=== PATIENT | female | born 1935 | race Caucasian/White ===

== ENCOUNTER → 2017-09-06 11:28 | Outpatient (CLI) | payer MEDICARE, BC, SELFPAY ==
--- NOTE | 2017-09-06 11:33 | RAD_ITS ---
STUDY: X-RAY - SACRUM/COCCYX REASON FOR EXAM: Female, 82 years old. Back pain. TECHNIQUE: 4 view(s) of the sacrum and coccyx were obtained. COMPARISON: None. FINDINGS: There is generalized osteopenia. There is mild arthrosis of both sacroiliac joints. Extensive laminectomy and fusion changes are noted in the lower lumbar spine. There are phleboliths in the pelvis. RAD/Sacrum-Coccyx min 2 Views IMPRESSION: Osteopenia with postsurgical changes in the lower lumbar spine. Mild arthrosis of the sacroiliac joints. No acute abnormality. Electronically Signed: Leonardo Welsh MD at 17:22 EST , Service support ,
--- NOTE | 2017-09-06 11:33 | RAD_ITS ---
STUDY: X-RAY - THORACIC SPINE REASON FOR EXAM: Female, 82 years old. Chronic back pain. TECHNIQUE: 4 view(s) of the thoracic spine were obtained. COMPARISON: None. FINDINGS: Normal kyphosis of the thoracic spine. There is no substantial scoliosis. There is demineralization of the thoracic spine with endplate spondylosis. There is multilevel disc space narrowing of the thoracic spine. Atherosclerotic calcification of the aortic arch. RAD/Thoracic Spine 3 Views IMPRESSION: Multilevel disc space narrowing and spondylosis. Electronically Signed: Sandoval Arteaga MD at 15:55 EST Tel [phone], Service support ,
--- NOTE | 2017-09-06 11:33 | RAD_ITS ---
STUDY: X-RAY - LUMBAR SPINE REASON FOR EXAM: Female, 82 years old. Back pain. TECHNIQUE: 4 view(s) of the lumbar spine were obtained. COMPARISON: April 29, 2014 FINDINGS: There is generalized osteopenia. There are stable laminectomies with posterior fusion from L4 to S1. There is marked intervertebral disc space narrowing of the lower thoracic and upper lumbar vertebral bodies. There is a 11 mm of anterolisthesis of L5 on S1 unchanged. There is vascular calcification. There are clips in the right lower quadrant of the abdomen. There are coils projected over the sacrum. RAD/L/S Spine Min 4 Views IMPRESSION: Stable appearance of the lumbar spine with postfusion changes, lumbar spondylosis and grade 1 anterolisthesis of L5 on S1. No new or acute abnormality. Electronically Signed: Leonardo Welsh MD at 17:25 EST , Service support ,
== END ==
PROVIDERS: Family Provider Nurse Practitioner; PCP Nurse Practitioner; Visit Provider Anesthesiology
DX: M54.5 Low back pain (principal)
CPT/HCPCS: 72072; 72110; 72220

== ENCOUNTER → 2017-09-12 13:44 | Outpatient (CLI) | payer MEDICARE, BC, SELFPAY ==
--- NOTE | 2017-09-12 13:49 | RAD_ITS ---
STUDY: X-RAY - LEFT ELBOW REASON FOR EXAM: Female, 82 years old. Pain, fall TECHNIQUE: 3 view(s) of the elbow. COMPARISON: None. FINDINGS: Normal visualized humerus, radius and ulna. Normal radiocapitellar and ulnotrochlear articulations. The soft tissue structures are unremarkable. RAD/Elbow min 3 Views IMPRESSION: Normal x-ray examination of the elbow. Electronically Signed: Moncho Jimenez DO at 22:49 EST Tel [phone], Service support ,
== END ==
PROVIDERS: Family Provider Nurse Practitioner; PCP Nurse Practitioner; Visit Provider Nurse Practitioner
DX: M25.522 Pain in left elbow (principal)
CPT/HCPCS: 73080

== ENCOUNTER → 2017-09-20 14:13 | Outpatient (CLI) | payer MEDICARE, BC, SELFPAY ==
[2017-09-20 14:24] LABS: Absolute Lymphocyte Count 0.92 X10^3/ul (0.83-4.51); Absolute Neutrophil Count 5.6 X10^3/uL (2.0-7.7); Basophil# 0.04 X10^3/uL; Basophil% 0.5 % (0-1); Eosinophil# 0.16 X10^3/uL; Eosinophils% 2.1 % (0-5); Hematocrit 25.9 % (37-47); Hemoglobin 7.3 g/dl (12.0-15.0); Lymphocyte # 0.92 X10^3/ul (4.0); Lymphocyte % 12.2 % (19-41); Mean Corp Hgb Conc 28.2 g/gl (32-36); Mean Corpuscular Hgb 26.8 pg (27.0-32.0); Mean Corpuscular Volume 95.2 fL (81-99); Mean Platelet Vol. 9.3 fl (6.2-12.0); Monocyte# 0.84 X10^3/uL; Monocyte% 11.1 % (0-10); Neutrophil # 5.58 X10^3/uL (2.7-7.7); POSITIVE COUNT NO; POSITIVE DIFFERENTIAL NO; POSITIVE MORPHOLOGY NO; Platelet Count 369 K/mm3 (150-450); RBC Distribution Width CV 17.9 % (11.6-14.6); RBC Distribution Width SD 59.2 fl (35.1-43.9); Red Blood Count 2.72 M/mm3 (4.2-5.4); White Blood Count 7.6 K/mm3 (4.4-11.0)
== END ==
PROVIDERS: Family Provider Nurse Practitioner; PCP Nurse Practitioner; Visit Provider Nurse Practitioner
DX: D64.9 Anemia, unspecified (principal)
CPT/HCPCS: 85025

== ENCOUNTER 2017-09-20 15:52 | Emergency (ER) | payer MEDICARE, BC, SELFPAY ==
[2017-09-20 15:53] VITALS: BP 158/78; PULSE 94; RESP 18; TEMP 36.8; O2SAT 98; BMI 40.6
--- NOTE | 2017-09-20 16:24 | RAD_ITS ---
STUDY: X-RAY CHEST REASON FOR EXAM: Female, 82 years old. COMPLAINS OF N/V/D, ABD PAIN, EDEMA BILATERAL LEGS FOR PAST 2-3 WEEKS. FATIGUED, SOB TECHNIQUE: Single frontal view of the chest. COMPARISON: None. FINDINGS: Chronic appearing increased interstitial lung markings. There is a hiatal hernia. There is no demonstrated pleural abnormality. Enlarged heart size. Normal mediastinum and georgi. Normal visualized pulmonary arteries. There is atherosclerotic calcification of the aortic arch with tortuosity. There are diffuse degenerative changes of the visualized thoracic spine. There is degenerative osteoarthritis of the bilateral shoulders. There is no demonstrated abnormality of the visualized soft tissue structures of the upper abdomen. RAD/Chest 1 View (Portable) IMPRESSION: There are no acute findings. Large hiatal hernia. Cardiomegaly. Electronically Signed: Lyle Marks MD at 16:57 EST , Service support ,
--- NOTE | 2017-09-20 16:30 | ED.VISSUMM ---
- ER Visit Summary Date of Service: 09/20/17 Chief Complaint: Diarrhea History of Present Illness: The patient is a 82 F who sees Heidi Nelson. She reports that she has diarrhea that began 2-3 week ago. She is having this 2-3 times per day. She reports that she did not have any last evening and has not had any today. Ports there is 1-2 drops of bright red blood. However, the diarrhea itself is black. She is on iron, but reports that it is very foul-smelling. She complains of an aching diffuse abdominal pain that is 8 out of 10 at worst and 5 out of 10 currently. Is worsened by nothing and relieved by having a bowel movement. Patient reports she is short of breath with walking. She denies any chest pain. She has ankle and leg swelling over the same timeframe as the diarrhea that she has not had previously to this degree. She also complains of generalized weakness. Physical Examination: Vitals: Stable. Afebrile. General: Well-nourished and well-developed. Head: Normocephalic atraumatic. Neck: Supple, no lymphadenopathy. No JVD. Nontender. Cardiovascular: Regular rate and rhythm. No murmurs. Respiratory: No respiratory distress. Clear to auscultation bilaterally. Abdominal: Soft, mild diffuse sinus palpation that is worst in the epigastric region, nondistended, normal bowel sounds. No guarding, rebound, or peritoneal signs. Back: Nontender. Extremities: Nontender, no edema. Skin: Normal color, no rash. Neurologic: Alert and oriented ?3. Cranial nerves II through XII are intact. Normal strength and sensation. Psych: Normal affect. Test Results: CBC is remarkable for an H&H of 7.3 and 25.9, segmented neutrophils of 74, lymphocytes of 12, monocytes of 11. Her last hemoglobin was on June 162016 and at that time it was 13.1. Was 9.5-11.4 the remainder of 2017. Chem-7 is marked for chloride of 110, calcium 8.4, creatinine 1.25. LFTs marked for total protein is 6.2, albumin of 3.0, AST of 13. Lipase is normal. INR is 1.0. PTT is 25.0. Chest x-ray shows a large hiatal hernia. Emergency Department Course and Treatment: Patient had an IV placed. She was given a 500 cc bolus of normal saline. She was given Protonix IV. Orthostatic vital signs were negative. However, she was very short of breath with ambulating to the bathroom. Treatment Plan: Patient was discussed with Dr. Dumont who is reviewed her records. She states because of the hiatal hernia and the potential of bleeding from that that the patient needs to be transferred as this is out of her scope of practice. I discussed this with the patient and her family. They have opted to go to [facility]. She was discussed with Dr. Villa who is accepted her in transfer. Disposition: Transferred in stable condition. Impression: 1. Anemia, acute. 2. Diarrhea. 3. Hiatal hernia. This note was generated with [employer] dictation software. It may contain incorrect words, spelling, and punctuation that were not noted in review of the chart prior to signing ED Disposition - Plan for ED Patient: Chief Complaint: Nausea/Vomiting/Diarrhea Referrals: Heidi Mack [ALLIED HEALTH PROFESSIONAL] -
[2017-09-20 16:43] VITALS: BP 181/78; BP 188/87; BP 189/92; PULSE 100; PULSE 90; PULSE 94
[2017-09-20 17:07] LABS: AST(SGOT) 13 U/L (15-37); Alanine Aminotransfer ALT/SGPT 19 U/L (13-56); Alkaline Phosphatase 84 U/L (45-117); Anion Gap 11 (5-15); BUN 17 mg/dL (7-18); BUN/Creat Ratio 13.6 RATIO (10-20); Bilirubin, Direct 0.07 mg/dL (0.00-0.30); Calcium,Total 8.4 mg/dL (8.5-10.1); Chloride 110 mmol/L (98-107); Creatinine, Serum 1.25 mg/dL (0.55-1.02); EST Glomerular Filtration Rate 44 mL/min (>60); Est Glom Filt Rate - Afr Amer 53 mL/min (>60); Estimated Creatinine Clearance 49.15 ml/min; Globulin 3.2 g/dL (2.2-4.2); Glucose 100 mg/dL (74-106); Lipase 115 U/L (73-393); Protein, Total 6.2 g/dL (6.4-8.2); Sodium Level 144 mmol/L (136-145)
[2017-09-20 18:22] VITALS: PULSE 95; RESP 20; O2SAT 100
[2017-09-20 18:24] VITALS: BP 158/71; PULSE 98; RESP 20; O2SAT 100
--- NOTE | 2017-09-20 19:42 | ED.RN ---
CALLED [facility] TO SEE IF WE WERE STILL WAITING ON A BED FOR PATIENT. ROSETTA IN THE CALL CENTER STATED THAT WE HAD A BED, SHE GAVE IT TO ME AND THE NUMBER FOR NURSE TO NURSE.
[2017-09-20 20:24] VITALS: BP 139/72; PULSE 94; RESP 15; O2SAT 100
== END 2017-09-20 20:45 | disposition short-term general hospital (02) ==
PROVIDERS: Emergency Provider Emergency Medicine; Family Provider Internal Medicine; PCP Internal Medicine
DX: D64.9 Anemia, unspecified (principal); R19.7 Diarrhea, unspecified; K44.9 Diaphragmatic hernia without obstruction or gangrene; K92.1 Melena; R10.84 Generalized abdominal pain; I10 Essential (primary) hypertension; R06.02 Shortness of breath; M79.89 Other specified soft tissue disorders; R51 Headache; Z86.718 Personal history of other venous thrombosis and embolism; Z79.52 Long term (current) use of systemic steroids; Z79.899 Other long term (current) drug therapy
CPT/HCPCS: 71045; 80048; 80076; 83690; 85025; 85610; 85730; 86850; 86900; 96361; 96365; 96366; 99285; J7040; A4216; J3490

== ENCOUNTER 2017-10-05 13:00 | Outpatient (RCR) | payer MEDICARE, BC, SELFPAY ==
--- NOTE | 2017-09-11 08:16 | HP.PTEVAL ---
Patient's Visit Information LOLLY HUSAIN is a 82 year old F referred to Physical Therapy by MD SAMANTHA Aj with a diagnosis of Low back pain and leg pain. Date of Evaluation: 09/06/17 Physical Therapist: Fernie Coronado - Visit Plan Frequency: 2x /Week Duration: 4-6 Weeks Plan: Start with supine core strengthening, HS stretching, flexion based exercises (but small ROM). Use lossings traction with ice/heat to reduce symptoms. Progress to functional strengthening once symptoms have reduced. - Subjective Subjective: Pt. is here today for her initial evaluation with diagnosis of low back pain and leg pain. She reports having pain for many years with having 2 surgeries, pt. unsure of what lumbar surgeries that were performed. Pt. has had increased pain over the last 4 years. Increase pain: walking, bending, lifting. Decreases pain: pain meds (slightly), sitting, injections (slightly). Pt. has trialed ice and heat, minimal relief. Pt. reports pain radiating down BLE with walking, standing and prolonged sitting. Pt. reports having a constant 10/10 pain that elevates to 10/14 at times. She lives at home and increased assistance from daughter. Pt. denies N/T and no change in B/B. She did have PT in aquatic setting last year without positive changes. Pt. reports using FWW with all mobility, but does not leave the house unless to visit physician. Pt. uses temprapedic bed at home with ability to elevate her head. Pt. does get leg pain that extends to her feet at times, down posterior aspect of her legs. Pt. had recent injections with slight reduction in symptoms. She is hopeful to reduce symptoms in order to improve quality of life and increase overall mobility. - Pain Lumbar spine Pain Intensity (Out of 10): 10 Pain Intensity Range: 4, 10 Bilateral LEs Pain Intensity (Out of 10): 6 Pain Intensity Range: 3, 10 - Objective POSTURE: Pt. has overall generally flexed posture. Pt. stands with FWW without heavy use. Pt. has wide ETHEL with anteror tilted pelvis. She has rounded shoulders and FH. PALPATION: Pt. has increased pain with palpation throughout lumbar erector spinea, bilateral SI region, mild pain at bilateral piriformis and HS region. NEUROLOGICAL: Pt. has has normal sensation to light and sharp touch of bilateral LEs. Pt. has 2+ patellar and achilles DTR. Pt. has difficulty rising on heels and toes and requires BA to complete. Pt. does have increased postural sway with removal of BA. ROM: LUMBAR SPINE: flexion mod loss mild increase NW, ext max loss incease worse, SB mod loss bilat increase NW, rotation mod loss bilat increase NW. HIP- R- flexion 100deg increase NW, abd 45deg NE, ext 8deg increase NW, ER 48deg increase NW, IR 28deg increase NW. L hip- flexion 108deg increase NW, abd 43deg NE, ext 6deg increase NW, ER 49deg increase NW, IR 22deg increase NW. MMT: RLE- ankle- 5-/5 throughout; knee- 4/5 throughout; hip- flexion 4-/5, abd 4-/5, ext 4-/5. LLE- ankle 4+/5 throughout; knee- 5/5 throughout; hip- flexion 4-/5, abd 4-/5, ext 4-/5. Core strength- poor. GAIT: Pt. was able to ambulate with FWW 1x89ft. with increased posterior BLE pain, increased fatigue (pt. reports high levels of fatigue). Pt. has heavy use of AD, fwrd flexed posture (difficulty correcting with increased pain). Pt. has decreased step length bilaterally., minimal hip ext noted. - Special Tests L/S Slump test left side: Negative L/S Slump test right side: Negative L/S Left Straight Leg Raise: Negative L/S Right Straight Leg Raise: Negative Lumbar Standing: Flexion - Mechanical Response: No effect Lumbar Standing: Flexion - Symptoms During Testing: Increases Lumbar Standing: Flexion - Symptoms After Testing: No worse Lumbar Standing: Extension - Mechanical Response: No effect Lumbar Standing: Extension - Symptoms During Testing: Increases Lumbar Standing: Extension - Symptoms After Testing: Worse Lumbar Standing: Right Side Glides - Mechanical Response: No effect Lumbar Standing: Right Side [place] - Symptoms During Testing: Increases Lumbar Standing: Right Side [place] - Symptoms After Testing: No worse Lumbar Standing: Left Side [place] - Mechanical Response: No effect Lumbar Standing: Left Side [place] - Symptoms During Testing: Increases Lumbar Standing: Left Side [place] - Symptoms After Testing: No worse Lumbar Lying: Flexion - Mechanical Response: No effect Lumbar Lying: Flexion - Symptoms During Testing: Decreases Lumbar Lying: Flexion - Symptoms After Testing: No better Comments:: Pt. has postive cross legged testing - Goals Goal 1:: P. to be I with HEP. Goal Time Frame: 4-6 Weeks Goal 2:: Pt. to have increased BLE and core strength by 1/2 grade of all effected musculature reducing stress applied to lumbar spine with all functional mobility. Goal Time Frame: 4-6 Weeks Goal 3:: Pt. to have decreased pain while sitting to 3-4/10 allowing for increased quality of life. Goal Time Frame: 4-6 Weeks Goal 4:: Pt. to walk 200ft.+ with FWW GLENN with 3-4/10 pain allowing for increased ability to ambulate in community. Goal Time Frame: 4-6 Weeks Goal 5:: Pt. to sleep throughout the night with 2-4/10 pain allowing for increased quality of life. Goal Time Frame: 4-6 Weeks - Rehabilitation Potential Physical Therapy Diagnosis: Pt. has signs and symptoms with lumbar spine pathology most likely spinal stenosis with radiationg down BLEs. Pt. has significant weakness in BLEs and core strength. Pt. is also deconditioned with all fucntional mobility, walking upto 89ft. this date. Pt. appears to have a slight directional preference for flexion, but would ultimately have benefit from PT to increase overall mobility and increase BLE and core strength. Rehabilitation Potential: Fair - Anticipated Interventions Patient/Client Instruction: Educate patient on: Condition, Plan of Care, Risk Factors, Benefits of Fitness Program For the Purpose of:: To improve health and function, To foster healthy habits, To improve decision making, To facilitate caregiver knowledge, To improve self management, To prevent re-injury, To improve ability to perform tasks related to life management, To improve tolerance to ADL's Therapeutic Exercise to Include: Strength training, Power training, Postural training, Flexibilty training, Gait and locomotor training, Passive ROM, Active ROM, Dynamic Lumbar Stabilization, Vicky Exercises For the Purpose of:: To decrease pain, To increase ROM, To improve nutrient delivery to tissue, To increase oxygenation perfusion, To improve muscle performance and motor function, To improve ability to perform ADL's, To increase tolerance to activity/condition/position, To improve performance and independence with ADL's, To decrease level of supervision to perform tasks, To improve ability of physical actions for home/community/work/leisure, To improve gait and locomotor functions, To improve health of tissue IF ES: Yes Ultrasound (thermal/non thermal): Yes Pelvic traction supine: Yes For the Purpose of:: To decrease pain, To increase ROM, To improve nutrient delivery to tissue, To increase oxygenation perfusion, To improve muscle performance and motor function, To improve ability to perform ADL's Thank you for the opportunity to evaluate your patient. For Medicare and Medicare HMO plans, please review the plan of care and approve it. It will need to be FAXED BACK to us at [phone] for Medicare purposes. Please let me know if there are questions or concerns regarding this plan of care. Physician Signature: Date:
--- NOTE | 2018-03-07 18:49 | HP.PT.NRP ---
HP - Discharge Summary (1) - Patient Information LOLLY HUSAIN was seen in my office for initial evaluation on 09/06/17. The following Plan of Care was established for this patient: Initial Frequency: 2x /Week Initial Duration: 4-6 Weeks - Anticipated Interventions Patient/Client Instruction: Educate patient on: Condition, Plan of Care, Risk Factors, Benefits of Fitness Program For the Purpose of:: To improve health and function, To foster healthy habits, To improve decision making, To facilitate caregiver knowledge, To improve self management, To prevent re-injury, To improve ability to perform tasks related to life management, To improve tolerance to ADL's Therapeutic Exercise to Include: Strength training, Power training, Postural training, Flexibilty training, Gait and locomotor training, Passive ROM, Active ROM, Dynamic Lumbar Stabilization, Vicky Exercises For the Purpose of:: To decrease pain, To increase ROM, To improve nutrient delivery to tissue, To increase oxygenation perfusion, To improve muscle performance and motor function, To improve ability to perform ADL's, To increase tolerance to activity/condition/position, To improve performance and independence with ADL's, To decrease level of supervision to perform tasks, To improve ability of physical actions for home/community/work/leisure, To improve gait and locomotor functions, To improve health of tissue IF ES: Yes Ultrasound (thermal/non thermal): Yes Pelvic traction supine: Yes For the Purpose of:: To decrease pain, To increase ROM, To improve nutrient delivery to tissue, To increase oxygenation perfusion, To improve muscle performance and motor function, To improve ability to perform ADL's This patient was last seen in our office 10/05/17. Pertinent comments regarding their Physical therapy will appear below: Pt. was seen for her low back pain and leg pain. Pt. was treated with BLE/core stability exercises. Pt. cancelled the rest of her appointments as she felt that her symptosm were getting worse. Pt. has not been seen in 4 months and will be DC from PT at this point in time. At this point I will be discontinuing this patient from physical therapy. I would be happy to see this patient again in the future if found appropriate by the physician. Thank you! Fernie Coronado
== END 2017-10-05 19:00 | disposition home or self-care (01) ==
LOC: PT 13:00
PROVIDERS: Family Provider Nurse Practitioner; PCP Nurse Practitioner; Visit Provider Anesthesiology
DX: M54.9 Dorsalgia, unspecified (principal); M79.606 Pain in leg, unspecified; M54.5 Low back pain
CPT/HCPCS: 72072; 72110; 72220; 97012; 97035; 97110; 97162

== ENCOUNTER → 2017-10-24 15:13 | Outpatient (CLI) | payer MEDICARE, BC, SELFPAY ==
--- NOTE | 2017-10-24 15:18 | RAD_ITS ---
STUDY: X-RAY CHEST REASON FOR EXAM: Female, 82 years old. Cough and congestion TECHNIQUE: PA and lateral views of the chest. COMPARISON: 09/20/2017 FINDINGS: Large hiatal hernia with air-fluid level again noted. The lungs are clear and expanded. There is no demonstrated pleural abnormality. Normal size heart. Normal mediastinum and georgi. Normal visualized pulmonary arteries. Normal visualized aortic arch and descending thoracic aorta. Normal visualized thoracic spine. Normal visualized ribs, clavicles, and shoulders. There is no demonstrated abnormality of the visualized soft tissue structures of the upper abdomen. RAD/Chest PA and Lateral IMPRESSION: Clear lungs. Stable large hiatal hernia with air-fluid level Electronically Signed: Stef Mendez DO at 16:03 EDT Tel , Service support ,
== END ==
PROVIDERS: Family Provider Internal Medicine; PCP Internal Medicine; Visit Provider Internal Medicine
DX: R05 Cough (principal)
CPT/HCPCS: 71046

== ENCOUNTER → 2017-11-15 16:44 | Outpatient (CLI) | payer MEDICARE, BC, SELFPAY ==
[2017-11-15 17:52] LABS: Hemoglobin 8.8 g/dl (12.0-15.0); Mean Corp Hgb Conc 29.3 g/gl (32-36); Mean Corpuscular Hgb 23.9 pg (27.0-32.0); Mean Corpuscular Volume 81.5 fL (81-99); Mean Platelet Vol. 9.3 fl (6.2-12.0); Platelet Count 329 K/mm3 (150-450); RBC Distribution Width CV 19.8 % (11.6-14.6); RBC Distribution Width SD 56.1 fl (35.1-43.9); Red Blood Count 3.68 M/mm3 (4.2-5.4); White Blood Count 10.3 K/mm3 (4.4-11.0)
[2017-11-15 17:55] LABS: Scan Indicated on CBC? Y/N NO
[2017-11-15 18:34] LABS: Ferritin 15 ng/mL (8-252); Iron 20 ug/dL (50-170)
== END ==
PROVIDERS: Family Provider Internal Medicine; PCP Internal Medicine; Visit Provider Internal Medicine Gastroenterology
DX: D50.9 Iron deficiency anemia, unspecified (principal)
CPT/HCPCS: 36415; 82728; 83540; 85027

== ENCOUNTER → 2017-12-08 15:14 | Outpatient (CLI) | payer MEDICARE, BC, SELFPAY ==
[2017-12-08 16:23] LABS: ALB/GLOB Ratio 0.9 RATIO (0.9-2.4); AST(SGOT) 15 U/L (15-37); Alanine Aminotransfer ALT/SGPT 25 U/L (13-56); Albumin, Serum 2.9 g/dL (3.2-5.0); Alkaline Phosphatase 79 U/L (45-117); Anion Gap 6 (5-15); BUN 20 mg/dL (7-18); BUN/Creat Ratio 16.1 RATIO (10-20); Calcium,Total 8.9 mg/dL (8.5-10.1); Chloride 109 mmol/L (98-107); Creatinine, Serum 1.24 mg/dL (0.55-1.02); EST Glomerular Filtration Rate 44 mL/min (>60); Est Glom Filt Rate - Afr Amer 53 mL/min (>60); Ferritin 66 ng/mL (8-252); Globulin 3.3 g/dL (2.2-4.2); Glucose 86 mg/dL (74-106); Potassium 4.7 mmol/L (3.5-5.1); Protein, Total 6.2 g/dL (6.4-8.2); Sodium Level 141 mmol/L (136-145)
[2017-12-08 16:47] LABS: Absolute Lymphocyte Count 1.17 X10^3/ul (0.83-4.51); Absolute Neutrophil Count 4.5 X10^3/uL (2.0-7.7); Basophil# 0.07 X10^3/uL; Eosinophil# 0.46 X10^3/uL; Eosinophils% 6.4 % (0-5); Hemoglobin 8.7 g/dl (12.0-15.0); Lymphocyte # 1.17 X10^3/ul (4.0); Lymphocyte % 16.3 % (19-41); Mean Corpuscular Hgb 27.4 pg (27.0-32.0); Mean Corpuscular Volume 94.6 fL (81-99); Mean Platelet Vol. 9.2 fl (6.2-12.0); Monocyte# 0.93 X10^3/uL; Neutrophil # 4.46 X10^3/uL (2.7-7.7); Neutrophil % 62.3 % (47-70); Platelet Count 338 K/mm3 (150-450); Red Blood Count 3.17 M/mm3 (4.2-5.4); White Blood Count 7.2 K/mm3 (4.4-11.0)
[2017-12-08 16:51] LABS: Differential Indicated SCAN CRITERIA MET; POSITIVE COUNT NO; POSITIVE DIFFERENTIAL NO; POSITIVE MORPHOLOGY YES
[2017-12-08 18:03] LABS: Anisocytosis 4+; Differential Comment SCANNED; Macrocytosis 1+; Platelet Estimate ADEQUATE (ADEQ); Polychromasia 1+; Stomatocyte RARE; Tear Drop Cell RARE
== END ==
PROVIDERS: Family Provider Internal Medicine; PCP Internal Medicine; Visit Provider Internal Medicine Rheumatology
DX: M06.00 Rheumatoid arthritis without rheumatoid factor, unspecified site (principal); D64.9 Anemia, unspecified; G25.81 Restless legs syndrome; M79.7 Fibromyalgia; M15.9 Polyosteoarthritis, unspecified; K21.0 Gastro-esophageal reflux disease with esophagitis; F32.89 Other specified depressive episodes; E78.5 Hyperlipidemia, unspecified; M47.897 Other spondylosis, lumbosacral region; Z79.899 Other long term (current) drug therapy
CPT/HCPCS: 36415; 80053; 82728; 85025

== ENCOUNTER → 2018-01-24 15:41 | Outpatient (CLI) | payer MEDICARE, BC, SELFPAY ==
--- NOTE | 2018-01-24 15:44 | RAD_ITS ---
STUDY: X-RAY CHEST REASON FOR EXAM: Female, 82 years old. Dyspnea TECHNIQUE: PA and lateral views of the chest. COMPARISON: None. FINDINGS: Mild prominence of interstitial markings throughout both lungs, unchanged. No confluent airspace infiltrate. No pleural effusion or pneumothorax. Mild cardiomegaly. Moderate-sized hiatal hernia. Normal visualized pulmonary arteries. There is atherosclerotic calcification of the aortic arch. There are diffuse degenerative changes of the visualized thoracic spine. Normal visualized ribs, clavicles, and shoulders. There is no demonstrated abnormality of the visualized soft tissue structures of the upper abdomen. RAD/Chest PA and Lateral IMPRESSION: 1. Chronic interstitial change, potentially representing sequelae from chronic edema. 2. Mild cardiomegaly. 3. Moderate-sized hiatal hernia. Electronically Signed: Tod Henderson MD at 3:16 EDT Tel , Service support ,
== END ==
PROVIDERS: Family Provider Internal Medicine; PCP Internal Medicine; Visit Provider Internal Medicine
DX: R06.02 Shortness of breath (principal)
CPT/HCPCS: 71046

== ENCOUNTER → 2018-01-29 07:58 | Outpatient (CLI) | payer MEDICARE, BC, SELFPAY ==
[2018-01-29] VITALS (8 sets, daily range): BP systolic 134–186; BP diastolic 49–80; PULSE 82–94; RESP 16–18; TEMP 35.9–36.8; O2SAT 96–100; BMI 39.0
[2018-01-29] MEDS: Furosemide 20 MG/2 ML VIAL IV (11:56)
== END ==
PROVIDERS: Family Provider Internal Medicine; PCP Internal Medicine; Visit Provider Internal Medicine
DX: D64.9 Anemia, unspecified (principal)
CPT/HCPCS: 36415; 36430; 86850; 86900; 86920; 86922; J7040; P9016; A4216; J1940

== ENCOUNTER → 2018-01-30 14:37 | Outpatient (CLI) | payer MEDICARE, BC, SELFPAY ==
[2018-01-30 15:02] LABS: Hematocrit 34.1 % (37-47); Hemoglobin 10.5 g/dl (12.0-15.0)
== END ==
PROVIDERS: Family Provider Internal Medicine; PCP Internal Medicine; Visit Provider Internal Medicine
DX: D53.9 Nutritional anemia, unspecified (principal)
CPT/HCPCS: 36415; 85014; 85018

== ENCOUNTER → 2018-02-06 08:02 | Outpatient (CLI) | payer MEDICARE, BC, SELFPAY ==
--- NOTE | 2018-02-06 08:05 | CT_ITS ---
STUDY: CT CHEST WITHOUT CONTRAST REASON FOR EXAM: Female, 82 years old. ABNORMAL CXR RADIATION DOSAGE (If Supplied By Facility): CTDIvol = ( 24.18 ) mGy, DLP = ( 812.16 ) mGycm TECHNIQUE: Transaxial imaging was performed without the administration of intravenous contrast material. Individualized dose optimization techniques were used for this CT. COMPARISON: CR Chest Jan 24 2018 3:51pm and CT of 8.16.17 FINDINGS: There is no pneumothorax. There are interstitial fibrotic changes of the lungs. There are degenerative changes of the shoulders. There is no demonstrated pleural abnormality. There are calcifications of the coronary arteries. Normal mediastinum. Normal hilar regions. Normal pulmonary arteries. There is atherosclerotic calcification of the aortic arch with tortuosity and elongation of the aortic arch and descending thoracic aorta. There are multi-level degenerative changes of the thoracic spine. Large hiatal hernia. Gallbladder is not visualized. CT/Chest without Contrast IMPRESSION: There is mild peripheral pulmonary fibrosis. Electronically Signed: Lyle Marks MD at 19:02 EDT , Service support ,
== END ==
PROVIDERS: Family Provider Internal Medicine; PCP Internal Medicine; Visit Provider Internal Medicine
DX: R93.8 Abnormal findings on diagnostic imaging of other specified body structures (principal)
CPT/HCPCS: 71250

== ENCOUNTER 2018-03-09 13:08 | Day surgery (SDC) | payer MEDICARE, BC, SELFPAY ==
[2018-03-09 13:30] VITALS: BP 149/68; PULSE 77; RESP 16; TEMP 36.1; O2SAT 94; BMI 38.9
--- NOTE | 2018-03-09 14:00 | RAD_ITS ---
STUDY: X-RAY - LUMBAR SPINE REASON FOR EXAM: Female, 82 years old. Lumbar block L3-S1 TECHNIQUE: 2 view(s) of the lumbar spine were obtained. COMPARISON: None FINDINGS: Two intraoperative images of the lumbar spine were submitted. There are bilateral pedicle screws at L4, L5 and S1. There is evidence of prior laminectomies at these levels as well. There are posterior spinal markers noted from L3/L4 to the sacrum. RAD/Lumbar Spine 2 or 3 Views IMPRESSION: Posterior spinal markers visualized L3/L4 to the sacrum. Please refer to the intraoperative report for further discussion. Electronically Signed: Roxy Hannah MD at 16:01 EDT Tel , Service support ,
--- NOTE | 2018-03-09 14:24 | DCINST_ITS ---
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 Reason(s) for Visit for Discharge Instructions: Facet joints block You will use the following diet at home:: No restrictions Discharge Activity: Return to Normal Activity Return to work on:: 03/12/18 May shower in (days): 1 December resume sexual activity in: No Restrictions Weight Bearing Status: Weight bearing as tolerated Call your doctor if your incision/area has: Increased Pain/ Swelling Call your doctor if you observe: Uncontrolled pain Suture Line Care: Avoid Pulling/Pushing, Avoid Pinching/Bending Change Dressing in (Days):: 1 Remove Dressing in (days):: 1 Cleanse incision/area with: Soap & Water Allergies/Adverse Reactions: Allergies No Known Allergies Allergy (Verified 09/20/17 15:56) Medications to take at Discharge Butalb/Acetaminophen/Caffeine [Fioricet 50-300-40 mg Capsule] 1 each PO Q4H PRN PRN 02/16/14 Diphenoxylate HCl/Atropine [Lomotil 2.5-0.025 mg Tablet] 1 each PO TID PRN PRN 02/16/14 Duloxetine Hcl [Cymbalta] 60 mg PO BID 02/16/14 Esomeprazole Mag Trihydrate [Nexium] 40 mg PO DAILY 02/16/14 Zolpidem Tartrate [Ambien] 10 mg PO QHS PRN PRN 02/16/14 Atenolol [Tenormin (beta Kate)] 25 mg PO BID 06/09/15 Hydroxychloroquine [Plaquenil] 200 mg PO BIDCM 06/09/15 Ropinirole HCl [Requip] 0.5 mg PO QHS 06/09/15 Sumatriptan Succinate [Imitrex] 100 mg PO .X1 PRN MDD MIGRAINE 06/09/15 Gabapentin [Neurontin] 100 mg PO BID 09/20/16 Gabapentin [Neurontin] 300 mg PO QHS 09/20/16 Iron Carbonyl [Feosol] 65 mg PO BID 04/19/17 Lidocaine/Transparent Dressing [Lidocaine 4% Kit] 1 each TP BID PRN 04/19/17 Prednisone 10 mg PO PRN PRN 04/19/17 Multivitamins,Therapeutic [Multivitamin] 1 tablet PO DAILY 01/29/18 Hydrocodone/Acetaminophen [[place] 5-325 Tablet] 1 each PO BID PRN PRN 03/09/18 Primary Care Physician: Candice Amado DO [Primary Care Provider] - Test Results: Test results from this visit will be discussed in further detail at your follow- up appointment, if applicable. Please Follow Up With: Eris Jimenez MD
--- NOTE | 2018-03-09 14:24 | PCM.OPRPT ---
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 Patient placed in the prone position, pressure points were padded, patient was ready from the nursing and the anesthesia team. After identification of the side and the target area for the block under guided fluoroscopy, the entry site was marked with marking pen. I used Betadine for sterilization of the skin, sterile draping were applied. Using 25-gauge needle to infiltrate the skin with local anesthesia using preservative-free lidocaine 1 % injected 2.5 mL at each site of entry. Using oblique fluoroscopy, accessed the Left medial nerve branch supplying the Left lumbar facets L3-4, L4-5, L5-S1 using 22-gauge spinal needle. After confirmation of appropriate needle placement to the targeted area with AP and lateral fluoroscopy, injected 2.5 mL mixture of preservative-free Marcaine 0.25% and Kenalog [20] mg at each site. [place] was removed, pressure dressing were applied. Patient tolerated the procedure well and was taken to the recovery. Type of Anesthesia:: Local MAC, Local Estimated Blood Loss (mL): None
[2018-03-09] MEDS: Bupivacaine 0.25% 30 ML Vial (14:40)
[2018-03-09] MEDS: Triamcinolone Acetonide 40 MG/ML Vial (14:40)
[2018-03-09 14:52] VITALS: BP 149/68; BP 154/50; PULSE 78; RESP 16; TEMP 36.8; O2SAT 100
[2018-03-09 15:20] VITALS: BP 149/68
== END 2018-03-09 15:25 | disposition home or self-care (01) ==
LOC: SDC 13:08 → AC 13:09
PROVIDERS: Family Provider Internal Medicine; PCP Internal Medicine; Visit Provider Anesthesiology
PROC: 3E0T3BZ Introduction of Anesthetic Agent into Peripheral Nerves and Plexi, Percutaneous Approach (ICD-10-PCS; CPT 64493; principal; 2018-03-09 13:55)
DX: M47.816 Spondylosis without myelopathy or radiculopathy, lumbar region (principal); M47.27 Other spondylosis with radiculopathy, lumbosacral region; M96.1 Postlaminectomy syndrome, not elsewhere classified; M51.36 Other intervertebral disc degeneration, lumbar region; M46.46 Discitis, unspecified, lumbar region; M46.1 Sacroiliitis, not elsewhere classified; M48.062 Spinal stenosis, lumbar region with neurogenic claudication; F41.9 Anxiety disorder, unspecified; I10 Essential (primary) hypertension; G43.909 Migraine, unspecified, not intractable, without status migrainosus; E66.9 Obesity, unspecified; Z79.899 Other long term (current) drug therapy
CPT/HCPCS: 64493; 64494; 64495; 64483; 72100; J7120

== ENCOUNTER → 2018-03-12 13:31 | Outpatient (CLI) | payer MEDICARE, BC, SELFPAY ==
--- NOTE | 2018-03-12 13:33 | CT_ITS ---
STUDY: CTA CHEST REASON FOR EXAM: Female, 82 years old. Lung nodule RADIATION DOSAGE (If Supplied By Facility): CTDIvol = ( 15.06 ) mGy, DLP = ( 691.58 ) mGycm TECHNIQUE: The examination was performed with the intravenous administration of 100 ml of Isovue 370 contrast material. Post-processing of the angiographic images was performed, with multiplanar reformation and 3D reconstruction. Individualized dose optimization techniques were used for this CT. COMPARISON: March 22, 2017. FINDINGS: Normal enhancement of the main pulmonary artery and right and left pulmonary arteries. Normal enhancement of the bilateral peripheral pulmonary arteries. There is no demonstrated pulmonary embolism. There is atherosclerotic calcification of the aortic arch and descending thoracic aorta. There is no demonstrated aortic dissection. There are calcifications of the coronary arteries. There is a large hiatal hernia. Normal hilar regions. Normal visualized trachea and bronchi. Within the right middle lobe there is a stable 8.4 mm pulmonary nodule. There is grossly stable bibasilar atelectasis and/or scarring present. There is a stable 3.8 mm nodule at the left lower lobe visualized as well. Normal chest wall structures. There are degenerative changes of thoracic spine. Normal visualized upper abdomen. CT/CTA Chest W/WO Contrast IMPRESSION: Stable 8.4 mm right middle lobe nodule. Recommend follow-up in 12 months. Atherosclerosis. Hiatal hernia. Electronically Signed: Roxy Hannah MD at 21:28 EDT Tel , Service support ,
[2018-03-12 13:45] LABS: CREATININE FINGERSTICK 1.2 mg/dL (0.55-1.02)
== END ==
PROVIDERS: Family Provider Internal Medicine; PCP Internal Medicine; Visit Provider Internal Medicine
DX: R91.1 Solitary pulmonary nodule (principal)
CPT/HCPCS: 71275; Q9967

== ENCOUNTER 2018-03-15 14:00 | Outpatient (RCR) | payer MEDICARE, BC, SELFPAY ==
--- NOTE | 2018-03-12 11:51 | HP.PTEVAL ---
Patient's Visit Information LOLLY HUSAIN is a 82 year old F referred to Physical Therapy by Eris Jimenez MD with a diagnosis of Low back pain. Date of Evaluation: 02/26/18 Physical Therapist: Fernie Coronado - Visit Plan Frequency: 1x/Week Duration: 4-6 Weeks Plan: Start with mat neutral spine core strengthening, HS stretching. Progress gym BLE strengthening, progressing to independence. - Subjective Subjective: Pt. is here today for her initial evaluation with diagnosis of low back pain. This PT is familar with this patient. Pt. has had chronic low back pain for years. Pt. recently had injections into her back with reports of mild relief in symptoms. Pt. continues to reports 5-6/10 pain in low back that increases with walking, sitting for too long and lying down. Pt. reports nothing really alleviates her pain. Pt. uses rollator for mobility in home and community. She described fatigue as limiting factor with most mobility, but also low back and anterior leg pain. Pt. reports being sedentary for most time in home. Pt. is hopeful to get exercises for her legs and core stability in order to start gym exercises safety to reduce strain applied to lumbar spine. - Pain Lumbar spine Pain Intensity (Out of 10): 5 Pain Intensity Range: 2, 7 anterior BLEs Pain Intensity (Out of 10): 5 Pain Intensity Range: 2, 5, 8 - Objective POSTURE: PT. has flexed posture in sitting and standing. Rounded shoulders, FH posture. Anterior tilt of pelvis. PALPATION: Pt. has increased tenderness of bilateral erector spinea of lumbar spine, Pt. has no anterior thigh pain. NEUROLOGICAL: Pt. has normal sensation throughout bilaterl LEs. Pt. has 2+ patellar and achilles DTR bilaterally. Pt. is able to stand and raise on heels and toes with use of balance aide, no weakness noted. ROM: lumbar spine- flexion mod loss increase NW, ext max loss increase NW, SB R mod loss increase NW, SB L mod loss increase NW, rotaton mod loss bilat increase NW. Pt. has tight HS noted bilaterally, and tight hip flexors noted bilaterally. Pt. has normal hip ROM bilaterally. MMT: RLE- 4/5 throughout; except hip flexors 4-/5, abd hip abd 4-/5. LLE- 4/5 throughout; except hip flexors 4-/5, and hip abd 4-/5. Core strength- poor. GAIT: Pt. ambulates rollator for all ambulation. Pt. ambulated 258ft. with rollator with flexed posture. Pt. reports increased fatigue as limiting factor with gait. Pt. reports increased low back pain and leg pain as well. - Special Tests L/S Slump test left side: Negative L/S Slump test right side: Negative L/S Left Straight Leg Raise: Negative L/S Right Straight Leg Raise: Negative Lumbar Standing: Flexion - Mechanical Response: No effect Lumbar Standing: Flexion - Symptoms During Testing: Decreases Lumbar Standing: Flexion - Symptoms After Testing: No better Lumbar Standing: Extension - Mechanical Response: No effect Lumbar Standing: Extension - Symptoms During Testing: Increases Lumbar Standing: Extension - Symptoms After Testing: No worse Lumbar Standing: Right Side Glides - Mechanical Response: No effect Lumbar Standing: Right Side [place] - Symptoms During Testing: Increases Lumbar Standing: Right Side [place] - Symptoms After Testing: No worse Lumbar Standing: Left Side [place] - Mechanical Response: No effect Lumbar Standing: Left Side [place] - Symptoms During Testing: Increases Lumbar Standing: Left Side [place] - Symptoms After Testing: No worse Lumbar Lying: Flexion - Mechanical Response: No effect Lumbar Lying: Flexion - Symptoms During Testing: Increases Lumbar Lying: Flexion - Symptoms After Testing: No worse - Goals Goal 1:: Pt. to be I with HEP. Goal Time Frame: 4-6 Weeks Goal 2:: Pt. to have decreased low back pain to 3/10 pain with all functional mobility. Goal Time Frame: 4-6 Weeks Goal 3:: Pt. to ambulate 500+ feet with rollator [place] without LOB with 2-3/10 pain in lumbar spine/BLEs. Goal Time Frame: 4-6 Weeks Goal 4:: Pt. to have increased BLE strength by 1/2 grade of all effected musculature. Goal Time Frame: 4-6 Weeks Goal 5:: Pt. to be I with gym exercises of BLE and core strengthening. - Rehabilitation Potential Physical Therapy Diagnosis: Pt. has signs and symptoms consistent with low back pain, most likely stenotic changes. Pt. has overall decreased muscle strength, most notably in her legs and core. Pt. also has anterior tilted pelvis and generalized flexed posture. Pt. would benefit from PT to increase BLE/core strength. Plan is to show pt. neutral spine core strengthening, and progress gym exercises in order for patient to complete independently. Rehabilitation Potential: Fair - Anticipated Interventions Patient/Client Instruction: Educate patient on: Condition, Plan of Care, Risk Factors, Benefits of Fitness Program For the Purpose of:: To improve safety, To improve health and function, To foster healthy habits, To improve decision making, To facilitate caregiver knowledge, To improve self management, To prevent re-injury, To improve ability to perform tasks related to life management, To improve tolerance to ADL's Therapeutic Exercise to Include: Strength training, Power training, Endurance training, Body mechanics, Postural training, Flexibilty training, Passive ROM, Active ROM, Dynamic Lumbar Stabilization, Vicky Exercises For the Purpose of:: To decrease pain, To decrease swelling/inflammation, To increase ROM, To improve nutrient delivery to tissue, To increase oxygenation perfusion, To improve muscle performance and motor function, To improve health of tissue, To decrease soft tissue restriction, To increase flexibility/ROM, To improve endurance TENS: Yes IF ES: Yes For the Purpose of:: To decrease pain, To increase ROM Thank you for the opportunity to evaluate your patient. For Medicare and Medicare HMO plans, please review the plan of care and approve it. It will need to be FAXED BACK to us at [phone] for Medicare purposes. Please let me know if there are questions or concerns regarding this plan of care. Physician Signature: Date:
--- NOTE | 2018-05-17 11:47 | HP.PTDCNRP_ITS ---
HP - Discharge Summary (1) - Patient Information LOLLY HUSAIN was seen in my office for initial evaluation on 02/26/18. The following Plan of Care was established for this patient: Initial Frequency: 1x/Week Initial Duration: 4-6 Weeks - Anticipated Interventions Patient/Client Instruction: Educate patient on: Condition, Plan of Care, Risk Factors, Benefits of Fitness Program For the Purpose of:: To improve safety, To improve health and function, To foster healthy habits, To improve decision making, To facilitate caregiver knowledge, To improve self management, To prevent re-injury, To improve ability to perform tasks related to life management, To improve tolerance to ADL's Therapeutic Exercise to Include: Strength training, Power training, Endurance training, Body mechanics, Postural training, Flexibilty training, Passive ROM, Active ROM, Dynamic Lumbar Stabilization, Vicky Exercises For the Purpose of:: To decrease pain, To decrease swelling/inflammation, To increase ROM, To improve nutrient delivery to tissue, To increase oxygenation perfusion, To improve muscle performance and motor function, To improve health of tissue, To decrease soft tissue restriction, To increase flexibility/ROM, To improve endurance TENS: Yes IF ES: Yes For the Purpose of:: To decrease pain, To increase ROM This patient was last seen in our office 03/15/18. Pertinent comments regarding their Physical therapy will appear below: Pt. was seen for her lumbar spondylosis in PT. Pt. desired to complete gym exercises to supplement her home exercises. Pt. was seen for 3 visits, but did not attend her last visit. Pt. has not been seen in ~2 months and will be DC f rom PT at this point in time. At this point I will be discontinuing this patient from physical therapy. I would be happy to see this patient again in the future if found appropriate by the physician. Thank you! Fernie Coroando
== END 2018-03-15 19:00 | disposition home or self-care (01) ==
LOC: PT 14:00
PROVIDERS: Family Provider Internal Medicine; PCP Internal Medicine; Visit Provider Anesthesiology
DX: M47.816 Spondylosis without myelopathy or radiculopathy, lumbar region (principal)
CPT/HCPCS: 97110; 97162

== ENCOUNTER → 2018-05-22 13:53 | Outpatient (CLI) | payer MEDICARE, BC, SELFPAY | PROVIDERS: Family Provider Internal Medicine; PCP Internal Medicine; Referring Provider Internal Medicine; Visit Provider Internal Medicine | DX: D64.9 Anemia, unspecified (principal) ==

== ENCOUNTER → 2018-05-23 08:28 | Outpatient (CLI) | payer MEDICARE, BC, SELFPAY ==
[2018-05-23] VITALS (9 sets, daily range): BP systolic 121–166; BP diastolic 57–87; PULSE 83–96; RESP 15–18; TEMP 36.3–37.2; O2SAT 98–100; BMI 37.6
[2018-05-23] MEDS: Furosemide 20 MG/2 ML VIAL IV (12:02)
== END ==
PROVIDERS: Family Provider Internal Medicine; PCP Internal Medicine; Referring Provider Internal Medicine; Visit Provider Internal Medicine
DX: D64.9 Anemia, unspecified (principal)
CPT/HCPCS: 36415; 36430; 86850; 86900; 86920; 86922; J7040; P9016; A4216; J1940

== ENCOUNTER → 2018-06-12 12:38 | Outpatient (CLI) | payer MEDICARE, BC, SELFPAY ==
[2018-06-12 13:57] LABS: Absolute Lymphocyte Count 1.33 X10^3/ul (0.83-4.51); Absolute Neutrophil Count 5.8 X10^3/uL (2.0-7.7); Basophil# 0.04 X10^3/uL; Basophil% 0.5 % (0-1); Eosinophils% 2.4 % (0-5); Hematocrit 37.3 % (37-47); Hemoglobin 10.7 g/dl (12.0-15.0); Lymphocyte # 1.33 X10^3/ul (4.0); Lymphocyte % 16.1 % (19-41); Mean Corp Hgb Conc 28.7 g/gl (32-36); Mean Corpuscular Hgb 24.7 pg (27.0-32.0); Mean Corpuscular Volume 86.1 fL (81-99); Mean Platelet Vol. 9.3 fl (6.2-12.0); Monocyte# 0.85 X10^3/uL; Monocyte% 10.3 % (0-10); Neutrophil # 5.81 X10^3/uL (2.7-7.7); Neutrophil % 70.3 % (47-70); Platelet Count 279 K/mm3 (150-450); RBC Distribution Width CV 20.7 % (11.6-14.6); RBC Distribution Width SD 64.7 fl (35.1-43.9); Red Blood Count 4.33 M/mm3 (4.2-5.4); White Blood Count 8.3 K/mm3 (4.4-11.0)
[2018-06-12 13:59] LABS: Differential Indicated SCAN CRITERIA MET; POSITIVE COUNT NO; POSITIVE DIFFERENTIAL NO; POSITIVE MORPHOLOGY YES
[2018-06-12 14:09] LABS: ALB/GLOB Ratio 0.9 RATIO (0.9-2.4); AST(SGOT) 16 U/L (15-37); Alanine Aminotransfer ALT/SGPT 21 U/L (13-56); Albumin, Serum 3.2 g/dL (3.2-5.0); Alkaline Phosphatase 99 U/L (45-117); Anion Gap 9 (5-15); BUN 19 mg/dL (7-18); BUN/Creat Ratio 12.4 RATIO (10-20); Calcium,Total 9.4 mg/dL (8.5-10.1); Chloride 110 mmol/L (98-107); Creatinine, Serum 1.53 mg/dL (0.55-1.02); EST Glomerular Filtration Rate 35 mL/min (>60); Est Glom Filt Rate - Afr Amer 42 mL/min (>60); Globulin 3.5 g/dL (2.2-4.2); Glucose 95 mg/dL (74-106); Potassium 4.4 mmol/L (3.5-5.1); Protein, Total 6.7 g/dL (6.4-8.2); Sodium Level 144 mmol/L (136-145)
[2018-06-12 14:17] LABS: Anisocytosis 1+; Hypochromasia 1+
== END ==
PROVIDERS: Family Provider Internal Medicine; PCP Internal Medicine; Referring Provider Internal Medicine Rheumatology; Visit Provider Internal Medicine Rheumatology
DX: M06.00 Rheumatoid arthritis without rheumatoid factor, unspecified site (principal); M47.897 Other spondylosis, lumbosacral region; M79.7 Fibromyalgia; M15.9 Polyosteoarthritis, unspecified; E78.5 Hyperlipidemia, unspecified; G25.81 Restless legs syndrome; K21.0 Gastro-esophageal reflux disease with esophagitis; F32.89 Other specified depressive episodes; Z79.899 Other long term (current) drug therapy
CPT/HCPCS: 36415; 80053; 85025

== ENCOUNTER 2018-07-21 12:34 | Inpatient (IN) | payer MEDICARE, BC, SELFPAY ==
[2018-07-21] VITALS (8 sets, daily range): BP systolic 128–165; BP diastolic 68–115; PULSE 80–95; RESP 18–20; TEMP 36.7–37.3; O2SAT 92–100; BMI 37.6; BMI 39.6; BMI 39.7
--- NOTE | 2018-07-21 12:48 | EKG12_ITS ---
Test Reason : ABNORMAL LABS Blood Pressure : / mmHG Vent. Rate : 090 BPM Atrial Rate : 090 BPM P-R Int : 170 ms QRS Dur : 080 ms QT Int : 352 ms P-R-T Axes : 014 -32 021 degrees QTc Int : 430 ms Normal sinus rhythm Left axis deviation Inferior infarct , age undetermined Anterolateral infarct , age undetermined Abnormal ECG Confirmed by HONORIO MONTANEZ, RACHELE ([id number]), editor sound NASREEN BRODY ([id number]) on 07/25/2018 3:20:32 PM Referred By: Lawson Biggs Confirmed By:RACHELE OLMEDO MD
[2018-07-21 13:18] LABS: Absolute Lymphocyte Count 0.68 X10^3/ul (0.83-4.51); Absolute Neutrophil Count 4.1 X10^3/uL (2.0-7.7); Basophil# 0.06 X10^3/uL; Basophil% 1.1 % (0-1); Eosinophil# 0.18 X10^3/uL; Eosinophils% 3.2 % (0-5); Hemoglobin 7.5 g/dl (12.0-15.0); Lymphocyte # 0.68 X10^3/ul (4.0); Lymphocyte % 12.3 % (19-41); Mean Corp Hgb Conc 28.8 g/gl (32-36); Mean Corpuscular Hgb 24.8 pg (27.0-32.0); Mean Corpuscular Volume 86.1 fL (81-99); Mean Platelet Vol. 8.6 fl (6.2-12.0); Monocyte# 0.53 X10^3/uL; Monocyte% 9.5 % (0-10); Neutrophil # 4.08 X10^3/uL (2.7-7.7); Neutrophil % 73.5 % (47-70); POSITIVE COUNT NO; POSITIVE DIFFERENTIAL NO; POSITIVE MORPHOLOGY NO; Platelet Count 288 K/mm3 (150-450); RBC Distribution Width CV 18.6 % (11.6-14.6); RBC Distribution Width SD 56.7 fl (35.1-43.9); Red Blood Count 3.02 M/mm3 (4.2-5.4); White Blood Count 5.6 K/mm3 (4.4-11.0)
[2018-07-21] MEDS: 0.9% Normal Saline 1,000 ML 150 ML IV (13:23)
[2018-07-21 13:35] LABS: Anion Gap 7 (5-15); BUN 16 mg/dL (7-18); Calcium,Total 8.9 mg/dL (8.5-10.1); Chloride 111 mmol/L (98-107); Creatinine, Serum 1.46 mg/dL (0.55-1.02); EST Glomerular Filtration Rate 36 mL/min (>60); Est Glom Filt Rate - Afr Amer 44 mL/min (>60); Estimated Creatinine Clearance 38.29 ml/min; Glucose 105 mg/dL (74-106); Potassium 4.4 mmol/L (3.5-5.1); Sodium Level 144 mmol/L (136-145)
[2018-07-21 15:02] LABS: Bacteria 0 SEEN /hpf (None Seen); Mucous, Urine 0 SEEN /hpf (<or=2+); Red Blood Cells-Urine 0 SEEN /hpf (0-5)
[2018-07-21 15:04] LABS: Color, Urine Yellow (Yellow); Glucose, Dipstick Normal (Normal); Ketone-Dipstick Negative (Negative); Leukocyte Esterase-Dipstick 25 /ul (Negative); Nitrite-Dipstick Negative (Negative); Occult Blood-Urine Negative /ul (Negative); Protein-Dipstick Negative (Negative); Specific Gravity, Urine 1.015 (1.002-1.030); Urine Bilirubin Dipstick Negative (Negative); Urine Clarity Clear (Clear); Urine Urobilinogen Normal (Normal)
--- NOTE | 2018-07-21 15:09 | ED.VISSUMM ---
- ER Visit Summary Date of Service: 07/21/18 Chief Complaint: [Anemia] History of Present Illness: The patient is a 83 F [presents to the emergency department complaint of abnormal labs. Patient states she was seen by primary care physician yesterday for a sore throat and mild cough and she had some blood work done and she was called today and told to come to the emergency department because she was anemic. Patient states that she has been fatigued and generally feels weak. She feels short of breath with activity and exertion. She denies any chest pain. Patient does have a history of anemia in a couple months ago apparently she had to have 2 units of packed red blood cells. Patient states that she has had within the last year colonoscopy in endoscopy but she cannot remember who performed the studies. Patient does have a history of peptic ulcer disease and GERD.] Physical Examination: [HEENT-PERRLA, EOMI. Cranial nerves II through XII grossly intact. TMs clear. Mucous membranes moist. No adenopathy. Cardiovascular-regular rate and rhythm without murmur or ectopy Lungs-clear to auscultation, chest wall stable without crepitus or subcu emphysema Abdomen-normoactive bowel sounds, soft, nontender, no rebound or rigidity, no peritoneal signs. Rectal exam-brown stool that was Hemoccult negative. No masses palpated in the rectal vault. Extremities-intact ?4, normal range of motion, normal pulses, atraumatic] Test Results: [CBC with differential obtained showed a white count of 5.6, hemoglobin 7.5, hematocrit 26, platelet 288. Chemistries unremarkable. BUN was 16 and creatinine 1.46. Troponin is less than 0.015. 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 It may contain incorrect words, spelling, and punctuation that were not noted in review of the chart prior to signing ED Disposition - Plan for ED Patient: Chief Complaint: Abn Labs Referrals: Candice Amado DO [Primary Care Provider] -
--- NOTE | 2018-07-21 15:27 | NURSING ---
PCU GI BLEED MARY
--- NOTE | 2018-07-21 15:29 | PCM.HP.STD ---
<Yemi Silva - Last Filed: 07/21/18 15:29> Problem List (1) Anemia Status: Acute (2) Rheumatoid arthritis Status: Chronic (3) Migraine Status: Chronic (4) Asthma Status: Chronic (5) Hiatal hernia Status: Chronic (6) Spondylosis of lumbar region without myelopathy or radiculopathy Status: Chronic History of Present Illness Date of Admission: 07/21/18 Chief Complaint: weakness The patient is a 83 year old F with a pmhx of RA, iron deficiency anemia, hiatal hernia, chronic back pain, migraines, asthma, LE DVT previously on OAC, who presents to the ER after being sent by her PCP for anemia. She presented to her PCP with c/o cough. She has been severely weak and dyspneic with exertion. She also complains of BL LE swelling and pain. She was found to have hgb 7.5 and sent to the ER. She had mild RLQ abdominal pain 2 days ago. She had diarrhea earlier this week that were dark. She does take iron. She thinks she had a colonoscopy about a year ago but cannot remember who did it and cannot remember what she had. She has had an Upper endoscopy but cant remember when, but does know that this showed a hiatal hernia. She does not take NSAIDS. [] Past Medical History Past Medical History (Chronic Problems): Chronic Problems Rheumatoid arthritis (Chronic) Migraine (Chronic) Asthma (Chronic) Hiatal hernia (Chronic) Spondylosis of lumbar region without myelopathy or radiculopathy (Chronic) Allergies No Known Allergies Allergy (Verified 07/21/18 12:36) Home Medications: Ambulatory Orders Medication Instructions Recorded Butalb/Acetaminophen/Caffeine 1 each PO Q4H PRN PRN 02/16/14 [Fioricet 50-300-40 mg Capsule] Diphenoxylate HCl/Atropine 2.5 mg PO TID PRN PRN 02/16/14 [Lomotil 2.5-0.025 mg Tablet] Duloxetine Hcl [Cymbalta] 60 mg PO DAILY 02/16/14 Zolpidem Tartrate [Ambien] 10 mg PO QHS PRN PRN 02/16/14 Atenolol [Tenormin (beta Kate)] 25 mg PO BID 06/09/15 Hydroxychloroquine [Plaquenil] 200 mg PO DAILY 06/09/15 Ropinirole HCl [Requip] 0.5 mg PO QHS 06/09/15 Sumatriptan Succinate [Imitrex] 100 mg PO .X1 PRN MDD MIGRAINE 06/09/15 Gabapentin [Neurontin] 200 mg PO DAILY 09/20/16 Gabapentin [Neurontin] 300 mg PO QHS 09/20/16 Iron Carbonyl [Feosol] 65 mg PO BID 04/19/17 Lidocaine/Transparent Dressing 1 each TP BID PRN 04/19/17 [Lidocaine 4% Kit] Prednisone 10 mg PO PRN PRN 04/19/17 Multivitamins,Therapeutic 1 tablet PO DAILY 01/29/18 [Multivitamin] Hydrocodone/Acetaminophen [[place] 1 each PO BID PRN PRN 03/09/18 5-325 Tablet] Cholecalciferol (VIT D3) [Vitamin 1,000 unit PO DAILY 07/21/18 D] Folic Acid 0.4 mg PO DAILY@0800 07/21/18 Furosemide [Lasix] 20 mg PO DAILY PRN PRN 07/21/18 Pantoprazole Sodium [Protonix] 40 mg PO DAILY 07/21/18 buPROPion XL [Wellbutrin Xl] 150 mg PO DAILY 07/21/18 Surgical History: appendectomy, hysterectomy, tonsillectomy, - - back surgery, carpal tunnel tarsal tunnel Psychiatric History: No pertinent psych hx [employer]ANG[employer]AGES History: No pertinent [employer] history Lives: With Family Smoking Status: Never smoker Tobacco Use: Non-smoker Alcohol: None Drugs: None - *Family History Maternal History Items: Heart Disease Paternal History Items: No pertinent history Review of Systems Constitutional: Denies: Chills, Fever, Weight Change HEENT: Denies: Head Aches, Sinus Congestion, Sinus Drainage Cardiovascular: Denies: Chest Pain, Palpitations Respiratory: Denies: Cough, Shortness of breath at rest, Sputum production Gastrointestinal: Denies: Abdominal Pain, Nausea, Vomiting Genitourinary: Denies: Dysuria Musculoskeletal: Denies: Joint Pain, Joint Tenderness Skin: Denies: Rash, Wounds Neurological: Denies: Numbness, Tingling, Focal weakness Psychiatric: Denies: Anxiety, Depression, Homicidal Ideations, Suicidal Ideations Hematologic/ Lymphatic: Denies: Easy Bruising, Easy Bleeding VTE Information - Inpt Only VTE Present on Admission: No VTE Mechan Device Prophylaxis: SCD's, None VTE Pharm Prophylaxis ordered?: No Patient Problems: Active and Suspected Problems Anemia (Acute) - Physical Exam General: Alert, Oriented x3, Cooperative HEENT: Atraumatic, PERRLA, EOMI, Normocephalic Neck: Supple, No JVD, Negative Carotid Bruits Lungs: Clear to auscultation, Normal air movement Cardiovascular: Regular rate, No murmurs Abdomen: Bowel Sounds Present, Soft, Non Tender Extremities: Capillary Refill Less than 3 Seconds, Edema, - - + gualberto sign BL Skin: No rashes, No breakdown Musculoskeletal: No Tenderness to Palpation of Joints or Extremities Neurological: Cranial nerves II-XII grossly intact Psych/Mental Status: Normal Affect, Appropriate, Alert and oriented to time, place, person, mood and affect Vital Signs Temp Pulse Resp BP Pulse Ox 98.3 F 81 18 145/70 H 100 07/21/18 12:34 07/21/18 14:45 07/21/18 14:45 07/21/18 14:45 07/21/18 12:34 Oxygen Delivery Method Room Air Weight: 180 lb Body Mass Index (BMI) 37.6 Microbiology Past 72 Hours 07/21/18 14:30 Stool Occult Blood (WILLIE) - Final Stool Laboratory Tests Past 24 Hrs 07/21/18 07/21/18 07/21/18 13:05 13:05 13:05 WBC 5.6 RBC 3.02 L Hgb 7.5 L Hct 26.0 L MCV 86.1 MCH 24.8 L MCHC 28.8 L RDW 18.6 H RDW Differential 56.7 H Plt Count 288 MPV 8.6 Immature Gran % (Auto) 0.400 Neut % (Auto) 73.5 H Lymph % (Auto) 12.3 L [place] % (Auto) 9.5 Eos % (Auto) 3.2 Baso % (Auto) 1.1 H Absolute Neuts (auto) 4.1 Absolute Lymphs (auto) 0.68 L Total Counted Not Reportable Sodium 144 Potassium 4.4 Chloride 111 H Carbon Dioxide 26.0 Anion Gap 7 BUN 16 Creatinine 1.46 H Estim Creat Clear Calc 38.29 Est GFR (MDRD) Af Amer 44 L Est GFR (MDRD) Non-Af 36 L BUN/Creatinine Ratio 11.0 Glucose 105 Calcium 8.9 Troponin I < 0.015 Urine Color Urine Clarity Urine pH Ur Specific [place] Urine Protein Urine Glucose (UA) Urine Ketones Urine Occult Blood Urine Nitrite Urine Bilirubin Urine Urobilinogen Ur Leukocyte Esterase Urine RBC Urine WBC Ur Squamous Epith Cells Urine Bacteria Urine Mucus Blood Type A POSITIVE Antibody Screen NEGATIVE 07/21/18 14:50 WBC RBC Hgb Hct MCV MCH MCHC RDW RDW Differential Plt Count MPV Immature Gran % (Auto) Neut % (Auto) Lymph % (Auto) [place] % (Auto) Eos % (Auto) Baso % (Auto) Absolute Neuts (auto) Absolute Lymphs (auto) Total Counted Sodium Potassium Chloride Carbon Dioxide Anion Gap BUN Creatinine Estim Creat Clear Calc Est GFR (MDRD) Af Amer Est GFR (MDRD) Non-Af BUN/Creatinine Ratio Glucose Calcium Troponin I Urine Color Pending Urine Clarity Pending Urine pH Pending Ur Specific [place] Pending Urine Protein Pending Urine Glucose (UA) Pending Urine Ketones Pending Urine Occult Blood Pending Urine Nitrite Pending Urine Bilirubin Pending Urine Urobilinogen Pending Ur Leukocyte Esterase Pending Urine RBC Pending Urine WBC Pending Ur Squamous Epith Cells Pending Urine Bacteria Pending Urine Mucus Pending Blood Type Antibody Screen Assessment/Plan All Active Problems Anemia (Acute) 1. Acute anemia of unclear etiology, concern for GI bleed with black stools. Symptomatic with worsening weakness and SOB with exertion. However Hemoccult negative. Not on blood thinning agents. Not on NSAIDs. Consult to surgery. Trend H/H. Hx iron deficiency. Continue PO iron. Check iron panels. Hx RA as well. Start PPI PO BID. Trop neg. Pt does not remember when or who did last upper/lower scopes. Hx Hiatal hernia. 2. Hx DVT in LE - not on OAC. Worsening LE edema. Check LE Duplex. 3. Hx Hiatal hernia per last EGD, when is unclear. Takes nexium outpatient. 4. Hx migraines - prn fioricet, imitrex. currently no GRACIA. 5. Hx of RA - pt of Dr. Booker. Conitnue Plaquenil, prednisone. 6. Chronic back pain - continue home meds. 7. Possible underlying CKD, mildly elevated creatinine, will trend, possibly somewhat elevated with worsening anemia. DVT ppx: SCDs DC planning: PTOT, increasing weakness. This patient was seen by Yemi Silva PA-C under the supervision of Dr. Biggs <Julianne Jefferson - Last Filed: 07/22/18 08:09> History of Present Illness The patient is a 83 year old F [] Past Medical History Allergies No Known Allergies Allergy (Verified 07/21/18 12:36) - Physical Exam Vital Signs Temp Pulse Resp BP Pulse Ox 98.3 F 71 20 H 138/87 H 100 07/22/18 03:59 07/22/18 03:59 07/22/18 03:59 07/22/18 03:59 07/22/18 03:59 Oxygen Flow Rate (L/min) 2 Oxygen Delivery Method Nasal Cannula Weight: 89.1 kg Body Mass Index (BMI) 39.6 Intake and Output for Last 24 Hours 07/20/18 07/21/18 07/22/18 23:59 23:59 23:59 Intake Total 544 / 544 365 / 365 Output Total 300 / 300 550 / 550 Balance 244 / 244 -185 / -185 Microbiology Past 72 Hours 07/21/18 14:30 Stool Occult Blood (WILLIE) - Final Stool Laboratory Tests Past 24 Hrs 07/21/18 07/21/18 07/21/18 13:05 13:05 13:05 WBC 5.6 RBC 3.02 L Hgb 7.5 L Hct 26.0 L MCV 86.1 MCH 24.8 L MCHC 28.8 L RDW 18.6 H RDW Differential 56.7 H Plt Count 288 MPV 8.6 Immature Gran % (Auto) 0.400 Neut % (Auto) 73.5 H Lymph % (Auto) 12.3 L [place] % (Auto) 9.5 Eos % (Auto) 3.2 Baso % (Auto) 1.1 H Absolute Neuts (auto) 4.1 Absolute Lymphs (auto) 0.68 L Total Counted Not Reportable Sodium 144 Potassium 4.4 Chloride 111 H Carbon Dioxide 26.0 Anion Gap 7 BUN 16 Creatinine 1.46 H Estim Creat Clear Calc 38.29 Est GFR (MDRD) Af Amer 44 L Est GFR (MDRD) Non-Af 36 L BUN/Creatinine Ratio 11.0 Glucose 105 Calcium 8.9 Iron TIBC Iron Saturation Ferritin Troponin I < 0.015 Urine Color Urine Clarity Urine pH Ur Specific [place] Urine Protein Urine Glucose (UA) Urine Ketones Urine Occult Blood Urine Nitrite Urine Bilirubin Urine Urobilinogen Ur Leukocyte Esterase Urine RBC Urine WBC Ur Squamous Epith Cells Urine Bacteria Hyaline Casts Urine Mucus Blood Type A POSITIVE Antibody Screen NEGATIVE Crossmatch 07/21/18 07/21/18 07/21/18 13:05 13:05 14:50 WBC RBC Hgb Hct MCV MCH MCHC RDW RDW Differential Plt Count MPV Immature Gran % (Auto) Neut % (Auto) Lymph % (Auto) [place] % (Auto) Eos % (Auto) Baso % (Auto) Absolute Neuts (auto) Absolute Lymphs (auto) Total Counted Sodium Potassium Chloride Carbon Dioxide Anion Gap BUN Creatinine Estim Creat Clear Calc Est GFR (MDRD) Af Amer Est GFR (MDRD) Non-Af BUN/Creatinine Ratio Glucose Calcium Iron 16 L TIBC 411 Iron Saturation 3.9 L Ferritin 18 Troponin I Urine Color Yellow Urine Clarity Clear Urine pH 6.0 Ur Specific [place] 1.015 Urine Protein Negative Urine Glucose (UA) Normal Urine Ketones Negative Urine Occult Blood Negative Urine Nitrite Negative Urine Bilirubin Negative Urine Urobilinogen Normal Ur Leukocyte Esterase 25 H Urine RBC 0 SEEN Urine WBC 0-5 SEEN Ur Squamous Epith Cells 0-5 SEEN Urine Bacteria 0 SEEN Hyaline Casts 0-5 SEEN Urine Mucus 0 SEEN Blood Type Antibody Screen Crossmatch See Detail 07/21/18 07/22/18 07/22/18 21:15 05:05 05:05 WBC 5.0 RBC 3.44 L Hgb 6.8 L 8.6 L Hct 23.0 L 29.7 L MCV 86.3 MCH 25.0 L MCHC 29.0 L RDW 18.0 H RDW Differential 54.7 H Plt Count 290 MPV 8.9 Immature Gran % (Auto) 0.200 Neut % (Auto) 54.2 Lymph % (Auto) 21.0 [place] % (Auto) 17.8 H Eos % (Auto) 5.6 H Baso % (Auto) 1.2 H Absolute Neuts (auto) 2.7 Absolute Lymphs (auto) 1.05 Total Counted Not Reportable Sodium 145 Potassium 4.5 Chloride 113 H Carbon Dioxide 25.0 Anion Gap 7 BUN 14 Creatinine 1.40 H Estim Creat Clear Calc 43.58 Est GFR (MDRD) Af Amer 46 L Est GFR (MDRD) Non-Af 38 L BUN/Creatinine Ratio 10.0 Glucose 89 Calcium 8.4 L Iron TIBC Iron Saturation Ferritin Troponin I Urine Color Urine Clarity Urine pH Ur Specific [place] Urine Protein Urine Glucose (UA) Urine Ketones Urine Occult Blood Urine Nitrite Urine Bilirubin Urine Urobilinogen Ur Leukocyte Esterase Urine RBC Urine WBC Ur Squamous Epith Cells Urine Bacteria Hyaline Casts Urine Mucus Blood Type Antibody Screen Crossmatch Assessment/Plan This patient was seen in conjunction with ABBY Siddiqui. I have independently interviewed and examined the patient and reviewed pertinent historical, laboratory, and other data. Please refer to ABBY Siddiqui note for his patient's presentation, findings, and recommendations. I have reviewed and his note and concur with his documentation 83-year-old female with past medical history of iron deficiency anemia, history of DVT, hiatal hernia who is being admitted because of abnormal blood work. Patient had gone to the urgent care 2 days ago with complaints of fatigue, sore throat, shortness of breath. Blood work was taken and patient received a call on the day of admission to come to the emergency department because her hemoglobin was 7.5. Denied any hematochezia or melena or any bleeding from any orifices. She had a colonoscopy about a year ago in the [facility] and this was for iron deficiency anemia. There was no definite source of her bleeding. It was speculated to be related to her hiatal hernia. At the time of being seen, patient denied any complaints except for headache. Denied any dizziness or shortness of breath orthopnea or PND. Admitted to bilateral leg swelling. She has acute on chronic back pain for which she is on Hope at home. Physical Exam: Vitals show temperature of 98.3F, heart rate of 95, blood pressure 141/70, patient was positively orthostatic from lying to sitting. Gen: Morbidly obese, in mild discomfort, pale, not jaundiced CVS:HS I +II, regular, no murmurs RESP: Diminished at lung bases GI: Full, soft nontender, no ballotable organs EXT:bilateral leg edema, worse in the left leg Back: Tenderness over the thoracic and lumbar region. Labs Admitting white cell count was 5.6, hemoglobin 7.5, drop from 10.7 a month ago, platelet count was 288, sodium was 144, potassium 4.4, chloride 111, bicarbonate 26, BUN 16, creatinine 1.46. Patient's iron indices showed iron deficiency anemia Stool for FOBT negative ASSESSMENT: 1. Severe iron deficiency anemia, likely GI loss, general surgery consulted from the ED, Discussed with Dr. Cooper, start patient on clear liquid diet, trend H&H, obtain records from the [facility] Consider CT of the abdomen and pelvis to look for retroperitoneal bleed if patient continues to lose blood 2. History of hiatal hernia 3. Acute on chronic back pain, will continue on oxycodone and Tylenol as needed 4. History of DVT in the lower extremity, not on around 2 coagulants 5. Migraine headache 6. Rheumatoid arthritis on Plaquenil and prednisone 7. CKD stage III Plan: Admit to PCU, trend H&H, transfuse if increased less than 7, general surgery consulted, Obtain records from [facility]. Code Visit Inpatient E&M: 47091 Init Hosp L3
[2018-07-21 15:54] LABS: Squamous Epithelial Cells - UA 0-5 SEEN /hpf (5-10)
[2018-07-21 15:55] LABS: White Blood Cells 0-5 SEEN /hpf (0-5)
[2018-07-21 15:57] LABS: Hyaline Cast 0-5 SEEN /lpf (0-5)
[2018-07-21 17:42] LABS: Ferritin 18 ng/mL (8-252); Iron 16 ug/dL (50-170); Iron Binding Capacity,Total 411 ug/dL (250-450); PERCENT IRON SATURATION 3.9 % (15.0-55.0)
[2018-07-21] MEDS: Acetaminophen 325 MG Tablet 650 MG PO (18:11)
[2018-07-21] MEDS: 0.9% Normal Saline 1,000 ML 75 ML IV (18:11)
[2018-07-21] MEDS: 0.9% NaCl Peripheral Flush Adult/Peds IV (18:11)
[2018-07-21 21:29] LABS: Hemoglobin 6.8 g/dl (12.0-15.0)
[2018-07-21] MEDS: Pramipexole Di-HCl 0.25 MG Tablet PO (23:02)
[2018-07-21] MEDS: Atenolol 25 MG Tablet PO (23:03)
[2018-07-21] MEDS: Gabapentin 300 MG Capsule PO (23:03)
[2018-07-21] MEDS: oxyCODONE 5 MG Tablet PO (23:13)
[2018-07-22] VITALS (14 sets, daily range): BP systolic 111–157; BP diastolic 51–87; PULSE 68–81; RESP 16–20; TEMP 36.7–36.8; O2SAT 94–100
[2018-07-22] MEDS: Furosemide 20 MG/2 ML VIAL IV (04:18)
[2018-07-22 05:46] LABS: Absolute Lymphocyte Count 1.05 X10^3/ul (0.83-4.51); Absolute Neutrophil Count 2.7 X10^3/uL (2.0-7.7); Basophil# 0.06 X10^3/uL; Basophil% 1.2 % (0-1); Eosinophil# 0.28 X10^3/uL; Eosinophils% 5.6 % (0-5); Hematocrit 29.7 % (37-47); Hemoglobin 8.6 g/dl (12.0-15.0); Lymphocyte # 1.05 X10^3/ul (4.0); Mean Corpuscular Volume 86.3 fL (81-99); Mean Platelet Vol. 8.9 fl (6.2-12.0); Monocyte# 0.89 X10^3/uL; Monocyte% 17.8 % (0-10); Neutrophil # 2.72 X10^3/uL (2.7-7.7); Neutrophil % 54.2 % (47-70); Platelet Count 290 K/mm3 (150-450); RBC Distribution Width SD 54.7 fl (35.1-43.9); Red Blood Count 3.44 M/mm3 (4.2-5.4)
[2018-07-22 05:48] LABS: POSITIVE COUNT NO; POSITIVE DIFFERENTIAL NO; POSITIVE MORPHOLOGY NO
[2018-07-22 05:53] LABS: Anion Gap 7 (5-15); BUN 14 mg/dL (7-18); Calcium,Total 8.4 mg/dL (8.5-10.1); Chloride 113 mmol/L (98-107); EST Glomerular Filtration Rate 38 mL/min (>60); Est Glom Filt Rate - Afr Amer 46 mL/min (>60); Estimated Creatinine Clearance 43.58 ml/min; Glucose 89 mg/dL (74-106); Potassium 4.5 mmol/L (3.5-5.1); Sodium Level 145 mmol/L (136-145)
[2018-07-22] MEDS: Folic Acid 1 MG Tablet 0.5 MG PO (07:47)
[2018-07-22] MEDS: Acetaminophen 325 MG Tablet 650 MG PO (07:48)
[2018-07-22] MEDS: Multivitamins,Therapeutic Tablet 1 TABLET PO (09:55)
[2018-07-22] MEDS: Atenolol 25 MG Tablet PO (09:55)
[2018-07-22] MEDS: Gabapentin 100 MG Capsule 200 MG PO (09:55)
[2018-07-22] MEDS: buPROPion (XL) 150 MG TABLET.XL PO (09:55)
[2018-07-22] MEDS: Hydroxychloroquine 200 MG Tablet PO (09:55)
--- NOTE | 2018-07-22 10:03 | CON.PCM_ITS ---
Problem List (1) Anemia Status: Acute Qualifiers: Anemia type: iron deficiency Iron deficiency anemia type: chronic blood loss Qualified Code(s): D50.0 - Iron deficiency anemia secondary to blood loss (chronic) Reason for Consult Date of Consultation: 07/22/18 Reason for Consultation: Iron deficiency anemia History of Present Illness: The patient is a 83 year old F who was admitted to the hospital with shortness of breath and found to be anemic. The patient reports that she is not having any abdominal pain or nausea or vomiting. She is having dark stools but she says she is on an iron supplement. She had an FOBT which was negative. She does not have any gross blood in her stool. She believes she was scoped 1 year ago by the [facility] physicians and it was normal. Past Medical History Past Medical History (Chronic Problems): Chronic Problems Rheumatoid arthritis (Chronic) Migraine (Chronic) Asthma (Chronic) Hiatal hernia (Chronic) Spondylosis of lumbar region without myelopathy or radiculopathy (Chronic) Allergies No Known Allergies Allergy (Verified 07/21/18 12:36) Home Medications: Ambulatory Orders Medication Instructions Recorded Butalb/Acetaminophen/Caffeine 1 each PO Q4H PRN PRN 02/16/14 [Fioricet 50-300-40 mg Capsule] Diphenoxylate HCl/Atropine 2.5 mg PO TID PRN PRN 02/16/14 [Lomotil 2.5-0.025 mg Tablet] Duloxetine Hcl [Cymbalta] 60 mg PO DAILY 02/16/14 Zolpidem Tartrate [Ambien] 10 mg PO QHS PRN PRN 02/16/14 Atenolol [Tenormin (beta Kate)] 25 mg PO BID 06/09/15 Hydroxychloroquine [Plaquenil] 200 mg PO DAILY 06/09/15 Ropinirole HCl [Requip] 0.5 mg PO QHS 06/09/15 Sumatriptan Succinate [Imitrex] 100 mg PO .X1 PRN MDD MIGRAINE 06/09/15 Gabapentin [Neurontin] 200 mg PO DAILY 09/20/16 Gabapentin [Neurontin] 300 mg PO QHS 09/20/16 Iron Carbonyl [Feosol] 65 mg PO BID 04/19/17 Lidocaine/Transparent Dressing 1 each TP BID PRN 09/13/17 [Lidocaine 4% Kit] Prednisone 10 mg PO PRN PRN 04/19/17 Multivitamins,Therapeutic 1 tablet PO DAILY 01/29/18 [Multivitamin] Hydrocodone/Acetaminophen [[place] 1 each PO BID PRN PRN 03/09/18 5-325 Tablet] Cholecalciferol (VIT D3) [Vitamin 1,000 unit PO DAILY 07/21/18 D] Folic Acid 0.4 mg PO DAILY@0800 07/21/18 Furosemide [Lasix] 20 mg PO DAILY PRN PRN 07/21/18 Pantoprazole Sodium [Protonix] 40 mg PO DAILY 07/21/18 buPROPion XL [Wellbutrin Xl] 150 mg PO DAILY 07/21/18 Surgical History: appendectomy, hysterectomy, tonsillectomy, - - back surgery, carpal tunnel tarsal tunnel Psychiatric History: 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 Denies: Abdominal Pain, Nausea, Melena, Vomiting Genitourinary: Denies: Dysuria Musculoskeletal: Denies: Joint Tenderness Skin: Denies: Jaundice Hematologic/ Lymphatic: Reports: Anemia Patient Problems: Active and Suspected Problems Anemia (Acute) - Physical Exam General: Alert, Oriented x3, Cooperative, No apparent distress HEENT: Atraumatic Neck: No JVD Lungs: Normal air movement Cardiovascular: Regular rate, Regular Rhythm Abdomen: Soft, Non Tender, Non-Distended Extremities: No cyanosis Skin: No rashes Musculoskeletal: No Muscle Wasting Neurological: Cranial nerves II-XII grossly intact Psych/Mental Status: Normal Affect, Appropriate Vital Signs Temp Pulse Resp BP Pulse Ox 98.3 F 69 20 H 138/87 H 100 07/22/18 03:59 07/22/18 07:06 07/22/18 03:59 07/22/18 03:59 07/22/18 03:59 Oxygen Flow Rate (L/min) 2 Oxygen Delivery Method Nasal Cannula Weight: 196 lb 6.91 oz Body Mass Index (BMI) 39.6 Intake and Output for Last 24 Hours 07/20/18 07/21/18 07/22/18 23:59 23:59 23:59 Intake Total 544 / 544 365 / 365 Output Total 300 / 300 550 / 550 Balance 244 / 244 -185 / -185 Microbiology Past 72 Hours 07/21/18 14:30 Stool Occult Blood (WILLIE) - Final Stool Laboratory Tests Past 24 Hrs 07/21/18 07/21/18 07/21/18 13:05 13:05 13:05 WBC 5.6 RBC 3.02 L Hgb 7.5 L Hct 26.0 L MCV 86.1 MCH 24.8 L MCHC 28.8 L RDW 18.6 H RDW Differential 56.7 H Plt Count 288 MPV 8.6 Immature Gran % (Auto) 0.400 Neut % (Auto) 73.5 H Lymph % (Auto) 12.3 L [place] % (Auto) 9.5 Eos % (Auto) 3.2 Baso % (Auto) 1.1 H Absolute Neuts (auto) 4.1 Absolute Lymphs (auto) 0.68 L Total Counted Not Reportable Sodium 144 Potassium 4.4 Chloride 111 H Carbon Dioxide 26.0 Anion Gap 7 BUN 16 Creatinine 1.46 H Estim Creat Clear Calc 38.29 Est GFR (MDRD) Af Amer 44 L Est GFR (MDRD) Non-Af 36 L BUN/Creatinine Ratio 11.0 Glucose 105 Calcium 8.9 Iron TIBC Iron Saturation Ferritin Troponin I < 0.015 Urine Color Urine Clarity Urine pH Ur Specific [place] Urine Protein Urine Glucose (UA) Urine Ketones Urine Occult Blood Urine Nitrite Urine Bilirubin Urine Urobilinogen Ur Leukocyte Esterase Urine RBC Urine WBC Ur Squamous Epith Cells Urine Bacteria Hyaline Casts Urine Mucus Blood Type A POSITIVE Antibody Screen NEGATIVE Crossmatch 07/21/18 07/21/18 07/21/18 13:05 13:05 14:50 WBC RBC Hgb Hct MCV MCH MCHC RDW RDW Differential Plt Count MPV Immature Gran % (Auto) Neut % (Auto) Lymph % (Auto) [place] % (Auto) Eos % (Auto) Baso % (Auto) Absolute Neuts (auto) Absolute Lymphs (auto) Total Counted Sodium Potassium Chloride Carbon Dioxide Anion Gap BUN Creatinine Estim Creat Clear Calc Est GFR (MDRD) Af Amer Est GFR (MDRD) Non-Af BUN/Creatinine Ratio Glucose Calcium Iron 16 L TIBC 411 Iron Saturation 3.9 L Ferritin 18 Troponin I Urine Color Yellow Urine Clarity Clear Urine pH 6.0 Ur Specific [place] 1.015 Urine Protein Negative Urine Glucose (UA) Normal Urine Ketones Negative Urine Occult Blood Negative Urine Nitrite Negative Urine Bilirubin Negative Urine Urobilinogen Normal Ur Leukocyte Esterase 25 H Urine RBC 0 SEEN Urine WBC 0-5 SEEN Ur Squamous Epith Cells 0-5 SEEN Urine Bacteria 0 SEEN Hyaline Casts 0-5 SEEN Urine Mucus 0 SEEN Blood Type Antibody Screen Crossmatch See Detail 07/21/18 07/22/18 07/22/18 21:15 05:05 05:05 WBC 5.0 RBC 3.44 L Hgb 6.8 L 8.6 L Hct 23.0 L 29.7 L MCV 86.3 MCH 25.0 L MCHC 29.0 L RDW 18.0 H RDW Differential 54.7 H Plt Count 290 MPV 8.9 Immature Gran % (Auto) 0.200 Neut % (Auto) 54.2 Lymph % (Auto) 21.0 [place] % (Auto) 17.8 H Eos % (Auto) 5.6 H Baso % (Auto) 1.2 H Absolute Neuts (auto) 2.7 Absolute Lymphs (auto) 1.05 Total Counted Not Reportable Sodium 145 Potassium 4.5 Chloride 113 H Carbon Dioxide 25.0 Anion Gap 7 BUN 14 Creatinine 1.40 H Estim Creat Clear Calc 43.58 Est GFR (MDRD) Af Amer 46 L Est GFR (MDRD) Non-Af 38 L BUN/Creatinine Ratio 10.0 Glucose 89 Calcium 8.4 L Iron TIBC Iron Saturation Ferritin Troponin I Urine Color Urine Clarity Urine pH Ur Specific [place] Urine Protein Urine Glucose (UA) Urine Ketones Urine Occult Blood Urine Nitrite Urine Bilirubin Urine Urobilinogen Ur Leukocyte Esterase Urine RBC Urine WBC Ur Squamous Epith Cells Urine Bacteria Hyaline Casts Urine Mucus Blood Type Antibody Screen Crossmatch Assessment/Plan All Active Problems Anemia (Acute) 83-year-old female with anemia 1. The patient is having iron deficiency anemia but she is taking iron supplements which may be making her stools dark. She also is on chronic prednisone which may be causing gastritis. She has been started on a PPI in house and I would recommend continuing this on discharge. 2. The patient feels better after her transfusion. She is not having any active large amounts of blood loss. I will have my office call her this week a nd schedule her for an outpatient EGD and colonoscopy. The patient may start on a regular diet and be discharged when she is okay from a medical standpoint. Please continue PPI on discharge. Nnamdi Cooper MD Pager: [facility] [address] [place] [address], [address] [place] [address] Office:
[2018-07-22 11:17] LABS: International Normalized Ratio 1.1; Prothrombin Time (Protime)PT. 13.8 SECONDS (11.7-14.9)
[2018-07-22 13:43] LABS: Hematocrit 31.6 % (37-47); Hemoglobin 9.3 g/dl (12.0-15.0)
--- NOTE | 2018-07-22 14:10 | PCM.DC ---
- Discharge Diagnoses Current Active Problems: Current Active and Chronic Problems Anemia (Acute) Rheumatoid arthritis (Chronic) Migraine (Chronic) Asthma (Chronic) Hiatal hernia (Chronic) You will use the following diet at home:: Regular Your food should be the consistency of: Regular Discharge Activity: Return to Normal Activity Weight Bearing Status: Weight bearing as tolerated Call your doctor if you observe: Fever of 101 or Higher, Shortness of breath, Dizziness, Fainting spells, Chest pain, Increased palpitations (irregular heartbeat), Uncontrolled pain Additional Instructions: Please have a blood work done at your PCPs office in a week and require your PCP about referral to GI for possible capsule endoscopy. Allergies/Adverse Reactions: Allergies No Known Allergies Allergy (Verified 07/21/18 12:36) Medications to take at Discharge Butalb/Acetaminophen/Caffeine [Fioricet 50-300-40 mg Capsule] 1 each PO Q4H PRN PRN 02/16/14 Diphenoxylate HCl/Atropine [Lomotil 2.5-0.025 mg Tablet] 2.5 mg PO TID PRN PRN 02/16/14 Duloxetine Hcl [Cymbalta] 60 mg PO DAILY 02/16/14 Atenolol [Tenormin (beta tyler)] 25 mg PO BID 06/09/15 Hydroxychloroquine [Plaquenil] 200 mg PO DAILY 06/09/15 Ropinirole HCl [Requip] 0.5 mg PO QHS 06/09/15 Sumatriptan Succinate [Imitrex] 100 mg PO .X1 PRN MDD MIGRAINE 06/09/15 Gabapentin [Neurontin] 200 mg PO DAILY 09/20/16 Gabapentin [Neurontin] 300 mg PO QHS 09/20/16 Iron Carbonyl [Feosol] 65 mg PO BID 04/19/17 Lidocaine/Transparent Dressing [Lidocaine 4% Kit] 1 each TP BID PRN 04/19/17 Prednisone 10 mg PO PRN PRN 04/19/17 Multivitamins,Therapeutic [Multivitamin] 1 tablet PO DAILY 01/29/18 Hydrocodone/Acetaminophen [[place] 5-325 Tablet] 1 each PO BID PRN PRN 03/09/18 Cholecalciferol (VIT D3) [Vitamin D3] 1,000 unit PO DAILY 07/21/18 Folic Acid 0.4 mg PO DAILY@0800 07/21/18 Furosemide [Lasix] 20 mg PO DAILY PRN PRN 07/21/18 Pantoprazole Sodium [Protonix] 40 mg PO DAILY 07/21/18 buPROPion XL [Wellbutrin Xl] 150 mg PO DAILY 07/21/18 Primary Care Physician: Cnadice Amado DO [Primary Care Provider] - Please follow up with your Primary Care Physician in: 1 week. Test Results: Test results from this visit will be discussed in further detail at your follow-up appointment, if applicable.
--- NOTE | 2018-07-22 14:18 | DS.PCM_ITS ---
Discharge Date and Diagnosis - Problem List Patient Problems: Active and Suspected Problems Anemia (Acute) Date of Admission: 07/21/18 Date of Discharge: 07/22/18 - Primary Discharge Diagnosis Active and Suspected Problems Acute on chronic symptomatic iron deficiency anemia, upper EGD and colonoscopy were negative for active GI bleed. - Secondary Discharge Diagnosis Chronic Problems Rheumatoid arthritis (Chronic) Migraine (Chronic) Asthma (Chronic) Hiatal hernia (Chronic) Spondylosis of lumbar region without myelopathy or radiculopathy (Chronic) Hospital Course and Treatment Dr. Perez, general surgery. Operations: None Procedures: Blood transfusion Summary of Care Provided: Patient seen and examined on the day of discharge and appeared to be stable to be discharged home. She denied any more dizziness, shortness of breath or weakness. She felt better. She continued to deny any bleeding from body orifices, no hematemesis, hematochezia. Her stool was negative for occult blood. Her vital signs are stable. The patient is a 83 year old F admitted because of weakness, fatigue and exertional shortness of breath and she was found to have acute on chronic iron deficiency anemia., Denied epistaxis, hemoptysis, hematemesis, hematochezia, hematuria and reported dark stools but she has been on iron supplement. Her stool was negative for occult blood. Her hemoglobin was as low as 6.8 g/dL. She received 1 unit of packed RBCs and her hemoglobin went up to 9.3 g/dL upon discharge. Her platelet count was normal. Her pro time and INR was normal. Patient had extensive workup in the past with upper EGD and colonoscopy for anemia and that revealed no evidence of GI bleed. Most recent upper EGD and coloscopy was from September, and that was done at [facility]. Upper EGD at that time revealed erosive gastritis without evidence of active bleeding and gastric biopsy was negative for H. pylori. Colonoscopy revealed diverticulosis and colonic polyps that was removed and again without evidence of active bleeding. Apparently, patient was recommended to have capsule endoscopy by the GI doctor who performed the endoscopy on September,. After blood transfusion, patient symptoms of weakness and exertional shortness of breath improved. Her symptoms improved drastically and this was not expected. Her hemoglobin improved dramatically, went up from 6.8 g/dL to 9.3 g/dL with only 1 unit of packed RBCs transfusion. She remained stable without evidence of bleeding. Her vital signs remained stable. Repeat hemoglobin and hematocrit after blood transfusion today revealed hemoglobin of 9.3 g/dL. Patient discharged home in a stable medical condition, continued on PPI and iron supplement, recommended to follow-up with PCP in 1 week, have CBC done in a week to check her hemoglobin and hematocrit, I would recommend referring patient to GI for capsule endoscopy as outpatient. Dr. perez evaluated the patient this admission and recommended upper EGD and colonoscopy as outpatient. At this time, I am not sure if the repeat upper endoscopy and colonoscopy in the near future would be of any benefit to the patient as she had upper endoscopy and colonoscopy on September,. Patient Problems: Active and Suspected Problems Anemia (Acute) - Physical Exam General: Alert, Oriented x3, Cooperative, No apparent distress HEENT: Atraumatic, PERRLA, EOMI, Normocephalic Oral: Moist Mucosa, No Gingival or Mucosal Lesions/ Ulcerations Neck: Supple, No JVD, Negative Carotid Bruits, Trachea Midline, Thyroid Normal Size and Texture Lungs: Clear to auscultation, Normal air movement, No rhonchi, No wheeze, No rales Cardiovascular: Regular rate, Regular Rhythm, Normal S1, Normal S2, PMI Normal Abdomen: Bowel Sounds Present, Soft, Non Tender, Non-Distended, No Hepato-sp lenomegaly Extremities: No clubbing, No cyanosis, No edema Skin: No rashes, No breakdown Lymphatic: No Cervical, Supraclavicular, or Inguinal Adenopathy Neurological: Cranial nerves II-XII grossly intact, Neuro grossly intact Psych/Mental Status: Normal Affect, Appropriate Vital Signs Temp Pulse Resp BP Pulse Ox 98.3 F 71 18 152/77 H 97 07/22/18 09:55 07/22/18 11:05 07/22/18 09:55 07/22/18 09:55 07/22/18 12:13 Oxygen Flow Rate (L/min) 2 Oxygen Delivery Method Room Air Weight: 196 lb 6.91 oz Body Mass Index (BMI) 39.6 Intake and Output for Last 24 Hours 07/20/18 07/21/18 07/22/18 23:59 23:59 23:59 Intake Total 544 / 544 941 / 941 Output Total 300 / 300 550 / 550 Balance 244 / 244 391 / 391 Microbiology Past 72 Hours 07/21/18 14:30 Stool Occult Blood (WILLIE) - Final Stool Laboratory Tests Past 24 Hrs 07/21/18 07/21/18 07/21/18 13:05 13:05 14:50 WBC RBC Hgb Hct MCV MCH MCHC RDW RDW Differential Plt Count MPV Immature Gran % (Auto) Neut % (Auto) Lymph % (Auto) [place] % (Auto) Eos % (Auto) Baso % (Auto) Absolute Neuts (auto) Absolute Lymphs (auto) Total Counted PT INR Sodium Potassium Chloride Carbon Dioxide Anion Gap BUN Creatinine Estim Creat Clear Calc Est GFR (MDRD) Af Amer Est GFR (MDRD) Non-Af BUN/Creatinine Ratio Glucose Calcium Iron 16 L TIBC 411 Iron Saturation 3.9 L Ferritin 18 Urine Color Yellow Urine Clarity Clear Urine pH 6.0 Ur Specific [place] 1.015 Urine Protein Negative Urine Glucose (UA) Normal Urine Ketones Negative Urine Occult Blood Negative Urine Nitrite Negative Urine Bilirubin Negative Urine Urobilinogen Normal Ur Leukocyte Esterase 25 H Urine RBC 0 SEEN Urine WBC 0-5 SEEN Ur Squamous Epith Cells 0-5 SEEN Urine Bacteria 0 SEEN Hyaline Casts 0-5 SEEN Urine Mucus 0 SEEN Crossmatch See Detail 07/21/18 07/22/18 07/22/18 21:15 05:05 05:05 WBC 5.0 RBC 3.44 L Hgb 6.8 L 8.6 L Hct 23.0 L 29.7 L MCV 86.3 MCH 25.0 L MCHC 29.0 L RDW 18.0 H RDW Differential 54.7 H Plt Count 290 MPV 8.9 Immature Gran % (Auto) 0.200 Neut % (Auto) 54.2 Lymph % (Auto) 21.0 Reynolds % (Auto) 17.8 H Eos % (Auto) 5.6 H Baso % (Auto) 1.2 H Absolute Neuts (auto) 2.7 Absolute Lymphs (auto) 1.05 Total Counted Not Reportable PT INR Sodium 145 Potassium 4.5 Chloride 113 H Carbon Dioxide 25.0 Anion Gap 7 BUN 14 Creatinine 1.40 H Estim Creat Clear Calc 43.58 Est GFR (MDRD) Af Amer 46 L Est GFR (MDRD) Non-Af 38 L BUN/Creatinine Ratio 10.0 Glucose 89 Calcium 8.4 L Iron TIBC Iron Saturation Ferritin Urine Color Urine Clarity Urine pH Ur Specific [place] Urine Protein Urine Glucose (UA) Urine Ketones Urine Occult Blood Urine Nitrite Urine Bilirubin Urine Urobilinogen Ur Leukocyte Esterase Urine RBC Urine WBC Ur Squamous Epith Cells Urine Bacteria Hyaline Casts Urine Mucus Crossmatch 07/22/18 07/22/18 11:00 13:30 WBC RBC Hgb 9.3 L Hct 31.6 L MCV MCH MCHC RDW RDW Differential Plt Count MPV Immature Gran % (Auto) Neut % (Auto) Lymph % (Auto) [place] % (Auto) Eos % (Auto) Baso % (Auto) Absolute Neuts (auto) Absolute Lymphs (auto) Total Counted PT 13.8 INR 1.1 Sodium Potassium Chloride Carbon Dioxide Anion Gap BUN Creatinine Estim Creat Clear Calc Est GFR (MDRD) Af Amer Est GFR (MDRD) Non-Af BUN/Creatinine Ratio Glucose Calcium Iron TIBC Iron Saturation Ferritin Urine Color Urine Clarity Urine pH Ur Specific [place] Urine Protein Urine Glucose (UA) Urine Ketones Urine Occult Blood Urine Nitrite Urine Bilirubin Urine Urobilinogen Ur Leukocyte Esterase Urine RBC Urine WBC Ur Squamous Epith Cells Urine Bacteria Hyaline Casts Urine Mucus Crossmatch Discharge Activity: Return to Normal Activity Weight Bearing Status: Weight bearing as tolerated Call your doctor if you observe: Fever of 101 or Higher, Shortness of breath, Dizziness, Fainting spells, Chest pain, Increased palpitations (irregular heartbeat), Uncontrolled pain Home Medications: Medications to take at Discharge Butalb/Acetaminophen/Caffeine [Fioricet 50-300-40 mg Capsule] 1 each PO Q4H PRN PRN 02/16/14 Diphenoxylate HCl/Atropine [Lomotil 2.5-0.025 mg Tablet] 2.5 mg PO TID PRN PRN 02/16/14 Duloxetine Hcl [Cymbalta] 60 mg PO DAILY 02/16/14 Atenolol [Tenormin (beta tyler)] 25 mg PO BID 06/09/15 Hydroxychloroquine [Plaquenil] 200 mg PO DAILY 06/09/15 Ropinirole HCl [Requip] 0.5 mg PO QHS 06/09/15 Sumatriptan Succinate [Imitrex] 100 mg PO .X1 PRN MDD MIGRAINE 06/09/15 Gabapentin [Neurontin] 200 mg PO DAILY 09/20/16 Gabapentin [Neurontin] 300 mg PO QHS 09/20/16 Iron Carbonyl [Feosol] 65 mg PO BID 04/19/17 Lidocaine/Transparent Dressing [Lidocaine 4% Kit] 1 each TP BID PRN 04/19/17 Prednisone 10 mg PO PRN PRN 04/19/17 Multivitamins,Therapeutic [Multivitamin] 1 tablet PO DAILY 01/29/18 Hydrocodone/Acetaminophen [[place] 5-325 Tablet] 1 each PO BID PRN PRN 03/09/18 Cholecalciferol (VIT D3) [Vitamin D3] 1,000 unit PO DAILY 07/21/18 Folic Acid 0.4 mg PO DAILY@0800 07/21/18 Furosemide [Lasix] 20 mg PO DAILY PRN PRN 07/21/18 Pantoprazole Sodium [Protonix] 40 mg PO DAILY 07/21/18 buPROPion XL [Wellbutrin Xl] 150 mg PO DAILY 07/21/18 Primary Care Physician: Candice Amado DO [Primary Care Provider] - Please follow up with your Primary Care Physician in: 1 week. Disposition: Home Minutes spent on discharge:: 26 Patient Condition:: Stable Medical Necessity - Tobacco Use Smoking Status: Never smoker Tobacco Use: Non-smoker Meaningful Use Info Meaningful Use Diagnoses (Choose all that apply): None applicable Code Visit Inpatient E&M: 35708 Disch Hosp
--- NOTE | 2018-07-23 14:29 | CASEMGMT ---
RN CM Discharge Follow-up Phone Call: NATASHA: Henrry Strata: 3 Call Date: 07/23/18 Discharge Date: 07/22/18 Time of Call: [id number] Duration: 0 ? Admitting Diagnosis: Anemia This RN CM attempted to contact pt via phone regarding discharge follow-up. Voicemail received and message left requesting a return call if pt has any questions or concerns. Tyler Su RN
--- OUTSIDE RECORDS SUMMARY | 2018-10-24 11:25 | XMS RPT_ITS ---
:1935 Author Organization [place] Support Name Relationship Address Phone CANDI RODRIGUEZ [employer] [address] + [place] [address] R Unknown Unavailable Unavailable PETCANDI HARRIS [employer] [address] + [place] [address] R Unknown Unavailable Unavailable PETCANDI HARRIS [employer] [address] + [place] [address] R Unknown Unavailable Unavailable PETCANDI HARRIS [employer] [address] + [place] [address] R Unknown Unavailable Unavailable PETCANDI HARRIS [employer] [address] + [place] [address] R Unknown Unavailable Unavailable PETCANDI HARRIS [employer] [address] + [place] [address] R Unknown Unavailable Unavailable PETHELCANDI [employer]aughter [address] + [place] [address] R Unknown Unavailable Unavailable PETCANDI HARRIS [employer] [address] + [place] [address] R Unknown Unavailable Unavailable PETHELCANDI [employer]aughter [address] + [place] [address] R Unknown Unavailable Unavailable PETCANDI HARRIS [employer] [address] + [place] [address] R Unknown Unavailable Unavailable PETHELCANDI Natural[employer] [address] + [place] [address] R Unknown Unavailable Unavailable R Unknown Unavailable Unavailable PETHELCANDI [employer]aughter [address] + [place] [address] R Unknown Unavailable Unavailable PETHELCANDI [employer] [address] + [place] [address] R Unknown Unavailable Unavailable [address] + [place] [address] PETHEL, CANDI Natural[employer]aughter [address] + [place] [address] R Unknown Unavailable Unavailable [address] + [place] [address] PETHEL, CANDI Natural[employer] [address] + [place] [address] R Unknown Unavailable Unavailable [address] + [place] [address] [facility] CANDI Natural[employer]aughter [address] + [place] [address] R Unknown Unavailable Unavailable [address] + [place] [address] [facility], CANDI Natural[employer]aughter [address] + [place] [address] R Unknown Unavailable Unavailable [address] + [place] [address] [facility], CANDI Natural[employer]aughter [address] + [place] [address] R Unknown Unavailable Unavailable [address] + [place] [address] [facility], CANDI Natural[employer]aughter [address] + [place] [address] R Unknown Unavailable Unavailable [address] + [place] [address] [facility], CANDI Natural[employer]aughter [address] + [place] [address] R Unknown Unavailable Unavailable [address] + [place] [address] [facility], CANDI Natural[employer]aughter [address] + [place] [address] R Unknown Unavailable Unavailable [address] + [place] [address] [facility], CANDI Natural[employer]aughter [address] + [place] [address] R Unknown Unavailable Unavailable [address] + [place] [address] PETCANDI HARRIS [employer] [address] + [place] [address] R Unknown Unavailable Unavailable [address] + [place] [address] PETKIMBERLY, CANDI Natural[employer]aughter [address] + [place] [address] R Unknown Unavailable Unavailable [address] + [place] [address] PETKIMBERLY, CANDI Natural[employer]aughter [address] + [place] [address] R Unknown Unavailable Unavailable [address] + [place] [address] PETKIMBERLY, CANDI Natural[employer]aughter [address] + [place] [address] R Unknown Unavailable Unavailable [address] + [place] [address] PETANNMARIE HARRISA Natural[employer]aughter [address] + [place] [address] R Unknown Unavailable Unavailable Care Team Providers Name Role Phone Candice Amado Primary Care Unavailable Lawson Biggs Admitting Unavailable Lawson Biggs Referring Unavailable Nnamdi Cooper Unavailable Jose Mg Attending Unavailable Barbara, Sameh Attending Unavailable Barbara, Sameh Referring Unavailable Ciesa, Heidi Primary Care Unavailable Barbara, Same Attending Unavailable Barbara, Sameh Referring Unavailable Ciesa, Heidi Primary Care Unavailable Barbara, Same Attending Unavailable Barbara, Sameh Referring Unavailable Ciesa, Heidi Primary Care Unavailable Ciesa Heidi Attending Unavailable Ciesa, Heidi Referring Unavailable Ciesa, Heidi Primary Care Unavailable Ciesa Heidi Attending Unavailable Ciesa, Heidi Primary Care Unavailable Ciesa Heidi Attending Unavailable Ciesa, Heidi Referring Unavailable Ciesa, Heidi Primary Care Unavailable Arya Chambers Attending Unavailable Candice Amado Primary Care Unavailable Candice Amado Attending Unavailable Aneudy, Candice Primary Care Unavailable Shahid Gutiérrez Attending Unavailable Gutierrezbour, Shahid Referring Unavailable Aneudy, Candice Primary Care Unavailable Roxanna Booker Attending Unavailable Hugh Olivares Referring Unavailable Aneudy, Candice Primary Care Unavailable Kotsonis, Lawson F Admitting Unavailable Kotsonis, Lawson F Referring Unavailable Aneudy, Candice Primary Care Unavailable Nnamdi Cooper Consulting Unavailable Paintsil, [place] Attending Unavailable Ashelfah, Ghasem Consulting Unavailable Kotsonis, Lawson F Admitting Unavailable Nnamdi Cooper Attending Unavailable Kotsonis, Lawson F Referring Unavailable Aneudy, Candice Primary Care Unavailable Nnamdi Cooper Consulting Unavailable Ashelfah, Ghasem Consulting Unavailable Kotsonis, Lawson F Admitting Unavailable Ashelfah, Ghasem Attending Unavailable Kotsonis, Lawson F Referring Unavailable Aneudy, Candice Primary Care Unavailable Nnamdi Cooper Consulting Unavailable Ashelfah, Ghasem Consulting Unavailable Barbara, Sameh Attending Unavailable Barbara, Sameh Referring Unavailable Aneudy, Candice Primary Care Unavailable Aneudy, Candice Attending Unavailable Aneudy, Candice Referring Unavailable Aneudy, Candice Primary Care Unavailable Nurse, Surgery Attending Unavailable Aneudy, Candice Referring Unavailable Aneudy, Candice Attending Unavailable Aneudy, Candice Referring Unavailable Aneudy, Candice Primary Care Unavailable Aneudy, Candice Attending Unavailable Aneudy, Candice Referring Unavailable Aneudy, Candice Primary Care Unavailable Aneudy, Candice Attending Unavailable Aneudy, Candice Primary Care Unavailable Aneudy, Candice Attending Unavailable Aneudy, Candice Primary Care Unavailable Aneudy, Candice Referring Unavailable Barbara, Sameh Attending Unavailable Barbara, Sameh Referring Unavailable Aneudy, Candice Primary Care Unavailable Leigh Ann Early Consulting Unavailable Barbara, Sameh Attending Unavailable Barbara, Sameh Referring Unavailable Aneudy, Candice Primary Care Unavailable Aneudy, Candice Attending Unavailable Aneudy, Candice Referring Unavailable Aneudy, Candice Primary Care Unavailable Aneudy, Candice Attending Unavailable Aneudy, Candice Primary Care Unavailable Aneudy, Candice Referring Unavailable Aneudy, Candice Attending Unavailable Aneudy, Candice Referring Unavailable Aneudy, Candice Primary Care Unavailable Vellanki, Roxanna Attending Unavailable Vellannaomi, Roxanna Referring Unavailable Gayle Amadohleen Primary Care Unavailable Candice Amado DO Attending Unavailable Heidi Mack Referring Unavailable Aneudy BLACK, Candice Consulting Unavailable DAISY MARY Admitting Unavailable SETH LONG Consulting Unavailable YING BRODY Attending Unavailable UNKNOWN, PROVIDER Admitting Unavailable IMCA Primary Care Unavailable Buddy LONG Consulting Unavailable Buddy BRODY Attending Unavailable Purpose Purpose PROBLEMS PROBLEMS DATE TYPE CONDITION / CODE ATTENDING STATUS SOURCE 07/27/2018 Unknown M25.562 - Pain in [facility] Active [place] left knee / Community M25.562(ICD-10) Hospital Repository 07/27/2018 Unknown M25.551 - Pain in [facility] Active [place] right hip / Community M25.551(ICD-10) Hospital Repository 07/27/2018 Unknown M25.561 - Pain in [facility] Active [place] right knee / Community M25.561(ICD-10) Hospital Repository 06/12/2018 Unknown M06.00 - Rheumatoid V[place]ank[place], Active [place] arthritis without [facility] rheumatoid factor, Hospital unspecified site / Repository M06.00(ICD-10) 06/12/2018 Unknown Z79.899 - Other long Vellanki, Active [place] term (current) drug [facility] therapy / Hospital Z79.899(ICD-10) Repository 06/12/2018 Unknown M79.7 - Fibromyalgia Vellanki, Active [place] / M79.7(ICD-10) [facility] Hospital Repository 06/12/2018 Unknown M15.9 - [place]anki, Active [place] Polyosteoarthritis, [facility] unspecified / Hospital M15.9(ICD-10) Repository 06/12/2018 Unknown K21.0 - [place], Active [place] Gastro-esophageal [facility] reflux disease with Hospital esophagitis / Repository K21.0(ICD-10) 06/12/2018 Unknown F32.89 - Other [place], Active [place] specified depressive [facility] episodes / Hospital F32.89(ICD-10) Repository 06/12/2018 Unknown E78.5 - [place], Active [place] Hyperlipidemia, [facility] Community unspecified / Hospital E78.5(ICD-10) Repository 06/12/2018 Unknown M47.897 - Other Vellannaomi, Active [place] spondylosis, [facility] lumbosacral region / Hospital M47.897(ICD-10) Repository 05/17/2018 Unknown M47.816 - Spondylosis Eris Jimenez Active [place] without myelopathy or Community radiculopathy, lumbar Hospital region / Repository M47.816(ICD-10) 01/30/2018 Unknown D53.9 - Nutritional Aneudy, Active [place] anemia, unspecified / [facility] Community D53.9(ICD-10) Hospital Repository 03/08/2018 Unknown M54.9 - Dorsalgia, Eris Jimenez Active [place] unspecified / Community M54.9(ICD-10) Hospital Repository 09/19/2017 Unknown R91.1 - Solitary Heidi Mack Active [place] pulmonary nodule / Community R91.1(ICD-10) Hospital Repository 09/20/2017 Active Gastrointestinal YING BRODY Active [place] hemorrhage, [facility] Other unspecified / [place] K92.2(ICD-10) Repository 09/20/2017 Admitting Unknown / Buddy BRODY Active [facility] diagnosis UNK(Unknown) [facility] Repository 09/20/2017 Unknown D64.9 - Anemia, Heidi Mack Active [place] unspecified / Community D64.9(ICD-10) Hospital Repository 09/13/2017 Unknown M54.16 - Eris Jimenez Active [place] Radiculopathy, lumbar [facility] region / Hospital M54.16(ICD-10) Repository 09/13/2017 Unknown M54.5 - Low back pain Eris Jimenez Active [place] / M54.5(ICD-10) [facility] Hospital Repository 09/12/2017 Unknown M25.522 - Pain in Heidi Mack Active [place] left elbow / Community M25.522(ICD-10) Hospital Repository PROCEDURES PROCEDURES No Procedure Records FoundVITAL SIGNS VITAL SIGNS No Vital Signs Records FoundRESULTS RESULTS Observed: 08/06/2018 Status: F Source: [place] RSV AG (RAPID MUKUND) 3:35 PM [facility] REPOSITORY RSV Ag (MUKUND) Normal Reference Range = Negative RSV Ag NEGATIVE Performed By: #### M100.6601 #### [facility] [address] [place], [address] HIPS B/L MIN 2 Observed: 07/27/2018 Status: F Source: [place] VIEWS W/ PELVIS 4:39 PM [facility] REPOSITORY [facility] Imaging Services [address] [place] [address] Hips B/L min 2 views w/ Pelvis MR#: [id number] Acct: [id number] Name: JOLENE AKHTAR Rep #: [id number] : 1935 F 83 From: Vimal Wayne MD PCP: Candice Amado DO Status: REG CLI Study: Hips B/L min 2 views w/ Pelvis Date of Exam: 07/27/18 Exam# [id number] Ordering Dr: Eris Jimenez MD STUDY: X-RAY - PELVIS AND BILATERAL HIP REASON FOR EXAM: Female, 83 years old. Pain radiating down bilateral legs, worst in the knees.. History of lumbar surgery in 2010. TECHNIQUE: 5 views of the pelvis and hip. COMPARISON: X-ray pelvis 08/15/2013. FINDINGS: There is a non-specific bowel gas pattern. Normal visualized soft tissue structures. Normal bilateral iliac wings, sacroiliac joints and visualized sacrum. Normal bilateral superior and inferior pubic rami. Normal pubic symphysis. Normal bilateral ischial tuberosities. There are osteoarthritic changes of the right femoral head with marginal osteophyte formation. There is osteoarthritic spur formation of the acetabular rim. There is moderate articular joint space narrowing of the right hip. There are osteoarthritic changes of the left femoral head with marginal osteophyte formation. There is osteoarthritic spur formation of the acetabular rim. There is mild articular joint space narrowing of the left hip. There are postsurgical changes in the visualized lower lumbar spine. RAD/Hips B/L min 2 views w/ Pelvis IMPRESSION: Degenerative arthrosis of both hips, right greater than left. No demonstrated fracture, dislocation, or destructive osseous lesion. Electronically Signed: Vimal Wayne MD at 8:06 EST , Service support , CC: Candice Amado DO; Eris Jimenez M.D. Dental Treatment Coordinator: Signed KNEE 4 OR MORE Observed: 07/27/2018 Status: F Source: [place] VIEWS 4:39 PM [facility] REPOSITORY [facility] Imaging Services [address] [place] [address] Knee 4 or More Views MR#: [id number] Acct: [id number] Name: JOLENE AKHTAR Rep #: [id number] : 1935 F 83 From: Stef Mendez DO PCP: Candice Amado DO Status: REG CLI Study: Knee 4 or More Views Date of Exam: 07/27/18 Exam# [id number] Ordering Dr: Eris Jimenez MD STUDY: X-RAY - RIGHT KNEE REASON FOR EXAM: Female, 83 years old. Pain radiating into both legs TECHNIQUE: 4 view(s) of the knee. COMPARISON: None. FINDINGS: Normal visualized distal femur. Normal visualized proximal tibia and fibula. Normal proximal tibiofibular articulation. Normal medial femorotibial compartment. Normal lateral femorotibial compartment. There is mild degenerative arthrosis of the patellofemoral articulation. Lateral compartment chondrocalcinosis. No significant joint effusion The soft tissue structures are unremarkable. RAD/Knee 4 or More Views IMPRESSION: No acute findings. Remainder is above Electronically Signed: Stef Mendez DO at 12:09 EST Tel , Service support , CC: Candice Amado DO; Eris Jimenez M.D. Dental Treatment Coordinator: Signed KNEE 4 OR MORE Observed: 07/27/2018 Status: F Source: [place] VIEWS 4:39 PM [facility] Imaging Services [address] [place] [address] Knee 4 or More Views MR#: [id number] Acct: [id number] Name: JOLENE AKHTAR Rep #: [id number] : 1935 F 83 From: Stef Mendez DO PCP: Candice Amado DO Status: REG CLI Study: Knee 4 or More Views Date of Exam: 07/27/18 Exam# [id number] Ordering Dr: Eris Jimenez MD STUDY: X-RAY - LEFT KNEE REASON FOR EXAM: Female, 83 years old. Left knee pain TECHNIQUE: 4 view(s) of the knee. COMPARISON: None. FINDINGS: Normal visualized distal femur. Normal visualized proximal tibia and fibula. Normal proximal tibiofibular articulation. There is mild degenerative arthrosis of the medial femorotibial compartment. There is mild degenerative arthrosis of the lateral femorotibial compartment. There is mild degenerative arthrosis of the patellofemoral articulation. There is no demonstrated joint effusion. Lateral compartment chondrocalcinosis The soft tissue structures are unremarkable. RAD/Knee 4 or More Views IMPRESSION: Degenerative arthrosis. Electronically Signed: Stef Mendez DO at 12:09 EST Tel , Service support , CC: Candice Amado DO; Eris Jimenez M.D. Dental Treatment Coordinator: Signed 12 LEAD ELECTROCARDIOGRAM Observed: 07/25/2018 Status: F Source: [place] 3:20 PM [facility] REPOS[facility] Cardiovascular Services [address] [place] [address] 12 Lead EKG 07/21/18 1310 MR#: [id number] Acct: [id number] Name: JOLENE AKHTAR Rep #: [id number] : 1935 83 From: James Dinero MD Attending Dr: Jose Mg Status: DIS IN Ordering Dr: Veronica Maurer DO Date: 07/21/18 Location: [facility] Sex: F C Admitted: 07/21/18 Test Reason : ABNORMAL LABS Blood Pressure : / mmHG Vent. Rate : 090 BPM Atrial Rate : 090 BPM P-R Int : 170 ms QRS Dur : 080 ms QT Int : 352 ms P-R-T Axes : 014 -32 021 degrees QTc Int : 430 ms Normal sinus rhythm Left axis deviation Inferior infarct , age undetermined Anterolateral infarct , age undetermined Abnormal ECG Confirmed by HONORIO MONTANEZ, JAMES ([id number]), editor in chief NASREEN BRODY ([id number]) on 07/25/2018 3:20:32 PM Referred By: Lawson Biggs Confirmed By:JAMES DINERO MD 07/25/18 1520 Date James Dinero MD CC: Jose Mg; Candice Amado DO; Lawson Biggs MD; Veronica Maurer DO Signed DISCHARGE SUMMARY Observed: 07/22/2018 Status: F Source: [place] 2:21 PM [facility] REPOSITORY [facility] Medical Records Department [address] [place] [address] Discharge Summary 07/22/18 1411 MR#: [id number] Acct: [id number] Name: JOLENE AKHTAR Rep #: [id number] : 1935 83 From: Jose Mg MD PCP: Candice Amado DO Status: ADM IN Y Location: [place] [address] Discharge Date and Diagnosis - Problem List Patient Problems: Active and Suspected Problems Anemia (Acute) Date of Admission: 07/21/18 Date of Discharge: 07/22/18 - Primary Discharge Diagnosis Active and Suspected Problems Acute on chronic symptomatic iron deficiency anemia, upper EGD and colonoscopy were negative for active GI bleed. - Secondary Discharge Diagnosis Chronic Problems Rheumatoid arthritis (Chronic) Migraine (Chronic) Asthma (Chronic) Hiatal hernia (Chronic) Spondylosis of lumbar region without myelopathy or radiculopathy (Chronic) Hospital Course and Treatment Dr. Cooper, general surgery. Operations: None Procedures: Blood transfusion Summary of Care Provided: Patient seen and examined on the day of discharge and appeared to be stable to be discharged home. She denied any more dizziness, shortness of breath or weakness. She felt better. She continued to deny any bleeding from body orifices, no hematemesis, hematochezia. Her stool was negative for occult blood. Her vital signs are stable. The patient is a 83 year old F admitted because of weakness, fatigue and exertional shortness of breath and she was found to have acute on chronic iron deficiency anemia., Denied epistaxis, hemoptysis, hematemesis, hematochezia, hematuria and reported dark stools but she has been on iron supplement. Her stool was negative for occult blood. Her hemoglobin was as low as 6.8 g/dL. She received 1 unit of packed RBCs and her hemoglobin went up to 9.3 g/dL upon discharge. Her platelet count was normal. Her pro time and INR was normal. Patient had extensive workup in the past with upper EGD and colonoscopy for anemia and that revealed no evidence of GI bleed. Most recent upper EGD and coloscopy was from September, and that was done at [facility]. Upper EGD at that time revealed erosive gastritis without evidence of active bleeding and gastric biopsy was negative for H. pylori. Colonoscopy revealed diverticulosis and colonic polyps that was removed and again without evidence of active bleeding. Apparently, patient was recommended to have capsule endoscopy by the GI doctor who performed the endoscopy on September,. After blood transfusion, patient symptoms of weakness and exertional shortness of breath improved. Her symptoms improved drastically and this was not expected. Her hemoglobin improved dramatically, went up from 6.8 g/dL to 9.3 g/dL with only 1 unit of packed RBCs transfusion. She remained stable without evidence of bleeding. Her vital signs remained stable. Repeat hemoglobin and hematocrit after blood transfusion today revealed hemoglobin of 9.3 g/dL. Patient discharged home in a stable medical condition, continued on PPI and iron supplement, recommended to follow-up with PCP in 1 week, have CBC done in a week to check her hemoglobin and hematocrit, I would recommend referring patient to GI for capsule endoscopy as outpatient. Dr. cooper evaluated the patient this admission and recommended upper EGD and colonoscopy as outpatient. At this time, I am not sure if the repeat upper endoscopy and colonoscopy in the near future would be of any benefit to the patient as she had upper endoscopy and colonoscopy on September,. Patient Problems: Active and Suspected Problems Anemia (Acute) - Physical Exam General: Alert, Oriented x3, Cooperative, No apparent distress HEENT: Atraumatic, PERRLA, EOMI, Normocephalic Oral: Moist Mucosa, No Gingival or Mucosal Lesions/ Ulcerations Neck: Supple, No JVD, Negative Carotid Bruits, Trachea Midline, Thyroid Normal Size and Texture Lungs: Clear to auscultation, Normal air movement, No rhonchi, No wheeze, No rales Cardiovascular: Regular rate, Regular Rhythm, Normal S1, Normal S2, PMI Normal Abdomen: Bowel Sounds Present, Soft, Non Tender, Non-Distended, No Hepato-splenomegaly Extremities: No clubbing, No cyanosis, No edema Skin: No rashes, No breakdown Lymphatic: No Cervical, Supraclavicular, or Inguinal Adenopathy Neurological: Cranial nerves II-XII grossly intact, Neuro grossly intact Psych/Mental Status: Normal Affect, Appropriate Vital Signs Temp Pulse Resp BP Pulse Ox 98.3 F 71 18 152/77 H 97 07/22/18 09:55 07/22/18 11:05 07/22/18 09:55 07/22/18 09:55 07/22/18 12:13 Oxygen Flow Rate (L/min) 2 Oxygen Delivery Method Room Air Weight: 196 lb 6.91 oz Body Mass Index (BMI) 39.6 Intake and Output for Last 24 Hours Intake Total 544 / 544 941 / 941 Output Total 300 / 300 550 / 550 Balance 244 / 244 391 / 391 Microbiology Past 72 Hours 07/21/18 14:30 Stool Occult Blood (WILLIE) - Final Stool Laboratory Tests Past 24 Hrs WBC 5.0 Discharge Activity: Return to Normal Activity Weight Bearing Status: Weight bearing as tolerated Call your doctor if you observe: Fever of 101 or Higher, Shortness of breath, Dizziness, Fainting spells, Chest pain, Increased palpitations (irregular heartbeat), Uncontrolled pain Home Medications: Medications to take at Discharge Butalb/Acetaminophen/Caffeine [Fioricet 50-300-40 mg Capsule] 1 each PO Q4H PRN PRN 02/16/14 Diphenoxylate HCl/Atropine [Lomotil 2.5-0.025 mg Tablet] 2.5 mg PO TID PRN PRN 02/16/14 Duloxetine Hcl [Cymbalta] 60 mg PO DAILY 02/16/14 Atenolol [Tenormin (beta tyler)] 25 mg PO BID 06/09/15 Hydroxychloroquine [Plaquenil] 200 mg PO DAILY 06/09/15 Ropinirole HCl [Requip] 0.5 mg PO QHS 06/09/15 Sumatriptan Succinate [Imitrex] 100 mg PO .X1 PRN MDD MIGRAINE 06/09/15 Gabapentin [Neurontin] 200 mg PO DAILY 09/20/16 Gabapentin [Neurontin] 300 mg PO QHS 09/20/16 Iron Carbonyl [Feosol] 65 mg PO BID 04/19/17 Lidocaine/Transparent Dressing [Lidocaine 4% Kit] 1 each TP BID PRN 04/19/17 Prednisone 10 mg PO PRN PRN 04/19/17 Multivitamins,Therapeutic [Multivitamin] 1 tablet PO DAILY 01/29/18 Hydrocodone/Acetaminophen [[place] 5-325 Tablet] 1 each PO BID PRN PRN 03/09/18 Cholecalciferol (VIT D3) [Vitamin D3] 1,000 unit PO DAILY 07/21/18 Folic Acid 0.4 mg PO DAILY@0800 07/21/18 Furosemide [Lasix] 20 mg PO DAILY PRN PRN 07/21/18 Pantoprazole Sodium [Protonix] 40 mg PO DAILY 07/21/18 buPROPion XL [Wellbutrin Xl] 150 mg PO DAILY 07/21/18 Primary Care Physician: Candice Amado DO [Primary Care Provider] - Please follow up with your Primary Care Physician in: 1 week. Disposition: Home Minutes spent on discharge:: 26 Patient Condition:: Stable Medical Necessity - Tobacco Use Smoking Status: Never smoker Tobacco Use: Non-smoker Meaningful Use Info Meaningful Use Diagnoses (Choose all that apply): None applicable Code Visit Inpatient E AND M: 21828 Disch Hosp 07/22/18 1421 <Electronically signed by Jose Mg MD> Date Jose Mg MD Cosigner Signature (if applicable): Date CC: Nnamdi Cooper MD; Jose Mg; Candice Amado DO Signed DISCHARGE INSTRUCTION Observed: 07/22/2018 Status: F Source: [place] 2:11 PM [facility] REPOSITORY [facility] Medical Records Department [address] [place] [address] Instructions for Home/Discharge Instructions 07/22/18 1410 MR#: [id number] Acct: [id number] Name: JOLENE AKHTAR Rep #: [id number] : 1935 83 From: Jose Mg MD PCP: Candice Amado DO Status: ADM IN - Discharge Diagnoses Current Active Problems: Current Active and Chronic Problems Anemia (Acute) Rheumatoid arthritis (Chronic) Migraine (Chronic) Asthma (Chronic) Hiatal hernia (Chronic) You will use the following diet at home:: Regular Your food should be the consistency of: Regular Discharge Activity: Return to Normal Activity Weight Bearing Status: Weight bearing as tolerated Call your doctor if you observe: Fever of 101 or Higher, Shortness of breath, Dizziness, Fainting spells, Chest pain, Increased palpitations (irregular heartbeat), Uncontrolled pain Additional Instructions: Please have a blood work done at your PCPs office in a week and require your PCP about referral to GI for possible capsule endoscopy. Allergies/Adverse Reactions: Allergies No Known Allergies Allergy (Verified 07/21/18 12:36) Medications to take at Discharge Butalb/Acetaminophen/Caffeine [Fioricet 50-300-40 mg Capsule] 1 each PO Q4H PRN PRN 02/16/14 Diphenoxylate HCl/Atropine [Lomotil 2.5-0.025 mg Tablet] 2.5 mg PO TID PRN PRN 02/16/14 Duloxetine Hcl [Cymbalta] 60 mg PO DAILY 02/16/14 Atenolol [Tenormin (beta tyler)] 25 mg PO BID 06/09/15 Hydroxychloroquine [Plaquenil] 200 mg PO DAILY 06/09/15 Ropinirole HCl [Requip] 0.5 mg PO QHS 06/09/15 Sumatriptan Succinate [Imitrex] 100 mg PO .X1 PRN MDD MIGRAINE 06/09/15 Gabapentin [Neurontin] 200 mg PO DAILY 09/20/16 Gabapentin [Neurontin] 300 mg PO QHS 09/20/16 Iron Carbonyl [Feosol] 65 mg PO BID 04/19/17 Lidocaine/Transparent Dressing [Lidocaine 4% Kit] 1 each TP BID PRN 04/19/17 Prednisone 10 mg PO PRN PRN 04/19/17 Multivitamins,Therapeutic [Multivitamin] 1 tablet PO DAILY 01/29/18 Hydrocodone/Acetaminophen [[place] 5-325 Tablet] 1 each PO BID PRN PRN 03/09/18 Cholecalciferol (VIT D3) [Vitamin D3] 1,000 unit PO DAILY 07/21/18 Folic Acid 0.4 mg PO DAILY@0800 07/21/18 Furosemide [Lasix] 20 mg PO DAILY PRN PRN 07/21/18 Pantoprazole Sodium [Protonix] 40 mg PO DAILY 07/21/18 buPROPion XL [Wellbutrin Xl] 150 mg PO DAILY 07/21/18 Primary Care Physician: Candice Amado DO [Primary Care Provider] - Please follow up with your Primary Care Physician in: 1 week. Test Results: Test results from this visit will be discussed in further detail at your follow-up appointment, if applicable. 07/22/18 1411 <Electronically signed by Jose Mg MD> Date Jose Mg MD CC: Nnamdi Cooper MD; Candice Amado DO HH, HEMOGLOBIN AND Collected: 07/22/2018 Status: F Source: JOAN HEMATOCRIT 1:30 PM [facility] REPOSITORY TYPE CODE TESTS RESULT OUT OF RANGE REFERENCE UNITS LAB L100.1300 12.0-15.0 g/dl Low HGB 9.3 LAB L100.1400 37-47 % Low HCT 31.6 Performed By: #### L100.0600 #### [facility] [address] [facility] [place], [address] PROTHROMBIN TIME W/INR Collected: 07/22/2018 Status: F Source: JOAN 11:00 AM [facility] REPOSITORY Order Comment: Comments: from blood in lab. TYPE CODE TESTS RESULT OUT OF RANGE REFERENCE UNITS LAB L300.4150 11.7-14.9 SECONDS Normal PROTIME 13.8 LAB L300.4200 Normal INR 1.1 Performed By: #### L300.3900 #### [facility] [address] [facility] [place], [address] CONSULTATION Observed: 07/22/2018 Status: F Source: JOAN 10:06 AM [facility] REPOSITORY [facility] Medical Records Department [address] [place] [address] Consultation 07/22/18 1001 MR#: [id number] Acct: [id number] Name: JOLENE AKHTAR Rep #: [id number] : 1935 83 From: Nnamdi Cooper MD PCP: Candice Amado DO Status: ADM IN Location: [place] [address] Problem List (1) Anemia Status: Acute Qualifiers: Anemia type: iron deficiency Iron deficiency anemia type: chronic blood loss Qualified Code(s): D50.0 - Iron deficiency anemia secondary to blood loss (chronic) Reason for Consult Date of Consultation: 07/22/18 Reason for Consultation: Iron deficiency anemia History of Present Illness: The patient is a 83 year old F who was admitted to the hospital with shortness of breath and found to be anemic. The patient reports that she is not having any abdominal pain or nausea or vomiting. She is having dark stools but she says she is on an iron supplement. She had an FOBT which was negative. She does not have any gross blood in her stool. She believes she was scoped 1 year ago by the [facility] physicians and it was normal. Past Medical History Past Medical History (Chronic Problems): Chronic Problems Rheumatoid arthritis (Chronic) Migraine (Chronic) Asthma (Chronic) Hiatal hernia (Chronic) Spondylosis of lumbar region without myelopathy or radiculopathy (Chronic) Allergies No Known Allergies Allergy (Verified 07/21/18 12:36) Home Medications: Ambulatory Orders Medication Instructions Recorded Butalb/Acetaminophen/Caffeine 1 each PO Q4H PRN PRN 02/16/14 Surgical History: appendectomy, hysterectomy, tonsillectomy, - - back surgery, carpal tunnel tarsal tunnel Psychiatric History: No pertinent psych hx THERAPEUTIC RADIOLOGIST History: No pertinent THERAPEUTIC RADIOLOGIST history Lives: With Family Smoking Status: Never smoker Tobacco Use: Non-smoker Alcohol: None Drugs: None - *Family History Maternal History Items: Heart Disease Paternal History Items: No pertinent history Review of Systems Constitutional: Denies: Anorexia, Chills, Fever HEENT: Denies: Difficulty Swallowing Cardiovascular: Denies: Chest Pain Respiratory: Reports: Shortness of Breath Gastrointestinal: Reports: Diarrhea. Denies: Abdominal Pain, Nausea, Melena, Vomiting Genitourinary: Denies: Dysuria Musculoskeletal: Denies: Joint Tenderness Skin: Denies: Jaundice Hematologic/ Lymphatic: Reports: Anemia Patient Problems: Active and Suspected Problems Anemia (Acute) - Physical Exam General: Alert, Oriented x3, Cooperative, No apparent distress HEENT: Atraumatic Neck: No JVD Lungs: Normal air movement Cardiovascular: Regular rate, Regular Rhythm Abdomen: Soft, Non Tender, Non-Distended Extremities: No cyanosis Skin: No rashes Musculoskeletal: No Muscle Wasting Neurological: Cranial nerves II-XII grossly intact Psych/Mental Status: Normal Affect, Appropriate Vital Signs Temp Pulse Resp BP Pulse Ox 98.3 F 69 20 H 138/87 H 100 07/22/18 03:59 07/22/18 07:06 07/22/18 03:59 07/22/18 03:59 07/22/18 03:59 Oxygen Flow Rate (L/min) 2 Oxygen Delivery Method Nasal Cannula Weight: 196 lb 6.91 oz Body Mass Index (BMI) 39.6 Intake and Output for Last 24 Hours Intake Total 544 / 544 365 / 365 Output Total 300 / 300 550 / 550 Balance 244 / 244 -185 / -185 Microbiology Past 72 Hours 07/21/18 14:30 Stool Occult Blood (WILLIE) - Final Stool Laboratory Tests Past 24 Hrs WBC 5.6 RBC 3.02 L Hgb 7.5 L Hct 26.0 L WBC WBC 5.0 RBC 3.44 L Hgb 6.8 L 8.6 L Assessment/Plan All Active Problems Anemia (Acute) 83-year-old female with anemia 1. The patient is having iron deficiency anemia but she is taking iron supplements which may be making her stools dark. She also is on chronic prednisone which may be causing gastritis. She has been started on a PPI in house and I would recommend continuing this on discharge. 2. The patient feels better after her transfusion. She is not having any active large amounts of blood loss. I will have my office call her this week and schedule her for an outpatient EGD and colonoscopy. The patient may start on a regular diet and be discharged when she is okay from a medical standpoint. Please continue PPI on discharge. Nnamdi Cooper MD Pager: [facility] [address] [place] [address] [address] [place] [address] Office: 07/22/18 1006 <Electronically signed by Nnamdi Cooper MD> Date Nnamdi Cooper MD Cosigner Signature (if applicable): Date CC: Nnamdi Cooper MD; Candice Amado DO; Lawson Biggs MD Signed HISTORY AND PHYSICAL Observed: 07/22/2018 Status: F Source: ARMUCHEE EXAM 8:10 AM [facility] REPOSITORY [facility] Medical Records Department [address] [place] [id number] History and Physical 07/21/18 1529 MR#: [id number] Acct: [id number] Name: JOLENE AKHTAR Rep #: [id number] : 1935 83 From: Yemi MORA PCP: Candice Amado DO Status: ADM IN Y Location: [facility] [id number] <Yemi Silva - Last Filed: 07/21/18 15:29> Problem List (1) Anemia Status: Acute (2) Rheumatoid arthritis Status: Chronic (3) Migraine Status: Chronic (4) Asthma Status: Chronic (5) Hiatal hernia Status: Chronic (6) Spondylosis of lumbar region without myelopathy or radiculopathy Status: Chronic History of Present Illness Date of Admission: 07/21/18 Chief Complaint: weakness The patient is a 83 year old F with a pmhx of RA, iron deficiency anemia, hiatal hernia, chronic back pain, migraines, asthma, LE DVT previously on OAC, who presents to the ER after being sent by her PCP for anemia. She presented to her PCP with c/o cough. She has been severely weak and dyspneic with exertion. She also complains of BL LE swelling and pain. She was found to have hgb 7.5 and sent to the ER. She had mild RLQ abdominal pain 2 days ago. She had diarrhea earlier this week that were dark. She does take iron. She thinks she had a colonoscopy about a year ago but cannot remember who did it and cannot remember what she had. She has had an Upper endoscopy but cant remember when, but does know that this showed a hiatal hernia. She does not take NSAIDS. [] Past Medical History Past Medical History (Chronic Problems): Chronic Problems Rheumatoid arthritis (Chronic) Migraine (Chronic) Asthma (Chronic) Hiatal hernia (Chronic) Spondylosis of lumbar region without myelopathy or radiculopathy (Chronic) Allergies No Known Allergies Allergy (Verified 07/21/18 12:36) Home Medications: Ambulatory Orders Medication Instructions Recorded Butalb/Acetaminophen/Caffeine 1 each PO Q4H PRN PRN 02/16/14 Surgical History: appendectomy, hysterectomy, tonsillectomy, - - back surgery, carpal tunnel tarsal tunnel Psychiatric History: No pertinent psych hx THERAPEUTIC RADIOLOGIST History: No pertinent THERAPEUTIC RADIOLOGIST history Lives: With Family Smoking Status: Never smoker Tobacco Use: Non-smoker Alcohol: None Drugs: None - *Family History Maternal History Items: Heart Disease Paternal History Items: No pertinent history Review of Systems Constitutional: Denies: Chills, Fever, Weight Change HEENT: Denies: Head Aches, Sinus Congestion, Sinus Drainage Cardiovascular: Denies: Chest Pain, Palpitations Respiratory: Denies: Cough, Shortness of breath at rest, Sputum production Gastrointestinal: Denies: Abdominal Pain, Nausea, Vomiting Genitourinary: Denies: Dysuria Musculoskeletal: Denies: Joint Pain, Joint Tenderness Skin: Denies: Rash, Wounds Neurological: Denies: Numbness, Tingling, Focal weakness Psychiatric: Denies: Anxiety, Depression, Homicidal Ideations, Suicidal Ideations Hematologic/ Lymphatic: Denies: Easy Bruising, Easy Bleeding VTE Information - Inpt Only VTE Present on Admission: No VTE Mechan Device Prophylaxis: SCD's, None VTE Pharm Prophylaxis ordered?: No Patient Problems: Active and Suspected Problems Anemia (Acute) - Physical Exam General: Alert, Oriented x3, Cooperative HEENT: Atraumatic, PERRLA, EOMI, Normocephalic Neck: Supple, No JVD, Negative Carotid Bruits Lungs: Clear to auscultation, Normal air movement Cardiovascular: Regular rate, No murmurs Abdomen: Bowel Sounds Present, Soft, Non Tender Extremities: Capillary Refill Less than 3 Seconds, Edema, - - + gualberto sign BL Skin: No rashes, No breakdown Musculoskeletal: No Tenderness to Palpation of Joints or Extremities Neurological: Cranial nerves II-XII grossly intact Psych/Mental Status: Normal Affect, Appropriate, Alert and oriented to time, place, person, mood and affect Vital Signs Temp Pulse Resp BP Pulse Ox 98.3 F 81 18 145/70 H 100 07/21/18 12:34 07/21/18 14:45 07/21/18 14:45 07/21/18 14:45 07/21/18 12:34 Oxygen Delivery Method Room Air Weight: 180 lb Body Mass Index (BMI) 37.6 Microbiology Past 72 Hours 07/21/18 14:30 Stool Occult Blood (WILLIE) - Final Stool Laboratory Tests Past 24 Hrs Assessment/Plan All Active Problems Anemia (Acute) 1. Acute anemia of unclear etiology, concern for GI bleed with black stools. Symptomatic with worsening weakness and SOB with exertion. However Hemoccult negative. Not on blood thinning agents. Not on NSAIDs. Consult to surgery. Trend H/H. Hx iron deficiency. Continue PO iron. Check iron panels. Hx RA as well. Start PPI PO BID. Trop neg. Pt does not remember when or who did last upper/lower scopes. Hx Hiatal hernia. 2. Hx DVT in LE - not on OAC. Worsening LE edema. Check LE Duplex. 3. Hx Hiatal hernia per last EGD, when is unclear. Takes nexium outpatient. 4. Hx migraines - prn fioricet, imitrex. currently no GRACIA. 5. Hx of RA - pt of Dr. Booker. Conitnue Plaquenil, prednisone. 6. Chronic back pain - continue home meds. 7. Possible underlying CKD, mildly elevated creatinine, will trend, possibly somewhat elevated with worsening anemia. DVT ppx: SCDs DC planning: PTOT, increasing weakness. This patient was seen by Yemi Silva PA-C under the supervision of Dr. Biggs <Julianne Jefferson - Last Filed: 07/22/18 08:09> History of Present Illness The patient is a 83 year old F [] Past Medical History Allergies No Known Allergies Allergy (Verified 07/21/18 12:36) - Physical Exam Vital Signs Temp Pulse Resp BP Pulse Ox 98.3 F 71 20 H 138/87 H 100 07/22/18 03:59 07/22/18 03:59 07/22/18 03:59 07/22/18 03:59 07/22/18 03:59 Oxygen Flow Rate (L/min) 2 Oxygen Delivery Method Nasal Cannula Weight: 89.1 kg Body Mass Index (BMI) 39.6 Intake and Output for Last 24 Hours Intake Total 544 / 544 365 / 365 Output Total 300 / 300 550 / 550 Balance 244 / 244 -185 / -185 Microbiology Past 72 Hours 07/21/18 14:30 Stool Occult Blood (WILLIE) - Final Stool Laboratory Tests Past 24 Hrs WBC 5.6 RBC 3.02 L Hgb 7.5 L Hct 26.0 L WBC WBC 5.0 RBC 3.44 L Hgb 6.8 L 8.6 L Assessment/Plan This patient was seen in conjunction with ABBY Siddiqui. I have independently interviewed and examined the patient and reviewed pertinent historical, laboratory, and other data. Please refer to ABBY Siddiqui note for his patient's presentation, findings, and recommendations. I have reviewed and his note and concur with his documentation 83-year-old female with past medical history of iron deficiency anemia, history of DVT, hiatal hernia who is being admitted because of abnormal blood work. Patient had gone to the urgent care 2 days ago with complaints of fatigue, sore throat, shortness of breath. Blood work was taken and patient received a call on the day of admission to come to the emergency department because her hemoglobin was 7.5. Denied any hematochezia or melena or any bleeding from any orifices. She had a colonoscopy about a year ago in the [facility] and this was for iron deficiency anemia. There was no definite source of her bleeding. It was speculated to be related to her hiatal hernia. At the time of being seen, patient denied any complaints except for headache. Denied any dizziness or shortness of breath orthopnea or PND. Admitted to bilateral leg swelling. She has acute on chronic back pain for which she is on [place] at home. Physical Exam: Vitals show temperature of 98.3F, heart rate of 95, blood pressure 141/70, patient was positively orthostatic from lying to sitting. Gen: Morbidly obese, in mild discomfort, pale, not jaundiced CVS:HS I +II, regular, no murmurs RESP: Diminished at lung bases GI: Full, soft nontender, no ballotable organs EXT:bilateral leg edema, worse in the left leg Back: Tenderness over the thoracic and lumbar region. Labs Admitting white cell count was 5.6, hemoglobin 7.5, drop from 10.7 a month ago, platelet count was 288, sodium was 144, potassium 4.4, chloride 111, bicarbonate 26, BUN 16, creatinine 1.46. Patient's iron indices showed iron deficiency anemia Stool for FOBT negative ASSESSMENT: 1. Severe iron deficiency anemia, likely GI loss, general surgery consulted from the ED, Discussed with Dr. Cooper, start patient on clear liquid diet, trend H AND H, obtain records from the [facility] Consider CT of the abdomen and pelvis to look for retroperitoneal bleed if patient continues to lose blood 2. History of hiatal hernia 3. Acute on chronic back pain, will continue on oxycodone and Tylenol as needed 4. History of DVT in the lower extremity, not on around 2 coagulants 5. Migraine headache 6. Rheumatoid arthritis on Plaquenil and prednisone 7. CKD stage III Plan: Admit to PCU, trend H AND H, transfuse if increased less than 7, general surgery consulted, Obtain records from [facility]. Code Visit Inpatient E AND M: [id number] Init Hosp L3 07/21/18 1550 <Electronically signed by Yemi MORA> Date Yemi MORA 07/22/18 0810<Electronically signed by Julianne Jefferson MD> Cosigner Signature: Date (if applicable) Julianne Jefferson MD CC: ABBY Silva; Julianne Jefferson MD; Candice Amado DO Signed CBC W/DIFF, AUTOMATED Collected: 07/22/2018 Status: F Source: JOAN 5:05 [facility] REPOSITORY TYPE CODE TESTS RESULT OUT OF RANGE REFERENCE UNITS LAB L100.1000 4.4-11.0 K/mm3 Normal WBC 5.0 LAB L100.1200 4.2-5.4 M/mm3 Low RBC 3.44 LAB L100.1300 12.0-15.0 g/dl Low HGB 8.6 LAB L100.1400 37-47 % Low HCT 29.7 LAB L100.1500 81-99 fL Normal MCV 86.3 LAB L100.1600 27.0-32.0 pg Low MCH 25.0 LAB L100.1700 32-36 g/gl Low MCHC 29.0 LAB L100.1810 11.6-14.6 % High RDW CV 18.0 LAB L100.1820 35.1-43.9 fl High RDW SD 54.7 LAB L100.1900 150-450 K/mm3 Normal PLT 290 LAB L100.2000 6.2-12.0 fl Normal MPV 8.9 LAB L100.2100 47-70 % Normal NEUT% 54.2 LAB L100.2200 19-41 % Normal LY% 21.0 LAB L100.2300 0-10 % High MONO% 17.8 LAB L100.2400 0-5 % High EO% 5.6 LAB L100.2500 0-1 % High BASO% 1.2 LAB L100.2550 0.0-0.9 % Normal IM GRAN % 0.200 Result Comment: IG% - Immature Granulocytes (promyelocytes, myelocytes and metamyelocytes) > 1% indicates that a LEFT SHIFT is Present. LAB L100.2620 2.0-7.7 X10 3/uL Normal Absolute Neut 2.7 LAB L100.2720 0.83-4.51 X10 3/ul Normal Absolute Lymph 1.05 Performed By: #### L100.0100 #### [facility] [address] [place], [address] BASIC METABOLIC Collected: 07/22/2018 Status: F Source: ARMUCHEE PROFILE (BMP) 5:05 AM [facility] REPOSITORY TYPE CODE TESTS RESULT OUT OF RANGE REFERENCE UNITS LAB L501.0100 74-106 mg/dL Normal GLU 89 Result Comment: Please note revised GLUCOSE reference range effective 2017. LAB L501.1000 7-18 mg/dL Normal BUN 14 LAB L501.1100 0.55-1.02 mg/dL High CREAT,SERUM 1.40 Result Comment: The validity of the calculated GFR AND GFRAA in patients over 70 years has not been determined. Clinical correlation is essential. LAB L501.1110 >60 mL/min Low EST GFR 38 Result Comment: Non- GFR Calc LAB L501.1115 >60 mL/min Low EST GFR - AA 46 Result Comment: GFR Calc LAB L501.1255 ml/min Normal Estimated CRCL 43.58 LAB L501.1300 10-20 RATIO Normal BUN/CRE 10.0 LAB L501.2200 8.5-10 mg/dL Low .1 CA 8.4 LAB L501.5300 136-14 mmol/L Normal 5 NA 145 LAB L501.5600 3.5-5. mmol/L Normal 1 K 4.5 LAB L501.5900 98-107 mmol/L High CL 113 LAB L501.6100 21.0-3 mmol/L Normal 2.0 CO2 25.0 LAB L501.6200 5-15 Normal GAP 7 Performed By: #### L500.2500 #### [facility] [address] [facility] [place], [address] HH, HEMOGLOBIN AND Collected: 07/21/2018 Status: F Source: JOAN HEMATOCRIT 9:15 PM [facility] REPOSITORY TYPE CODE TESTS RESULT OUT OF RANGE REFERENCE UNITS LAB L100.1300 12.0-15.0 g/dl Low HGB 6.8 LAB L100.1400 37-47 % Low HCT 23.0 Performed By: #### L100.0600 #### [facility] [address] [facility] [place], [address] EMERGENCY DEPARTMENT Observed: 07/21/2018 Status: F Source: JOAN SUMMARY 3:12 PM [facility] REPOSITORY [facility] Medical Records Department [address] [place] [address] Emergency Department Summary 07/21/18 1509 MR#: [id number] Acct: [id number] Name: JOLENE AKHTAR Rep #: [id number] : 1935 83 From: Veronica Maurer DO PCP: Candice Amado DO Status: REG ER - ER Visit Summary Date of Service: 07/21/18 Chief Complaint: [Anemia] History of Present Illness: The patient is a 83 F [presents to the emergency department complaint of abnormal labs. Patient states she was seen by primary care physician yesterday for a sore throat and mild cough and she had some blood work done and she was called today and told to come to the emergency department because she was anemic. Patient states that she has been fatigued and generally feels weak. She feels short of breath with activity and exertion. She denies any chest pain. Patient does have a history of anemia in a couple months ago apparently she had to have 2 units of packed red blood cells. Patient states that she has had within the last year colonoscopy in endoscopy but she cannot remember who performed the studies. Patient does have a history of peptic ulcer disease and GERD.] Physical Examination: [HEENT-PERRLA, EOMI. Cranial nerves II through XII grossly intact. TMs clear. Mucous membranes moist. No adenopathy. Cardiovascular-regular rate and rhythm without murmur or ectopy Lungs-clear to auscultation, chest wall stable without crepitus or subcu emphysema Abdomen-normoactive bowel sounds, soft, nontender, no rebound or rigidity, no peritoneal signs. Rectal exam-brown stool that was Hemoccult negative. No masses palpated in the rectal vault. Extremities-intact 4, normal range of motion, normal pulses, atraumatic] Test Results: [CBC with differential obtained showed a white count of 5.6, hemoglobin 7.5, hematocrit 26, platelet 288. Chemistries unremarkable. BUN was 16 and creatinine 1.46. Troponin is less than 0.015. 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 It may contain incorrect words, spelling, and punctuation that were not noted in review of the chart prior to signing ED Disposition - Plan for ED Patient: Chief Complaint: Abn Labs Referrals: Candice Amado DO [Primary Care Provider] - What to do if you have Problems For any increased pain, shortness of breath, bleeding, nausea or vomiting, chest pain, or any unexpected problems, contact your Primary Care Provider. Call [facility] ([phone]) or report to the closest Emergency Room. Call 911 if necessary. 07/21/18 1512 <Electronically signed by Veronica Maurer DO> Date Veronica Maurer DO Cosigner Signature (If Indicated): Date CC: Cadnice Amado DO URINALYSIS, COMPLETE Collected: 07/21/2018 Status: F Source: JOAN 2:50 PM [facility] REPOSITORY Order Comment: Has pt arrived? Y How was Urine Obtained? CLEAN CATCH TYPE CODE TESTS RESULT OUT OF RANGE REFERENCE UNITS LAB L400.3000 Yellow COLOR Normal Yellow LAB L400.3050 Clear Normal CLARITY Clear LAB L400.3200 Normal mg/dl Normal GLUCOSE, UR Normal LAB L400.3300 Negative mg/dL Normal BILIRUBIN URINE Negative LAB L400.3400 Negative mg/dl Normal KETONE UR Negative LAB L400.3465 1.002-1.030 Normal SP.GR. DIPSTX 1.015 LAB L400.3550 5.0 - 8.0 pH UR Normal 6.0 LAB L400.3600 Negative mg/dl PROT Normal DIPSTX Negative LAB L400.3700 Normal mg/dl Normal UROBILI Normal LAB L400.3750 Negative Normal NITRITE UR Negative LAB L400.3780 Negative /ul Normal OCCULT BLOOD-UR Negative LAB L400.3800 Negative /ul High LEUK 25 ESTERASE LAB L400.4050 0-5 /hpf WBC Normal 0-5 SEEN LAB L400.4100 0-5 /hpf 0 Normal RBC-UA SEEN LAB L400.4150 5-10 /hpf SQUAM Normal EPI 0-5 SEEN LAB L400.4300 None Seen /hpf 0 Normal BACTERIA SEEN LAB L400.4350 <or=2+ /hpf 0 Normal MUCUS, URINE SEEN LAB L400.4400 0-5 /lpf Normal HYALINE CAST 0-5 SEEN Performed By: #### L400.0001 #### [facility] [address] [facility] [place], [place], [address] Observed: 07/21/2018 Status: F Source: ARMUCHEE STOOL OCCULT BLOOD 2:30 PM [facility] IFOB REPOSITORY Has pt arrived? Y STOB iFOB Occult Blood Negative Performed By: #### M100.7900 #### [facility] [address] [facility]. [place], [place], [address] CBC W/DIFF, AUTOMATED Collected: 07/21/2018 Status: F Source: [place] 1:05 PM [facility] REPOSITORY TYPE CODE TESTS RESULT OUT OF RANGE REFERENCE UNITS LAB L100.1000 4.4-11.0 K/mm3 Normal WBC 5.6 LAB L100.1200 4.2-5.4 M/mm3 Low RBC 3.02 LAB L100.1300 12.0-15.0 g/dl Low HGB 7.5 LAB L100.1400 37-47 % Low HCT 26.0 LAB L100.1500 81-99 fL Normal MCV 86.1 LAB L100.1600 27.0-32.0 pg Low MCH 24.8 LAB L100.1700 32-36 g/gl Low MCHC 28.8 LAB L100.1810 11.6-14.6 % High RDW CV 18.6 LAB L100.1820 35.1-43.9 fl High RDW SD 56.7 LAB L100.1900 150-450 K/mm3 Normal PLT 288 LAB L100.2000 6.2-12.0 fl Normal MPV 8.6 LAB L100.2100 47-70 % High NEUT% 73.5 LAB L100.2200 19-41 % Low LY% 12.3 LAB L100.2300 0-10 % Normal MONO% 9.5 LAB L100.2400 0-5 % Normal EO% 3.2 LAB L100.2500 0-1 % High BASO% 1.1 LAB L100.2550 0.0-0.9 % Normal IM GRAN % 0.400 Result Comment: IG% - Immature Granulocytes (promyelocytes, myelocytes and metamyelocytes) > 1% indicates that a LEFT SHIFT is Present. LAB L100.2620 2.0-7.7 X10 3/uL Normal Absolute Neut 4.1 LAB L100.2720 0.83-4.51 X10 3/ul Low Absolute Lymph 0.68 Performed By: #### L100.0100 #### [facility] [address] [place] [address]. [place], [place], [address] BASIC METABOLIC Collected: 07/21/2018 Status: F Source: [place] PROFILE (BMP) 1:05 PM [facility] REPOSITORY TYPE CODE TESTS RESULT OUT OF RANGE REFERENCE UNITS LAB L501.0100 74-106 mg/dL Normal GLU 105 Result Comment: Fasting Glucose result from 100 to 125 mg/dL suggests IMPAIRED HOMEOSTASIS per A.D.A. criteria. Please note revised GLUCOSE reference range effective 2017. LAB L501.1000 7-18 mg/dL Normal BUN 16 LAB L501.1100 0.55-1.02 mg/dL High CREAT,SERUM 1.46 Result Comment: The validity of the calculated GFR AND GFRAA in patients over 70 years has not been determined. Clinical correlation is essential. LAB L501.1110 >60 mL/min Low EST GFR 36 Result Comment: Non- GFR Calc LAB L501.1115 >60 mL/min Low EST GFR - AA 44 Result Comment: GFR Calc LAB L501.1255 ml/min Normal Estimated CRCL 38.29 LAB L501.1300 10-20 RATIO Normal BUN/CRE 11.0 LAB L501.2200 8.5-10 mg/dL Normal .1 CA 8.9 LAB L501.5300 136-14 mmol/L Normal 5 NA 144 LAB L501.5600 3.5-5. mmol/L Normal 1 K 4.4 LAB L501.5900 98-107 mmol/L High CL 111 LAB L501.6100 21.0-3 mmol/L Normal 2.0 CO2 26.0 LAB L501.6200 5-15 Normal GAP 7 Performed By: #### L500.2500, L501.4010 #### [facility] [address] [facility]. [place], [place], [address] TROPONIN-I Collected: 07/21/2018 Status: F Source: [place] 1:05 PM [facility] REPOSITORY TYPE CODE TESTS RESULT OUT OF RANGE REFERENCE UNITS LAB L501.4010 <0.045 ng/mL Normal < 0.015 TROPONIN-I Result Comment: TROPONIN-I EXPECTED VALUES <0.045 Negative 0.045 - 0.590 Consistent with Cardiac Damage > OR = 0.600 Critical Value Not every elevated troponin is indicative of ID. These values should be used with clinical judgement in examining the patient's clinical picture for diagnosis. To establish a diagnosis of ID versus myocardial injury, there must be a demonstrated rise and/or fall in the troponin values, in addition to ischemic symptoms, EKG changes, new regional wall motion abnormality, and/or angiographical evidence. PLEASE NOTE: REFERENCE RANGES EDITED 17 Performed By: #### L500.2500, L501.4010 #### [facility] [address] [place], [place], [address] TYPE AND SCREEN Collected: 07/21/2018 Status: F Source: [place] 1:05 PM [facility] REPOSITORY Order Comment: Reason for Type AND Screen/Red Cells: ANEMIA TYPE CODE TESTS RESULT OUT OF RANGE REFERENCE UNITS LAB B10.0800 A Normal BLOOD TYPE GEL POSITIVE LAB B100.4000 Normal Antibody NEGATIVE Screen Performed By: #### B101.7450 #### [facility] [address] [facility] [place], [address] IRON+IRON BINDING Collected: 07/21/2018 Status: F Source: [facility] 1:05 PM [facility] REPOSITORY TYPE CODE TESTS RESULT OUT OF RANGE REFERENCE UNITS LAB L503.6075 250-450 ug/dL TIBC Normal 411 LAB L503.6150 50-170 ug/dL Low IRON 16 LAB L503.6250 15.0-55.0 % Low IRON SATURATION 3.9 Performed By: #### L503.6030, L503.6550 #### [facility] [facility] [place], [address] FERRITIN Collected: 07/21/2018 Status: F Source: [place] 1:05 PM [facility] REPOSITORY TYPE CODE TESTS RESULT OUT OF RANGE REFERENCE UNITS LAB L503.6550 8-252 ng/mL Normal FERRITIN 18 Performed By: #### L503.6030, L503.6550 #### [facility] [place], [address] RC Collected: 07/21/2018 Status: F Source: [place] 1:05 PM [facility] REPOSITORY TYPE CODE TESTS RESULT OUT OF REFERENCE UNITS RANGE LAB U100.0000 [id number] TRANSFUSED PRODUCT: T AND S with Crossmatch, Red Cells COUNT: 1 Performed By: #### U100.0000 #### [facility] - refer to report for specific site CBC W/DIFF, AUTOMATED Collected: 06/12/2018 Status: F Source: [place] 12:41 PM [facility] REPOSITORY TYPE CODE TESTS RESULT OUT OF RANGE REFERENCE UNITS LAB L100.1000 4.4-11.0 K/mm3 Normal WBC 8.3 LAB L100.1200 4.2-5.4 M/mm3 Normal RBC 4.33 LAB L100.1300 12.0-15.0 g/dl Low HGB 10.7 LAB L100.1400 37-47 % Normal HCT 37.3 LAB L100.1500 81-99 fL Normal MCV 86.1 LAB L100.1600 27.0-32.0 pg Low MCH 24.7 LAB L100.1700 32-36 g/gl Low MCHC 28.7 LAB L100.1810 11.6-14.6 % High RDW CV 20.7 LAB L100.1820 35.1-43.9 fl High RDW SD 64.7 LAB L100.1900 150-450 K/mm3 Normal PLT 279 LAB L100.2000 6.2-12.0 fl Normal MPV 9.3 LAB L100.2100 47-70 % High NEUT% 70.3 LAB L100.2200 19-41 % Low LY% 16.1 LAB L100.2300 0-10 % High MONO% 10.3 LAB L100.2400 0-5 % Normal EO% 2.4 LAB L100.2500 0-1 % Normal BASO% 0.5 LAB L100.2550 0.0-0.9 % Normal IM GRAN % 0.400 Result Comment: IG% - Immature Granulocytes (promyelocytes, myelocytes and metamyelocytes) > 1% indicates that a LEFT SHIFT is Present. LAB L100.2620 2.0-7.7 X10 3/uL Absolute Neut Normal 5.8 LAB L100.2720 0.83-4.51 X10 3/ul Absolute Lymph Normal 1.33 LAB L100.7300 ANISO Normal 1+ LAB L100.7600 HYPOCHROMASIA Normal 1+ Performed By: #### L100.0100 #### [facility] [place], [address] COMPREHENSIVE METABOLIC Collected: 06/12/2018 Status: F Source: [facility] 12:41 PM [facility] REPOSITORY TYPE CODE TESTS RESULT OUT OF RANGE REFERENCE UNITS LAB L501.0100 74-106 mg/dL Normal GLU 95 Result Comment: Please note revised GLUCOSE reference range effective 2017. LAB L501.1000 7-18 mg/dL High BUN 19 LAB L501.1100 0.55-1.02 mg/dL High CREAT,SERUM 1.53 Result Comment: The validity of the calculated GFR AND GFRAA in patients over 70 years has not been determined. Clinical correlation is essential. LAB L501.1110 >60 mL/min Low EST GFR 35 Result Comment: Non- GFR Calc LAB L501.1115 >60 mL/min Low EST GFR - AA 42 Result Comment: GFR Calc LAB L501.1300 10-20 RATIO Normal BUN/CRE 12.4 LAB L501.1500 6.4-8.2 g/dL T Normal PROT 6.7 LAB L501.1800 3.2-5.0 g/dL Normal ALB 3.2 LAB L501.1950 2.2-4.2 g/dL Normal GLOB 3.5 LAB L501.2000 0.9-2.4 RATIO Normal A/G 0.9 LAB L501.2200 8.5-10.1 mg/dL CA Normal 9.4 LAB L501.4100 15-37 U/L Normal AST 16 LAB L501.4305 45-117 U/L Normal ALK P 99 LAB L501.4405 13-56 U/L Normal ALT 21 LAB L501.4600 0.20-1.00 mg/dL T Normal BILI 0.40 LAB L501.5300 136-145 mmol/L NA Normal 144 LAB L501.5600 3.5-5.1 mmol/L K Normal 4.4 LAB L501.5900 98-107 mmol/L High CL 110 LAB L501.6100 21.0-32.0 mmol/L Normal CO2 25.0 LAB L501.6200 5-15 Normal GAP 9 Performed By: #### L500.4050 #### [facility] [address] [facility]. [place], [place], [id number] TYPE AND SCREEN Collected: 05/22/2018 Status: F Source: [place] 2:53 PM [facility] REPOSITORY Order Comment: CMV NEG?* N Give When? Type AND Hold Irradiated? N Leukodepleted? Y Reason for Type AND Screen/Red Cells: ANEMIA TYPE CODE TESTS RESULT OUT OF RANGE REFERENCE UNITS LAB B10.0800 A Normal BLOOD TYPE GEL POSITIVE LAB B100.4000 Normal Antibody NEGATIVE Screen Performed By: #### B101.7450 #### [facility] [address] [facility]. [place], [place], [address] RC Collected: 05/22/2018 Status: F Source: JOAN 2:53 PM [facility] REPOSITORY TYPE CODE TESTS RESULT OUT OF REFERENCE UNITS RANGE LAB U100.0000 [id number] TRANSFUSED PRODUCT: T AND S with Crossmatch, Red Cells COUNT: 2 Performed By: #### U100.0000 #### [facility] - refer to report for specific site CREATININE FINGERSTICK Collected: 03/12/2018 Status: F Source: JO[place] 1:40 PM [facility] REPOSITORY TYPE CODE TESTS RESULT OUT OF REFERENCE UNITS RANGE LAB L9100.0210 0.55-1.02 mg/dL High CREATININE WB 1.2 Performed By: #### L9100.0200 #### [facility] Point of Care [address] [facility] [place] [address] CTA CHEST W/WO Observed: 03/12/2018 Status: F Source: [place] CONTRAST 1:33 PM [facility] REPOSITORY [facility] Imaging Services [address] [facility] [place] [address] CTA Chest W/WO Contrast MR#: [id number] Acct: [id number] Name: JOLENE AKHTAR Rep #: [id number] : 1935 F 82 From: Roxy Hannah MD PCP: Candice Amado DO Status: REG CLI Study: CTA Chest W/WO Contrast Date of Exam: 03/12/18 Exam# [id number] Ordering Dr: Candice Amado DO STUDY: CTA CHEST REASON FOR EXAM: Female, 82 years old. Lung nodule RADIATION DOSAGE (If Supplied By Facility): CTDIvol = ( 15.06 ) mGy, DLP = ( 691.58 ) mGycm TECHNIQUE: The examination was performed with the intravenous administration of 100 ml of Isovue 370 contrast material. Post-processing of the angiographic images was performed, with multiplanar reformation and 3D reconstruction. Individualized dose optimization techniques were used for this CT. COMPARISON: March 22, 2017. FINDINGS: Normal enhancement of the main pulmonary artery and right and left pulmonary arteries. Normal enhancement of the bilateral peripheral pulmonary arteries. There is no demonstrated pulmonary embolism. There is atherosclerotic calcification of the aortic arch and descending thoracic aorta. There is no demonstrated aortic dissection. There are calcifications of the coronary arteries. There is a large hiatal hernia. Normal hilar regions. Normal visualized trachea and bronchi. Within the right middle lobe there is a stable 8.4 mm pulmonary nodule. There is grossly stable bibasilar atelectasis and/or scarring present. There is a stable 3.8 mm nodule at the left lower lobe visualized as well. Normal chest wall structures. There are degenerative changes of thoracic spine. Normal visualized upper abdomen. CT/CTA Chest W/WO Contrast IMPRESSION: Stable 8.4 mm right middle lobe nodule. Recommend follow- up in 12 months. Atherosclerosis. Hiatal hernia. Electronically Signed: Roxy Hannah MD at 21:28 EDT Tel , Service support , CC: Candice Amado DO Dental Treatment Coordinator: Signed INITAL EVALUATION (1) Observed: 03/12/2018 Status: F Source: [place] - 11:52 AM [facility] REPOSITORY [facility] [address] [place] [address]. [address] [place], [place] [address] Fax REHABIL[facility]ATION SERVICES INITIAL EVALUATION MR#: [id number] Acct: [id number] Name: JOLENE AKHTAR Rep #: [id number] : 1935 82 From: Fernie Coronado DPT Referring Dr.: Eris Jimenez M.D. Status: REG RCR Insurance: MEDICARE PART A B ANTH Patient's Visit Information JOLENE AKHTAR is a 82 year old F referred to Physical Therapy by Eris Jimenez MD with a diagnosis of Low back pain. Date of Evaluation: 02/26/18 Physical Therapist: Fernie Coronado - Visit Plan Frequency: 1x/Week Duration: 4-6 Weeks Plan: Start with mat neutral spine core strengthening, HS stretching. Progress gym BLE strengthening, progressing to independence. - Subjective Subjective: Pt. is here today for her initial evaluation with diagnosis of low back pain. This PT is familar with this patient. Pt. has had chronic low back pain for years. Pt. recently had injections into her back with reports of mild relief in symptoms. Pt. continues to reports 5-6/10 pain in low back that increases with walking, sitting for too long and lying down. Pt. reports nothing really alleviates her pain. Pt. uses rollator for mobility in home and community. She described fatigue as limiting factor with most mobility, but also low back and anterior leg pain. Pt. reports being sedentary for most time in home. Pt. is hopeful to get exercises for her legs and core stability in order to start gym exercises safety to reduce strain applied to lumbar spine. - Pain Lumbar spine Pain Intensity (Out of 10): 5 Pain Intensity Range: 2, 7 anterior BLEs Pain Intensity (Out of 10): 5 Pain Intensity Range: 2, 5, 8 - Objective POSTURE: PT. has flexed posture in sitting and standing. Rounded shoulders, FH posture. Anterior tilt of pelvis. PALPATION: Pt. has increased tenderness of bilateral erector spinea of lumbar spine, Pt. has no anterior thigh pain. NEUROLOGICAL: Pt. has normal sensation throughout bilaterl LEs. Pt. has 2+ patellar and achilles DTR bilaterally. Pt. is able to stand and raise on heels and toes with use of balance aide, no weakness noted. ROM: lumbar spine- flexion mod loss increase NW, ext max loss increase NW, SB R mod loss increase NW, SB L mod loss increase NW, rotaton mod loss bilat increase NW. Pt. has tight HS noted bilaterally, and tight hip flexors noted bilaterally. Pt. has normal hip ROM bilaterally. MMT: RLE- 4/5 throughout; except hip flexors 4-/5, abd hip abd 4-/5. LLE- 4/5 throughout; except hip flexors 4-/5, and hip abd 4-/5. Core strength- poor. GAIT: Pt. ambulates rollator for all ambulation. Pt. ambulated 258ft. with rollator with flexed posture. Pt. reports increased fatigue as limiting factor with gait. Pt. reports increased low back pain and leg pain as well. - Special Tests L/S Slump test left side: Negative L/S Slump test right side: Negative L/S Left Straight Leg Raise: Negative L/S Right Straight Leg Raise: Negative Lumbar Standing: Flexion - Mechanical Response: No effect Lumbar Standing: Flexion - Symptoms During Testing: Decreases Lumbar Standing: Flexion - Symptoms After Testing: No better Lumbar Standing: Extension - Mechanical Response: No effect Lumbar Standing: Extension - Symptoms During Testing: Increases Lumbar Standing: Extension - Symptoms After Testing: No worse Lumbar Standing: Right Side Glides - Mechanical Response: No effect Lumbar Standing: Right Side Pharr - Symptoms During Testing: Increases Lumbar Standing: Right Side Pharr - Symptoms After Testing: No worse Lumbar Standing: Left Side Pharr - Mechanical Response: No effect Lumbar Standing: Left Side Pharr - Symptoms During Testing: Increases Lumbar Standing: Left Side Pharr - Symptoms After Testing: No worse Lumbar Lying: Flexion - Mechanical Response: No effect Lumbar Lying: Flexion - Symptoms During Testing: Increases Lumbar Lying: Flexion - Symptoms After Testing: No worse - Goals Goal 1:: Pt. to be I with HEP. Goal Time Frame: 4-6 Weeks Goal 2:: Pt. to have decreased low back pain to 3/10 pain with all functional mobility. Goal Time Frame: 4-6 Weeks Goal 3:: Pt. to ambulate 500+ feet with rollator GLENN without LOB with 2-3/10 pain in lumbar spine/BLEs. Goal Time Frame: 4-6 Weeks Goal 4:: Pt. to have increased BLE strength by 1/2 grade of all effected musculature. Goal Time Frame: 4-6 Weeks Goal 5:: Pt. to be I with gym exercises of BLE and core strengthening. - Rehabilitation Potential Physical Therapy Diagnosis: Pt. has signs and symptoms consistent with low back pain, most likely stenotic changes. Pt. has overall decreased muscle strength, most notably in her legs and core. Pt. also has anterior tilted pelvis and generalized flexed posture. Pt. would benefit from PT to increase BLE/core strength. Plan is to show pt. neutral spine core strengthening, and progress gym exercises in order for patient to complete independently. Rehabilitation Potential: Fair - Anticipated Interventions Patient/Client Instruction: Educate patient on: Condition, Plan of Care, Risk Factors, Benefits of Fitness Program For the Purpose of:: To improve safety, To improve health and function, To foster healthy habits, To improve decision making, To facilitate caregiver knowledge, To improve self management, To prevent re-injury, To improve ability to perform tasks related to life management, To improve tolerance to ADL's Therapeutic Exercise to Include: Strength training, Power training, Endurance training, Body mechanics, Postural training, Flexibilty training, Passive ROM, Active ROM, Dynamic Lumbar Stabilization, Vicky Exercises For the Purpose of:: To decrease pain, To decrease swelling/inflammation, To increase ROM, To improve nutrient delivery to tissue, To increase oxygenation perfusion, To improve muscle performance and motor function, To improve health of tissue, To decrease soft tissue restriction, To increase flexibility/ROM, To improve endurance TENS: Yes IF ES: Yes For the Purpose of:: To decrease pain, To increase ROM Thank you for the opportunity to evaluate your patient. For Medicare and Medicare HMO plans, please review the plan of care and approve it. It will need to be FAXED BACK to us at [phone] for Medicare purposes. Please let me know if there are questions or concerns regarding this plan of care. Physician Signature: Date: <Electronically signed by Fernie Coronado DPT> 03/12/18 1152 CC: Candice Amado DO; Eris Jimenez M.D. CLS Signed For Medicare only, by signing this I certify the plan of care. Physicians Signature Date OPERATIVE REPORT Observed: 03/09/2018 Status: F Source: JOAN 2:32 PM [facility] REPOSITORY [facility] Medical Records Department [address] [place] [address] Operative Report 03/09/18 1424 MR#: [id number] Acct: [id number] Name: JOLENE AKHTAR Rep #: [id number] : 1935 82 From: Eris Jimenez MD PCP: Candice Amado DO Status: REG SDC Y Location: [place] [address] Problem List (1) Spondylosis of lumbar region without myelopathy or radiculopathy Status: Acute Report of Operation Date of Procedure: 03/09/18 Pre-Operative Diagnosis: 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 Patient placed in the prone position, pressure points were padded, patient was ready from the nursing and the anesthesia team. After identification of the side and the target area for the block under guided fluoroscopy, the entry site was marked with marking pen. I used Betadine for sterilization of the skin, sterile draping were applied. Using 25-gauge needle to infiltrate the skin with local anesthesia using preservative-free lidocaine 1 % injected 2.5 mL at each site of entry. Using oblique fluoroscopy, accessed the Left medial nerve branch supplying the Left lumbar facets L3-4, L4-5, L5-S1 using 22-gauge spinal needle. After confirmation of appropriate needle placement to the targeted area with AP and lateral fluoroscopy, injected 2.5 mL mixture of preservative-free Marcaine 0.25% and Kenalog [20] mg at each site. Greer was removed, pressure dressing were applied. Patient tolerated the procedure well and was taken to the recovery. Type of Anesthesia:: Local MAC, Local Estimated Blood Loss (mL): None 03/09/18 1432 <Electronically signed by Eris Jimenez MD> Date Eris Jimenez MD CC: Candice Amado DO; Eris Jimenez M.D. 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 Reason(s) for Visit for Discharge Instructions: Facet joints block You will use the following diet at home:: No restrictions Discharge Activity: Return to Normal Activity Return to work on:: 03/12/18 May shower in (days): 1 December resume sexual activity in: No Restrictions Weight Bearing Status: Weight bearing as tolerated Call your doctor if your incision/area has: Increased Pain/ Swelling Call your doctor if you observe: Uncontrolled pain Suture Line Care: Avoid Pulling/Pushing, Avoid Pinching/Bending Change Dressing in (Days):: 1 Remove Dressing in (days):: 1 Cleanse incision/area with: Soap AND Water Allergies/Adverse Reactions: Allergies No Known Allergies Allergy (Verified 09/20/17 15:56) Medications to take at Discharge Butalb/Acetaminophen/Caffeine [Fioricet 50-300-40 mg Capsule] 1 each PO Q4H PRN PRN 02/16/14 Diphenoxylate HCl/Atropine [Lomotil 2.5-0.025 mg Tablet] 1 each PO TID PRN PRN 02/16/14 Duloxetine Hcl [Cymbalta] 60 mg PO BID 02/16/14 Esomeprazole Mag Trihydrate [Nexium] 40 mg PO DAILY 02/16/14 Zolpidem Tartrate [Ambien] 10 mg PO QHS PRN PRN 02/16/14 Atenolol [Tenormin (beta Tyler)] 25 mg PO BID 06/09/15 Hydroxychloroquine [Plaquenil] 200 mg PO BIDCM 06/09/15 Ropinirole HCl [Requip] 0.5 mg PO QHS 06/09/15 Sumatriptan Succinate [Imitrex] 100 mg PO .X1 PRN MDD MIGRAINE 06/09/15 Gabapentin [Neurontin] 100 mg PO BID 09/20/16 Gabapentin [Neurontin] 300 mg PO QHS 09/20/16 Iron Carbonyl [Feosol] 65 mg PO BID 04/19/17 Lidocaine/Transparent Dressing [Lidocaine 4% Kit] 1 each TP BID PRN 04/19/17 Prednisone 10 mg PO PRN PRN 04/19/17 Multivitamins,Therapeutic [Multivitamin] 1 tablet PO DAILY 01/29/18 Hydrocodone/Acetaminophen [[place] 5-325 Tablet] 1 each PO BID PRN PRN 03/09/18 Primary Care Physician: Candice Amado DO [Primary Care Provider] - Test Results: Test results from this visit will be discussed in further detail at your follow-up appointment, if applicable. Please Follow Up With: Eris Jimenez MD 03/09/18 1424 <Electronically signed by Eris Jimenez MD> Date Eris Jimenez MD CC: Candice Amado DO LUMBAR SPINE 2 OR 3 Observed: 03/09/2018 Status: F Source: [place] VIEWS 1:09 AM [facility] REPOSITORY [facility] Imaging Services [address] [place] [id number] Lumbar Spine 2 or 3 Views MR#: [id number] Acct: [id number] Name: JOLENE AKHTAR Rep #: [id number] : 1935 F 82 From: Roxy Hannah MD PCP: Candice Amado DO Status: [facility] Study: Lumbar Spine 2 or 3 Views Date of Exam: 03/09/18 Exam# [id number] Ordering Dr: Eris Jimenez MD STUDY: X-RAY - LUMBAR SPINE REASON FOR EXAM: Female, 82 years old. Lumbar block L3-S1 TECHNIQUE: 2 view(s) of the lumbar spine were obtained. COMPARISON: None FINDINGS: Two intraoperative images of the lumbar spine were submitted. There are bilateral pedicle screws at L4, L5 and S1. There is evidence of prior laminectomies at these levels as well. There are posterior spinal markers noted from L3/L4 to the sacrum. RAD/Lumbar Spine 2 or 3 Views IMPRESSION: Posterior spinal markers visualized L3/L4 to the sacrum. Please refer to the intraoperative report for further discussion. Electronically Signed: Roxy Hannah MD at 16:01 EDT Tel , Service support , CC: Candice Amado DO; Eris Jimenez M.D. Dental Treatment Coordinator: Signed CHEST WITHOUT Observed: 02/06/2018 Status: F Source: [place] CONTRAST 8:05 AM [facility] REPOSITORY [facility] Imaging Services [address] [place] [address] Chest without Contrast MR#: [id number] Acct: [id number] Name: JOLENE AKHTAR Rep #: [id number] : 1935 F 82 From: Lyle Marks MD PCP: Candice Amado DO Status: REG CLI Study: Chest without Contrast Date of Exam: 02/06/18 Exam# [id number] Ordering Dr: Candice Amado DO STUDY: CT CHEST WITHOUT CONTRAST REASON FOR EXAM: Female, 82 years old. ABNORMAL CXR RADIATION DOSAGE (If Supplied By Facility): CTDIvol = ( 24.18 ) mGy, DLP = ( 812.16 ) mGycm TECHNIQUE: Transaxial imaging was performed without the administration of intravenous contrast material. Individualized dose optimization techniques were used for this CT. COMPARISON: CR Chest Jan 24 2018 3:51pm and CT of 8.16.17 FINDINGS: There is no pneumothorax. There are interstitial fibrotic changes of the lungs. There are degenerative changes of the shoulders. There is no demonstrated pleural abnormality. There are calcifications of the coronary arteries. Normal mediastinum. Normal hilar regions. Normal pulmonary arteries. There is atherosclerotic calcification of the aortic arch with tortuosity and elongation of the aortic arch and descending thoracic aorta. There are multi-level degenerative changes of the thoracic spine. Large hiatal hernia. Gallbladder is not visualized. CT/Chest without Contrast IMPRESSION: There is mild peripheral pulmonary fibrosis. Electronically Signed: Lyle Makrs MD at 19:02 EDT , Service support , CC: Candice Amado DO Dental Treatment Coordinator: Signed HH, HEMOGLOBIN AND Collected: 01/30/2018 Status: F Source: [place] HEMATOCRIT 2:44 PM [facility] REPOSITORY TYPE CODE TESTS RESULT OUT OF RANGE REFERENCE UNITS LAB L100.1300 12.0-15.0 g/dl Low HGB 10.5 LAB L100.1400 37-47 % Low HCT 34.1 Performed By: #### L100.0600 #### [facility] [place], [address] TYPE AND SCREEN Collected: 01/27/2018 Status: F Source: [place] 8:12 AM [facility] REPOSITORY Order Comment: CMV NEG?* N Give When? 01/29/18 Irradiated? N Leukodepleted? Y Reason for Type AND Screen/Red Cells: ANEMIA TYPE CODE TESTS RESULT OUT OF RANGE REFERENCE UNITS LAB B10.0800 A Normal BLOOD TYPE GEL POSITIVE LAB B100.4000 Normal Antibody NEGATIVE Screen Performed By: #### B101.7450 #### [facility] [address] [place], [address] Collected: 01/27/2018 Status: F Source: [place] 8:12 AM [facility] REPOSITORY TYPE CODE TESTS RESULT OUT OF REFERENCE UNITS RANGE LAB U100.0000 [id number] TRANSFUSED PRODUCT: T AND S with Crossmatch, Red Cells COUNT: 2 Performed By: #### U100.0000 #### [facility] - refer to report for specific site CHEST PA AND LATERAL Observed: 01/24/2018 Status: F Source: [place] 3:44 PM [facility] REPOSITORY [facility] Imaging Services [address] [place] [address] Chest PA and Lateral MR#: [id number] Acct: [id number] Name: JOLENE AKHTAR Rep #: [id number] : 1935 F 82 From: Tod Henderson MD PCP: Candice Amado DO Status: REG CLI Study: Chest PA and Lateral Date of Exam: 01/24/18 Exam# [id number] Ordering Dr: Candice Amado DO STUDY: X-RAY CHEST REASON FOR EXAM: Female, 82 years old. Dyspnea TECHNIQUE: PA and lateral views of the chest. COMPARISON: None. FINDINGS: Mild prominence of interstitial markings throughout both lungs, unchanged. No confluent airspace infiltrate. No pleural effusion or pneumothorax. Mild cardiomegaly. Moderate-sized hiatal hernia. Normal visualized pulmonary arteries. There is atherosclerotic calcification of the aortic arch. There are diffuse degenerative changes of the visualized thoracic spine. Normal visualized ribs, clavicles, and shoulders. There is no demonstrated abnormality of the visualized soft tissue structures of the upper abdomen. RAD/Chest PA and Lateral IMPRESSION: 1. Chronic interstitial change, potentially representing sequelae from chronic edema. 2. Mild cardiomegaly. 3. Moderate-sized hiatal hernia. Electronically Signed: Tod Henderson MD at 3:16 EDT Tel , Service support , CC: Candice Amado DO Dental Treatment Coordinator: Signed COMPREHENSIVE METABOLIC Collected: 12/08/2017 Status: F Source: JOAN RAYMUNDO 3:18 PM [facility] REPOSITORY Order Comment: DR BOOKER ORDERED: CBCD, CMP DR OLIVARES ORDERED: CARMELO TYPE CODE TESTS RESULT OUT OF RANGE REFERENCE UNITS LAB L501.0100 74-106 mg/dL Normal GLU 86 Result Comment: Please note revised GLUCOSE reference range effective 2017. LAB L501.1000 7-18 mg/dL High BUN 20 LAB L501.1100 0.55-1.02 mg/dL High CREAT,SERUM 1.24 Result Comment: The validity of the calculated GFR AND GFRAA in patients over 70 years has not been determined. Clinical correlation is essential. LAB L501.1110 >60 mL/min Low EST GFR 44 Result Comment: Non- GFR Calc LAB L501.1115 >60 mL/min Low EST GFR - AA 53 Result Comment: GFR Calc LAB L501.1300 10-20 RATIO Normal BUN/CRE 16.1 LAB L501.1500 6.4-8.2 g/dL Low T PROT 6.2 LAB L501.1800 3.2-5.0 g/dL Low ALB 2.9 LAB L501.1950 2.2-4.2 g/dL Normal GLOB 3.3 LAB L501.2000 0.9-2.4 RATIO Normal A/G 0.9 LAB L501.2200 8.5-10.1 mg/dL CA Normal 8.9 LAB L501.4100 15-37 U/L Normal AST 15 LAB L501.4305 45-117 U/L Normal ALK P 79 LAB L501.4405 13-56 U/L Normal ALT 25 LAB L501.4600 0.20-1.00 mg/dL T Normal BILI 0.20 LAB L501.5300 136-145 mmol/L NA Normal 141 LAB L501.5600 3.5-5.1 mmol/L K Normal 4.7 LAB L501.5900 98-107 mmol/L High CL 109 LAB L501.6100 21.0-32.0 mmol/L Normal CO2 26.0 LAB L501.6200 5-15 Normal GAP 6 Performed By: #### L500.4050, L503.6550 #### [facility] [address] [place], [place], [address] FERRIT[place] Collected: 12/08/2017 Status: F Source: JOAN 3:18 PM [facility] REPOSITORY Order Comment: DR BOOKER ORDERED: CBCD, CMP DR OLIVARES ORDERED: CARMELO TYPE CODE TESTS RESULT OUT OF RANGE REFERENCE UNITS LAB L503.6550 8-252 ng/mL Normal FERRITIN 66 Performed By: #### L500.4050, L503.6550 #### [facility] [address] [place], [address] CBC W/DIFF, AUTOMATED Collected: 12/08/2017 Status: C Source: JOAN 3:18 PM [facility] REPOSITORY Order Comment: DR BOOKER ORDERED: CBCD, CMP DR OLIVARES ORDERED: CARMELO TYPE CODE TESTS RESULT OUT OF RANGE REFERENCE UNITS LAB L100.1000 4.4-11.0 K/mm3 7.2 Normal WBC LAB L100.1200 4.2-5.4 M/mm3 Low 3.17 RBC LAB L100.1300 12.0-15.0 g/dl Low 8.7 HGB LAB L100.1400 37-47 % Low 30.0 HCT LAB L100.1500 81-99 fL 94.6 Normal MCV LAB L100.1600 27.0-32.0 pg 27.4 Normal MCH LAB L100.1700 32-36 g/gl Low 29.0 MCHC LAB L100.1810 11.6-14.6 % Test Normal RDW not performed CV LAB L100.1820 35.1-43.9 fl Test Normal RDW not performed SD LAB L100.1900 150-450 K/mm3 338 Normal PLT LAB L100.2000 6.2-12.0 fl 9.2 Normal MPV LAB L100.2100 47-70 % 62.3 Normal NEUT% LAB L100.2200 19-41 % Low 16.3 LY% LAB L100.2300 0-10 % High 13.0 MONO% LAB L100.2400 0-5 % High 6.4 EO% LAB L100.2500 0-1 % 1.0 Normal BASO% LAB L100.2550 0.0-0.9 % High 1.000 IM GRAN % Result Comment: IG% - Immature Granulocytes (promyelocytes, myelocytes and metamyelocytes) > 1% indicates that a LEFT SHIFT is Present. LAB L100.2620 2.0-7.7 X10 3/uL 4.5 Normal Absolute Neut LAB L100.2720 0.83-4.51 X10 3/ul 1.17 Normal Absolute Lymph LAB L100.4400 0-5 % Test Normal NRBC,MANUAL CT not performed Result Comment: RARE NRBC NOTED ON SLIDE REVIEW AMENDED REPORT 12/08/17 1806 NRBC,MANUAL CT previously reported as: % RARE NRBC NOTED ON SLIDE REVIEW LAB L100.4500 SMEAR COMMENT Normal SCANNED LAB L100.5500 ADEQ PLT EST Normal ADEQUATE LAB L100.7300 ANISO 4+ Normal LAB L100.7500 POLYCHROMASIA 1+ Normal LAB L100.7800 MACROCYTE 1+ Normal LAB L100.8700 TEAR DROP Normal RARE LAB L100.8900 STOMATOCYTE Normal RARE Performed By: #### L100.0100 #### [facility] [address] [facility]. [place], [place], [id number] CBC-COMPLETE BLOOD CNT Collected: 11/15/2017 Status: F Source: [place] NO DIFF 4:48 PM [facility] REPOSITORY TYPE CODE TESTS RESULT OUT OF RANGE REFERENCE UNITS LAB L100.1000 4.4-11.0 K/mm3 Normal WBC 10.3 LAB L100.1200 4.2-5.4 M/mm3 Low RBC 3.68 LAB L100.1300 12.0-15.0 g/dl Low HGB 8.8 LAB L100.1400 37-47 % Low HCT 30.0 LAB L100.1500 81-99 fL Normal MCV 81.5 LAB L100.1600 27.0-32.0 pg Low MCH 23.9 LAB L100.1700 32-36 g/gl Low MCHC 29.3 LAB L100.1810 11.6-14.6 % High RDW CV 19.8 LAB L100.1820 35.1-43.9 fl High RDW SD 56.1 LAB L100.1900 150-450 K/mm3 Normal PLT 329 LAB L100.2000 6.2-12.0 fl Normal MPV 9.3 Performed By: #### L100.0500 #### [facility] [address] [facility]. [place], [place], [id number] IRON Collected: 11/15/2017 Status: F Source: [place] 4:48 PM [facility] REPOSITORY TYPE CODE TESTS RESULT OUT OF RANGE REFERENCE UNITS LAB L503.6150 50-170 ug/dL Low IRON 20 Performed By: #### L503.6150, L503.6550 #### [facility] [address] [place], [address] F[place]ITIN Collected: 11/15/2017 Status: F Source: [place] 4:48 PM [facility] REPOSITORY TYPE CODE TESTS RESULT OUT OF RANGE REFERENCE UNITS LAB L503.6550 8-252 ng/mL Normal FERRITIN 15 Performed By: #### L503.6150, L503.6550 #### [facility] [address] [place], [address] CHEST PA AND LATERAL Observed: 10/24/2017 Status: F Source: [place] 3:18 PM [facility] REPOSITORY [facility] Imaging Services [address] [facility] [address] Chest PA and Lateral MR#: [id number] Acct: [id number] Name: JOLENE AKHTAR Rep #: [id number] : 1935 F 82 From: Stef Mendez DO PCP: Candice Amado DO Status: REG CLI Study: Chest PA and Lateral Date of Exam: 10/24/17 Exam# [id number] Ordering Dr: Candice Amado DO STUDY: X-RAY CHEST REASON FOR EXAM: Female, 82 years old. Cough and congestion TECHNIQUE: PA and lateral views of the chest. COMPARISON: 09/20/2017 FINDINGS: Large hiatal hernia with air-fluid level again noted. The lungs are clear and expanded. There is no demonstrated pleural abnormality. Normal size heart. Normal mediastinum and georgi. Normal visualized pulmonary arteries. Normal visualized aortic arch and descending thoracic aorta. Normal visualized thoracic spine. Normal visualized ribs, clavicles, and shoulders. There is no demonstrated abnormality of the visualized soft tissue structures of the upper abdomen. RAD/Chest PA and Lateral IMPRESSION: Clear lungs. Stable large hiatal hernia with air-fluid level Electronically Signed: Stef Mendez DO at 16:03 EDT Tel , Service support , CC: Candice Aneudy BLACK Dental Treatment Coordinator: Signed CNDS Observed: 09/22/2017 Status: COMPLETED Source: [place] 12:38 PM CLINIC OTHER CAMPUS REPOSITORY HNO ID: [id number] Author: Angy ([facility]) [place] Service: Hospital Medicine Author Type: Nurse Practitioner Type: Discharge Summaries Filed: 09/22/2017 12:40 PM Note Text: Attestation signed by Ying Brody at 09/22/2017 12:44 PM Attending Note I have personally performed a face to face assessment of the patient and have reviewed the PA/REALTY LOAN SPECIALIST note. My morrison findings include: History is as noted. BP (!) 147/48 Pulse 88 Temp 36.9 ?C (98.4 ?F) (Oral) Resp 18 Ht 149.9 cm (4' 11.02) Wt 93.3 kg (205 lb 9.6 oz) SpO2 100% BMI 41.5 kg/m2 Neck supple without JVD. Lungs clear without wheezes, rales, rhonchi or retraction. Speaks in full sentences. Heart RRR, normal S1S2, no murmurs, clicks, rubs, gallops. Abdomen soft, non-tender, non-distended, no masses or hepatosplenomegaly. Extremities without cyanosis, clubbing or edema. Other additions or changes: HGB stable today. Tolerating po diet. Home today and follow up for outpatient capsule study. Signature: Ying Brody MD Date: 05/07/2017 Time: 9:07 PM DISCHARGE SUMMARY PATIENT NAME: Jolene Akhtar Admission Information Admission Information ADMIT DATE: 09/20/2017 DISCHARGE DATE: 09/22/2017 MY DOCTORS AND MEDICAL TEAM: My Main Hospital Doctor: Ying Brody Primary Care Provider: Heidi Mack CNP My Medical Team Members: Treatment Team: Attending Provider: Ying Brody Consulting: Seth Long MY CONDITION AT DISCHARGE: Stable REASON I WAS IN THE HOSPITAL: fatigue and anemia SUMMARY OF WHAT HAPPENED WHILE I WAS IN THE HOSPITAL: came to the hospital with fatigue, anemia and diarrhea. Found to have anemia with GI bleed. Had EGD, likely [place] erosion. H/H was monitored. Will need to follow up with GI for capsule study, either Dr. Long or GI doctor in her hometown of [place]. Also noted to have leg swelling. Ultrasound was negative. 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 * OPERATIONS PERFORMED WHILE IN THE HOSPITAL: None IMPORTANT TEST/PROCEDURES: EGD TEST RESULTS NOT AVAILABLE AT THIS TIME: No pending results Discharge Disposition Discharge Disposition: Home With Self Care Activity When You Leave the Hospital Resume pre-hospital activity Diet Instructions Resume your pre-hospital diet Call Your Doctor If You have lightheadedness, fainting, or confusion You have persistent or heavy bleeding Follow Up Appointments Follow-Up Appointment When: In 1 week Candice Amado [phone] [facility] [address] [facility] [address] PCP Requested Referral Follow-Up Appointment With: GI for capsule study. Either in [place] or with Dr. Long When: In 1 week Patient/Parents to call for appointment?: Yes FOLLOW-UP APPOINTMENTS ALREADY SCHEDULED WITH A [facility] PROVIDER: No future appointments. DISCHARGE MEDICATION: Current Discharge Medication List CONTINUE these medications which have NOT CHANGED atenolol (TENORMIN) 25 mg Take 25 mg by mouth twice daily. lidocaine (LIDODERM) 1 Patch Apply 1 Patch as directed every 24 hours. hydroxychloroquine (PLAQUENIL) 200 mg Take 200 mg by mouth twice daily. gabapentin (NEURONTIN) 100 mg Take 100 mg by mouth three times daily. zolpidem (AMBIEN) 10 mg tab Take by mouth at bedtime as needed. buPROPion SR (ZYBAN SR; WELLBUTRIN SR) 150 mg Take 150 mg by mouth twice daily. DULoxetine (CYMBALTA) 60 mg Take 60 mg by mouth twice daily. rOPINIRole (REQUIP) 0.5 mg Take 0.5 mg by mouth daily at bedtime. SUMAtriptan (IMITREX) 100 mg Take 100 mg by mouth as needed. predniSONE (DELTASONE) 10 mg Take 10 mg by mouth once daily. Takes either 3 days or 5 days IRON, FERROUS SULFATE, ORAL 65 mg Take 65 mg by mouth once daily. FOLIC ACID ORAL 400 mg Take 400 mg by mouth twice daily. esomeprazole mag trihydrate(NEXIUM 20 MG CAP) Take one(1) capsule daily. Refills: 0 Associated Diagnoses:Esophageal reflux; Hiatal hernia diphenoxylate-atropine (LOMOTIL) 1 tablet Take 1 tablet by mouth three times daily as needed. oxyCODONE-acetaminophen (PERCOCET) 1 tablet Take 1 tablet by mouth twice daily. FIORICET 325 MG-40 MG-50 MG TAB as necessary Refills: 0 STOP taking these medications mwksjbggra-jctehag-itehjwcy-codeine (FIORINAL WITH CODEINE) 1 capsule Comments: Reason for Stopping: Discharge Physical Exam: VITAL SIGNS: BP (!) 147/48 Pulse 88 Temp 36.9 ?C (98.4 ?F) (Oral) Resp 18 Ht 149.9 cm (4' 11.02) Wt 93.3 kg (205 lb 9.6 oz) SpO2 100% BMI 41.5 kg/m2 GENERAL: Alert, no distress, cooperative LUNGS: Lungs clear to auscultation, Good diaphragmatic excursion CARDIAC: Normal S1 and S2; no rubs, murmurs, or gallops ABDOMEN: Abdomen soft, non-tender, BS normal, No masses or organomegaly NEURO: Negative TIME OF CARE: Discharge Management: I personally spent greater than 30 minutes involved in the discharge management of this patient. SIGNATURE: Angy Maldonado CNP PAGER/CONTACT #: [phone] DATE: September 22, 2017 TIME: 12:38 PM THERAPY NT Observed: 09/22/2017 Status: COMPLETED Source: [place] 10:49 AM CLINIC OTHER CAMPUS REPOSITORY HNO ID: [id number] Author: Yoselin JoshuaOtr/Jane Benson Service: Occupational Therapy Author Type: Occupational Therapist Type: Therapy (PT/OT/Speech/Resp) Filed: 09/22/2017 11:00 AM Note Text: Occupational Therapy Evaluation SERVICE DATE: 09/22/2017 SERVICE TIME: 1020 to 1042 ROOM: [id number] Recommended Discharge Disposition: Home OT Recommended Discharge Disposition Comments: patient would benefit from continued OT services to improve safety during functional transfers and ADLs. Patient will need increased assist initially due to fatigue and SOB during self care tasks. Anticipated Discharge Needs: Physical Assist at Home;Supervision at Home Physical Assist at Home for: Cleaning;Laundry;Meals;Shopping;Transportation Supervision at Home due to: Decreased safety awareness OT Recommendations to Nursing: With assist of 1 person (assist to bathroom for ADLs/toileting) with use of wheeled walker. OT 6 Clicks Score: 20 Precautions/Activity Restrictions: Fall Risk ASSESSMENT: OT Evaluation Moderate Complexity: Occupational Profile - Extended review of patient's medical record completed including patient's physical, cognitive, and psycho-social history (please see current hospital course of evaluation). Occupational Performance - Pt presents with deficits in feeding, grooming, UE bathing/dressing, LE bathing/dressing, functional transfers, functional mobility, decreased safety awareness, decreased insight into deficits Complexity in Clinical Decision Making - The extent of clinical reasoning was moderate, several treatment options present for the patient, need for modification during the evaluation was minimal/moderate, comorbidities affecting occupational performance: Anxiety, depression, PVD, arthritis Tolerated Full Session Occupational Therapy Problem List: Impaired Self Care;Decreased Activity Tolerance;Safety Deficits;Decreased Strength;Functional Mobility Impairment;Balance Impaired Patient /Caregiver Goals: Go Home Goals for Plan of Care: Able to perform HEP with: Verbal Cues Only (UB strengthening program) Grooming with: Set Up Upper Body Bathing with: Set Up Upper Body Dressing with: Set Up Lower Body Bathing with: Modified Independent Lower Body Dressing with: Modified Independent Toilet Hygiene with: Supervision Chair Transfer with: Supervision Toilet Transfer with: Supervision Tolerate (minutes of functional activity): 50 Functional Activity with: Supervision Demonstrate Competence With Education with: Independent (safety with ADLs and functional transfers) Rehab Potential: Good PLAN: Treatment Frequency (times per week): 5 (1-5) Current admission Treatment Interventions: Education;Self Care / Home Management;Energy Conservation Training;Strengthening;Functional Mobility Training;Balance Training Plan of Care developed with: Patient TREATMENT INTERVENTIONS: Therapy Diagnosis: Reduced mobility-other;Decreased activities of daily living (ADL);Muscle Weakness (generalized);Unsteadiness on feet Interventions Provided: Evaluation;Self Half-Way Management (96565) $ Evaluation-Moderate (64035) Billed Units: 1 unit Self Half-Way Management (05781) Treatment Minutes: 8 1 unit Skilled Intervention(s): . Educated on the role of OT in the acute care setting. Facilitated LB dressing while sitting up in chair, educated on figure four technique to avoid excessive leaning forward and to optimize breathing. Provided safety instruction for wheeled walker management and fall prevention during toileting task due to patient leaving wheeled walker outside of bathroom door. Facilitated toilet transfer, educated on hand and body placement and safety with use of rail due to patient pulling on towel rack. Had discussion with patient in regards to energy conservation techniques and strategies to help reduce fatigue during ADLs and IADLs, issued handout. Also had conversion about maintaining good body mechanics during self care tasks to help prevent SOB. Total Timed Code Treatment Minutes: 8 Total Treatment Time (minutes): 22 FUNCTIONAL G CODE: OT 6 Clicks Score: 20 (09/22/17 1020) Self Care Current Status (G8987): CJ (09/22/17 1020) Self Care Goal Status (G8988): CI (09/22/17 1020) Based on clinical assessment and the score on the 6 Clicks Functional Assessment Tool, the G code and corresponding severity modifiers are documented above. SUBJECTIVE: Current Hospital Course: Chart reviewed; . HPI: This is a 82 year old female who presents with increased fatigue and sob over the past 2-3 weeks. She has also been having black diarrhea multiple times per day during this. She was able to walk with a cane, but has had to transition to a walker. She also noted increased in swelling in her legs. Patient Report: Found up in chair, agreeable to therapy, reports headache pain. I fatigue quickly. Home Environment Patient Lives With: Family (daughter) Assistance Available: application technician (dtr works nights) Entry To Home: Stairs;With Rail Number Of Stairs Into Home: 4 Number Of Stairs To Bed/Bath: 0 Equipment Owned: Cane;Wheeled Walker;Rollator;Wheelchair (Adjustable bed) Prior Functional Level: Within Functional Limits;Required Assistance Assistance Required With: Shopping;Transportation Prior Functional Level Comments: wheeled walker last few weeks, cane prior OBJECTIVE: Responsiveness: Alert Follows Commands: 2-step Commands Memory Deficits: Short Term Executive Function Deficits: Safety Awareness;Judgement;Problem Solving Safety Awareness Deficit: Minimal impairment Judgement Deficit: Minimal impairment Problem Solving Deficit: Minimal impairment Mini Cog Score: 2 (09/22/17 1020) Vision Deficits: Wears glasses CURRENT FUNCTIONAL STATUS: Current Activities of Daily Living Assist Level Feeding Set Up Grooming Stand By Assistance Bathing Upper Body Minimal Assistance Bathing Lower Body Minimal Assistance Dressing Upper Body Minimal Assistance Dressing Lower Body Minimal Assistance Toileting Minimal Assistance Functional Mobility Assist Level Rolling Supine to Sit Contact Guard Assistance Sit to Supine Contact Guard Assistance Scooting Contact Guard Assistance Sit to Stand Contact Guard Assistance Stand to Sit Contact Guard Assistance Bed to Chair Toilet/Commode Contact Guard Assistance Functional Mobility Contact Guard Assistance Wheeled Walker Range Of Motion: Within Functional Limits Strength: Within Functional Limits Except Location Strength Not WFL: Upper Extremity Left Upper Extremity Strength: 4-/5 Right Upper Extremity Strength: 4-/5 Coordination Deficits: Finger opposition Finger Opposition Impairment: Bilateral (slow) Balance: Static Standing;Dynamic Standing Static Standing Balance: Contact Guard Assistance Dynamic Standing Balance: Contact Guard Assistance Activity Tolerance: (patient very SOB/fatigued after mobility to the bathroom) Returned to chair, call light in reach. Please see discipline specific clinical documentation flowsheet for complete details for this therapy evaluation/treatment. SIGNATURE: HUEY Escobar/[place]ana PATIENT NAME: Jolene Akhtar DATE: September 22, 2017 TIME: 10:49 AM PAGER: [phone] CONSULT PROG Observed: 09/22/2017 Status: COMPLETED Source: [place] 9:58 AM CLINIC OTHER CAMPUS REPOSITORY HNO ID: [id number] Author: Niya JoshuaRubber Covering Machine Operator) Syd, TAPE EDGE MACHINE OPERATOR Service: Gastroenterology Author Type: Nurse Specialist Type: Consult Progress Note Filed: 09/22/2017 10:05 AM Note Text: GI CONSULT PROGRESS NOTE SERVICE DATE: 09/22/2017 SERVICE TIME: 9:59 AM CONSULTING SERVICE: Gastroenterology Subjective INTERVAL HISTORY: Tolerating diet. No GI symptoms. Hgb stable. MEDICATIONS: Current hospital medications: lidocaine patch - REMOVE OTHER AT BEDTIME lidocaine - VERIFY PATCH OTHER q 8 H pantoprazole DR 40 mg tab(s) (PROTONIX) 40 mg ORAL DAILY (6 AM) gabapentin 100 mg cap(s) (NEURONTIN) 100 mg ORAL TID hydroxychloroquine 200 mg (PLAQUENIL) 200 mg ORAL BID SUMAtriptan 100 mg tab(s) (IMITREX) 100 mg ORAL q 2 H PRN rOPINIRole 0.5 mg tab(s) (REQUIP) 0.5 mg ORAL AT BEDTIME metoprolol tartrate (short acting) 25 mg tab(s) (LOPRESSOR) 25 mg ORAL q 12 H folic acid 0.5 mg tab(s) 0.5 mg ORAL BID ferrous sulfate 325 mg tab(s) 325 mg ORAL BID w MEALS buPROPion SR 150 mg tab(s) (ZYBAN SR; WELLBUTRIN SR) 150 mg ORAL BID DULoxetine 60 mg cap(s) (CYMBALTA) 60 mg ORAL BID lidocaine 5 % 1 Patch (LIDODERM) 1 Patch TRANSDERMAL q 24 H 0.9% NaCl 3-5 mL 3-5 mL INTRAVENOUS q 12 H 0.9% NaCl 2-10 mL 2-10 mL INTRAVENOUS q 12 H acetaminophen 650 mg tab(s) (TYLENOL) 650 mg ORAL q 6 H PRN perflutren lipid microspheres 1.1 mg/mL 1.3 mL injection (DEFINITY) 1.3 mL INTRAVENOUS PRN(NO DISPENSE) zolpidem 5 mg tab(s) (AMBIEN) 5 mg ORAL HS PRN Objective PHYSICAL EXAM: VITALS:BP 136/56 Pulse 97 Temp 36.7 ?C (98.1 ?F) (Oral) Resp 18 Ht 149.9 cm (4' 11.02) Wt 93.3 kg (205 lb 9.6 oz) SpO2 100% BMI 41.5 kg/m2 ABDOMEN: Soft, nondistended, nontender, bowel sounds present. No guarding, rebound or rigidity. GENERAL: Alert and oriented. No distress DATA: Diagnostic tests reviewed for today's visit: Most recent labs and imaging results. CBC, Coags, BMP, Mg, Phos Recent Labs 09/22/17 0320 09/21/17 1300 09/21/17 0331 WBC 7.46 -- -- HB 7.7* 7.4* 7.3* HCT 26.7* 25.8* 26.1* PLT 292 -- -- NA -- -- 141 K -- -- 4.2 CHLOR -- -- 113* CO2 -- -- 21 BUN -- -- 15 CREAT -- -- 1.26* GLUC -- -- 78 CA -- -- 8.7 MG -- -- 2.4 CSF AND Dilantin Liver Function, Amylase, AND Lipase Recent Labs 09/21/17 0331 TPROT 6.3* ALB 3.1* ALT 18 AST 15 ALKPHOS 89 TBILI 0.2 EGD 09/21 - 6 cm hiatal hernia. [place] erosions at gastric aspect of hiatal hernia sac. Surgical biopsies pending Impression/Recommendations GI bleed -Likely due to [place] erosion - Continue Protonix. - Will need to follow up with GI as outpatient for capsule endoscopy. Will need to be off iron supplements for 5 days for test. - Monitor Hgb/Hct - transfuse as needed - Monitor BMs for bleeding - Monitor surgical pathology results ? Anemia - secondary to #1 - Monitor Hgb/Hct - transfuse as needed - Continue iron supplementation - OK to restart Prednisone ? OK to discharge per GI. Can follow up with GI in hometown or with Dr. Long. Continue PPI at discharge ? SIGNATURE: [place]OE [place] PATIENT NAME: Jolene Akhtar DATE: September 22, 2017 TIME: 9:58 AM PAGER/CONTACT #: [phone] CASE MANAGEM Observed: 09/22/2017 Status: COMPLETED Source: [place] 9:13 AM [facility] OTHER CAMPUS REPOSITORY O ID: [id number] Author: Danae (Rn) MINH Myers Service: Care Management Author Type: Registered Nurse Type: Care Mgt Progress Note Filed: 09/22/2017 9:14 AM Note Text: CARE MANAGEMENT PROGRESS NOTE SERVICE DATE: 09/22/2017 SERVICE TIME: 9:13 AM LOS: 2 days Chart reviewed. Spoke with patient at the bedside. Plan is home at discharge. PT recommends home PT. Patient declining HHC services at this time and states her plan is to resume outpatient therapy services at discharge. Patient's daughter Candi willing/ able to care for her as needed and will provide transportation. Will continue to follow for discharge needs. SIGNATURE: Danae Myers RN PATIENT NAME: Jolene Ahktar DATE: September 22, 2017 TIME: 9:13 AM PAGER/CONTACT #: [phone] HEMOGRAM/DIFF Collected: 09/22/2017 Status: F Source: [facility] 3:20 AM HEALTH SYSTEM REPOSITORY TYPE CODE TESTS RESULT OUT OF REFERENCE UNITS RANGE LAB WBC(LOINC) 3.98-10.04 thou/cmm WBC 7.46 LAB RBC(LOINC) 3.93-5.22 mil/cmm Low RBC 2.89 LAB HGB(LOINC) 11.2-15.7 g/dL Low Hgb 7.7 LAB HCT(LOINC) 34.1-44.9 % Low Hct 26.7 LAB MCV(LOINC) 79.4-94.8 fl MCV 92.4 LAB MCH(LOINC) 25.6-32.2 pg MCH 26.6 LAB MCHC(LOINC 31.6-34.8 % ) Low MCHC 28.8 LAB RDW(LOINC) 11.7-14.4 % RDW High 17.2 LAB RDWSD(LOIN 36.4-46.3 fl C) RDW SD High 58.6 LAB PLT(LOINC) 182-369 thou/cmm Platelet 292 LAB MPV(LOINC) 9.4-12.3 fl MPV 9.6 LAB SEG(LOINC) % Seg Neutrophil 72.4 LAB IGRE(LOINC % ) Immature Grans 0.40 LAB LYMPH(LOIN % C) Lymphocyte 11.5 LAB MNO(LOINC) % Monocyte 11.3 LAB EOSIN(LOIN % C) Eosinophil 3.6 LAB BASO(LOINC % ) Basophil 0.8 LAB SEGN(LOINC 1.56-6.13 thou/cmm ) Abs. Neut 5.40 LAB IGAB(LOINC 0.00-0.05 thou/cmm ) Abs Immature Grans 0.03 LAB LYMN(LOINC 1.18-3.74 thou/cmm ) Low Abs. Lymph 0.86 LAB MONON(LOIN 0.27-0.70 thou/cmm C) Abs. High Hooker 0.84 LAB EOSN(LOINC 0.00-0.31 thou/cmm ) Abs. Eosin 0.27 LAB BASON(LOIN 0.01-0.08 thou/cmm C) Abs. Baso 0.06 Performed By: #### [id number] #### [facility] [address] DVT LOWER BILATERAL Observed: 09/21/2017 Status: F Source: [facility] 10:46 PM HEALTH SYSTEM REPOSITORY Performed at [facility] APPROVED BY: Peng Blanco MD Exam Title: ULTRASOUND OF THE RIGHT AND LEFT LOWER EXTREMITY WITH DOPPLER AND COLOR DOPPLER DATE:09/21/2017 22:10 Comparison: None. Clinical Indication/History: The patient has swelling in both lower extremities. Technique: Real time ultrasound with grade compression and distal augmentation, as well as Doppler and color Doppler imaging of the right and left common femoral, femoral and popliteal veins were perfo rmed. In addition the right and left posterior tibial and peroneal veins were evaluated. FINDINGS: No intraluminal echogenic material is noted. The venous structures demonstrate normal compressibility throughout their course. There is spontaneous flow and normal augmentation with distal compression at all levels. IMPRESSION: There is no evidence of deep venous thrombosis within the right or left lower extremity. THERAPY NT Observed: 09/21/2017 Status: COMPLETED Source: [place] 2:55 PM CLINIC OTHER CAMPUS REPOSITORY HNO ID: [id number] Author: Todd Merlos Service: Physical Therapy Author Type: Physical Therapist Type: Therapy (PT/OT/Speech/Resp) Filed: 09/21/2017 3:04 PM Note Text: Physical Therapy Evaluation SERVICE DATE: 09/21/2017 SERVICE TIME: 1401 to 1435 ROOM: [id number] Recommended Discharge Disposition: Home PT Anticipated Discharge Needs: Physical Assist at Home Physical Assist at Home for: Laundry;Shopping;Transportation Recommended Discharge Equipment: No equipment needs anticipated PT Recommendations to Nursing: Ambulate with device using gait belt;To bathroom using gait belt;In halls using gait belt;OOB for Meals using gait belt Device: Wheeled Walker PT 6 Clicks Score: 18 Precautions/Activity Restrictions: Fall Risk ASSESSMENT : Patient presents with personal factors, comorbidities and results of the PT examination that require moderate complexity decision making. The patient requires skilled physical therapy to address multiple PT problems in order for the patient to return to a baseline functional level. Tolerated Full Session (with rest breaks) Physical Therapy Problem List: Education Deficit;Safety Deficits;Decreased Activity Tolerance;Decreased Strength;Functional Mobility Impairment;Balance Impaired Patient /Caregiver Goals: Go Home Goals for Plan of Care: Transfer supine to/from sit with: Independent Transfer sit to/from stand with: Modified Independent Ambulate with: Modified Independent Distance: 80 Device: Wheeled Walker Ambulate up and down steps with: Modified Independent Number of steps: 4 Device: Rail Rehab Potential: Good PLAN: Treatment Frequency (times per week): 5 (1-5) Current admission Treatment Interventions: Education;Self Care / Home Management;Energy Conservation Training;Strengthening;Functional Mobility Training;Balance Training Plan of Care developed with: Patient TREATMENT INTERVENTIONS: Therapy Diagnosis: Reduced mobility-other;Decreased activities of daily living (ADL);Muscle Weakness (generalized);Unsteadiness on feet;Difficulty walking-musculoskeletal Interventions Provided: Evaluation;Therapeutic Activity (00899) $ Evaluation-Moderate (57885) Billed Units: 1 unit Therapeutic Activity (25129) Treatment Minutes: 14 1 unit Skilled Intervention(s): Instructed patient in supine to sit pushing with upper extremities to sit up. Instructed patient in sit to supine using safe, effective technique. Instruction in sit to stand technique with proper hand placement and body positioning at edge of bed/chair. Instruction in stand to sit technique with lower extremities touching chair/bed and reaching back for surface. Education with mobility safety including discussion of navigating home environment, factors for chronic back pain and chronic pain pathology such as fibromyalgia and ways to reduce, discussion of affects of sedentary lifestyle and increasing activity in and outside of home, physiological benefits of upright sitting in chair vs bed, causes of fatigue and anemia as a contribultor. Total Timed Code Treatment Minutes: 14 Total Treatment Time (minutes): 30 FUNCTIONAL G CODE: PT 6 Clicks Score: 18 (09/21/17 1401) Mobility: Walking and Moving Around Current Status (G8978): CK (09/21/17 1401) Mobility: Walking and Moving Around Goal Status (G8979): CJ (09/21/17 1401) Based on clinical assessment and the score on the 6 Clicks Functional Assessment Tool, the G code and corresponding severity modifiers are documented above. SUBJECTIVE: Current Hospital Course: Chart reviewed; EGC this morning, Hx includes back surgeries and bilateral foot surgeries, fibromyalgia,lab values and vital signs not significant to PT session today. PAST MEDICAL HISTORY Diagnosis Date - Acute gastritis without mention of hemorrhage - Acute gastritis without mention of hemorrhage - Acute gastritis without mention of hemorrhage - Anal fissure - Anxiety state, unspecified - Degeneration of intervertebral disc, site unspecified - Depressive disorder, not elsewhere classified - Diaphragmatic hernia without mention of obstruction or gangrene - Diaphragmatic hernia without mention of obstruction or gangrene - Diverticulosis of colon (without mention of hemorrhage) - Esophageal reflux - Essential hypertension, malignant - Fibromyalgia - Hemorrhage of gastrointestinal tract, unspecified - Internal hemorrhoids without mention of complication - Internal hemorrhoids without mention of complication - Myalgia and myositis, unspecified - Obesity, unspecified - Obstructive sleep apnea (adult) (pediatric) - Other forms of migraine, without mention of intractable migraine without mention of status migrainosus - Peptic ulcer disease - Pure hypercholesterolemia - Unspecified essential hypertension - Unspecified functional disorder of stomach PAST SURGICAL HISTORY Procedure Laterality Date - APPENDECTOMY - BACK SURGERY HX 2010,2012 - CHOLECYSTECTOMY - COLONOSCOP W/ OR W/O [facility] SPEC 10/06 Colonoscopy - COLONOSCOP W/ OR W/O [facility] SPEC 11/07/06 - EGD W/O [facility] SPECIMEN W/BX 11/07/06 - EGD W/O [facility] SPECIMEN W/BX 10/29/09 - EGD W/O OR W/BRUSH/WASH 10/06 EGD - EGD W/O OR W/BRUSH/WASH 06/09/2016 EGD - PAST SURGICAL HISTORY OF bilaterial CTR - PAST SURGICAL HISTORY OF right knee - PAST SURGICAL HISTORY OF right elbow - PAST SURGICAL HISTORY OF both feet surgeries x 6 - PAST SURGICAL HISTORY OF left cataract - PAST SURGICAL HISTORY OF 10/13 hyst at [facility] - PAST SURGICAL HISTORY OF 2010 Laparoscopic choleycystectomy and umbilical herniorhaphy - REMOVAL OF TONSILS,<13 Y/O Tonsillectomy Patient Report: Identification verified x2, patient agreeable to therapy. Reports her mobility has decreased last few weeks, using rollator instead of cane, and activity reduced due to fatigue. Home Environment Patient Lives With: Family (daughter) Assistance Available: application technician (dtr works nights) Entry To Home: Stairs;With Rail Number Of Stairs Into Home: 4 Number Of Stairs To Bed/Bath: 0 Equipment Owned: Cane;Wheeled Walker;Rollator;Wheelchair (Adjustable bed) Prior Functional Level: Within Functional Limits;Required Assistance Assistance Required With: Shopping;Transportation Prior Functional Level Comments: wheeled walker last few weeks, cane prior OBJECTIVE: Range Of Motion: Within Functional Limits Strength: Within Functional Limits Except Location Strength Not WFL: Upper Extremity;Lower Extremity;Other: See Comment Left Upper Extremity Strength: 4-/5 Right Upper Extremity Strength: 4-/5 Left Lower Extremity Strength: 4/5 Right Lower Extremity Strength: 4/5 Other Site Strength: Trunk 3+/5 CURRENT FUNCTIONAL STATUS: Current Functional Mobility Assist Level Additional Information Rolling Modified Independent Supine to Sit Contact Guard Assistance (HOB elevated) Sit to Supine Scooting Sit to Stand Contact Guard Assistance (extra time required) Stand to Sit Contact Guard Assistance Bed to Chair Toilet/Commode Gait Contact Guard Assistance Gait Device: Wheeled Walker Gait Distance (feet): 75 Stairs Curb Step Car Transfer General Gait Deviations: Marj decreased;Lateral sway increased;Step length decreased;Flexed trunk posture;Non-functional gait speed Balance: Dynamic Standing Dynamic Standing Balance: Contact Guard Assistance (Fair +) Activity Tolerance: Standing Activity Standing Activity: ambulation Standing Activity Tolerance (in minutes): 5 Patient in bed with call light and phone in reach on bedside table. Advised to use call light and wait for assist to get out of bed. Please see discipline specific clinical documentation flowsheet for complete details for this therapy evaluation/treatment. SIGNATURE: Todd Merlos PT PATIENT NAME: Jolene Akhtar DATE: September 21, 2017 TIME: 2:55 PM PAGER/CONTACT #: [phone] PROGRESS Observed: 09/21/2017 Status: COMPLETED Source: [place] 2:27 PM CLINIC OTHER CAMPUS REPOSITORY HNO ID: [id number] Author: Ying Brody Service: Hospital Medicine Author Type: Physician Type: Progress Notes Filed: 09/21/2017 2:34 PM Note Text: DEPARTMENT OF HOSPITAL MEDICINE PROGRESS NOTE SERVICE DATE: 09/21/2017 SERVICE TIME: 2:28 PM Hospital Medicine/Primary Attending: Ying Brody MD NIGHT AND WEEKEND COVERAGE: After 7pm please page [phone] CHIEF COMPLAINT: GI bleed SUBJECTIVE: No complaints after EGD. No N/V, melena, hematemesis. No dizziness. OBJECTIVE: PHYSICAL EXAM: BP 147/98 Pulse 97 Temp (Src) 98.1 (Oral) Resp 18 Ht 4' 11.016 (1.50m) Wt 203 lb 9.6 oz (92.4kg) SpO2 100% BMI 41.10 kg/(m2). General - AANDOx3, NAD, Calm CV - RRR S1 S2, No M/R/G RESP - CTA B/L No wheezes, ronchi, rales ABD - soft, NT, ND +BS EXT - no gross joint deformity, no clubbing, cyanosis, edema MEDICATIONS: Current hospital medications: lidocaine patch - REMOVE OTHER AT BEDTIME lidocaine - VERIFY PATCH OTHER q 8 H [START ON 09/22/2017] pantoprazole DR 40 mg tab(s) (PROTONIX) 40 mg ORAL DAILY (6 AM) gabapentin 100 mg cap(s) (NEURONTIN) 100 mg ORAL TID hydroxychloroquine 200 mg (PLAQUENIL) 200 mg ORAL BID SUMAtriptan 100 mg tab(s) (IMITREX) 100 mg ORAL q 2 H PRN rOPINIRole 0.5 mg tab(s) (REQUIP) 0.5 mg ORAL AT BEDTIME metoprolol tartrate (short acting) 25 mg tab(s) (LOPRESSOR) 25 mg ORAL q 12 H folic acid 0.5 mg tab(s) 0.5 mg ORAL BID ferrous sulfate 325 mg tab(s) 325 mg ORAL BID w MEALS buPROPion SR 150 mg tab(s) (ZYBAN SR; WELLBUTRIN SR) 150 mg ORAL BID DULoxetine 60 mg cap(s) (CYMBALTA) 60 mg ORAL BID lidocaine 5 % 1 Patch (LIDODERM) 1 Patch TRANSDERMAL q 24 H 0.9% NaCl 3-5 mL 3-5 mL INTRAVENOUS q 12 H 0.9% NaCl 2-10 mL 2-10 mL INTRAVENOUS q 12 H acetaminophen 650 mg tab(s) (TYLENOL) 650 mg ORAL q 6 H PRN perflutren lipid microspheres 1.1 mg/mL 1.3 mL injection (DEFINITY) 1.3 mL INTRAVENOUS PRN(NO DISPENSE) zolpidem 5 mg tab(s) (AMBIEN) 5 mg ORAL HS PRN DATA: Diagnostic tests reviewed for today's visit: CBC: Recent Labs 09/21/17 1300 HB 7.4* HCT 25.8* CMP: Recent Labs 09/21/17 0331 NA 141 K 4.2 CHLOR 113* CO2 21 BUN 15 CREAT 1.26* GLUC 78 TPROT 6.3* CA 8.7 MG 2.4 TBILI 0.2 ALKPHOS 89 ALT 18 AST 15 ANION 11 MG/PHOS: Recent Labs 09/21/17 0331 MG 2.4 Assessment/Plan Principal Problem: GI bleed POA: Yes Assessment AND Plan: Transfuse <7. PPI every 12 hours. EGD done. Erosions noted in stomach ? Active Problems: Anemia due to acute blood loss POA: Yes Assessment AND Plan: transfuse <7. PPI BID. Monitor closely. ? Leg swelling POA: Yes Assessment AND Plan: check US to rule out DVT. HO DVT but not actively taking xarelto. Brook xavier bilyann. Check UA, TSH and echo. ? Essential hypertension POA: Yes Assessment AND Plan: cont with home meds. ? Diaphragmatic hernia POA: Yes Assessment AND Plan: GI to see. May have developed ulcer. ? Fibromyalgia POA: Yes Assessment AND Plan: cont with meds. I am holding her prednisone at this time due to possible bleeding. If no active bleeding noted, can be resumed if ok with GI. ? Hypercholesteremia POA: Yes Assessment AND Plan: cont with rx. ? FRANCES (obstructive sleep apnea) POA: Yes Assessment AND Plan: weight loss, and lifestyle modification. ? Migraine headache POA: Yes Assessment AND Plan: no excedrin. imitrex if needed. ? Obesity, unspecified POA: Yes Assessment AND Plan: weight loss and lifestyle modification needed. ? VTE Prophylaxis: Pneumatic Compression Device Disposition: Home in AM Plan of care discussed with: Patient SIGNATURE: Ying Brody MD PATIENT NAME: Jolene Akhtar DATE: September 21, 2017 TIME: 2:28 PM PAGER/CONTACT #: [phone] VINES MGT INIT Observed: 09/21/2017 Status: COMPLETED Source: [facility] 1:33 PM CLINIC OTHER CAMPUS REPOSITORY HNO ID: [id number] Author: Danae (Rn) MINH Myers Service: Care Management Author Type: Registered Nurse Type: Care Mgt Initial Assessment Filed: 09/21/2017 1:43 PM Note Text: CARE MANAGEMENT: ASSESSMENT AND DISCHARGE PLAN SERVICE DATE: 09/21/2017 SERVICE TIME: 1:33 PM PRIMARY CARE PHYSICIAN: Heidi Mack CNP ADMISSION STATUS: Inpatient POTENTIAL DISCHARGE PLANS Home Patient/Corrosion Technician Stated Goals: Patient states plan is home at discharge. Patient from home with her daughter prior to admission. Patient states plan is home at discharge. Patient's daughter Candi willing/ able to care for her as needed and will provide transportation. PT/OT evaluation pending. Will continue to follow for discharge needs. Needs Prior to Discharge: To Be Determined;OT/PT Evaluation Health Insurance: Medicare, +Prescription coverage Living Arrangement: Home Lives With: Daughter Financial Resources: Retired Primary Contact: Extended Emergency Contact Information Primary Emergency Contact: Candi Lafleur Mobile Relation: Daughter Supportive: Yes Other Important Patient Contacts: None CAREGIVER ASSESSMENT: Caregiver is ready, willing and able to meet the patient's needs as recommended by the inter-professional team? Yes Patient's transition needs and plan for meeting these needs: Patient's daughter Candi willing/ able to care for her as needed. Does the patient have an acute stroke diagnosis, or has the patient had a stroke during this admission? No ADVANCE DIRECTIVES: Does Patient Have Advance Directives? Unsure Does Patient Have Concerns About Advance Directives? No- patient declining information at this time. PRIOR TO ADMISSION: Baseline Mental Status: Alert AND Oriented, Person, Place , Time, Situation and Age Appropriate Functional Status: Needs Assistance; Patient's daughter Candi assists with IADLS as needed. Does Patient Currently Receive Any Community Services or Home Care? None Equipment Prior to Admission: Walker Wheelchair HEALTH: Health Issues Impacting Discharge Plan: GI bleed Health Literacy Issues: No PSYCHOSOCIAL: Is the Patient Psychosocially Complex? No Family/Patient Understanding of Illness/Diagnosis: Yes Medication Adherence: Do you forget to take your medications? I do not forget to take my medication Have you ever stopped taking medications because you felt worse? None of the time Have you ever taken less of your medication than what was prescribed by your doctor? None of the time In the past 3 months, have you had issues obtaining one or more of your medications? None of the time Are you interested in bedside delivery of your medications? No Food Concerns: In the Last Month, Have You had Trouble Getting Food? No trouble getting food During the Last Month, Have You Worried Whether Your Food Would Run Out Before You Had Enough Money to Buy More? No Psychosocial Needs: None UTILIZATION: Last Admission Date: none Is this Within the Past 30 days? No Has the Patient Been in a Penitentiary Facility in the Past 30 days? No FREEDOM OF CHOICE EXPLAINED: N/A HANDOFF COMMUNICATION: Primary Care Physician: Heidi Mack CNP SIGNATURE: Danae Myers RN PATIENT NAME: Jolene Akhtar DATE: September 21, 2017 TIME: 1:33 PM PAGER/CONTACT #: [phone] HGB Collected: 09/21/2017 Status: F Source: [facility] 1:00 PM HEALTH SYSTEM REPOSITORY TYPE CODE TESTS RESULT OUT OF RANGE REFERENCE UNITS LAB HGBI(LOINC) 11.2-15.7 g/dL Low Hgb 7.4 Performed By: #### HGBI #### [address] [address] HCT Collected: 09/21/2017 Status: F Source: [facility] 1:00 PM HEALTH SYSTEM REPOSITORY TYPE CODE TESTS RESULT OUT OF RANGE REFERENCE UNITS LAB HCTI(LOINC) 34.1-44.9 % Low Hct 25.8 Performed By: #### HCTI #### [place] [address] ANES POST Observed: 09/21/2017 Status: COMPLETED Source: [place] 11:57 AM CLINIC OTHER CAMPUS REPOSITORY HNO ID: [id number] Author: Jj Brody Service: Anesthesiology Author Type: Physician Type: Anesthesia PostOp Filed: 09/21/2017 11:58 AM Note Text: POST ANESTHESIA EVALUATION NOTE SERVICE DATE: 09/21/2017 SERVICE TIME: 11:57 AM : 1935 Vitals: 09/20/17 2158 09/20/17 2357 09/21/17 0424 09/21/17 0751 Temp: 37.1 ?C (98.8 ?F) 36.7 ?C (98.1 ?F) 36.5 ?C (97.7 ?F) 36.9 ?C (98.4 ?F) 09/21/17 0939 09/21/17 0952 09/21/17 1104 09/21/17 1115 BP: (!) 151/45 156/81 153/57 127/85 09/21/17 0939 09/21/17 0952 09/21/17 1104 09/21/17 1115 Pulse: 81 80 81 82 09/21/17 0939 09/21/17 0952 09/21/17 1104 09/21/17 1115 Resp: 16 16 14 15 09/21/17 0939 09/21/17 0952 09/21/17 1104 09/21/17 1115 SpO2: 95% 96% 100% 100% Validated Vital Signs: Yes POST ANES STATUS: No apparent anesthetic complications. The patient is appropriately hydrated with stable respiratory and cardiovascular status. Patient has safe and adequate airway control. The patient has appropriate pain relief and no significant post operative nausea or vomiting. The patient has achieved baseline mental status. Further assessment by Anesthesia Service: None Other Remarks: SIGNATURE: Jj Brody DO PATIENT NAME: Jolene Akhtar DATE: September 21, 2017 TIME: 11:57 AM PAGER/CONTACT #: [phone] NURSING PROG Observed: 09/21/2017 Status: COMPLETED Source: [place] 11:13 AM [facility] REPOSITORY HNO ID: [id number] Author: Kathleen JoshuaRn) MINH Ferrari Service: Nursing Author Type: Registered Nurse Type: Nursing Progress Note Filed: 09/21/2017 11:13 AM Note Text: Dr. Long by to see patient NURSING PROG Observed: 09/21/2017 Status: COMPLETED Source: [place] 11:06 AM [facility] REPOSITORY HNO ID: [id number] Author: Kathleen JoshuaRn) MINH Ferrari Service: Nursing Author Type: Registered Nurse Type: Nursing Progress Note Filed: 09/21/2017 11:06 AM Note Text: No crepitus, no c/o BRIEF OP NOT Observed: 09/21/2017 Status: COMPLETED Source: [place] 10:56 AM [facility] REPOSITORY HNO ID: [id number] Author: Seth Long Service: Gastroenterology Author Type: Physician Type: Brief Op Note Filed: 09/21/2017 11:18 AM Note Text: BRIEF OPERATIVE / PROCEDURE NOTE LOG ID: [id number] SURGERY/PROCEDURE DATE: 09/21/2017 INCISION/PROCEDURE START TIME: 10:49 AM INCISION CLOSE/PROCEDURE END TIME: SURGEON(S)/PROCEDURALIST(S) AND AIRPORT MANAGER(S): Surgeon(s) and Role: * Seth Long - Primary No Additional Staff PROCEDURE(S): EGD +/- Dilatation and Biopsy ANESTHESIA: Monitored Anesthesia Care FINDINGS: 6 cm HH Darien's ersosions Antral bx's Digital rectal exam done after EGD: normal rectal tone, scant brown stool, no blood ESTIMATED BLOOD LOSS: None SPECIMENS: * No specimens in log * COMPLICATIONS: None PRE-OP/PRE-PROCEDURE DIAGNOSIS: iron def anemia POST-OP/POST-PROCEDURE DIAGNOSIS: as above F/u on pathology Increase PPI dosing (pt on Nexium 20 mg/d at home, would increase to 40 mg/d) Small bowel capsule endoscopy as outpatient after pt has held iron for a week Ok to d/c home in AM if Hgb stable Dict #: [id number] SIGNATURE: Seth Long MD PATIENT NAME: Jolene Akhtar DATE: September 21, 2017 TIME: 10:56 AM PAGER/CONTACT #: ANES PREOP Observed: 09/21/2017 Status: COMPLETED Source: [place] 9:50 AM [facility] REPOSITORY O ID: [id number] Author: Jj Brody Service: Anesthesiology Author Type: Physician Type: Anesthesia PreOp Filed: 09/21/2017 9:52 AM Note Text: ANESTHESIOLOGY DAY OF SURGERY NOTE SERVICE DATE: 09/21/2017 SERVICE TIME: 9:50 AM : 1935 Procedure(s) (LRB): EGD (Left) Surgeon(s): Seth Long Estimated body mass index is 41.1 kg/(m2) as calculated from the following: Height as of this encounter: 149.9 cm (4' 11.02). Weight as of this encounter: 92.4 kg (203 lb 9.6 oz). Most recent hematocrit and potassium results: Hematocrit 26.1 09/21/2017 Potassium 4.2 09/21/2017 ANES DOS/PREOP NOTE: Vitals: 09/21/17 0528 09/21/17 0532 09/21/17 0751 09/21/17 0939 BP: 160/63 150/69 (!) 151/45 Pulse: 79 87 81 Resp: 16 Temp: 36.9 ?C (98.4 ?F) TempSrc: Oral SpO2: 100% 98% 95% Weight: Height: 149.9 cm (4' 11.02) ACTIVE PROBLEM LIST Anxiety State, Unspecified Esophageal Reflux Degeneration of Intervertebral Disc, Site Unspecified Unspecified Functional Disorder of Stomach Pure Hypercholesterolemia Acute Gastritis Without Mention of Hemorrhage Diaphragmatic Hernia Peripheral Vascular Disease (Hcc) Depression Gerd (Gastroesophageal Reflux Disease) Chronic Rheumatic Arthritis (Hcc) Pud (Peptic Ulcer Disease) Htn (Hypertension) Restless Leg Syndrome Renal Insufficiency Fibromyalgia Hypercholesteremia Dysphagia Frances (Obstructive Sleep Apnea) Iron Deficiency Anemia Due to Chronic Blood Loss Essential Hypertension Migraine Headache Obstructive Sleep Apnea (Adult) (Pediatric) Obesity, Unspecified Peptic Ulcer Disease GI Bleed Anemia Due to Acute Blood Loss Leg Swelling Anemia PAST MEDICAL HISTORY Diagnosis Date - Acute gastritis without mention of hemorrhage - Acute gastritis without mention of hemorrhage - Acute gastritis without mention of hemorrhage - Anal fissure - Anxiety state, unspecified - Degeneration of intervertebral disc, site unspecified - Depressive disorder, not elsewhere classified - Diaphragmatic hernia without mention of obstruction or gangrene - Diaphragmatic hernia without mention of obstruction or gangrene - Diverticulosis of colon (without mention of hemorrhage) - Esophageal reflux - Essential hypertension, malignant - Fibromyalgia - Hemorrhage of gastrointestinal tract, unspecified - Internal hemorrhoids without mention of complication - Internal hemorrhoids without mention of complication - Myalgia and myositis, unspecified - Obesity, unspecified - Obstructive sleep apnea (adult) (pediatric) - Other forms of migraine, without mention of intractable migraine without mention of status migrainosus - Peptic ulcer disease - Pure hypercholesterolemia - Unspecified essential hypertension - Unspecified functional disorder of stomach PAST SURGICAL HISTORY Procedure Laterality Date - APPENDECTOMY - BACK SURGERY HX - CHOLECYSTECTOMY - COLONOSCOP W/ OR W/O [facility] SPEC 10/06 Colonoscopy - COLONOSCOP W/ OR W/O [facility] SPEC 11/07/06 - EGD W/O [facility] SPECIMEN W/BX 11/07/06 - EGD W/O [facility] SPECIMEN W/BX 10/29/09 - EGD W/O OR W/BRUSH/WASH 10/06 EGD - EGD W/O OR W/BRUSH/WASH 06/09/2016 EGD - PAST SURGICAL HISTORY OF bilaterial CTR - PAST SURGICAL HISTORY OF right knee - PAST SURGICAL HISTORY OF right elbow - PAST SURGICAL HISTORY OF both feet surgeries x 6 - PAST SURGICAL HISTORY OF left cataract - PAST SURGICAL HISTORY OF 10/13 hyst at [facility] - PAST SURGICAL HISTORY OF 2010 Laparoscopic choleycystectomy and umbilical herniorhaphy - REMOVAL OF TONSILS,<13 Y/O Tonsillectomy FAMILY HISTORY Problem Relation Age of Onset - Hypertension Other - fibromyalgia' [OTHER] Other - back pain [OTHER] Other - pancreatic cancer [OTHER] Sister - Stroke Mother - Heart Father - Heart Brother Social History: Social History Substance Use Topics - Smoking status: Never Smoker - Smokeless tobacco: Never Used Comment: exposed to second hand smoke - Alcohol use Yes Comment: very occasional No current facility-administered medications on file prior to encounter. Current Outpatient Prescriptions on File Prior to Encounter: atenolol (TENORMIN) 25 mg tablet Take 25 mg by mouth twice daily. lidocaine (LIDODERM) 5 % Apply 1 Patch as directed every 24 hours. hydroxychloroquine (PLAQUENIL) 200 mg tablet Take 200 mg by mouth twice daily. gabapentin (NEURONTIN) 400 mg capsule Take 100 mg by mouth three times daily. zolpidem (AMBIEN) 10 mg tab Take by mouth at bedtime as needed. buPROPion SR (ZYBAN SR; WELLBUTRIN SR) 150 mg 12 hr tablet Take 150 mg by mouth twice daily. DULoxetine (CYMBALTA) 60 mg capsule Take 60 mg by mouth twice daily. rOPINIRole (REQUIP) 0.5 mg tablet Take 0.5 mg by mouth daily at bedtime. SUMAtriptan (IMITREX) 100 mg tablet Take 100 mg by mouth as needed. predniSONE 10 mg tablet Take 10 mg by mouth once daily. Takes either 3 days or 5 days IRON, FERROUS SULFATE, ORAL Take 65 mg by mouth once daily. FOLIC ACID ORAL Take 400 mg by mouth twice daily. esomeprazole mag trihydrate(NEXIUM 20 MG CAP) Take one(1) capsule daily. btcatcghri-dvyzdjf-gpcuwssp-codeine (FIORINAL WITH CODEINE) capsule Take 1 capsule by mouth every 4 hours as needed. diphenoxylate-atropine (LOMOTIL) 2.5-0.025 mg per tablet Take 1 tablet by mouth three times daily as needed. oxyCODONE-acetaminophen (PERCOCET) 5-325 mg tablet Take 1 tablet by mouth twice daily. FIORICET 325 MG-40 MG-50 MG TAB as necessary Current Facility-Administered Medications: lidocaine patch - REMOVE OTHER AT BEDTIME Mary Daisy And lidocaine - VERIFY PATCH OTHER q 8 H Mary Daisy gabapentin 100 mg cap(s) (NEURONTIN) 100 mg ORAL TID Mary Huffman 100 mg at 09/21/17 0022 hydroxychloroquine 200 mg (PLAQUENIL) 200 mg ORAL BID Mary Huffman 200 mg at 09/21/17 0027 SUMAtriptan 100 mg tab(s) (IMITREX) 100 mg ORAL q 2 H PRN Mary Huffman 100 mg at 09/21/17 0226 rOPINIRole 0.5 mg tab(s) (REQUIP) 0.5 mg ORAL AT BEDTIME Mary Huffman 0.5 mg at 09/21/17 0027 metoprolol tartrate (short acting) 25 mg tab(s) (LOPRESSOR) 25 mg ORAL q 12 H Mary Huffman 25 mg at 09/21/17 0027 folic acid 0.5 mg tab(s) 0.5 mg ORAL BID Mary Huffman 0.5 mg at 09/21/17 002 ferrous sulfate 325 mg tab(s) 325 mg ORAL BID w MEALS Mary Daisy buPROPion SR 150 mg tab(s) (ZYBAN SR; WELLBUTRIN SR) 150 mg ORAL BID Mary Huffman 150 mg at 09/21/17 002 DULoxetine 60 mg cap(s) (CYMBALTA) 60 mg ORAL BID Mary Huffman 60 mg at 09/21/17 0022 lidocaine 5 % 1 Patch (LIDODERM) 1 Patch TRANSDERMAL q 24 H Marymonica Villa pantoprazole 40 mg injection (PROTONIX) 40 mg INTRAVENOUS BID AC (0600/1600) Mary Huffman 40 mg at 09/21/17 0600 0.9% NaCl 3-5 mL 3-5 mL INTRAVENOUS q 12 H Mary Huffman 3 mL at 09/21/17 0900 0.9% NaCl 2-10 mL 2-10 mL INTRAVENOUS q 12 H Mary Huffman 3 mL at 09/21/17 0900 acetaminophen 650 mg tab(s) (TYLENOL) 650 mg ORAL q 6 H PRN Mary Huffman 650 mg at 09/21/17 0812 perflutren lipid microspheres 1.1 mg/mL 1.3 mL injection (DEFINITY) 1.3 mL INTRAVENOUS PRN(NO DISPENSE) Mary Villa zolpidem 5 mg tab(s) (AMBIEN) 5 mg ORAL HS PRN Mary Huffman 5 mg at 09/21/17 0133 Allergies: ALLERGIES Allergen Reactions - Cigarette Smoke [Ot* - Enviromental [Other] DOS EXAM: Adequate NPO status: Yes Anesthetic risks, benefits, alternatives, personnel and consent discussed: Yes Patient agrees to proceed: Yes Previous Anesthesia: No history of adverse event. Airway Assessment: MP 2; Neck ROM: Full ROM without neurologic symptoms; Airway Evaluation: Short Neck, Thick neck and Small Mouth Opening Symptoms of Sleep Apnea: + FRANCES does not wear CPAP Dentition: Dentures: both Additional Physical Exam: Lungs: Patient health status unchanged since recent history and physical. See history and physical for exam findings. Cardiac: Patient health status unchanged since recent history and physical. See history and physical for exam findings. Additional Pertinent Findings: N/A Blood Products: Not anticipated for this procedure. Anesthetic Plan: MAC with Sedation Pain Management Plan: Parenteral or Oral ASA Class: 3 Other Medical Problems: GIB presumed upper. Hgb 7.3. Denies CP or SOB, no cardiac history Chronic Beta Tyler medication administered within 24 hours: N/A I have interviewed and examined the patient. I have reviewed the medical record and/or the pre-anesthesia evaluation, pertinent labs, and test results. Significant changes in the patient's condition since the History and Physical, not otherwise documented in primary service progress notes: No This contains updated information obtained within 48 hours of Surgery/Procedure. SIGNATURE: Jj Brody DO PATIENT NAME: Jolene Akhtar DATE: September 21, 2017 TIME: 9:50 AM CSN: [id number] NURSING PROG Observed: 09/21/2017 Status: COMPLETED Source: [place] 9:47 AM CLINIC OTHER CAMPUS REPOSITORY HNO ID: [id number] Author: India JoshuaRn) MINH Tomlinson Service: Nursing Author Type: Registered Nurse Type: Nursing Progress Note Filed: 09/21/2017 9:47 AM Note Text: PRE OP LEARNING ASSESSMENT PROCEDURE/SURGERY: GI PROCEDURES: Colonoscopy READINESS TO LEARN COGNITIVE ABILITY: Alert and oriented MOTIVATION TO LEARN: Interested FAMILY SUPPORT: Unable to assess - Family not present PATIENT LEARNS BEST BY: Verbal Instruction FACTORS AFFECTING LEARNING: None PHYSICAL LIMITATIONS AFFECTING LEARNING: None Electronically Signed By: India Tomlinson RN In Department: [facility] NURSING PROG Observed: 09/21/2017 Status: COMPLETED Source: [place] 9:46 AM CLINIC OTHER CAMPUS REPOSITORY HNO ID: [id number] Author: India JoshuaRn) MINH Tomlinson Service: Nursing Author Type: Registered Nurse Type: Nursing Progress Note Filed: 09/21/2017 9:46 AM Note Text: PRE OP LEARNING ASSESSMENT PROCEDURE/SURGERY: GI PROCEDURES: Colonoscopy READINESS TO LEARN COGNITIVE ABILITY: Alert and oriented MOTIVATION TO LEARN: Eager FAMILY SUPPORT: Unable to assess - Family not present PATIENT LEARNS BEST BY: Demonstration FACTORS AFFECTING LEARNING: None PHYSICAL LIMITATIONS AFFECTING LEARNING: None Electronically Signed By: India Tomlinson RN In Department: [facility] CONSULT Observed: 09/21/2017 Status: COMPLETED Source: [place] 8:55 AM [facility] OTHER [place] REPOSITORY HNO ID: [id number] Author: ZOE Beach (Cns) Service: Gastroenterology Author Type: Nurse Specialist Type: Consults Filed: 09/21/2017 9:16 AM Note Text: INITIAL CONSULT GASTROENTEROLOGY SERVICE DATE: 09/21/2017 SERVICE TIME: 8:55 AM Consulting Service: Hospital Medicine Opinion/advice regarding: Anemia, possible melena Subjective HPI: This is a 82 year old female who presented with anemia. She saw her PCP on Monday of this week due to increasing lower extremity edema. Her PCP ordered bloodwork and the results revealed low Hgb/Hct. Her physician phoned her and told her to present to [facility]. The low Hgb/Hct was confirmed at [place] and she was transfused with PRBC's and sent to [facility] for concern of GI bleed. She states that she had multiple episodes of diarrhea over the last week. The diarrhea was dark in color but she is unsure if it was brown or black. She noted small amounts of blood streaks with the diarrhea. She does take iron supplementations at home and her stool is usually dark in color. She states she was taking Lomotil at home and the diarrhea resolved on Monday of this week. She denies dysphagia, heartburn, acid reflux, nausea or vomiting. She states she has occasional bilateral lower quadrant crampy abdominal pain that is not affected by eating or moving her bowels. She had both EGD and colonoscopy in June of 2016 for iron deficiency anemia. She had diverticulosis in the sigmoid and descending colon with polyps in the transverse and rectal area and a large hiatal hernia and erythematous mucosa without bleeding in the gastric antrum. Surgical pathology was negative for H. Pylori. GI was consulted for anemia and concerns of GI bleeding. PAST MEDICAL HISTORY Diagnosis Date - Acute gastritis without mention of hemorrhage - Acute gastritis without mention of hemorrhage - Acute gastritis without mention of hemorrhage - Anal fissure - Anxiety state, unspecified - Degeneration of intervertebral disc, site unspecified - Depressive disorder, not elsewhere classified - Diaphragmatic hernia without mention of obstruction or gangrene - Diaphragmatic hernia without mention of obstruction or gangrene - Diverticulosis of colon (without mention of hemorrhage) - Esophageal reflux - Essential hypertension, malignant - Fibromyalgia - Hemorrhage of gastrointestinal tract, unspecified - Internal hemorrhoids without mention of complication - Internal hemorrhoids without mention of complication - Myalgia and myositis, unspecified - Obesity, unspecified - Obstructive sleep apnea (adult) (pediatric) - Other forms of migraine, without mention of intractable migraine without mention of status migrainosus - Peptic ulcer disease - Pure hypercholesterolemia - Unspecified essential hypertension - Unspecified functional disorder of stomach PAST SURGICAL HISTORY Procedure Laterality Date - APPENDECTOMY - BACK SURGERY HX - CHOLECYSTECTOMY - COLONOSCOP W/ OR W/O [facility] SPEC 10/06 Colonoscopy - COLONOSCOP W/ OR W/O [facility] SPEC 11/07/06 - EGD W/O [facility] SPECIMEN W/BX 11/07/06 - EGD W/O [facility] SPECIMEN W/BX 10/29/09 - EGD W/O OR W/BRUSH/WASH 10/06 EGD - EGD W/O OR W/BRUSH/WASH 06/09/2016 EGD - PAST SURGICAL HISTORY OF bilaterial CTR - PAST SURGICAL HISTORY OF right knee - PAST SURGICAL HISTORY OF right elbow - PAST SURGICAL HISTORY OF both feet surgeries x 6 - PAST SURGICAL HISTORY OF left cataract - PAST SURGICAL HISTORY OF 10/13 hyst at [facility] - PAST SURGICAL HISTORY OF 2010 Laparoscopic choleycystectomy and umbilical herniorhaphy - REMOVAL OF TONSILS,<13 Y/O Tonsillectomy FAMILY HISTORY Problem Relation Age of Onset - Hypertension Other - fibromyalgia' [OTHER] Other - back pain [OTHER] Other - pancreatic cancer [OTHER] Sister - Stroke Mother - Heart Father - Heart Brother Social History Substance Use Topics - Smoking status: Never Smoker - Smokeless tobacco: Never Used Comment: exposed to second hand smoke - Alcohol use Yes Comment: very occasional MEDICATIONS: Prior to Admission Medications: atenolol (TENORMIN) 25 mg tablet Take 25 mg by mouth twice daily. lidocaine (LIDODERM) 5 % Apply 1 Patch as directed every 24 hours. hydroxychloroquine (PLAQUENIL) 200 mg tablet Take 200 mg by mouth twice daily. gabapentin (NEURONTIN) 400 mg capsule Take 100 mg by mouth three times daily. zolpidem (AMBIEN) 10 mg tab Take by mouth at bedtime as needed. buPROPion SR (ZYBAN SR; WELLBUTRIN SR) 150 mg 12 hr tablet Take 150 mg by mouth twice daily. DULoxetine (CYMBALTA) 60 mg capsule Take 60 mg by mouth twice daily. rOPINIRole (REQUIP) 0.5 mg tablet Take 0.5 mg by mouth daily at bedtime. SUMAtriptan (IMITREX) 100 mg tablet Take 100 mg by mouth as needed. predniSONE 10 mg tablet Take 10 mg by mouth once daily. Takes either 3 days or 5 days IRON, FERROUS SULFATE, ORAL Take 65 mg by mouth once daily. FOLIC ACID ORAL Take 400 mg by mouth twice daily. esomeprazole mag trihydrate(NEXIUM 20 MG CAP) Take one(1) capsule daily. otuevalblr-bdnauoy-vitcttar-codeine (FIORINAL WITH CODEINE) capsule Take 1 capsule by mouth every 4 hours as needed. diphenoxylate-atropine (LOMOTIL) 2.5-0.025 mg per tablet Take 1 tablet by mouth three times daily as needed. oxyCODONE-acetaminophen (PERCOCET) 5-325 mg tablet Take 1 tablet by mouth twice daily. FIORICET 325 MG-40 MG-50 MG TAB as necessary Current hospital medications: lidocaine patch - REMOVE OTHER AT BEDTIME lidocaine - VERIFY PATCH OTHER q 8 H gabapentin 100 mg cap(s) (NEURONTIN) 100 mg ORAL TID hydroxychloroquine 200 mg (PLAQUENIL) 200 mg ORAL BID SUMAtriptan 100 mg tab(s) (IMITREX) 100 mg ORAL q 2 H PRN rOPINIRole 0.5 mg tab(s) (REQUIP) 0.5 mg ORAL AT BEDTIME metoprolol tartrate (short acting) 25 mg tab(s) (LOPRESSOR) 25 mg ORAL q 12 H folic acid 0.5 mg tab(s) 0.5 mg ORAL BID ferrous sulfate 325 mg tab(s) 325 mg ORAL BID w MEALS buPROPion SR 150 mg tab(s) (ZYBAN SR; WELLBUTRIN SR) 150 mg ORAL BID DULoxetine 60 mg cap(s) (CYMBALTA) 60 mg ORAL BID lidocaine 5 % 1 Patch (LIDODERM) 1 Patch TRANSDERMAL q 24 H pantoprazole 40 mg injection (PROTONIX) 40 mg INTRAVENOUS BID AC (0600/1600) 0.9% NaCl 3-5 mL 3-5 mL INTRAVENOUS q 12 H 0.9% NaCl 2-10 mL 2-10 mL INTRAVENOUS q 12 H acetaminophen 650 mg tab(s) (TYLENOL) 650 mg ORAL q 6 H PRN perflutren lipid microspheres 1.1 mg/mL 1.3 mL injection (DEFINITY) 1.3 mL INTRAVENOUS PRN(NO DISPENSE) zolpidem 5 mg tab(s) (AMBIEN) 5 mg ORAL HS PRN ALLERGIES Allergen Reactions - Cigarette Smoke [Ot* - Enviromental [Other] GI SPECIFIC REVIEW OF SYSTEMS: Positive for abdominal pain, diarrhea, dark stool (? Brown/black) Negative for nausea, vomiting, dysphagia, heartburn, acid reflux, constipation Negative for decreased appetite, decreased oral intake Negative for change in weight OTHER ROS: Negative for fever, night sweats, sleep problems, mood or depression. PAIN ASSESSMENT: HISTORY OF CHRONIC PAIN OR CURRENTLY BEING TREATED FOR A CHRONIC PAIN CONDITION: chronic headaches GENERAL: No weight loss, malaise or fevers HEENT: No changes in hearing or vision, no nose bleeds or other nasal problems, Positive for frequent headaches NECK: Negative for lumps, goiter, pain and significant neck swelling RESPIRATORY: Negative for cough, hemoptysis, wheezing, COPD, dyspnea or shortness of breath CARDIOVASCULAR: Hypertension, leg swelling : No history of dysuria, frequency or incontinence MUSCULOSKELETAL: Negative for joint pain or swelling, back pain or muscle pain SKIN: Negative for lesions, rash, and itching PSYCH: Negative for sleep disturbance, mood disorder and recent psychosocial stressors HEMATOLOGY/LYMPHOLOGY: Negative for prolonged bleeding, bruising easily or swollen nodes ENDOCRINE: Negative for cold or heat intolerance, polyuria, polydipsia and goiter NEURO: No history of headaches, syncope, paralysis, seizures or tremors Objective PHYSICAL EXAM: BP 150/69 Pulse 87 Temp 36.9 ?C (98.4 ?F) (Oral) Resp 18 Ht 149.9 cm (4' 11.02) Wt 92.4 kg (203 lb 9.6 oz) SpO2 98% BMI 41.1 kg/m2 GENERAL- AAO x 3, no distress. No jaundice or scleral icterus HEENT: Moist mucus membranes. Tongue pink and midline LUNGS: Clear to auscultation bilaterally CARDIAC: S1, S2 heard, no murmur appreciated ABDOMEN: Soft, non-tender without guarding or rigidity, normal bowel sounds EXTREMITIES: Mild lower extremity edema DATA: Diagnostic Tests Reviewed for Today's Visit: Most recent labs and imaging results. CBC, Coags, BMP, Mg, Phos Recent Labs 09/21/17 0331 HB 7.3* HCT 26.1* NA 141 K 4.2 CHLOR 113* CO2 21 BUN 15 CREAT 1.26* GLUC 78 CA 8.7 MG 2.4 CSF AND Dilantin Liver Function, Amylase, AND Lipase Recent Labs 09/21/17 0331 TPROT 6.3* ALB 3.1* ALT 18 AST 15 ALKPHOS 89 TBILI 0.2 No abdominal imaging PT/INT (done at [place]) 13/1.0 Impression/Recommendations GI bleed - Has a history of iron deficiency anemia and was taking iron supplementation at home. ? Of melena. Also saw some bright red streaks. Hgb 7.3 today. No BM since. Last EGD/colonoscopy was in 2015. Stopped taking Xarelto in January 2017 - Continue Protonix - Plan EGD today with Dr. Long - Monitor Hgb/Hct - transfuse as needed - Monitor BMs for bleeding Anemia due to acute blood loss - Monitor Hgb/Hct - transfuse as needed - Continue iron supplementation GI will continue to follow Thank you for the consult SIGNATURE: ZOE Beach PATIENT NAME: Jolene Akhtar DATE: September 21, 2017 TIME: 8:55 AM PAGER/CONTACT #: [phone] NURSING PROG Observed: 09/21/2017 Status: COMPLETED Source: [place] 4:53 AM CLINIC OTHER CAMPUS REPOSITORY HNO ID: [id number] Author: Chela (Rn) Candy, MINH Service: (none) Author Type: Registered Nurse Type: Nursing Progress Note Filed: 09/21/2017 5:37 AM Note Text: Nursing Progress Note Patient Name: Jolene Akhtar Patient Location: [place] [id number] [address]* Daily Note: Report called to MINH Pineda on 8100. Pt transferred to 8101 bed 1. This note was completed by: Chela Gupta RN URINALYSIS ROUTINE Collected: 09/21/2017 Status: F Source: [facility] 4:27 AM HEALTH SYSTEM REPOSITORY TYPE CODE TESTS RESULT OUT OF REFERENCE UNITS RANGE LAB COLOR(LOIN C) Urine Color YELLOW LAB APPUR(LOIN C) Urine Appearance CLEAR LAB GLUUR(LOIN Negative mg/dL C) Glucose Urine NEGATIVE LAB KETON(LOIN Negative mg/dL C) Ketone Urine NEGATIVE LAB HGBUR(LOIN Negative C) Hemoglobin,Urine NEGATIVE LAB PROTU(LOIN Negative mg/dL C) Protein Urine NEGATIVE LAB NITRI(LOIN Negative C) Nitrites Urine NEGATIVE LAB BILIU(LOIN Negative C) Bilirubin Urine NEGATIVE LAB SPG(LOINC) 1.005-1.030 Specific [place], Ur 1.011 LAB PHUR(LOINC 5.0-8.0 ) pH,Urine 5.5 LAB UROBI(LOIN 0.0-1.0 EU/dL C) Urobilinogen,Ur 0.2 LAB LEUKO(LOIN Negative C) Leukocytes NEGATIVE Esterase LAB RBCU1(LOIN 0.0-5.0 /hpf C) RBC,Urine 0.6 LAB WBCU1(LOIN 0.0-5.0 /hpf C) WBC, Urine 3.6 LAB EPIT1(LOIN 0.0-5.0 /hpf C) Ep Cells High Urine 5.3 LAB BACT1(LOIN None C) Bacteria Urine NONE LAB HYCA1(LOIN 0.0-1.0 /lpf C) Hyaline Cast 0.0 Performed By: #### URIN2 #### [facility] [address] [place] [address] HGB Collected: 09/21/2017 Status: F Source: [facility] 3:31 AM HEALTH SYSTEM REPOSITORY TYPE CODE TESTS RESULT OUT OF RANGE REFERENCE UNITS LAB HGBI(LOINC) 11.2-15.7 g/dL Low Hgb 7.3 Performed By: #### HGBI #### [facility] [address] [place] [address] HCT Collected: 09/21/2017 Status: F Source: [facility] 3: AM HEALTH SYSTEM REPOSITORY TYPE CODE TESTS RESULT OUT OF RANGE REFERENCE UNITS LAB HCTI(LOINC) 34.1-44.9 % Low Hct 26.1 Performed By: #### HCTI #### [facility] [address] [place] [address] COMPREHENSIVE PANEL Collected: 09/21/2017 Status: F Source: [facility] 3: AM HEALTH SYSTEM REPOSITORY TYPE CODE TESTS RESULT OUT OF REFERENCE UNITS RANGE LAB NA(LOINC) 136-145 mEq/L Sodium Blood 141 LAB K(LOINC) 3.5-5.1 mEq/L Potassium Blood 4.2 LAB CL(LOINC) 98-107 mEq/L Chloride High Blood 113 LAB CO2(LOINC) 21-32 mEq/L CO2 Blood 21 LAB GLU(LOINC) 70-99 mg/dL Glucose Blood 78 LAB BUN(LOINC) 7-18 mg/dL BUN Blood 15 LAB CREA(LOINC 0.51-0.95 mg/dL ) Creatinine High Blood 1.26 LAB CA(LOINC) 8.5-10.1 mg/dL Calcium Blood 8.7 LAB ALB(LOINC) 3.4-5.0 g/dL Low Albumin Blood 3.1 LAB TP(LOINC) 6.4-8.2 g/dL Low Total Protein 6.3 LAB AST(LOINC) 9-37 U/L AST-SGOT Blood 15 LAB ALT(LOINC) 12-78 U/L ALT-SGPT Blood 18 LAB ALKP(LOINC 46-116 U/L ) Alk Phosphatase 89 LAB BILIT(LOIN 0.2-1.0 mg/dL C) Total Bilirubin 0.2 LAB ANGAP(LOIN 8-16 C) Anion Gap 11 Performed By: #### P14 #### [place] [address] MAGNESIUM BLOOD Collected: 09/21/2017 Status: F Source: [facility] 3:31 AM HEALTH SYSTEM REPOSITORY TYPE CODE TESTS RESULT OUT OF REFERENCE UNITS RANGE LAB MAG(LOINC) 1.6-2.6 mg/dL Magnesium Blood 2.4 Performed By: #### MAG #### [place] [address] MDRD GFR Collected: 09/21/2017 Status: F Source: [facility] 3:31 AM HEALTH SYSTEM REPOSITORY TYPE CODE TESTS RESULT OUT OF RANGE REFERENCE UNITS LAB GFRFN(LOINC >60mL/min/1.73m ) 2 eGFR 40.72 Result Comment: If the patient is , multiply the result by 1.210. Performed By: #### GFR #### [place] [address] TSH, 3RD GENERATION Collected: 09/21/2017 Status: F Source: [facility] 3:31 AM HEALTH SYSTEM REPOSITORY TYPE CODE TESTS RESULT OUT OF REFERENCE UNITS RANGE LAB TSH3(LOINC 0.358-3.740 uIU/mL ) TSH, 3rd generation 0.726 Performed By: #### TSH3 #### [place] [address] OPERATIVE NO Observed: 09/21/2017 Status: COMPLETED Source: [place] 12:00 AM CLINIC OTHER CAMPUS REPOSITORY O ID: [id number] Author: Seth Long Service: Gastroenterology Author Type: Physician Type: Operative Report Filed: 09/22/2017 8:19 AM Note Text: [facility] - Operative Report SURGEON: Seth Long MD PATIENT NAME: JOLENE AKHTAR CSN: [id number] DATE OF SURGERY: 09/21/2017 DATE OF : 1935 SEX/AGE: F/82 PATIENT TYPE: I HOSP SVC: INTM LOCATION: [id number] DATE OF SURGERY: 09/21/2017 SURGEON: Seth Long MD REFERRING PHYSICIAN: Mary Villa DO PROCEDURE: Esophagogastroduodenoscopy with biopsies. INDICATIONS: This is an 82-year-old female with chronic iron deficiency anemia, but she has had an acute drop in her hemoglobin. She denies any gross evidence of GI blood loss with exception of apparently some red streaks in her stool recently. Her stools are always dark because she is on oral iron. She had a prior EGD and colonoscopy in June 2016 at [place]. No etiology for the anemia was found at that time. POSTPROCEDURE DIAGNOSES: 1. 6 cm hiatal hernia. 2. 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 These are likely cause for her iron deficiency anemia. 3. Antral biopsies obtained to rule out H pylori. PROCEDURE IN DETAIL: Informed consent was obtained after explaining to the patient indications, benefits, alternative tests, and risks including, but not limited to perforation, bleeding, phlebitis, and medication reactions. Medication was MAC sedation, the patient was adequately sedated. The Olympus video upper endoscope was advanced under direct visualization to the second portion of the duodenum. The duodenal bulb and second portion appeared grossly normal. Stomach on direct views demonstrated some mild antral gastritis. Retroflex view showed a large hiatal hernia, and there were about 4 erosions seen on the gastric aspect to the hiatal hernia sac. These were not bleeding. These are consistent with Darien's erosions. I did obtain biopsies again from the gastric antrum to rule out H pylori. In the esophagus, the diaphragmatic hiatus was at 39 cm from the incisors. The Z-line at margin of gastric folds were at 33 cm from the incisors. Thus, there was a 6 cm hiatal hernia that was seen. The esophageal mucosa appeared normal throughout. The patient tolerated the procedure without any immediate complication. RECOMMENDATIONS: 1. Follow up pathology results. 2. Etiology for her anemia is likely the Darien erosions. However, since she has not had evaluation of her small bowel, I would recommend small bowel video capsule endoscopy. Since patient has been on oral iron this will need to be held for a week and study done as outpatient 3. Follow serial H and H. If hemoglobin remains stable, it will be okay to discharge the patient home tomorrow after video capsule study is done. 4. We would recommend increasing her Nexium dosing from 20 mg daily to 40 mg daily in an effort to heal the Darien erosions. Seth Long MD Gastroenterology KEVIN:modl /[id number] cc:MD Mary Velásquez DO SURGICAL TISSUE EXAM Observed: 09/21/2017 Status: UNK Source: [facility] 12:00 AM HEALTH SYSTEM REPOSITORY Test performed at [place] [address] NAME: JOLENE AKHTAR REQUESTING: SETH LONG M.D. REPORT AMENDED FOR: Corrected requesting physician. MERE BENITES M.D., PATHOLOGIST (Electronic signature on file) Signed out: 09/27/2017 16:28 FINAL DIAGNOSIS: GASTRIC ANTRUM, BIOPSIES - MINIMAL CHRONIC GASTRITIS. NEGATIVE FOR HELICOBACTER ORGANISMS. H. PYLORI IMMUNOSTAIN REVIEWED. OPERATIVE PROCEDURE: EGD CLINICAL INFORMATION: Anemia, GI bleed; Hiatal hernia and erosions GROSS DESCRIPTION: Antral biopsy Received in formalin labeled antral biopsy are two segments of sandoval soft tissue aggregating to 0.7 x 0.2 x 0.1 cm. The specimen is totally submitted in formalin in one cassette. Levels x 3. H. pylori. [facility] MERE BENITES M.D., PATHOLOGIST (Electronic signature on file) Signed out: 09/22/2017 14:52 PRINTED: 09/25/2017 Page 1 of 1 Performed By: #### SURG #### [place] [address] EMERGENCY DEPARTMENT Observed: 09/20/2017 Status: F Source: [place] SUMMARY 11:58 PM [facility] HOSPITAL REPOSITORY [facility] Medical Records Department [address] [place] [address] Emergency Department Summary 09/20/17 1630 MR#: [id number] Acct: [id number] Name: JOLENE AKHTAR Rep #: [id number] : 1935 82 From: Arya Chambers MD PCP: Candice Amado DO Status: DEP ER - ER Visit Summary Date of Service: 09/20/17 Chief Complaint: Diarrhea History of Present Illness: The patient is a 82 F who sees Heidi Nelson. She reports that she has diarrhea that began 2-3 week ago. She is having this 2-3 times per day. She reports that she did not have any last evening and has not had any today. Ports there is 1-2 drops of bright red blood. However, the diarrhea itself is black. She is on iron, but reports that it is very foul-smelling. She complains of an aching diffuse abdominal pain that is 8 out of 10 at worst and 5 out of 10 currently. Is worsened by nothing and relieved by having a bowel movement. Patient reports she is short of breath with walking. She denies any chest pain. She has ankle and leg swelling over the same timeframe as the diarrhea that she has not had previously to this degree. She also complains of generalized weakness. Physical Examination: Vitals: Stable. Afebrile. General: Well-nourished and well-developed. Head: Normocephalic atraumatic. Neck: Supple, no lymphadenopathy. No JVD. Nontender. Cardiovascular: Regular rate and rhythm. No murmurs. Respiratory: No respiratory distress. Clear to auscultation bilaterally. Abdominal: Soft, mild diffuse sinus palpation that is worst in the epigastric region, nondistended, normal bowel sounds. No guarding, rebound, or peritoneal signs. Back: Nontender. Extremities: Nontender, no edema. Skin: Normal color, no rash. Neurologic: Alert and oriented 3. Cranial nerves II through XII are intact. Normal strength and sensation. Psych: Normal affect. Test Results: CBC is remarkable for an H AND H of 7.3 and 25.9, segmented neutrophils of 74, lymphocytes of 12, monocytes of 11. Her last hemoglobin was on June 162016 and at that time it was 13.1. Was 9.5-11.4 the remainder of 2017. Chem- 7 is marked for chloride of 110, calcium 8.4, creatinine 1.25. LFTs marked for total protein is 6.2, albumin of 3.0, AST of 13. Lipase is normal. INR is 1.0. PTT is 25.0. Chest x-ray shows a large hiatal hernia. Emergency Department Course and Treatment: Patient had an IV placed. She was given a 500 cc bolus of normal saline. She was given Protonix IV. Orthostatic vital signs were negative. However, she was very short of breath with ambulating to the bathroom. Treatment Plan: Patient was discussed with Dr. Dumont who is reviewed her records. She states because of the hiatal hernia and the potential of bleeding from that that the patient needs to be transferred as this is out of her scope of practice. I discussed this with the patient and her family. They have opted to go to [facility]. She was discussed with Dr. Villa who is accepted her in transfer. Disposition: Transferred in stable condition. Impression: 1. Anemia, acute. 2. Diarrhea. 3. Hiatal hernia. This note was generated with Plasmonixation software. It may contain incorrect words, spelling, and punctuation that were not noted in review of the chart prior to signing ED Disposition - Plan for ED Patient: Chief Complaint: Nausea/Vomiting/Diarrhea Referrals: Heidi Mack [ALLIED HEALTH PROFESSIONAL] - What to do if you have Problems For any increased pain, shortness of breath, bleeding, nausea or vomiting, chest pain, or any unexpected problems, contact your Primary Care Provider. Call [facility] ([phone]) or report to the closest Emergency Room. Call 911 if necessary. 09/20/17 4733 <Electronically signed by Arya Chambers MD> Date Arya Chambers MD Cosigner Signature (If Indicated): Date CC: Candice Amado DO HISTORY PHYSICAL Observed: 09/20/2017 Status: COMPLETED Source: [place] 10:42 PM CLINIC OTHER CAMPUS REPOSITORY O ID: [id number] Author: Mary Villa Service: Hospital Medicine Author Type: Physician Type: HANDP Filed: 09/20/2017 10:48 PM Note Text: DEPARTMENT OF HOSPITAL MEDICINE HISTORY AND PHYSICAL EXAM SERVICE DATE: 09/20/2017 SERVICE TIME: 10:42 PM Primary Care Physician: Heidi Mack CNP NIGHT AND WEEKEND COVERAGE: After 7pm, please call cross cover pager #[phone] Subjective CHIEF COMPLAINT: Fatigue, sob, anemia HPI: This is a 82 year old female who presents with increased fatigue and sob over the past 2-3 weeks. She has also been having black diarrhea multiple times per day during this. She was able to walk with a cane, but has had to transition to a walker. She also noted increased in swelling in her legs. No cp or palp. +BRAGA. No cough. Compliant with all meds. Went to doctor and was told that her blood count was low and should come in. Had cscope in 2016 for anemia showing polyps. Had EGD in past and was told PUD and large hiatal hernia. Has taken occasional excedrin migraine (ASA) and has been on prednisone. PAST MEDICAL HISTORY Diagnosis Date - Acute gastritis without mention of hemorrhage - Acute gastritis without mention of hemorrhage - Acute gastritis without mention of hemorrhage - Anal fissure - Anxiety state, unspecified - Degeneration of intervertebral disc, site unspecified - Depressive disorder, not elsewhere classified - Diaphragmatic hernia without mention of obstruction or gangrene - Diaphragmatic hernia without mention of obstruction or gangrene - Diverticulosis of colon (without mention of hemorrhage) - Esophageal reflux - Essential hypertension, malignant - Fibromyalgia - Hemorrhage of gastrointestinal tract, unspecified - Internal hemorrhoids without mention of complication - Internal hemorrhoids without mention of complication - Myalgia and myositis, unspecified - Obesity, unspecified - Obstructive sleep apnea (adult) (pediatric) - Other forms of migraine, without mention of intractable migraine without mention of status migrainosus - Peptic ulcer disease - Pure hypercholesterolemia - Unspecified essential hypertension - Unspecified functional disorder of stomach PAST SURGICAL HISTORY Procedure Laterality Date - APPENDECTOMY - BACK SURGERY HX - CHOLECYSTECTOMY - COLONOSCOP W/ OR W/O [facility] SPEC 10/06 Colonoscopy - COLONOSCOP W/ OR W/O [facility] SPEC 11/07/06 - EGD W/O [facility] SPECIMEN W/BX 11/07/06 - EGD W/O [facility] SPECIMEN W/BX 10/29/09 - EGD W/O OR W/BRUSH/WASH 10/06 EGD - EGD W/O OR W/BRUSH/WASH 06/09/2016 EGD - PAST SURGICAL HISTORY OF bilaterial CTR - PAST SURGICAL HISTORY OF right knee - PAST SURGICAL HISTORY OF right elbow - PAST SURGICAL HISTORY OF both feet surgeries x 6 - PAST SURGICAL HISTORY OF left cataract - PAST SURGICAL HISTORY OF 10/13 hyst at [facility] - PAST SURGICAL HISTORY OF 2010 Laparoscopic choleycystectomy and umbilical herniorhaphy - REMOVAL OF TONSILS,<12 Y/O Tonsillectomy FAMILY HISTORY Problem Relation Age of Onset - Hypertension Other - fibromyalgia' [OTHER] Other - back pain [OTHER] Other - pancreatic cancer [OTHER] Sister - Stroke Mother - Heart Father - Heart Brother Social History Substance Use Topics - Smoking status: Never Smoker - Smokeless tobacco: Never Used Comment: exposed to second hand smoke - Alcohol use Yes Comment: very occasional MEDICATIONS: Reviewed Prescriptions Prior to Admission: atenolol (TENORMIN) 25 mg tablet Take 25 mg by mouth twice daily. Disp: Rfl: 09/20/2017 at 1000 lidocaine (LIDODERM) 5 % Apply 1 Patch as directed every 24 hours. Disp: Rfl: Past Week at Unknown time hydroxychloroquine (PLAQUENIL) 200 mg tablet Take 200 mg by mouth twice daily. Disp: Rfl: 09/20/2017 at 1000 gabapentin (NEURONTIN) 400 mg capsule Take 100 mg by mouth three times daily. Disp: Rfl: 09/20/2017 at 1000 zolpidem (AMBIEN) 10 mg tab Take by mouth at bedtime as needed. Disp: Rfl: 09/19/2017 at 2100 buPROPion SR (ZYBAN SR; WELLBUTRIN SR) 150 mg 12 hr tablet Take 150 mg by mouth twice daily. Disp: Rfl: 09/20/2017 at 1000 DULoxetine (CYMBALTA) 60 mg capsule Take 60 mg by mouth twice daily. Disp: Rfl: 09/20/2017 at 1000 rOPINIRole (REQUIP) 0.5 mg tablet Take 0.5 mg by mouth daily at bedtime. Disp: Rfl: 09/19/2017 at 2100 SUMAtriptan (IMITREX) 100 mg tablet Take 100 mg by mouth as needed. Disp: Rfl: Past Week at Unknown time predniSONE 10 mg tablet Take 10 mg by mouth once daily. Takes either 3 days or 5 days Disp: Rfl: 09/20/2017 at 1000 IRON, FERROUS SULFATE, ORAL Take 65 mg by mouth once daily. Disp: Rfl: 09/20/2017 at 1000 FOLIC ACID ORAL Take 400 mg by mouth twice daily. Disp: Rfl: 09/20/2017 at 1000 esomeprazole mag trihydrate(NEXIUM 20 MG CAP) Take one(1) capsule daily. Disp: Rfl: 0 09/20/2017 at 1000 vlcumtvvrb-ehdobks-obfwwzaw-codeine (FIORINAL WITH CODEINE) capsule Take 1 capsule by mouth every 4 hours as needed. Disp: Rfl: 06/08/2016 at Unknown time diphenoxylate-atropine (LOMOTIL) 2.5-0.025 mg per tablet Take 1 tablet by mouth three times daily as needed. Disp: Rfl: Unknown at Unknown time oxyCODONE-acetaminophen (PERCOCET) 5-325 mg tablet Take 1 tablet by mouth twice daily. Disp: Rfl: Past Week at Unknown time FIORICET 325 MG-40 MG-50 MG TAB as necessary Disp: Rfl: 0 06/09/2016 at 0800 ALLERGIES Allergen Reactions - Cigarette Smoke [Ot* - Enviromental [Other] REVIEW OF SYSTEM: GENERAL: No weight loss, malaise or fevers HEENT: chronic migraine NECK: Negative for lumps, goiter, pain and significant neck swelling RESPIRATORY: Dyspnea, Shortness of breath CARDIOVASCULAR: See HPI GI: See HPI MUSCULOSKELETAL: chronic neck and pain pain, joint pains HEMATOLOGY/LYMPHOLOGY: See HPI ENDOCRINE: Negative for cold or heat intolerance, polyuria, polydipsia and goiter NEURO: Migraine headaches Objective PHYSICAL EXAM: BP 160/68 Pulse 92 Temp (Src) 98.8 (Oral) Resp 16 SpO2 97% Physical Exam Performed: GENERAL: Alert, no distress, cooperative, Obese HEAD/SINUSES: No significant findings EYES: PERRLA, EOMI OROPHARYNX: Lips, mucosa, and tongue normal. Teeth and gums normal. Oropharynx normal. NECK: No jugulovenous distention, Supple LUNGS: Lungs clear to auscultation, Good diaphragmatic excursion CARDIAC: Normal S1 and S2; no rubs, murmurs, or gallops ABDOMEN: soft ttp epigastrium wo r/g/r +BS EXTREMITIES: 2+ edema bilat LE with calf pain. NEURO: Grossly normal cognition, motor function, and cranial nerves III-XII Lines, Drains, and Airways No matching active lines, drains, or airways Reviewed lines, drains, AND airways. Need to be continued DATA: Diagnostic tests reviewed for today's visit: Most recent labs and imaging results. Assessment/Plan Principal Problem: GI bleed POA: Yes Assessment AND Plan: H/H every 6 hours. Transfuse <7. PPI every 12 hours. GI consult for possible EGD. Active Problems: Anemia due to acute blood loss POA: Yes Assessment AND Plan: transfuse <7. PPI BID. Monitor closely. Leg swelling POA: Yes Assessment AND Plan: check US to rule out DVT. HO DVT but not actively taking xarelto. Brook elizabethe bilat. Check UA, TSH and echo. Essential hypertension POA: Yes Assessment AND Plan: cont with home meds. Diaphragmatic hernia POA: Yes Assessment AND Plan: GI to see. May have developed ulcer. Peptic ulcer disease POA: Yes Assessment AND Plan: PPI every 12 hours. GI to see. Fibromyalgia POA: Yes Assessment AND Plan: cont with meds. I am holding her prednisone at this time due to possible bleeding. If no active bleeding noted, can be resumed if ok with GI. Hypercholesteremia POA: Yes Assessment AND Plan: cont with rx. FRANCES (obstructive sleep apnea) POA: Yes Assessment AND Plan: weight loss, and lifestyle modification. Migraine headache POA: Yes Assessment AND Plan: no excedrin. imitrex if needed. Obesity, unspecified POA: Yes Assessment AND Plan: weight loss and lifestyle modification needed. Resolved Problems: * No resolved hospital problems. * VTE Prophylaxis: Pneumatic Compression Device Disposition: Home with [facility] Plan of care discussed with: Patient and Family/Other: son SIGNATURE: Mary Villa DO PATIENT NAME: Jolene Akhtar DATE: September 20, 2017 TIME: 10:42 PM PAGER/CONTACT #: [phone] NURSING PROG Observed: 09/20/2017 Status: COMPLETED Source: [place] 9:40 PM CLINIC OTHER CAMPUS REPOSITORY O ID: [id number] Author: Chela (Rn) MINH Gupta Service: (none) Author Type: Registered Nurse Type: Nursing Progress Note Filed: 09/20/2017 9:52 PM Note Text: Nursing Progress Note Patient Name: Jolene Akhtar Patient Location: [id number]* Transfer Note: Patient transferred from [place] ER to room/unit 5403 in stable condition. Actions taken: Report received from MINH Avelar. Patient belongings with patient. Oriented to room, call light, and fall precautions. Sound notified regarding arrival. All current needs met at this time. Awaiting orders. Will CTM. This note was completed by: Chela Gupta RN PROTHROMBIN TIME W/INR Collected: 09/20/2017 Status: F Source: [place] 4:30 PM [facility] REPOSITORY TYPE CODE TESTS RESULT OUT OF RANGE REFERENCE UNITS LAB L300.4150 11.7-14.9 SECONDS Normal PROTIME 13.0 LAB L300.4200 Normal INR 1.0 Performed By: #### L300.3900, L300.4310 #### [facility] [address] [place], [place], [address] PARTIAL THROMBOPLAST Collected: 09/20/2017 Status: F Source: [place] TIME 4:30 PM [facility] REPOSITORY TYPE CODE TESTS RESULT OUT OF RANGE REFERENCE UNITS LAB L300.4310 24.1-36.2 Seconds Normal PTT 25.0 Performed By: #### L300.3900, L300.4310 #### [facility] [address] [place], [address] BASIC METABOLIC Collected: 09/20/2017 Status: F Source: [place] PROFILE (BMP) 4:30 PM [facility] REPOSITORY TYPE CODE TESTS RESULT OUT OF RANGE REFERENCE UNITS LAB L501.0100 74-106 mg/dL Normal GLU 100 Result Comment: Fasting Glucose result from 100 to 125 mg/dL suggests IMPAIRED HOMEOSTASIS per A.D.A. criteria. Please note revised GLUCOSE reference range effective 2017. LAB L501.1000 7-18 mg/dL Normal BUN 17 LAB L501.1100 0.55-1.02 mg/dL High CREAT,SERUM 1.25 Result Comment: The validity of the calculated GFR AND GFRAA in patients over 70 years has not been determined. Clinical correlation is essential. LAB L501.1110 >60 mL/min Low EST GFR 44 Result Comment: Non- GFR Calc LAB L501.1115 >60 mL/min Low EST GFR - AA 53 Result Comment: GFR Calc LAB L501.1255 ml/min Normal Estimated CRCL 49.15 LAB L501.1300 10-20 RATIO Normal BUN/CRE 13.6 LAB L501.2200 8.5-10 mg/dL Low .1 CA 8.4 LAB L501.5300 136-14 mmol/L Normal 5 NA 144 LAB L501.5600 3.5-5. mmol/L Normal 1 K 4.0 LAB L501.5900 98-107 mmol/L High CL 110 LAB L501.6100 21.0-3 mmol/L Normal 2.0 CO2 23.0 LAB L501.6200 5-15 Normal GAP 11 Performed By: #### L500.2500, L500.3400, L501.2450 #### [facility] [address] [place], [place], [id number] LIVER PROFILE Collected: 09/20/2017 Status: F Source: [place] 4:30 PM [facility] REPOSITORY TYPE CODE TESTS RESULT OUT OF RANGE REFERENCE UNITS LAB L501.1500 6.4-8.2 g/dL Low T PROT 6.2 LAB L501.1800 3.2-5.0 g/dL Low ALB 3.0 LAB L501.1950 2.2-4.2 g/dL Normal GLOB 3.2 LAB L501.4100 15-37 U/L Low AST 13 LAB L501.4305 45-117 U/L Normal ALK P 84 LAB L501.4405 13-56 U/L Normal ALT 19 Result Comment: Please note revised ALT reference range effective 2017. LAB L501.4600 0.20-1.00 mg/dL Normal T BILI 0.20 LAB L501.4700 0.00-0.30 mg/dL Normal D BILI 0.07 Performed By: #### L500.2500, L500.3400, L501.2450 #### [facility] [address] [place], [place], [id number] LIPASE Collected: 09/20/2017 Status: F Source: [place] 4:30 PM [facility] REPOSITORY TYPE CODE TESTS RESULT OUT OF RANGE REFERENCE UNITS LAB L501.2450 73-393 U/L Normal LIPASE 115 Performed By: #### L500.2500, L500.3400, L501.2450 #### [facility] [address] [place], [address] TYPE AND SCREEN Collected: 09/20/2017 Status: F Source: [place] 4:30 PM [facility] REPOSITORY Order Comment: Reason for Type AND Screen/Red Cells: HEMORRHAGE, GI BLEED TYPE CODE TESTS RESULT OUT OF RANGE REFERENCE UNITS LAB B10.0800 A Normal BLOOD TYPE GEL POSITIVE LAB B100.4000 Normal Antibody NEGATIVE Screen Performed By: #### B101.7450 #### [facility] [address] [facility] [place], [address] CHEST 1 VIEW Observed: 09/20/2017 Status: F Source: [place] (PORTABLE) 4:25 PM [facility] REPOSITORY [facility] Imaging Services [address] [place] [address] Chest 1 View (Portable) MR#: [id number] Acct: [id number] Name: JOLENE AKHTAR Rep #: [id number] : 1935 F 82 From: Lyle Marks MD PCP: Candice Amado DO Status: REG ER Study: Chest 1 View (Portable) Date of Exam: 09/20/17 Exam# [id number] Ordering Dr: Arya Chambers MD STUDY: X-RAY CHEST REASON FOR EXAM: Female, 82 years old. COMPLAINS OF N/V/D, ABD PAIN, EDEMA BILATERAL LEGS FOR PAST 2-3 WEEKS. FATIGUED, SOB TECHNIQUE: Single frontal view of the chest. COMPARISON: None. FINDINGS: Chronic appearing increased interstitial lung markings. There is a hiatal hernia. There is no demonstrated pleural abnormality. Enlarged heart size. Normal mediastinum and georgi. Normal visualized pulmonary arteries. There is atherosclerotic calcification of the aortic arch with tortuosity. There are diffuse degenerative changes of the visualized thoracic spine. There is degenerative osteoarthritis of the bilateral shoulders. There is no demonstrated abnormality of the visualized soft tissue structures of the upper abdomen. RAD/Chest 1 View (Portable) IMPRESSION: There are no acute findings. Large hiatal hernia. Cardiomegaly. Electronically Signed: Lyle Marks MD at 16:57 EST , Service support , CC: Candice Amado DO; Arya Chambers MD Dental Treatment Coordinator: Signed CBC W/DIFF, AUTOMATED Collected: 09/20/2017 Status: F Source: [place] 2:16 PM [facility] REPOSITORY Order Comment: Order Date: 09/20/17 Order Info: 0184-1 - CBCD TYPE CODE TESTS RESULT OUT OF RANGE REFERENCE UNITS LAB L100.1000 4.4-11.0 K/mm3 Normal WBC 7.6 LAB L100.1200 4.2-5.4 M/mm3 Low RBC 2.72 LAB L100.1300 12.0-15.0 g/dl Low HGB 7.3 LAB L100.1400 37-47 % Low HCT 25.9 LAB L100.1500 81-99 fL Normal MCV 95.2 LAB L100.1600 27.0-32.0 pg Low MCH 26.8 LAB L100.1700 32-36 g/gl Low MCHC 28.2 LAB L100.1810 11.6-14.6 % High RDW CV 17.9 LAB L100.1820 35.1-43.9 fl High RDW SD 59.2 LAB L100.1900 150-450 K/mm3 Normal PLT 369 LAB L100.2000 6.2-12.0 fl Normal MPV 9.3 LAB L100.2100 47-70 % High NEUT% 74.0 LAB L100.2200 19-41 % Low LY% 12.2 LAB L100.2300 0-10 % High MONO% 11.1 LAB L100.2400 0-5 % Normal EO% 2.1 LAB L100.2500 0-1 % Normal BASO% 0.5 LAB L100.2550 0.0-0.9 % Normal IM GRAN % 0.100 Result Comment: IG% - Immature Granulocytes (promyelocytes, myelocytes and metamyelocytes) > 1% indicates that a LEFT SHIFT is Present. LAB L100.2620 2.0-7.7 X10 3/uL Normal Absolute Neut 5.6 LAB L100.2720 0.83-4.51 X10 3/ul Normal Absolute Lymph 0.92 Performed By: #### L100.0100 #### [facility] [address] [place], [address] HOSP Observed: 09/20/2017 Status: COMPLETED Source: [place] 12:00 AM CLINIC OTHER CAMPUS REPOSITORY Patient:Jolene Akhtar MRN: <[id number]> Height:4' 11.016(1.499 m) Weight:203 lb 9.6 oz (92.352 kg) Outpatient Medications as of 09/21/17: atenolol (TENORMIN) 25 mg tablet lidocaine (LIDODERM) 5 % hydroxychloroquine (PLAQUENIL) 200 mg tablet gabapentin (NEURONTIN) 400 mg capsule kmpqksqleb-ypzpoty-lbolomuk-codeine (FIORINAL WITH CODEINE) capsule zolpidem (AMBIEN) 10 mg tab diphenoxylate-atropine (LOMOTIL) 2.5-0.025 mg per tablet buPROPion SR (ZYBAN SR; WELLBUTRIN SR) 150 mg 12 hr tablet DULoxetine (CYMBALTA) 60 mg capsule rOPINIRole (REQUIP) 0.5 mg tablet SUMAtriptan (IMITREX) 100 mg tablet oxyCODONE-acetaminophen (PERCOCET) 5-325 mg tablet predniSONE 10 mg tablet IRON, FERROUS SULFATE, ORAL FOLIC ACID ORAL esomeprazole mag trihydrate(NEXIUM 20 MG CAP) FIORICET 325 MG-40 MG-50 MG TAB Admission/Clinic Administered Medications as of 09/21/17: lidocaine patch - REMOVE lidocaine - VERIFY PATCH gabapentin 100 mg cap(s) (NEURONTIN) hydroxychloroquine 200 mg (PLAQUENIL) SUMAtriptan 100 mg tab(s) (IMITREX) rOPINIRole 0.5 mg tab(s) (REQUIP) metoprolol tartrate (short acting) 25 mg tab(s) (LOPRESSOR) folic acid 0.5 mg tab(s) ferrous sulfate 325 mg tab(s) buPROPion SR 150 mg tab(s) (ZYBAN SR; WELLBUTRIN SR) DULoxetine 60 mg cap(s) (CYMBALTA) lidocaine 5 % 1 Patch (LIDODERM) pantoprazole 40 mg injection (PROTONIX) 0.9% NaCl 3-5 mL 0.9% NaCl 2-10 mL acetaminophen 650 mg tab(s) (TYLENOL) perflutren lipid microspheres 1.1 mg/mL 1.3 mL injection (DEFINITY) zolpidem 5 mg tab(s) (AMBIEN) Problem List: Anxiety state, unspecified [F41.1] Esophageal reflux [K21.9] Degeneration of intervertebral disc, site unspecified [LIE7393] Unspecified functional disorder of stomach [K31.9] Pure hypercholesterolemia [E78.00] Acute gastritis without mention of hemorrhage [K29.00] Diaphragmatic hernia [K44.9] Peripheral vascular disease (HCC) [I73.9] Depression [F32.9] GERD (gastroesophageal reflux disease) [K21.9] Chronic rheumatic arthritis (HCC) [M06.9] PUD (peptic ulcer disease) [K27.9] HTN (hypertension) [I10] Restless leg syndrome [G25.81] Renal insufficiency [N28.9] Fibromyalgia [M79.7] Hypercholesteremia [E78.00] Dysphagia [R13.10] FRANCES (obstructive sleep apnea) [G47.33] Iron deficiency anemia due to chronic blood loss [D50.0] Essential hypertension [I10] Migraine headache [G43.909] Obstructive sleep apnea (adult) (pediatric) [G47.33] Obesity, unspecified [E66.9] Peptic ulcer disease [K27.9] GI bleed [K92.2] Anemia due to acute blood loss [D62] Leg swelling [M79.89] Anemia [D64.9] Allergies: cigarette smoke [Other] enviromental [Other] Date Verified: 09/21/17 Lab Values Lab Value Units Date High Low POTA* 4.2 mEq/L 09/21/2017 5.1 3.5 IBAN* 26.1 % 09/21/2017 44.9 34.1 No progress notes entered within the past 30 days ELBOW MIN 3 VIEWS Observed: 09/12/2017 Status: F Source: JOAN 1:49 PM [facility] REPOSITORY [facility] Imaging Services [address] [place] [address] Elbow min 3 Views MR#: [id number] Acct: [id number] Name: JOLENE AKHTAR Rep #: [id number] : 1935 F 82 From: Moncho Jimenez DO PCP: Heidi Mack NP Status: REG CLI Study: Elbow min 3 Views Date of Exam: 09/12/17 Exam# [id number] Ordering Dr: Heidi Mack STUDY: X-RAY - LEFT ELBOW REASON FOR EXAM: Female, 82 years old. Pain, fall TECHNIQUE: 3 view(s) of the elbow. COMPARISON: None. FINDINGS: Normal visualized humerus, radius and ulna. Normal radiocapitellar and ulnotrochlear articulations. The soft tissue structures are unremarkable. RAD/Elbow min 3 Views IMPRESSION: Normal x-ray examination of the elbow. Electronically Signed: Moncho Jimenez DO at 22:49 EST Tel [phone], Service support , CC: Heidi Mack NP Dental Treatment Coordinator: Signed INITAL EVALUATION (1) Observed: 09/11/2017 Status: F Source: JOAN - PT 8:17 AM [facility] REPOSITORY [facility] Physical Therapy Health[address] [place] [address] Fax REHABILITATION SERVICES INITIAL EVALUATION MR#: [id number] Acct: [id number] Name: JOLENE AKHTAR Rep #: [id number] : 1935 82 From: Fernie Coronado DPT Referring Dr.: Sameh Barbara, M.D. Status: REG RCR Insurance: MEDICARE PART [place] Patient's Visit Information JOLENE AKHTAR is a 82 year old F referred to Physical Therapy by MD SAMANTHA Aj with a diagnosis of Low back pain and leg pain. Date of Evaluation: 09/06/17 Physical Therapist: Fernie Coronado - Visit Plan Frequency: 2x /Week Duration: 4-6 Weeks Plan: Start with supine core strengthening, HS stretching, flexion based exercises (but small ROM). Use lossings traction with ice/heat to reduce symptoms. Progress to functional strengthening once symptoms have reduced. - Subjective Subjective: Pt. is here today for her initial evaluation with diagnosis of low back pain and leg pain. She reports having pain for many years with having 2 surgeries, pt. unsure of what lumbar surgeries that were performed. Pt. has had increased pain over the last 4 years. Increase pain: walking, bending, lifting. Decreases pain: pain meds (slightly), sitting, injections (slightly). Pt. has trialed ice and heat, minimal relief. Pt. reports pain radiating down BLE with walking, standing and prolonged sitting. Pt. reports having a constant 10/10 pain that elevates to 10/14 at times. She lives at home and increased assistance from daughter. Pt. denies N/T and no change in B/B. She did have PT in aquatic setting last year without positive changes. Pt. reports using FWW with all mobility, but does not leave the house unless to visit physician. Pt. uses temprapedic bed at home with ability to elevate her head. Pt. does get leg pain that extends to her feet at times, down posterior aspect of her legs. Pt. had recent injections with slight reduction in symptoms. She is hopeful to reduce symptoms in order to improve quality of life and increase overall mobility. - Pain Lumbar spine Pain Intensity (Out of 10): 10 Pain Intensity Range: 4, 10 Bilateral LEs Pain Intensity (Out of 10): 6 Pain Intensity Range: 3, 10 - Objective POSTURE: Pt. has overall generally flexed posture. Pt. stands with FWW without heavy use. Pt. has wide ETHEL with anteror tilted pelvis. She has rounded shoulders and FH. PALPATION: Pt. has increased pain with palpation throughout lumbar erector spinea, bilateral SI region, mild pain at bilateral piriformis and HS region. NEUROLOGICAL: Pt. has has normal sensation to light and sharp touch of bilateral LEs. Pt. has 2+ patellar and achilles DTR. Pt. has difficulty rising on heels and toes and requires BA to complete. Pt. does have increased postural sway with removal of BA. ROM: LUMBAR SPINE: flexion mod loss mild increase NW, ext max loss incease worse, SB mod loss bilat increase NW, rotation mod loss bilat increase NW. HIP- R- flexion 100deg increase NW, abd 45deg NE, ext 8deg increase NW, ER 48deg increase NW, IR 28deg increase NW. L hip- flexion 108deg increase NW, abd 43deg NE, ext 6deg increase NW, ER 49deg increase NW, IR 22deg increase NW. MMT: RLE- ankle- 5-/5 throughout; knee- 4/5 throughout; hip- flexion 4-/5, abd 4-/5, ext 4-/5. LLE- ankle 4+/5 throughout; knee- 5/5 throughout; hip- flexion 4-/5, abd 4-/5, ext 4-/5. Core strength- poor. GAIT: Pt. was able to ambulate with FWW 1x89ft. with increased posterior BLE pain, increased fatigue (pt. reports high levels of fatigue). Pt. has heavy use of AD, fwrd flexed posture (difficulty correcting with increased pain). Pt. has decreased step length bilaterally., minimal hip ext noted. - Special Tests L/S Slump test left side: Negative L/S Slump test right side: Negative L/S Left Straight Leg Raise: Negative L/S Right Straight Leg Raise: Negative Lumbar Standing: Flexion - Mechanical Response: No effect Lumbar Standing: Flexion - Symptoms During Testing: Increases Lumbar Standing: Flexion - Symptoms After Testing: No worse Lumbar Standing: Extension - Mechanical Response: No effect Lumbar Standing: Extension - Symptoms During Testing: Increases Lumbar Standing: Extension - Symptoms After Testing: Worse Lumbar Standing: Right Side Glides - Mechanical Response: No effect Lumbar Standing: Right Side Pharr - Symptoms During Testing: Increases Lumbar Standing: Right Side Pharr - Symptoms After Testing: No worse Lumbar Standing: Left Side Pharr - Mechanical Response: No effect Lumbar Standing: Left Side Pharr - Symptoms During Testing: Increases Lumbar Standing: Left Side Pharr - Symptoms After Testing: No worse Lumbar Lying: Flexion - Mechanical Response: No effect Lumbar Lying: Flexion - Symptoms During Testing: Decreases Lumbar Lying: Flexion - Symptoms After Testing: No better Comments:: Pt. has postive cross legged testing - Goals Goal 1:: P. to be I with HEP. Goal Time Frame: 4-6 Weeks Goal 2:: Pt. to have increased BLE and core strength by 1/2 grade of all effected musculature reducing stress applied to lumbar spine with all functional mobility. Goal Time Frame: 4-6 Weeks Goal 3:: Pt. to have decreased pain while sitting to 3-4/10 allowing for increased quality of life. Goal Time Frame: 4-6 Weeks Goal 4:: Pt. to walk 200ft.+ with FWW GLENN with 3-4/10 pain allowing for increased ability to ambulate in community. Goal Time Frame: 4-6 Weeks Goal 5:: Pt. to sleep throughout the night with 2-4/10 pain allowing for increased quality of life. Goal Time Frame: 4-6 Weeks - Rehabilitation Potential Physical Therapy Diagnosis: Pt. has signs and symptoms with lumbar spine pathology most likely spinal stenosis with radiationg down BLEs. Pt. has significant weakness in BLEs and core strength. Pt. is also deconditioned with all fucntional mobility, walking upto 89ft. this date. Pt. appears to have a slight directional preference for flexion, but would ultimately have benefit from PT to increase overall mobility and increase BLE and core strength. Rehabilitation Potential: Fair - Anticipated Interventions Patient/Client Instruction: Educate patient on: Condition, Plan of Care, Risk Factors, Benefits of Fitness Program For the Purpose of:: To improve health and function, To foster healthy habits, To improve decision making, To facilitate caregiver knowledge, To improve self management, To prevent re-injury, To improve ability to perform tasks related to life management, To improve tolerance to ADL's Therapeutic Exercise to Include: Strength training, Power training, Postural training, Flexibilty training, Gait and locomotor training, Passive ROM, Active ROM, Dynamic Lumbar Stabilization, Vicky Exercises For the Purpose of:: To decrease pain, To increase ROM, To improve nutrient delivery to tissue, To increase oxygenation perfusion, To improve muscle performance and motor function, To improve ability to perform ADL's, To increase tolerance to activity/condition/position, To improve performance and independence with ADL's, To decrease level of supervision to perform tasks, To improve ability of physical actions for home/community/work/leisure, To improve gait and locomotor functions, To improve health of tissue IF ES: Yes Ultrasound (thermal/non thermal): Yes Pelvic traction supine: Yes For the Purpose of:: To decrease pain, To increase ROM, To improve nutrient delivery to tissue, To increase oxygenation perfusion, To improve muscle performance and motor function, To improve ability to perform ADL's Thank you for the opportunity to evaluate your patient. For Medicare and Medicare HMO plans, please review the plan of care and approve it. It will need to be FAXED BACK to us at [phone] for Medicare purposes. Please let me know if there are questions or concerns regarding this plan of care. Physician Signature: Date: <Electronically signed by Fernie Coronado DPT> 09/11/17 0817 CC: Heidi Mack NP; Eris Jimenez M.D. CLS Signed For Medicare only, by signing this I certify the plan of care. Physicians Signature Date THORACIC SPINE 3 Observed: 09/06/2017 Status: F Source: JOAN VIEWS 11:34 AM [facility] REPOSITORY [facility] Imaging Services [address] [place] [address] Thoracic Spine 3 Views MR#: [id number] Acct: [id number] Name: JOLENE AKHTAR Iesha Rep #: [id number] : 1935 F 82 From: Sandoval Arteaga MD PCP: Heidi Mack NP Status: REG CLI Study: Thoracic Spine 3 Views Date of Exam: 09/06/17 Exam# [id number] Ordering Dr: Eris Jimenez MD STUDY: X-RAY - THORACIC SPINE REASON FOR EXAM: Female, 82 years old. Chronic back pain. TECHNIQUE: 4 view(s) of the thoracic spine were obtained. COMPARISON: None. FINDINGS: Normal kyphosis of the thoracic spine. There is no substantial scoliosis. There is demineralization of the thoracic spine with endplate spondylosis. There is multilevel disc space narrowing of the thoracic spine. Atherosclerotic calcification of the aortic arch. RAD/Thoracic Spine 3 Views IMPRESSION: Multilevel disc space narrowing and spondylosis. Electronically Signed: Sandoval Arteaga MD at 15:55 EST Tel [phone], Service support , CC: Heidi Mack NP; Eris Jimenez M.D. Dental Treatment Coordinator: Signed SACRUM-COCCYX MIN 2 VIEWS Observed: 09/06/2017 Status: F Source: ARMUCHEE 11:34 AM [facility] REPOSITORY [facility] Imaging Services [address] [place] [address] Sacrum-Coccyx min 2 Views MR#: [id number] Acct: [id number] Name: JOLENE AKHTAR Rep #: [id number] : 1935 F 82 From: Leonardo Welsh MD PCP: Heidi Mack NP Status: REG CLI Study: Sacrum-Coccyx min 2 Views Date of Exam: 09/06/17 Exam# [id number] Ordering Dr: Eris Jimenez MD STUDY: X-RAY - SACRUM/COCCYX REASON FOR EXAM: Female, 82 years old. Back pain. TECHNIQUE: 4 view(s) of the sacrum and coccyx were obtained. COMPARISON: None. FINDINGS: There is generalized osteopenia. There is mild arthrosis of both sacroiliac joints. Extensive laminectomy and fusion changes are noted in the lower lumbar spine. There are phleboliths in the pelvis. RAD/Sacrum-Coccyx min 2 Views IMPRESSION: Osteopenia with postsurgical changes in the lower lumbar spine. Mild arthrosis of the sacroiliac joints. No acute abnormality. Electronically Signed: Leonardo Welsh MD at 17:22 EST , Service support , CC: Heidi Mack NP; Eris Jimenez M.D. Dental Treatment Coordinator: Signed L/S SPINE MIN 4 Observed: 09/06/2017 Status: F Source: JOAN VIEWS 11:34 AM [facility] REPOSITORY [facility] Imaging Services [address] [place] [address] L/S Spine Min 4 Views MR#: [id number] Acct: [id number] Name: JOLENE AKHTAR Rep #: [id number] : 1935 F 82 From: Leonardo Welsh MD PCP: Heidi Mack NP Status: REG CLI Study: L/S Spine Min 4 Views Date of Exam: 09/06/17 Exam# [id number] Ordering Dr: Eris Jimenez MD STUDY: X-RAY - LUMBAR SPINE REASON FOR EXAM: Female, 82 years old. Back pain. TECHNIQUE: 4 view(s) of the lumbar spine were obtained. COMPARISON: April 29, 2014 FINDINGS: There is generalized osteopenia. There are stable laminectomies with posterior fusion from L4 to S1. There is marked intervertebral disc space narrowing of the lower thoracic and upper lumbar vertebral bodies. There is a 11 mm of anterolisthesis of L5 on S1 unchanged. There is vascular calcification. There are clips in the right lower quadrant of the abdomen. There are coils projected over the sacrum. RAD/L/S Spine Min 4 Views IMPRESSION: Stable appearance of the lumbar spine with postfusion changes, lumbar spondylosis and grade 1 anterolisthesis of L5 on S1. No new or acute abnormality. Electronically Signed: Leonardo Welsh MD at 17:25 EST , Service support , CC: Heidi Mack NP; Eris Jimenez M.D. Dental Treatment Coordinator: Signed ALLERGIES ALLERGIES DATE TYPE / CODE NAME / CODE REACTION SEVERITY SOURCE 07/21/2018 Drug No Known Unknown [place] Allergy/196688424(S Allergies/F [facility] NOMED CT) [id number]( Hospital XNORM) Repository 07/07/2006 Miscellaneous OTHER [facility] Allergy/785786022(S Other [place] NOMED CT) Repository NG/754581925(SNOMED OTHER [facility]) [facility] System Repository ENCOUNTERS ENCOUNTERS ADMIT/DISCHARGE ACCOUNT NUMBER ADMITTING ENCOUNTER LOCATION SOURCE CLASS 08/14/2018 [id number] Ambulatory Building:[facility] [place] Practices Repository 08/14/2018/08/14/19 [id number] Ambulatory BMSBuilding: [place] 19 BMS.[facility] Repository 08/06/2018 [id number] Ambulatory [facility] ding:LABSPEC Repository 07/27/2018 [id number] Ambulatory [facility] ding:RAD Repository 07/21/2018/07/22/20 [id number] Kalyan, Inpatient Joan Joan 18 Lawson F [facility] ding:PCURoom Repository : CQL224Nkh: 1 07/21/2018 [id number] Kalyan, Ambulatory BMSBuilding: Joan Lawson F BMS.[facility] Repository 07/21/2018 [id number] Maximos, Ambulatory BMSBuilding: [place] Lawson F BMS..[facility] Repository 07/21/2018 [id number] Kalyan, Ambulatory BMSBuilding: Joan Lawson F BMS.[facility] Repository 06/12/2018 [id number] [facility] Repository 05/23/2018 [id number] [facility] [place] [facility] ding:MEDOUTP Repository 05/22/2018 [id number] [facility] ding[facility]LAB.FUT Repository URE 03/15/2018/03/15/20 [id number] Ambulatory Joan Joan [address] [place] [address] Hospital ding:PT Repository 03/12/2018 [id number] [facility] [place] [facility]CT Repository 03/09/2018/03/09/20 [id number] Ambulatory Joan [place] [address] [place] [address] Hospital ding:SDC Repository 02/06/2018 [id number] [facility] Repository 01/30/2018 [id number] [facility] [place] [facility] ding:PAVLAB Repository 01/29/2018 [id number] [facility] [place] [facility] ding[facility]MEDOUTP Repository 01/24/2018 [id number] [facility] ding[facility]HPRAD Repository 12/08/2017 [id number] [facility] ding[facility]MTLAB Repository 11/15/2017 [id number] [facility] [place] [facility] ding:MTLAB Repository 10/24/2017 [id number] [facility] [place] [facility] ding:RAD.FUT Repository URE 10/05/2017/10/06/19 [id number] [place] Hospital ding:PT Repository 09/21/2017 [id number] [facility] [place] [facility] ding[facility]CT Repository 09/20/2017/09/22/19 [id number] DAISY, Inpatient [place] 18 MARY Encounter Clinic Other [place] Repository 09/20/2017/09/22/19 [id number] Unknown Inpatient PRRON [facility] 18 Encounter [facility] MEDICAL Repository CENTERBuildi nRoom: 8101Bed: 09/20/2017/09/20/19 [id number] Emergency [address] ding:ED Repository 09/20/2017 [id number] Ambulatory [facility] ding:LABSPEC Repository 09/13/2017 [id number] [facility] ding:NM Repository 09/12/2017 [id number] [facility] ding:HPRAD Repository 09/06/2017 [id number] [facility] ding:HPRAD Repository FUNCTIONAL STATUS FUNCTIONAL STATUS No Functional Status Records FoundEQUIPMENT EQUIPMENT No Equipment Records FoundPAYERS PAYERS ENCOUNTER GUARANTOR PAYER SUBSCRIBER SOURCE 08/14/2018 Jolene Julian Primary Jolene Julian [place] Practices NorrisDOB: Insurance:MedicarePolic NorrisDOB: Repository [id number] y Number: [id number] Mandy [id number] 0 [place], [place] Date:3634-69-47Tkjh [place], [place] [address]Fly: (976) 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 [address] [address]Gxw: [id number], [place] [phone] (HP) (HP)Tel: [phone]: [phone] (WP) 08/14/2018 Secondary Jolene Julian OHIP Practices [facility] BerrienB: Repository /BSPolicy Number: [id number] 0 Mandy Date:0883-67-78[place], [place] Name:[address] [address]Nyz: [phone], [place] [phone] (HP) [id number]: 08/14/2018 [id number] Insurance:MEDICARE PART [facility]: [facility] MANDY [place] BPolicy Number: [id number] [place], [place] [id number] Repository [address]Ehe: (643) Date:2018-08-14 [phone] (HP) 08/14/2018 Secondary MARCELENE J [place] Insurance:ANTHEMPolicy NORRISDOB: Community Number: [id number] [id number] Repository Date:7217-51-14EJ [address], [place] [address]TO: 08/14/2018 Tertiary Insurance:SELF NOT GIVENUNK Joan PAY INSURANCEPolicy Community Number: Effective Hospital Date:2018-08-14 Repository 08/06/2018 MARCJONATHONE J Primary MARCELENE J Joan [id number] Insurance:MEDICARE PART NORRISDOB: [facility] Renetta BPolicy Number: [id number], [place] [id number] Repository [address]Iop: (313) Date:2018-08-06 [phone] () 08/06/2018 Secondary DIOMEDESELENE J Joan Insurance:ANTHEMPolicy NORRISDOB: Community Number: [id number] Hospital [id number] Repository Date:0530-13-51CD [address] [place] [address]XV: 08/06/2018 Tertiary Insurance:SELF NOT GIVENUNK [place] PAY INSURANCEPolicy Community Number: Effective Hospital Date:2018-08-06 Repository 07/27/2018 CORNELIOE J Primary MARCELENE J [place] [id number] Insurance:MEDICARE PART NORRISDOB: [facility] Renetta BPolicy Number: [id number], [place] [id number] Repository [address]Oee: 330) Date:2018-07-27 [phone] () 07/27/2018 Secondary MARCELENE J Joan Insurance:ANTHEMPolicy NORRISDOB: Community Number: [id number] [id number] Repository Date:4371-98-23CR [address]RI[address] [place] [address]WZ: 07/27/2018 Tertiary Insurance:SELF NOT GIVENUNK [place] PAY INSURANCEPolicy Community Number: Effective Hospital Date:2018-07-27 Repository 07/21/2018 CORNELIOE J Primary MARCELENE J Joan [id number] Insurance:MEDICARE PART NORRISDOB: [facility] MANDY A BPolicy Number: [id number], [place] [id number] Repository [address]Yzl: 330) Date:2018-07-21 [phone] () 07/21/2018 Secondary MARCELENE J [place] Insurance:ANTHEMPolicy NORRISDOB: Community Number: [id number] Hospital [id number] Repository Date:5772-57-78WG [address]QJREM[address], [place] [address]FE: 07/21/2018 Tertiary Insurance:SELF NOT GIVENUNK Joan PAY INSURANCEPolicy Community Number: Effective Hospital Date:2018-07-21 Repository 07/21/2018 MARCELENE J Primary MARCELENE J Joan [id number] Insurance:MEDICARE PART NORRISDOB: [facility] MANDY A BPolicy Number: [id number], [place] [id number] Repository [address]Ixy: (330) Date:2018-07-21 [phone] () 07/21/2018 Secondary MARCELENE J Joan Insurance:ANTHEMPolicy NORRISDOB: Community Number: [id number] Hospital [id number] Repository Date:3985-88-54OS [address]KF[place], [place] [address]YW: 07/21/2018 Tertiary Insurance:SELF NOT GIVENUNK Joan PAY INSURANCEPolicy Community Number: Effective Hospital Date:2018-07-21 Repository 07/21/2018 MARCELENE J Primary MARCELENE J Joan [id number] Insurance:MEDICARE PART NORRISDOB: [facility] MANDY A BPolicy Number: [id number], [place] [id number] Repository [address]Yky: (330) Date:2018-07-21 [phone] () 07/21/2018 Secondary MARCELENE J Joan Insurance:ANTHEMPolicy NORRISDOB: Community Number: [id number] Hospital [id number] Repository Date:5343-79-22EX [address]SYK[address], [place] [address]OS: 07/21/2018 Tertiary Insurance:SELF NOT GIVENUNK Joan PAY INSURANCEPolicy Community Number: Effective Hospital Date:2018-07-21 Repository 07/21/2018 DIOMEDESELENE J Primary MARCELENE J Joan [id number] Insurance:MEDICARE PART NORRISDOB: [facility] MANDY A BPolicy Number: [id number], [place] [id number] Repository [address]Gvh: 330) Date:2018-07-21 [phone] () 07/21/2018 Secondary MARCELENE J [place] Insurance:ANTHEMPolicy NORRISDOB: Community Number: [id number] Hospital [id number] Repository Date:1724-99-70YX [id number] [place] [address]KY: 07/21/2018 Tertiary Insurance:SELF NOT GIVENUNK Joan PAY INSURANCEPolicy Community Number: Effective Hospital Date:2018-07-21 Repository 06/12/2018 DIOMEDESELENE J Primary MARCELENE J Joan [id number] Insurance:MEDICARE PART NORRISDOB: [facility] MANDY A BPolicy Number: [id number], [place] [id number] Repository [address]Mok: 330) Date:2018-06-12 [phone] () 06/12/2018 Secondary CORNELIOE J Joan Insurance:ANTHEMPolicy NORRISDOB: Community Number: [id number] Hospital [id number] Repository Date:4730-71-76QX [address]EWXHNA[address] [place] [address]XI: 06/12/2018 Tertiary Insurance:SELF NOT GIVENUNK Joan PAY INSURANCEPolicy Community Number: Effective Hospital Date:2018-06-12 Repository 05/23/2018 MARCELENE J Primary MARCELENE J [place] [id number] Insurance:MEDICARE PART NORRISDOB: [facility] MANDY A BPolicy Number: [id number], [place] [id number] Repository [address]Iil: 330) Date:2018-05-22 [phone] () 05/23/2018 Secondary MARCJONATHONE J Joan Insurance:ANTHEMPolicy NORRISDOB: Community Number: [id number] [id number] Repository Date:0086-63-35IF [id number] [place] [address] 71232EV: 05/23/2018 Tertiary Insurance:SELF NOT GIVENUNK [place] PAY INSURANCEPolicy Community Number: Effective Hospital Date:2018-05-22 Repository 05/22/2018 MARCELENE J Primary MARCELENE J Joan [id number] Insurance:MEDICARE PART NORRISDOB: [facility] Renetta BPolicy Number: [id number], [place] [id number] Repository 35586Pow: 330) Date:2018-05-22 [phone] () 05/22/2018 Secondary MARCELENE J Joan Insurance:ANTHEMPolicy NORRISDOB: Community Number: [id number] [id number] Repository Date:7473-52-14ZP [id number] [place] [address] 36489ZU: 05/22/2018 Tertiary Insurance:SELF NOT GIVENUNK [place] PAY INSURANCEPolicy Community Number: Effective Hospital Date:2018-05-22 Repository 03/15/2018 CORNELIOE J Primary MARCELENE J [place] [id number] Insurance:MEDICARE PART NORRISDOB: [facility] Renetta BPolicy Number: [id number], [place] [id number] Repository 94042Hpq: 330) Date:1995-03-07 [phone] () 03/15/2018 Secondary MARCELENE J Joan Insurance:ANTHEMPolicy NORRISDOB: Community Number: [id number] [id number] Repository Date:2948-22-13OJ [id number] [place] [address] 62920XI: 03/15/2018 Tertiary Insurance:SELF NOT GIVENUNK [place] PAY INSURANCEPolicy Community Number: Effective Hospital Date:2018-02-19 Repository 03/12/2018 MARCELENE J Primary MARCELENE J Joan [id number] Insurance:MEDICARE PART NORRISDOB: [facility] MANDY A BPolicy Number: [id number], [place] [id number] Repository 765[address]Tri: (330) Date:2018-02-21 [phone] () 03/12/2018 Secondary MARCELENE J Joan Insurance:ANTHEMPolicy NORRISDOB: Community Number: [id number] [facility] [id number] Repository Date:3790-37-15BH [id number] [place] [address] 90371FE: 03/12/2018 Tertiary Insurance:SELF NOT GIVENUNK [place] PAY INSURANCEPolicy Community Number: Effective Hospital Date:2018-02-21 Repository 03/09/2018 MARCELENE J Primary MARCELENE J [place] [id number] Insurance:MEDICARE PART NORRISDOB: [facility] MANDY A BPolicy Number: [id number], [place] [id number] Repository 326[address]Cnt: (330) Date:2018-03-02 [phone] () 03/09/2018 Secondary MARCELENE J Joan Insurance:ANTHEMPolicy NORRISDOB: Community Number: [id number] [facility] [id number] Repository Date:4314-86-95YB [address]YGSFUAT [place] [address]MZ: 03/09/2018 Tertiary Insurance:SELF NOT GIVENUNK [place] PAY INSURANCEPolicy Community Number: Effective Hospital Date:2018-03-02 Repository 02/06/2018 MARCELENE J Primary MARCELENE J [place] [id number] Insurance:MEDICARE PART NORRISDOB: [facility] A BPolicy Number: [id number], [place] [id number] Repository 21[address]Ssd: (330) Date:2018-01-29 [phone] () 02/06/2018 Secondary MARCELENE J [place] Insurance:ANTHEMPolicy NORRISDOB: Community Number: [id number] [facility] [id number] Repository Date:9054-39-94HH [address]MMCSDUN, [place] [address]ZG: 02/06/2018 Tertiary Insurance:SELF NOT GIVENUNK [place] PAY INSURANCEPolicy Community Number: Effective Hospital Date:2018-01-29 Repository 01/30/2018 CORNELIOE Iesha Primary DIOMEDESELENE J Joan [id number] Insurance:MEDICARE PART NORRISDOB: Community MANDY A BPolicy Number: [id number], [place] [id number] Repository 532[address]Xij: 330) Date:2018-01-30 [phone] () 01/30/2018 Secondary CORNELIOE J [place] Insurance:ANTHEMPolicy NORRISDOB: Community Number: [id number] [facility] [id number] Repository Date:0449-27-16XX [address] [place] [address] 15535VD: 01/30/2018 Tertiary Insurance:SELF NOT GIVENUNK [place] PAY INSURANCEPolicy Community Number: Effective Hospital Date:2018-01-30 Repository 01/29/2018 DIOMEDESJONATHONE J Primary CORNELIOE J Joan [id number] Insurance:MEDICARE PART NORRISDOB: [facility] MANDY A BPolicy Number: [id number], [place] [id number] Repository [address]Mnm: 330) Date:2018-01-25 [phone] () 01/29/2018 Secondary CORNELIOE J [place] Insurance:ANTHEMPolicy NORRISDOB: Community Number: [id number] [facility] [id number] Repository Date:7146-86-64VP [address] [place] [address] 15822BC: 01/29/2018 Tertiary Insurance:SELF NOT GIVENUNK [place] PAY INSURANCEPolicy Community Number: Effective Hospital Date:2018-01-25 Repository 01/24/2018 Cornelioe J Primary Diomedeselene J Joan [id number] Insurance:MEDICARE PART NorrisDOB: [facility] Mandy A BPolicy Number: [id number], [place] [id number] Repository 98617Bap: 330) Date:2018-01-24 [phone] () 01/24/2018 Secondary Marcjonathone J [place] Insurance:ANTHEMPolicy NorrisDOB: Community Number: [id number] [facility] [id number] Repository Date:3963-64-24IK [id number] [place] [address] 42144VS: 01/24/2018 Tertiary Insurance:SELF NOT GIVENUNK [place] PAY INSURANCEPolicy Community Number: Effective Hospital Date:2018-01-24 Repository 12/08/2017 Cornelioe J Primary Marcelene J Joan [id number] Insurance:MEDICARE PART NorrisDOB: [facility] Renetta BPolicy Number: [id number], [place] [id number] Repository 26[address]Xin: 330) Date:2017-12-08 [phone] () 12/08/2017 Secondary Marcelene J [place] Insurance:ANTHEMPolicy NorrisDOB: Community Number: [id number] Hospital [id number] Repository Date:6248-82-52CY [id number] [place] [address] 03572XG: 12/08/2017 Tertiary Insurance:SELF NOT GIVENUNK [place] PAY INSURANCEPolicy Community Number: Effective Hospital Date:2017-12-08 Repository 11/15/2017 Diomedesjonathone J Primary Marcelene J Joan [id number] Insurance:MEDICARE PART NorrisDOB: [facility] Renetta BPolicy Number: [id number], [place] [id number] Repository 211[address]Gnd: 330) Date:2017-11-15 [phone] () 11/15/2017 Secondary Marcelene J [place] Insurance:ANTHEMPolicy NorrisDOB: Community Number: [id number] Hospital [id number] Repository Date:1340-56-00QX [id number] [place] [address] 28109YL: 11/15/2017 Tertiary Insurance:SELF NOT GIVENUNK [place] PAY INSURANCEPolicy Community Number: Effective Hospital Date:2017-11-15 Repository 10/24/2017 Marcelene J Primary Marcelene J Joan [id number] Insurance:MEDICARE PART NorrisDOB: [facility] Mandy A BPolicy Number: [id number], [place] [id number] Repository 56[address]Mqm: (330) Date:2017-10-24 [phone] () 10/24/2017 Secondary Marcelene J [place] Insurance:ANTHEMPolicy NorrisDOB: Community Number: [id number] [facility] [id number] Repository Date:7963-99-49HW [id number] [place] [address] 53988ZL: 10/24/2017 Tertiary Insurance:SELF NOT GIVENUNK [place] PAY INSURANCEPolicy Community Number: Effective Hospital Date:2017-10-24 Repository 10/05/2017 Marcelene J Primary Marcelene J Joan [id number] Insurance:MEDICARE PART NorrisDOB: [facility] Mandy A BPolicy Number: [id number], [place] [id number] Repository 23151Daf: (330) Date:1995-03-07 [phone] () 10/05/2017 Secondary Marcelene J Joan Insurance:ANTHEMPolicy NorrisDOB: Community Number: [id number] Hospital [id number] Repository Date:1034-93-32UE [address] [place] [address] 22914SF: 10/05/2017 Tertiary Insurance:SELF NOT GIVENUNK [place] PAY INSURANCEPolicy Community Number: Effective Hospital Date:2017-09-04 Repository 09/21/2017 Marcelene J Primary Marcelene J Joan [id number] Insurance:MEDICARE PART NorrisDOB: [facility] Renetta BPolicy Number: [id number], [place] [id number] Repository 40846Lqf: (330) Date:2017-09-13 [phone] () 09/21/2017 Secondary Marcelene J [place] Insurance:ANTHEMPolicy NorrisDOB: Community Number: [id number] [facility] [id number] Repository Date:7385-32-45VL [id number] [place] [address] 46846JM: 09/21/2017 Tertiary Insurance:SELF NOT GIVENUNK [place] PAY INSURANCEPolicy Community Number: Effective Hospital Date:2017-09-13 Repository 09/20/2017 CORNELIOE J Primary MARCELENE J [facility] NORRISDOB: Insurance:MEDICARE A NORRISDOB: [facility] [id number] AND BPolicy Number: [id number] Repository OJIBWA [id number] [place] Date: [address]Dfk: () 09/20/2017 Secondary MARCELENE J [facility] Insurance:BLUE CARD NORRISDOB: [facility] [id number] Repository Number: [id number] Date: 09/20/2017 Cornelioe J Primary Marcelene J [place] [id number] Insurance:MEDICARE PART NorrisDOB: [facility] Mandy [place] BPolicy Number: [id number], [place] [id number] Repository 989[address]Cht: 330) Date:2017-09-20 [phone] (HP) 09/20/2017 Secondary Cornelioe J [place] Insurance:ANTHEMPolicy NorrisDOB: Community Number: [id number] Hospital [id number] Repository Date:4363-67-99PW [address]CKBGWGM, [place] [address]KR: 09/20/2017 Tertiary Insurance:SELF NOT GIVENUNK [place] PAY INSURANCEPolicy Community Number: Effective Hospital Date:2017-09-20 Repository 09/20/2017 Marcelene J Primary Marcelene J [place] [id number] Insurance:MEDICARE PART NorrisDOB: [facility] Mandy Jackson BPolicy Number: [id number], [place] [id number] Repository 54[address]Qyr: 330) Date:2017-09-20 [phone] (HP) 09/20/2017 Secondary Marcelene J [place] Insurance:ANTHEMPolicy NorrisDOB: Community Number: [id number] Hospital [id number] Repository Date:9102-75-12CV [address]UNNQYMW, [place] [address]CP: 09/20/2017 Tertiary Insurance:SELF NOT GIVENUNK [place] PAY INSURANCEPolicy Community Number: Effective Hospital Date:2017-09-20 Repository 09/13/2017 Marcelene J Primary Marcelene J [place] [id number] Insurance:MEDICARE PART NorrisDOB: [facility] Mandy Jackson BPolicy Number: [id number], [place] [id number] Repository [address]Ixl: 330) Date:2017-09-11 [phone] () 09/13/2017 Secondary Marcelene J [place] Insurance:ANTHEMPolicy NorrisDOB: Community Number: [id number] Hospital [id number] Repository Date:0682-06-16IE [address]ONFBFYL, [place] [address]XO: 09/13/2017 Tertiary Insurance:SELF NOT GIVENUNK [place] PAY INSURANCEPolicy Community Number: Effective Hospital Date:2017-09-11 Repository 09/12/2017 Marcjonathone J Primary Marcelene J Joan [id number] Insurance:MEDICARE PART NorrisDOB: [facility] Mandy Jackson BPolicy Number: [id number], [place] [id number] Repository 93[address]Xeg: (330) Date:2017-09-12 [phone] () 09/12/2017 Secondary Diomedeselene J [place] Insurance:ANTHEMPolicy NorrisDOB: Community Number: [id number] Hospital [id number] Repository Date:3628-96-25NM [address]FUHXQHC, [place] [address]NM: 09/12/2017 Tertiary Insurance:SELF NOT GIVENUNK [place] PAY INSURANCEPolicy Community Number: Effective Hospital Date:2017-09-12 Repository 09/06/2017 Marcelene J Primary Marcelene J Joan [id number] Insurance:MEDICARE PART NorrisDOB: [facility] Renetta BPolicy Number: [id number], [place] [id number] Repository [address]Ywv: (369) Date:2017-09-06 [phone] (HP) 09/06/2017 Secondary Jolene Vaughanoster Insurance:ANTHEMPolicy NorrisDOB: Community Number: [id number] Hospital [id number] Repository Date:1383-93-30GN [address]PRWVBSW, [place] [address]DP: 09/06/2017 Tertiary Insurance:SELF NOT GIVENUNK [place] PAY INSURANCEPolicy Community Number: Effective Hospital Date:2017-09-06 Repository SOCIAL HISTORY SOCIAL HISTORY No Social History Records FoundFAMILY HISTORY FAMILY HISTORY No Family History Records FoundADVANCE DIRECTIVES ADVANCE DIRECTIVES No Advanced Directives Records FoundINFORMATION SOURCE INFORMATION SOURCE DATE CREATED AUTHOR AUTHOR'S ORGANIZATION 08/29/2018 [facility]
== END 2018-07-22 16:17 | disposition home or self-care (01) | DRG 812 ==
LOC: ED 14:29 → PCU 16:33
PROVIDERS: Admitting Provider Family Medicine; Emergency Provider Emergency Medicine; Family Provider Internal Medicine; PCP Internal Medicine; Referring Provider Family Medicine; Visit Provider Hospitalist
DX: D50.9 Iron deficiency anemia, unspecified (principal); K44.9 Diaphragmatic hernia without obstruction or gangrene; J45.909 Unspecified asthma, uncomplicated; M06.9 Rheumatoid arthritis, unspecified; M47.816 Spondylosis without myelopathy or radiculopathy, lumbar region; G43.909 Migraine, unspecified, not intractable, without status migrainosus; Z79.899 Other long term (current) drug therapy; Z79.52 Long term (current) use of systemic steroids
CPT/HCPCS: 36415; 80048; 81001; 82274; 82728; 83540; 83550; 84484; 85014; 85018; 85025; 85610; 86850; 86900; 86920; 92610; 93005; 97162; 97166; 97802; 99283; J7030; P9016; A4216; J1940

== ENCOUNTER → 2018-07-27 16:30 | Outpatient (CLI) | payer MEDICARE, BC, SELFPAY ==
[2018-07-21 16:51] VITALS: BMI 39.6
--- NOTE | 2018-07-27 16:37 | RAD_ITS ---
STUDY: X-RAY - RIGHT KNEE REASON FOR EXAM: Female, 83 years old. Pain radiating into both legs TECHNIQUE: 4 view(s) of the knee. COMPARISON: None. FINDINGS: Normal visualized distal femur. Normal visualized proximal tibia and fibula. Normal proximal tibiofibular articulation. Normal medial femorotibial compartment. Normal lateral femorotibial compartment. There is mild degenerative arthrosis of the patellofemoral articulation. Lateral compartment chondrocalcinosis. No significant joint effusion The soft tissue structures are unremarkable. RAD/Knee 4 or More Views IMPRESSION: No acute findings. Remainder is above Electronically Signed: Stef Mendez DO at 12:09 EST Tel , Service support ,
--- NOTE | 2018-07-27 16:38 | RAD_ITS ---
STUDY: X-RAY - PELVIS AND BILATERAL HIP REASON FOR EXAM: Female, 83 years old. Pain radiating down bilateral legs, worst in the knees.. History of lumbar surgery in 2010. TECHNIQUE: 5 views of the pelvis and hip. COMPARISON: X-ray pelvis 08/15/2013. FINDINGS: There is a non-specific bowel gas pattern. Normal visualized soft tissue structures. Normal bilateral iliac wings, sacroiliac joints and visualized sacrum. Normal bilateral superior and inferior pubic rami. Normal pubic symphysis. Normal bilateral ischial tuberosities. There are osteoarthritic changes of the right femoral head with marginal osteophyte formation. There is osteoarthritic spur formation of the acetabular rim. There is moderate articular joint space narrowing of the right hip. There are osteoarthritic changes of the left femoral head with marginal osteophyte formation. There is osteoarthritic spur formation of the acetabular rim. There is mild articular joint space narrowing of the left hip. There are postsurgical changes in the visualized lower lumbar spine. RAD/Hips B/L min 2 views w/ Pelvis IMPRESSION: Degenerative arthrosis of both hips, right greater than left. No demonstrated fracture, dislocation, or destructive osseous lesion. Electronically Signed: Vimal Wayne MD at 8:06 EST , Service support ,
--- NOTE | 2018-07-27 16:40 | RAD_ITS ---
STUDY: X-RAY - LEFT KNEE REASON FOR EXAM: Female, 83 years old. Left knee pain TECHNIQUE: 4 view(s) of the knee. COMPARISON: None. FINDINGS: Normal visualized distal femur. Normal visualized proximal tibia and fibula. Normal proximal tibiofibular articulation. There is mild degenerative arthrosis of the medial femorotibial compartment. There is mild degenerative arthrosis of the lateral femorotibial compartment. There is mild degenerative arthrosis of the patellofemoral articulation. There is no demonstrated joint effusion. Lateral compartment chondrocalcinosis The soft tissue structures are unremarkable. RAD/Knee 4 or More Views IMPRESSION: Degenerative arthrosis. Electronically Signed: Stef Mendez DO at 12:09 EST Tel , Service support ,
== END ==
PROVIDERS: Family Provider Internal Medicine; PCP Internal Medicine; Referring Provider Anesthesiology; Visit Provider Anesthesiology
DX: M25.562 Pain in left knee (principal); M25.561 Pain in right knee; M25.559 Pain in unspecified hip; R26.9 Unspecified abnormalities of gait and mobility
CPT/HCPCS: 73521; 73564

== ENCOUNTER → 2018-08-06 15:56 | Outpatient (CLI) | payer MEDICARE, BC, SELFPAY ==
[2018-07-21 16:51] VITALS: BMI 39.6
== END ==
PROVIDERS: Family Provider Internal Medicine; PCP Internal Medicine; Referring Provider Internal Medicine; Visit Provider Internal Medicine
DX: J02.9 Acute pharyngitis, unspecified (principal)
CPT/HCPCS: 87807

== ENCOUNTER 2018-09-07 12:44 | Day surgery (SDC) | payer MEDICARE, BC, SELFPAY ==
[2018-07-21 16:51] VITALS: BMI 39.6
[2018-09-07 13:05] VITALS: BP 156/70; PULSE 72; RESP 16; TEMP 36.3; O2SAT 100; BMI 39.6
--- NOTE | 2018-09-07 13:45 | RAD_ITS ---
STUDY: X-RAY - LUMBAR SPINE REASON FOR EXAM: Female, 83 years old. Fluoroscopic guidance for lumbar facet injections. TECHNIQUE: Fluoroscopic assistance was provided to Dr. Jimenez. 2 frontal and lateral fluoroscopic spot view(s) of the lumbar spine were obtained. FLUOROSCOPY TIME: 28.2 seconds. COMPARISON: 4 films of lumbar spine September 06, 2017. FINDINGS: Metal hardware of prior bilateral posterior fusion L3-L5 again noted. [place] are seen directed to the facet articulations of the mid to lower lumbar spine and possibly S1-2. RAD/L/S Spine Min 4 Views IMPRESSION: Fluoroscopic guidance for multilevel lumbosacral facet injections. Correlation with procedure notes advised. Electronically Signed: Willy Mitchell MD at 17:02 EST , Service support ,
--- NOTE | 2018-09-07 14:09 | PCM.DC ---
- Discharge Diagnoses Current Active Problems: Lumbar facets pain You will use the following diet at home:: No restrictions Your food should be the consistency of: Regular Discharge Activity: Return to Normal Activity Return to work on:: 09/10/18 May shower in (days): 1 May resume sexual activity in: No Restrictions Weight Bearing Status: Weight bearing as tolerated Call your doctor if your incision/area has: Continuous Slow Oozing, Sudden Increased Bleeding, Increased Pain/ Swelling, Increased Redness, Foul Smelling Discharge, Swelling at the incision site Call your doctor if you observe: Uncontrolled pain Suture Line Care: Avoid Pulling/Pushing, Avoid Pinching/Bending Cleanse incision/area with: Soap & Water Instructions: Understanding Osteoarthritis, Osteoarthritis: Coping with Pain, Osteoarthritis: Protecting Your Joints Allergies/Adverse Reactions: Allergies No Known Allergies Allergy (Verified 07/21/18 12:36) Medications to take at Discharge Butalb/Acetaminophen/Caffeine [Fioricet 50-300-40 mg Capsule] 1 each PO Q4H PRN PRN 02/16/14 Diphenoxylate HCl/Atropine [Lomotil 2.5-0.025 mg Tablet] 2.5 mg PO TID PRN PRN 02/16/14 Duloxetine Hcl [Cymbalta] 60 mg PO DAILY 02/16/14 Atenolol [Tenormin (beta tyler)] 25 mg PO BID 06/09/15 Hydroxychloroquine [Plaquenil] 200 mg PO DAILY 06/09/15 Ropinirole HCl [Requip] 0.5 mg PO QHS 06/09/15 Sumatriptan Succinate [Imitrex] 100 mg PO .X1 PRN MDD MIGRAINE 06/09/15 Gabapentin [Neurontin] 200 mg PO DAILY 09/20/16 Gabapentin [Neurontin] 300 mg PO QHS 09/20/16 Iron Carbonyl [Feosol] 65 mg PO BID 04/19/17 Lidocaine/Transparent Dressing [Lidocaine 4% Kit] 1 each TP BID PRN 04/19/17 Prednisone 10 mg PO PRN PRN 04/19/17 Multivitamins,Therapeutic [Multivitamin] 1 tablet PO DAILY 01/29/18 Hydrocodone/Acetaminophen [[place] 5-325 Tablet] 1 each PO BID PRN PRN 03/09/18 Cholecalciferol (VIT D3) [Vitamin D3] 1,000 unit PO DAILY 07/21/18 Folic Acid 0.4 mg PO DAILY@0800 07/21/18 Furosemide [Lasix] 20 mg PO DAILY PRN PRN 07/21/18 Pantoprazole Sodium [Protonix] 40 mg PO DAILY 07/21/18 buPROPion XL [Wellbutrin Xl] 150 mg PO DAILY 07/21/18 Primary Care Physician: Candice Amado DO [Primary Care Provider] - Test Results: Test results from this visit will be discussed in further detail at your follow-up appointment, if applicable. Please Follow Up With: Eris Jimenez MD
--- NOTE | 2018-09-07 14:10 | PCM.OPRPT ---
Problem List (1) Spondylosis of lumbar region without myelopathy or radiculopathy Status: Chronic Report of Operation Date of Procedure: 09/07/18 Pre-Operative Diagnosis: Lumbar facet spondylosis Post-Operative Diagnosis: Same Surgery/Procedure Performed:: Left-sided lumbar facet medial nerve branch at the level of the left side L3 4 L45 and L 5 S1 fluoroscopy guidance Description of Surgical Findings:: Under sterile conditions. Patient placed in the prone position, pressure points were padded, patient was ready from the nursing and the anesthesia team. After identification of the side and the target area for the block of the left lumbar facet region under guided fluoroscopy, the entry site was marked with marking pen. I used Betadine for sterilization of the skin, sterile draping were applied. Using 25-gauge needle to infiltrate the skin with local anesthesia using preservative-free lidocaine 0.5% injected 2.5 mL at each site of entry. Using oblique fluoroscopy, accessed the right medial nerve branch supplying the left lumbar facets L3-4, L4-5, L5-S1 using 22-gauge spinal needle. After confirmation of appropriate needle placement to the targeted area with AP and lateral fluoroscopy, injected 2.5 mL mixture of preservative-free Marcaine 0.5% and Kenalog [20 ] mg at each site. [place] was removed, pressure dressing were applied. Patient tolerated the procedure well and was taken to the recovery. Type of Anesthesia:: Local MAC - Complications none
[2018-09-07] MEDS: Bupivacaine 0.25% 30 ML Vial (14:25)
[2018-09-07] MEDS: Triamcinolone Acetonide 40 MG/ML Vial (14:25)
[2018-09-07 14:40] VITALS: BP 144/64; BP 156/70; PULSE 74; RESP 16; TEMP 36.3; O2SAT 100
[2018-09-07 14:45] VITALS: BP 146/68; BP 156/70; PULSE 74; RESP 16; O2SAT 98
[2018-09-07 14:50] VITALS: BP 154/69; BP 156/70; PULSE 71; RESP 16; O2SAT 100
[2018-09-07 14:55] VITALS: BP 147/76; BP 156/70; PULSE 68; RESP 16; TEMP 36.4; O2SAT 98
[2018-09-07 15:10] VITALS: BP 156/70
== END 2018-09-07 15:28 | disposition home or self-care (01) ==
LOC: SDC 12:45 → AC 12:47
PROVIDERS: Family Provider Internal Medicine; PCP Internal Medicine; Referring Provider Anesthesiology; Visit Provider Anesthesiology
PROC: 3E0T3BZ Introduction of Anesthetic Agent into Peripheral Nerves and Plexi, Percutaneous Approach (ICD-10-PCS; CPT 64493; principal; 2018-09-07 13:40)
DX: M47.816 Spondylosis without myelopathy or radiculopathy, lumbar region (principal); M47.817 Spondylosis without myelopathy or radiculopathy, lumbosacral region; M48.062 Spinal stenosis, lumbar region with neurogenic claudication; M96.1 Postlaminectomy syndrome, not elsewhere classified; M46.46 Discitis, unspecified, lumbar region; M46.1 Sacroiliitis, not elsewhere classified; I10 Essential (primary) hypertension; M19.90 Unspecified osteoarthritis, unspecified site; D64.9 Anemia, unspecified; G43.909 Migraine, unspecified, not intractable, without status migrainosus; K21.9 Gastro-esophageal reflux disease without esophagitis; F41.9 Anxiety disorder, unspecified; E66.9 Obesity, unspecified; Z68.39 Body mass index [BMI] 39.0-39.9, adult; Z79.01 Long term (current) use of anticoagulants; Z79.52 Long term (current) use of systemic steroids; Z79.899 Other long term (current) drug therapy; Z78.0 Asymptomatic menopausal state; Z86.718 Personal history of other venous thrombosis and embolism; Z85.828 Personal history of other malignant neoplasm of skin
CPT/HCPCS: 01992; 64493; 64494; 64495; 64483; 72110; J7120

== ENCOUNTER 2018-09-21 12:31 | Day surgery (SDC) | payer MEDICARE, BC, SELFPAY ==
[2018-07-21 16:51] VITALS: BMI 39.6
[2018-09-21 12:50] VITALS: BP 167/67; PULSE 70; RESP 18; TEMP 36.8; O2SAT 90; BMI 39.6
--- NOTE | 2018-09-21 14:22 | RAD_ITS ---
STUDY: X-RAY - LUMBAR SPINE REASON FOR EXAM: Female, 83 years old. Lumbar facet block at L3-S1 TECHNIQUE: 5 view(s) of the lumbar spine were obtained. COMPARISON: Prior study of September 07, 2018 FINDINGS: There is status post posterior spinal fusion changes with rods and interpeduncular screws from L3 to L5. [place] are noted posterior to the left facets from L3 to S1. RAD/Lumbar Spine 2 or 3 Views IMPRESSION: Fluoroscopic guidance for needle localization. Electronically Signed: Lewis Meade MD at 16:10 EST , Service support ,
[2018-09-21] MEDS: Triamcinolone Acetonide 40 MG/ML Vial (14:31)
[2018-09-21] MEDS: Bupivacaine 0.25% 30 ML Vial (14:31)
--- NOTE | 2018-09-21 14:41 | PCM.DC ---
- Discharge Diagnoses Current Active Problems: Lower back pain due to lumbar degenerative disease and lumbar facet spondylosis Reason(s) for Visit for Discharge Instructions: Patient has right lumbar facets blocks at the right L3-4 L4-5-S1 under fluoroscopy You will use the following diet at home:: No restrictions Your food should be the consistency of: Regular Discharge Activity: Return to Normal Activity Return to work on:: 09/24/18 May shower in (days): 1 May resume sexual activity in: No Restrictions Weight Bearing Status: Weight bearing as tolerated Call your doctor if your incision/area has: Continuous Slow Oozing, Sudden Increased Bleeding, Increased Pain/ Swelling, Increased Redness, Foul Smelling Discharge, Swelling at the incision site Call your doctor if you observe: Fever of 101 or Higher, Uncontrolled pain Suture Line Care: Avoid Pulling/Pushing, Avoid Pinching/Bending Change Dressing in (Days):: 0 Remove Dressing in (days):: 1 Cleanse incision/area with: Soap & Water Instructions: What Is Osteoarthritis?, Living with Osteoarthritis, Osteoarthritis: Coping with Pain, Osteoarthritis: Protecting Your Joints Allergies/Adverse Reactions: Allergies No Known Allergies Allergy (Verified 07/21/18 12:36) Medications to take at Discharge Butalb/Acetaminophen/Caffeine [Fioricet 50-300-40 mg Capsule] 1 each PO Q4H PRN PRN 02/16/14 Diphenoxylate HCl/Atropine [Lomotil 2.5-0.025 mg Tablet] 2.5 mg PO TID PRN PRN 02/16/14 Duloxetine Hcl [Cymbalta] 60 mg PO DAILY 02/16/14 Atenolol [Tenormin (beta tyler)] 25 mg PO BID 06/09/15 Hydroxychloroquine [Plaquenil] 200 mg PO DAILY 06/09/15 Ropinirole HCl [Requip] 0.5 mg PO QHS 06/09/15 Sumatriptan Succinate [Imitrex] 100 mg PO .X1 PRN MDD MIGRAINE 06/09/15 Gabapentin [Neurontin] 200 mg PO DAILY 09/20/16 Gabapentin [Neurontin] 300 mg PO QHS 09/20/16 Iron Carbonyl [Feosol] 65 mg PO BID 04/19/17 Lidocaine/Transparent Dressing [Lidocaine 4% Kit] 1 each TP BID PRN 09/13/17 Prednisone 10 mg PO PRN PRN 04/19/17 Multivitamins,Therapeutic [Multivitamin] 1 tablet PO DAILY 01/29/18 Hydrocodone/Acetaminophen [[place] 5-325 Tablet] 1 each PO BID PRN PRN 03/09/18 Cholecalciferol (VIT D3) [Vitamin D3] 1,000 unit PO DAILY 07/21/18 Folic Acid 0.4 mg PO DAILY@0800 07/21/18 Furosemide [Lasix] 20 mg PO DAILY PRN PRN 07/21/18 Pantoprazole Sodium [Protonix] 40 mg PO DAILY 07/21/18 buPROPion XL [Wellbutrin Xl] 150 mg PO DAILY 07/21/18 Primary Care Physician: Candice Amado DO [Primary Care Provider] - Test Results: Test results from this visit will be discussed in further detail at your follow-up appointment, if applicable. Please Follow Up With: Eris Jimenez MD
--- NOTE | 2018-09-21 14:44 | OP.PCM_ITS ---
Problem List (1) Low back pain Status: Acute (2) Low back pain Status: Acute (3) Spondylosis of lumbar region without myelopathy or radiculopathy Status: Chronic Report of Operation Date of Procedure: 09/21/18 Pre-Operative Diagnosis: Lumbar facet spondylosis Post-Operative Diagnosis: Lower back pain and lumbar facet spondylosis Surgery/Procedure Performed:: Right-sided lumbar facet blocks at the level of the right at L3-4 L4-5-S1 under fluoroscopy guidance Description of Surgical Findings:: Under sterile conditions. Patient placed in the prone position, pressure points were padded, patient was ready from the nursing and the anesthesia team. After identification of the side and the target area for the block under guided fluoroscopy, the entry site was marked with marking pen. I used Betadine for sterilization of the skin, sterile draping were applied. Using 25-gauge needle to infiltrate the skin with local anesthesia using preservative-free lidocaine 0.5% injected 2.5 mL at each site of entry. Using oblique fluoroscopy, accessed the right medial nerve branch supplying the [right] lumbar facets L3-4, L4-5, L5-S1 using 22-gauge spinal needle. After confirmation of appropriate needle placement to the targeted area with AP and lateral fluoroscopy, injected 2.5 mL mixture of preservative-free Marcaine 0.5% and Kenalog [20] mg at each site. [place] was removed, pressure dressing were applied. Patient tolerated the procedure well and was taken to the recovery. Type of Anesthesia:: Local MAC, MAC - Complications None
[2018-09-21 14:48] VITALS: BP 128/73; BP 167/67; PULSE 76; RESP 18; TEMP 37; O2SAT 100
[2018-09-21 14:51] VITALS: BP 141/67; BP 167/67; PULSE 68; RESP 16; O2SAT 100
[2018-09-21 14:55] VITALS: BP 143/72; BP 167/67; PULSE 69; RESP 16; O2SAT 99
[2018-09-21 14:59] VITALS: BP 148/69; BP 167/67; PULSE 68; RESP 16; TEMP 36.8; O2SAT 100
[2018-09-21 15:25] VITALS: BP 167/67
== END 2018-09-21 15:32 | disposition home or self-care (01) ==
LOC: SDC 12:33 → AC 12:33
PROVIDERS: Family Provider Internal Medicine; PCP Internal Medicine; Referring Provider Anesthesiology; Visit Provider Anesthesiology
PROC: 3E0T3BZ Introduction of Anesthetic Agent into Peripheral Nerves and Plexi, Percutaneous Approach (ICD-10-PCS; CPT 64493; principal; 2018-09-21 13:40)
DX: M47.816 Spondylosis without myelopathy or radiculopathy, lumbar region (principal); M51.36 Other intervertebral disc degeneration, lumbar region; M47.817 Spondylosis without myelopathy or radiculopathy, lumbosacral region; M48.062 Spinal stenosis, lumbar region with neurogenic claudication; M46.1 Sacroiliitis, not elsewhere classified; M96.1 Postlaminectomy syndrome, not elsewhere classified; I10 Essential (primary) hypertension; D64.9 Anemia, unspecified; G43.909 Migraine, unspecified, not intractable, without status migrainosus; K21.9 Gastro-esophageal reflux disease without esophagitis; F41.9 Anxiety disorder, unspecified; E66.9 Obesity, unspecified; Z68.39 Body mass index [BMI] 39.0-39.9, adult; Z79.01 Long term (current) use of anticoagulants; Z79.52 Long term (current) use of systemic steroids; Z79.899 Other long term (current) drug therapy; Z78.0 Asymptomatic menopausal state; Z86.718 Personal history of other venous thrombosis and embolism; Z85.828 Personal history of other malignant neoplasm of skin
CPT/HCPCS: 64493; 64494; 64495; 64483; 72100; J7120

== ENCOUNTER → 2018-10-26 14:29 | Outpatient (CLI) | payer MEDICARE, BC, SELFPAY ==
--- NOTE | 2018-10-26 14:36 | RAD_ITS ---
STUDY: X-RAY - UNILATERAL RIBS ( RIGHT ) WITH CHEST REASON FOR EXAM: Female, 83 years old. Posterior right rib pain following a recent fall. TECHNIQUE - RIBS: 4 view(s) of the ribs. TECHNIQUE - CHEST: Single PA view of the chest. COMPARISON: Comparison is made with prior chest radiograph dated January 24, 2018. FINDINGS - RIBS: Normal visualized ribs without a demonstrated fracture. FINDINGS - CHEST: Stable mild increased markings at the lung bases suggestive of bibasilar scarring. There is no demonstrated pleural abnormality. There is moderate cardiac enlargement. There are calcified mediastinal lymph nodes. Normal visualized pulmonary arteries. There is atherosclerotic calcification of the aortic arch with tortuosity. There are diffuse degenerative changes of the visualized thoracic spine. Normal visualized ribs, clavicles, and shoulders. There is no demonstrated abnormality of the visualized soft tissue structures of the upper abdomen. RAD/Ribs Uni Min 3V w/PA Chest IMPRESSION: RIBS: Normal x-ray examination of the ribs. CHEST: Stable examination. Electronically Signed: Sandoval Arteaga, at 10:42 EDT , Service support ,
--- NOTE | 2018-10-26 14:37 | RAD_ITS ---
STUDY: X-RAY - THORACIC SPINE REASON FOR EXAM: Female, 83 years old. fell 3 weeks ago -- pain. TECHNIQUE: 4 view(s) of the thoracic spine were obtained. COMPARISON: September 06, 2017 FINDINGS: Normal kyphosis of the thoracic spine. There is no substantial scoliosis. There is multilevel endplate spondylosis of the thoracic vertebrae. There is multilevel disc space narrowing of the thoracic spine. The soft tissue structures are unremarkable. RAD/Thoracic Spine Min 4 Views IMPRESSION: Moderate degenerative changes Electronically Signed: Yu Patel MD at 9:14 EDT Tel , Service support ,
--- NOTE | 2018-10-26 14:37 | RAD_ITS ---
STUDY: X-RAY - LUMBAR SPINE REASON FOR EXAM: Female, 83 years old. fell 3 weeks ago -- pain -- previous surgery TECHNIQUE: 5 view(s) of the lumbar spine were obtained. COMPARISON: September 06, 2017 FINDINGS: Normal lumbar lordosis. Again noted is a posterior transpedicular screw fusion at L4-S1. There are decompression laminectomies and posterolateral fusion. There is stable grade 1 anterolisthesis at L5/S1 There is multilevel endplate spondylosis of the lumbar vertebrae. There is multi-level degenerative disc disease with multi-level disc space narrowing. The soft tissue structures are unremarkable. RAD/L/S Spine Min 4 Views IMPRESSION: Degenerative changes of the spine. Electronically Signed: Yu Patel MD at 9:13 EDT Tel , Service support ,
== END ==
PROVIDERS: Family Provider Internal Medicine; PCP Internal Medicine; Referring Provider Anesthesiology; Visit Provider Anesthesiology
DX: S23.9XXA Sprain of unspecified parts of thorax, initial encounter (principal); S33.5XXA Sprain of ligaments of lumbar spine, initial encounter; W19.XXXA Unspecified fall, initial encounter; Y93.9 Activity, unspecified; Y92.9 Unspecified place or not applicable; Y99.9 Unspecified external cause status
CPT/HCPCS: 71101; 72074; 72110

== ENCOUNTER 2018-11-09 12:56 | Day surgery (SDC) | payer MEDICARE, BC, SELFPAY ==
[2018-11-09 13:18] VITALS: BP 157/66; PULSE 71; RESP 16; TEMP 36.4; O2SAT 100; BMI 38.3
--- NOTE | 2018-11-09 14:22 | PCM.DC ---
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 Reason(s) for Visit for Discharge Instructions: Lumbar facets injection for her lumbar facets axial pain You will use the following diet at home:: No restrictions Your food should be the consistency of: Regular May shower in (days): 1 May resume sexual activity in: No Restrictions Weight Bearing Status: Weight bearing as tolerated, Toe touch weight bearing Call your doctor if your incision/area has: Continuous Slow Oozing, Sudden Increased Bleeding, Increased Pain/ Swelling, Increased Redness, Foul Smelling Discharge, Swelling at the incision site Call your doctor if you observe: Fever of 101 or Higher, Coldness, Increased Pain, Numbness or Tingling, Calf discomfort, Uncontrolled pain Suture Line Care: Avoid Pulling/Pushing, Avoid Pinching/Bending Remove Dressing in (days):: 1 Cleanse incision/area with: Soap & Water Instructions: What Is Osteoarthritis?, Understanding Osteoarthritis, Living with Osteoarthritis, Osteoarthritis: Common Sites, Osteoarthritis: Exercise, Osteoarthritis: Coping with Pain, Osteoarthritis Medication, Osteoarthritis: Protecting Your Joints, Osteoarthritis: Injections or Surgery Allergies/Adverse Reactions: Allergies No Known Allergies Allergy (Verified 11/07/18 08:31) Medications to take at Discharge Butalb/Acetaminophen/Caffeine [Fioricet 50-300-40 mg Capsule] 1 each PO Q4H PRN PRN 02/16/14 Diphenoxylate HCl/Atropine [Lomotil 2.5-0.025 mg Tablet] 2.5 mg PO TID PRN PRN 02/16/14 Duloxetine Hcl [Cymbalta] 60 mg PO BID 02/16/14 Atenolol [Tenormin (beta tyler)] 25 mg PO BID 06/09/15 Hydroxychloroquine [Plaquenil] 200 mg PO DAILY 06/09/15 Ropinirole HCl [Requip] 0.5 mg PO QHS 06/09/15 Sumatriptan Succinate [Imitrex] 100 mg PO .X1 PRN MDD MIGRAINE 06/09/15 Gabapentin [Neurontin] 100 mg PO BID 09/20/16 Gabapentin [Neurontin] 300 mg PO QHS 09/20/16 Iron Carbonyl [Feosol] 65 mg PO BID 04/19/17 Lidocaine/Transparent Dressing [Lidocaine 4% Kit] 1 each TP BID PRN 04/19/17 Prednisone 10 mg PO PRN PRN 04/19/17 Multivitamins,Therapeutic [Multivitamin] 1 tablet PO DAILY 01/29/18 Hydrocodone/Acetaminophen [[place] 5-325 Tablet] 1 each PO BID PRN PRN 03/09/18 Cholecalciferol (VIT D3) [Vitamin D3] 1,000 unit PO DAILY 07/21/18 Folic Acid 0.4 mg PO DAILY@0800 07/21/18 Furosemide [Lasix] 20 mg PO DAILY PRN PRN 07/21/18 Pantoprazole Sodium [Protonix] 40 mg PO DAILY 07/21/18 Primary Care Physician: Candice Amado DO [Primary Care Provider] - Test Results: Test results from this visit will be discussed in further detail at your follow-up appointment, if applicable. Please Follow Up With: Eris Jimenez MD
--- NOTE | 2018-11-09 14:25 | DCINST_ITS ---
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 Reason(s) for Visit for Discharge Instructions: Lumbar facets injection for her lumbar facets axial pain You will use the following diet at home:: No restrictions Your food should be the consistency of: Regular May shower in (days): 1 May resume sexual activity in: No Restrictions Weight Bearing Status: Weight bearing as tolerated, Toe touch weight bearing Call your doctor if your incision/area has: Continuous Slow Oozing, Sudden Increased Bleeding, Increased Pain/ Swelling, Increased Redness, Foul Smelling Discharge, Swelling at the incision site Call your doctor if you observe: Fever of 101 or Higher, Coldness, Increased Pain, Numbness or Tingling, Calf discomfort, Uncontrolled pain Suture Line Care: Avoid Pulling/Pushing, Avoid Pinching/Bending Remove Dressing in (days):: 1 Cleanse incision/area with: Soap & Water Instructions: What Is Osteoarthritis?, Understanding Osteoarthritis, Living with Osteoarthritis, Osteoarthritis: Common Sites, Osteoarthritis: Exercise, Osteoarthritis: Coping with Pain, Osteoarthritis Medication, Osteoarthritis: Protecting Your Joints, Osteoarthritis: Injections or Surgery Allergies/Adverse Reactions: Allergies No Known Allergies Allergy (Verified 11/07/18 08:31) Medications to take at Discharge Butalb/Acetaminophen/Caffeine [Fioricet 50-300-40 mg Capsule] 1 each PO Q4H PRN PRN 02/16/14 Diphenoxylate HCl/Atropine [Lomotil 2.5-0.025 mg Tablet] 2.5 mg PO TID PRN PRN 02/16/14 Duloxetine Hcl [Cymbalta] 60 mg PO BID 02/16/14 Atenolol [Tenormin (beta tyler)] 25 mg PO BID 06/09/15 Hydroxychloroquine [Plaquenil] 200 mg PO DAILY 06/09/15 Ropinirole HCl [Requip] 0.5 mg PO QHS 06/09/15 Sumatriptan Succinate [Imitrex] 100 mg PO .X1 PRN MDD MIGRAINE 06/09/15 Gabapentin [Neurontin] 100 mg PO BID 09/20/16 Gabapentin [Neurontin] 300 mg PO QHS 09/20/16 Iron Carbonyl [Feosol] 65 mg PO BID 04/19/17 Lidocaine/Transparent Dressing [Lidocaine 4% Kit] 1 each TP BID PRN 04/19/17 Prednisone 10 mg PO PRN PRN 04/19/17 Multivitamins,Therapeutic [Multivitamin] 1 tablet PO DAILY 01/29/18 Hydrocodone/Acetaminophen [[place] 5-325 Tablet] 1 each PO BID PRN PRN 03/09/18 Cholecalciferol (VIT D3) [Vitamin D3] 1,000 unit PO DAILY 07/21/18 Folic Acid 0.4 mg PO DAILY@0800 07/21/18 Furosemide [Lasix] 20 mg PO DAILY PRN PRN 07/21/18 Pantoprazole Sodium [Protonix] 40 mg PO DAILY 07/21/18 Primary Care Physician: Candice Amado DO [Primary Care Provider] - Test Results: Test results from this visit will be discussed in further detail at your follow- up appointment, if applicable. Please Follow Up With: Eris Jimenez MD
--- NOTE | 2018-11-09 14:27 | OP.PCM_ITS ---
Problem List (1) Low back pain Status: Acute (2) Low back pain Status: Acute (3) Spondylosis of lumbar region without myelopathy or radiculopathy Status: Chronic Report of Operation Date of Procedure: 11/09/18 Pre-Operative Diagnosis: Lumbar facet spondylosis and lumbar facets arthritis Post-Operative Diagnosis: Same Surgery/Procedure Performed:: Right-sided lumbar facets medial nerve branch block under fluoroscopy guidance to the right side L3-4 L4-5-S1 Description of Surgical Findings:: Under sterile conditions. Patient placed in the prone position, pressure points were padded, patient was ready from the nursing and the anesthesia team. After identification of the side and the target area for the block under guided fluoroscopy, the entry site was marked with marking pen. I used Betadine for sterilization of the skin, sterile draping were applied. Using 25-gauge needle to infiltrate the skin with local anesthesia using preservative-free lidocaine 0.5% injected 2.5 mL at each site of entry. Using oblique fluoroscopy, accessed the right medial nerve branch supplying the [right] lumbar facets L3-4, L4-5, L5-S1 using 22-gauge spinal needle. After confirmation of appropriate needle placement to the targeted area with AP and lateral fluoroscopy, injected 2.5 mL mixture of preservative-free Marcaine 0.5% and Kenalog [20] mg at each site. Total number of injection was 4, total needle used for to the floor lumbar facets medial nerve branch supplying the right side L3-4 L4-5-S1 facets joints [place] was removed, pressure dressing were applied. Patient tolerated the procedure well and was taken to the recovery. Type of Anesthesia:: Local MAC, MAC Estimated Blood Loss (mL): None
--- NOTE | 2018-11-09 14:29 | RAD_ITS ---
STUDY: X-RAY - LUMBAR SPINE REASON FOR EXAM: Female, 83 years old. Lumbar facet blocks L3-S1 TECHNIQUE: Fluoroscopic assistance was provided to Dr. Jimenez. 3 fluoroscopic spot view(s) of the lumbar spine were obtained. FLUOROSCOPY TIME: 28.3 seconds RADIATION DOSAGE (If Supplied By Facility): ( 16.91 ) mGy COMPARISON: 5 films of the lumbar spine October 26, 2018. FINDINGS: Prior L4 laminectomies and bilateral posterior fusion of the spine with metal hardware and bone graft material again noted. Images demonstrate placement of needles to the right L2-3, L3-4, L4-5, and L5-S1 facet regions. RAD/L/S Spine Min 4 Views IMPRESSION: Fluoroscopic guidance for L3-S1 facet blocks. Electronically Signed: Willy Mitchell MD at 20:10 EDT , Service support ,
[2018-11-09] MEDS: Bupivacaine 0.25% 30 ML Vial (14:43)
[2018-11-09] MEDS: Triamcinolone Acetonide 40 MG/ML Vial ×2 (14:44)
[2018-11-09 14:50] VITALS: BP 134/114; BP 157/66; PULSE 68; RESP 16; TEMP 36.5; O2SAT 100
[2018-11-09 14:55] VITALS: BP 142/129; BP 157/66; PULSE 67; RESP 16; O2SAT 100
[2018-11-09 15:00] VITALS: BP 157/66; BP 164/80; PULSE 66; RESP 16; O2SAT 100
[2018-11-09 15:05] VITALS: BP 157/66; BP 175/79; PULSE 64; RESP 16; TEMP 36.3; O2SAT 100
[2018-11-09 15:22] VITALS: BP 157/66
== END 2018-11-09 15:35 | disposition home or self-care (01) ==
LOC: SDC 12:57 → AC 13:00
PROVIDERS: Family Provider Internal Medicine; PCP Internal Medicine; Referring Provider Anesthesiology; Visit Provider Anesthesiology
PROC: 3E0T3BZ Introduction of Anesthetic Agent into Peripheral Nerves and Plexi, Percutaneous Approach (ICD-10-PCS; CPT 64493; principal; 2018-11-09 13:55)
DX: M47.27 Other spondylosis with radiculopathy, lumbosacral region (principal); M47.26 Other spondylosis with radiculopathy, lumbar region; M48.062 Spinal stenosis, lumbar region with neurogenic claudication; M17.0 Bilateral primary osteoarthritis of knee; M46.46 Discitis, unspecified, lumbar region; M46.1 Sacroiliitis, not elsewhere classified; G89.29 Other chronic pain; I10 Essential (primary) hypertension; S33.5XXA Sprain of ligaments of lumbar spine, initial encounter; X58.XXXA Exposure to other specified factors, initial encounter; Y93.9 Activity, unspecified; Y92.9 Unspecified place or not applicable; Y99.9 Unspecified external cause status; D64.9 Anemia, unspecified; K21.9 Gastro-esophageal reflux disease without esophagitis; Z78.0 Asymptomatic menopausal state; Z86.718 Personal history of other venous thrombosis and embolism; Z87.2 Personal history of diseases of the skin and subcutaneous tissue
CPT/HCPCS: 64493; 64494; 64495; 64483; 72110; J7120

== ENCOUNTER → 2018-12-11 15:05 | Outpatient (CLI) | payer MEDICARE, BC, SELFPAY ==
[2018-12-11 17:44] LABS: Absolute Lymphocyte Count 1.27 X10^3/ul (0.83-4.51); Absolute Neutrophil Count 6.3 X10^3/uL (2.0-7.7); Basophil# 0.03 X10^3/uL; Basophil% 0.3 % (0-1); Eosinophil# 0.14 X10^3/uL; Eosinophils% 1.6 % (0-5); Hematocrit 39.1 % (37-47); Hemoglobin 11.9 g/dl (12.0-15.0); Lymphocyte # 1.27 X10^3/ul (4.0); Lymphocyte % 14.8 % (19-41); Mean Corp Hgb Conc 30.4 g/gl (32-36); Mean Corpuscular Hgb 28.9 pg (27.0-32.0); Mean Corpuscular Volume 94.9 fL (81-99); Mean Platelet Vol. 9.4 fl (6.2-12.0); Monocyte# 0.77 X10^3/uL; Neutrophil # 6.26 X10^3/uL (2.7-7.7); Neutrophil % 72.8 % (47-70); Platelet Count 275 K/mm3 (150-450); RBC Distribution Width CV 18.7 % (11.6-14.6); RBC Distribution Width SD 62.9 fl (35.1-43.9); Red Blood Count 4.12 M/mm3 (4.2-5.4); White Blood Count 8.6 K/mm3 (4.4-11.0)
[2018-12-11 17:47] LABS: POSITIVE COUNT NO; POSITIVE DIFFERENTIAL NO; POSITIVE MORPHOLOGY NO
[2018-12-11 17:53] LABS: AST(SGOT) 27 U/L (15-37); Alanine Aminotransfer ALT/SGPT 49 U/L (13-56); Albumin, Serum 3.3 g/dL (3.2-5.0); Alkaline Phosphatase 106 U/L (45-117); Anion Gap 7 (5-15); BUN 26 mg/dL (7-18); BUN/Creat Ratio 18.2 RATIO (10-20); Calcium,Total 9.3 mg/dL (8.5-10.1); Chloride 112 mmol/L (98-107); Creatinine, Serum 1.43 mg/dL (0.55-1.02); EST Glomerular Filtration Rate 37 mL/min (>60); Est Glom Filt Rate - Afr Amer 45 mL/min (>60); Globulin 3.4 g/dL (2.2-4.2); Glucose 97 mg/dL (74-106); Potassium 4.4 mmol/L (3.5-5.1); Protein, Total 6.7 g/dL (6.4-8.2); Sodium Level 144 mmol/L (136-145)
== END ==
PROVIDERS: Family Provider Internal Medicine; PCP Internal Medicine; Referring Provider Internal Medicine Rheumatology; Visit Provider Internal Medicine Rheumatology
DX: M06.00 Rheumatoid arthritis without rheumatoid factor, unspecified site (principal); M79.7 Fibromyalgia; M15.9 Polyosteoarthritis, unspecified; G25.81 Restless legs syndrome; F32.89 Other specified depressive episodes; E78.5 Hyperlipidemia, unspecified; M47.897 Other spondylosis, lumbosacral region; K21.0 Gastro-esophageal reflux disease with esophagitis; Z79.899 Other long term (current) drug therapy
CPT/HCPCS: 36415; 80053; 85025

== ENCOUNTER → 2019-02-13 12:49 | Outpatient (CLI) | payer MEDICARE, BC, SELFPAY ==
[2019-02-13 13:04] LABS: Absolute Lymphocyte Count 0.96 X10^3/ul (0.83-4.51); Absolute Neutrophil Count 4.8 X10^3/uL (2.0-7.7); Basophil# 0.05 X10^3/uL; Basophil% 0.7 % (0-1); Eosinophil# 0.54 X10^3/uL; Eosinophils% 7.2 % (0-5); Hematocrit 26.9 % (37-47); Hemoglobin 7.8 g/dl (12.0-15.0); Lymphocyte # 0.96 X10^3/ul (4.0); Lymphocyte % 12.7 % (19-41); Mean Corpuscular Hgb 26.4 pg (27.0-32.0); Mean Corpuscular Volume 91.2 fL (81-99); Mean Platelet Vol. 9.3 fl (6.2-12.0); Monocyte# 1.17 X10^3/uL; Monocyte% 15.5 % (0-10); Neutrophil # 4.75 X10^3/uL (2.7-7.7); Neutrophil % 63.1 % (47-70); Platelet Count 328 K/mm3 (150-450); RBC Distribution Width CV 15.7 % (11.6-14.6); RBC Distribution Width SD 50.3 fl (35.1-43.9); Red Blood Count 2.95 M/mm3 (4.2-5.4); White Blood Count 7.5 K/mm3 (4.4-11.0)
[2019-02-13 13:05] LABS: POSITIVE COUNT NO; POSITIVE DIFFERENTIAL NO; POSITIVE MORPHOLOGY NO
== END ==
PROVIDERS: Family Provider Internal Medicine; PCP Internal Medicine; Referring Provider Internal Medicine; Visit Provider Internal Medicine
DX: R06.02 Shortness of breath (principal)
CPT/HCPCS: 85025

== ENCOUNTER → 2019-02-14 08:24 | Outpatient (CLI) | payer MEDICARE, BC, SELFPAY ==
[2019-02-14] VITALS (7 sets, daily range): BP systolic 137–162; BP diastolic 59–82; PULSE 86–96; RESP 16–18; TEMP 36.4–36.9; O2SAT 95–98
[2019-02-14] MEDS: Furosemide 20 MG/2 ML VIAL IV (10:58)
== END ==
PROVIDERS: Family Provider Internal Medicine; PCP Internal Medicine; Referring Provider Internal Medicine; Visit Provider Internal Medicine
DX: D64.9 Anemia, unspecified (principal)
CPT/HCPCS: 36415; 36430; 86850; 86900; 86920; 86922; J7040; P9016; A4216; J1940

== ENCOUNTER 2019-02-22 14:02 | Day surgery (SDC) | payer MEDICARE, BC, SELFPAY ==
[2019-02-22 14:39] VITALS: BP 156/83; PULSE 92; RESP 18; TEMP 36.6; O2SAT 96; BMI 38.7
--- NOTE | 2019-02-22 16:00 | RAD_ITS ---
PROCEDURE: Left L3-S1 facet blocks. INDICATION: Female, 83 years old. Pain FLUOROSCOPY TIME (if supplied): (0:16) minutes/seconds RADIATION DOSAGE (If Supplied By Facility): CTDIvol = ( 10.37 ) mGy, DLP = ( ) mGycm PROCEDURE/TECHNIQUE: 4 procedural images were presented for interpretation. Study demonstrates placement of needles at the left facet joints of L3-4 and L4-5 and L5-S1. There is evidence of L4-S1 posterior fusion. Please refer to the operative report for further details. RAD/Lumbar Spine 2 or 3 Views IMPRESSION: Left L3-S1 facet blocks in the OR. Electronically Signed: Simon Saucedo DO at 18:25 EDT Tel [phone], Service support ,
--- NOTE | 2019-02-22 16:04 | PCM.DC ---
- Discharge Diagnoses Current Active Problems: Lower back pain due to lumbar facet spondylosis Reason(s) for Visit for Discharge Instructions: Left-sided lumbar facet medial nerve branch block at the level of the left side L3-4 L4-5-S1 on the first with tightness You will use the following diet at home:: No restrictions Your food should be the consistency of: Regular Discharge Activity: Return to Normal Activity May shower in (days): 1 May resume sexual activity in: No Restrictions Weight Bearing Status: Weight bearing as tolerated, Partial weight bearing, Toe touch weight bearing, No weight bearing Call your doctor if your incision/area has: Continuous Slow Oozing, Sudden Increased Bleeding, Increased Pain/ Swelling, Increased Redness, Foul Smelling Discharge, Swelling at the incision site Call your doctor if you observe: Fever of 101 or Higher, Coldness, Increased Pain, Numbness or Tingling Suture Line Care: Avoid Pulling/Pushing, Avoid Pinching/Bending Remove Dressing in (days):: 1 Cleanse incision/area with: Soap & Water Instructions: What Is Osteoarthritis?, Understanding Osteoarthritis, Osteoarthritis: Coping with Pain, Osteoarthritis: Managing Pain, Osteoarthritis: Injections or Surgery, Osteoarthritis: Tips for Daily Living, Osteoarthritis: Exercise, Osteoarthritis: Common Sites, Living with Osteoarthritis Allergies/Adverse Reactions: Allergies No Known Allergies Allergy (Verified 11/07/18 08:31) Medications to take at Discharge Butalb/Acetaminophen/Caffeine [Fioricet 50-300-40 mg Capsule] 1 each PO Q4H PRN PRN 02/16/14 Diphenoxylate HCl/Atropine [Lomotil 2.5-0.025 mg Tablet] 2.5 mg PO TID PRN PRN 02/16/14 Duloxetine Hcl [Cymbalta] 60 mg PO BID 02/16/14 Atenolol [Tenormin (beta tyler)] 25 mg PO BID 06/09/15 Hydroxychloroquine [Plaquenil] 200 mg PO DAILY 06/09/15 Ropinirole HCl [Requip] 0.5 mg PO QHS 06/09/15 Sumatriptan Succinate [Imitrex] 100 mg PO .X1 PRN MDD MIGRAINE 06/09/15 Gabapentin [Neurontin] 100 mg PO BID 09/20/16 Gabapentin [Neurontin] 300 mg PO QHS 09/20/16 Iron Carbonyl [Feosol] 65 mg PO BID 04/19/17 Lidocaine/Transparent Dressing [Lidocaine 4% Kit] 1 each TP BID PRN 04/19/17 Prednisone 10 mg PO PRN PRN 04/19/17 Multivitamins,Therapeutic [Multivitamin] 1 tablet PO DAILY 01/29/18 Hydrocodone/Acetaminophen [[place] 5-325 Tablet] 1 each PO BID PRN PRN 03/09/18 Cholecalciferol (VIT D3) [Vitamin D3] 1,000 unit PO DAILY 07/21/18 Folic Acid 0.4 mg PO DAILY@0800 07/21/18 Furosemide [Lasix] 20 mg PO DAILY PRN PRN 07/21/18 Pantoprazole Sodium [Protonix] 40 mg PO DAILY 07/21/18 Primary Care Physician: Candice Amado DO [Primary Care Provider] - Test Results: Test results from this visit will be discussed in further detail at your follow-up appointment, if applicable. Please Follow Up With: Eris Jimenez MD
--- NOTE | 2019-02-22 16:06 | PCM.OPRPT ---
Problem List (1) Spondylosis of lumbar region without myelopathy or radiculopathy Status: Chronic Report of Operation Date of Procedure: 02/22/19 Pre-Operative Diagnosis: Lumbar facet spondylosis Post-Operative Diagnosis: Lumbar facet spondylosis Surgery/Procedure Performed:: Left-sided lumbar facets median nerve branch block at the level of the left L3-4 L4-5 L5-S1 t under fluoroscopy guidance Description of Surgical Findings:: Under sterile conditions. Patient placed in the prone position, pressure points were padded, patient was ready from the nursing and the anesthesia team. After identification of the side and the target area for the block under guided fluoroscopy, the entry site was marked with marking pen. I used Betadine for sterilization of the skin, sterile draping were applied. Using 25-gauge needle to infiltrate the skin with local anesthesia using preservative-free lidocaine 0.5% injected 2.5 mL at each site of entry. Using oblique fluoroscopy, accessed the left medial nerve branch supplying the left lumbar facets L3-4, L4-5, L5-S1 using 22-gauge spinal needle. After confirmation of appropriate needle placement to the targeted area with AP and lateral fluoroscopy, injected 2.5 mL mixture of preservative-free Marcaine 0.5% and Kenalog [20] mg at each site. [place] was removed, pressure dressing were applied. Patient tolerated the procedure well and was taken to the recovery. Type of Anesthesia:: Local MAC
[2019-02-22] MEDS: Triamcinolone Acetonide 40 MG/ML Vial (16:11)
[2019-02-22] MEDS: Bupivacaine 0.25% 30 ML Vial (16:11)
[2019-02-22 16:22] VITALS: BP 156/83; BP 166/109; PULSE 90; RESP 16; TEMP 36.5; O2SAT 100
[2019-02-22 16:25] VITALS: BP 156/83; BP 160/66; PULSE 88; RESP 16; O2SAT 99
[2019-02-22 16:30] VITALS: BP 156/83; BP 171/73; PULSE 82; RESP 16; O2SAT 96
[2019-02-22 16:35] VITALS: BP 156/83; BP 162/83; PULSE 82; RESP 16; TEMP 36.7; O2SAT 97
[2019-02-22 17:00] VITALS: BP 156/83
--- NOTE | 2019-03-15 17:08 | HP.PCM_ITS ---
Problem List (1) Spondylosis of lumbar region without myelopathy or radiculopathy Status: Chronic (2) Low back pain Status: Acute (3) Low back pain Status: Acute History of Present Illness Date of Admission: 02/22/19 - This is the H&P for the procedure patient received on 02/22/2019 Chief Complaint: Lower back pain, worse on the left side The patient is a 83 year old F, has lumbar degenerative disc disease, lumbar facet spondylosis, she has successful results after the right lumbar facets injection, she is complaining of pain on the left side, mostly her pain is axial with rotation twisting, she does not have any radiating leg pain. 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 Allergies No Known Allergies Allergy (Verified 11/07/18 08:31) Home Medications: Ambulatory Orders Medication Instructions Recorded Butalb/Acetaminophen/Caffeine 1 each PO Q4H PRN PRN 02/16/14 [Fioricet 50-300-40 mg Capsule] Diphenoxylate HCl/Atropine 2.5 mg PO TID PRN PRN 02/16/14 [Lomotil 2.5-0.025 mg Tablet] Duloxetine Hcl [Cymbalta] 60 mg PO BID 02/16/14 Atenolol [Tenormin (beta tyler)] 25 mg PO BID 06/09/15 Hydroxychloroquine [Plaquenil] 200 mg PO DAILY 06/09/15 Ropinirole HCl [Requip] 0.5 mg PO QHS 06/09/15 Sumatriptan Succinate [Imitrex] 100 mg PO .X1 PRN MDD MIGRAINE 06/09/15 Gabapentin [Neurontin] 100 mg PO BID 09/20/16 Gabapentin [Neurontin] 300 mg PO QHS 09/20/16 Iron Carbonyl [Feosol] 65 mg PO BID 04/19/17 Lidocaine/Transparent Dressing 1 each TP BID PRN 04/19/17 [Lidocaine 4% Kit] Prednisone 10 mg PO PRN PRN 04/19/17 Multivitamins,Therapeutic 1 tablet PO DAILY 01/29/18 [Multivitamin] Hydrocodone/Acetaminophen [[place] 1 each PO BID PRN PRN 03/09/18 5-325 Tablet] Cholecalciferol (VIT D3) [Vitamin 1,000 unit PO DAILY 07/21/18 D3] Folic Acid 0.4 mg PO DAILY@0800 07/21/18 Furosemide [Lasix] 20 mg PO DAILY PRN PRN 07/21/18 Pantoprazole Sodium [Protonix] 40 mg PO DAILY 07/21/18 Surgical History: appendectomy, hysterectomy, tonsillectomy, - - back surgery, carpal tunnel tarsal tunnel Psychiatric History: No pertinent psych hx [employer] History: No pertinent [employer] history Smoking Status: Never smoker - *Family History Maternal History Items: Heart Disease Paternal History Items: No pertinent history Review of Systems HEENT: Denies: Head Aches, Sinus Congestion, Sinus Drainage Cardiovascular: Denies: Chest Pain, Palpitations Respiratory: Denies: Cough, Shortness of breath at rest, Sputum production Gastrointestinal: Denies: Abdominal Pain, Nausea, Vomiting Genitourinary: Denies: Dysuria Musculoskeletal: Reports: Arm Pain, Back Pain, Foot Pain, Joint Pain, Joint stiffness, Leg Pain, Muscle pain, Neck Pain Skin: Denies: Rash, Wounds Neurological: Reports: Balance problems Psychiatric: Reports: Anxiety, Depression Hematologic/ Lymphatic: Reports: Easy Bruising VTE Information - Inpt Only VTE Present on Admission: No VTE Pharm Prophylaxis ordered?: No - Physical Exam General: Alert, Oriented x3, Cooperative HEENT: Atraumatic, PERRLA, EOMI, Normocephalic Neck: Supple, No JVD, Negative Carotid Bruits Lungs: Clear to auscultation, Normal air movement Cardiovascular: Regular rate, No murmurs Abdomen: Bowel Sounds Present, Soft, Non Tender Extremities: No edema, Capillary Refill Less than 3 Seconds Skin: No rashes, No breakdown Musculoskeletal: Tenderness, - - Bilateral lumbar facets pain, restriction range of motion, worse pain on the left lumbar facets with facet loading's Lymphatic: No Cervical, Supraclavicular, or Inguinal Adenopathy Neurological: Cranial nerves II-XII grossly intact Psych/Mental Status: Normal Affect, Appropriate, Anxious Vital Signs Temp Pulse Resp BP Pulse Ox 98.1 F 82 16 162/83 H 97 02/22/19 16:35 02/22/19 16:35 02/22/19 16:35 02/22/19 16:35 02/22/19 16:35 Oxygen Delivery Method Room Air Weight: 87.1 kg Body Mass Index (BMI) 38.7 Assessment/Plan All Active Problems (Last Updated 03/15/19 @ 17:10 by Eris Jimenez MD) Anemia (Acute) Low back pain (Acute) Low back pain (Acute) Patient has lumbar facet tenderness, she has successful results with right lumbar facet injection, she has more tenderness on the left side, will proceed with left lumbar facet injection. Risk benefits alternatives the procedure discussed Code Visit Inpatient E&M: 56896 Init Hosp L2
== END 2019-02-22 17:21 | disposition home or self-care (01) ==
LOC: SDC 14:04 → AC 14:05
PROVIDERS: Family Provider Internal Medicine; PCP Internal Medicine; Referring Provider Anesthesiology; Visit Provider Anesthesiology
PROC: 3E0T3BZ Introduction of Anesthetic Agent into Peripheral Nerves and Plexi, Percutaneous Approach (ICD-10-PCS; CPT 64493; principal; 2019-02-22 15:15)
DX: M47.816 Spondylosis without myelopathy or radiculopathy, lumbar region (principal); M51.36 Other intervertebral disc degeneration, lumbar region; I10 Essential (primary) hypertension; M06.9 Rheumatoid arthritis, unspecified; K44.9 Diaphragmatic hernia without obstruction or gangrene; G43.909 Migraine, unspecified, not intractable, without status migrainosus; J45.909 Unspecified asthma, uncomplicated; K21.9 Gastro-esophageal reflux disease without esophagitis; F32.9 Major depressive disorder, single episode, unspecified; F41.9 Anxiety disorder, unspecified; Z79.52 Long term (current) use of systemic steroids; Z79.899 Other long term (current) drug therapy; Z78.0 Asymptomatic menopausal state; Z86.718 Personal history of other venous thrombosis and embolism; Z85.828 Personal history of other malignant neoplasm of skin; Z90.710 Acquired absence of both cervix and uterus
CPT/HCPCS: 64493; 64494; 64495; 64483; 72100; J7120

== ENCOUNTER 2019-04-05 13:12 | Day surgery (SDC) | payer MEDICARE, BC, SELFPAY ==
[2019-04-05] VITALS (8 sets, daily range): BP systolic 141–164; BP diastolic 47–90; PULSE 68–73; RESP 16; TEMP 36.4–36.7; O2SAT 100; BMI 36.9
[2019-04-05] MEDS: Lactated Ringers 1,000 ML 75 ML IV (13:49)
--- NOTE | 2019-04-05 15:13 | DCINST_ITS ---
- Discharge Diagnoses Current Active Problems: Lower back pain, right-sided facet joints pain Reason(s) for Visit for Discharge Instructions: Receiving right-sided lumbar facet L3-4 L4-5 5 S1 under fluoroscopy guidance You will use the following diet at home:: No restrictions Your food should be the consistency of: Regular Discharge Activity: Return to Normal Activity May shower in (days): 1 May resume sexual activity in: No Restrictions Weight Bearing Status: Weight bearing as tolerated, Full weight bearing Call your doctor if your incision/area has: Continuous Slow Oozing, Sudden Increased Bleeding, Increased Pain/ Swelling, Foul Smelling Discharge, Swelling at the incision site Call your doctor if you observe: Fever of 101 or Higher, Coldness, Increased Pain, Numbness or Tingling, Uncontrolled pain Suture Line Care: Avoid Pulling/Pushing, Avoid Pinching/Bending Remove Dressing in (days):: 1 Cleanse incision/area with: Soap & Water Allergies/Adverse Reactions: Allergies No Known Allergies Allergy (Verified 04/05/19 13:25) Medications to take at Discharge Butalb/Acetaminophen/Caffeine [Fioricet 50-300-40 mg Capsule] 1 each PO Q4H PRN PRN 02/16/14 Diphenoxylate HCl/Atropine [Lomotil 2.5-0.025 mg Tablet] 2.5 mg PO TID PRN PRN 02/16/14 Duloxetine Hcl [Cymbalta] 60 mg PO BID 02/16/14 Atenolol [Tenormin (beta tyler)] 25 mg PO BID 06/09/15 Hydroxychloroquine [Plaquenil] 200 mg PO DAILY 06/09/15 Ropinirole HCl [Requip] 0.5 mg PO QHS 06/09/15 Sumatriptan Succinate [Imitrex] 100 mg PO .X1 PRN MDD MIGRAINE 06/09/15 Gabapentin [Neurontin] 100 mg PO BID 09/20/16 Gabapentin [Neurontin] 300 mg PO QHS 09/20/16 Iron Carbonyl [Feosol] 65 mg PO BID 04/19/17 Lidocaine/Transparent Dressing [Lidocaine 4% Kit] 1 each TP BID PRN 04/19/17 Prednisone 10 mg PO PRN PRN 04/19/17 Multivitamins,Therapeutic [Multivitamin] 1 tablet PO DAILY 01/29/18 Hydrocodone/Acetaminophen [[place] 5-325 Tablet] 1 each PO BID PRN PRN 03/09/18 Cholecalciferol (VIT D3) [Vitamin D3] 1,000 unit PO DAILY 07/21/18 Folic Acid 0.4 mg PO DAILY@0800 07/21/18 Furosemide [Lasix] 20 mg PO DAILY PRN PRN 07/21/18 Pantoprazole Sodium [Protonix] 40 mg PO DAILY 07/21/18 Primary Care Physician: Candice Amado DO [Primary Care Provider] - Test Results: Test results from this visit will be discussed in further detail at your follow- up appointment, if applicable. Please Follow Up With: Eris Jimenez MD
--- NOTE | 2019-04-05 15:15 | PCM.OPRPT ---
Problem List (1) Spondylosis of lumbar region without myelopathy or radiculopathy Status: Chronic Report of Operation Date of Procedure: 04/05/19 Pre-Operative Diagnosis: Lumbar facet spondylosis Post-Operative Diagnosis: Lumbar facet spondylosis Surgery/Procedure Performed:: Right-sided lumbar facet medial nerve branch block at the level of the right L3-4 L4-5 , L5 S1 Description of Surgical Findings:: Under sterile conditions. Patient placed in the prone position, pressure points were padded, patient was ready from the nursing and the anesthesia team. After identification of the side and the target area for the block under guided fluoroscopy, the entry site was marked with marking pen. I used Betadine for sterilization of the skin, sterile draping were applied. Using 25-gauge needle to infiltrate the skin with local anesthesia using preservative-free lidocaine 0.5% injected 2.5 mL at each site of entry. Using oblique fluoroscopy, accessed the right medial nerve branch supplying the [right] lumbar facets L3-4, L4-5, L5-S1 using 22-gauge spinal needle. After confirmation of appropriate needle placement to the targeted area with AP and lateral fluoroscopy, injected 2.5 mL mixture of preservative-free Marcaine 0.5% and Kenalog [20] mg at each site. [place] was removed, pressure dressing were applied. Patient tolerated the procedure well and was taken to the recovery. Type of Anesthesia:: Local MAC - Complications None
--- NOTE | 2019-04-05 15:40 | RAD_ITS ---
PROCEDURE: Right L3 S1 facet joint block. DATE OF EXAMINATION: April 05, 2019. INDICATION: Female, 83 years old. Chronic low back pain. FLUOROSCOPY TIME (if supplied): (0:38) minutes/seconds. 5 cone down intraoperative views were obtained. Intraoperative imaging provided for right L3 S1 facet joint block. RAD/Lumbar Spine 2 or 3 Views IMPRESSION: Intraoperative imaging provided for right L3 S1 facet joint block. Electronically Signed: Sandoval Arteaga, at 10:14 EDT , Service support ,
[2019-04-05] MEDS: Triamcinolone Acetonide 40 MG/ML Vial (15:50)
[2019-04-05] MEDS: Bupivacaine 0.25% 30 ML Vial (15:50)
== END 2019-04-05 16:55 | disposition home or self-care (01) ==
LOC: SDC 13:13 → AC 13:14
PROVIDERS: Family Provider Internal Medicine; PCP Internal Medicine; Referring Provider Anesthesiology; Visit Provider Anesthesiology
PROC: 3E0T3BZ Introduction of Anesthetic Agent into Peripheral Nerves and Plexi, Percutaneous Approach (ICD-10-PCS; CPT 64493; principal; 2019-04-05 14:25)
DX: M47.26 Other spondylosis with radiculopathy, lumbar region (principal); M47.27 Other spondylosis with radiculopathy, lumbosacral region; M51.16 Intervertebral disc disorders with radiculopathy, lumbar region; M17.0 Bilateral primary osteoarthritis of knee; M46.1 Sacroiliitis, not elsewhere classified; M96.1 Postlaminectomy syndrome, not elsewhere classified; I10 Essential (primary) hypertension; D64.9 Anemia, unspecified; G43.909 Migraine, unspecified, not intractable, without status migrainosus; K21.9 Gastro-esophageal reflux disease without esophagitis; F41.9 Anxiety disorder, unspecified; E66.9 Obesity, unspecified; Z68.36 Body mass index [BMI] 36.0-36.9, adult; Z79.01 Long term (current) use of anticoagulants; Z79.52 Long term (current) use of systemic steroids; Z79.899 Other long term (current) drug therapy; Z78.0 Asymptomatic menopausal state; Z85.828 Personal history of other malignant neoplasm of skin
CPT/HCPCS: 01992; 64493; 64494; 64495; 64483; 72100; J7120

== ENCOUNTER → 2019-07-09 16:04 | Outpatient (CLI) | payer MEDICARE, BC, SELFPAY ==
[2019-04-05 13:31] VITALS: BMI 36.9
[2019-07-09 17:33] LABS: Hematocrit 32.4 % (37-47); Hemoglobin 9.5 g/dL (12.0-15.0); Red Blood Count 3.59 M/mm3 (4.2-5.4); White Blood Count 10.7 K/mm3 (4.4-11.0)
[2019-07-09 17:34] LABS: Absolute Lymphocyte Count 0.96 X10^3/uL (0.83-4.51); Absolute Neutrophil Count 8.4 X10^3/uL (2.0-7.7); Basophil# 0.07 X10^3/uL; Basophil% 0.7 % (0-1); Eosinophil# 0.17 X10^3/uL; Eosinophils% 1.6 % (0-5); Lymphocyte # 0.96 X10^3/ul (4.0); Mean Corp Hgb Conc 29.3 g/dL (32-36); Mean Corpuscular Hgb 26.5 pg (27.0-32.0); Mean Corpuscular Volume 90.3 fL (81-99); Mean Platelet Vol. 9.7 fl (6.2-12.0); Monocyte# 0.97 X10^3/uL; Monocyte% 9.1 % (0-10); NRBC Flagged by Analyzer 0 % (0-5); Neutrophil # 8.39 X10^3/uL (2.7-7.7); Neutrophil % 78.8 % (47-70); Platelet Count 360 K/mm3 (150-450); RBC Distribution Width CV 16.5 % (11.6-14.6); RBC Distribution Width SD 54.7 fl (35.1-43.9)
[2019-07-09 18:05] LABS: AST(SGOT) 14 U/L (15-37); Alanine Aminotransfer ALT/SGPT 18 U/L (13-56); Albumin, Serum 3.3 g/dL (3.2-5.0); Alkaline Phosphatase 95 U/L (45-117); Anion Gap 8 (5-15); BUN 26 mg/dL (7-18); BUN/Creat Ratio 16.1 RATIO (10-20); Chloride 110 mmol/L (98-107); Creatinine, Serum 1.61 mg/dL (0.55-1.02); EST Glomerular Filtration Rate 33 mL/min (>60); Est Glom Filt Rate - Afr Amer 39 mL/min (>60); Globulin 3.4 g/dL (2.2-4.2); Glucose 93 mg/dL (74-106); Potassium 4.3 mmol/L (3.5-5.1); Protein, Total 6.7 g/dL (6.4-8.2); Sodium Level 143 mmol/L (136-145)
== END ==
PROVIDERS: Family Provider Internal Medicine; PCP Internal Medicine; Referring Provider Internal Medicine Rheumatology; Visit Provider Internal Medicine Rheumatology
DX: M06.00 Rheumatoid arthritis without rheumatoid factor, unspecified site (principal); M79.7 Fibromyalgia; M15.9 Polyosteoarthritis, unspecified; G25.81 Restless legs syndrome; E78.5 Hyperlipidemia, unspecified; M47.897 Other spondylosis, lumbosacral region; K21.0 Gastro-esophageal reflux disease with esophagitis; F32.89 Other specified depressive episodes; Z79.899 Other long term (current) drug therapy
CPT/HCPCS: 36415; 80053; 85025

== ENCOUNTER → 2019-07-17 10:52 | Outpatient (CLI) | payer MEDICARE, BC, SELFPAY ==
[2019-04-05 13:31] VITALS: BMI 36.9
[2019-07-17 11:58] VITALS: BMI 36.9
[2019-07-17 12:31] VITALS: BP 123/86; PULSE 80; RESP 16; TEMP 36.7
[2019-07-17 13:31] VITALS: BP 154/77; PULSE 86; RESP 16; TEMP 36.4
[2019-07-17 14:45] VITALS: BP 150/78; PULSE 84; RESP 16; TEMP 36.7
[2019-07-17 15:10] VITALS: BP 148/78; PULSE 80; RESP 16; TEMP 36.8; O2SAT 95
== END ==
PROVIDERS: Family Provider Internal Medicine; PCP Internal Medicine; Referring Provider Internal Medicine; Visit Provider Internal Medicine
DX: D64.9 Anemia, unspecified (principal)
CPT/HCPCS: 36415; 36430; 86850; 86900; 86901; 86920; 86922; J7040; P9040; A4216

== ENCOUNTER 2019-07-29 13:54 | Emergency (ER) | payer MEDICARE, BC, SELFPAY ==
[2019-07-17 11:58] VITALS: BMI 36.9
[2019-07-29 13:55] VITALS: BP 124/93; PULSE 74; RESP 18; TEMP 36.6; O2SAT 96; BMI 38.6
--- NOTE | 2019-07-29 14:21 | VDLE_ITS ---
Reason For Study: Swelling Procedure LEFT Exam performed portable in ED. GSV is normal. A preliminary report was called and/or faxed CFV is compressible, spontaneous, phasic, to [place]. competent, and demonstrates normal augmentation. FV is compressible, spontaneous, phasic, competent and demonstrates normal augmentation. POP V is compressible, spontaneous, phasic, competent and demonstrates normal augmentation. T/P Trunk is compressible. PTV is compressible. LT PerV is compressible. Interpretation Summary There is no evidence of left lower extremity deep vein thrombosis. Left great saphenous vein appears patent and compressible segmentally. Ordering Physician: Solitario Salvador Referring Physician: Candice Amado M.D. Performed By: Kymberly Torres RVT
--- NOTE | 2019-07-29 14:52 | ED.VIS.GEN ---
History of Present Illness Chief Complaint: Lower Extremity Injury Detail of Chief Complaint: Atraumatic left leg pain and swelling Informant: Patient Onset: Days Context: Sudden Onset Timing: Continuous Quality: Pain Location: Left leg Current Severity: Mild Maximum Severity: Moderate Worsened by: Movement and palpation Relieved by: Nothing Associated Symptoms: History of DVT Narrative: Patient is an elderly woman who presents with atraumatic left leg pain and swelling that started several days ago. Patient concerned she has a clot. She denies chest pain or shortness of breath. Denies pleuritic pain. Denies hemoptysis. She is not on anticoagulant. There is no history of recent travel immobilizations surgery hospitalization. Patient denies paresthesia, anesthesia or motor weakness. Patient has no other complaints. Prior similar symptoms: Yes - DVT Recent Illness/Hospitalization: No - Past Medical History (1) History of DVT in adulthood Status: Acute (2) Anemia Status: Acute (3) Hiatal hernia Status: Chronic (4) Rheumatoid arthritis Status: Chronic (5) Spondylosis of lumbar region without myelopathy or radiculopathy Status: Chronic Past Medical History - Allergies and Home Meds Allergies/Adverse Reactions: Allergies No Known Allergies Allergy (Verified 07/29/19 13:57) Primary Care Physician: Candice Amado DO [Primary Care Provider] - Prior records reviewed: Yes Surgical History: appendectomy, hysterectomy, tonsillectomy, - - back surgery, carpal tunnel tarsal tunnel Lives: Alone Smoking Status: Never smoker Alcohol: None Drugs: None - Family History Maternal Family History: Reports: Heart Disease Paternal Family History: Reports: No pertinent history Review of Systems General: Denies: Chills, Fever, Malaise, Sweats, Weight loss Eyes: Denies: Visual changes - bilaterally, Blurred Vision - bilaterally ENT: Denies: Bilateral ear pain, Rhinorrhea, Sore throat Cardiovascular: Denies: Chest pain, Palpitations, Heart racing Respiratory: Denies: Dyspnea, Cough, Sputum, Dyspnea on exertion, Orthopnea, Paroxysmal nocturnal dyspnea Gastrointestinal: Denies: Abdominal pain, Nausea, Vomiting, Diarrhea, Melena, Hematochezia Genitourinary: Denies: Dysuria, Hematuria, Frequency Musculoskeletal: Reports: Swelling, Extremity Pain. Denies: Myalgias, Arthralgias, Neck pain, Back pain Skin: Denies: Rash, Wounds Neurological: Denies: Weakness, Parasthesia, Numbness Endocrine: Denies: Polyuria, Polydipsia Hematologic: Denies: Easy bruising, Easy bleeding Physical Exam Vital Signs/Narrative: Vital Signs Temp Pulse Resp BP Pulse Ox 07/29/19 13:55 98 F 74 18 124/93 H 96 Inital Vital Signs reviewed: Yes General: Well nourished, Well developed, No Acute Distress Head: Normocephalic, Atraumatic Eyes: Perrl, EOMI. Negative for: Pale conjunctiva, Scleral icterus ENT: Moist mucous membranes, No rhinorrhea, TM's clear Neck: Supple, Nontender, No lymphadenopathy, No JVD Cardiovascular: Regular rate, Regular rhythm, No murmurs, Normal S1, Normal S2 Respiratory: No distress, CTA bilaterally, Chest nontender Abdomen: Soft, Nontender, Nondistended, Normal bowel sounds, No masses Back: Nontender, Normal Inspection Extremities: Tenderness, Edema, Calf Tenderness. Negative for: Nontender, No edema Skin: Normal color, No rash Neurological: Alert, Oriented x3, Cranial nerves II-XII grossly intact, Normal Strength, Normal Sensation Psychological: Normal affect, Normal Mood Diagnostic/Tx/Re-eval - Medical Decision Making Presents with unilateral swelling of her left lower leg distal to the knee. There is history of DVT/PE. She has no other complaints. Venous duplex study was obtained to evaluate for DVT. Not invasive was negative. Patient be discharged home to follow-up with her primary care physician. ED Disposition - Plan for ED Patient: Disposition: Home or Assisted Living Diagnosis: Lymphedema of left leg Instructions: Lymphedema Referrals: Candice Amado DO [Primary Care Provider] - 3-5 Days if not improving
== END 2019-07-29 15:11 | disposition home or self-care (01) ==
PROVIDERS: Emergency Provider Emergency Medicine; Family Provider Internal Medicine; PCP Internal Medicine
DX: I89.0 Lymphedema, not elsewhere classified (principal); M06.9 Rheumatoid arthritis, unspecified; Z86.718 Personal history of other venous thrombosis and embolism; Z79.899 Other long term (current) drug therapy
CPT/HCPCS: 93971; 99282

== ENCOUNTER 2019-10-19 09:21 | Inpatient (IN) | payer MEDICARE, BC, SELFPAY ==
[2019-10-19] VITALS (29 sets, daily range): BP systolic 117–165; BP diastolic 53–99; PULSE 63–122; RESP 13–25; TEMP 36.1–38.9; O2SAT 93–99; BMI 37.1; BMI 36.9
--- NOTE | 2019-10-19 09:30 | EKG12_ITS ---
Test Reason : Blood Pressure : / mmHG Vent. Rate : 114 BPM Atrial Rate : 114 BPM P-R Int : 190 ms QRS Dur : 076 ms QT Int : 316 ms P-R-T Axes : 022 -45 035 degrees QTc Int : 435 ms Sinus tachycardia Left axis deviation Inferior infarct , age undetermined Anterolateral infarct . age undetermined Abnormal ECG Confirmed by YECENIA HECK ([id number]), rewrite editor NASREEN BRODY ([id number]) on 10/24/2019 9:18:46 AM Referred By: AP Confirmed By:YECENIA HECK
--- NOTE | 2019-10-19 09:31 | CT_ITS ---
STUDY: CT ABDOMEN AND PELVIS WITHOUT CONTRAST REASON FOR EXAM: Female, 84 years old. N/V/D X 1 WK, COUGH, SOB,FEVER, GERD, SURG-ULI/BSO, GB, APPY, RT KNEE, HERNIA REPAIR, 2 BACK SURGERIES RADIATION DOSAGE (If Supplied By Facility): CTDIvol = ( 28.71 ) mGy, DLP = ( 1219.12 ) mGycm TECHNIQUE: Transaxial images were obtained from the dome of the diaphragm to the symphysis pubis without oral contrast, and without intravenous contrast. Sagittal and coronal images were reconstructed. Individualized dose optimization techniques were used for this CT. COMPARISON: September 20, 2016 FINDINGS: Previous noted right middle lobe nodular density has enlarged measuring 1.5 cm. Increasing interstitial densities/fibrotic changes at the lung bases. There is a peripheral pleural-based 8 mm left lower lobe nodular density laterally. The visualized portions of the heart are within normal limits. Normal liver. Normal gallbladder and extrahepatic biliary system. Normal spleen. Normal pancreas. Normal bilateral adrenal glands. Normal right kidney. Normal left kidney. Hiatal hernia. Normal small intestine. Diverticulosis of the colon. The appendix is not visualized. Calcified abdominal aorta. Normal inferior vena cava. Normal retroperitoneum. Normal urinary bladder. Normal abdominal wall. Vertebral changes. Surgical fusion of the lower lumbar segments. Grade 1 spondylolisthesis at L5-S1. CT/Abdomen/Pelvis without Cont IMPRESSION: Hiatal hernia. Colonic diverticulosis. Nodular densities in the lung bases as noted. Increasing interstitial prominence/fibrosis. Electronically Signed: Moncho Jimenez DO at 12:01 EDT Tel [phone], Service support ,
--- NOTE | 2019-10-19 09:53 | ED.DCSUM_ITS ---
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 Pain Onset: Days - 5 days Context: Gradual Onset Timing: Continuous Quality: Sharp Location: Diffuse Current Severity: Severe Maximum Severity: Severe Worsened by: Food, Movement Relieved by: Remaining Still - Nausea/Vomiting/Emesis GI Symptom: Nausea, Vomiting Onset: Days - 5 days Quality: Nonbilious Severity: Mild Episodes: 2 - Diarrhea/Melena/Hematochezia GI Symptom: Diarrhea Onset: Days - 5 days Stool Quality: Loose, Watery Severity: Moderate Episodes: 5 Associated Symptoms: Negative for: Dysuria, Frequency, Hematuria, Urgency Narrative: 84-year-old female presents to the emergency department by squad from home with abdominal pain, nausea vomiting and diarrhea with associated cough. Patient is an extremely poor historian. She has had 5 days of progressively worsening abdominal pain with nausea vomiting and diarrhea. She denies hematemesis coffee-ground emesis melena or hematochezia or chest pain. She does have shortness of breath with her cough after a coughing episode but she is not short of breath at rest. No hemoptysis. No recent travel or exposure to anyone who is tested positive for the coronavirus. No recent travel no recent antibiotic use or hospital admissions. Prior similar symptoms: No Recent Illness/Hospitalization: No <MirnalorenNnamdi - Last Filed: 10/19/19 12:43> Chief Complaint: Cough Past Medical History <Jossie Zheng - Last Filed: 10/19/19 10:48> Prior records reviewed: Yes Past Medical History: - - Rheumatoid arthritis, chronic anemia, migraines, asthma Surgical History: appendectomy, hysterectomy, tonsillectomy, - - back surgery, carpal tunnel tarsal tunnel Lives: With Family Smoking Status: Never smoker Alcohol: None Drugs: None - Family History Maternal Family History: Reports: Heart Disease Paternal Family History: Reports: No pertinent history <Nnamdi Sood - Last Filed: 10/19/19 12:43> - Allergies and Home Meds Allergies/Adverse Reactions: Allergies No Known Allergies Allergy (Verified 10/19/19 09:21) Primary Care Physician: Candice Amado DO [Primary Care Provider] - Review of Systems All systems negative except as indicated General: Reports: Chills, Fever, Malaise Eyes: Denies: Visual changes - bilaterally, Blurred Vision - bilaterally, Diplopia ENT: Reports: Rhinorrhea. Denies: Bilateral ear pain, Sore throat Cardiovascular: Denies: Chest pain, Palpitations, Heart racing Respiratory: Reports: Dyspnea, Cough, Sputum, Dyspnea on exertion. Denies: Orthopnea, Paroxysmal nocturnal dyspnea Gastrointestinal: Reports: Abdominal pain, Nausea, Vomiting, Diarrhea. Denies: Constipation, Melena, Hematochezia Genitourinary: Denies: Dysuria, Hematuria, Frequency Musculoskeletal: Denies: Myalgias, Arthralgias, Swelling, Extremity Pain Skin: Denies: Rash, Abscess, Abrasions, Wounds Neurological: Denies: Headache, Weakness, Parasthesia <Nnamdi Sood - Last Filed: 10/19/19 12:43> Physical Exam Vital Signs/Narrative: Vital Signs Temp Pulse Resp BP Pulse Ox 10/19/19 10:15 102.0 F H 121 H 19 H 124/99 H 94 10/19/19 09:54 110 H 21 H 126/61 H 94 10/19/19 09:30 102 F H 115 H 16 126/61 H 96 10/19/19 09:27 102.0 F H 122 H 25 H 144/88 H 95 <Jossie Zheng - Last Filed: 10/19/19 10:48> Vital Signs/Narrative: Vital Signs Temp Pulse Resp BP Pulse Ox 10/19/19 09:27 102.0 F H 122 H 25 H 144/88 H 95 Inital Vital Signs reviewed: Yes General: Well nourished, Well developed, No Acute Distress Head: Normocephalic, Atraumatic Eyes: Perrl, EOMI ENT: Moist mucous membranes, Nasal congestion Neck: Supple, Nontender, No lymphadenopathy, No JVD Cardiovascular: Tachycardia Respiratory: No distress, Chest nontender, Diminished Abdomen: Soft, Nondistended, Normal bowel sounds, Tender Back: Nontender, Normal Inspection Extremities: Nontender, No edema Skin: Normal color, No rash Neurological: Alert, Oriented x3 Psychological: Normal affect, Normal Mood <Nnamdi Sood - Last Filed: 10/19/19 12:43> Diagnostic/Tx/Re-eval - Medical Decision Making Patient was seen with Phyllis agree with history and physical as above, patient presents primarily complaining of abdominal pain that is diffuse she is had it for most a week she is also a slight cough she presents with a fever, she has no exposures to coronavirus per the screening tool, we are in the midst of coronavirus national emergency, on exam temperature 102 heart rate about 120 she has a slight cough her airways intact speaking full sentences the lungs sound clear heart tones unremarkable the abdomen there is vague diffuse discomfort around guarding organomegaly she is moving all 4 extremities at this time ED screen evaluation will be pursued see the results in the chart <Jossie Zheng - Last Filed: 10/19/19 10:48> Chest X-Ray - ED: 1 View, Read by ED Physician, Read by Radiologist, Right Infiltrate CT: Abdomen and Pelvis - Rhythm Strip Rhythm Strip: Sinus Tach Rate: 122 Ectopy: None - EKG Initial EKG Interpretation: No Acute Injury Pattern, Sinus Tachycardia Prior: Unchanged - Medical Decision Making On arrival patient was tachycardic with a fever meeting sepsis criteria therefore this was pursued with sepsis work-up. She was given the appropriate IV fluids. Preemptively started vancomycin and Zosyn. She was given Tylenol. Laboratory work-up is remarkable for a white blood cell count of 20. Creatinine is 2. Lactic acid 3.3. Chest x-ray shows a right upper lobe pneumonia. CT scan abdomen and pelvis was obtained without contrast secondary to the patient's GFR. It shows hiatal hernia with colonic diverticulosis and nodular densities in the lung bases with increased interstitial fibrosis. Patient remains with a stable blood pressure and is hemodynamically stable she is currently on nasal cannula. Lactic acid will be repeated after IV fluids, the appropriate amount of time was passed. She will require ICU as she meets severe sepsis criteria. I spoke with the hospitalist who agreed to admit to the ICU. Hospitalist requested patient obtain a CT scan of the chest. Will be taken upstairs, hospitalist will check results Impressions Abdomen/Pelvis CT 10/19/19 09:31 IMPRESSION: Hiatal hernia. Colonic diverticulosis. Nodular densities in the lung bases as noted. Increasing interstitial prominence/fibrosis. Electronically Signed: Moncho Jimenez DO at 12:01 EDT Tel [phone], Service support , Chest X-Ray 10/19/19 10:40 IMPRESSION: Cardiomegaly. Right upper lobe infiltrate. Probable hiatal hernia. Electronically Signed: Moncho Jimenez DO at 10:59 EDT Tel [phone], Service support , 10/19/19 09:31 Abdomen/Pelvis without Cont [CT] Stat 10/19/19 10:40 Chest 1 View (Portable) [RAD] Stat 10/19/19 12:24 CT Chest [Chest without Contrast] [CT] Stat 10/19/19 09:47 Mucosa - Nose Influenza Types A,B Direct FA (WILLIE) - Final Laboratory Results 10/19/19 10/19/19 10/19/19 09:37 09:37 09:37 WBC 20.0 H RBC 3.91 L Hgb 10.9 L Hct 35.5 L MCV 90.8 MCH 27.9 MCHC 30.7 L RDW Std Deviation 56.8 H RDW Coeff of Laxmi 17.2 H Plt Count 201 MPV 10.0 Immature Gran % (Auto) 0.800 Neut % (Auto) 92.4 H Lymph % (Auto) 3.0 L [place] % (Auto) 3.7 Eos % (Auto) 0.0 Baso % (Auto) 0.1 Absolute Neuts (auto) 18.5 H Absolute Lymphs (auto) 0.60 L Nucleated RBC % 0 Differential Comment SCANNED PT 14.4 INR 1.1 APTT 24.3 Sodium 138 Potassium 4.3 Chloride 108 H Carbon Dioxide 18.0 L Anion Gap 12 BUN 20 H Creatinine 2.06 H Estim Creat Clear Calc 14.86 Est GFR (MDRD) Af Amer 30 L Est GFR (MDRD) Non-Af 24 L BUN/Creatinine Ratio 9.7 L Glucose 119 H Lactic Acid Calcium 9.1 Total Bilirubin 0.90 AST 60 H ALT 46 Alkaline Phosphatase 108 Total Protein 6.7 Albumin 3.0 L Globulin 3.7 Albumin/Globulin Ratio 0.8 L Urine Color Urine Clarity Urine pH Ur Specific [place] Urine Protein Urine Glucose (UA) Urine Ketones Urine Occult Blood Urine Nitrite Urine Bilirubin Urine Urobilinogen Ur Leukocyte Esterase Urine RBC Urine WBC Ur Squamous Epith Cells Amorphous Sediment Urine Bacteria Urine Mucus 10/19/19 10/19/19 09:42 11:30 WBC RBC Hgb Hct MCV MCH MCHC RDW Std Deviation RDW Coeff of Laxmi Plt Count MPV Immature Gran % (Auto) Neut % (Auto) Lymph % (Auto) [place] % (Auto) Eos % (Auto) Baso % (Auto) Absolute Neuts (auto) Absolute Lymphs (auto) Nucleated RBC % Differential Comment PT INR APTT Sodium Potassium Chloride Carbon Dioxide Anion Gap BUN Creatinine Estim Creat Clear Calc Est GFR (MDRD) Af Amer Est GFR (MDRD) Non-Af BUN/Creatinine Ratio Glucose Lactic Acid 3.3 H* Calcium Total Bilirubin AST ALT Alkaline Phosphatase Total Protein Albumin Globulin Albumin/Globulin Ratio Urine Color Yellow Urine Clarity Cloudy Urine pH 5.0 Ur Specific [place] 1.025 Urine Protein 100 H Urine Glucose (UA) Normal Urine Ketones 5 H Urine Occult Blood 10 H Urine Nitrite Negative Urine Bilirubin 1 H Urine Urobilinogen 4 H Ur Leukocyte Esterase Negative Urine RBC 0 SEEN Urine WBC 0-5 SEEN Ur Squamous Epith Cells 0-5 SEEN Amorphous Sediment 2+ Urine Bacteria 2+ Urine Mucus 0 SEEN <Nnamdi Sood - Last Filed: 10/19/19 12:43> Critical care time (excluding procedures): 30-74 minutes <Nnamdi Sood - Last Filed: 10/19/19 12:43> ED Disposition <Jossie Zheng - Last Filed: 10/19/19 10:48> <Nnamdi Sood - Last Filed: 10/19/19 12:43> - Plan for ED Patient: Disposition: Acute Care Hospital [facility] Diagnosis: Severe sepsis, Community acquired pneumonia, AGUSTIN (acute kidney injury), Abdominal pain Referrals: Candice Amado DO [Primary Care Provider] -
[2019-10-19 09:56] LABS: Absolute Neutrophil Count 18.5 X10^3/uL (2.0-7.7); Basophil# 0.02 X10^3/uL; Basophil% 0.1 % (0-1); Hematocrit 35.5 % (37-47); Hemoglobin 10.9 g/dL (12.0-15.0); Mean Corp Hgb Conc 30.7 g/dL (32-36); Mean Corpuscular Hgb 27.9 pg (27.0-32.0); Mean Corpuscular Volume 90.8 fL (81-99); Monocyte# 0.75 X10^3/uL; Monocyte% 3.7 % (0-10); NRBC Flagged by Analyzer 0 % (0-5); Neutrophil % 92.4 % (47-70); POSITIVE DIFFERENTIAL YES; POSITIVE MORPHOLOGY YES; Platelet Count 201 K/mm3 (150-450); RBC Distribution Width CV 17.2 % (11.6-14.6); RBC Distribution Width SD 56.8 fl (35.1-43.9); Red Blood Count 3.91 M/mm3 (4.2-5.4)
[2019-10-19 10:01] LABS: Differential Indicated SCAN CRITERIA MET
[2019-10-19 10:03] LABS: ALB/GLOB Ratio 0.8 RATIO (0.9-2.4); AST(SGOT) 60 U/L (15-37); Alanine Aminotransfer ALT/SGPT 46 U/L (13-56); Alkaline Phosphatase 108 U/L (45-117); Anion Gap 12 (5-15); BUN 20 mg/dL (7-18); BUN/Creat Ratio 9.7 RATIO (10-20); Calcium,Total 9.1 mg/dL (8.5-10.1); Chloride 108 mmol/L (98-107); Creatinine, Serum 2.06 mg/dL (0.55-1.02); EST Glomerular Filtration Rate 24 mL/min (>60); Est Glom Filt Rate - Afr Amer 30 mL/min (>60); Estimated Creatinine Clearance 14.86 ml/min; Globulin 3.7 g/dL (2.2-4.2); Glucose 119 mg/dL (74-106); Potassium 4.3 mmol/L (3.5-5.1); Protein, Total 6.7 g/dL (6.4-8.2); Sodium Level 138 mmol/L (136-145)
[2019-10-19 10:24] LABS: International Normalized Ratio 1.1; Prothrombin Time (Protime)PT. 14.4 SECONDS (11.7-14.9)
[2019-10-19 10:25] LABS: Partial Thromboplast Time 24.3 Seconds (24.1-36.2)
[2019-10-19] MEDS: Ondansetron 4 MG/2 ML Vial IV (10:30)
[2019-10-19] MEDS: Acetaminophen 500 MG Tablet 1000 MG PO (10:30)
[2019-10-19] MEDS: Morphine 4 MG/ML Syringe IV (10:30)
[2019-10-19 10:31] LABS: Differential Comment SCANNED
[2019-10-19 10:38] LABS: Lactic Acid 3.3 mmol/L (0.4-1.9)
[2019-10-19] MEDS: 0.9% Normal Saline 1,000 ML 999 ML IV ×2 (10:39→11:34)
--- NOTE | 2019-10-19 10:40 | RAD_ITS ---
STUDY: X-RAY CHEST REASON FOR EXAM: Female, 84 years old. PT TO ED VIA EMS. PATIENT COMPLAINS OF N/V/D X1 WEEK WITH ABDOMINAL PAIN. SHE ALSO HAS HAD A COUGH WITH SHORTNESS OF BREATH AND A TEMPERATURE. TECHNIQUE: Frontal view COMPARISON: January 24, 2018 FINDINGS: The lungs are not fully expanded. Focal right upper lobe infiltrate. Real megaly. Normal mediastinum and georgi. Normal visualized pulmonary arteries. Calcified visualized aortic arch and descending thoracic aorta. Degenerative changes of the thoracic spine. Normal visualized ribs, clavicles, and shoulders. Probable hiatal hernia. RAD/Chest 1 View (Portable) IMPRESSION: Cardiomegaly. Right upper lobe infiltrate. Probable hiatal hernia. Electronically Signed: Moncho Jimenez DO at 10:59 EDT Tel [phone], Service support ,
[2019-10-19 11:43] LABS: Mucous, Urine 0 SEEN /hpf (<or=2+); Red Blood Cells-Urine 0 SEEN /hpf (0-5)
[2019-10-19 12:09] LABS: Color, Urine Yellow (Yellow); Glucose, Dipstick Normal (Normal); Ketone-Dipstick 5 mg/dl (Negative); Leukocyte Esterase-Dipstick Negative /ul (Negative); Nitrite-Dipstick Negative (Negative); Occult Blood-Urine 10 /ul (Negative); Protein-Dipstick 100 mg/dl (Negative); Specific Gravity, Urine 1.025 (1.002-1.030); Urine Clarity Cloudy (Clear); Urine Urobilinogen 4 mg/dl (Normal)
[2019-10-19 12:15] LABS: Urine Bilirubin Dipstick 1 mg/dL (Negative)
[2019-10-19 12:20] LABS: Amorphous Sediment 2+; Bacteria 2+ /hpf (None Seen); Squamous Epithelial Cells - UA 0-5 SEEN /hpf (5-10); White Blood Cells 0-5 SEEN /hpf (0-5)
--- NOTE | 2019-10-19 12:24 | CT_ITS ---
STUDY: CT CHEST WITHOUT CONTRAST REASON FOR EXAM: Female, 84 years old. DYSPNEA, N/V/D X 1 WK, COUGH, SOB,FEVER RADIATION DOSAGE (If Supplied By Facility): CTDIvol = ( 19.91 ) mGy, DLP = ( 621.88 ) mGycm TECHNIQUE: Transaxial imaging was performed without the administration of intravenous contrast material. Multiplanar coronal and sagittal images were reformatted. Individualized dose optimization techniques were used for this CT. COMPARISON: Chest CT 03/12/2018 FINDINGS: Scattered subpleural reticulation/fibrosis and multiple pulmonary lobes, increased since conspicuity since prior CTA chest. Airspace consolidation with air bronchograms involving the posterior right upper lobe and lingula are new since prior CTA chest. No cavitating process. There is moderate traction bronchiectasis. No endobronchial lesions. 1.2 cm nodule in the medial right middle lobe on image 73 has increased in size since the prior CTA chest when it measured approximately 0.8 cm (measured 0.7 cm on 03/22/2017). There is no demonstrated pleural abnormality. Normal heart and pericardium. There are multiple small lymph nodes within the mediastinum, which are normal in size and morphology most compatible with reactive lymph hyperplasia. Normal hilar regions. Normal unenhanced pulmonary arteries. Normal aorta arch and descending thoracic aorta. Normal osseous structures. There is a moderate size hiatal hernia. CT/Chest without Contrast IMPRESSION: 1. Right upper lobe and lingular airspace disease suggesting pneumonia. 2. Increased size of nodule in the right middle lobe currently measuring 1.2 cm (previous measurement 0.8 cm). NEOPLASM SHOULD BE CONSIDERED. PET scan and/or biopsy suggested. 3. Mildly worse pulmonary fibrosis. Electronically Signed: Dennis Razo MD ([place]) at 13:40 EDT , Service support ,
--- NOTE | 2019-10-19 12:56 | NURSING ---
ICU 2, [facility] SEVERE SEPSIS
--- NOTE | 2019-10-19 13:37 | HP.PCM_ITS ---
History of Present Illness Date of Admission: 10/19/19 Chief Complaint: cough, abdominal pain, diarrhea The patient is a 84 year old F with an extensive past medical history as outlined. She was admitted through the ED on 10/19/2019 with a complaint of abdominal pain, diarrhea and a cough which was nonproductive. Patient states symptoms have been going on for a few days. She also had associated shortness of breath which had gradually worsened. She denied any fever or chills and denied any palpitations. She denied any urinary symptoms such as frequency or burning with urination or urgency. She states she is never had such symptoms before. She denies any recent travel overseas and denies coming to anybody who has ago diagnosis of coronavirus. On admission in the ED, temperature was 101.5 Fahrenheit with blood pressure of 144/53, pulse rate of 110 and respiratory rate of 23. She was saturating at 93% on room air. Chemistry showed bicarb of 18 with chloride of 108 and bicarb of 18. Creatinine was 2.06. Lactic acid was 3.3. Initial troponin was not done. CBC showed WBC of 20 with hemoglobin of 10.9 and platelets of 201. Chest x-ray done showed cardiomegaly with right upper lobe infiltrate and probable hiatal hernia. CT of the abdomen and pelvis showed hiatal hernia with colonic diverticulosis and nodular densities in the lung bases with increasing interstitial prominence and fibrosis. She is been admitted to be managed for severe sepsis due to community-acquired pneumonia. U A was also positive for 2+ bacteria. He is also been managed therefore for sepsis due to UTI. [] Past Medical History Past Medical History (Chronic Problems): Chronic Problems (Last Updated 03/15/19 @ 17:[address] Eris Jimenez MD) Spondylosis of lumbar region without myelopathy or radiculopathy (Chronic) Rheumatoid arthritis (Chronic) Migraine (Chronic) Asthma (Chronic) Hiatal hernia (Chronic) Medical History: Medical History (Last Updated 03/15/19 @ 17:[address] 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 Allergies No Known Allergies Allergy (Verified 10/19/19 09:21) Home Medications: Ambulatory Orders Medication Instructions Recorded Diphenoxylate HCl/Atropine 2.5 mg PO TID PRN PRN 02/16/14 [Lomotil 2.5-0.025 mg Tablet] Atenolol [Tenormin (beta tyler)] 25 mg PO BID 06/09/15 Hydroxychloroquine [Plaquenil] 200 mg PO BID 06/09/15 Ropinirole HCl [Requip] 0.5 mg PO QHS 06/09/15 Sumatriptan Succinate [Imitrex] 100 mg PO .X1 PRN MDD MIGRAINE 06/09/15 Gabapentin [Neurontin] 100 mg PO BID 09/20/16 Prednisone 10 mg PO PRN PRN 04/19/17 Multivitamins,Therapeutic 1 tablet PO DAILY 01/29/18 [Multivitamin] Hydrocodone/Acetaminophen [Drake 1 each PO BID PRN PRN 03/09/18 5-325 Tablet] Folic Acid 400 mg PO DAILY@0800 07/21/18 Furosemide [Lasix] 20 mg PO DAILY PRN PRN 07/21/18 Doxylamine Succinate [Unisom Sleep 25 mg PO QHS 10/19/19 Aid] Ferrous Sulfate [Iron] 325 mg PO DAILY 10/19/19 Potassium 99 mg PO DAILY 10/19/19 Solifenacin Succinate [Vesicare] 10 mg PO DAILY 10/19/19 Surgical History: appendectomy, hysterectomy, tonsillectomy, - - back surgery, carpal tunnel tarsal tunnel Psychiatric History: No pertinent psych hx BAKER BENCH History: No pertinent BAKER BENCH history Lives: With Family Smoking Status: Never smoker Alcohol: None Drugs: None - *Family History Maternal History Items: Heart Disease Paternal History Items: No pertinent history Review of Systems Constitutional: Reports: Chills, Fever, Malaise, Weakness, Fatigue. Denies: Anorexia Eyes: Denies: Blurred vision HEENT: Denies: Head Aches, Sinus Congestion, Sinus Drainage Cardiovascular: Denies: Chest Pain, Chest Tightness, Edema, Light Headedness, Orthopnea, Palpitations, Paroxysmal Noc. Dyspnea, Syncope Respiratory: Reports: Cough, Shortness of Breath, Shortness of breath at rest, Shortness of breath upon exertion, Wheezing. Denies: Pleuritic Pain, Sputum production Gastrointestinal: Reports: Diarrhea, Nausea, Vomiting. Denies: Abdominal Pain Genitourinary: Denies: Dysuria Musculoskeletal: Denies: Joint Pain, Joint Tenderness Skin: Denies: Rash, Wounds Neurological: Denies: Numbness, Tingling, Focal weakness Psychiatric: Denies: Anxiety, Depression, Homicidal Ideations, Suicidal Ideations Hematologic/ Lymphatic: Denies: Easy Bruising, Easy Bleeding VTE Information - Inpt Only VTE Present on Admission: No VTE Pharm Prophylaxis ordered?: Yes Patient Problems: Active and Suspected Problems (Last Updated 03/15/19 @ 17:[address] Eris Jimenez MD) Severe sepsis (Acute) Community acquired pneumonia (Acute) AGUSTIN (acute kidney injury) (Acute) Abdominal pain (Acute) - Physical Exam Vitals/I&O's: Vital Signs Temp Pulse Resp BP Pulse Ox 98.5 F 95 20 H 145/70 H 97 10/19/19 13:20 10/19/19 13:20 10/19/19 13:20 10/19/19 13:20 10/19/19 13:20 Oxygen Delivery Method Room Air Weight: 190 lb 4.143 oz Body Mass Index (BMI) 37.1 Intake and Output for Last 24 Hours 10/17/19 10/18/19 10/19/19 23:59 23:59 23:59 Intake Total 2375 / 2375 Balance 2375 / 2375 General: Alert, Oriented x3, Cooperative, Lethargic HEENT: Atraumatic, PERRLA, EOMI, Normocephalic Oral: Dry Mucosa Neck: Supple, No JVD, Negative Carotid Bruits Lungs: - - wheezing in mid and lower lung de leon bilaterally, with occasional coarse crackles. on room air. Cardiovascular: Regular rate, Regular Rhythm, Normal S1, Normal S2, No murmurs Abdomen: Bowel Sounds Present, Soft, Non Tender, Non-Distended, No Hepato-splenomegaly Extremities: No clubbing, No cyanosis, No edema, Capillary Refill Less than 3 Seconds Skin: No rashes, No breakdown Musculoskeletal: No Tenderness to Palpation of Joints or Extremities Lymphatic: No Cervical, Supraclavicular, or Inguinal Adenopathy Neurological: Cranial nerves II-XII grossly intact, Neuro grossly intact, Motor Exam 5/5 strength throughout Psych/Mental Status: Normal Affect, Appropriate, Alert and oriented to time, place, person, mood and affect Microbiology Past 72 Hours 10/19/19 09:32 Mucosa - Nose Respiratory Panel (PCR) - Final Influenzae B 10/19/19 09:47 Mucosa - Nose Influenza Types A,B Direct FA (WILLIE) - Final Laboratory Results 10/19/19 09:37: WBC 20.0 H, RBC 3.91 L, Hgb 10.9 L, Hct 35.5 L, MCV 90.8, MCH 27.9, MCHC 30.7 L, RDW Std Deviation 56.8 H, RDW Coeff of Laxmi 17.2 H, Plt Count 201, MPV 10.0, Immature Gran % (Auto) 0.800, Neut % (Auto) 92.4 H, Lymph % (Auto) 3.0 L, [place] % (Auto) 3.7, Eos % (Auto) 0.0, Baso % (Auto) 0.1, Absolute Neuts (auto) 18.5 H, Absolute Lymphs (auto) 0.60 L, Nucleated RBC % 0, Differential Comment SCANNED 10/19/19 09:37: PT 14.4, INR 1.1, APTT 24.3 10/19/19 09:37: Sodium 138, Potassium 4.3, Chloride 108 H, Carbon Dioxide 18.0 L , Anion Gap 12, BUN 20 H, Creatinine 2.06 H, Estim Creat Clear Calc 14.86, Est GFR (MDRD) Af Amer 30 L, Est GFR (MDRD) Non-Af 24 L, BUN/Creatinine Ratio 9.7 L, Glucose 119 H, Calcium 9.1, Total Bilirubin 0.90, AST 60 H, ALT 46, Alkaline Phosphatase 108, Total Protein 6.7, Albumin 3.0 L, Globulin 3.7, Albumin/Globulin Ratio 0.8 L 10/19/19 09:42: Lactic Acid 3.3 H* 10/19/19 11:30: Urine Color Yellow, Urine Clarity Cloudy, Urine pH 5.0, Ur Specific [place] 1.025, Urine Protein 100 H, Urine Glucose (UA) Normal, Urine Ketones 5 H, Urine Occult Blood 10 H, Urine Nitrite Negative, Urine Bilirubin 1 H, Urine Urobilinogen 4 H, Ur Leukocyte Esterase Negative, Urine RBC 0 SEEN, Urine WBC 0-5 SEEN, Ur Squamous Epith Cells 0-5 SEEN, Amorphous Sediment 2+, Urine Bacteria 2+, Urine Mucus 0 SEEN Diagnostic Data Abdomen/Pelvis CT 10/19/19 09:31 IMPRESSION: Hiatal hernia. Colonic diverticulosis. Nodular densities in the lung bases as noted. Increasing interstitial prominence/fibrosis. Electronically Signed: Moncho Jimenez at 12:01 EDT Tel [phone], Service support , Chest X-Ray 10/19/19 10:40 IMPRESSION: Cardiomegaly. Right upper lobe infiltrate. Probable hiatal hernia. Electronically Signed: Moncho Tony at 10:59 EDT Tel [phone], Service support , Chest CT 10/19/19 12:24 IMPRESSION: 1. Right upper lobe and lingular airspace disease suggesting pneumonia. 2. Increased size of nodule in the right middle lobe currently measuring 1.2 cm (previous measurement 0.8 cm). NEOPLASM SHOULD BE CONSIDERED. PET scan and/or biopsy suggested. 3. Mildly worse pulmonary fibrosis. Electronically Signed: Dennis Razo MD ([place]) at 13:40 EDT , Service support , Assessment/Plan All Active Problems (Last Updated 03/15/19 @ 17:[address] Eris Jimenez MD) Anemia (Acute) Low back pain (Acute) Low back pain (Acute) History of DVT in adulthood (Acute) Severe sepsis (Acute) Community acquired pneumonia (Acute) AGUSTIN (acute kidney injury) (Acute) Abdominal pain (Acute) 84 y/o admitted with a complaint of abdominal pain, nausea, vomiting and diarrhea as well as shortness of breath. 1. Severe sepsis due to influenza B infection, community acquired pneumonia and UTI * Admit to ICU. * On admission, temperature was one 1.5 Fahrenheit with pulse rate of 110 and respiratory rate of 23. WBC is also 20 lactic acid was 3.3. * SIRS criteria is therefore 3/4. SOFA score: ~ 5 * respiratory panel positive for influenza B; UA positive for UTI with 2+ bacteria * CXR showed right upper lobe infiltrate, with cardiomegaly and probable hiatal hernia. * CT abdomen/pelvis showed internal hernia with colonic diverticulosis and nodular densities in the lung bases with increasing interstitial prominence and fibrosis. * Patient already received a bolus of IV fluids 1 L in the ED. We will continue with normal saline at 150 cc/h. * Get blood cultures and urine cultures. Start on IV vancomycin and Zosyn. * Consult critical care. Get 2D echo. * Stat ABG ordered-m pH of 7.37, pO2-79, pCO2 of 30, bicarb of 17.6 * Droplet precautions. Get sputum culture if cough becomes productive. * Breathing treatments with duo nebs as needed. * 2. Community-acquired pneumonia: As under 1. 3. Influenza B infection: As under 1. 4. UTI: As under 1 5. Non-anion gap metabolic acidosis * Creatinine is 2.06 with a baseline of around 1.09. * Bicarb is 18 with anion gap of 12. This is likely due to AGUSTIN and lactic acidosis. * Will trend with hydration. * 5. AGUSTIN on CKD: * Creatinine is 2.06 with baseline of around 1.09. * EGFR is 24. * Been hydrated with IV fluids. If creatinine trends upwards, will get renal ultrasound and check Fe urea * * 6. Lactic acidosis: Likely due to sepsis. Will hydrate and trend. Will repeat per Sepsis protocol. * * 7. Hypertension: On atenolol. Will hold for now and monitor. 8. History of poly-osteoarthritis: On hydroxychloroquine and gabapentin. DVT prophylaxis: lovenox, renally dosed Code status: full code * Patient counseled extensively about different types of CODE STATUS including full code, DNR CCA and DNR CCA. Patient elects to be full code. Total [id number] time 17 minutes. * .Critical care time spent evaluating, coordinating and managing care including total [id number] time: 45 minutes Inpatient E&M: 68596 Init Hosp L3 Procedures: 34214 Critial Care 1st Hr - advanced care planning [id number]
[2019-10-19 13:47] LABS: Reflex Lactate? Y
[2019-10-19 14:06] LABS: Base Excess -8 mmol/L (-2 to +2); Bicarbonate 17.6 mmol/L (22-26); Blood Gas Specimen Type ART; O2 Delivery Device Room Air; PO2 79 mmHG (75-100); SITE R Brachial; SO2 95 % (95-99); Time Given 1358; Total Carbon Dioxide 18 mmol/L; pCO2 30.4 mmHg (35-45); pH 7.37 (7.35-7.45)
[2019-10-19 14:31] LABS: Lactic Acid 0.9 mmol/L (0.4-1.9)
--- NOTE | 2019-10-19 14:46 | PHA.PHARE_ITS ---
Consult Pharmacy has been consulted to manage selected antiobiotic: Vancomycin Type of Consult: New start Suspected Infection: Sepsis, Pneumonia, Other Prior Doses of Antibiotics Received/Current Regimen: Received 1250mg IV x1 in E.R. starting at 11:34 today Labs: Sodium 138 mmol/L (136-145) 10/19/19 09:37 Potassium 4.3 mmol/L (3.5-5.1) 10/19/19 09:37 Chloride 108 mmol/L (98-107) H 10/19/19 09:37 Carbon Dioxide 18.0 mmol/L (21.0-32.0) L 10/19/19 09:37 Anion Gap 12 (5-15) 10/19/19 09:37 BUN 20 mg/dL (7-18) H 10/19/19 09:37 Creatinine 2.06 mg/dL (0.55-1.02) H 10/19/19 09:37 Est GFR (MDRD) Af Amer 30 mL/min (>60) L 10/19/19 09:37 Est GFR (MDRD) Non-Af 24 mL/min (>60) L 10/19/19 09:37 BUN/Creatinine Ratio 9.7 RATIO (10-20) L 10/19/19 09:37 Glucose 119 mg/dL (74-106) H 10/19/19 09:37 Microbiology: Microbiology 10/19/19 09:32 Mucosa - Nose Respiratory Panel (PCR) - Final Influenzae B 10/19/19 09:47 Mucosa - Nose Influenza Types A,B Direct FA (WILLIE) - Final Weight used for dosin.7 kg Estimated Creatinine Clearance: <20 ml/min Goal Trough: 15-20 mcg/mL Pharmacy Plan for Drug Dosing: The patient received an initial dose as noted above in E.R. Per the [facility] vancomycin protocol for dosing in patients with CrCl<20ml/min and not on hemodialysis, we will order a random vancomycin level with the 2nd AM labs on 10/21/19. The next dose of vancomycin will then be determined by that random level. Pharmacy Service will continue to monitor and adjust dosing as required. Follow-Up Labs: Trough Vancomycin - random Labs to be done on [date and time ordered]: 10/21/19 06:00
[2019-10-19] MEDS: 0.9% Normal Saline 1,000 ML 150 ML IV ×2 (14:55→21:20)
[2019-10-19] MEDS: Oseltamivir Phosphate 30 MG Capsule PO (14:56)
[2019-10-19] MEDS: Gabapentin 100 MG Capsule PO (17:20)
[2019-10-19] MEDS: Hydroxychloroquine 200 MG Tablet PO (17:20)
[2019-10-19] MEDS: 0.9% Normal Saline 1,000 ML 75 ML IV (22:02)
[2019-10-20] VITALS (27 sets, daily range): BP systolic 123–184; BP diastolic 63–106; PULSE 69–106; RESP 15–26; TEMP 36.6–36.9; O2SAT 94–100
[2019-10-20 04:13] LABS: Absolute Lymphocyte Count 0.67 X10^3/uL (0.83-4.51); Absolute Neutrophil Count 9.7 X10^3/uL (2.0-7.7); Basophil# 0.01 X10^3/uL; Basophil% 0.1 % (0-1); Eosinophil# 0.01 X10^3/uL; Eosinophils% 0.1 % (0-5); Hematocrit 29.9 % (37-47); Hemoglobin 9.2 g/dL (12.0-15.0); Lymphocyte # 0.67 X10^3/ul (4.0); Lymphocyte % 6.2 % (19-41); Mean Corp Hgb Conc 30.8 g/dL (32-36); Mean Corpuscular Hgb 28.6 pg (27.0-32.0); Mean Corpuscular Volume 92.9 fL (81-99); Mean Platelet Vol. 9.8 fl (6.2-12.0); Monocyte# 0.42 X10^3/uL; Monocyte% 3.9 % (0-10); NRBC Flagged by Analyzer 0 % (0-5); Neutrophil # 9.68 X10^3/uL (2.7-7.7); POSITIVE MORPHOLOGY YES; Platelet Count 145 K/mm3 (150-450); RBC Distribution Width CV 17.2 % (11.6-14.6); RBC Distribution Width SD 58.4 fl (35.1-43.9); Red Blood Count 3.22 M/mm3 (4.2-5.4); White Blood Count 10.9 K/mm3 (4.4-11.0)
[2019-10-20 04:23] LABS: Anion Gap 6 (5-15); BUN 21 mg/dL (7-18); BUN/Creat Ratio 12.9 RATIO (10-20); Calcium,Total 8.2 mg/dL (8.5-10.1); Chloride 119 mmol/L (98-107); Creatinine, Serum 1.63 mg/dL (0.55-1.02); EST Glomerular Filtration Rate 32 mL/min (>60); Est Glom Filt Rate - Afr Amer 39 mL/min (>60); Estimated Creatinine Clearance 18.78 ml/min; Glucose 77 mg/dL (74-106); Potassium 4.2 mmol/L (3.5-5.1); Sodium Level 146 mmol/L (136-145)
[2019-10-20] MEDS: 0.9% Saline Lock 10 ML Syringe IV ×2 (04:24→14:32)
[2019-10-20] MEDS: hydrALAZINE 20 MG/ML Vial 10 MG IV ×2 (04:24→14:32)
[2019-10-20] MEDS: Morphine 2 MG/ML Syringe IV (05:05)
[2019-10-20 05:23] LABS: Differential Indicated SCAN CRITERIA MET
[2019-10-20 05:26] LABS: Differential Comment SCANNED; Reactive Lymphocyte RARE
--- NOTE | 2019-10-20 05:55 | RAD_ITS ---
STUDY: X-RAY CHEST REASON FOR EXAM: Female, 84 years old. DYSPNEA TECHNIQUE: Single AP portable view of the chest. COMPARISON: Chest x-ray yesterday FINDINGS: Stable appearance of cardiomegaly and mild diffuse patchy airspace disease; right greater than left. No consolidation or effusion. Remainder is stable. RAD/Chest 1 View (Portable) IMPRESSION: Stable cardiomegaly and patchy airspace disease Electronically Signed: Stef Mendez DO at 7:53 EDT Tel , Service support ,
--- NOTE | 2019-10-20 06:37 | CON.PCM_ITS ---
Reason for Consult Date of Consultation: 10/20/19 Reason for Consultation: Severe sepsis History of Present Illness: The patient is an 84-year-old female, with a history as outlined below, who presented to the emergency department on October 18 with complaints of abdominal pain, nausea, vomiting and cough. The patient did deny the presence of shortness of breath. She denies a personal history of tobacco dependency or significant secondhand smoke exposure. She does have a history of rheumatoid arthritis and is currently prescribed Plaquenil on an outpatient basis. On presentation to the emergency department, the patient was noted to be febrile, tachycardic and tachypneic. Laboratory evaluation revealed an elevated white blood cell count to 20,000. Chemistry profile was notable for a bicarbonate of 18 and creatinine of 2.06. Lactate was elevated at 3.3. Initial troponin was elevated to 0.205. CT abdomen/pelvis was obtained and revealed multiple bilateral nodular densities within the bases of the lung. A dedicated chest CT was obtained and revealed evidence of subpleural fibrosis, airspace consolidation within the right upper lobe and lingula, and 1.2 cm nodule in the right middle lobe. The patient was provided with supplemental IV fluids and started on broad-spectrum antimicrobials. She was subsequently mated to the medical intensive care unit for further management of her severe sepsis. Past Medical History Past Medical History (Chronic Problems): Chronic Problems (Last Updated 03/15/19 @ 17:[address] Eris Jimenez MD) Spondylosis of lumbar region without myelopathy or radiculopathy (Chronic) Rheumatoid arthritis (Chronic) Migraine (Chronic) Asthma (Chronic) Hiatal hernia (Chronic) Medical History: Medical History (Last Updated 03/15/19 @ 17:[address] 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 Allergies No Known Allergies Allergy (Verified 10/19/19 09:21) Home Medications: Ambulatory Orders Medication Instructions Recorded Diphenoxylate HCl/Atropine 2.5 mg PO TID PRN PRN 02/16/14 [Lomotil 2.5-0.025 mg Tablet] Atenolol [Tenormin (beta tyler)] 25 mg PO BID 06/09/15 Hydroxychloroquine [Plaquenil] 200 mg PO BID 06/09/15 Ropinirole HCl [Requip] 0.5 mg PO QHS 06/09/15 Sumatriptan Succinate [Imitrex] 100 mg PO .X1 PRN MDD MIGRAINE 06/09/15 Gabapentin [Neurontin] 100 mg PO BID 09/20/16 Prednisone 10 mg PO PRN PRN 04/19/17 Multivitamins,Therapeutic 1 tablet PO DAILY 01/29/18 [Multivitamin] Hydrocodone/Acetaminophen [[place] 1 each PO BID PRN PRN 03/09/18 5-325 Tablet] Folic Acid 400 mg PO DAILY@0800 07/21/18 Furosemide [Lasix] 20 mg PO DAILY PRN PRN 07/21/18 Doxylamine Succinate [Unisom Sleep 25 mg PO QHS 10/19/19 Aid] Ferrous Sulfate [Iron] 325 mg PO DAILY 10/19/19 Potassium 99 mg PO DAILY 10/19/19 Solifenacin Succinate [Vesicare] 10 mg PO DAILY 10/19/19 Surgical History: appendectomy, hysterectomy, tonsillectomy, - - back surgery, carpal tunnel tarsal tunnel Psychiatric History: No pertinent psych hx 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 Denies: Shortness of Breath Gastrointestinal: Reports: Abdominal Pain, Nausea Genitourinary: Denies: Dysuria Musculoskeletal: Denies: Joint Pain, Joint Tenderness Skin: Denies: Rash, Wounds Neurological: Denies: Numbness, Tingling, Focal weakness Psychiatric: Denies: Anxiety, Depression, Homicidal Ideations, Suicidal Ideations Hematologic/ Lymphatic: Reports: Anemia Patient Problems: Active and Suspected Problems (Last Updated 03/15/19 @ 17:[address] Eris Jimenez MD) Severe sepsis (Acute) Community acquired pneumonia (Acute) AGUSTIN (acute kidney injury) (Acute) Abdominal pain (Acute) Objective: The patient's most recent lab work, culture data and imaging studies have all been personally reviewed. Respiratory viral panel was positive for influenza B. - Physical Exam Vitals/I&O's: Vital Signs Temp Pulse Resp BP Pulse Ox 98.2 F 87 19 H 168/63 H 98 10/20/19 06:00 10/20/19 06:00 10/20/19 06:00 10/20/19 06:00 10/20/19 06:00 Oxygen Delivery Method Room Air Weight: 195 lb 5.273 oz Body Mass Index (BMI) 36.9 Intake and Output for Last 24 Hours 10/18/19 10/19/19 10/20/19 23:59 23:59 23:59 Intake Total 3935.25 / 3935.25 50 / 50 Output Total 250 / 250 250 / 250 Balance 3685.25 / 3685.25 -200 / -200 General: Alert, Cooperative, No apparent distress HEENT: Atraumatic, PERRLA, Normocephalic Oral: No Gingival or Mucosal Lesions/ Ulcerations Neck: Supple, No Nodes, Trachea Midline Lungs: Rales, Wheezes Cardiovascular: Regular rate, Regular Rhythm, Normal S1, Normal S2, No murmurs Abdomen: Bowel Sounds Present, Soft, Non Tender, Obese Extremities: No clubbing, No cyanosis, No edema Skin: No breakdown Musculoskeletal: No Tenderness to Palpation of Joints or Extremities, No Muscle Wasting Lymphatic: No Cervical, Supraclavicular, or Inguinal Adenopathy Neurological: Neuro grossly intact Psych/Mental Status: Normal Affect, Appropriate Labs (Last 48 Hours) 10/19/19 10/19/19 10/19/19 09:37 09:37 09:37 WBC 20.0 H RBC 3.91 L Hgb 10.9 L Hct 35.5 L MCV 90.8 MCH 27.9 MCHC 30.7 L RDW Std Deviation 56.8 H RDW Coeff of Laxmi 17.2 H Plt Count 201 MPV 10.0 Immature Gran % (Auto) 0.800 Neut % (Auto) 92.4 H Lymph % (Auto) 3.0 L [place] % (Auto) 3.7 Eos % (Auto) 0.0 Baso % (Auto) 0.1 Absolute Neuts (auto) 18.5 H Absolute Lymphs (auto) 0.60 L Nucleated RBC % 0 Differential Comment SCANNED Reactive Lymphocytes PT 14.4 INR 1.1 APTT 24.3 Specimen Type Sample Site pH Bicarbonate Actual POC Total CO2 Base Excess O2 Saturation ABG pCO2 ABG pO2 O2 Delivery Device Blood Gas Notified Whom Blood Gas Notified Time Sodium 138 Potassium 4.3 Chloride 108 H Carbon Dioxide 18.0 L Anion Gap 12 BUN 20 H Creatinine 2.06 H Estim Creat Clear Calc 14.86 Est GFR (MDRD) Af Amer 30 L Est GFR (MDRD) Non-Af 24 L BUN/Creatinine Ratio 9.7 L Glucose 119 H Lactic Acid Calcium 9.1 Total Bilirubin 0.90 AST 60 H ALT 46 Alkaline Phosphatase 108 Troponin I Total Protein 6.7 Albumin 3.0 L Globulin 3.7 Albumin/Globulin Ratio 0.8 L Urine Color Urine Clarity Urine pH Ur Specific [place] Urine Protein Urine Glucose (UA) Urine Ketones Urine Occult Blood Urine Nitrite Urine Bilirubin Urine Urobilinogen Ur Leukocyte Esterase Urine RBC Urine WBC Ur Squamous Epith Cells Amorphous Sediment Urine Bacteria Urine Mucus 10/19/19 10/19/19 10/19/19 09:42 11:30 13:45 WBC RBC Hgb Hct MCV MCH MCHC RDW Std Deviation RDW Coeff of Laxmi Plt Count MPV Immature Gran % (Auto) Neut % (Auto) Lymph % (Auto) [place] % (Auto) Eos % (Auto) Baso % (Auto) Absolute Neuts (auto) Absolute Lymphs (auto) Nucleated RBC % Differential Comment Reactive Lymphocytes PT INR APTT Specimen Type Sample Site pH Bicarbonate Actual POC Total CO2 Base Excess O2 Saturation ABG pCO2 ABG pO2 O2 Delivery Device Blood Gas Notified Whom Blood Gas Notified Time Sodium Potassium Chloride Carbon Dioxide Anion Gap BUN Creatinine Estim Creat Clear Calc Est GFR (MDRD) Af Amer Est GFR (MDRD) Non-Af BUN/Creatinine Ratio Glucose Lactic Acid 3.3 H* 0.9 Calcium Total Bilirubin AST ALT Alkaline Phosphatase Troponin I Total Protein Albumin Globulin Albumin/Globulin Ratio Urine Color Yellow Urine Clarity Cloudy Urine pH 5.0 Ur Specific [place] 1.025 Urine Protein 100 H Urine Glucose (UA) Normal Urine Ketones 5 H Urine Occult Blood 10 H Urine Nitrite Negative Urine Bilirubin 1 H Urine Urobilinogen 4 H Ur Leukocyte Esterase Negative Urine RBC 0 SEEN Urine WBC 0-5 SEEN Ur Squamous Epith Cells 0-5 SEEN Amorphous Sediment 2+ Urine Bacteria 2+ Urine Mucus 0 SEEN 10/19/19 10/19/19 10/19/19 14:00 14:55 17:25 WBC RBC Hgb Hct MCV MCH MCHC RDW Std Deviation RDW Coeff of Laxmi Plt Count MPV Immature Gran % (Auto) Neut % (Auto) Lymph % (Auto) [place] % (Auto) Eos % (Auto) Baso % (Auto) Absolute Neuts (auto) Absolute Lymphs (auto) Nucleated RBC % Differential Comment Reactive Lymphocytes PT INR APTT Specimen Type ART Sample Site R Brachial pH 7.37 Bicarbonate Actual 17.6 L POC Total CO2 18 Base Excess -8 L O2 Saturation 95 ABG pCO2 30.4 L ABG pO2 79 O2 Delivery Device Room Air Blood Gas Notified Whom [facility] Blood Gas Notified Time 1358 Sodium Potassium Chloride Carbon Dioxide Anion Gap BUN Creatinine Estim Creat Clear Calc Est GFR (MDRD) Af Amer Est GFR (MDRD) Non-Af BUN/Creatinine Ratio Glucose Lactic Acid Calcium Total Bilirubin AST ALT Alkaline Phosphatase Troponin I 0.205 H 0.181 H Total Protein Albumin Globulin Albumin/Globulin Ratio Urine Color Urine Clarity Urine pH Ur Specific [place] Urine Protein Urine Glucose (UA) Urine Ketones Urine Occult Blood Urine Nitrite Urine Bilirubin Urine Urobilinogen Ur Leukocyte Esterase Urine RBC Urine WBC Ur Squamous Epith Cells Amorphous Sediment Urine Bacteria Urine Mucus 10/19/19 10/20/19 10/20/19 21:45 03:45 03:45 WBC 10.9 RBC 3.22 L Hgb 9.2 L Hct 29.9 L MCV 92.9 MCH 28.6 MCHC 30.8 L RDW Std Deviation 58.4 H RDW Coeff of Laxmi 17.2 H Plt Count 145 L MPV 9.8 Immature Gran % (Auto) 0.700 Neut % (Auto) 89.0 H Lymph % (Auto) 6.2 L [place] % (Auto) 3.9 Eos % (Auto) 0.1 Baso % (Auto) 0.1 Absolute Neuts (auto) 9.7 H Absolute Lymphs (auto) 0.67 L Nucleated RBC % 0 Differential Comment SCANNED Reactive Lymphocytes RARE PT INR APTT Specimen Type Sample Site pH Bicarbonate Actual POC Total CO2 Base Excess O2 Saturation ABG pCO2 ABG pO2 O2 Delivery Device Blood Gas Notified Whom Blood Gas Notified Time Sodium 146 H Potassium 4.2 Chloride 119 H Carbon Dioxide 21.0 Anion Gap 6 BUN 21 H Creatinine 1.63 H Estim Creat Clear Calc 18.78 Est GFR (MDRD) Af Amer 39 L Est GFR (MDRD) Non-Af 32 L BUN/Creatinine Ratio 12.9 Glucose 77 Lactic Acid Calcium 8.2 L Total Bilirubin AST ALT Alkaline Phosphatase Troponin I 0.111 H Total Protein Albumin Globulin Albumin/Globulin Ratio Urine Color Urine Clarity Urine pH Ur Specific [place] Urine Protein Urine Glucose (UA) Urine Ketones Urine Occult Blood Urine Nitrite Urine Bilirubin Urine Urobilinogen Ur Leukocyte Esterase Urine RBC Urine WBC Ur Squamous Epith Cells Amorphous Sediment Urine Bacteria Urine Mucus Microbiology 10/19/19 09:32 Mucosa - Nose Respiratory Panel (PCR) - Final Influenzae B 10/19/19 09:47 Mucosa - Nose Influenza Types A,B Direct FA (WILLIE) - Final Clinical Impression(s) from Imaging Studies Abdomen/Pelvis CT 10/19/19 09:31 IMPRESSION: Hiatal hernia. Colonic diverticulosis. Nodular densities in the lung bases as noted. Increasing interstitial prominence/fibrosis. Electronically Signed: Moncho Jimenez DO at 12:01 EDT Tel [phone], Service support , Chest X-Ray 10/19/19 10:40 IMPRESSION: Cardiomegaly. Right upper lobe infiltrate. Probable hiatal hernia. Electronically Signed: Moncho Jimenez DO at 10:59 EDT Tel [phone], Service support , Chest CT 10/19/19 12:24 IMPRESSION: 1. Right upper lobe and lingular airspace disease suggesting pneumonia. 2. Increased size of nodule in the right middle lobe currently measuring 1.2 cm (previous measurement 0.8 cm). NEOPLASM SHOULD BE CONSIDERED. PET scan and/or biopsy suggested. 3. Mildly worse pulmonary fibrosis. Electronically Signed: Dennis Razo MD ([place]) at 13:40 EDT , Service support , Current Medications Hydrocodone Bitart/Acetaminophen ([place] 5mg-325mg) 1 tablet PO BID PRN PRN PRN Reason: Pain Score 6-10/10 Albuterol Sulfate (Ventolin Aerosols) 2.5 mg INHALATION Q2H PRN PRN PRN Reason: SOB/Wheezing Diphenoxylate HCl/Atropine (Lomotil) 1 tablet PO TID PRN PRN PRN Reason: Diarrhea Enoxaparin Sodium (Lovenox) 30 mg SC DAILY [facility] Ferrous Sulfate (Ferrous Sulfate) [facility] Folic Acid (Folic Acid) 0.5 mg PO DAILY@0800 [facility] Gabapentin (Neurontin) [facility] Last Admin: 10/19/19 17:20 Dose: 100 mg Documented by: Glucagon () 1 mg IM .X1 PRN PRN Reason: Hypoglycemia Hydralazine HCl (Apresoline Iv) 10 mg IV Q4H PRN PRN PRN Reason: SBP > 160 Last Admin: 10/20/19 04:24 Dose: 10 mg Documented by: Hydroxychloroquine Sulfate (Plaquenil) [facility] Last Admin: 10/19/19 17:20 Dose: 200 mg Documented by: Piperacillin Sod/Tazobactam (Sod 3.375 gm/ Sodium Chloride) 50 mls @ 12.5 mls/hr IV Q12 [facility] Last Infusion: 10/20/19 01:20 Dose: Infused Documented by: Vancomycin IV Pharmacy to Dose (1 ea/ Sodium Chloride) 500 mls @ 250 mls/hr IV X1 PRN; Protocol PRN Reason: Rx to Dose Dextrose (Dextrose 10%-Water) 250 mls @ 999 mls/hr IV .Q16M PRN; Protocol PRN Reason: HYPOGLYCEMIA Sodium Chloride () 250 mls @ 15 mls/hr IV .[id number] PRN PRN Reason: Saline Flush Last Infusion: 10/20/19 01:20 Dose: 15 mls/hr Documented by: Sodium Chloride () 250 mls @ 15 mls/hr IV .[id number] PRN PRN Reason: Additional IVPB Infusion Sodium Chloride () 1,000 mls @ 75 mls/hr IV .[id number] [facility] Last Admin: 10/19/19 22:02 Dose: 75 mls/hr Documented by: Morphine Sulfate () 2 mg IV Q3H PRN PRN PRN Reason: Pain Score 6-10/10 Last Admin: 10/20/19 05:05 Dose: 2 mg Documented by: Multivitamins (Multivitamin) [facility] Ondansetron HCl (Zofran) 4 mg IV Q8H PRN PRN PRN Reason: NAUSEA/VOMITING Oseltamivir Phosphate (Tamiflu) 30 mg PO DAILY [facility] Stop: 10/23/19 10:01 Last Admin: 10/19/19 14:56 Dose: 30 mg Documented by: Pramipexole Dihydrochloride (Mirapex) 0.25 mg PO QHS [facility] Last Admin: 10/19/19 22:18 Dose: Not Given Documented by: Rizatriptan Benzoate (Maxalt) 10 mg PO .X1 PRN PRN PRN Reason: MIGRAINE Sodium Chloride () 10 - 40 ml IV UD PRN PRN Reason: SALINE FLUSH Last Admin: 10/20/19 04:24 Dose: 40 ml Documented by: Tolterodine Tartrate (Detrol La) 4 mg PO DAILY [facility] Assessment/Plan Active and Suspected Problems (Last Updated 03/15/19 @ 17:[address] Eris Jimenez MD) Severe sepsis (Acute) Community acquired pneumonia (Acute) AGUSTIN (acute kidney injury) (Acute) Abdominal pain (Acute) RECOMMENDATIONS: 1. Continue empiric antimicrobials, pending infectious work-up. 2. Continue Tamiflu x5 days. 3. Encourage incentive spirometer use and mobilize patient as tolerated. 4. Repeat CT chest in 6 to 8 weeks following completion of treatment course for pneumonia. 5. The patient is medically stable for transfer out of the intensive care unit. IMPRESSIONS: 1. Severe sepsis secondary to influenza B infection with probable concurrent community-acquired pneumonia The patient has been adequately volume resuscitated and remains hemodynamically stable. Agree with continuing empiric antimicrobials, pending infectious work- up. Continue Tamiflu as ordered. Encourage incentive spirometer use and mobilize patient as tolerated. 2. Abnormal CT scan of chest The patient does have a nodular density in the right middle lobe which is greater than 1 cm in size. The patient denies a personal smoking history. I would recommend that a repeat CT chest be completed 6 to 8 weeks following completion of the patient's treatment for underlying pulmonary infectious process. This lesion may need to be biopsied at some point in the future. 3. Acute on chronic kidney disease Likely prerenal in etiology. Anticipate improvement with volume expansion. Continue to monitor urine output. No indication for renal replacement therapy at this time. 4. Obesity/hypertension/neuropathy/rheumatoid arthritis Complicates care, management, recovery and prognosis. Continue home medications as indicated. Physical therapy to evaluate the patient. This note was generated with The [employer] dictation software. It may contain incorrect words, spelling, and punctuation that were not noted in checking the note before signing. Inpatient E&M: 93642 Init Hosp L3
[2019-10-20] MEDS: Hydroxychloroquine 200 MG Tablet PO ×2 (09:29→16:16)
[2019-10-20] MEDS: Tolterodine Tartrate 4 MG CAP.SA PO (09:29)
[2019-10-20] MEDS: Multivitamins,Therapeutic Tablet 1 TABLET PO (09:30)
[2019-10-20] MEDS: Folic Acid 1 MG Tablet 0.5 MG PO (09:30)
[2019-10-20] MEDS: Ferrous Sulfate 325 MG Tablet PO (09:30)
[2019-10-20] MEDS: Gabapentin 100 MG Capsule PO ×2 (09:31→16:16)
[2019-10-20] MEDS: Enoxaparin 30 MG/0.3 ML Syringe SC (09:31)
[2019-10-20] MEDS: Oseltamivir Phosphate 30 MG Capsule PO (09:36)
--- NOTE | 2019-10-20 09:44 | PN_ITS ---
Patient Problems: Active and Suspected Problems (Last Updated 03/15/19 @ 17:[address] Eris Jimenez MD) Severe sepsis (Acute) Community acquired pneumonia (Acute) AGUSTIN (acute kidney injury) (Acute) Abdominal pain (Acute) Subjective: Patient seen and examined. She is still short of breath complains of feeling very weak and tired. She still complains of shortness of breath. She denies any chest pain, nausea vomiting, palpitations or dizziness. Review of systems otherwise negative. Blood pressure is a bit elevated today at 168/63. She has remained hemodynamically stable otherwise. Sodium is up to 146 and creatinine is down to 1.63. WBC is down to 10.9 and hemoglobin is down to 9.2. Vitals/I&O's: Vital Signs Temp Pulse Resp BP Pulse Ox 98.2 F 87 19 H 168/63 H 100 10/20/19 06:00 10/20/19 06:00 10/20/19 06:00 10/20/19 06:00 10/20/19 07:15 Oxygen Delivery Method Room Air Weight: 195 lb 5.273 oz Body Mass Index (BMI) 36.9 Intake and Output for Last 24 Hours 10/18/19 10/19/19 10/20/19 23:59 23:59 23:59 Intake Total 3935.25 / 3935.25 50 / 50 Output Total 250 / 250 250 / 250 Balance 3685.25 / 3685.25 -200 / -200 General: Alert, Oriented x3, Cooperative, Lethargic HEENT: Atraumatic, PERRLA, EOMI, Normocephalic Oral: Dry Mucosa Neck: Supple, No JVD, Negative Carotid Bruits Lungs: - -mild wheezing in mid and lower lung de leon bilaterally, with coarse crackles. on room air. Cardiovascular: Regular rate, Regular Rhythm, Normal S1, Normal S2, No murmurs Abdomen: Bowel Sounds Present, Soft, Non Tender, Non-Distended, No Hepato- splenomegaly Extremities: No clubbing, No cyanosis, No edema, Capillary Refill Less than 3 Seconds Skin: No rashes, No breakdown Musculoskeletal: No Tenderness to Palpation of Joints or Extremities Lymphatic: No Cervical, Supraclavicular, or Inguinal Adenopathy Neurological: Cranial nerves II-XII grossly intact, Neuro grossly intact, Motor Exam 5/5 strength throughout Psych/Mental Status: Normal Affect, Appropriate, Alert and oriented to time, place, person, mood and affect Microbiology Past 72 Hours 10/19/19 11:30 Urine, Random Streptococcus pneumoniae Antigen (M - Final 10/19/19 11:30 Urine, Random Legionella Antigen - Final 10/19/19 09:32 Mucosa - Nose Respiratory Panel (PCR) - Final Influenzae B 10/19/19 09:47 Mucosa - Nose Influenza Types A,B Direct FA (WILLIE) - Final Laboratory Results 10/19/19 09:37: WBC 20.0 H, RBC 3.91 L, Hgb 10.9 L, Hct 35.5 L, MCV 90.8, MCH 27.9, MCHC 30.7 L, RDW Std Deviation 56.8 H, RDW Coeff of Laxmi 17.2 H, Plt Count 201, MPV 10.0, Immature Gran % (Auto) 0.800, Neut % (Auto) 92.4 H, Lymph % (Auto) 3.0 L, [place] % (Auto) 3.7, Eos % (Auto) 0.0, Baso % (Auto) 0.1, Absolute Neuts (auto) 18.5 H, Absolute Lymphs (auto) 0.60 L, Nucleated RBC % 0, Differential Comment SCANNED 10/19/19 09:37: PT 14.4, INR 1.1, APTT 24.3 10/19/19 09:37: Sodium 138, Potassium 4.3, Chloride 108 H, Carbon Dioxide 18.0 L , Anion Gap 12, BUN 20 H, Creatinine 2.06 H, Estim Creat Clear Calc 14.86, Est GFR (MDRD) Af Amer 30 L, Est GFR (MDRD) Non-Af 24 L, BUN/Creatinine Ratio 9.7 L, Glucose 119 H, Calcium 9.1, Total Bilirubin 0.90, AST 60 H, ALT 46, Alkaline Phosphatase 108, Total Protein 6.7, Albumin 3.0 L, Globulin 3.7, Albumin/Globulin Ratio 0.8 L 10/19/19 09:42: Lactic Acid 3.3 H* 10/19/19 11:30: Urine Color Yellow, Urine Clarity Cloudy, Urine pH 5.0, Ur Specific [place] 1.025, Urine Protein 100 H, Urine Glucose (UA) Normal, Urine Ketones 5 H, Urine Occult Blood 10 H, Urine Nitrite Negative, Urine Bilirubin 1 H, Urine Urobilinogen 4 H, Ur Leukocyte Esterase Negative, Urine RBC 0 SEEN, Urine WBC 0-5 SEEN, Ur Squamous Epith Cells 0-5 SEEN, Amorphous Sediment 2+, Urine Bacteria 2+, Urine Mucus 0 SEEN 10/19/19 13:45: Lactic Acid 0.9 10/19/19 14:00: Specimen Type ART, Sample Site R Brachial, pH 7.37, Bicarbonate Actual 17.6 L, POC Total CO2 18, Base Excess -8 L, O2 Saturation 95, ABG pCO2 30.4 L, ABG pO2 79, O2 Delivery Device Room Air, Blood Gas Notified Whom NATY MONTANEZ, Blood Gas Notified Time 1358 10/19/19 14:55: Troponin I 0.205 H 10/19/19 17:25: Troponin I 0.181 H 10/19/19 21:45: Troponin I 0.111 H 10/20/19 03:45: WBC 10.9, RBC 3.22 L, Hgb 9.2 L, Hct 29.9 L, MCV 92.9, MCH 28.6, MCHC 30.8 L, RDW Std Deviation 58.4 H, RDW Coeff of Laxmi 17.2 H, Plt Count 145 L, MPV 9.8, Immature Gran % (Auto) 0.700, Neut % (Auto) 89.0 H, Lymph % (Auto) 6.2 L, [place] % (Auto) 3.9, Eos % (Auto) 0.1, Baso % (Auto) 0.1, Absolute Neuts (auto) 9.7 H, Absolute Lymphs (auto) 0.67 L, Nucleated RBC % 0, Differential Comment SCANNED, Reactive Lymphocytes RARE 10/20/19 03:45: Sodium 146 H, Potassium 4.2, Chloride 119 H, Carbon Dioxide 21.0, Anion Gap 6, BUN 21 H, Creatinine 1.63 H, Estim Creat Clear Calc 18.78, Est GFR (MDRD) Af Amer 39 L, Est GFR (MDRD) Non-Af 32 L, BUN/Creatinine Ratio 12.9, Glucose 77, Calcium 8.2 L Diagnostic Data Abdomen/Pelvis CT 10/19/19 09:31 IMPRESSION: Hiatal hernia. Colonic diverticulosis. Nodular densities in the lung bases as noted. Increasing interstitial prominence/fibrosis. Electronically Signed: Moncho Jimenez DO at 12:01 EDT Tel [phone], Service support , Chest CT 10/19/19 12:24 IMPRESSION: 1. Right upper lobe and lingular airspace disease suggesting pneumonia. 2. Increased size of nodule in the right middle lobe currently measuring 1.2 cm (previous measurement 0.8 cm). NEOPLASM SHOULD BE CONSIDERED. PET scan and/or biopsy suggested. 3. Mildly worse pulmonary fibrosis. Electronically Signed: Dennis Razo MD ([place]) at 13:40 EDT , Service support , Chest X-Ray 10/20/19 05:55 IMPRESSION: Stable cardiomegaly and patchy airspace disease Electronically Signed: Stef Mendez DO at 7:53 EDT Tel , Service support , Current Medications Hydrocodone Bitart/Acetaminophen (Ennis 5mg-325mg) 1 tablet PO BID PRN PRN PRN Reason: Pain Score 6-10/10 Albuterol Sulfate (Ventolin Aerosols) 2.5 mg INHALATION Q2H PRN PRN PRN Reason: SOB/Wheezing Diphenoxylate HCl/Atropine (Lomotil) 1 tablet PO TID PRN PRN PRN Reason: Diarrhea Enoxaparin Sodium (Lovenox) 30 mg SC DAILY COUNTS INCLUDE 234 BEDS AT THE [facility] Last Admin: 10/20/19 09:31 Dose: 30 mg Documented by: [facility]ous S[facility] ([facility] Sulfate) [facility] Last Admin: 10/20/19 09:30 Dose: 325 mg Documented by: Folic Acid (Folic Acid) 0.5 mg PO DAILY@0800 COUNTS INCLUDE 234 BEDS AT THE [facility] Last Admin: 10/20/19 09:30 Dose: 0.5 mg Documented by: Gabapentin ([facility]urontin) [facility] Last Admin: 10/20/19 09:31 Dose: 100 mg Documented by: Glucagon () 1 mg IM .X1 PRN PRN Reason: Hypoglycemia Hydralazine HCl (Apresoline Iv) 10 mg IV Q4H PRN PRN PRN Reason: SBP > 160 Last Admin: 10/20/19 04:24 Dose: 10 mg Documented by: Hydroxychloroquine Sulfate (Plaquenil) [facility] Last Admin: 10/20/19 09:29 Dose: 200 mg Documented by: Piperacillin Sod/Tazobactam (Sod 3.375 gm/ Sodium Chloride) 50 mls @ 12.5 mls/hr IV Q12 COUNTS INCLUDE 234 BEDS AT THE [facility] Last Infusion: 10/20/19 01:20 Dose: Infused Documented by: Vancomycin IV Pharmacy to Dose (1 ea/ Sodium Chloride) 500 mls @ 250 mls/hr IV X1 PRN; Protocol PRN Reason: Rx to Dose Dextrose (Dextrose 10%-Water) 250 mls @ 999 mls/hr IV .Q16M PRN; Protocol PRN Reason: HYPOGLYCEMIA Sodium Chloride () 250 mls @ 15 mls/hr IV .[id number] PRN PRN Reason: Saline Flush Last Infusion: 10/20/19 01:20 Dose: 15 mls/hr Documented by: Sodium Chloride () 250 mls @ 15 mls/hr IV .[id number] PRN PRN Reason: Additional IVPB Infusion Sodium Chloride () 1,000 mls @ 75 mls/hr IV .[id number] COUNTS INCLUDE 234 BEDS AT THE [facility] Last Admin: 10/19/19 22:02 Dose: 75 mls/hr Documented by: Multivitamins (Multivitamin) [facility] Last Admin: 10/20/19 09:30 Dose: 1 tablet Documented by: Ondansetron HCl (Zofran) 4 mg IV Q8H PRN PRN PRN Reason: NAUSEA/VOMITING Oseltamivir Phosphate (Tamiflu) 30 mg PO DAILY COUNTS INCLUDE 234 BEDS AT THE [facility] Stop: 10/23/19 10:01 Last Admin: 10/19/19 14:56 Dose: 30 mg Documented by: Pramipexole Dihydrochloride (Mirapex) 0.25 mg PO QHS COUNTS INCLUDE 234 BEDS AT THE [facility] Last Admin: 10/19/19 22:18 Dose: Not Given Documented by: Rizatriptan Benzoate (Maxalt) 10 mg PO .X1 PRN PRN PRN Reason: MIGRAINE Sodium Chloride () 10 - 40 ml IV UD PRN PRN Reason: SALINE FLUSH Last Admin: 10/20/19 04:24 Dose: 40 ml Documented by: Tolterodine Tartrate (Detrol La) 4 mg PO DAILY [facility] Last Admin: 10/20/19 09:29 Dose: 4 mg Documented by: STROKE Vital Signs/Narrative: Vital Signs Temp Pulse Resp BP Pulse Ox 10/20/19 07:15 100 10/20/19 06:00 98.2 F 87 19 H 168/63 H 98 Medical Necessity - Tobacco Use Smoking Status: Never smoker Assessment/Plan All Active Problems (Last Updated 03/15/19 @ 17:[address] Eris Jimenez MD) Anemia (Acute) Low back pain (Acute) Low back pain (Acute) History of DVT in adulthood (Acute) Severe sepsis (Acute) Community acquired pneumonia (Acute) AGUSTIN (acute kidney injury) (Acute) Abdominal pain (Acute) 84 y/o admitted with a complaint of abdominal pain, nausea, vomiting and diarrhea as well as shortness of breath. 1. Severe sepsis due to influenza B infection, community acquired pneumonia and UTI * temperature has settled and is 98.2F this morning; wbc is down to 10, and respiratory rate is down to 19. * She is still on room air though she looks very weak. * Urine for strep and Legionella negative. Respiratory panel positive for influenza B and blood cultures pending. * On IV vancomycin and Zosyn. Will continue. * continue breathing breathing treatments. * transfer out of ICU to PCU * Chest CT shows right upper lobe and lingular airspace suggesting pneumonia 2. Community-acquired pneumonia: As under 1. 3. Influenza B infection: As under 1. 4. UTI: As under 1 5. Non-anion gap metabolic acidosis * Creatinine is down to 1.63, with a baseline of around 1.09. * bicarb is up to 21. * Will trend with hydration. * 5. AGUSTIN on CKD: * Creatinine is now down to 1.63 * EGFR is 24. * continue gentle hydration. * 6. Lactic acidosis: trended down to 0.9. * 7. Hypertension: BP is up to 168/63. Will resume atenolol today. 8. History of poly-osteoarthritis: On hydroxychloroquine and gabapentin. DVT prophylaxis: lovenox, renally dosed Code status: full code * Inpatient E&M: 09434 Subs Hosp L3
[2019-10-20] MEDS: 0.9% Normal Saline 1,000 ML 75 ML IV (09:51)
[2019-10-20 12:01] LABS: M R Staph aureus DNA By PCR Negative (Negative); Probe Check PASS; Specimen Processing Control PASS
[2019-10-20] MEDS: Atenolol 25 MG Tablet PO ×2 (12:21→22:49)
[2019-10-20] MEDS: Nystatin Powder 15gm Bottle 1 APPLIC TOPICAL ×2 (15:43→22:49)
[2019-10-20] MEDS: HYDROcodone Bitartrate/Apap 5/325 Tablet PO (15:48)
[2019-10-20] MEDS: Albuterol 2.5 MG/3 ML VIAL.NEB. INHALATION (16:36)
[2019-10-20] MEDS: Pramipexole Di-HCl 0.25 MG Tablet PO (22:49)
[2019-10-20] MEDS: Rizatriptan Benzoate 10 MG Tablet PO (22:58)
[2019-10-21] VITALS (17 sets, daily range): BP systolic 133–175; BP diastolic 46–88; PULSE 68–86; RESP 16–28; TEMP 36.6–36.7; O2SAT 94–97
[2019-10-21] MEDS: HYDROcodone Bitartrate/Apap 5/325 Tablet PO ×3 (00:19→15:25)
--- NOTE | 2019-10-21 06:05 | ECHOCS_ITS ---
Procedure This was a 2D Doppler, Color Flow transthoracic echocardiogram. The study was technically difficult. Due to coughing, deep respirations and dyspnea. Contrast injection was performed. Exam performed portable in patient room. Left Ventricle Normal LV size. Moderate concentric left ventricular hypertrophy. Left ventricular systolic function is normal. The estimated ejection fraction is 60 %. Stage 1 diastolic dysfunction. No regional wall motion abnormalities noted. Right Ventricle Normal RV size. Normal systolic function. Atria The left atrium is mildly enlarged. Normal right atrium. Pulmonic Valve The pulmonic valve is not well visualized. Great Vessels Normal aortic root. The pulmonary artery is normal size. Normal inferior vena cava. Pericardium/Pleural No pericardial effusion. Medication Diluted definity 2.0ml given slow IV push to enhance endocardial definition. MMode/2D Measurements & Calculations LVIDd: 4.1 cm IVSd: 1.5 cm Ao root diam: 3.2 cm LVIDs: 2.7 cm LVPWd: 1.3 cm FS: 34.0 % LAV(MOD-bp): 63.2 ml LA dimension(2D): 3.2 cm LA A4 area: 21.1 cm2 LAV(MOD-bp) Indexed: 33.9 ml/m2 LAV(MOD-sp2): 67.8 ml LAV(MOD-sp4): 51.9 ml RA A4 area: 15.4 cm2 Time Measurements MV dec time: 0.23 sec Doppler Measurements & Calculations MV E max boubacar: 120.2 cm/sec Lat Peak E' Boubacar: 5.7 cm/sec Med Peak E' Boubacar: 10.0 cm/sec MV A max boubacar: 136.3 cm/sec E/E' lat: 20.9 E/E' med: 12.0 MV E/A: 0.88 Ao V2 max: 169.0 cm/sec LV V1 max: 101.8 cm/sec PA V2 max: 91.3 cm/sec Ao max P.4 mmHg LV V1 max P.1 mmHg Interpretation Summary Normal LV size. Moderate concentric left ventricular hypertrophy. Left ventricular systolic function is normal. The estimated ejection fraction is 60 %. Stage 1 diastolic dysfunction. The study was technically difficult. Ordering Physician: Nela Blanco Referring Physician: Candice Amado Performed By: Marilin Deluna, ANISH, RVT
[2019-10-21] MEDS: Rizatriptan Benzoate 10 MG Tablet PO ×3 (06:21→22:11)
[2019-10-21 07:11] LABS: Vancomycin, Random Level 5.9 ug/mL (0.0-15.0)
[2019-10-21 07:13] LABS: Anion Gap 7 (5-15); BUN 16 mg/dL (7-18); BUN/Creat Ratio 11.4 RATIO (10-20); Calcium,Total 8.6 mg/dL (8.5-10.1); Chloride 115 mmol/L (98-107); EST Glomerular Filtration Rate 38 mL/min (>60); Est Glom Filt Rate - Afr Amer 46 mL/min (>60); Estimated Creatinine Clearance 21.87 ml/min; Glucose 81 mg/dL (74-106); Potassium 4.3 mmol/L (3.5-5.1); Sodium Level 143 mmol/L (136-145)
[2019-10-21] MEDS: Ipratropium/Albuterol Sulfate 3 ML AMPUL.NEB INHALATION ×3 (07:20→20:16)
[2019-10-21] MEDS: Folic Acid 1 MG Tablet 0.5 MG PO (09:02)
[2019-10-21] MEDS: Gabapentin 100 MG Capsule PO ×2 (09:02→16:33)
[2019-10-21] MEDS: Oseltamivir Phosphate 30 MG Capsule PO (09:02)
[2019-10-21] MEDS: Hydroxychloroquine 200 MG Tablet PO ×2 (09:03→16:33)
[2019-10-21] MEDS: Ferrous Sulfate 325 MG Tablet PO (09:03)
[2019-10-21] MEDS: Tolterodine Tartrate 4 MG CAP.SA PO (09:03)
[2019-10-21] MEDS: Multivitamins,Therapeutic Tablet 1 TABLET PO (09:03)
[2019-10-21] MEDS: Atenolol 25 MG Tablet PO ×2 (09:03→22:10)
[2019-10-21] MEDS: Enoxaparin 30 MG/0.3 ML Syringe SC (09:09)
[2019-10-21] MEDS: Aspirin 81 MG TAB.CHEW PO (09:12)
[2019-10-21] MEDS: 0.9% Saline Lock 10 ML Syringe IV (09:17)
--- NOTE | 2019-10-21 10:38 | PN_ITS ---
Subjective: Patient did okay overnight. Patient was transferred out of the intensive care unit overnight and did not have any acute issues. Patient continues to report cough and overall fatigue. Patient is tolerating room air and blood pressures have been acceptable. Patient does report limited ambulation. General: Alert, Oriented x3, Cooperative, No apparent distress, - - Obese. Mild conversational dyspnea. HEENT: Atraumatic, PERRLA, EOMI, Normocephalic, - - Mild scleral injection without icterus Oral: Moist Mucosa, No Gingival or Mucosal Lesions/ Ulcerations Neck: Supple, No JVD, No Nodes, Trachea Midline Lungs: No rhonchi, Diminished, Rales - Right greater than left base, Wheezes, - - Symmetric expansion. Cardiovascular: Regular rate, Regular Rhythm, Normal S1, Normal S2, No murmurs, No rub noted, No Gallop Abdomen: Bowel Sounds Present, Soft, Non Tender, Non-Distended, Obese Extremities: No clubbing, No cyanosis, No edema, Capillary Refill Less than 3 Seconds Skin: No rashes, No breakdown Musculoskeletal: No Tenderness to Palpation of Joints or Extremities Lymphatic: No Cervical, Supraclavicular, or Inguinal Adenopathy Neurological: Cranial nerves II-XII grossly intact, Neuro grossly intact, Motor Exam 5/5 strength throughout Psych/Mental Status: Alert and oriented to time, place, person, mood and affect Vital Signs Temp Pulse Resp BP Pulse Ox 36.6 C 79 20 H 174/88 H 95 10/21/19 05:57 10/21/19 07:00 10/21/19 06:45 10/21/19 05:57 10/21/19 06:45 Oxygen Delivery Method Room Air Weight: 90.6 kg Body Mass Index (BMI) 36.9 Intake and Output for Last 24 Hours 10/19/19 10/20/19 10/21/19 23:59 23:59 23:59 Intake Total 3935.25 / 3935.25 2265.50 / 2265.50 290 / 290 Output Total 250 / 250 400 / 400 100 / 100 Balance 3685.25 / 3685.25 1865.50 / 1865.50 190 / 190 Labs (Last 48 Hours) 10/19/19 10/19/19 10/19/19 09:42 11:30 13:45 WBC RBC Hgb Hct MCV MCH MCHC RDW Std Deviation RDW Coeff of Laxmi Plt Count MPV Immature Gran % (Auto) Neut % (Auto) Lymph % (Auto) [place] % (Auto) Eos % (Auto) Baso % (Auto) Absolute Neuts (auto) Absolute Lymphs (auto) Nucleated RBC % Differential Comment Reactive Lymphocytes Specimen Type Sample Site pH Bicarbonate Actual POC Total CO2 Base Excess O2 Saturation ABG pCO2 ABG pO2 O2 Delivery Device Blood Gas Notified Whom Blood Gas Notified Time Sodium Potassium Chloride Carbon Dioxide Anion Gap BUN Creatinine Estim Creat Clear Calc Est GFR (MDRD) Af Amer Est GFR (MDRD) Non-Af BUN/Creatinine Ratio Glucose Lactic Acid 3.3 H* 0.9 Calcium Troponin I Urine Color Yellow Urine Clarity Cloudy Urine pH 5.0 Ur Specific [place] 1.025 Urine Protein 100 H Urine Glucose (UA) Normal Urine Ketones 5 H Urine Occult Blood 10 H Urine Nitrite Negative Urine Bilirubin 1 H Urine Urobilinogen 4 H Ur Leukocyte Esterase Negative Urine RBC 0 SEEN Urine WBC 0-5 SEEN Ur Squamous Epith Cells 0-5 SEEN Amorphous Sediment 2+ Urine Bacteria 2+ Urine Mucus 0 SEEN Random Vancomycin MRSA (PCR) 10/19/19 10/19/19 10/19/19 14:00 14:55 17:25 WBC RBC Hgb Hct MCV MCH MCHC RDW Std Deviation RDW Coeff of Laxmi Plt Count MPV Immature Gran % (Auto) Neut % (Auto) Lymph % (Auto) [place] % (Auto) Eos % (Auto) Baso % (Auto) Absolute Neuts (auto) Absolute Lymphs (auto) Nucleated RBC % Differential Comment Reactive Lymphocytes Specimen Type ART Sample Site R Brachial pH 7.37 Bicarbonate Actual 17.6 L POC Total CO2 18 Base Excess -8 L O2 Saturation 95 ABG pCO2 30.4 L ABG pO2 79 O2 Delivery Device Room Air Blood Gas Notified Whom [facility] Blood Gas Notified Time 1358 Sodium Potassium Chloride Carbon Dioxide Anion Gap BUN Creatinine Estim Creat Clear Calc Est GFR (MDRD) Af Amer Est GFR (MDRD) Non-Af BUN/Creatinine Ratio Glucose Lactic Acid Calcium Troponin I 0.205 H 0.181 H Urine Color Urine Clarity Urine pH Ur Specific [place] Urine Protein Urine Glucose (UA) Urine Ketones Urine Occult Blood Urine Nitrite Urine Bilirubin Urine Urobilinogen Ur Leukocyte Esterase Urine RBC Urine WBC Ur Squamous Epith Cells Amorphous Sediment Urine Bacteria Urine Mucus Random Vancomycin MRSA (PCR) 10/19/19 10/20/19 10/20/19 21:45 03:45 03:45 WBC 10.9 RBC 3.22 L Hgb 9.2 L Hct 29.9 L MCV 92.9 MCH 28.6 MCHC 30.8 L RDW Std Deviation 58.4 H RDW Coeff of Laxmi 17.2 H Plt Count 145 L MPV 9.8 Immature Gran % (Auto) 0.700 Neut % (Auto) 89.0 H Lymph % (Auto) 6.2 L [place] % (Auto) 3.9 Eos % (Auto) 0.1 Baso % (Auto) 0.1 Absolute Neuts (auto) 9.7 H Absolute Lymphs (auto) 0.67 L Nucleated RBC % 0 Differential Comment SCANNED Reactive Lymphocytes RARE Specimen Type Sample Site pH Bicarbonate Actual POC Total CO2 Base Excess O2 Saturation ABG pCO2 ABG pO2 O2 Delivery Device Blood Gas Notified Whom Blood Gas Notified Time Sodium 146 H Potassium 4.2 Chloride 119 H Carbon Dioxide 21.0 Anion Gap 6 BUN 21 H Creatinine 1.63 H Estim Creat Clear Calc 18.78 Est GFR (MDRD) Af Amer 39 L Est GFR (MDRD) Non-Af 32 L BUN/Creatinine Ratio 12.9 Glucose 77 Lactic Acid Calcium 8.2 L Troponin I 0.111 H Urine Color Urine Clarity Urine pH Ur Specific [place] Urine Protein Urine Glucose (UA) Urine Ketones Urine Occult Blood Urine Nitrite Urine Bilirubin Urine Urobilinogen Ur Leukocyte Esterase Urine RBC Urine WBC Ur Squamous Epith Cells Amorphous Sediment Urine Bacteria Urine Mucus Random Vancomycin MRSA (PCR) 10/20/19 10/21/19 10/21/19 09:55 06:10 06:10 WBC RBC Hgb Hct MCV MCH MCHC RDW Std Deviation RDW Coeff of Laxmi Plt Count MPV Immature Gran % (Auto) Neut % (Auto) Lymph % (Auto) [place] % (Auto) Eos % (Auto) Baso % (Auto) Absolute Neuts (auto) Absolute Lymphs (auto) Nucleated RBC % Differential Comment Reactive Lymphocytes Specimen Type Sample Site pH Bicarbonate Actual POC Total CO2 Base Excess O2 Saturation ABG pCO2 ABG pO2 O2 Delivery Device Blood Gas Notified Whom Blood Gas Notified Time Sodium 143 Potassium 4.3 Chloride 115 H Carbon Dioxide 21.0 Anion Gap 7 BUN 16 Creatinine 1.40 H Estim Creat Clear Calc 21.87 Est GFR (MDRD) Af Amer 46 L Est GFR (MDRD) Non-Af 38 L BUN/Creatinine Ratio 11.4 Glucose 81 Lactic Acid Calcium 8.6 Troponin I Urine Color Urine Clarity Urine pH Ur Specific [place] Urine Protein Urine Glucose (UA) Urine Ketones Urine Occult Blood Urine Nitrite Urine Bilirubin Urine Urobilinogen Ur Leukocyte Esterase Urine RBC Urine WBC Ur Squamous Epith Cells Amorphous Sediment Urine Bacteria Urine Mucus Random Vancomycin 5.9 MRSA (PCR) Negative Microbiology 10/19/19 09:42 Blood Culture (Wb) - Venous Blood Culture - Preliminary No growth in 48 hours. 10/19/19 09:37 Blood Culture (Wb) - Anticubital Left Blood Culture - Preliminary No growth in 48 hours. 10/19/19 11:30 Urine, Random Streptococcus pneumoniae Antigen (M - Final Streptococcus pneumonia Ag 10/19/19 11:30 Urine, Catheterized Urine Culture - Preliminary Culture exhibits no growth. 10/19/19 11:30 Urine, Random Legionella Antigen - Final 10/19/19 09:32 Mucosa - Nose Respiratory Panel (PCR) - Final Influenzae B 10/19/19 09:47 Mucosa - Nose Influenza Types A,B Direct FA (WILLIE) - Final Medical Necessity - Tobacco Use Smoking Status: Never smoker Assessment/Plan All Active Problems (Last Updated 03/15/19 @ 17:[address] Eris Jimenez MD) Anemia (Acute) Low back pain (Acute) Low back pain (Acute) History of DVT in adulthood (Acute) Severe sepsis (Acute) Community acquired pneumonia (Acute) AGUSTIN (acute kidney injury) (Acute) Abdominal pain (Acute) RECOMMENDATIONS: 1. Continue antimicrobials. Likely okay to narrow antibiotic spectrum given pneumococcal antigen 2. Continue Tamiflu x5 days. 3. Encourage incentive spirometer use and mobilize patient as tolerated. 4. Repeat CT chest in 6 to 8 weeks following completion of treatment course for pneumonia. 5. Walking oximetry prior to discharge IMPRESSIONS: 1. Severe sepsis secondary to influenza B infection with concurrent pneumococcal pneumonia The patient has been adequately volume resuscitated and remains hemodynamically stable. Patient with pneumococcal antigen positive. Likely okay to narrow antibiotic spectrum. Continue Tamiflu as ordered. Encourage incentive spirometer use and mobilize patient as tolerated. Patient will need a walking oximetry prior to discharge to ensure there is no desaturation given level of infiltrates noted on CT scan of the chest. 2. Abnormal CT scan of chest The patient does have a nodular density in the right middle lobe which is greater than 1 cm in size. The patient denies a personal smoking history. Given positive pneumococcal antigen, this may represent acute infection. I would recommend that a repeat CT chest be completed 6 to 8 weeks following completion of the patient's treatment for underlying pulmonary infectious process. This lesion may need to be biopsied at some point in the future. 3. Acute on chronic kidney disease/hypernatremia/hyperchloremia Improving. Likely prerenal in etiology. Continue to monitor urine output. No indication for renal replacement therapy at this time. Hypernatremia and hyperchloremia likely secondary to fluid resuscitation and are improving with p.o. diet. 4. Obesity/hypertension/neuropathy/rheumatoid arthritis Complicates care, management, recovery and prognosis. Continue home medications as indicated. Physical therapy to evaluate the patient. Inpatient E&M: [id number] [facility] Hosp L2
--- NOTE | 2019-10-21 13:22 | CASEMGMT ---
Assessment- SW completed assessment with patient at bedside. SW confirmed phone numbers and addresses for patient and contacts. Living situation- Patient lives with her daughter and son. Her home is 2 stories, but she is set up on the first floor. There are 2 entry steps and a ramp as well. PCP: Dr Amado Specialists: She sees a Pain Management Dr, but cannot remember his name [facility] D[facility]: wheeled walker, rollator, shower chair, wheelchair, and electric bed ADL's/IADL's: Patient normally uses a wheeled walker to get around. She bathes herself and manages her own meds. Her son and daughter help with meals, cleaning, laundry, and driving. Past SNF/rehab: None Past HH: None LW: None POA: None At this time patient's plan is to return home. SW did let her know that [facility] and [facility] will continue to follow and monitor to see if she needs anything at d/c. [facility] told her about home health and what insurance covers. Plan: [facility] and [facility] following for discharge planning Marbella RAZA MSW
[2019-10-21] MEDS: Nystatin Powder 15gm Bottle 1 APPLIC TOPICAL ×2 (14:55→22:10)
--- NOTE | 2019-10-21 15:10 | PCM.PROGNOTE ---
<Misty Billingsley - Last Filed: 10/21/19 15:23> Patient Problems: Active and Suspected Problems (Last Updated 03/15/19 @ 17:[address] Eris Jimenez MD) Severe sepsis (Acute) Community acquired pneumonia (Acute) AGUSTIN (acute kidney injury) (Acute) Abdominal pain (Acute) Subjective: Patient seen and examined. Complains of generalized weakness. Denies other complaints. Denies significant shortness of breath. Denies fever, chills. - Physical Exam Vitals/I&O's: Vital Signs Temp Pulse Resp BP Pulse Ox 98.0 F 80 18 175/70 H 95 10/21/19 11:15 10/21/19 11:15 10/21/19 11:15 10/21/19 11:15 10/21/19 13:35 Oxygen Delivery Method Room Air Weight: 199 lb 11.821 oz Body Mass Index (BMI) 36.9 Intake and Output for Last 24 Hours 10/19/19 10/20/19 10/21/19 23:59 23:59 23:59 Intake Total 3935.25 / 3935.25 2265.50 / 2265.50 735 / 735 Output Total 250 / 250 400 / 400 300 / 300 Balance 3685.25 / 3685.25 1865.50 / 1865.50 435 / 435 General: Alert, Oriented x3, Cooperative HEENT: Atraumatic, PERRLA, EOMI, Normocephalic Neck: Supple, No JVD, Negative Carotid Bruits Lungs: Diminished, - - Crackles Cardiovascular: Regular rate, Regular Rhythm, Normal S1, Normal S2, No murmurs Abdomen: Bowel Sounds Present, Soft, Non Tender, Non-Distended Extremities: No clubbing, No cyanosis, No edema, Capillary Refill Less than 3 Seconds Skin: No rashes, No breakdown Musculoskeletal: No Tenderness to Palpation of Joints or Extremities Neurological: Cranial nerves II-XII grossly intact, Neuro grossly intact Psych/Mental Status: Normal Affect, Appropriate Microbiology Past 72 Hours 10/19/19 11:30 Urine, Catheterized Urine Culture - Final Culture exhibits no growth. 10/19/19 09:42 Blood Culture (Wb) - Venous Blood Culture - Preliminary No growth in 48 hours. 10/19/19 09:37 Blood Culture (Wb) - Anticubital Left Blood Culture - Preliminary No growth in 48 hours. 10/19/19 11:30 Urine, Random Streptococcus pneumoniae Antigen (M - Final Streptococcus pneumonia Ag 10/19/19 11:30 Urine, Random Legionella Antigen - Final 10/19/19 09:32 Mucosa - Nose Respiratory Panel (PCR) - Final Influenzae B 10/19/19 09:47 Mucosa - Nose Influenza Types A,B Direct FA (WILLIE) - Final Laboratory Results 10/21/19 06:10: Random Vancomycin 5.9 10/21/19 06:10: Sodium 143, Potassium 4.3, Chloride 115 H, Carbon Dioxide 21.0, Anion Gap 7, BUN 16, Creatinine 1.40 H, Estim Creat Clear Calc 21.87, Est GFR (MDRD) Af Amer 46 L, Est GFR (MDRD) Non-Af 38 L, BUN/Creatinine Ratio 11.4, Glucose 81, Calcium 8.6 Current Medications Hydrocodone Bitart/Acetaminophen ([place] 5mg-325mg) 1 tablet PO BID PRN PRN PRN Reason: Pain Score 6-10/10 Last Admin: 10/21/19 06:10 Dose: 1 tablet Documented by: Albuterol Sulfate (Ventolin Aerosols) 2.5 mg INHALATION Q2H PRN PRN PRN Reason: SOB/Wheezing Last Admin: 10/20/19 16:36 Dose: 2.5 mg Documented by: Albuterol/Ipratropium (Duoneb) 3 ml INHALATION Q4HWA.RT COUNT INCLUDES [facility] Last Admin: 10/21/19 14:44 Dose: 3 ml Documented by: Amoxicillin/Clavulanate Potassium (Augmentin Tablet) 500 mg PO Q12 COUNT INCLUDES THE [facility] Stop: 10/26/19 22:01 Aspirin (Aspirin, Baby) 81 mg PO DAILY@0800 [facility]CLUDES [facility] Last Admin: 10/21/19 09:12 Dose: 81 mg Documented by: Atenolol (Tenormin (Beta Kate)) 25 mg PO BID COUNT INCLUDES [facility] Last Admin: 10/21/19 09:03 Dose: 25 mg Documented by: Diphenoxylate HCl/Atropine (Lomotil) 1 tablet PO TID PRN PRN PRN Reason: Diarrhea Enoxaparin Sodium (Lovenox) 30 mg SC DAILY COUNT INCLUDES [facility] Last Admin: 10/21/19 09:09 Dose: 30 mg Documented by: Ferrous Sulfate ([facility]ous Sulfate) [facility] Last Admin: 10/21/19 09:03 Dose: 325 mg Documented by: Folic Acid (Folic Acid) 0.5 mg PO DAILY@0800 [facility] Last Admin: 10/21/19 09:02 Dose: 0.5 mg Documented by: Gabapentin (Neurontin) [facility] Last Admin: 10/21/19 09:02 Dose: 100 mg Documented by: Glucagon () 1 mg IM .X1 PRN PRN Reason: Hypoglycemia Hydralazine HCl (Apresoline Iv) 10 mg IV Q4H PRN PRN PRN Reason: SBP > 160 Last Admin: 10/20/19 14:32 Dose: 10 mg Documented by: Hydroxychloroquine Sulfate (Plaquenil) [facility] Last Admin: 10/21/19 09:03 Dose: 200 mg Documented by: Dextrose (Dextrose 10%-Water) 250 mls @ 999 mls/hr IV .Q16M PRN; Protocol PRN Reason: HYPOGLYCEMIA Sodium Chloride () 250 mls @ 15 mls/hr IV .[id number] PRN PRN Reason: Saline Flush Last Infusion: 10/20/19 16:17 Dose: Infused Documented by: Sodium Chloride () 250 mls @ 15 mls/hr IV .[id number] PRN PRN Reason: Additional IVPB Infusion Multivitamins (Multivitamin) [facility] Last Admin: 10/21/19 09:03 Dose: 1 tablet Documented by: Nystatin (Mycostatin Powder) 1 applic TOPICAL TID COUNT INCLUDES [facility]; Protocol Last Admin: 10/21/19 14:55 Dose: 1 applicatio Documented by: Ondansetron HCl (Zofran) 4 mg IV Q8H PRN PRN PRN Reason: NAUSEA/VOMITING Oseltamivir Phosphate (Tamiflu) 30 mg PO DAILY COUNT INCLUDES [facility] Stop: 10/23/19 10:01 Last Admin: 10/21/19 09:02 Dose: 30 mg Documented by: Pramipexole Dihydrochloride (Mirapex) 0.25 mg PO QHS COUNT [facility]CLUDES [facility] Last Admin: 10/20/19 22:49 Dose: 0.25 mg Documented by: Rizatriptan Benzoate (Maxalt) 10 mg PO .X1 PRN PRN PRN Reason: MIGRAINE Last Admin: 03/16/20 06:21 Dose: 10 mg Documented by: Sodium Chloride () 10 - 40 ml IV UD PRN PRN Reason: SALINE FLUSH Last Admin: 10/21/19 09:17 Dose: 10 ml Documented by: Tolterodine Tartrate (Detrol La) 4 mg PO DAILY [facility] Last Admin: 10/21/19 09:03 Dose: 4 mg Documented by: Medical Necessity - Tobacco Use Smoking Status: Never smoker Assessment/Plan All Active Problems (Last Updated 03/15/19 @ 17:[address] Eris Jimenez MD) Anemia (Acute) Low back pain (Acute) Low back pain (Acute) History of DVT in adulthood (Acute) Severe sepsis (Acute) Community acquired pneumonia (Acute) AGUSTIN (acute kidney injury) (Acute) Abdominal pain (Acute) 1. Severe sepsis secondary to acute influenza B and Streptococcus pneumonia-UTI ruled out. Continue Tamiflu course. Initially placed on IV Zosyn and IV vancomycin. Transition to oral Augmentin given improvement. Oxygen stable on room air. Albuterol and DuoNeb aerosols. 2. Abnormal CT of chest-pulmonary medicine following. Patient will need repeat CT in 6 to 8 weeks. Nodular density right middle lobe but noted on CT. 3. Acute kidney injury on chronic kidney disease stage III-improved, trend BMP. 4. Hypertension-on atenolol. 5. [id number]-[id number] hydrochloric when and gabapentin. DVT prophylaxis- Lovenox sc Discharge plan: Follow PT recommendations. This patient was seen by MELLY Carbone under the supervision of Dr. Jefferson. <Julianne Jefferson - Last Filed: 10/21/19 15:40> - Physical Exam Vitals/I&O's: Vital Signs Temp Pulse Resp BP Pulse Ox 98.0 F 78 16 175/70 H 95 10/21/19 11:15 10/21/19 14:44 10/21/19 14:44 10/21/19 11:15 10/21/19 13:35 Oxygen Delivery Method Room Air Weight: 90.6 kg Body Mass Index (BMI) 36.9 Intake and Output for Last 24 Hours 10/19/19 10/20/19 10/21/19 23:59 23:59 23:59 Intake Total 3935.25 / 3935.25 2265.50 / 2265.50 735 / 735 Output Total 250 / 250 400 / 400 300 / 300 Balance 3685.25 / 3685.25 1865.50 / 1865.50 435 / 435 Microbiology Past 72 Hours 10/19/19 11:30 Urine, Catheterized Urine Culture - Final Culture exhibits no growth. 10/19/19 09:42 Blood Culture (Wb) - Venous Blood Culture - Preliminary No growth in 48 hours. 10/19/19 09:37 Blood Culture (Wb) - Anticubital Left Blood Culture - Preliminary No growth in 48 hours. 10/19/19 11:30 Urine, Random Streptococcus pneumoniae Antigen (M - Final Streptococcus pneumonia Ag 10/19/19 11:30 Urine, Random Legionella Antigen - Final 10/19/19 09:32 Mucosa - Nose Respiratory Panel (PCR) - Final Influenzae B 10/19/19 09:47 Mucosa - Nose Influenza Types A,B Direct FA (WILLIE) - Final Laboratory Results 10/21/19 06:10: Random Vancomycin 5.9 10/21/19 06:10: Sodium 143, Potassium 4.3, Chloride 115 H, Carbon Dioxide 21.0, Anion Gap 7, BUN 16, Creatinine 1.40 H, Estim Creat Clear Calc 21.87, Est GFR (MDRD) Af Amer 46 L, Est GFR (MDRD) Non-Af 38 L, BUN/Creatinine Ratio 11.4, Glucose 81, Calcium 8.6 Current Medications Hydrocodone Bitart/Acetaminophen ([place] 5mg-325mg) 1 tablet PO BID PRN PRN PRN Reason: Pain Score 6-10/10 Last Admin: 10/21/19 15:25 Dose: 1 tablet Documented by: Albuterol Sulfate (Ventolin Aerosols) 2.5 mg INHALATION Q2H PRN PRN PRN Reason: SOB/Wheezing Last Admin: 10/20/19 16:36 Dose: 2.5 mg Documented by: Albuterol/Ipratropium (Duoneb) 3 ml INHALATION Q4HWA.RT COUNT INCLUDES [facility] Last Admin: 10/21/19 14:44 Dose: 3 ml Documented by: Amoxicillin/Clavulanate Potassium (Augmentin Tablet) 500 mg PO Q12 COUNT INCLUDES [facility] Stop: 10/26/19 22:01 Aspirin (Aspirin, Baby) 81 mg PO DAILY@0800 COUNT INCLUDES [facility] Last Admin: 10/21/19 09:12 Dose: 81 mg Documented by: Atenolol (Tenormin (Beta Kate)) 25 mg PO BID COUNT INCLUDES [facility] Last Admin: 10/21/19 09:03 Dose: 25 mg Documented by: Diphenoxylate HCl/Atropine (Lomotil) 1 tablet PO TID PRN PRN PRN Reason: Diarrhea Enoxaparin Sodium (Lovenox) 30 mg SC DAILY COUNT INCLUDES [facility] Last Admin: 10/21/19 09:09 Dose: 30 mg Documented by: Ferrous Sulfate (Ferrous Sulfate) [facility] Last Admin: 10/21/19 09:03 Dose: 325 mg Documented by: Folic Acid (Folic Acid) 0.5 mg PO DAILY@0800 COUNT [facility]CLUDES [facility] Last Admin: 10/21/19 09:02 Dose: 0.5 mg Documented by: Gabapentin (Neurontin) [facility] Last Admin: 10/21/19 09:02 Dose: 100 mg Documented by: Glucagon () 1 mg IM .X1 PRN PRN Reason: Hypoglycemia Hydralazine HCl (Apresoline Iv) 10 mg IV Q4H PRN PRN PRN Reason: SBP > 160 Last Admin: 10/20/19 14:32 Dose: 10 mg Documented by: Hydroxychloroquine Sulfate (Plaquenil) [facility] Last Admin: 10/21/19 09:03 Dose: 200 mg Documented by: Dextrose (Dextrose 10%-Water) 250 mls @ 999 mls/hr IV .Q16M PRN; Protocol PRN Reason: HYPOGLYCEMIA Sodium Chloride () 250 mls @ 15 mls/hr IV .[id number] PRN PRN Reason: Saline Flush Last Infusion: 10/20/19 16:17 Dose: Infused Documented by: Sodium Chloride () 250 mls @ 15 mls/hr IV .[id number] PRN PRN Reason: Additional IVPB Infusion Multivitamins (Multivitamin) 1 [facility] Last Admin: 10/21/19 09:03 Dose: 1 tablet Documented by: Nystatin (Mycostatin Powder) 1 applic TOPICAL TID COUNT INCLUDES [facility]; Protocol Last Admin: 10/21/19 14:55 Dose: 1 applicatio Documented by: Ondansetron HCl (Zofran) 4 mg IV Q8H PRN PRN PRN Reason: NAUSEA/VOMITING Oseltamivir Phosphate (Tamiflu) 30 mg PO DAILY COUNT INCLUDES [facility] Stop: 10/23/19 10:01 Last Admin: 10/21/19 09:02 Dose: 30 mg Documented by: Pramipexole Dihydrochloride (Mirapex) 0.25 mg PO QHS COUNT INCLUDES [facility] Last Admin: 10/20/19 22:49 Dose: 0.25 mg Documented by: Rizatriptan Benzoate (Maxalt) 10 mg PO .X1 PRN PRN PRN Reason: MIGRAINE Last Admin: 10/21/19 06:21 Dose: 10 mg Documented by: Sodium Chloride () 10 - 40 ml IV UD PRN PRN Reason: SALINE FLUSH Last Admin: 10/21/19 09:17 Dose: 10 ml Documented by: Tolterodine Tartrate (Detrol La) 4 mg PO DAILY COUNT INCLUDES [facility] Last Admin: 10/21/19 09:03 Dose: 4 mg Documented by: Assessment/Plan This patient was seen in conjunction with Misty Billingsley [employer]PERVIS[employer]. I have independently interviewed and examined the patient and reviewed pertinent historical, laboratory, and other data. Please refer to her note for patient's presentation, findings, and recommendations. Patient was seen and examined. Feels improved. Denied any fever or chills or nausea or vomiting. No acute events overnight. Vitals were reviewed -stable Physical Exam: Gen: Obese, appears frail, not pale, not jaundiced, alert oriented x3 CVS:HS I +II, regular, no murmurs RESP: Diminished at lung bases GI: BS present and normal, nontender, no palpable organs EXT:No edema Labs reviewed: ASSESSMENT: 1. Severe sepsis secondary to acute influenza B/pneumonia/UTI 2. Streptococcal pneumonia 3. Acute influenza B bronchitis 4. Acute UTI 5. AGUSTIN on CKD stage III 6. Lung mass/nodule seen on CT of the chest Meds reviewed Plan: Switch to Augmentin, in for a total of 1 week treatment Continue on Tamiflu Continue breathing treatments Follow-up with blood work in a.m. Inpatient E&M: [id number] [facility] Hosp L2
[2019-10-21] MEDS: hydrALAZINE 20 MG/ML Vial 10 MG IV (16:33)
[2019-10-21] MEDS: Pramipexole Di-HCl 0.25 MG Tablet PO (22:10)
[2019-10-21] MEDS: MELATONIN 3 MG TABLET PO (22:10)
[2019-10-21] MEDS: Amox/Clavulanate 500 MG Tablet PO (22:10)
[2019-10-22] VITALS (17 sets, daily range): BP systolic 143–174; BP diastolic 58–88; PULSE 74–89; RESP 16–26; TEMP 36.7–37.2; O2SAT 95–98
[2019-10-22] MEDS: HYDROcodone Bitartrate/Apap 5/325 Tablet PO (01:09)
[2019-10-22 06:05] LABS: Hematocrit 31.4 % (37-47); Hemoglobin 9.6 g/dL (12.0-15.0); Mean Corp Hgb Conc 30.6 g/dL (32-36); Mean Corpuscular Volume 91.5 fL (81-99); Mean Platelet Vol. 9.8 fl (6.2-12.0); Platelet Count 216 K/mm3 (150-450); RBC Distribution Width CV 16.9 % (11.6-14.6); RBC Distribution Width SD 57.1 fl (35.1-43.9); Red Blood Count 3.43 M/mm3 (4.2-5.4); White Blood Count 6.6 K/mm3 (4.4-11.0)
[2019-10-22 06:26] LABS: Anion Gap 8 (5-15); BUN 17 mg/dL (7-18); BUN/Creat Ratio 12.8 RATIO (10-20); Chloride 112 mmol/L (98-107); Creatinine, Serum 1.33 mg/dL (0.55-1.02); EST Glomerular Filtration Rate 41 mL/min (>60); Est Glom Filt Rate - Afr Amer 49 mL/min (>60); Estimated Creatinine Clearance 23.02 ml/min; Glucose 96 mg/dL (74-106); Potassium 4.4 mmol/L (3.5-5.1); Sodium Level 140 mmol/L (136-145)
[2019-10-22 06:38] LABS: Phosphorus 2.9 mg/dL (2.5-4.9)
[2019-10-22] MEDS: Nystatin Powder 15gm Bottle 1 APPLIC TOPICAL ×3 (07:05→21:27)
--- NOTE | 2019-10-22 08:11 | PCM.PN.PUL ---
Patient Problems: Active and Suspected Problems (Last Updated 03/15/19 @ 17:[address] Eris Jimenez MD) Severe sepsis (Acute) Community acquired pneumonia (Acute) AGUSTIN (acute kidney injury) (Acute) Abdominal pain (Acute) Subjective: Patient did okay overnight from a hemodynamic standpoint. Patient did report significant nausea this morning, but no emesis. Patient was tolerating room air. Patient did report some cough, but marginal production - Physical Exam Vitals/I&O's: Vital Signs Temp Pulse Resp BP Pulse Ox 36.7 C 75 20 H 143/79 H 96 10/22/19 04:05 10/22/19 04:05 10/22/19 04:05 10/22/19 04:05 10/22/19 04:05 Oxygen Delivery Method Room Air Weight: 90.6 kg Body Mass Index (BMI) 36.9 Intake and Output for Last 24 Hours 10/20/19 10/21/19 10/22/19 23:59 23:59 23:59 Intake Total 2265.50 / 2265.50 1215 / 1215 240 / 240 Output Total 400 / 400 850 / 850 400 / 400 Balance 1865.50 / 1865.50 365 / 365 -160 / -160 General: Alert, Oriented x3, Cooperative, - - Mild to moderate distress secondary to nausea HEENT: Atraumatic, PERRLA, EOMI, Normocephalic, - - No scleral icterus or injection noted Oral: Moist Mucosa, No Gingival or Mucosal Lesions/ Ulcerations Neck: Supple, No JVD, No Nodes, Trachea Midline Lungs: No rhonchi, No wheeze, No rales, Diminished, - - Fair effort. Cardiovascular: Regular rate, Regular Rhythm, Normal S1, Normal S2, No murmurs, No rub noted, No Gallop Abdomen: Soft, Non Tender, Non-Distended, Hyperactive Bowel Sounds, Obese Extremities: No clubbing, No cyanosis, Edema Skin: No rashes, No breakdown Musculoskeletal: No Tenderness to Palpation of Joints or Extremities Lymphatic: No Cervical, Supraclavicular, or Inguinal Adenopathy Neurological: Cranial nerves II-XII grossly intact, Neuro grossly intact, Motor Exam 5/5 strength throughout Psych/Mental Status: Anxious, Restless Microbiology Past 72 Hours 10/19/19 11:30 Urine, Catheterized Urine Culture - Final Culture exhibits no growth. 10/19/19 09:42 Blood Culture (Wb) - Venous Blood Culture - Preliminary No growth in 48 hours. 10/19/19 09:37 Blood Culture (Wb) - Anticubital Left Blood Culture - Preliminary No growth in 48 hours. 10/19/19 11:30 Urine, Random Streptococcus pneumoniae Antigen (M - Final Streptococcus pneumonia Ag 10/19/19 11:30 Urine, Random Legionella Antigen - Final 10/19/19 09:32 Mucosa - Nose Respiratory Panel (PCR) - Final Influenzae B 10/19/19 09:47 Mucosa - Nose Influenza Types A,B Direct FA (WILLIE) - Final Laboratory Results 10/22/19 05:32: WBC 6.6, RBC 3.43 L, Hgb 9.6 L, Hct 31.4 L, MCV 91.5, MCH 28.0, MCHC 30.6 L, RDW Std Deviation 57.1 H, RDW Coeff of Laxmi 16.9 H, Plt Count 216, MPV 9.8 10/22/19 05:32: Sodium 140, Potassium 4.4, Chloride 112 H, Carbon Dioxide 20.0 L, Anion Gap 8, BUN 17, Creatinine 1.33 H, Estim Creat Clear Calc 23.02, Est GFR (MDRD) Af Amer 49 L, Est GFR (MDRD) Non-Af 41 L, BUN/Creatinine Ratio 12.8, Glucose 96, Calcium 9.0 10/22/19 05:32: Phosphorus 2.9 Current Medications Hydrocodone Bitart/Acetaminophen ([place] 5mg-325mg) 1 tablet PO BID PRN PRN PRN Reason: Pain Score 6-10/10 Last Admin: 10/22/19 01:09 Dose: 1 tablet Documented by: Albuterol Sulfate (Ventolin Aerosols) 2.5 mg INHALATION Q2H PRN PRN PRN Reason: SOB/Wheezing Last Admin: 10/20/19 16:36 Dose: 2.5 mg Documented by: Albuterol/Ipratropium (Duoneb) 3 ml INHALATION Q4HWA.RT [facility] Last Admin: 10/21/19 20:16 Dose: 3 ml Documented by: Amoxicillin/Clavulanate Potassium (Augmentin Tablet) 500 mg PO Q12 [facility] Stop: 10/26/19 22:01 Last Admin: 10/21/19 22:10 Dose: 500 mg Documented by: Aspirin (Aspirin, Baby) 81 mg PO DAILY@0800 [facility] Last Admin: 10/21/19 09:12 Dose: 81 mg Documented by: Atenolol (Tenormin (Beta Kate)) 25 mg PO BID [facility] Last Admin: 10/21/19 22:10 Dose: 25 mg Documented by: Diphenoxylate HCl/Atropine (Lomotil) 1 tablet PO TID PRN PRN PRN Reason: Diarrhea Enoxaparin Sodium (Lovenox) 30 mg SC DAILY [facility] Last Admin: 10/21/19 09:09 Dose: 30 mg Documented by: Ferrous Sulfate (Ferrous Sulfate) [facility] Last Admin: 10/21/19 09:03 Dose: 325 mg Documented by: Folic Acid (Folic Acid) 0.5 mg PO DAILY@0800 [facility] Last Admin: 10/21/19 09:02 Dose: 0.5 mg Documented by: Gabapentin (Neurontin) 100 [facility] Last Admin: 10/21/19 16:33 Dose: 100 mg Documented by: Glucagon () 1 mg IM .X1 PRN PRN Reason: Hypoglycemia Hydralazine HCl (Apresoline Iv) 10 mg IV Q4H PRN PRN PRN Reason: SBP > 160 Last Admin: 10/21/19 16:33 Dose: 10 mg Documented by: Hydroxychloroquine Sulfate (Plaquenil) 200 [facility] Last Admin: 10/21/19 16:33 Dose: 200 mg Documented by: Dextrose (Dextrose 10%-Water) 250 mls @ 999 mls/hr IV .Q16M PRN; Protocol PRN Reason: HYPOGLYCEMIA Sodium Chloride () 250 mls @ 15 mls/hr IV .[id number] PRN PRN Reason: Saline Flush Last Infusion: 10/20/19 16:17 Dose: Infused Documented by: Sodium Chloride () 250 mls @ 15 mls/hr IV .[id number] PRN PRN Reason: Additional IVPB Infusion Melatonin (Melatonin) 3 mg PO QHS [facility] Last Admin: 10/21/19 22:10 Dose: 3 mg Documented by: Multivitamins (Multivitamin) 1 tablet [facility] Last Admin: 10/21/19 09:03 Dose: 1 tablet Documented by: Nystatin (Mycostatin Powder) 1 applic TOPICAL TID [facility]; Protocol Last Admin: 10/22/19 07:05 Dose: 1 applicatio Documented by: Ondansetron HCl (Zofran) 4 mg IV Q8H PRN PRN PRN Reason: NAUSEA/VOMITING Oseltamivir Phosphate (Tamiflu) 30 mg PO DAILY [facility] Stop: 10/23/19 10:01 Last Admin: 10/21/19 09:02 Dose: 30 mg Documented by: Pramipexole Dihydrochloride (Mirapex) 0.25 mg PO QHS [facility] Last Admin: 10/21/19 22:10 Dose: 0.25 mg Documented by: Rizatriptan Benzoate (Maxalt) 10 mg PO .X1 PRN PRN PRN Reason: MIGRAINE Last Admin: 10/21/19 22:11 Dose: 10 mg Documented by: Sodium Chloride () 10 - 40 ml IV UD PRN PRN Reason: SALINE FLUSH Last Admin: 10/21/19 09:17 Dose: 10 ml Documented by: Tolterodine Tartrate (Detrol La) 4 mg PO DAILY [facility] Last Admin: 10/21/19 09:03 Dose: 4 mg Documented by: Medical Necessity - Tobacco Use Smoking Status: Never smoker Assessment/Plan All Active Problems (Last Updated 03/15/19 @ 17:[address] Eris Jimenez MD) Anemia (Acute) Low back pain (Acute) Low back pain (Acute) History of DVT in adulthood (Acute) Severe sepsis (Acute) Community acquired pneumonia (Acute) AGUSTIN (acute kidney injury) (Acute) Abdominal pain (Acute) RECOMMENDATIONS: 1. Continue antimicrobials. Unclear if nausea secondary to Augmentin. Defer to primary service 2. Continue Tamiflu x5 days. 3. Encourage incentive spirometer use and mobilize patient as tolerated. 4. Repeat CT chest in 6 to 8 weeks following completion of treatment course for pneumonia. 5. Walking oximetry prior to discharge IMPRESSIONS: 1. Severe sepsis secondary to influenza B infection with concurrent pneumococcal pneumonia The patient has been adequately volume resuscitated and remains hemodynamically stable. Patient with pneumococcal antigen positive. Patient narrowed to Augmentin therapy, but it is unclear if this is the cause of patient's nausea. Would defer to primary service. Continue Tamiflu as ordered. Encourage incentive spirometer use and mobilize patient as tolerated. Patient will need a walking oximetry prior to discharge to ensure there is no desaturation given level of infiltrates noted on CT scan of the chest. 2. Abnormal CT scan of chest The patient does have a nodular density in the right middle lobe which is greater than 1 cm in size. The patient denies a personal smoking history. Given positive pneumococcal antigen, this may represent acute infection. I would recommend that a repeat CT chest be completed 6 to 8 weeks following completion of the patient's treatment for underlying pulmonary infectious process. This lesion may need to be biopsied at some point in the future. 3. Acute on chronic kidney disease/hypernatremia/hyperchloremia Improving. Likely prerenal in etiology. Continue to monitor urine output. No indication for renal replacement therapy at this time. Hypernatremia and hyperchloremia likely secondary to fluid resuscitation and are improving with p.o. diet. 4. Obesity/hypertension/neuropathy/rheumatoid arthritis Complicates care, management, recovery and prognosis. Continue home medications as indicated. Physical therapy to evaluate the patient. Inpatient E&M: 79254 Subs Hosp L2
[2019-10-22] MEDS: 0.9% Saline Lock 10 ML Syringe IV (10:15)
[2019-10-22] MEDS: Ondansetron 4 MG/2 ML Vial IV (10:15)
[2019-10-22] MEDS: hydrALAZINE 20 MG/ML Vial 10 MG IV (10:19)
[2019-10-22] MEDS: Enoxaparin 30 MG/0.3 ML Syringe SC (10:19)
[2019-10-22] MEDS: Atenolol 25 MG Tablet PO ×2 (11:25→21:28)
[2019-10-22] MEDS: Folic Acid 1 MG Tablet 0.5 MG PO (11:26)
[2019-10-22] MEDS: Gabapentin 100 MG Capsule PO ×2 (11:26→16:31)
[2019-10-22] MEDS: Aspirin 81 MG TAB.CHEW PO (11:26)
[2019-10-22] MEDS: Tolterodine Tartrate 4 MG CAP.SA PO (11:26)
[2019-10-22] MEDS: Oseltamivir Phosphate 30 MG Capsule PO (11:26)
[2019-10-22] MEDS: Ferrous Sulfate 325 MG Tablet PO (11:26)
[2019-10-22] MEDS: Hydroxychloroquine 200 MG Tablet PO ×2 (11:26→16:31)
[2019-10-22] MEDS: Multivitamins,Therapeutic Tablet 1 TABLET PO (11:26)
[2019-10-22] MEDS: Amox/Clavulanate 500 MG Tablet PO (11:26)
[2019-10-22] MEDS: Ipratropium/Albuterol Sulfate 3 ML AMPUL.NEB INHALATION ×3 (11:34→19:01)
--- NOTE | 2019-10-22 12:52 | PCM.PROGNOTE ---
<Misty Billingsley - Last Filed: 10/22/19 12:59> Patient Problems: Active and Suspected Problems (Last Updated 03/15/19 @ 17:[address] Eris Jimenez MD) Severe sepsis (Acute) Community acquired pneumonia (Acute) AGUSTIN (acute kidney injury) (Acute) Abdominal pain (Acute) Subjective: Patient seen and examined. Complains of nausea. No emesis. Denies abdominal pain. Denies other complaints. Refusing to work with therapy due to feeling ill. - Physical Exam Vitals/I&O's: Vital Signs Temp Pulse Resp BP Pulse Ox 98.9 F 89 16 174/75 H 95 10/22/19 10:12 10/22/19 11:58 10/22/19 11:34 10/22/19 10:19 10/22/19 10:15 Oxygen Delivery Method Room Air Weight: 199 lb 11.821 oz Body Mass Index (BMI) 36.9 Intake and Output for Last 24 Hours 10/20/19 10/21/19 10/22/19 23:59 23:59 23:59 Intake Total 2265.50 / 2265.50 1215 / 1215 240 / 240 Output Total 400 / 400 850 / 850 400 / 400 Balance 1865.50 / 1865.50 365 / 365 -160 / -160 General: Alert, Oriented x3, Cooperative HEENT: Atraumatic, PERRLA, EOMI, Normocephalic Neck: Supple, No JVD, Negative Carotid Bruits Lungs: Clear to auscultation, Diminished Cardiovascular: Regular rate, Regular Rhythm, Normal S1, Normal S2, No murmurs Abdomen: Bowel Sounds Present, Soft, Non Tender, Non-Distended Extremities: No clubbing, No cyanosis, No edema, Capillary Refill Less than 3 Seconds Skin: No rashes, No breakdown Musculoskeletal: No Tenderness to Palpation of Joints or Extremities Neurological: Cranial nerves II-XII grossly intact Psych/Mental Status: Normal Affect, Appropriate Microbiology Past 72 Hours 10/19/19 11:30 Urine, Catheterized Urine Culture - Final Culture exhibits no growth. 10/19/19 09:42 Blood Culture (Wb) - Venous Blood Culture - Preliminary No growth in 48 hours. 10/19/19 09:37 Blood Culture (Wb) - Anticubital Left Blood Culture - Preliminary No growth in 48 hours. 10/19/19 11:30 Urine, Random Streptococcus pneumoniae Antigen (M - Final Streptococcus pneumonia Ag 10/19/19 11:30 Urine, Random Legionella Antigen - Final 10/19/19 09:32 Mucosa - Nose Respiratory Panel (PCR) - Final Influenzae B 10/19/19 09:47 Mucosa - Nose Influenza Types A,B Direct FA (WILLIE) - Final Laboratory Results 10/22/19 05:32: WBC 6.6, RBC 3.43 L, Hgb 9.6 L, Hct 31.4 L, MCV 91.5, MCH 28.0, MCHC 30.6 L, RDW Std Deviation 57.1 H, RDW Coeff of Laxmi 16.9 H, Plt Count 216, MPV 9.8 10/22/19 05:32: Sodium 140, Potassium 4.4, Chloride 112 H, Carbon Dioxide 20.0 L, Anion Gap 8, BUN 17, Creatinine 1.33 H, Estim Creat Clear Calc 23.02, Est GFR (MDRD) Af Amer 49 L, Est GFR (MDRD) Non-Af 41 L, BUN/Creatinine Ratio 12.8, Glucose 96, Calcium 9.0 10/22/19 05:32: Phosphorus 2.9 Current Medications Hydrocodone Bitart/Acetaminophen ([place] 5mg-325mg) 1 tablet PO BID PRN PRN PRN Reason: Pain Score 6-10/10 Last Admin: 10/22/19 01:09 Dose: 1 tablet Documented by: Albuterol Sulfate (Ventolin Aerosols) 2.5 mg INHALATION Q2H PRN PRN PRN Reason: SOB/Wheezing Last Admin: 10/20/19 16:36 Dose: 2.5 mg Documented by: Albuterol/Ipratropium (Duoneb) 3 ml INHALATION Q4HWA.RT [facility] Last Admin: 10/22/19 11:34 Dose: 3 ml Documented by: Aspirin (Aspirin, Baby) 81 mg PO DAILY@0800 [facility] Last Admin: 10/22/19 11:26 Dose: 81 mg Documented by: Atenolol (Tenormin (Beta Kate)) 25 mg PO BID [facility] Last Admin: 10/22/19 11:25 Dose: 25 mg Documented by: Bisacodyl (Dulcolax) 10 mg RECTAL DAILY [facility] Cefdinir (Omnicef [Equiv]) 300 mg PO Q12 [facility] Diphenoxylate HCl/Atropine (Lomotil) 1 tablet PO TID PRN PRN PRN Reason: Diarrhea Enoxaparin Sodium (Lovenox) 30 mg SC DAILY [facility] Last Admin: 10/22/19 10:19 Dose: 30 mg Documented by: Ferrous Sulfate ([facility]ous Sulfate) [facility] Last Admin: 10/22/19 11:26 Dose: 325 mg Documented by: Folic Acid (Folic Acid) 0.5 mg PO DAILY@0800 [facility] Last Admin: 10/22/19 11:26 Dose: 0.5 mg Documented by: Gabapentin (Neurontin) [facility] Last Admin: 10/22/19 11:26 Dose: 100 mg Documented by: Glucagon () 1 mg IM .X1 PRN PRN Reason: Hypoglycemia Hydralazine HCl (Apresoline Iv) 10 mg IV Q4H PRN PRN PRN Reason: SBP > 160 Last Admin: 10/22/19 10:19 Dose: 10 mg Documented by: Hydroxychloroquine Sulfate (Plaquenil) [facility] Last Admin: 10/22/19 11:26 Dose: 200 mg Documented by: Dextrose (Dextrose 10%-Water) 250 mls @ 999 mls/hr IV .Q16M PRN; Protocol PRN Reason: HYPOGLYCEMIA Sodium Chloride () 250 mls @ 15 mls/hr IV .[id number] PRN PRN Reason: Saline Flush Last Infusion: 10/20/19 16:17 Dose: Infused Documented by: Sodium Chloride () 250 mls @ 15 mls/hr IV .[id number] PRN PRN Reason: Additional IVPB Infusion Melatonin (Melatonin) 3 mg PO QHS [facility] Last Admin: 10/21/19 22:10 Dose: 3 mg Documented by: Multivitamins (Multivitamin) [facility] Last Admin: 10/22/19 11:26 Dose: 1 tablet Documented by: Nystatin (Mycostatin Powder) 1 applic TOPICAL TID [facility]; Protocol Last Admin: 10/22/19 07:05 Dose: 1 applicatio Documented by: Ondansetron HCl (Zofran) 4 mg IV Q8H PRN PRN PRN Reason: NAUSEA/VOMITING Last Admin: 10/22/19 10:15 Dose: 4 mg Documented by: Oseltamivir Phosphate (Tamiflu) 30 mg PO DAILY [facility] Stop: 10/23/19 10:01 Last Admin: 10/22/19 11:26 Dose: 30 mg Documented by: Pramipexole Dihydrochloride (Mirapex) 0.25 mg PO QHS [facility] Last Admin: 10/21/19 22:10 Dose: 0.25 mg Documented by: Rizatriptan Benzoate (Maxalt) 10 mg PO .X1 PRN PRN PRN Reason: MIGRAINE Last Admin: 10/21/19 22:11 Dose: 10 mg Documented by: Sodium Chloride () 10 - 40 ml IV UD PRN PRN Reason: SALINE FLUSH Last Admin: 10/22/19 10:15 Dose: 20 ml Documented by: Tolterodine Tartrate (Detrol La) 4 mg PO DAILY [facility] Last Admin: 10/22/19 11:26 Dose: 4 mg Documented by: Medical Necessity - Tobacco Use Smoking Status: Never smoker Assessment/Plan All Active Problems (Last Updated 03/15/19 @ 17:[address] Eris Jimenez MD) Anemia (Acute) Low back pain (Acute) Low back pain (Acute) History of DVT in adulthood (Acute) Severe sepsis (Acute) Community acquired pneumonia (Acute) AGUSTIN (acute kidney injury) (Acute) Abdominal pain (Acute) 1. Severe sepsis secondary to acute influenza B and Streptococcus pneumonia-UTI ruled out. Continue Tamiflu course. Initially placed on IV Zosyn and IV vancomycin. Transition to oral Augmentin however patient having increased nausea. Switch to cefdinir. PRN antiemetic regimen. Oxygen stable on room air. Albuterol and DuoNeb aerosols. 2. Abnormal CT of chest-pulmonary medicine following. Patient will need repeat CT in 6 to 8 weeks. Nodular density right middle lobe but noted on CT. 3. Acute kidney injury on chronic kidney disease stage III-improved, trend BMP. 4. Hypertension-on atenolol. 5. Uzbk-xfqfqslxkbqqtj-eg hydrochloric when and gabapentin. 6. Chronic normocytic anemia- stable. DVT prophylaxis- Lovenox sc Discharge plan: Pending PT recommendations and resolve of nausea. This patient was seen by MELLY Carbone under the supervision of Dr. Jefferson. <Julianne Jefferson - Last Filed: 03/17/20 16:27> - Physical Exam Vitals/I&O's: Vital Signs Temp Pulse Resp BP Pulse Ox 98.9 F 79 16 174/75 H 95 10/22/19 10:12 10/22/19 15:30 10/22/19 14:32 10/22/19 10:19 10/22/19 10:15 Oxygen Delivery Method Room Air Weight: 90.6 kg Body Mass Index (BMI) 36.9 Intake and Output for Last 24 Hours 10/20/19 10/21/19 10/22/19 23:59 23:59 23:59 Intake Total 2265.50 / 2265.50 1215 / 1215 690 / 690 Output Total 400 / 400 850 / 850 800 / 800 Balance 1865.50 / 1865.50 365 / 365 -110 / -110 Microbiology Past 72 Hours 10/19/19 11:30 Urine, Catheterized Urine Culture - Final Culture exhibits no growth. 10/19/19 09:42 Blood Culture (Wb) - Venous Blood Culture - Preliminary No growth in 48 hours. 10/19/19 09:37 Blood Culture (Wb) - Anticubital Left Blood Culture - Preliminary No growth in 48 hours. 10/19/19 11:30 Urine, Random Streptococcus pneumoniae Antigen (M - Final Streptococcus pneumonia Ag 10/19/19 11:30 Urine, Random Legionella Antigen - Final 10/19/19 09:32 Mucosa - Nose Respiratory Panel (PCR) - Final Influenzae B Laboratory Results 10/22/19 05:32: WBC 6.6, RBC 3.43 L, Hgb 9.6 L, Hct 31.4 L, MCV 91.5, MCH 28.0, MCHC 30.6 L, RDW Std Deviation 57.1 H, RDW Coeff of Laxmi 16.9 H, Plt Count 216, MPV 9.8 10/22/19 05:32: Sodium 140, Potassium 4.4, Chloride 112 H, Carbon Dioxide 20.0 L, Anion Gap 8, BUN 17, Creatinine 1.33 H, Estim Creat Clear Calc 23.02, Est GFR (MDRD) Af Amer 49 L, Est GFR (MDRD) Non-Af 41 L, BUN/Creatinine Ratio 12.8, Glucose 96, Calcium 9.0 10/22/19 05:32: Phosphorus 2.9 Current Medications Hydrocodone Bitart/Acetaminophen ([place] 5mg-325mg) 1 tablet PO BID PRN PRN PRN Reason: Pain Score 6-10/10 Last Admin: 10/22/19 01:09 Dose: 1 tablet Documented by: Albuterol Sulfate (Ventolin Aerosols) 2.5 mg INHALATION Q2H PRN PRN PRN Reason: SOB/Wheezing Last Admin: 10/20/19 16:36 Dose: 2.5 mg Documented by: Albuterol/Ipratropium (Duoneb) 3 ml INHALATION Q4HWA.RT [facility] Last Admin: 10/22/19 14:32 Dose: 3 ml Documented by: Aspirin (Aspirin, Baby) 81 mg PO DAILY@0800 [facility] Last Admin: 10/22/19 11:26 Dose: 81 mg Documented by: Atenolol (Tenormin (Beta Kate)) 25 mg PO BID [facility] Last Admin: 10/22/19 11:25 Dose: 25 mg Documented by: Bisacodyl (Dulcolax) 10 mg RECTAL DAILY [facility] Last Admin: 10/22/19 13:21 Dose: 10 mg Documented by: Cefdinir (Omnicef [Equiv]) 300 mg PO Q12 [facility] Diphenoxylate HCl/Atropine (Lomotil) 1 tablet PO TID PRN PRN PRN Reason: Diarrhea Enoxaparin Sodium (Lovenox) 30 mg SC DAILY [facility] Last Admin: 10/22/19 10:19 Dose: 30 mg Documented by: Ferrous Sulfate (Ferrous Sulfate) [facility] Last Admin: 10/22/19 11:26 Dose: 325 mg Documented by: Folic Acid (Folic Acid) 0.5 mg PO DAILY@0800 [facility] Last Admin: 10/22/19 11:26 Dose: 0.5 mg Documented by: Gabapentin (Neurontin) [facility] Last Admin: 10/22/19 11:26 Dose: 100 mg Documented by: Glucagon () 1 mg IM .X1 PRN PRN Reason: Hypoglycemia Hydralazine HCl (Apresoline Iv) 10 mg IV Q4H PRN PRN PRN Reason: SBP > 160 Last Admin: 10/22/19 10:19 Dose: 10 mg Documented by: Hydroxychloroquine Sulfate (Plaquenil) [facility] Last Admin: 10/22/19 11:26 Dose: 200 mg Documented by: Dextrose (Dextrose 10%-Water) 250 mls @ 999 mls/hr IV .Q16M PRN; Protocol PRN Reason: HYPOGLYCEMIA Sodium Chloride () 250 mls @ 15 mls/hr IV .[id number] PRN PRN Reason: Saline Flush Last Infusion: 10/20/19 16:17 Dose: Infused Documented by: Sodium Chloride () 250 mls @ 15 mls/hr IV .[id number] PRN PRN Reason: Additional IVPB Infusion Melatonin (Melatonin) 3 mg PO QHS [facility] Last Admin: 10/21/19 22:10 Dose: 3 mg Documented by: Multivitamins (Multivitamin) 1 tablet PO DAILYCM [facility] Last Admin: 10/22/19 11:26 Dose: 1 tablet Documented by: Nystatin (Mycostatin Powder) 1 applic TOPICAL TID [facility]; Protocol Last Admin: 10/22/19 13:22 Dose: 1 applicatio Documented by: Ondansetron HCl (Zofran) 4 mg IV Q8H PRN PRN PRN Reason: NAUSEA/VOMITING Last Admin: 10/22/19 10:15 Dose: 4 mg Documented by: Oseltamivir Phosphate (Tamiflu) 30 mg PO DAILY [facility] Stop: 10/23/19 10:01 Last Admin: 10/22/19 11:26 Dose: 30 mg Documented by: Pramipexole Dihydrochloride (Mirapex) 0.25 mg PO QHS [facility] Last Admin: 10/21/19 22:10 Dose: 0.25 mg Documented by: Rizatriptan Benzoate (Maxalt) 10 mg PO .X1 PRN PRN PRN Reason: MIGRAINE Last Admin: 10/22/19 13:26 Dose: 10 mg Documented by: Sodium Chloride () 10 - 40 ml IV UD PRN PRN Reason: SALINE FLUSH Last Admin: 10/22/19 10:15 Dose: 20 ml Documented by: Tolterodine Tartrate (Detrol La) 4 mg PO DAILY [facility] Last Admin: 10/22/19 11:26 Dose: 4 mg Documented by: Assessment/Plan This patient was seen in conjunction with Misty Billingsley NP. I have independently interviewed and examined the patient and reviewed pertinent historical, laboratory, and other data. Please refer to her note for patient's presentation, findings, and recommendations. Patient was seen and examined. Complains of severe nausea. She feels anxious - having a panic attack probably at time of exam Denied any fever or chills or nausea or vomiting. No acute events overnight. Vitals were reviewed -stable Physical Exam: Gen: Obese, appears frail, not pale, not jaundiced, alert oriented x3, anxious, crying CVS:HS I +II, regular, no murmurs RESP: Diminished at lung bases GI: BS present and normal, nontender, no palpable organs EXT:No edema Labs reviewed: ASSESSMENT: 1. Severe sepsis secondary to acute influenza B/pneumonia/UTI 2. Streptococcal pneumonia 3. Acute influenza B bronchitis 4. Acute UTI 5. AGUSTIN on CKD stage III 6. Lung mass/nodule seen on CT of the chest 7. Probably anxiety disorder Meds reviewed Plan: Trial on ativan 1mg po x 1 Switch to cefdinir from Augmentin, will aim for a total of 1 week treatment Continue on Tamiflu Continue breathing treatments Follow-up with blood work in a.m. Inpatient E&M: 92495 Subs Hosp L2
[2019-10-22] MEDS: Bisacodyl 10 MG Suppository RECTAL (13:21)
[2019-10-22] MEDS: LORazepam 1 MG Tablet PO (13:21)
[2019-10-22] MEDS: Rizatriptan Benzoate 10 MG Tablet PO ×2 (13:26→21:28)
[2019-10-22] MEDS: Pramipexole Di-HCl 0.25 MG Tablet PO (21:27)
[2019-10-22] MEDS: MELATONIN 3 MG TABLET PO (21:30)
[2019-10-22] MEDS: Cefdinir 300 MG Capsule PO (21:32)
[2019-10-23] VITALS (11 sets, daily range): BP systolic 140–163; BP diastolic 63–99; PULSE 73–89; RESP 20–30; TEMP 36.7–36.9; O2SAT 89–97
[2019-10-23] MEDS: HYDROcodone Bitartrate/Apap 5/325 Tablet PO ×2 (03:29→09:17)
[2019-10-23] MEDS: Ipratropium/Albuterol Sulfate 3 ML AMPUL.NEB INHALATION ×3 (03:49→11:05)
[2019-10-23] MEDS: Nystatin Powder 15gm Bottle 1 APPLIC TOPICAL ×2 (05:25→13:52)
[2019-10-23 07:20] LABS: Anion Gap 7 (5-15); BUN 19 mg/dL (7-18); Chloride 115 mmol/L (98-107); Creatinine, Serum 1.27 mg/dL (0.55-1.02); EST Glomerular Filtration Rate 43 mL/min (>60); Est Glom Filt Rate - Afr Amer 52 mL/min (>60); Estimated Creatinine Clearance 24.11 ml/min; Glucose 86 mg/dL (74-106); Potassium 4.5 mmol/L (3.5-5.1); Sodium Level 143 mmol/L (136-145)
--- NOTE | 2019-10-23 07:36 | PN_ITS ---
Patient Problems: Active and Suspected Problems (Last Updated 03/15/19 @ 17:[address] Eris Jimenez MD) Severe sepsis (Acute) Community acquired pneumonia (Acute) AGUSTIN (acute kidney injury) (Acute) Abdominal pain (Acute) Subjective: Patient did okay overnight. Patient is tolerating room air and has been hemodynamically stable. Patient states her nausea is much improved compared to previous. Patient states I think I am strong enough to make it home. - Physical Exam Vitals/I&O's: Vital Signs Temp Pulse Resp BP Pulse Ox 36.7 C 73 23 H 146/63 H 96 10/23/19 05:08 10/23/19 06:46 10/23/19 05:08 10/23/19 05:08 10/23/19 05:08 Oxygen Delivery Method Room Air Weight: 88.5 kg Body Mass Index (BMI) 36.9 Intake and Output for Last 24 Hours 10/21/19 10/22/19 10/23/19 23:59 23:59 23:59 Intake Total 1215 / 1215 1140 / 1140 60 / 60 Output Total 850 / 850 1800 / 1800 270 / 270 Balance 365 / 365 -660 / -660 -210 / -210 General: Alert, Oriented x3, Cooperative, No apparent distress, - - Obese. No conversational dyspnea. HEENT: Atraumatic, PERRLA, EOMI, Normocephalic, - - No scleral icterus or injection noted Oral: Moist Mucosa, No Gingival or Mucosal Lesions/ Ulcerations Neck: Supple, No JVD, No Nodes, Trachea Midline Lungs: No rhonchi, No wheeze, No rales, Diminished, - - Symmetric expansion. Cardiovascular: Regular rate, Regular Rhythm, Normal S1, Normal S2, No murmurs, No rub noted, No Gallop Abdomen: Bowel Sounds Present, Soft, Non Tender, Non-Distended, Obese Extremities: No clubbing, No cyanosis, Capillary Refill Less than 3 Seconds, Edema - Trace to 1+ Skin: No rashes, No breakdown Musculoskeletal: No Tenderness to Palpation of Joints or Extremities Lymphatic: No Cervical, Supraclavicular, or Inguinal Adenopathy Neurological: Cranial nerves II-XII grossly intact, Neuro grossly intact, Motor Exam 5/5 strength throughout Psych/Mental Status: Alert and oriented to time, place, person, mood and affect Microbiology Past 72 Hours 10/19/19 11:30 Urine, Catheterized Urine Culture - Final Culture exhibits no growth. 10/19/19 09:42 Blood Culture (Wb) - Venous Blood Culture - Preliminary No growth in 48 hours. 10/19/19 09:37 Blood Culture (Wb) - Anticubital Left Blood Culture - Preliminary No growth in 48 hours. 10/19/19 11:30 Urine, Random Streptococcus pneumoniae Antigen (M - Final Streptococcus pneumonia Ag 10/19/19 11:30 Urine, Random Legionella Antigen - Final Laboratory Results 10/23/19 06:55: Sodium 143, Potassium 4.5, Chloride 115 H, Carbon Dioxide 21.0, Anion Gap 7, BUN 19 H, Creatinine 1.27 H, Estim Creat Clear Calc 24.11, Est GFR (MDRD) Af Amer 52 L, Est GFR (MDRD) Non-Af 43 L, BUN/Creatinine Ratio 15.0, Glucose 86, Calcium 9.0 Current Medications Hydrocodone Bitart/Acetaminophen ([place] 5mg-325mg) 1 tablet PO BID PRN PRN PRN Reason: Pain Score 6-10/10 Last Admin: 10/23/19 03:29 Dose: 1 tablet Documented by: Albuterol Sulfate (Ventolin Aerosols) 2.5 mg INHALATION Q2H PRN PRN PRN Reason: SOB/Wheezing Last Admin: 10/20/19 16:36 Dose: 2.5 mg Documented by: Albuterol/Ipratropium (Duoneb) 3 ml INHALATION Q4HWA.RT [facility] Last Admin: 10/23/19 06:59 Dose: 3 ml Documented by: Aspirin (Aspirin, Baby) 81 mg PO DAILY@0800 [facility] Last Admin: 10/22/19 11:26 Dose: 81 mg Documented by: Atenolol (Tenormin (Beta Kate)) 25 mg PO BID [facility] Last Admin: 10/22/19 21:28 Dose: 25 mg Documented by: Bisacodyl (Dulcolax) 10 mg RECTAL DAILY [facility] Last Admin: 10/22/19 13:21 Dose: 10 mg Documented by: Cefdinir (Omnicef [Equiv]) 300 mg PO Q12 [facility] Last Admin: 10/22/19 21:32 Dose: 300 mg Documented by: Diphenoxylate HCl/Atropine (Lomotil) 1 tablet PO TID PRN PRN PRN Reason: Diarrhea Enoxaparin Sodium (Lovenox) 30 mg SC DAILY [facility] Last Admin: 10/22/19 10:19 Dose: 30 mg Documented by: [facility]ous Sulf[facility] ([facility] S[facility]ate) [facility] Last Admin: 10/22/19 11:26 Dose: 325 mg Documented by: Folic Acid (Folic Acid) 0.5 mg PO DAILY@0800 [facility] Last Admin: 10/22/19 11:26 Dose: 0.5 mg Documented by: Gabapentin ([facility]in) [facility] Last Admin: 10/22/19 16:31 Dose: 100 mg Documented by: Glucagon () 1 mg IM .X1 PRN PRN Reason: Hypoglycemia Hydralazine HCl (Apresoline Iv) 10 mg IV Q4H PRN PRN PRN Reason: SBP > 160 Last Admin: 10/22/19 10:19 Dose: 10 mg Documented by: Hydroxychloroquine Sulfate ([facility]aquenil) [facility] Last Admin: 10/22/19 16:31 Dose: 200 mg Documented by: Dextrose (Dextrose 10%-Water) 250 mls @ 999 mls/hr IV .Q16M PRN; Protocol PRN Reason: HYPOGLYCEMIA Sodium Chloride () 250 mls @ 15 mls/hr IV .[id number] PRN PRN Reason: Saline Flush Last Infusion: 10/20/19 16:17 Dose: Infused Documented by: Sodium Chloride () 250 mls @ 15 mls/hr IV .[id number] PRN PRN Reason: Additional IVPB Infusion Melatonin (Melatonin) 3 mg PO QHS [facility] Last Admin: 10/22/19 21:30 Dose: 3 mg Documented by: Multivitamins ([facility]ivitamin) [facility] Last Admin: 10/22/19 11:26 Dose: 1 tablet Documented by: Nystatin (Mycostatin Powder) 1 applic TOPICAL TID [facility]; Protocol Last Admin: 10/23/19 05:25 Dose: 1 applicatio Documented by: Ondansetron HCl (Zofran) 4 mg IV Q8H PRN PRN PRN Reason: NAUSEA/VOMITING Last Admin: 10/22/19 10:15 Dose: 4 mg Documented by: Oseltamivir Phosphate (Tamiflu) 30 mg PO DAILY [facility] Stop: 10/23/19 10:01 Last Admin: 10/22/19 11:26 Dose: 30 mg Documented by: Pramipexole Dihydrochloride (Mirapex) 0.25 mg PO QHS [facility] Last Admin: 10/22/19 21:27 Dose: 0.25 mg Documented by: Rizatriptan Benzoate (Maxalt) 10 mg PO .X1 PRN PRN PRN Reason: MIGRAINE Last Admin: 10/22/19 21:28 Dose: 10 mg Documented by: Sodium Chloride () 10 - 40 ml IV UD PRN PRN Reason: SALINE FLUSH Last Admin: 10/22/19 10:15 Dose: 20 ml Documented by: Tolterodine Tartrate (Detrol La) 4 mg PO DAILY [facility] Last Admin: 10/22/19 11:26 Dose: 4 mg Documented by: Medical Necessity - Tobacco Use Smoking Status: Never smoker Assessment/Plan All Active Problems (Last Updated 03/15/19 @ 17:[address] Eris Jimenez MD) Anemia (Acute) Low back pain (Acute) Low back pain (Acute) History of DVT in adulthood (Acute) Severe sepsis (Acute) Community acquired pneumonia (Acute) AGUSTIN (acute kidney injury) (Acute) Abdominal pain (Acute) RECOMMENDATIONS: 1. Complete 7 days of antibiotics 2. Continue Tamiflu x5 days. 3. Encourage incentive spirometer use and mobilize patient as tolerated. 4. Repeat CT chest in 6 to 8 weeks following completion of treatment course for pneumonia. 5. Walking oximetry prior to discharge 6. Okay to have patient follow-up with nurse practitioner 2 weeks after discharge IMPRESSIONS: 1. Severe sepsis secondary to influenza B infection with concurrent pneumococcal pneumonia The patient has been adequately volume resuscitated and remains hemodynamically stable. Patient with pneumococcal antigen positive. Patient's nausea much improved following transition to Omnicef. Continue Tamiflu as ordered. Encourage incentive spirometer use and mobilize patient as tolerated. Patient will need a walking oximetry prior to discharge to ensure there is no desaturation given level of infiltrates noted on CT scan of the chest. 2. Abnormal CT scan of chest The patient does have a nodular density in the right middle lobe which is greater than 1 cm in size. The patient denies a personal smoking history. Given positive pneumococcal antigen, this may represent acute infection. I would recommend that a repeat CT chest be completed 6 to 8 weeks following completion of the patient's treatment for underlying pulmonary infectious process. This lesion may need to be biopsied at some point in the future. 3. Acute on chronic kidney disease/hypernatremia/hyperchloremia Improving. Likely prerenal in etiology. Continue to monitor urine output. No indication for renal replacement therapy at this time. Hypernatremia and hyperchloremia likely secondary to fluid resuscitation and are improving with p.o. diet. 4. Obesity/hypertension/neuropathy/rheumatoid arthritis Complicates care, management, recovery and prognosis. Continue home medications as indicated. Physical therapy to evaluate the patient. Inpatient E&M: 69598 Subs Hosp L2
[2019-10-23] MEDS: Folic Acid 1 MG Tablet 0.5 MG PO (08:21)
[2019-10-23] MEDS: Gabapentin 100 MG Capsule PO (08:21)
[2019-10-23] MEDS: Aspirin 81 MG TAB.CHEW PO (08:22)
[2019-10-23] MEDS: Hydroxychloroquine 200 MG Tablet PO (08:22)
[2019-10-23] MEDS: Ferrous Sulfate 325 MG Tablet PO (08:22)
[2019-10-23] MEDS: Multivitamins,Therapeutic Tablet 1 TABLET PO (08:22)
[2019-10-23] MEDS: Bisacodyl 10 MG Suppository RECTAL (09:16)
[2019-10-23] MEDS: Cefdinir 300 MG Capsule PO (09:17)
[2019-10-23] MEDS: Tolterodine Tartrate 4 MG CAP.SA PO (09:17)
[2019-10-23] MEDS: Enoxaparin 30 MG/0.3 ML Syringe SC (09:17)
[2019-10-23] MEDS: Atenolol 25 MG Tablet PO (09:17)
[2019-10-23] MEDS: Oseltamivir Phosphate 30 MG Capsule PO (09:18)
--- NOTE | 2019-10-23 09:49 | DCINST_ITS ---
- Discharge Diagnoses Current Active Problems: Current Active and Chronic Problems (Last Updated 03/15/19 @ 17:[address] Eris Jimenez MD) Severe sepsis (Acute) Community acquired pneumonia (Acute) AGUSTIN (acute kidney injury) (Acute) Abdominal pain (Acute) Reason(s) for Visit for Discharge Instructions: Shortness of breath You will use the following diet at home:: Cardiac Your food should be the consistency of: Regular Your liquids should be the consistency of: Regular/Thin Discharge Activity: Return to Normal Activity Additional Instructions: Continue to use your incentive spirometer. Continue to remain active. Complete your antibiotics. Use your inhaler as needed for shortness of breath. Allergies/Adverse Reactions: Allergies No Known Allergies Allergy (Verified 10/19/19 09:21) Medications to take at Discharge Diphenoxylate HCl/Atropine [Lomotil 2.5-0.025 mg Tablet] 2.5 mg PO TID PRN PRN 02/16/14 Atenolol [Tenormin (beta tyler)] 25 mg PO BID 06/09/15 Hydroxychloroquine [Plaquenil] 200 mg PO BID 06/09/15 Ropinirole HCl [Requip] 0.5 mg PO QHS 06/09/15 Sumatriptan Succinate [Imitrex] 100 mg PO .X1 PRN MDD MIGRAINE 06/09/15 Gabapentin [Neurontin] 100 mg PO BID 09/20/16 Multivitamins,Therapeutic [Multivitamin] 1 tablet PO DAILY 01/29/18 Hydrocodone/Acetaminophen [[place] 5-325 Tablet] 1 each PO BID PRN PRN 03/09/18 Folic Acid 400 mg PO DAILY@0800 07/21/18 Furosemide [Lasix] 20 mg PO DAILY PRN PRN 07/21/18 Ferrous Sulfate [Iron] 325 mg PO DAILY 10/19/19 Potassium 99 mg PO DAILY 10/19/19 Solifenacin Succinate [Vesicare] 10 mg PO DAILY 10/19/19 Albuterol IH (ProAir) [Proair Hfa] 1 - 2 puff INHALATION Q4H PRN PRN #1 inhaler 10/23/19 Aspirin [Aspirin, Baby] 81 mg PO DAILY@0800 30 Days #30 tab.chew 10/23/19 Cefdinir [Omnicef [equiv]] 300 mg PO Q12 #9 cap 10/23/19 Nystatin Powder [Mycostatin Powder] 1 applic TOPICAL TID #1 bottle 10/23/19 The following prescriptions were given: Aspirin [Aspirin, Baby] 81 mg PO DAILY@0800 30 Days #30 tab.chew Transmission Status: [id number] Nystatin Powder [Mycostatin Powder] 1 applic TOPICAL TID #1 bottle Transmission Status: Received by [id number] Cefdinir [Omnicef [equiv]] 300 mg PO Q12 #9 cap Transmission Status: Received by [id number] Albuterol IH (ProAir) [Proair Hfa] 1 - 2 puff INHALATION Q4H PRN PRN #1 inhaler PRN Reason: Sob &/Or Wheezing Transmission Status: Received by [id number] Primary Care Physician: Candice Amado DO [Primary Care Provider] - Please follow up with your Primary Care Physician in: within 1-2 weeks Test Results: Test results from this visit will be discussed in further detail at your follow- up appointment, if applicable. Please Follow Up With: Fabian Mackenzie DO When: in 4-[address] scan of chest Please Follow Up With: Khalida Villalpando NP-C When: within 2 weeks Proposed Discharge Date: 10/23/19
[2019-10-23] MEDS: Rizatriptan Benzoate 10 MG Tablet PO (10:23)
--- NOTE | 2019-10-23 10:27 | CASEMGMT ---
SW spoke with patient and inquired if she would like home health. She said she would. SW left her a list of local agencies and told her SW will stop back by to see which agency she would prefer. Marbella MADISON
--- NOTE | 2019-10-23 11:51 | CASEMGMT ---
Ths [facility] CM to room and pt states no preference on HHC at this time. Pt is agreeable to [facility] for SN, PT/OT at this time and order placed for same at this time. Message left with Khushbu at [facility] in regards to referral/discharge at this time. Pt provided with [facility] pamphlet at this time. Pt states is normally homebound and states that her son/daughter do live with her. Pt voices no further questions/concerns/needs at this time. Pt does not qualify for home oxygen at this time. Pt is awaiting discharge. Savage WILKINSON CM
--- NOTE | 2019-10-23 11:57 | PHA.DC.MR ---
Pharmacy Service has performed discharge medication reconciliation for this patient. The patient's discharge medication list was reviewed for discrepancies and discrepancies were resolved. Home Medications Diphenoxylate HCl/Atropine [Lomotil 2.5-0.025 mg Tablet] 2.5 mg PO TID PRN PRN 02/16/14 Atenolol [Tenormin (beta tyler)] 25 mg PO BID 06/09/15 Hydroxychloroquine [Plaquenil] 200 mg PO BID 06/09/15 Ropinirole HCl [Requip] 0.5 mg PO QHS 06/09/15 Sumatriptan Succinate [Imitrex] 100 mg PO .X1 PRN MDD MIGRAINE 06/09/15 Gabapentin [Neurontin] 100 mg PO BID 09/20/16 Multivitamins,Therapeutic [Multivitamin] 1 tablet PO DAILY 01/29/18 Hydrocodone/Acetaminophen [[place] 5-325 Tablet] 1 each PO BID PRN PRN 03/09/18 Folic Acid 400 mg PO DAILY@0800 07/21/18 Furosemide [Lasix] 20 mg PO DAILY PRN PRN 07/21/18 Ferrous Sulfate [Iron] 325 mg PO DAILY 10/19/19 Potassium 99 mg PO DAILY 10/19/19 Solifenacin Succinate [Vesicare] 10 mg PO DAILY 10/19/19 Albuterol IH (ProAir) [Proair Hfa] 1 - 2 puff INHALATION Q4H PRN PRN #1 inhaler 10/23/19 Aspirin [Aspirin, Baby] 81 mg PO DAILY@0800 30 Days #30 tab.chew 10/23/19 Cefdinir [Omnicef [equiv]] 300 mg PO Q12 #9 cap 10/23/19 Nystatin Powder [Mycostatin Powder] 1 applic TOPICAL TID #1 bottle 10/23/19
--- NOTE | 2019-10-23 13:17 | PCM.DC.SUM ---
Discharge Date and Diagnosis Date of Admission: 10/19/19 Date of Discharge: 10/23/19 - Primary Discharge Diagnosis Active and Suspected Problems (Last Updated 03/15/19 @ 17:[address] Eris Jimenez MD) Severe sepsis secondary to acute influenza B/Streptococcus pneumonia/UTI Abnormal CT of the chest/lung mass AGUSTIN on CKD stage III - Secondary Discharge Diagnosis Chronic Problems (Last Updated 03/15/19 @ 17:[address] Eris Jimenez MD) Spondylosis of lumbar region without myelopathy or radiculopathy (Chronic) Rheumatoid arthritis (Chronic) Migraine (Chronic) Asthma (Chronic) Hiatal hernia (Chronic) Hospital Course and Treatment Imaging Results: Clinical Impression(s) from Imaging Studies Abdomen/Pelvis CT 10/19/19 09:31 IMPRESSION: Hiatal hernia. Colonic diverticulosis. Nodular densities in the lung bases as noted. Increasing interstitial prominence/fibrosis. Electronically Signed: Moncho Jimenez DO at 12:01 EDT Tel [phone], Service support , Chest X-Ray 10/19/19 10:40 IMPRESSION: Cardiomegaly. Right upper lobe infiltrate. Probable hiatal hernia. Electronically Signed: Moncho Jimenez DO at 10:59 EDT Tel [phone], Service support , Chest CT 10/19/19 12:24 IMPRESSION: 1. Right upper lobe and lingular airspace disease suggesting pneumonia. 2. Increased size of nodule in the right middle lobe currently measuring 1.2 cm (previous measurement 0.8 cm). NEOPLASM SHOULD BE CONSIDERED. PET scan and/or biopsy suggested. 3. Mildly worse pulmonary fibrosis. Electronically Signed: Dennis Razo MD ([place]) at 13:40 EDT , Service support , Chest X-Ray 10/20/19 05:55 IMPRESSION: Stable cardiomegaly and patchy airspace disease Electronically Signed: Stef Mendez DO at 7:53 EDT Tel , Service support , Pulmonology Operations: None Procedures: None Summary of Care Provided: The patient is a 84 year old F past medical history of rheumatoid arthritis admitted with abdominal pain and cough ongoing for days. Patient was found to be febrile in the ED with temperature 101.5 F, her lactic acid was 3.3. She was seen to have an infiltrate in the right upper lobe. CT of the chest showed abnormal right middle lobe nodule suspicious for malignancy. She was managed as severe sepsis secondary to community-acquired pneumonia as well as UTI. Work-up showed acute influenza B found respiratory panel, urine streptococcal antigen was positive. Patient initially was managed on broad-spectrum antibiotics and later on narrowed down. She continued to improve and was transferred to the progressive care unit. A day before discharge, patient had a panic attack that resolved with a low dose of Ativan as well as reassurance. She was seen by PT and OT and home health was recommended. Patient was discharged on cefdinir. Patient also had acute kidney injury which improved with hydration during this hospital stay. She has underlying CKD stage III. She will follow-up with the director of development and marketing in clinic for repeat CT scan in 6 to 8 weeks to follow-up on a lung mass. Subjective: The day of discharge, patient was seen and examined. She felt much improved. She did not qualify for oxygen on ambulation. Patient stated that she has oxygen at home however. Objective: Physical exam: General: Alert, Oriented x3, Cooperative HEENT: Atraumatic, PERRLA, EOMI, Normocephalic Neck: Supple, No JVD, Negative Carotid Bruits Lungs: Clear to auscultation, Diminished Cardiovascular: Regular rate, Regular Rhythm, Normal S1, Normal S2, No murmurs Abdomen: Bowel Sounds Present, Soft, Non Tender, Non-Distended Extremities: No clubbing, No cyanosis, No edema, Capillary Refill Less than 3 Seconds Skin: No rashes, No breakdown Musculoskeletal: No Tenderness to Palpation of Joints or Extremities Neurological: Cranial nerves II-XII grossly intact Psych/Mental Status: Normal Affect, Appropriate - Physical Exam Vitals/I&O's: Vital Signs Temp Pulse Resp BP Pulse Ox 98.1 F 76 20 H 145/99 H 97 10/23/19 09:14 10/23/19 11:06 10/23/19 11:06 10/23/19 09:14 10/23/19 09:14 Oxygen Delivery Method Room Air Weight: 88.5 kg Body Mass Index (BMI) 36.9 Intake and Output for Last 24 Hours 10/21/19 10/22/19 10/23/19 23:59 23:59 23:59 Intake Total 1215 / 1215 1140 / 1140 160 / 160 Output Total 850 / 850 1800 / 1800 570 / 570 Balance 365 / 365 -660 / -660 -410 / -410 Microbiology Past 72 Hours 10/19/19 11:30 Urine, Catheterized Urine Culture - Final Culture exhibits no growth. 10/19/19 09:42 Blood Culture (Wb) - Venous Blood Culture - Preliminary No growth in 48 hours. 10/19/19 09:37 Blood Culture (Wb) - Anticubital Left Blood Culture - Preliminary No growth in 48 hours. 10/19/19 11:30 Urine, Random Streptococcus pneumoniae Antigen (M - Final Streptococcus pneumonia Ag 10/19/19 11:30 Urine, Random Legionella Antigen - Final Laboratory Results 10/23/19 06:55: Sodium 143, Potassium 4.5, Chloride 115 H, Carbon Dioxide 21.0, Anion Gap 7, BUN 19 H, Creatinine 1.27 H, Estim Creat Clear Calc 24.11, Est GFR (MDRD) Af Amer 52 L, Est GFR (MDRD) Non-Af 43 L, BUN/Creatinine Ratio 15.0, Glucose 86, Calcium 9.0 Current Medications Hydrocodone Bitart/Acetaminophen ([place] 5mg-325mg) 1 tablet PO BID PRN PRN PRN Reason: Pain Score 6-10/10 Last Admin: 10/23/19 09:17 Dose: 1 tablet Documented by: Albuterol Sulfate (Ventolin Aerosols) 2.5 mg INHALATION Q2H PRN PRN PRN Reason: SOB/Wheezing Last Admin: 10/20/19 16:36 Dose: 2.5 mg Documented by: Albuterol/Ipratropium (Duoneb) 3 ml INHALATION Q4HWA.RT [facility] Last Admin: 10/23/19 11:05 Dose: 3 ml Documented by: Aspirin (Aspirin, Baby) 81 mg PO DAILY@0800 [facility] Last Admin: 10/23/19 08:22 Dose: 81 mg Documented by: Atenolol (Tenormin (Beta Kate)) 25 mg PO BID [facility] Last Admin: 10/23/19 09:17 Dose: 25 mg Documented by: Bisacodyl (Dulcolax) 10 mg RECTAL DAILY [facility] Last Admin: 10/23/19 09:16 Dose: 10 mg Documented by: Cefdinir (Omnicef [Equiv]) 300 mg PO Q12 [facility] Last Admin: 10/23/19 09:17 Dose: 300 mg Documented by: Diphenoxylate HCl/Atropine (Lomotil) 1 tablet PO TID PRN PRN PRN Reason: Diarrhea Enoxaparin Sodium (Lovenox) 30 mg SC DAILY [facility] Last Admin: 10/23/19 09:17 Dose: 30 mg Documented by: Ferrous Sulfate (Ferrous Sulfate) [facility] Last Admin: 10/23/19 08:22 Dose: 325 mg Documented by: Folic Acid (Folic Acid) 0.5 mg PO DAILY@0800 [facility] Last Admin: 10/23/19 08:21 Dose: 0.5 mg Documented by: Gabapentin (Neurontin) 100 [facility] Last Admin: 10/23/19 08:21 Dose: 100 mg Documented by: Glucagon () 1 mg IM .X1 PRN PRN Reason: Hypoglycemia Hydralazine HCl (Apresoline Iv) 10 mg IV Q4H PRN PRN PRN Reason: SBP > 160 Last Admin: 10/22/19 10:19 Dose: 10 mg Documented by: Hydroxychloroquine Sulfate (Plaquenil) [facility] Last Admin: 10/23/19 08:22 Dose: 200 mg Documented by: Dextrose (Dextrose 10%-Water) 250 mls @ 999 mls/hr IV .Q16M PRN; Protocol PRN Reason: HYPOGLYCEMIA Sodium Chloride () 250 mls @ 15 mls/hr IV .[id number] PRN PRN Reason: Saline Flush Last Infusion: 10/20/19 16:17 Dose: Infused Documented by: Sodium Chloride () 250 mls @ 15 mls/hr IV .[id number] PRN PRN Reason: Additional IVPB Infusion Melatonin (Melatonin) 3 mg PO QHS [facility] Last Admin: 10/22/19 21:30 Dose: 3 mg Documented by: Multivitamins (Multivitamin) 1 tablet [facility] Last Admin: 10/23/19 08:22 Dose: 1 tablet Documented by: Nystatin (Mycostatin Powder) 1 applic TOPICAL TID [facility]; Protocol Last Admin: 10/23/19 05:25 Dose: 1 applicatio Documented by: Ondansetron HCl (Zofran) 4 mg IV Q8H PRN PRN PRN Reason: NAUSEA/VOMITING Last Admin: 10/22/19 10:15 Dose: 4 mg Documented by: Pramipexole Dihydrochloride (Mirapex) 0.25 mg PO QHS [facility] Last Admin: 10/22/19 21:27 Dose: 0.25 mg Documented by: Rizatriptan Benzoate (Maxalt) 10 mg PO .X1 PRN PRN PRN Reason: MIGRAINE Last Admin: 10/23/19 10:23 Dose: 10 mg Documented by: Sodium Chloride () 10 - 40 ml IV UD PRN PRN Reason: SALINE FLUSH Last Admin: 10/22/19 10:15 Dose: 20 ml Documented by: Tolterodine Tartrate (Detrol La) 4 mg PO DAILY [facility] Last Admin: 10/23/19 09:17 Dose: 4 mg Documented by: Discharge Diet: Low fat/ Low Cholesterol, 2000 mg Sodium Diet Discharge Activity: Return to Normal Activity Home Medications: Medications to take at Discharge Diphenoxylate HCl/Atropine [Lomotil 2.5-0.025 mg Tablet] 2.5 mg PO TID PRN PRN 02/16/14 Atenolol [Tenormin (beta kate)] 25 mg PO BID 06/09/15 Hydroxychloroquine [Plaquenil] 200 mg PO BID 06/09/15 Ropinirole HCl [Requip] 0.5 mg PO QHS 06/09/15 Sumatriptan Succinate [Imitrex] 100 mg PO .X1 PRN MDD MIGRAINE 06/09/15 Gabapentin [Neurontin] 100 mg PO BID 09/20/16 Multivitamins,Therapeutic [Multivitamin] 1 tablet PO DAILY 01/29/18 Hydrocodone/Acetaminophen [[place] 5-325 Tablet] 1 each PO BID PRN PRN 03/09/18 Folic Acid 400 mg PO DAILY@0800 07/21/18 Furosemide [Lasix] 20 mg PO DAILY PRN PRN 07/21/18 Ferrous Sulfate [Iron] 325 mg PO DAILY 10/19/19 Potassium 99 mg PO DAILY 10/19/19 Solifenacin Succinate [Vesicare] 10 mg PO DAILY 10/19/19 Albuterol IH (ProAir) [Proair Hfa] 1 - 2 puff INHALATION Q4H PRN PRN #1 inhaler 10/23/19 Aspirin [Aspirin, Baby] 81 mg PO DAILY@0800 30 Days #30 tab.chew 10/23/19 Cefdinir [Omnicef [equiv]] 300 mg PO Q12 #9 cap 10/23/19 Nystatin Powder [Mycostatin Powder] 1 applic TOPICAL TID #1 bottle 10/23/19 Following Prescrptions Were Given to Patient: Aspirin [Aspirin, Baby] 81 mg PO DAILY@0800 30 Days #30 tab.chew Transmission Status: Received by [facility] Nystatin Powder [Mycostatin Powder] 1 applic TOPICAL TID #1 bottle Transmission Status: Received by [facility] Cefdinir [Omnicef [equiv]] 300 mg PO Q12 #9 cap Transmission Status: Received by [facility] Albuterol IH (ProAir) [Proair Hfa] 1 - 2 puff INHALATION Q4H PRN PRN #1 inhaler PRN Reason: Sob &/Or Wheezing Transmission Status: Received by [facility] Primary Care Physician: Candice Amado DO [Primary Care Provider] - Please follow up with your Primary Care Physician in: within 1-2 weeks Please Follow Up With: Fabian Mackenzie DO When: in 4-[address] scan of chest Please Follow Up With: Khalida Villalpando NP-C When: within 2 weeks Please Follow Up With: Candice Amado DO Disposition: Home with Home Health Minutes spent on discharge:: 38 Patient Condition:: Stable Medical Necessity - Tobacco Use Smoking Status: Never smoker Tobacco Use: Non-smoker Meaningful Use Info Meaningful Use Diagnoses (Choose all that apply): None applicable Inpatient E&M: 44135 Disch Hosp
== END 2019-10-23 14:38 | disposition home or self-care (01) | DRG 871 ==
LOC: ED 12:43 → ICU 13:08 → PCU 10-20 19:45
PROVIDERS: Internal Medicine Critical Care Medicine; Nurse Practitioner Family; Admitting Provider Student in an Organized Health Care Education/Training Program; Emergency Provider Physician Assistant Medical; PCP Internal Medicine; Visit Provider Internal Medicine
DX: A41.9 Sepsis, unspecified organism (principal); J11.08 Influenza due to unidentified influenza virus with specified pneumonia; J15.4 Pneumonia due to other streptococci; N39.0 Urinary tract infection, site not specified; N17.9 Acute kidney failure, unspecified; E87.2 Acidosis; B95.3 Streptococcus pneumoniae as the cause of diseases classified elsewhere; R65.20 Severe sepsis without septic shock; R91.8 Other nonspecific abnormal finding of lung field; I13.10 Hypertensive heart and chronic kidney disease without heart failure, with stage 1 through stage 4 chronic kidney disease, or unspecified chronic kidney disease; N18.3 Chronic kidney disease, stage 3 (moderate); D63.1 Anemia in chronic kidney disease; M47.816 Spondylosis without myelopathy or radiculopathy, lumbar region; M06.9 Rheumatoid arthritis, unspecified; F41.0 Panic disorder [episodic paroxysmal anxiety]; G62.9 Polyneuropathy, unspecified; G43.909 Migraine, unspecified, not intractable, without status migrainosus; M15.9 Polyosteoarthritis, unspecified; J45.909 Unspecified asthma, uncomplicated; K44.9 Diaphragmatic hernia without obstruction or gangrene; E66.9 Obesity, unspecified; Z68.37 Body mass index [BMI] 37.0-37.9, adult; Z79.899 Other long term (current) drug therapy
CPT/HCPCS: 36415; 36600; 71045; 71250; 74176; 80048; 80053; 80202; 81001; 82803; 83605; 84100; 84484; 85025; 85027; 85610; 85730; 87040; 87086; 87449; 87633; 87641; 87804; 93005; 93306; 94640; 94762; 97110; 97116; 97162; 97166; 97530; 97535; 99285; J7030; J7040; J7050; P9612; Q9957; A4216; C8929; J2405

== ENCOUNTER → 2019-11-15 | Outpatient (CLI) | payer MEDICARE, BC, SELFPAY ==
[2019-11-12 08:07] VITALS: BMI 36.9
[2019-11-15 15:40] LABS: Anion Gap 6 (5-15); BUN 28 mg/dL (7-18); BUN/Creat Ratio 12.6 RATIO (10-20); Calcium,Total 8.9 mg/dL (8.5-10.1); Chloride 107 mmol/L (98-107); Creatinine, Serum 2.23 mg/dL (0.55-1.02); EST Glomerular Filtration Rate 22 mL/min (>60); Est Glom Filt Rate - Afr Amer 27 mL/min (>60); Glucose 121 mg/dL (74-106); Potassium 3.9 mmol/L (3.5-5.1); Sodium Level 141 mmol/L (136-145)
== END | disposition home or self-care (01) ==
LOC: LABSPEC 12:01
PROVIDERS: PCP Internal Medicine; Referring Provider Internal Medicine; Visit Provider Internal Medicine
DX: A41.89 Other specified sepsis (principal); J10.08 Influenza due to other identified influenza virus with other specified pneumonia; J13 Pneumonia due to Streptococcus pneumoniae; Z51.81 Encounter for therapeutic drug level monitoring
CPT/HCPCS: 80048; 87040

== ENCOUNTER → 2019-12-24 14:08 | Outpatient (CLI) | payer MEDICARE, BC, SELFPAY ==
[2019-11-12 08:07] VITALS: BMI 36.9
--- NOTE | 2019-12-24 14:10 | CT_ITS ---
STUDY: CT CHEST/THORAX WITHOUT CONTRAST REASON FOR EXAM: Female, 84 years old. RESOLVING PNEUMONIA, NON SMOKER, HTN RADIATION DOSAGE (If Supplied By Facility): CTDIvol = ( 20.11 ) mGy, DLP = ( 612.15 ) mGycm TECHNIQUE: Transaxial imaging was performed without the administration of intravenous contrast material. Multiplanar coronal and sagittal images were reformatted. Individualized dose optimization techniques were used for this CT. COMPARISON: CT chest without contrast October 19, 2019. Portable AP chest x-ray October 20, 2019 not available for comparison at the time of this dictation, but report for that study was reviewed. FINDINGS: The consolidating infiltrate previously seen in the inferolateral right lobe is nearly fully cleared, with some residual minor density. Subsegmental airspace disease along the medial periphery of the basilar right lower lobe also is improved, as is minor subsegmental density in the medial periphery of the right middle lobe. A 10 mm nodular density in the medial inferior aspect of the right middle lobe (series 4 image 141, series 602 image 76) is likely stable, but better defined today. The subsegmental airspace disease in the lateral left midlung also is notably improved. There is minor residual stranding density in the lingula, as well as some coarsened interstitial densities in the lateral periphery of the apical to mid left upper lobe and left lower lobe at the mid chest. A 5 mm nodular density in the posterolateral left lower lobe on series 4 image 102, series 602 image 41 is unchanged. There is no demonstrated pleural abnormality. The heart size is upper normal. Normal pericardium. There are calcifications of the coronary arteries. Several mediastinal lymph nodes are again seen, but decreased in size from previous study. There is 1.55 x 0.85 x 0.8 cm precarinal lymph node, as well as a 1.35 x 0.7 x 1.2 cm node in the medial aorticopulmonary window. Normal hilar regions. Normal unenhanced pulmonary arteries. There is stable atherosclerotic calcification and tortuosity of the aortic arch and descending thoracic aorta. There are stable degenerative changes of the thoracic spine, with multilevel bridging anterolateral endplate osteophytes. Stable old fractures of the posterior and posterior lateral right third rib. There is a large retrocardiac hiatal hernia comprising the fundus of the stomach, mildly increased in size from previous study. CT/Chest without Contrast IMPRESSION: 1. Improvement in bilateral infiltrates, as described. Probable reactive mediastinal adenopathy is also improved. 2. A 10 mm nodule in the inferomedial right middle lobe appears smaller, although this may simply reflect improved adjacent infiltrate/atelectasis. A 5 mm nodule in the posterolateral left lower lobe is unchanged. Again, characterization with PET/CT may be prudent. 3. Atherosclerotic vascular calcifications again noted. No demonstrated aortic aneurysm. 4. Large retrocardiac hiatal hernia, mildly increased in size from prior study. Electronically Signed: Willy Mitchell MD at 15:28 EDT , Service support ,
== END ==
PROVIDERS: PCP Internal Medicine; Visit Provider Nurse Practitioner Acute Care
DX: R91.8 Other nonspecific abnormal finding of lung field (principal)
CPT/HCPCS: 71250

== ENCOUNTER → 2020-01-07 12:32 | Outpatient (CLI) | payer MEDICARE, BC, SELFPAY ==
[2019-11-12 08:07] VITALS: BMI 36.9
[2020-01-07 15:09] LABS: Absolute Lymphocyte Count 0.96 X10^3/uL (0.83-4.51); Absolute Neutrophil Count 4.8 X10^3/uL (2.0-7.7); Basophil# 0.06 X10^3/uL; Basophil% 0.9 % (0-1); Eosinophil# 0.18 X10^3/uL; Eosinophils% 2.7 % (0-5); Hematocrit 37.2 % (37-47); Hemoglobin 10.9 g/dL (12.0-15.0); Lymphocyte # 0.96 X10^3/ul (4.0); Lymphocyte % 14.5 % (19-41); Mean Corp Hgb Conc 29.3 g/dL (32-36); Mean Corpuscular Volume 88.8 fL (81-99); Mean Platelet Vol. 10.1 fl (6.2-12.0); Monocyte# 0.63 X10^3/uL; Monocyte% 9.5 % (0-10); NRBC Flagged by Analyzer 0 % (0-5); Neutrophil # 4.75 X10^3/uL (2.7-7.7); Neutrophil % 71.8 % (47-70); Platelet Count 265 K/mm3 (150-450); RBC Distribution Width SD 52.2 fl (35.1-43.9); Red Blood Count 4.19 M/mm3 (4.2-5.4); White Blood Count 6.6 K/mm3 (4.4-11.0)
[2020-01-07 15:28] LABS: ALB/GLOB Ratio 0.8 RATIO (0.9-2.4); AST(SGOT) 21 U/L (15-37); Alanine Aminotransfer ALT/SGPT 24 U/L (13-56); Albumin, Serum 3.1 g/dL (3.2-5.0); Alkaline Phosphatase 111 U/L (45-117); Anion Gap 9 (5-15); BUN 21 mg/dL (7-18); BUN/Creat Ratio 11.4 RATIO (10-20); Calcium,Total 9.6 mg/dL (8.5-10.1); Chloride 109 mmol/L (98-107); Creatinine, Serum 1.84 mg/dL (0.55-1.02); EST Glomerular Filtration Rate 28 mL/min (>60); Est Glom Filt Rate - Afr Amer 34 mL/min (>60); Globulin 3.7 g/dL (2.2-4.2); Glucose 99 mg/dL (74-106); Potassium 4.6 mmol/L (3.5-5.1); Protein, Total 6.8 g/dL (6.4-8.2); Sodium Level 143 mmol/L (136-145)
== END ==
PROVIDERS: PCP Internal Medicine; Referring Provider Internal Medicine Rheumatology; Visit Provider Internal Medicine Rheumatology
DX: M06.00 Rheumatoid arthritis without rheumatoid factor, unspecified site (principal); M79.7 Fibromyalgia; M15.9 Polyosteoarthritis, unspecified; K21.0 Gastro-esophageal reflux disease with esophagitis; G25.81 Restless legs syndrome; F32.89 Other specified depressive episodes; E78.5 Hyperlipidemia, unspecified; M47.897 Other spondylosis, lumbosacral region; Z79.899 Other long term (current) drug therapy
CPT/HCPCS: 36415; 80053; 85025

== ENCOUNTER → 2020-02-17 14:02 | Outpatient (CLI) | payer MEDICARE, BC, SELFPAY ==
[2019-11-12 08:07] VITALS: BMI 36.9
[2020-01-30 08:14] VITALS: BMI 36.9
--- NOTE | 2020-02-17 14:04 | CT_ITS ---
STUDY: CT BRAIN WITHOUT CONTRAST REASON FOR EXAM: Female, 84 years old. MEMORY IMPAIRMENT RADIATION DOSAGE (If Supplied By Facility): CTDIvol = ( 60.81 ) mGy, DLP = ( 998.67 ) mGycm TECHNIQUE: Transaxial CT imaging of the brain was performed without administration of intravenous contrast material. Coronal and sagittal reconstructions were performed. Individualized dose optimization techniques were used for this CT. COMPARISON: CT head without contrast 02/16/2014. FINDINGS: Normal soft tissue structures. Normal calvarium. Developmental asymmetry of the lateral ventricles. Mild cerebral atrophy which is not out of keeping with age. Normal ventricles and cisterns. Normal white matter tracts of the cerebral hemispheres. Normal basal ganglia and thalami. Normal brainstem. Normal cerebellum. There is no intracranial hemorrhage. There are no findings of an acute ischemic infarction. Normal visualized paranasal sinuses. CT/Brain/Head without Contrast IMPRESSION: 1. No CT evidence of intracranial bleeding, acute ischemic infarct or acute intracranial abnormality. 2. No significant interval change when compared to 02/16/2014. Electronically Signed: Marcin Carlson MD at 15:56 EDT , Service support ,
== END ==
PROVIDERS: PCP Internal Medicine; Referring Provider Internal Medicine; Visit Provider Internal Medicine
DX: R41.3 Other amnesia (principal)
CPT/HCPCS: 70450

== ENCOUNTER 2020-05-04 12:04 | Emergency (ER) | payer MEDICARE, BC, SELFPAY ==
[2020-01-30 08:14] VITALS: BMI 36.9
[2020-05-04 12:05] VITALS: BP 147/86; PULSE 82; RESP 17; TEMP 37; O2SAT 97; BMI 36.3
--- NOTE | 2020-05-04 12:50 | EKG12_ITS ---
Test Reason : Blood Pressure : / mmHG Vent. Rate : 074 BPM Atrial Rate : 074 BPM P-R Int : 170 ms QRS Dur : 078 ms QT Int : 380 ms P-R-T Axes : 008 -41 003 degrees QTc Int : 421 ms Normal sinus rhythm Left axis deviation Anterolateral infarct , age undetermined Abnormal ECG Confirmed by HONORIO MONTANEZ, RACHELE ([id number]), medical editor HOLLY FLOR ([id number]) on 05/06/2020 8:31:10 AM Referred By: Confirmed By:RACHELE OLMEDO MD
[2020-05-04 13:05] LABS: Absolute Neutrophil Count 6.2 X10^3/uL (2.0-7.7); Basophil# 0.03 X10^3/uL; Basophil% 0.4 % (0-1); Eosinophil# 0.13 X10^3/uL; Eosinophils% 1.7 % (0-5); Hematocrit 36.9 % (37-47); Hemoglobin 11.6 g/dL (12.0-15.0); Lymphocyte % 6.6 % (19-41); Mean Corp Hgb Conc 31.4 g/dL (32-36); Mean Corpuscular Hgb 26.9 pg (27.0-32.0); Mean Corpuscular Volume 85.6 fL (81-99); Mean Platelet Vol. 9.5 fl (6.2-12.0); Monocyte# 0.59 X10^3/uL; Monocyte% 7.8 % (0-10); NRBC Flagged by Analyzer 0 % (0-5); Neutrophil # 6.21 X10^3/uL (2.7-7.7); Neutrophil % 82.7 % (47-70); POSITIVE DIFFERENTIAL YES; Platelet Count 173 K/mm3 (150-450); RBC Distribution Width CV 17.8 % (11.6-14.6); RBC Distribution Width SD 54.9 fl (35.1-43.9); Red Blood Count 4.31 M/mm3 (4.2-5.4); White Blood Count 7.5 K/mm3 (4.4-11.0)
[2020-05-04 13:09] LABS: Differential Indicated SCAN CRITERIA MET
--- NOTE | 2020-05-04 13:18 | RAD_ITS ---
STUDY: X-RAY CHEST REASON FOR EXAM: Female, 84 years old. Pt arrives to ed with weakness, fatigue, intermittent headache, and increased sob. Hx of low hgb and is on oxygen at home. TECHNIQUE: Single AP portable view of the chest. COMPARISON: Comparison is made with prior study dated October 19 FINDINGS: The lungs are clear and expanded. There is no demonstrated pleural abnormality. There is moderate cardiac enlargement. There are calcified mediastinal lymph nodes. Normal visualized pulmonary arteries. Normal visualized aortic arch and descending thoracic aorta. Normal visualized thoracic spine. Normal visualized ribs, clavicles, and shoulders. Moderate sized hiatal hernia. RAD/Chest 1 View (Portable) IMPRESSION: Hiatal hernia. Cardiomegaly. Electronically Signed: Sandoval Arteaga, at 13:54 EDT , Service support ,
[2020-05-04 13:19] LABS: Anion Gap 3 (5-15); BUN 30 mg/dL (7-18); BUN/Creat Ratio 21.4 RATIO (10-20); Calcium,Total 9.3 mg/dL (8.5-10.1); Chloride 113 mmol/L (98-107); EST Glomerular Filtration Rate 38 mL/min (>60); Est Glom Filt Rate - Afr Amer 46 mL/min (>60); Estimated Creatinine Clearance 39.24 ml/min; Glucose 90 mg/dL (74-106); Potassium 4.8 mmol/L (3.5-5.1); Sodium Level 140 mmol/L (136-145)
[2020-05-04 13:46] VITALS: BP 173/70; PULSE 77; RESP 20; O2SAT 97; O2SAT 98
[2020-05-04 13:58] LABS: Platelet Estimate ADEQUATE (ADEQ); Red Cell Morphology NORM C+C NORMAL (NORM C&C)
--- NOTE | 2020-05-04 14:41 | ED.DCSUM_ITS ---
History of Present Illness Chief Complaint: Weakness Informant: Patient, Family Onset: Weeks - 1 Narrative: Intermittent weakness dyspnea for the past week. No cough. No chest pains. No abdominal pain. No vomiting or diarrhea. No urinary symptoms. Chronic headaches. No recent falls or head injuries. No fevers. Daughter states call PCP, reports with similar episodes in the past he was anemic requiring blood transfusions. She denies any bloody stools. She wears home oxygen as needed, denies COPD or CHF history. There is no history of asthma. Denies wheezing. Patient ambulates with a walker at home. No falls. Lives with her children. Prior similar symptoms: Yes Past Medical History - Allergies and Home Meds Allergies/Adverse Reactions: Allergies No Known Allergies Allergy (Verified 05/04/20 12:05) Primary Care Physician: Candice Amado DO [Primary Care Provider] - Past Medical History: - - Asthma, chronic kidney disease, rheumatoid arthritis Surgical History: appendectomy, hysterectomy, tonsillectomy, - - back surgery, carpal tunnel tarsal tunnel Smoking Status: Never smoker - Family History Maternal Family History: Reports: Heart Disease Paternal Family History: Reports: No pertinent history Review of Systems General: Denies: Chills, Fever, Sweats Eyes: Denies: Visual changes - bilaterally, Diplopia ENT: Denies: Rhinorrhea, Sore throat Cardiovascular: Denies: Chest pain, Palpitations Respiratory: Reports: Dyspnea - .. Denies: Cough, Dyspnea on exertion Gastrointestinal: Denies: Abdominal pain, Nausea, Vomiting, Diarrhea, Melena, Hematochezia Genitourinary: Denies: Dysuria, Hematuria, Frequency Musculoskeletal: Denies: Back pain, Extremity Pain Skin: Denies: Rash, Wounds Neurological: Reports: Headache, Weakness. Denies: Numbness Physical Exam Vital Signs/Narrative: Vital Signs Temp Pulse Resp BP Pulse Ox 05/04/20 13:46 77 20 H 173/70 H 97 05/04/20 12:05 98.6 F 82 17 147/86 H 97 Inital Vital Signs reviewed: Yes General: Well nourished, Well developed, No Acute Distress Head: Normocephalic, Atraumatic Eyes: Perrl, EOMI ENT: Moist mucous membranes, No rhinorrhea Neck: Supple, Nontender, - - No meningismus Cardiovascular: Regular rate, Regular rhythm, No murmurs Respiratory: No distress, CTA bilaterally, Chest nontender Abdomen: Soft, Nontender, Nondistended, Normal bowel sounds Back: Nontender, Normal Inspection Extremities: Nontender, No edema Skin: Normal color, No rash Neurological: Alert, Oriented x3, Cranial nerves II-XII grossly intact, Normal Strength, Normal Sensation Psychological: Normal affect, Normal Mood Diagnostic/Tx/Re-eval Chest X-Ray - ED: 1 View, Read by ED Physician, Read by Radiologist, No Acute Disease Abnormal Lab Results 05/04/20 05/04/20 05/04/20 13:00 13:00 14:52 WBC 7.5 RBC 4.31 Hgb 11.6 L Hct 36.9 L MCV 85.6 MCH 26.9 L MCHC 31.4 L RDW Std Deviation 54.9 H RDW Coeff of Alxmi 17.8 H Plt Count 173 MPV 9.5 Immature Gran % (Auto) 0.800 Neut % (Auto) 82.7 H Lymph % (Auto) 6.6 L [place] % (Auto) 7.8 Eos % (Auto) 1.7 Baso % (Auto) 0.4 Absolute Neuts (auto) 6.2 Absolute Lymphs (auto) 0.50 L Nucleated RBC % 0 Differential Comment Platelet Estimate ADEQUATE RBC Morphology NORM C+C Sodium 140 Potassium 4.8 Chloride 113 H Carbon Dioxide 24.0 Anion Gap 3 L BUN 30 H Creatinine 1.40 H Estim Creat Clear Calc 39.24 Est GFR (MDRD) Af Amer 46 L Est GFR (MDRD) Non-Af 38 L BUN/Creatinine Ratio 21.4 H Glucose 90 Calcium 9.3 Urine Color Yellow Urine Clarity Sl. Cloudy Urine pH 5.0 Ur Specific [place] 1.010 Urine Protein Negative Urine Glucose (UA) Normal Urine Ketones Negative Urine Occult Blood 150 H Urine Nitrite Negative Urine Bilirubin Negative Urine Urobilinogen Normal Ur Leukocyte Esterase Negative Urine RBC 10-25 SEEN Urine WBC 0 SEEN Ur Squamous Epith Cells 0-5 SEEN Urine Bacteria 1+ Urine Mucus 0 SEEN - EKG Initial EKG Interpretation: Sinus Rhythm - Sinus rate of 74, no ST changes backslash T wave inversion in leads III. Nonspecific. Similar to October 2019. - Medical Decision Making Patient presents with fatigue and weakness. EKG nonspecific changes. Chest x- ray negative. Urine negative. There is concerns of anemia lab work does not show any signs of this her hemoglobin actually better than previous her creatinine actually better than previous also. She was reassured she will monitor her symptoms she has a follow-up with her PCP in 3 days. Urine did note hematuria she has no back pain there is no infection. Discussed will give urology for follow-up. All questions were answered. ED Disposition - Plan for ED Patient: Disposition: Home or Assisted Living Diagnosis: Weakness, Hematuria Instructions: ED Hematuria, ED Weakness [facility] Referrals: Candice Amado DO [Primary Care Provider] - Keep Shante appointment Kristofer Houser MD [STAFF PHYSICIAN] - 5-7 Days
[2020-05-04 14:56] LABS: Mucous, Urine 0 SEEN /hpf (<or=2+); White Blood Cells 0 SEEN /hpf (0-5)
[2020-05-04 15:00] VITALS: BP 161/73; PULSE 69; RESP 16; O2SAT 98
[2020-05-04 15:11] LABS: Color, Urine Yellow (Yellow); Glucose, Dipstick Normal (Normal); Ketone-Dipstick Negative (Negative); Leukocyte Esterase-Dipstick Negative /ul (Negative); Nitrite-Dipstick Negative (Negative); Occult Blood-Urine 150 /ul (Negative); Protein-Dipstick Negative (Negative); Urine Bilirubin Dipstick Negative (Negative); Urine Clarity Sl. Cloudy (Clear); Urine Urobilinogen Normal (Normal)
[2020-05-04 15:23] LABS: Bacteria 1+ /hpf (None Seen); Red Blood Cells-Urine 10-25 SEEN /hpf (0-5); Squamous Epithelial Cells - UA 0-5 SEEN /hpf (5-10)
[2020-05-04 16:21] VITALS: BP 106/87; PULSE 73; RESP 18; O2SAT 98
== END 2020-05-04 16:23 | disposition home or self-care (01) ==
PROVIDERS: Emergency Medicine; Emergency Provider Emergency Medicine; PCP Internal Medicine
DX: R53.1 Weakness (principal); R31.9 Hematuria, unspecified; N18.9 Chronic kidney disease, unspecified; J45.909 Unspecified asthma, uncomplicated; M06.9 Rheumatoid arthritis, unspecified; Z79.899 Other long term (current) drug therapy
CPT/HCPCS: 71045; 80048; 81001; 85025; 93005; 94760; 99283; A4216

== ENCOUNTER 2020-07-18 17:50 | Emergency (ER) | payer MEDICARE, BC, SELFPAY ==
[2020-07-10 13:57] VITALS: BMI 36.3
[2020-07-18 17:51] VITALS: BP 180/73; PULSE 70; RESP 16; TEMP 36.2; O2SAT 99; BMI 36.6
--- NOTE | 2020-07-18 18:01 | ED.VIS.GEN ---
History of Present Illness Chief Complaint: Complaint Informant: Patient Onset: Yesterday Context: Sudden Onset Timing: Continuous Current Severity: Moderate Maximum Severity: Moderate Narrative: The patient is an 85-year-old female that presents to the emergency department after a fall. She states last night, she was ambulating from her bedroom to the bathroom. She is unsure if she tripped. She fell forward. She struck her abdomen and her face. She did not lose consciousness. Today, she noticed that she had some blood in her urine. She denies any pain while going. She denies any fevers or chills. She states she does not take anticoagulants. She is otherwise been in her normal state of health. Prior similar symptoms: No Recent Illness/Hospitalization: No Past Medical History - Allergies and Home Meds Allergies/Adverse Reactions: Allergies No Known Allergies Allergy (Verified 07/18/20 17:51) Primary Care Physician: Candice Amado DO [Primary Care Provider] - Prior records reviewed: Yes Past Medical History: - - Hypertension, hyperlipidemia, COPD, arthritis Surgical History: appendectomy, hysterectomy, tonsillectomy, - - back surgery, carpal tunnel tarsal tunnel Smoking Status: Never smoker - Family History Maternal Family History: Family History (Last Updated 07/10/20 @ 14:04 by Eileen Goel) Other Headache Family History: Reports: Heart Disease Paternal Family History: Family History (Last Updated 07/10/20 @ 14:04 by Eileen Goel) Other Headache Family History: Reports: No pertinent history Review of Systems General: Denies: Chills, Fever, Sweats Eyes: Denies: Visual changes - bilaterally, Diplopia ENT: Denies: Rhinorrhea, Sore throat Cardiovascular: Denies: Chest pain, Palpitations Respiratory: Denies: Dyspnea, Cough, Dyspnea on exertion, Paroxysmal nocturnal dyspnea Gastrointestinal: Reports: Abdominal pain. Denies: Nausea, Vomiting, Diarrhea, Melena, Hematochezia Genitourinary: Reports: Hematuria. Denies: Dysuria, Frequency Musculoskeletal: Denies: Back pain, Extremity Pain Skin: Denies: Rash, Wounds Neurological: Denies: Headache, Weakness, Numbness Physical Exam Vital Signs/Narrative: Vital Signs Temp Pulse Resp BP Pulse Ox 07/18/20 17:51 97.1 F L 70 16 180/73 H 99 Inital Vital Signs reviewed: Yes General: Well nourished, Well developed, No Acute Distress Head: Normocephalic, Trauma - Superficial abrasion with contusion across the nose. Superficial abrasions of the face. No malocclusion. Pupils equal round react. Eyes: Perrl, EOMI ENT: Moist mucous membranes, No rhinorrhea Neck: Supple, Nontender Cardiovascular: Regular rate, Regular rhythm, No murmurs Respiratory: No distress, CTA bilaterally, Chest nontender Abdomen: Soft, Nontender, Nondistended, Normal bowel sounds Back: Nontender, Normal Inspection Extremities: Nontender, No edema Skin: Normal color, No rash Neurological: Alert, Oriented x3, Cranial nerves II-XII grossly intact, Normal Strength, Normal Sensation Psychological: Normal affect, Normal Mood Diagnostic/Tx/Re-eval - Medical Decision Making Patient presents with reported hematuria after a fall. Her abdomen is soft and nontender. There is no evidence of blunt abdominal trauma on examination. She does have some facial contusions, but no malocclusion and no evidence of significant fracture especially with palpation. Given her advanced age, I did obtain noncontrast head CT. This was negative. Plan was to evaluate with CT with IV contrast, however the patient's creatinine is elevated but at baseline. I do feel the risk of contrast would be higher, especially since her urine did not show any microscopic blood. There is evidence of infection and culture was added. Patient underwent CT of the abdomen pelvis. She was treated with IV Rocephin. Rest of her lab work is unremarkable. CT the abdomen shows no acute process. Culture was added to the urine. At this point, I do feel the patient is safe for outpatient follow-up. She will be started on Keflex pending culture results. She will be discharged home. Impression 1. Acute cystitis 2. Facial contusion ED Disposition - Plan for ED Patient: Instructions: ED Facial Contusion, ED Bladder Infection, Female (Adult) Prescriptions: Cephalexin [Keflex] 500 mg PO Q8 #21 cap Prescription Printed Referrals: Candice Amado DO [Primary Care Provider] -
[2020-07-18 18:22] LABS: Absolute Lymphocyte Count 1.24 X10^3/uL (0.83-4.51); Absolute Neutrophil Count 5.8 X10^3/uL (2.0-7.7); Basophil# 0.07 X10^3/uL; Basophil% 0.8 % (0-1); Eosinophil# 0.27 X10^3/uL; Eosinophils% 3.3 % (0-5); Hematocrit 34.9 % (37-47); Hemoglobin 10.7 g/dL (12.0-15.0); Lymphocyte # 1.24 X10^3/ul (4.0); Mean Corp Hgb Conc 30.7 g/dL (32-36); Mean Corpuscular Hgb 27.7 pg (27.0-32.0); Mean Corpuscular Volume 90.4 fL (81-99); Mean Platelet Vol. 9.5 fl (6.2-12.0); Monocyte% 9.7 % (0-10); NRBC Flagged by Analyzer 0 % (0-5); Neutrophil # 5.81 X10^3/uL (2.7-7.7); Neutrophil % 70.5 % (47-70); Platelet Count 216 K/mm3 (150-450); RBC Distribution Width CV 17.7 % (11.6-14.6); Red Blood Count 3.86 M/mm3 (4.2-5.4); White Blood Count 8.3 K/mm3 (4.4-11.0)
[2020-07-18 18:35] LABS: ALB/GLOB Ratio 0.9 RATIO (0.9-2.4); AST(SGOT) 15 U/L (15-37); Alanine Aminotransfer ALT/SGPT 29 U/L (13-56); Alkaline Phosphatase 97 U/L (45-117); Anion Gap 4 (5-15); BUN 32 mg/dL (7-18); BUN/Creat Ratio 17.4 RATIO (10-20); Chloride 111 mmol/L (98-107); Creatinine, Serum 1.84 mg/dL (0.55-1.02); EST Glomerular Filtration Rate 28 mL/min (>60); Est Glom Filt Rate - Afr Amer 34 mL/min (>60); Estimated Creatinine Clearance 28.52 ml/min; Globulin 3.3 g/dL (2.2-4.2); Glucose 96 mg/dL (74-106); Potassium 4.1 mmol/L (3.5-5.1); Protein, Total 6.3 g/dL (6.4-8.2); Sodium Level 141 mmol/L (136-145)
--- NOTE | 2020-07-18 18:36 | CT_ITS ---
STUDY: CT ABDOMEN AND PELVIS WITHOUT CONTRAST REASON FOR EXAM: Female, 85 years old. Fall last night, hematuria RADIATION DOSAGE (If Supplied By Facility): CTDIvol = ( 22.67 ) mGy, DLP = ( 1578.74 ) mGycm TECHNIQUE: Transaxial images were obtained from the dome of the diaphragm to the symphysis pubis without oral contrast, and without intravenous contrast. Sagittal and coronal images were reconstructed. Individualized dose optimization techniques were used for this CT. COMPARISON: 19 October 2019 FINDINGS: Right middle lobe paracardiac nodule has has decreased and now measures 1 cm. There are minor scattered scars and atelectasis. There are no pleural effusions. There is a large hiatal hernia containing large portion of the stomach in the chest. Normal liver. Gallbladder is surgically removed.. Normal spleen. Normal pancreas. Normal bilateral adrenal glands. Normal right kidney. Normal left kidney. Normal visualized stomach. Normal small intestine. Normal colon with mild age-appropriate diverticulosis. Appendix is surgically removed. Normal abdominal aorta. Normal inferior vena cava. Normal retroperitoneum. Normal urinary bladder. Uterus is surgically removed. There is prior ventral hernia repair without recurrence. Normal abdominal wall. There are no osseous destructive lesions or fractures. There is stable remotely placed L3 -- L4-L5 pedicular screw fusion with L4-L5 laminectomy decompression. Grade 1 L4-L5 anterolisthesis is unchanged since prior. The skeleton is osteopenic. Appearance is stable since prior. CT/Abdomen/Pelvis without Cont IMPRESSION: 1. No acute findings. 2. Unremarkable urinary system, no urinary calculi. Electronically Signed: Tim Randle, at 19:48 EST Tel , Service support ,
[2020-07-18 18:44] LABS: Mucous, Urine 0 SEEN /hpf (<or=2+); Red Blood Cells-Urine 0 SEEN /hpf (0-5); Squamous Epithelial Cells - UA 0 SEEN /hpf (5-10)
[2020-07-18 18:46] LABS: Color, Urine Yellow (Yellow); Glucose, Dipstick Normal (Normal); Ketone-Dipstick Negative (Negative); Leukocyte Esterase-Dipstick 500 /ul (Negative); Nitrite-Dipstick Negative (Negative); Occult Blood-Urine 150 /ul (Negative); Protein-Dipstick Negative (Negative); Urine Bilirubin Dipstick Negative (Negative); Urine Clarity Sl. Cloudy (Clear); Urine Urobilinogen Normal (Normal)
[2020-07-18 18:51] LABS: Bacteria 1+ /hpf (None Seen); White Blood Cells 10-25 SEEN /hpf (0-5)
--- NOTE | 2020-07-18 18:52 | CT_ITS ---
STUDY: CT BRAIN WITHOUT CONTRAST REASON FOR EXAM: Female, 85 years old. Fall head trauma headache RADIATION DOSAGE (If Supplied By Facility): CTDIvol = ( 44.99 ) mGy, DLP = ( 812.98 ) mGycm TECHNIQUE: Transaxial CT imaging of the brain was performed without administration of intravenous contrast material. Individualized dose optimization techniques were used for this CT. COMPARISON: February 17 2020 FINDINGS: Brain parenchyma is without focal lesions, mass effect, acute intracranial hemorrhage, extra parenchymal fluid collections, hydrocephalus or herniation. The skull is intact with diffuse hyperostosis. CT/Brain/Head without Contrast IMPRESSION: 1. Normal CT brain. Electronically Signed: Tim Randle, at 19:20 EST Tel , Service support ,
[2020-07-18] MEDS: Ceftriaxone 1 GM/50 ML BAG IV (19:13)
[2020-07-18 20:06] VITALS: BP 135/47; PULSE 76; RESP 17; O2SAT 98
== END 2020-07-18 20:07 | disposition home or self-care (01) ==
LOC: ED 18:39
PROVIDERS: Emergency Provider Emergency Medicine; PCP Internal Medicine
DX: N30.01 Acute cystitis with hematuria (principal); S00.33XA Contusion of nose, initial encounter; W18.39XA Other fall on same level, initial encounter; Y93.01 Activity, walking, marching and hiking; Y92.9 Unspecified place or not applicable; Y99.9 Unspecified external cause status; I10 Essential (primary) hypertension; E78.5 Hyperlipidemia, unspecified; J44.9 Chronic obstructive pulmonary disease, unspecified; M19.90 Unspecified osteoarthritis, unspecified site; Z79.899 Other long term (current) drug therapy
CPT/HCPCS: 70450; 74176; 80053; 81001; 85025; 87077; 87086; 87088; 87186; 96365; 99284; J7050; A4216

== ENCOUNTER → 2020-08-20 14:01 | Outpatient (CLI) | payer MEDICARE, BC, SELFPAY ==
--- NOTE | 2020-08-20 14:05 | VDLE_ITS ---
Reason For Study: pain Procedure LEFT This is a venous duplex using B-mode, color GSV is normal. flow and spectral Doppler. CFV is compressible, spontaneous, phasic, Exam performed in department. competent, and demonstrates normal The exam was abbreviated due to the COVID 19 augmentation. protocol. FV is compressible, spontaneous, phasic, The exam was diagnostic. competent and demonstrates normal A preliminary report was called and/or faxed augmentation. to [facility]. POP V is compressible, spontaneous, phasic, competent and demonstrates normal augmentation. T/P Trunk is compressible. LT PerV is compressible. PTV is dilated and noncompressible. Interpretation Summary Acute deep vein thrombosis is noted in the left posterior tibial vein. The remainder of the left lower extremity deep venous system is patent and compressible. Valvular competence appears intact within the proximal deep venous system on the left . The left great saphenous vein appears patent and compressible segmentally. Ordering Physician: Candice Amado Performed By: Sampson Nicole RVT
== END ==
PROVIDERS: PCP Internal Medicine; Referring Provider Internal Medicine; Visit Provider Internal Medicine
DX: I82.442 Acute embolism and thrombosis of left tibial vein (principal)
CPT/HCPCS: 93971

== ENCOUNTER 2020-09-30 08:55 | Outpatient (RCR) | payer MEDICARE, BC, SELFPAY | END 2020-09-30 23:59 | LOC: IMMUN 08:55 | PROVIDERS: PCP Internal Medicine; Visit Provider Family Medicine | DX: Z23 Encounter for immunization (principal) | CPT/HCPCS: 0011A; 0012A ==

== ENCOUNTER → 2020-10-01 13:03 | Outpatient (CLI) | payer MEDICARE, BC, SELFPAY ==
--- NOTE | 2020-10-01 13:04 | VDLE_ITS ---
Reason For Study: DVT Procedure LEFT This is a venous duplex using B-mode, color GSV is normal. flow and spectral Doppler. CFV is compressible, spontaneous, phasic, Exam performed in department. competent, and demonstrates normal Compared to study done on 08/20/2020. augmentation. A preliminary report was called and/or faxed FV is compressible, spontaneous, phasic, to [facility]. competent and demonstrates normal augmentation. POP V is compressible, spontaneous, phasic, competent and demonstrates normal augmentation. T/P Trunk is compressible. PTV is compressible. LT PerV is compressible. Interpretation Summary Deep veins of the left lower extremity are patent and compressible segmentally. There is no evidence of left lower extremity deep vein thrombosis. Valvular competence appears intact within the proximal deep venous system on the left . The left great saphenous vein appears patent and compressible segmentally. Ordering Physician: Candice Amado Referring Physician: Candice Amado Performed By: Kymberly Torres RVT
== END ==
PROVIDERS: PCP Internal Medicine; Referring Provider Internal Medicine; Visit Provider Internal Medicine
DX: Z86.718 Personal history of other venous thrombosis and embolism (principal)
CPT/HCPCS: 93971

== ENCOUNTER → 2020-10-05 13:35 | Outpatient (CLI) | payer MEDICARE, BC, SELFPAY ==
[2020-10-05 15:26] LABS: Absolute Lymphocyte Count 0.81 X10^3/uL (0.83-4.51); Absolute Neutrophil Count 4.7 X10^3/uL (2.0-7.7); Basophil# 0.04 X10^3/uL; Basophil% 0.6 % (0-1); Eosinophils% 3.1 % (0-5); Hemoglobin 10.3 g/dL (12.0-15.0); Lymphocyte # 0.81 X10^3/ul (4.0); Lymphocyte % 12.7 % (19-41); Mean Corp Hgb Conc 33.2 g/dL (32-36); Mean Corpuscular Hgb 31.6 pg (27.0-32.0); Mean Corpuscular Volume 95.1 fL (81-99); Mean Platelet Vol. 10.1 fl (6.2-12.0); Monocyte# 0.63 X10^3/uL; Monocyte% 9.8 % (0-10); NRBC Flagged by Analyzer 0 % (0-5); Neutrophil # 4.68 X10^3/uL (2.7-7.7); Neutrophil % 73.2 % (47-70); Platelet Count 212 K/mm3 (150-450); RBC Distribution Width SD 54.7 fl (35.1-43.9); Red Blood Count 3.26 M/mm3 (4.2-5.4); White Blood Count 6.4 K/mm3 (4.4-11.0)
[2020-10-05 15:55] LABS: AST(SGOT) 19 U/L (15-37); Alanine Aminotransfer ALT/SGPT 22 U/L (13-56); Albumin, Serum 3.1 g/dL (3.2-5.0); Alkaline Phosphatase 106 U/L (45-117); Anion Gap 9 (5-15); BUN 31 mg/dL (7-18); BUN/Creat Ratio 16.2 RATIO (10-20); Calcium,Total 9.1 mg/dL (8.5-10.1); Chloride 106 mmol/L (98-107); Creatinine, Serum 1.91 mg/dL (0.55-1.02); EST Glomerular Filtration Rate 27 mL/min (>60); Est Glom Filt Rate - Afr Amer 32 mL/min (>60); Globulin 3.2 g/dL (2.2-4.2); Glucose 112 mg/dL (74-106); Potassium 3.4 mmol/L (3.5-5.1); Protein, Total 6.3 g/dL (6.4-8.2); Sodium Level 141 mmol/L (136-145)
== END ==
PROVIDERS: PCP Internal Medicine; Referring Provider Internal Medicine Rheumatology; Visit Provider Internal Medicine Rheumatology
DX: M06.00 Rheumatoid arthritis without rheumatoid factor, unspecified site (principal); M79.7 Fibromyalgia; M17.0 Bilateral primary osteoarthritis of knee; K21.00 Gastro-esophageal reflux disease with esophagitis, without bleeding; G25.81 Restless legs syndrome; F32.89 Other specified depressive episodes; E78.5 Hyperlipidemia, unspecified; M47.897 Other spondylosis, lumbosacral region; Z79.899 Other long term (current) drug therapy
CPT/HCPCS: 36415; 80053; 85025

== ENCOUNTER 2020-10-20 10:55 | Emergency (ER) | payer MEDICARE, BC, SELFPAY ==
[2020-10-20 10:56] VITALS: BP 150/90; PULSE 46; RESP 16; TEMP 36.7; BMI 36.6
--- NOTE | 2020-10-20 11:10 | ED.VIS.GEN ---
History of Present Illness Chief Complaint: Lower Extremity Injury Informant: Patient, Family Onset: Weeks - Patient had bilateral lower extremity pain for weeks. Context: Sudden Onset Timing: Continuous, Waxes and wanes Quality: Pain Location: Right and left lower extremity no specific spot Current Severity: Mild Maximum Severity: Severe Worsened by: Weightbearing Relieved by: Nothing per patient Associated Symptoms: No other symptoms Narrative: Patient is an elderly woman with multiple medical problems who does have history of osteoarthritis of multiple joints who presents with right and left lower extremity pain that has been going on for greater than 3 weeks. Pain waxes and wanes. She cannot be more specific as far as quality or location. She does have history of DVT on Eliquis. She was diagnosed with a DVT approximately 2 to 3 months ago left lower extremity. She denies increased shortness of breath. She denies chest pain or pleuritic chest pain. She denies fever, chills night sweats. She denies history of autoimmune disorder. She denies ocular, visual auditory symptoms. She denies headache. She denies neck pain or back pain. She denies cardiac respiratory symptoms. She denies GI symptoms. She denies urologic symptoms. Daughter states she is compliant with meds and diet. She does have an appointment to see her primary care physician tomorrow. 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 Past Medical History - Allergies and Home Meds Allergies/Adverse Reactions: Allergies No Known Allergies Allergy (Verified 10/20/20 10:58) Primary Care Physician: Candice Amado DO [Primary Care Provider] - Prior records reviewed: Yes Surgical History: appendectomy, hysterectomy, tonsillectomy, - - back surgery, carpal tunnel tarsal tunnel Lives: With Family Smoking Status: Never smoker Alcohol: None Drugs: None - Family History Maternal Family History: Family History (Last Updated 07/10/20 @ 14:04 by Eileen Goel) Other Headache Family History: Reports: Heart Disease Paternal Family History: Family History (Last Updated 07/10/20 @ 14:04 by Eileen Goel) Other Headache Family History: Reports: No pertinent history Review of Systems General: Reports: Malaise. Denies: Chills, Fever, Subjective, Sweats Eyes: Denies: Visual changes - bilaterally, Blurred Vision - bilaterally ENT: Denies: Rhinorrhea, Sore throat Cardiovascular: Denies: Chest pain, Palpitations Respiratory: Reports: Dyspnea, Dyspnea on exertion, - - Dyspnea is chronic. It is not a new symptom.. Denies: Cough, Sputum Gastrointestinal: Denies: Abdominal pain, Nausea, Vomiting, Diarrhea, Constipation, Melena, Hematochezia, -, - Genitourinary: Denies: Dysuria, Hematuria, Frequency Musculoskeletal: Reports: Extremity Pain. Denies: Myalgias, Arthralgias, Neck pain, Back pain, Swelling, -, - Skin: Denies: Rash, Wounds Neurological: Reports: Weakness. Denies: Parasthesia, Numbness Psych: Reports: Depression. Denies: Anxiety, Suicidal thoughts Endocrine: Denies: Polyuria, Polydipsia Hematologic: Denies: Easy bruising, Easy bleeding Physical Exam Vital Signs/Narrative: Vital Signs Temp Pulse Resp BP 10/20/20 10:56 98.1 F 46 L 16 150/90 H Inital Vital Signs reviewed: Yes General: Well nourished, Well developed, No Acute Distress Head: Normocephalic, Atraumatic Eyes: Perrl, EOMI. Negative for: Pale conjunctiva, Scleral icterus ENT: Moist mucous membranes, No rhinorrhea Neck: Supple, Nontender Cardiovascular: Regular rate, Regular rhythm, No murmurs, Normal S1, Normal S2 Respiratory: No distress, CTA bilaterally, Chest nontender Abdomen: Soft, Nontender, Nondistended, Normal bowel sounds Back: Nontender, Normal Inspection. Negative for: CVA tenderness, Spinal tenderness Extremities: No edema, Tenderness, - - There is slight swelling of the right left knee and ankles. She has pain to palpation. There is no effusion of the knee. There is no laxity with stress testing of the knee or ankle joint bilaterally. DP and PT pulse are 2+ and symmetric.. Negative for: Calf Tenderness Skin: Normal color, No rash, No Trauma. Negative for: Cyanosis, Diaphoresis, Jaundice Neurological: Alert, Oriented x3, Cranial nerves II-XII grossly intact, Normal Strength, Normal Sensation Psychological: Depressed. Negative for: Normal affect, Normal Mood Diagnostic/Tx/Re-eval Laboratory Results 10/20/20 10/20/20 11:20 11:20 WBC 7.3 RBC 4.01 L Hgb 11.7 L Hct 38.2 MCV 95.3 MCH 29.2 MCHC 30.6 L RDW Std Deviation 54.5 H RDW Coeff of [place]mi 15.7 H Plt Count 208 MPV 9.2 Immature Gran % (Auto) 0.400 Neut % (Auto) 76.7 H Lymph % (Auto) 11.8 L [place] % (Auto) 8.8 Eos % (Auto) 1.8 Baso % (Auto) 0.5 Absolute Neuts (auto) 5.6 Absolute Lymphs (auto) 0.86 Nucleated RBC % 0 ESR 18 Sodium 142 Potassium 4.0 Chloride 109 H Carbon Dioxide 27.0 Anion Gap 6 BUN 29 H Creatinine 1.81 H Estim Creat Clear Calc 28.99 Est GFR (MDRD) Af Amer 34 L Est GFR (MDRD) Non-Af 28 L BUN/Creatinine Ratio 16.0 Glucose 124 H Calcium 9.5 Total Bilirubin 0.30 AST 18 ALT 26 Alkaline Phosphatase 119 H Total Protein 6.7 Albumin 3.5 Globulin 3.2 Albumin/Globulin Ratio 1.1 Blood work was reviewed. Blood work is unchanged from prior. Sed rate is normal. Dr. Amado on her primary care physician was paged to discuss case. - Medical Decision Making Suspect this is due to multijoint osteoarthritis. Will obtain blood work to assess for infection and other causes. Also suspect there is a component of depression. Case was discussed with Heidi Romeo from the primary care office. She is well aware of patient and knows patient well. She is in agreement with my assessment. ED Disposition - Plan for ED Patient: Disposition: Home or Assisted Living Diagnosis: Osteoarthritis of lower legs, bilateral, Depression Referrals: Candice Amado DO [Primary Care Provider] - Keep Shante appointment
[2020-10-20] MEDS: Morphine 2 MG/ML Syringe IV (11:21)
[2020-10-20] MEDS: Ondansetron 4 MG/2 ML Vial IV (11:21)
[2020-10-20 11:33] LABS: Erythrocyte Sedimentation Rate 18 mm/hr (0-30)
[2020-10-20 11:35] LABS: Absolute Lymphocyte Count 0.86 X10^3/uL (0.83-4.51); Absolute Neutrophil Count 5.6 X10^3/uL (2.0-7.7); Basophil# 0.04 X10^3/uL; Basophil% 0.5 % (0-1); Eosinophil# 0.13 X10^3/uL; Eosinophils% 1.8 % (0-5); Hematocrit 38.2 % (37-47); Hemoglobin 11.7 g/dL (12.0-15.0); Lymphocyte # 0.86 X10^3/ul (4.0); Lymphocyte % 11.8 % (19-41); Mean Corp Hgb Conc 30.6 g/dL (32-36); Mean Corpuscular Hgb 29.2 pg (27.0-32.0); Mean Corpuscular Volume 95.3 fL (81-99); Mean Platelet Vol. 9.2 fl (6.2-12.0); Monocyte# 0.64 X10^3/uL; Monocyte% 8.8 % (0-10); NRBC Flagged by Analyzer 0 % (0-5); Neutrophil # 5.58 X10^3/uL (2.7-7.7); Neutrophil % 76.7 % (47-70); Platelet Count 208 K/mm3 (150-450); RBC Distribution Width CV 15.7 % (11.6-14.6); RBC Distribution Width SD 54.5 fl (35.1-43.9); Red Blood Count 4.01 M/mm3 (4.2-5.4); White Blood Count 7.3 K/mm3 (4.4-11.0)
[2020-10-20 11:46] LABS: ALB/GLOB Ratio 1.1 RATIO (0.9-2.4); AST(SGOT) 18 U/L (15-37); Alanine Aminotransfer ALT/SGPT 26 U/L (13-56); Albumin, Serum 3.5 g/dL (3.2-5.0); Alkaline Phosphatase 119 U/L (45-117); Anion Gap 6 (5-15); BUN 29 mg/dL (7-18); Calcium,Total 9.5 mg/dL (8.5-10.1); Chloride 109 mmol/L (98-107); Creatinine, Serum 1.81 mg/dL (0.55-1.02); EST Glomerular Filtration Rate 28 mL/min (>60); Est Glom Filt Rate - Afr Amer 34 mL/min (>60); Estimated Creatinine Clearance 28.99 ml/min; Globulin 3.2 g/dL (2.2-4.2); Glucose 124 mg/dL (74-106); Protein, Total 6.7 g/dL (6.4-8.2); Sodium Level 142 mmol/L (136-145)
== END 2020-10-20 13:06 | disposition home or self-care (01) ==
PROVIDERS: Emergency Provider Emergency Medicine; PCP Internal Medicine
DX: M19.09 Primary osteoarthritis, other specified site (principal); F32.9 Major depressive disorder, single episode, unspecified; Z79.02 Long term (current) use of antithrombotics/antiplatelets; Z90.710 Acquired absence of both cervix and uterus; Z86.718 Personal history of other venous thrombosis and embolism
CPT/HCPCS: 80053; 85025; 85652; 96374; 96375; 99283; J2405

== ENCOUNTER 2020-12-31 10:09 | Inpatient (IN) | payer MEDICARE, BC, SELFPAY ==
[2020-12-31] VITALS (9 sets, daily range): BP systolic 118–148; BP diastolic 53–104; PULSE 65–74; RESP 16–21; TEMP 36.6–36.9; O2SAT 93–98; BMI 36.6; BMI 35.3; BMI 34.3
--- NOTE | 2020-12-31 10:25 | CT_ITS ---
STUDY: CT ABDOMEN AND PELVIS WITHOUT CONTRAST REASON FOR EXAM: Female, 85 years old. Abdominal wall cellulitis. Possible abscess. RADIATION DOSAGE (If Supplied By Facility): CTDIvol = ( 19.98 ) mGy, DLP = ( 889.35 ) mGycm TECHNIQUE: Transaxial images were obtained from the dome of the diaphragm to the symphysis pubis without oral contrast, and without intravenous contrast. Sagittal and coronal images were reconstructed. Individualized dose optimization techniques were used for this CT. COMPARISON: Comparison is made with prior study dated 10/19/2019. FINDINGS: Stable minimal increased linear markings at the left lung base. Stable 1 cm right paracardiac nodule. The visualized portions of the heart are within normal limits. Normal liver. The patient is status post cholecystectomy. Normal spleen. Normal pancreas. Normal bilateral adrenal glands. Normal right kidney. Normal left kidney. There is a moderate-sized hiatal hernia. Normal small intestine. There are multiple colonic diverticula consistent with diverticulosis. There is non-visualization of the appendix. There is diffuse atherosclerotic calcification of the abdominal aorta and its major visceral branches, without a demonstrated aneurysm. Normal inferior vena cava. Normal retroperitoneum. Normal urinary bladder. There is absence of the uterus consistent with a prior hysterectomy. The patient is status post umbilical hernia repair with mesh. There is diffuse overlying skin thickening of the periumbilical region as well as increased markings in the subcutaneous fat more prominent on the right side. There is evidence of a 5 cm x 4.4 cm soft tissue density with small amount of air within it. This may represent postoperative abscess. Patient is status post fusion of the L3-L5 vertebrectomy with screw and nghia fixation device. Grade 1 anterolisthesis of L4 on L5. CT/Abdomen/Pelvis without Cont IMPRESSION: Focal area of a soft tissue density with small amount of air bubbles within it suggestive of possible abscess deep in the subcutaneous tissue overlying the prior repair of the ventral hernia with a mesh. There is overlying skin thickening and increased markings in the subcutaneous fat worse on the right side of the midline. Electronically Signed: Sandoval Arteaga MD at 12:18 EDT , Service support ,
--- NOTE | 2020-12-31 10:46 | EDS_ITS ---
HPI HPI - GI History of Present Illness Chief Complaint: Abd Pain Narrative Narrative: 85-year-old female patient of Dr. Amado. She reports that she has abdominal pain that began 3 days ago. At that time she noted redness around her umbilicus. She reports it is a dull, burning pain is 8 out of 10 at worst and 6 out of 10 currently. Is worsened by touching it. Is relieved by nothing. She denies any associated nausea or vomiting. No diarrhea. Her last bowel movement was yesterday. No matter medic easier. No dysuria. Patient was seen yesterday and started on Keflex. She has had 3 doses without any improvement. She saw Dr. Saucedo in the office today and was sent to the emergency department for labs, CT, IV antibiotics, and admission. [facility] Medical History (Updated 12/31/20 @ 16:[address] Parker Chambers MD) Abnormal bruising Anxiety Chronic neck and back pain Difficulty balancing when standing DVT (deep venous thrombosis) Hearing loss, left Hearing loss, right Incontinence Knee pain Migraines Non-smoker On home oxygen therapy Polyosteoarthritis Polyosteoarthritis Severe headache Shoulder pain SOB (shortness of breath) Home Medications diphenoxylate-atropine [Lomotil] 2.5 mg PO TID PRN PRN 02/16/14 [History Last Taken Unknown] atenolol 25 mg PO BID 06/09/15 [History Last Taken 12/31/20] sumatriptan succinate [Imitrex] 100 mg PO .X1 PRN MDD MIGRAINE 06/09/15 [History Last Taken Unknown] multivitamin with folic acid [Thera] 1 tab PO DAILY 01/29/18 [History Last Taken 2 Weeks Ago ~12/17/20] furosemide 20 mg PO BID 07/21/18 [History Last Taken 12/31/20] ferrous sulfate 325 mg PO DAILY 10/19/19 [History Last Taken 12/31/20] solifenacin 10 mg PO DAILY 10/19/19 [History Last Taken 12/31/20] albuterol sulfate 1 - 2 puff INHALATION Q4H PRN PRN #1 inhaler 10/23/19 [Rx Last Taken Unknown] nystatin 1 applic TOPICAL TID #1 bottle 10/23/19 [Rx Last Taken 12/30/20] apixaban 5 mg PO BID 10/20/20 [History Last Taken 12/31/20] cephalexin 500 mg capsule 500 mg PO BID 12/31/20 [History Last Taken 12/31/20] duloxetine 60 mg PO BID 12/31/20 [History Last Taken 12/31/20] gabapentin 100 mg PO BID 12/31/20 [History Last Taken 12/31/20] gabapentin 300 mg capsule 300 mg PO QHS cap 12/31/20 [History Last Taken 12/30/20] hydroxychloroquine 200 mg tablet 200 mg PO BID tab 12/31/20 [History Last Taken 12/31/20] prednisone 10 mg tablet 10 mg PO DAILY PRN 12/31/20 [History Last Taken Unknown] ropinirole 0.5 mg tablet 0.5 mg PO QHS tab 12/31/20 [History Last Taken 12/30/20] Allergy/AdvReac Type Severity Reaction Status Date / Time No Known Allergies Allergy Verified 12/31/20 10:39 Family History Other Headache Surgical History (Updated 12/31/20 @ 15:52 by Chela Sheppard) History of appendectomy History of back surgery History of cholecystectomy History of foot surgery History of hernia surgery History of surgery on wrist Social History Smoking Status: Never smoker alcohol intake: never ROS ROS ED Constitutional Constitutional ED: Denies chills, fever(s) or sweats Eyes Eyes: Denies change in vision ENT ENT ED: Denies sore throat Cardiovascular Cardiovascular: Denies chest pain Respiratory/Chest Respiratory/Chest: Denies cough, dyspnea or dyspnea on exertion Gastrointestinal Gastrointestinal: Reports abdominal pain; Denies diarrhea, melena, nausea or vomiting Genitourinary Genitourinary ED: Denies dysuria or urinary frequency Musculoskeletal Musculoskeletal: Denies myalgias Integumentary Denies rash Neurologic Neurologic: Reports headache(s) and other Details: 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 ; Denies paresthesias or weakness EXAM Physical Exam Const Vital Signs: 12/31/20 10:10 12/31/20 10:25 12/31/20 11:11 Temperature 98.1 F 98.5 F Temperature Source Temporal Oral Pulse Rate 74 69 68 Respiratory Rate 16 21 H 16 Blood Pressure 124/61 H 124/86 H 148/104 H Blood Pressure Mean 82 98 118 Pulse Ox 98 98 97 Oxygen Delivery Method Room Air Room Air Room Air 12/31/20 12:04 12/31/20 13:00 12/31/20 14:09 Temperature 98.5 F 98.0 F 98.2 F Temperature Source Oral Oral Oral Pulse Rate 68 67 65 Respiratory Rate 16 16 19 H Blood Pressure 148/104 H 134/71 H 122/56 H Blood Pressure Mean 118 92 78 Pulse Ox 97 93 98 Oxygen Delivery Method Room Air Room Air Room Air Positive well nourished and well developed General Appearance ED: well developed HEENT Reports normocephalic and head/scalp atraumatic Eyes PERRL Neck no lymphadenopathy, supple and no JVD General: Negative for tenderness Resp normal respiratory effort and clear to auscultation bilaterally Cardio regular rate, regular rhythm and no murmurs GI normal to inspection, nondistended, normoactive bowel sounds and non-distended GI Narrative: No guarding, rebound, or peritoneal signs. Moderate tenderness palpation to an area surrounding her umbilicus that is approximately 8 cm in diameter. The central portion of this is indurated. I do not appreciate any fluctuance. She does have erythema consistent with Roseanna in the inguinal folds bilaterally and underneath her pannus. There is no evidence of a cellulitis in these areas. Auscultation: normoactive bowel sounds Palpation: soft Back/Spine Back/Spine Narrative: Nontender. Extremity General Extremety ED: Negative for edema or tenderness General Extremity: Negative for edema Neuro oriented x3, CN's II-XII intact bilaterally and no sensory deficits noted Sensorium / Orientation: alert Motor Exam: strength 5/5 throughout Psych mental status grossly normal Skin no rashes or lesions noted Skin Narrative: See abdominal exam. Rashes: rashes noted MDM MDM Lab Data Labs: Laboratory Results - last 24 hr 12/31/20 12/31/20 12/31/20 10:45 10:45 10:45 WBC 11.4 H RBC 4.38 Hgb 12.3 Hct 39.2 MCV 89.5 MCH 28.1 MCHC 31.4 L RDW Std Deviation 51.7 H RDW Coeff of Laxmi 15.9 H Plt Count 199 MPV 8.8 Immature Gran % (Auto) 1.800 H Neut % (Auto) 76.7 H Lymph % (Auto) 8.6 L Howard % (Auto) 12.3 H Eos % (Auto) 0.2 Baso % (Auto) 0.4 Absolute Neuts (auto) 8.8 H Absolute Lymphs (auto) 0.98 Nucleated RBC % 0 PT 17.7 H INR 1.5 APTT 32.9 Sodium 139 Potassium 3.7 Chloride 104 Carbon Dioxide 30.0 Anion Gap 5 BUN 39 H Creatinine 1.90 H Estim Creat Clear Calc 27.62 Est GFR (MDRD) Af Amer 32 L Est GFR (MDRD) Non-Af 27 L BUN/Creatinine Ratio 20.5 H Glucose 82 Lactic Acid Calcium 9.4 Total Bilirubin 0.40 AST 18 ALT 43 Alkaline Phosphatase 142 H Total Protein 6.4 Albumin 2.7 L Globulin 3.7 Albumin/Globulin Ratio 0.7 L 12/31/20 10:45 WBC RBC Hgb Hct MCV MCH MCHC RDW Std Deviation RDW Coeff of Laxmi Plt Count MPV Immature Gran % (Auto) Neut % (Auto) Lymph % (Auto) Howard % (Auto) Eos % (Auto) Baso % (Auto) Absolute Neuts (auto) Absolute Lymphs (auto) Nucleated RBC % PT INR APTT Sodium Potassium Chloride Carbon Dioxide Anion Gap BUN Creatinine Estim Creat Clear Calc Est GFR (MDRD) Af Amer Est GFR (MDRD) Non-Af BUN/Creatinine Ratio Glucose Lactic Acid 1.3 Calcium Total Bilirubin AST ALT Alkaline Phosphatase Total Protein Albumin Globulin Albumin/Globulin Ratio Radiography Diagnostic Testing: Radiology Impression Abdomen/Pelvis CT 12/31/20 10:25 IMPRESSION: Focal area of a soft tissue density with small amount of air bubbles within it suggestive of possible abscess deep in the subcutaneous tissue overlying the prior repair of the ventral hernia with a mesh. There is overlying skin thickening and increased markings in the subcutaneous fat worse on the right side of the midline. Electronically Signed: Sandoval Arteaga MD at 12:18 EDT , Service support , Abdomen CT 12/31/20 12:24 IMPRESSION: The examination is unchanged. Electronically Signed: Sandoval Arteaga MD at 15:11 EDT , Service support , Treatment and Re-Evaluation Comments:: Emergency department course: Patient had an IV placed. She was given morphine, Zofran, and vancomycin IV. She is resting more comfortably. Treatment plan: Patient was discussed with Dr. Saucedo. She will also be discussed with the hospitalist and admitted for further evaluation and treatment. Discharge Plan Dx/Rx/DC Orders Clinical Impression: Cellulitis, umbilical, Candidal intertrigo, Abdominal wall abscess Disposition Disposition: Acute Care Hospital [facility] Discharge Date/Time: 12/31/20 17:10
[2020-12-31 10:55] LABS: Absolute Lymphocyte Count 0.98 X10^3/uL (0.83-4.51); Absolute Neutrophil Count 8.8 X10^3/uL (2.0-7.7); Basophil# 0.04 X10^3/uL; Basophil% 0.4 % (0-1); Eosinophil# 0.02 X10^3/uL; Eosinophils% 0.2 % (0-5); Hematocrit 39.2 % (37-47); Hemoglobin 12.3 g/dL (12.0-15.0); Lymphocyte # 0.98 X10^3/ul (0.83-4.51); Lymphocyte % 8.6 % (19-41); Mean Corp Hgb Conc 31.4 g/dL (32-36); Mean Corpuscular Hgb 28.1 pg (27.0-32.0); Mean Corpuscular Volume 89.5 fL (81-99); Mean Platelet Vol. 8.8 fl (6.2-12.0); Monocyte% 12.3 % (0-10); NRBC Flagged by Analyzer 0 % (0-5); Neutrophil # 8.75 X10^3/uL (2.7-7.7); Neutrophil % 76.7 % (47-70); Platelet Count 199 K/mm3 (150-450); RBC Distribution Width CV 15.9 % (11.6-14.6); RBC Distribution Width SD 51.7 fl (35.1-43.9); Red Blood Count 4.38 M/mm3 (4.2-5.4); White Blood Count 11.4 K/mm3 (4.4-11.0)
[2020-12-31 11:06] LABS: International Normalized Ratio 1.5; Prothrombin Time (Protime)PT. 17.7 SECONDS (11.7-14.9)
[2020-12-31 11:07] LABS: Partial Thromboplast Time 32.9 Seconds (24.1-36.2)
[2020-12-31] MEDS: Morphine 2 MG/ML Syringe IV ×3 (11:11→15:43)
[2020-12-31] MEDS: Ondansetron 4 MG/2 ML Vial IV (11:11)
[2020-12-31 11:12] LABS: ALB/GLOB Ratio 0.7 RATIO (0.9-2.4); AST(SGOT) 18 U/L (15-37); Alanine Aminotransfer ALT/SGPT 43 U/L (13-56); Albumin, Serum 2.7 g/dL (3.2-5.0); Alkaline Phosphatase 142 U/L (45-117); Anion Gap 5 (5-15); BUN 39 mg/dL (7-18); BUN/Creat Ratio 20.5 RATIO (10-20); Calcium,Total 9.4 mg/dL (8.5-10.1); Chloride 104 mmol/L (98-107); EST Glomerular Filtration Rate 27 mL/min (>60); Est Glom Filt Rate - Afr Amer 32 mL/min (>60); Estimated Creatinine Clearance 27.62 ml/min; Globulin 3.7 g/dL (2.2-4.2); Glucose 82 mg/dL (74-106); Potassium 3.7 mmol/L (3.5-5.1); Protein, Total 6.4 g/dL (6.4-8.2); Sodium Level 139 mmol/L (136-145)
[2020-12-31 11:22] LABS: Lactic Acid 1.3 mmol/L (0.4-1.9)
--- NOTE | 2020-12-31 12:24 | CT_ITS ---
STUDY: CT ABDOMEN AND PELVIS WITHOUT CONTRAST REASON FOR EXAM: Female, 85 years old. Abscess versus bowel umbilical area RADIATION DOSAGE (If Supplied By Facility): CTDIvol = ( 18.68 ) mGy, DLP = ( 928.77 ) mGycm TECHNIQUE: Transaxial images were obtained from the dome of the diaphragm to the symphysis pubis without oral contrast, and without intravenous contrast. Sagittal and coronal images were reconstructed. Individualized dose optimization techniques were used for this CT. COMPARISON: Comparison is made with prior examination done earlier today. FINDINGS: The previously described soft tissue density with small amount of air within the collection in the deep subcutaneous tissues deep to the umbilicus does not represent bowel. There is evidence of prior mesh repair. CT/Abdomen/Pel W ORAL Cont Only IMPRESSION: The examination is unchanged. Electronically Signed: Sandoval Arteaga MD at 15:11 EDT , Service support ,
--- NOTE | 2020-12-31 16:03 | PCM.HP.STD ---
HPI - General General Date of Admission: 12/31/20 Date of Service: 12/31/20 Chief Complaint: Abdominal swelling, pain and redness - 3 days HPI Narrative LOLLY HUSAIN, is a 85 F who presents with periumbilical/abdominal pain and swelling ongoing for about 3 days. Most of the history was taken from the patient's daughter who is her primary caregiver at the bedside Patient had a fall a week ago; she fell on the carpet and is unsure if she bruised it. Over the last 3 days, patient had complained of abdominal pain and when the daughter evaluated it, she found it was red. She describes the pain as 7 out of 10, worse with touching, relieved by nothing. She denied any associated diarrhea or nausea or vomiting or fever or chills. She saw her primary care doctor yesterday and was started on Keflex. She had followed up with Dr. Saucedo in the office and was sent to the emergency room. [facility] Medical History Abnormal bruising Anxiety Chronic neck and back pain Difficulty balancing when standing DVT (deep venous thrombosis) Hearing loss, left Hearing loss, right Incontinence Knee pain Migraines Non-smoker On home oxygen therapy Polyosteoarthritis Polyosteoarthritis Severe headache Shoulder pain SOB (shortness of breath) Home Medications diphenoxylate-atropine [Lomotil] 2.5 mg PO TID PRN PRN 02/16/14 [History Last Taken Unknown] atenolol 25 mg PO BID 06/09/15 [History Last Taken 12/31/20] sumatriptan succinate [Imitrex] 100 mg PO .X1 PRN MDD MIGRAINE 06/09/15 [History Last Taken Unknown] multivitamin with folic acid [Thera] 1 tab PO DAILY 01/29/18 [History Last Taken 2 Weeks Ago ~12/17/20] furosemide 20 mg PO BID 07/21/18 [History Last Taken 12/31/20] ferrous sulfate 325 mg PO DAILY 10/19/19 [History Last Taken 12/31/20] solifenacin 10 mg PO DAILY 10/19/19 [History Last Taken 12/31/20] albuterol sulfate 1 - 2 puff INHALATION Q4H PRN PRN #1 inhaler 10/23/19 [Rx Last Taken Unknown] nystatin 1 applic TOPICAL TID #1 bottle 10/23/19 [Rx Last Taken 12/30/20] apixaban 5 mg PO BID 10/20/20 [History Last Taken 12/31/20] cephalexin 500 mg capsule 500 mg PO BID 12/31/20 [History Last Taken 12/31/20] duloxetine 60 mg PO BID 12/31/20 [History Last Taken 12/31/20] gabapentin 100 mg PO BID 12/31/20 [History Last Taken 12/31/20] gabapentin 300 mg capsule 300 mg PO QHS cap 12/31/20 [History Last Taken 12/30/20] hydroxychloroquine 200 mg tablet 200 mg PO BID tab 12/31/20 [History Last Taken 12/31/20] prednisone 10 mg tablet 10 mg PO DAILY PRN 12/31/20 [History Last Taken Unknown] ropinirole 0.5 mg tablet 0.5 mg PO QHS tab 12/31/20 [History Last Taken 12/30/20] Allergy/AdvReac Type Severity Reaction Status Date / Time No Known Allergies Allergy Verified 12/31/20 10:39 Family History (Updated 12/31/20 @ 19:[address] Julianne Parish MD) Mother No significant active problems Other Headache Surgical History History of appendectomy History of back surgery History of cholecystectomy History of foot surgery History of hernia surgery History of surgery on wrist Social History (Updated 12/31/20 @ 19:[address] Julianne Parish MD) household members: family housing: house Smoking Status: Never smoker alcohol intake: never ROS ROS Narrative Constitutional: Reports: Malaise, Weakness, Fatigue. Denies: Anorexia, Chills, Fever, Night Sweats, Weight Change Eyes: Denies: Blurred vision, Cataracts, Conjunctivae Inflammation, Pain, Redness, Vision Change HEENT: Denies: Difficulty Hearing, Difficulty Swallowing, Head Aches, Hearing Changes, Sinus Congestion, Sinus Drainage Cardiovascular: Denies: Chest Pain, Orthopnea, Palpitations Respiratory: Denies: Cough, Shortness of breath at rest, Sputum production Gastrointestinal: Admits to Abdominal Pain, Denies:Nausea, Vomiting Genitourinary: Denies: Dysuria Musculoskeletal: Denies: Joint Pain, Joint stiffness, Joint swelling, Joint Tenderness Skin: Denies: Rash, Wounds Neurological: Denies: Numbness, Tingling, Focal weakness Vital Signs Vital Signs Vital Signs: 12/31/20 10:10 12/31/20 10:25 12/31/20 11:11 Temperature 98.1 F 98.5 F Temperature Source Temporal Oral Pulse Rate 74 69 68 Respiratory Rate 16 21 H 16 Blood Pressure 124/61 H 124/86 H 148/104 H Blood Pressure Mean 82 98 118 Pulse Ox 98 98 97 Oxygen Delivery Method Room Air Room Air Room Air 12/31/20 12:04 12/31/20 13:00 12/31/20 14:09 Temperature 98.5 F 98.0 F 98.2 F Temperature Source Oral Oral Oral Pulse Rate 68 67 65 Respiratory Rate 16 16 19 H Blood Pressure 148/104 H 134/71 H 122/56 H Blood Pressure Mean 118 92 78 Pulse Ox 97 93 98 Oxygen Delivery Method Room Air Room Air Room Air Weight Weight: 79.379 kg Body Mass Index (BMI) 35.3 Physical Exam Narrative Physical exam: General: Alert, Oriented x3, Cooperative, No apparent distress, Well developed HEENT: Atraumatic Oral: Moist Mucosa Neck: Supple Lungs: Clear to auscultation Cardiovascular: HS I+II, regular, no murmurs Abdomen: Periumbilical swelling and redness, tender to palpation, bowel Sounds Present, Soft, other areas of the abdomen non Tender Extremities: No edema Skin: No rashes, No breakdown Neurological: Grossly intact Psych/Mental Status: Appropriate Lab / Micro Data Result Diagrams: 12/31/20 10:45 12/31/20 10:45 Labs: Laboratory Results - last 24 hr 12/31/20 12/31/20 12/31/20 10:45 10:45 10:45 WBC 11.4 H RBC 4.38 Hgb 12.3 Hct 39.2 MCV 89.5 MCH 28.1 MCHC 31.4 L RDW Std Deviation 51.7 H RDW Coeff of Laxmi 15.9 H Plt Count 199 MPV 8.8 Immature Gran % (Auto) 1.800 H Neut % (Auto) 76.7 H Lymph % (Auto) 8.6 L Floyd % (Auto) 12.3 H Eos % (Auto) 0.2 Baso % (Auto) 0.4 Absolute Neuts (auto) 8.8 H Absolute Lymphs (auto) 0.98 Nucleated RBC % 0 PT 17.7 H INR 1.5 APTT 32.9 Sodium 139 Potassium 3.7 Chloride 104 Carbon Dioxide 30.0 Anion Gap 5 BUN 39 H Creatinine 1.90 H Estim Creat Clear Calc 27.62 Est GFR (MDRD) Af Amer 32 L Est GFR (MDRD) Non-Af 27 L BUN/Creatinine Ratio 20.5 H Glucose 82 Lactic Acid Calcium 9.4 Total Bilirubin 0.40 AST 18 ALT 43 Alkaline Phosphatase 142 H Total Protein 6.4 Albumin 2.7 L Globulin 3.7 Albumin/Globulin Ratio 0.7 L 12/31/20 10:45 WBC RBC Hgb Hct MCV MCH MCHC RDW Std Deviation RDW Coeff of Laxmi Plt Count MPV Immature Gran % (Auto) Neut % (Auto) Lymph % (Auto) Floyd % (Auto) Eos % (Auto) Baso % (Auto) Absolute Neuts (auto) Absolute Lymphs (auto) Nucleated RBC % PT INR APTT Sodium Potassium Chloride Carbon Dioxide Anion Gap BUN Creatinine Estim Creat Clear Calc Est GFR (MDRD) Af Amer Est GFR (MDRD) Non-Af BUN/Creatinine Ratio Glucose Lactic Acid 1.3 Calcium Total Bilirubin AST ALT Alkaline Phosphatase Total Protein Albumin Globulin Albumin/Globulin Ratio Micro: Microbiology 12/31/20 13:25 SARS-CoV-2 Antigen (Rapid) - Final Interface Orders Radiology Impression Abdomen/Pelvis CT 12/31/20 10:25 IMPRESSION: Focal area of a soft tissue density with small amount of air bubbles within it suggestive of possible abscess deep in the subcutaneous tissue overlying the prior repair of the ventral hernia with a mesh. There is overlying skin thickening and increased markings in the subcutaneous fat worse on the right side of the midline. Electronically Signed: Sandoval Arteaga MD at 12:18 EDT , Service support , Abdomen CT 12/31/20 12:24 IMPRESSION: The examination is unchanged. Electronically Signed: Sandoval Arteaga MD at 15:11 EDT , Service support , Assessment & Plan Assessment/Plan (1) Cellulitis, umbilical: (2) Abdominal wall abscess: (3) Candidal intertrigo: (4) CKD (chronic kidney disease), stage IV: PLAN: 1. Acute anterior abdominal wall periumbilical cellulitis/abdominal wall abscess CT of the abdomen and pelvis confirms a 5 cm x 4.4 cm soft tissue density-abscess Patient is stable overall. [facility], general [facility] consult, Hold Eliquis, Ct guided IR drainage of anterior abdominal wall abscess in am IV Zosyn, follow-up on cultures, Consult ID 2. Severe Roseanna intertrigo, in bilateral inguinal and suprapubic regions Status post IV Diflucan x1 in the ED We will continue with topical nystatin powder today bilateral inguinal folds 3. Recent left posterior tibial vein DVT in August 2020, on Eliquis Eliquis will be held in anticipation of CT-guided IR drainage of abscess May be resumed if bleeding risks is stable 4. Rest of chronic medical problems including CKD stage IV, rheumatoid arthritis, hypertension -all remained stable Continue rest of her home medications Continue gentle IV fluids Repeat blood work in a.m. 5. DVT prophylaxis -SCDs on account of Eliquis being held 6. CODE STATUS: Full code I discussed and explained in details the various types of CODE STATUS-full code, DNR CCA, DNR CC. Patient chose to be full code and wants aggressive work-up. Time spent discussing CODE STATUS 16 minutes Visit Charges Inpatient E&M: 29063 Init Hosp L3 Procedures Hospitalists Procedures: 85907 Advncd Care Plan 30 Min
[2020-12-31] MEDS: 0.9% Normal Saline 1,000 ML 100 ML IV (18:14)
[2020-12-31] MEDS: Furosemide 20 MG Tablet PO (18:20)
[2020-12-31] MEDS: Hydroxychloroquine 200 MG Tablet PO (18:38)
--- NOTE | 2020-12-31 19:29 | PN_ITS ---
Progress Note Did review CT abdomen pelvis done in the ER. Patient does appear to have an abscess just anterior to her abdominal mesh in the subcutaneous tissue. Does not appear to involve the small bowel. Patient's mesh was placed in 2009 at the time of her gallbladder surgery. Patient did have Eliquis today. Thus we we will plan for IR guided drain placement which will take place tomorrow morning. We will continue IV antibiotics. Did discuss with the patient as well as her daughter that there could be a chance the mesh could become infected as there is an abscess near. However with her anticoagulation also of the core morbidities would not plan to mullins to surgery if we do not need to, pt was in agreement with plan. Did also discuss as well that if she did need surgery she would not be able to have mesh in this area may not heal well due to the current abscess so she would be at a higher risk for a recurrent hernia. We will continue to fo dawson. Prema Saucedo M.D. Pager: [phone] [facility] [address] [place] [address], [address] [place] [address] Office: [phone]
[2020-12-31] MEDS: DULoxetine Hcl 60 MG Capsule PO (20:15)
[2020-12-31] MEDS: Pramipexole Di-HCl 0.25 MG Tablet PO (20:15)
[2020-12-31] MEDS: Gabapentin 300 MG Capsule PO (20:16)
[2020-12-31] MEDS: Atenolol 25 MG Tablet PO (20:16)
[2020-12-31] MEDS: Nystatin Powder 15gm Bottle 1 APPLIC TOPICAL (20:45)
[2021-01-01] VITALS (13 sets, daily range): BP systolic 116–173; BP diastolic 43–102; PULSE 58–77; RESP 14–20; TEMP 36.6–37.4; O2SAT 95–100
[2021-01-01] MEDS: oxyCODONE 5 MG Tablet PO ×2 (02:34→15:51)
[2021-01-01] MEDS: Acetaminophen 325 MG Tablet 650 MG PO (02:34)
[2021-01-01] MEDS: 0.9% Normal Saline 1,000 ML 100 ML IV (04:01)
[2021-01-01] MEDS: Nystatin Powder 15gm Bottle 1 APPLIC TOPICAL ×3 (06:44→21:23)
[2021-01-01 07:06] LABS: Absolute Lymphocyte Count 0.62 X10^3/uL (0.83-4.51); Absolute Neutrophil Count 8.8 X10^3/uL (2.0-7.7); Basophil# 0.04 X10^3/uL; Basophil% 0.4 % (0-1); Eosinophil# 0.04 X10^3/uL; Eosinophils% 0.4 % (0-5); Hematocrit 36.8 % (37-47); Hemoglobin 11.6 g/dL (12.0-15.0); Lymphocyte # 0.62 X10^3/ul (0.83-4.51); Lymphocyte % 5.9 % (19-41); Mean Corp Hgb Conc 31.5 g/dL (32-36); Mean Corpuscular Volume 88.9 fL (81-99); Mean Platelet Vol. 9.5 fl (6.2-12.0); Monocyte# 0.93 X10^3/uL; Monocyte% 8.8 % (0-10); NRBC Flagged by Analyzer 0 % (0-5); Neutrophil # 8.82 X10^3/uL (2.7-7.7); Neutrophil % 83.3 % (47-70); Platelet Count 153 K/mm3 (150-450); RBC Distribution Width CV 15.9 % (11.6-14.6); Red Blood Count 4.14 M/mm3 (4.2-5.4); White Blood Count 10.6 K/mm3 (4.4-11.0)
[2021-01-01 07:34] LABS: ALB/GLOB Ratio 0.6 RATIO (0.9-2.4); AST(SGOT) 174 U/L (15-37); Alanine Aminotransfer ALT/SGPT 217 U/L (13-56); Albumin, Serum 2.2 g/dL (3.2-5.0); Alkaline Phosphatase 307 U/L (45-117); Anion Gap 4 (5-15); BUN 36 mg/dL (7-18); Calcium,Total 8.8 mg/dL (8.5-10.1); Chloride 110 mmol/L (98-107); EST Glomerular Filtration Rate 28 mL/min (>60); Est Glom Filt Rate - Afr Amer 34 mL/min (>60); Estimated Creatinine Clearance 28.32 ml/min; Globulin 3.6 g/dL (2.2-4.2); Glucose 91 mg/dL (74-106); Potassium 4.3 mmol/L (3.5-5.1); Protein, Total 5.8 g/dL (6.4-8.2); Sodium Level 135 mmol/L (136-145)
--- NOTE | 2021-01-01 09:06 | PN.SURG_ITS ---
Subjective Subjective Patient states her abdominal pain is about the same. Plan for IR percutaneous drain placement for the subcutaneous abscess Objective Data Objective Data Vital Signs: Vital Signs Temp Pulse Resp BP Pulse Ox 97.8 F 65 18 159/62 H 97 01/01/21 08:26 01/01/21 08:26 01/01/21 08:26 01/01/21 08:26 01/01/21 08:26 Oxygen Delivery Method Room Air Weight: 170 lb Body Mass Index (BMI) 34.3 Intake & Output: Intake and Output for Last 24 Hours 12/30/20 12/31/20 01/01/21 23:59 23:59 23:59 Intake Total 825 / 825 974.08 / 974.08 Output Total 400 / 400 400 / 400 Balance 425 / 425 574.08 / 574.08 Lab / Micro Data Result Diagrams: 01/01/21 06:50 01/01/21 06:50 Labs: Laboratory Results - last 24 hr 12/31/20 12/31/20 12/31/20 10:45 10:45 10:45 WBC 11.4 H RBC 4.38 Hgb 12.3 Hct 39.2 MCV 89.5 MCH 28.1 MCHC 31.4 L RDW Std Deviation 51.7 H RDW Coeff of Laxmi 15.9 H Plt Count 199 MPV 8.8 Immature Gran % (Auto) 1.800 H Neut % (Auto) 76.7 H Lymph % (Auto) 8.6 L [place] % (Auto) 12.3 H Eos % (Auto) 0.2 Baso % (Auto) 0.4 Absolute Neuts (auto) 8.8 H Absolute Lymphs (auto) 0.98 Nucleated RBC % 0 PT 17.7 H INR 1.5 APTT 32.9 Sodium 139 Potassium 3.7 Chloride 104 Carbon Dioxide 30.0 Anion Gap 5 BUN 39 H Creatinine 1.90 H Estim Creat Clear Calc 27.62 Est GFR (MDRD) Af Amer 32 L Est GFR (MDRD) Non-Af 27 L BUN/Creatinine Ratio 20.5 H Glucose 82 Lactic Acid Calcium 9.4 Total Bilirubin 0.40 AST 18 ALT 43 Alkaline Phosphatase 142 H Total Protein 6.4 Albumin 2.7 L Globulin 3.7 Albumin/Globulin Ratio 0.7 L 12/31/20 01/01/21 01/01/21 10:45 06:50 06:50 WBC 10.6 RBC 4.14 L Hgb 11.6 L Hct 36.8 L MCV 88.9 MCH 28.0 MCHC 31.5 L RDW Std Deviation 52.0 H RDW Coeff of Laxmi 15.9 H Plt Count 153 MPV 9.5 Immature Gran % (Auto) 1.200 H Neut % (Auto) 83.3 H Lymph % (Auto) 5.9 L [place] % (Auto) 8.8 Eos % (Auto) 0.4 Baso % (Auto) 0.4 Absolute Neuts (auto) 8.8 H Absolute Lymphs (auto) 0.62 L Nucleated RBC % 0 PT INR APTT Sodium 135 L Potassium 4.3 Chloride 110 H Carbon Dioxide 21.0 Anion Gap 4 L BUN 36 H Creatinine 1.80 H Estim Creat Clear Calc 28.32 Est GFR (MDRD) Af Amer 34 L Est GFR (MDRD) Non-Af 28 L BUN/Creatinine Ratio 20.0 Glucose 91 Lactic Acid 1.3 Calcium 8.8 Total Bilirubin 0.50 AST 174 H ALT 217 H Alkaline Phosphatase 307 H Total Protein 5.8 L Albumin 2.2 L Globulin 3.6 Albumin/Globulin Ratio 0.6 L Micro: Microbiology 12/31/20 13:25 Interface Orders SARS-CoV-2 Antigen (Rapid) - Final Radiography Diagnostic Testing: Radiology Impression Abdomen/Pelvis CT 12/31/20 10:25 IMPRESSION: Focal area of a soft tissue density with small amount of air bubbles within it suggestive of possible abscess deep in the subcutaneous tissue overlying the prior repair of the ventral hernia with a mesh. There is overlying skin thickening and increased markings in the subcutaneous fat worse on the right side of the midline. Electronically Signed: Sandoval Arteaga MD at 12:18 EDT , Service support , Abdomen CT 12/31/20 12:24 IMPRESSION: The examination is unchanged. Electronically Signed: Sandoval Arteaga MD at 15:11 EDT , Service support , Physical Exam Const no apparent distress Resp normal respiratory effort Cardio regular rate GI soft to palpation Palpation: tender other (Near umbilicus, erythema induration about 10 cm x 10 cm , may be a slightly improvement of the erythema at the distal marked border) Assessment & Plan Assessment/Plan (1) Abdominal wall abscess: PLAN: Patient will get IR placed drain today about 10:00 for the subcutaneous abscess. Patient last took Eliquis yesterday morning. Patient does have previously placed mesh at the umbilicus that was placed in 2009. Did discuss with patient that there is a chance that this mesh may have to be removed in the future, currently does not appear that there is any involvement of small bowel per CT scan and patient is having normal bowel function. Continue IV Zosyn/Vanco will get cultures once drain is placed. Dr. Cooper will be rounding over the weekend Prema Saucedo M.D. Pager: [phone] [facility] [address] [place] [address], [facility], [address] [place] [address] Office: [phone] Visit Charges Inpatient E&M: 72784 Subs Hosp L2
--- NOTE | 2021-01-01 10:15 | CT_ITS ---
PROCEDURE: Percutaneous drainage of the periumbilical abscess cavity. DATE OF EXAMINATION: 01/01/2021. INDICATION: Female, 85 years old. Periumbilical abscess formation following ventral hernia repair with mesh. PHYSICIAN: Dr. SEBASTIAN Goodwin RADIATION DOSAGE (If Supplied By Facility): CTDIvol = ( 25.2 ) mGy, DLP = ( 1256.74 ) mGycm. Individualized dose optimization techniques were utilized. CONSENT: The risks, benefits and alternatives to the procedure were explained to the patient, and the patient agreed to the procedure and signed the consent. SEDATION: Conscious sedation was performed. The patient received 1 mg of VERSED and 25 mcg of FENTANYL intravenously. Conscious sedation was started at 10:29 AM 10:54 AM. The patient was independently monitored by the department nurse. STERILE BARRIER TECHNIQUE: The following sterile barrier precautions were used during the procedure: hand hygiene; use of 2% chlorhexidine aseptic; use of a cap, mask, sterile gown, sterile gloves, sterile full body drape, and a large sterile sheet. PROCEDURE/TECHNIQUE: (All elements of maximal sterile barrier technique followed, including US elements as applicable) The risks, benefits, and alternatives to the procedure were explained to patient, and the patient agreed to the procedure and signed a consent form for the procedure. A timeout was performed to confirm the patient''s identity, the type of procedure, to be performed and the site of entry. The overlying skin was prepped and draped in the usual sterile fashion. An 8 Bengali percutaneous drainage catheter was placed into the soft tissue density deep to the umbilicus. Approximately 10 cc of bloody fluid was aspirated. The catheter was left to drain by gravity. CT/CT Guidance Abscess Drg w/Cath IMPRESSION: Percutaneous drainage catheter placed in the collection deep to the umbilicus. The patient tolerated the procedure well. Electronically Signed: Sandoval Arteaga MD at 12:57 EDT , Service support ,
--- NOTE | 2021-01-01 10:16 | NURSING ---
PT ARRIVES FROM [facility]. PT CONVERSIVE AND ORIENTED. ABD REDNESS MARKED. PATIENT STATES PAIN, 10. VERBAL EXPLANATION OF PROCEDURE AND HANDOUT REVIEWED. PT DENIES QUESTIONS. IV PATENT WITH FLUSH.
[2021-01-01] MEDS: Midazolam 2 MG/2 ML Syringe IV (10:29)
[2021-01-01] MEDS: fentaNYL 100 MCG/2 ML Ampul IV (10:29)
--- NOTE | 2021-01-01 12:00 | CASEMGMT ---
Palliative screening tool completed at this time for [facility]. Patient meets criteria at this time. Hospitalist notified. Hospitalist wishes to review chart and make determination later. Hospitalist will place order if she decides appropriate for consult.
[2021-01-01] MEDS: Morphine 2 MG/ML Syringe IV (13:25)
[2021-01-01] MEDS: Lidocaine 1% /Epi 1:100 (20ml) 20 ML Vial INFILT (13:29)
--- NOTE | 2021-01-01 13:33 | PCM.OPRPT ---
Report of Operation Date of Procedure: 01/01/21 Pre-Operative Diagnosis: Abdominal abscess near umbilicus Post-Operative Diagnosis: Same Surgery/Procedure Performed:: Aspiration of abdominal abscess the umbilicus with 18-gauge needle Surgeon: Prema Saucedo Type of Anesthesia: Local Specimen's removed: Purulent fluid from abscess for culture Description of Procedure: 85-year-old female with an abdominal abscess near her umbilicus however patient did take her Eliquis yesterday. Patient did go down for an IR guided drain however they did not get any fluid out for culture. Drain is in place however only small amount of sanguinous fluid has drained. Did look with the ultrasound, there is an area of fluid just to the right of the umbilicus that I think it would be able to aspirate. Consent was signed. The skin was prepped draped in usual sterile fashion with alcohol. Ultrasound is used for guidance. Local anesthesia of 1% lidocaine with epinephrine was used. 18-gauge was used to aspirate the fluid and got a total of about 2 cc of purulent material. This was sent for culture. She did have some bleeding from the needle sticks due to the Eliquis controlled with pressure dressing.
--- NOTE | 2021-01-01 13:35 | CON.PCM.ID_ITS ---
Assessment & Plan Assessment/Plan (1) CKD (chronic kidney disease), stage IV: (2) Rheumatoid arthritis: (3) Abdominal wall abscess: PLAN: Drain placement and aspiration today, on vanc/zosyn, will follow cx results. Will follow, thank you, d/w Dr. Saucedo. HPI Consult Data Date of Consult: 01/01/21 HPI Narrative HPI Narrative: LOLLY HUSAIN, is a 85 F with prior umbilical hernia repair, presented 12/31 with 3-4 days of abd pain, swelling, redness. No fever, no n/v/d, no drainage. Reports she has gotten covid shots. Was started on keflex and nystatin powder at [facility]. Seen by Dr. Saucedo in the office, sent to ED, admitted on vanc/zosyn, drain placed this AM. Full ROS performed and neg except as noted above. [facility] Medical History Abnormal bruising Anxiety Chronic neck and back pain Difficulty balancing when standing DVT (deep venous thrombosis) Hearing loss, left Hearing loss, right Incontinence Knee pain Migraines Non-smoker On home oxygen therapy Polyosteoarthritis Polyosteoarthritis Severe headache Shoulder pain SOB (shortness of breath) Home Medications diphenoxylate-atropine [Lomotil] 2.5 mg PO TID PRN PRN 02/16/14 [History Last Taken Unknown] atenolol 25 mg PO BID 06/09/15 [History Last Taken 12/31/20] sumatriptan succinate [Imitrex] 100 mg PO .X1 PRN MDD MIGRAINE 06/09/15 [History Last Taken Unknown] multivitamin with folic acid [Thera] 1 tab PO DAILY 01/29/18 [History Last Taken 2 Weeks Ago ~12/17/20] furosemide 20 mg PO BID 07/21/18 [History Last Taken 12/31/20] ferrous sulfate 325 mg PO DAILY 10/19/19 [History Last Taken 12/31/20] solifenacin 10 mg PO DAILY 10/19/19 [History Last Taken 12/31/20] albuterol sulfate 1 - 2 puff INHALATION Q4H PRN PRN #1 inhaler 10/23/19 [Rx Last Taken Unknown] nystatin 1 applic TOPICAL TID #1 bottle 10/23/19 [Rx Last Taken 12/30/20] apixaban 5 mg PO BID 10/20/20 [History Last Taken 12/31/20] cephalexin 500 mg capsule 500 mg PO BID 12/31/20 [History Last Taken 12/31/20] duloxetine 60 mg PO BID 12/31/20 [History Last Taken 12/31/20] gabapentin 100 mg PO BID 12/31/20 [History Last Taken 12/31/20] gabapentin 300 mg capsule 300 mg PO QHS cap 12/31/20 [History Last Taken 12/30/20] hydroxychloroquine 200 mg tablet 200 mg PO BID tab 12/31/20 [History Last Taken 12/31/20] prednisone 10 mg tablet 10 mg PO DAILY PRN 12/31/20 [History Last Taken Unknown] ropinirole 0.5 mg tablet 0.5 mg PO QHS tab 12/31/20 [History Last Taken 12/06 01/25] Allergy/AdvReac Type Severity Reaction Status Date / Time No Known Allergies Allergy Verified 12/31/20 10:39 Family History (Updated 12/31/20 @ 19:[address] Julianne Parish MD) Mother No significant active problems Other Headache Surgical History History of appendectomy History of back surgery History of cholecystectomy History of foot surgery History of hernia surgery History of surgery on wrist Social History (Updated 12/31/20 @ 19:[address] Julianne Parish MD) household members: family housing: house Smoking Status: Never smoker alcohol intake: never Physical Exam Const no apparent distress General Appearance: cooperative HEENT normocephalic and head/scalp atraumatic Eyes PERRL and EOMs intact bilaterally Neck supple and No nodes Resp normal air movement and clear to auscultation bilaterally Cardio regular rate and regular rhythm GI GI Narrative: abd central redness, induration, tenderness, drain in place Extremity no clubbing, cyanosis or edema Skin Skin Narrative: no other rash Neuro CN's II-XII intact bilaterally Lab / Micro Data Result Diagrams: 01/01/21 06:50 01/01/21 06:50 Labs: Laboratory Results - last 24 hr 01/01/21 01/01/21 06:50 06:50 WBC 10.6 RBC 4.14 L Hgb 11.6 L Hct 36.8 L MCV 88.9 MCH 28.0 MCHC 31.5 L RDW Std Deviation 52.0 H RDW Coeff of Laxmi 15.9 H Plt Count 153 MPV 9.5 Immature Gran % (Auto) 1.200 H Neut % (Auto) 83.3 H Lymph % (Auto) 5.9 L [place] % (Auto) 8.8 Eos % (Auto) 0.4 Baso % (Auto) 0.4 Absolute Neuts (auto) 8.8 H Absolute Lymphs (auto) 0.62 L Nucleated RBC % 0 Sodium 135 L Potassium 4.3 Chloride 110 H Carbon Dioxide 21.0 Anion Gap 4 L BUN 36 H Creatinine 1.80 H Estim Creat Clear Calc 28.32 Est GFR (MDRD) Af Amer 34 L Est GFR (MDRD) Non-Af 28 L BUN/Creatinine Ratio 20.0 Glucose 91 Calcium 8.8 Total Bilirubin 0.50 AST 174 H ALT 217 H Alkaline Phosphatase 307 H Total Protein 5.8 L Albumin 2.2 L Globulin 3.6 Albumin/Globulin Ratio 0.6 L Micro: Microbiology 12/31/20 11:25 Urine Culture - Preliminary Urine, Catheterized Culture exhibits no growth. 12/31/20 13:25 SARS-CoV-2 Antigen (Rapid) - Final Interface Orders Radiology Impression Abdomen CT 12/31/20 12:24 IMPRESSION: The examination is unchanged. Electronically Signed: Sandoval Arteaga MD at 15:11 EDT , Service support , Abscess Drainage CT 01/01/21 10:15 IMPRESSION: Percutaneous drainage catheter placed in the collection deep to the umbilicus. The patient tolerated the procedure well. Electronically Signed: Sandoval Arteaga MD at 12:57 EDT , Service support ,
--- NOTE | 2021-01-01 14:45 | CASEMGMT ---
MINH BORJA Face to Face with patient for initial transition planning/care coordination assessment. RN CM introduced self and role at [facility]. Patient lying in bed, alert and oriented, daughter at bedside. Patient willing to participate in assessment and is able to answer all questions appropriately. Care providers, pharmacy, and demographics verified. Patient wishes to discharge home and is interested in C.Patient was provided a list of [facility] providers including quality and resource use data and consistent with the patient?s preferred geographic region, medical needs, and insurance network. The patient?s preferred provider is [facility]. Referral sent to [facility] and they are able to accept the patient. RN CM updated the patient and daughter. Patient states she has no further needs or concerns at this time. CM to follow for discharge planning needs that may arise. PCP: Aneudy Specialists: Liya halal butcher; dolores Jimenez; RA Ade Preferred Pharmacy: [facility] Insurance: [employer] Prescription Benefit: Yes Living Will/HPOA: yes, daughter Candi Torres LNOK: daughter, son Living Arrangements: Patient lives with daughter in a 1 story home with 3-4 steps and railing to enter the home. Daughter assist patient with ADLs. Transportation: daughter DME/HHC: Patient has shower chair, raised toilet, cane, walker, wheelchair, grab bars, and home oxygen through [facility] as needed with portability. Patient has had [facility] in the past. Disposition Plan: Patient to discharge home with HHC, family support, and follow-up plans in place. Kymberly MORRIS, RN, CM
[2021-01-01] MEDS: Gabapentin 100 MG Capsule PO ×2 (14:51→18:34)
[2021-01-01] MEDS: DULoxetine Hcl 60 MG Capsule PO ×2 (14:51→21:23)
[2021-01-01] MEDS: Multivitamins,Ther W-Minerals Tablet 1 TABLET PO (14:51)
[2021-01-01] MEDS: Hydroxychloroquine 200 MG Tablet PO ×2 (14:51→17:53)
[2021-01-01] MEDS: Tolterodine Tartrate 4 MG CAP.SA PO (14:52)
[2021-01-01] MEDS: Atenolol 25 MG Tablet PO ×2 (14:52→21:24)
[2021-01-01] MEDS: Ferrous Sulfate 325 MG Tablet PO (14:53)
--- NOTE | 2021-01-01 15:12 | PCM.PN.HOSP ---
Subjective Subjective Patient reports that she continues to have abdominal pain in the area of erythema. She reports that it may be a little bit better. She is awaiting drain placement. Objective Data Objective Data Vital Signs: Vital Signs Temp Pulse Resp BP Pulse Ox 99.4 F H 77 18 167/55 H 97 01/01/21 14:48 01/01/21 14:48 01/01/21 14:48 01/01/21 14:48 01/01/21 14:48 Oxygen Flow Rate (L/min) [6] 2 Oxygen Flow Rate (L/min) [5] 2 Oxygen Flow Rate (L/min) [4] 2 Oxygen Flow Rate (L/min) [3] 2 Oxygen Flow Rate (L/min) [2] 2 Oxygen Flow Rate (L/min) [1 ( 2 Initial Baseline)] Oxygen Flow Rate (L/min) 2 Oxygen Delivery Method [6] Nasal Cannula Oxygen Delivery Method [5] Nasal Cannula Oxygen Delivery Method [4] Nasal Cannula Oxygen Delivery Method [3] Nasal Cannula Oxygen Delivery Method [2] Nasal Cannula Oxygen Delivery Method [1 ( Nasal Cannula Initial Baseline)] Oxygen Delivery Method Room Air Weight: 77.111 kg Body Mass Index (BMI) 34.3 Intake & Output: Intake and Output for Last 24 Hours 12/30/20 12/31/20 01/01/21 23:59 23:59 23:59 Intake Total 825 / 825 2049.08 / 2049.08 Output Total 400 / 400 820 / 820 Balance 425 / 425 1229.08 / 1229.08 Lab / Micro Data Result Diagrams: 01/01/21 06:50 01/01/21 06:50 Labs: Laboratory Results - last 24 hr 01/01/21 01/01/21 06:50 06:50 WBC 10.6 RBC 4.14 L Hgb 11.6 L Hct 36.8 L MCV 88.9 MCH 28.0 MCHC 31.5 L RDW Std Deviation 52.0 H RDW Coeff of Laxmi 15.9 H Plt Count 153 MPV 9.5 Immature Gran % (Auto) 1.200 H Neut % (Auto) 83.3 H Lymph % (Auto) 5.9 L [place] % (Auto) 8.8 Eos % (Auto) 0.4 Baso % (Auto) 0.4 Absolute Neuts (auto) 8.8 H Absolute Lymphs (auto) 0.62 L Nucleated RBC % 0 Sodium 135 L Potassium 4.3 Chloride 110 H Carbon Dioxide 21.0 Anion Gap 4 L BUN 36 H Creatinine 1.80 H Estim Creat Clear Calc 28.32 Est GFR (MDRD) Af Amer 34 L Est GFR (MDRD) Non-Af 28 L BUN/Creatinine Ratio 20.0 Glucose 91 Calcium 8.8 Total Bilirubin 0.50 AST 174 H ALT 217 H Alkaline Phosphatase 307 H Total Protein 5.8 L Albumin 2.2 L Globulin 3.6 Albumin/Globulin Ratio 0.6 L Micro: Microbiology 01/01/21 13:30 Wound Abcess - Abdominal Gram Stain - Final 12/31/20 11:25 Urine, Catheterized Urine Culture - Preliminary Culture exhibits no growth. 12/31/20 13:25 Interface Orders SARS-CoV-2 Antigen (Rapid) - Final Radiography Diagnostic Testing: Radiology Impression Abdomen CT 12/31/20 12:24 IMPRESSION: The examination is unchanged. Electronically Signed: Sandoval Arteaga MD at 15:11 EDT , Service support , Abscess Drainage CT 01/01/21 10:15 IMPRESSION: Percutaneous drainage catheter placed in the collection deep to the umbilicus. The patient tolerated the procedure well. Electronically Signed: Sandoval Arteaga MD at 12:57 EDT , Service support , Physical Exam Const alert, oriented x3 and no apparent distress Constitutional Narrative: Obese elderly white female, lying in bed watching television, appears comfortable, awaiting drain placement this morning Exam Limitations: no limitations HEENT head/scalp atraumatic, moist oral mucous membranes and oropharynx normal HEENT Narrative: Edentulous, Mallampati 2, no thrush Head and Scalp: normocephalic Mouth: oral and palatal mucosa normal Eyes PERRL, EOMs intact bilaterally and conjunctivae normal Neck supple Neck Narrative: Trachea midline Resp normal respiratory effort, no retractions, no use of accessory muscles and clear to auscultation bilaterally Auscultation: Negative for crackles, rales, rhonchi or wheezes Cardio regular rate, regular rhythm, S1 normal heart sound, S2 normal heart sound, no murmurs, no rub, no gallops, no clicks and no JVD GI soft to palpation, non-tender and non-distended; Negative for hepatosplenomegaly GI Narrative: Abdomen with periumbilical erythema and mild induration/tenderness/warmth, erythematous area seems to have been retracted as there has been an outline from admission placed on the skin Auscultation: Negative for hyperactive bowel sounds or hypoactive bowel sounds Palpation: Negative for tender, guarding or hernia Extremity normal to inspection and no clubbing, cyanosis or edema Peripheral Pulses: Yes pulses 2+ throughout Skin no wounds, skin turgor normal, no jaundice, no petechiae and no mottling Skin Narrative: Abdominal cellulitis as described above, intertrigo yeast in inquinal folds and suprapubic area Neuro oriented x3, CN's II-XII intact bilaterally, moves all extremities and no focal motor deficits Sensorium / Orientation: awake, alert, oriented to person, oriented to place and oriented to time Speech: speech normal Psych affect normal Psych Narrative: Very pleasant mildly anxious Mood & Affect: Negative for depressed Assessment & Plan Assessment/Plan (1) Abdominal wall abscess: (2) CKD (chronic kidney disease), stage IV: (3) Anemia: QUALIFIERS: Anemia type: iron deficiency Iron deficiency anemia type: chronic blood loss Qualified Code(s): D50.0 - Iron deficiency anemia secondary to blood loss (chronic) (4) Transaminitis: PLAN: Abdominal wall abscess -Continue vancomycin and Zosyn -Drain placed in IR this a.m. -Awaiting cultures from drain -Blood cultures are pending -Urine culture is negative -Continue pain medication -Appreciate ID and general surgery input Transaminitis -Suspect related to acute infection and possibly antibiotics -Repeat LFTs in a.m. -Patient is without right upper quadrant pain Severe Roseanna intertrigo -Located in bilateral inguinal and suprapubic regions -Diflucan given in ED -Continue topical nystatin -Purwick in place CKD stage IV Serum creatinine is stable Baseline creatinine appears to be 1.8-1.9 Continue to monitor Avoid nephrotoxins as able Recent left posterior tibial vein DVT in 08/2020 -Has been on Eliquis for anticoagulation -Hold for the time being given IR drain placement -Restart tomorrow if okay with general surgery Hypertension -Continue home medications -Discontinue IV fluids Rheumatoid arthritis -Continue home medications -Patient is on chronic steroids -Monitor need for stress dose Chronic anemia secondary to renal disease -Patient is on iron supplementation--> continue -Monitor -CBC in a.m. Restless leg syndrome -Continue Mirapex History of migraines -Continue as needed home meds Peripheral neuropathy -Continue home gabapentin Depression Continue home Cymbalta Obesity -recommend wgt loss DVT prophylaxis -Restart Eliquis tomorrow if okay with general surgery -SCDs CODE STATUS -Full code -Patient with multiple comorbidities and qualifies for palliative care consult--> will have palliative care follow the patient given her renal disease and other comorbidities for help with outpatient issues and CODE STATUS discussions Visit Charges Inpatient E&M: 90597 Subs Hosp L2
--- NOTE | 2021-01-01 16:12 | NURSING ---
SPOKE WITH PALLIATIVE CARE & GAVE PT INFO. WILL FAX FACE SHEET PER REQUEST.
--- NOTE | 2021-01-01 16:24 | PCM.RX.CS ---
Consult Pharmacy has been consulted to manage selected antiobiotic: Vancomycin Type of Consult: New start Suspected Infection: Skin/Soft tissue Prior Doses of Antibiotics Received/Current Regimen: received vancomycin 1250mg IV x1 in E.R. yesterday starting at 11:11 Labs: Sodium 135 mmol/L (136-145) L 01/01/21 06:50 Potassium 4.3 mmol/L (3.5-5.1) 01/01/21 06:50 Chloride 110 mmol/L (98-107) H 01/01/21 06:50 Carbon Dioxide 21.0 mmol/L (21.0-32.0) 01/01/21 06:50 Anion Gap 4 (5-15) L 01/01/21 06:50 BUN 36 mg/dL (7-18) H 01/01/21 06:50 Creatinine 1.80 mg/dL (0.55-1.02) H 01/01/21 06:50 Est GFR (MDRD) Af Amer 34 mL/min (>60) L 01/01/21 06:50 Est GFR (MDRD) Non-Af 28 mL/min (>60) L 01/01/21 06:50 BUN/Creatinine Ratio 20.0 RATIO (10-20) 01/01/21 06:50 Glucose 91 mg/dL (74-106) 01/01/21 06:50 Microbiology: Microbiology 01/01/21 13:30 Wound Abcess - Abdominal Gram Stain - Final 12/31/20 11:25 Urine, Catheterized Urine Culture - Preliminary Culture exhibits no growth. 12/31/20 13:25 Interface Orders SARS-CoV-2 Antigen (Rapid) - Final Weight used for dosin.1 kg Estimated Creatinine Clearance: 21 ml/min Goal Trough: 15-20 mcg/mL Pharmacy Plan for Drug Dosing: Since the patient received a dose of 1250mg yesterday in E.R., will not reload again today with that dose but will continue with a maintenance dose of 750mg IV q24h. Will still check a trough before the 3rd total dose since the patient's CrCl is only slightly above 20. Pharmacy Service will continue to monitor and adjust dosing as required. Follow-Up Labs: Trough Vancomycin Labs to be done on [date and time ordered]: 01/02/21 before the evening's dose
[2021-01-01] MEDS: Gabapentin 300 MG Capsule PO (17:53)
[2021-01-01] MEDS: Pramipexole Di-HCl 0.25 MG Tablet PO (21:23)
[2021-01-02 02:00] VITALS: BP 144/65; PULSE 76; RESP 18; TEMP 36.4; O2SAT 99
[2021-01-02] MEDS: Nystatin Powder 15gm Bottle 1 APPLIC TOPICAL ×3 (05:48→22:09)
--- NOTE | 2021-01-02 07:21 | PCM.PN.SRG ---
Subjective Subjective The patient reports some improvement in the pain in her umbilical region. Objective Data Objective Data Vital Signs: Vital Signs Temp Pulse Resp BP Pulse Ox 97.6 F L 76 18 144/65 H 99 01/02/21 02:00 01/02/21 02:00 01/02/21 02:00 01/02/21 02:00 01/02/21 02:00 Oxygen Flow Rate (L/min) [6] 2 Oxygen Flow Rate (L/min) [5] 2 Oxygen Flow Rate (L/min) [4] 2 Oxygen Flow Rate (L/min) [3] 2 Oxygen Flow Rate (L/min) [2] 2 Oxygen Flow Rate (L/min) [1 ( 2 Initial Baseline)] Oxygen Flow Rate (L/min) 2 Oxygen Delivery Method [6] Nasal Cannula Oxygen Delivery Method [5] Nasal Cannula Oxygen Delivery Method [4] Nasal Cannula Oxygen Delivery Method [3] Nasal Cannula Oxygen Delivery Method [2] Nasal Cannula Oxygen Delivery Method [1 ( Nasal Cannula Initial Baseline)] Oxygen Delivery Method Room Air Weight: 170 lb Body Mass Index (BMI) 34.3 Intake & Output: Intake and Output for Last 24 Hours 12/31/20 01/01/21 01/02/21 23:59 23:59 23:59 Intake Total 825 / 825 3064.08 / 3164.08 200 / 200 Output Total 400 / 400 1100 / 1200 300 / 300 Balance 425 / 425 1964.08 / 1964.08 -100 / -100 Lab / Micro Data Result Diagrams: 01/01/21 06:50 01/01/21 06:50 Labs: Laboratory Results - last 24 hr 01/01/21 01/01/21 06:50 06:50 WBC 10.6 RBC 4.14 L Hgb 11.6 L Hct 36.8 L MCV 88.9 MCH 28.0 MCHC 31.5 L RDW Std Deviation 52.0 H RDW Coeff of Laxmi 15.9 H Plt Count 153 MPV 9.5 Immature Gran % (Auto) 1.200 H Neut % (Auto) 83.3 H Lymph % (Auto) 5.9 L [place] % (Auto) 8.8 Eos % (Auto) 0.4 Baso % (Auto) 0.4 Absolute Neuts (auto) 8.8 H Absolute Lymphs (auto) 0.62 L Nucleated RBC % 0 Sodium 135 L Potassium 4.3 Chloride 110 H Carbon Dioxide 21.0 Anion Gap 4 L BUN 36 H Creatinine 1.80 H Estim Creat Clear Calc 28.32 Est GFR (MDRD) Af Amer 34 L Est GFR (MDRD) Non-Af 28 L BUN/Creatinine Ratio 20.0 Glucose 91 Calcium 8.8 Total Bilirubin 0.50 AST 174 H ALT 217 H Alkaline Phosphatase 307 H Total Protein 5.8 L Albumin 2.2 L Globulin 3.6 Albumin/Globulin Ratio 0.6 L Micro: Microbiology 01/01/21 13:30 Wound Abcess - Abdominal Gram Stain - Final 12/31/20 11:25 Urine, Catheterized Urine Culture - Preliminary Culture exhibits no growth. 12/31/20 13:25 Interface Orders SARS-CoV-2 Antigen (Rapid) - Final Radiography Diagnostic Testing: Radiology Impression Abscess Drainage CT 01/01/21 10:15 IMPRESSION: Percutaneous drainage catheter placed in the collection deep to the umbilicus. The patient tolerated the procedure well. Electronically Signed: Sandoval Arteaga MD at 12:57 EDT , Service support , Physical Exam Narrative Cellulitis seems to be receding. There is still an area of firmness and redness in the middle. There is minimal output from the drain. Assessment & Plan Assessment/Plan (1) Abdominal wall abscess: PLAN: The patient seems to be improving. I did not see the patient yesterday but her cellulitis seems to be receding from the area that was marked. There is minimal output from the drain and I will remove this either later today or tomorrow as the patient was on Eliquis. The cultures of the abscess are pending. The patient is tolerating antibiotics and a regular diet. Nnamdi Cooper MD Pager: [facility] [address] [place] [address], [address] [place] [phone] Office:
[2021-01-02 08:28] LABS: Absolute Lymphocyte Count 0.61 X10^3/uL (0.83-4.51); Absolute Neutrophil Count 8.6 X10^3/uL (2.0-7.7); Basophil# 0.04 X10^3/uL; Basophil% 0.4 % (0-1); Eosinophil# 0.07 X10^3/uL; Eosinophils% 0.7 % (0-5); Hemoglobin 11.1 g/dL (12.0-15.0); Lymphocyte # 0.61 X10^3/ul (0.83-4.51); Mean Corp Hgb Conc 30.8 g/dL (32-36); Mean Corpuscular Volume 90.7 fL (81-99); Mean Platelet Vol. 9.1 fl (6.2-12.0); Monocyte# 0.73 X10^3/uL; Monocyte% 7.2 % (0-10); NRBC Flagged by Analyzer 0 % (0-5); Neutrophil # 8.55 X10^3/uL (2.7-7.7); Neutrophil % 84.5 % (47-70); Platelet Count 181 K/mm3 (150-450); RBC Distribution Width CV 15.9 % (11.6-14.6); RBC Distribution Width SD 52.6 fl (35.1-43.9); Red Blood Count 3.97 M/mm3 (4.2-5.4); White Blood Count 10.1 K/mm3 (4.4-11.0)
[2021-01-02] MEDS: Gabapentin 100 MG Capsule PO ×2 (08:39→16:49)
[2021-01-02] MEDS: Multivitamins,Ther W-Minerals Tablet 1 TABLET PO (08:39)
[2021-01-02] MEDS: Tolterodine Tartrate 4 MG CAP.SA PO (08:39)
[2021-01-02] MEDS: Hydroxychloroquine 200 MG Tablet PO ×2 (08:40→16:49)
[2021-01-02] MEDS: DULoxetine Hcl 60 MG Capsule PO ×2 (08:40→22:01)
[2021-01-02] MEDS: Atenolol 25 MG Tablet PO ×2 (08:40→22:01)
[2021-01-02] MEDS: Ferrous Sulfate 325 MG Tablet PO (08:43)
[2021-01-02 08:46] VITALS: BP 142/65; PULSE 73; RESP 16; TEMP 36.4; O2SAT 94
[2021-01-02 08:46] LABS: ALB/GLOB Ratio 0.7 RATIO (0.9-2.4); AST(SGOT) 48 U/L (15-37); Alanine Aminotransfer ALT/SGPT 137 U/L (13-56); Albumin, Serum 2.3 g/dL (3.2-5.0); Alkaline Phosphatase 276 U/L (45-117); Anion Gap 3 (5-15); BUN 31 mg/dL (7-18); BUN/Creat Ratio 19.5 RATIO (10-20); Calcium,Total 8.8 mg/dL (8.5-10.1); Chloride 109 mmol/L (98-107); Creatinine, Serum 1.59 mg/dL (0.55-1.02); EST Glomerular Filtration Rate 33 mL/min (>60); Est Glom Filt Rate - Afr Amer 40 mL/min (>60); Estimated Creatinine Clearance 32.06 ml/min; Globulin 3.4 g/dL (2.2-4.2); Glucose 96 mg/dL (74-106); Potassium 4.3 mmol/L (3.5-5.1); Protein, Total 5.7 g/dL (6.4-8.2); Sodium Level 140 mmol/L (136-145)
[2021-01-02] MEDS: oxyCODONE 5 MG Tablet PO ×2 (09:48→18:26)
[2021-01-02 11:57] VITALS: BP 182/71; PULSE 68; RESP 16; TEMP 36.6; O2SAT 98
[2021-01-02 12:01] VITALS: O2SAT 98
[2021-01-02 14:47] VITALS: BP 145/68; PULSE 68; RESP 16; TEMP 36.6; O2SAT 94
--- NOTE | 2021-01-02 15:09 | PN.HOSP_ITS ---
Subjective Subjective Patient reports continued abdominal pain in the area of the drain. Reports good p.o. intake and has no other complaints besides the pain in her abdomen. No pain medicine has been given since yesterday at 3 PM. I did discuss with the patient if her pain is significant enough to go ahead and ask for her pain medic ine and she voiced understanding. Objective Data Objective Data Vital Signs: Vital Signs Temp Pulse Resp BP Pulse Ox 98 F 68 16 145/68 H 94 01/02/21 14:47 01/02/21 14:47 01/02/21 14:47 01/02/21 14:47 01/02/21 14:47 Oxygen Flow Rate (L/min) [6] 2 Oxygen Flow Rate (L/min) [5] 2 Oxygen Flow Rate (L/min) [4] 2 Oxygen Flow Rate (L/min) [3] 2 Oxygen Flow Rate (L/min) [2] 2 Oxygen Flow Rate (L/min) [1 ( 2 Initial Baseline)] Oxygen Flow Rate (L/min) 2 Oxygen Delivery Method [6] Nasal Cannula Oxygen Delivery Method [5] Nasal Cannula Oxygen Delivery Method [4] Nasal Cannula Oxygen Delivery Method [3] Nasal Cannula Oxygen Delivery Method [2] Nasal Cannula Oxygen Delivery Method [1 ( Nasal Cannula Initial Baseline)] Oxygen Delivery Method Room Air Weight: 77.111 kg Body Mass Index (BMI) 34.3 Intake & Output: Intake and Output for Last 24 Hours 12/31/20 01/01/21 01/02/21 23:59 23:59 23:59 Intake Total 825 / 825 3064.08 / 3164.08 500 / 500 Output Total 400 / 400 1100 / 1200 550 / 550 Balance 425 / 425 1964. / 1963.08 -50 / -50 Lab / Micro Data Result Diagrams: 01/02/21 08:00 01/02/21 08:00 Labs: Laboratory Results - last 24 hr 01/02/21 01/02/21 08:00 08:00 WBC 10.1 RBC 3.97 L Hgb 11.1 L Hct 36.0 L MCV 90.7 MCH 28.0 MCHC 30.8 L RDW Std Deviation 52.6 H RDW Coeff of Laxmi 15.9 H Plt Count 181 MPV 9.1 Immature Gran % (Auto) 1.200 H Neut % (Auto) 84.5 H Lymph % (Auto) 6.0 L [place] % (Auto) 7.2 Eos % (Auto) 0.7 Baso % (Auto) 0.4 Absolute Neuts (auto) 8.6 H Absolute Lymphs (auto) 0.61 L Nucleated RBC % 0 Sodium 140 Potassium 4.3 Chloride 109 H Carbon Dioxide 28.0 Anion Gap 3 L BUN 31 H Creatinine 1.59 H Estim Creat Clear Calc 32.06 Est GFR (MDRD) Af Amer 40 L Est GFR (MDRD) Non-Af 33 L BUN/Creatinine Ratio 19.5 Glucose 96 Calcium 8.8 Total Bilirubin 0.40 AST 48 H ALT 137 H Alkaline Phosphatase 276 H Total Protein 5.7 L Albumin 2.3 L Globulin 3.4 Albumin/Globulin Ratio 0.7 L Micro: Microbiology 12/31/20 10:45 Blood Culture (Wb) - Anticubital Left Blood Culture - Preliminary No growth in 48 hours. 12/31/20 11:25 Blood Culture (Wb) - Right Forearm Blood Culture - Preliminary No growth in 48 hours. 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 12/31/20 13:25 Interface Orders SARS-CoV-2 Antigen (Rapid) - Final Physical Exam Const alert, oriented x3 and no apparent distress Constitutional Narrative: Obese elderly white female, lying in bed watching television, appears comfortable, nontoxic Exam Limitations: no limitations HEENT head/scalp atraumatic, moist oral mucous membranes and oropharynx normal Eyes PERRL, EOMs intact bilaterally and conjunctivae normal Neck supple Neck Narrative: Trachea midline Resp normal respiratory effort, no retractions, no use of accessory muscles and clear to auscultation bilaterally Auscultation: Negative for crackles, rales, rhonchi or wheezes Cardio regular rate, regular rhythm, S1 normal heart sound, S2 normal heart sound, no murmurs, no rub, no gallops, no clicks and no JVD GI soft to palpation, non-tender and non-distended; Negative for hepatosplenomegaly GI Narrative: Abdomen with periumbilical erythema although this is less intense and significantly receded in the last 24 hours, drain in place with serosanguineous drainage and no purulence noted Auscultation: Negative for hyperactive bowel sounds or hypoactive bowel sounds Palpation: Negative for tender, guarding or hernia Extremity normal to inspection and no clubbing, cyanosis or edema Peripheral Pulses: Yes pulses 2+ throughout Skin no wounds, skin turgor normal, no jaundice, no petechiae and no mottling Skin Narrative: Abdominal cellulitis as described above, intertrigo yeast in inquinal folds and suprapubic area Neuro oriented x3, CN's II-XII intact bilaterally, moves all extremities and no focal motor deficits Sensorium / Orientation: awake, alert, oriented to person, oriented to place and oriented to time Speech: speech normal Psych Psych Narrative: Very pleasant mildly anxious Assessment & Plan Assessment/Plan (1) Abdominal wall abscess: (2) CKD (chronic kidney disease), stage IV: (3) Anemia: QUALIFIERS: Anemia type: iron deficiency Iron deficiency anemia type: chronic blood loss Qualified Code(s): D50.0 - Iron deficiency anemia secondary to blood loss (chronic) (4) Transaminitis: PLAN: Abdominal wall abscess -Continue vancomycin and Zosyn -Drain placed on 01/01/2021 but no purulent drainage obtained -Awaiting cultures from aspiration done by Dr. 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 textile broker -Blood cultures have no growth at 48 hours -Urine culture is negative -Continue pain medication -Appreciate ID and general surgery input Transaminitis -Suspect related to acute infection and possibly antibiotics -Trending down -Repeat again on Monday Severe Roseanna intertrigo -Located in bilateral inguinal and suprapubic regions -Diflucan given in ED -Continue topical nystatin -Purwick in place CKD stage IV -Baseline creatinine appears to be 1.8-1.9 -Serum creatinine is trended down to 1.59 today -Continue to monitor -Avoid nephrotoxins as able Recent left posterior tibial vein DVT in 08/2020 -Has been on Eliquis for anticoagulation -Hold for the time being given IR drain placement -Restart when okay with general surgery Hypertension -Continue home medications -Discontinue IV fluids Rheumatoid arthritis -Continue home medications -Patient is on chronic steroids -Monitor need for stress dose Chronic anemia secondary to renal disease -Patient is on iron supplementation--> continue -Monitor -Hemoglobin is stable Restless leg syndrome -Continue Mirapex History of migraines -Continue as needed home meds Peripheral neuropathy -Continue home gabapentin Depression Continue home Cymbalta Obesity -recommend wgt loss DVT prophylaxis -Restart Eliquis when okay with general surgery -SCDs CODE STATUS -Full code -Patient with multiple comorbidities and qualifies for palliative care consult--> will have palliative care follow the patient given her renal disease and other comorbidities for help with outpatient issues and CODE STATUS discussions Visit Charges Inpatient E&M: 85939 Subs Hosp L2
[2021-01-02] MEDS: amLODIPine 5 MG Tablet PO (16:49)
[2021-01-02 20:13] VITALS: BP 136/63; PULSE 77; RESP 18; TEMP 36.6; O2SAT 100
[2021-01-02] MEDS: Pramipexole Di-HCl 0.25 MG Tablet PO (22:01)
[2021-01-02] MEDS: Gabapentin 300 MG Capsule PO (22:10)
--- NOTE | 2021-01-02 22:57 | PCM.RX.CS ---
Consult Pharmacy has been consulted to manage selected antiobiotic: Vancomycin Type of Consult: Follow-up Suspected Infection: Other Prior Doses of Antibiotics Received/Current Regimen: Medications Vancomycin HCl (Vancomycin) 1,000 mg in 200 mls @ 200 mls/hr IV Q24H LILLIAN Discontinued Medications Vancomycin HCl 750 mg/ Sodium (Chloride) 265 mls @ 250 mls/hr IV Q24H LILLIAN Last Admin: 01/02/21 21:36 Dose: Infused Labs: Sodium 140 mmol/L (136-145) 01/02/21 08:00 Potassium 4.3 mmol/L (3.5-5.1) 01/02/21 08:00 Chloride 109 mmol/L (98-107) H 01/02/21 08:00 Carbon Dioxide 28.0 mmol/L (21.0-32.0) 01/02/21 08:00 Anion Gap 3 (5-15) L 01/02/21 08:00 BUN 31 mg/dL (7-18) H 01/02/21 08:00 Creatinine 1.59 mg/dL (0.55-1.02) H 01/02/21 08:00 Est GFR (MDRD) Af Amer 40 mL/min (>60) L 01/02/21 08:00 Est GFR (MDRD) Non-Af 33 mL/min (>60) L 01/02/21 08:00 BUN/Creatinine Ratio 19.5 RATIO (10-20) 01/02/21 08:00 Glucose 96 mg/dL (74-106) 01/02/21 08:00 Vancomycin Trough 12.0 ug/mL (5.0-15.0) 01/02/21 18:50 Microbiology: Microbiology 12/31/20 10:45 Blood Culture (Wb) - Anticubital Left Blood Culture - Preliminary No growth in 48 hours. 12/31/20 11:25 Blood Culture (Wb) - Right Forearm Blood Culture - Preliminary No growth in 48 hours. 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 12/31/20 13:25 Interface Orders SARS-CoV-2 Antigen (Rapid) - Final Weight used for dosin.1 kg Estimated Creatinine Clearance: 32 Goal Trough: 15-20 mcg/mL Pharmacy Plan for Drug Dosing: Vancomycin trough level was low at 12.0. Dose will be increased to 1000mg q24h, and another trough will be drawn prior to 3rd dose of new regimen. Pharmacy Service will continue to monitor and adjust dosing as required. Follow-Up Labs: Trough Vancomycin Labs to be done on [date and time ordered]: 01/05/21 @1900
[2021-01-03 02:58] VITALS: BP 149/71; PULSE 70; RESP 18; TEMP 36.6; O2SAT 97
[2021-01-03] MEDS: Nystatin Powder 15gm Bottle 1 APPLIC TOPICAL ×3 (05:02→22:36)
[2021-01-03 06:21] LABS: Basophil# 0.05 X10^3/uL; Basophil% 0.6 % (0-1); Eosinophil# 0.12 X10^3/uL; Eosinophils% 1.4 % (0-5); Hematocrit 34.8 % (37-47); Hemoglobin 10.9 g/dL (12.0-15.0); Mean Corp Hgb Conc 31.3 g/dL (32-36); Mean Corpuscular Hgb 28.2 pg (27.0-32.0); Mean Corpuscular Volume 89.9 fL (81-99); Monocyte# 0.71 X10^3/uL; Monocyte% 8.3 % (0-10); NRBC Flagged by Analyzer 0 % (0-5); Neutrophil # 7.03 X10^3/uL (2.7-7.7); Neutrophil % 81.8 % (47-70); POSITIVE DIFFERENTIAL YES; Platelet Count 184 K/mm3 (150-450); RBC Distribution Width CV 16.2 % (11.6-14.6); RBC Distribution Width SD 52.5 fl (35.1-43.9); Red Blood Count 3.87 M/mm3 (4.2-5.4); White Blood Count 8.6 K/mm3 (4.4-11.0)
[2021-01-03 06:27] LABS: Differential Indicated SCAN CRITERIA MET
[2021-01-03 06:42] LABS: Anion Gap 4 (5-15); BUN 28 mg/dL (7-18); BUN/Creat Ratio 19.6 RATIO (10-20); Calcium,Total 9.5 mg/dL (8.5-10.1); Chloride 110 mmol/L (98-107); Creatinine, Serum 1.43 mg/dL (0.55-1.02); EST Glomerular Filtration Rate 37 mL/min (>60); Est Glom Filt Rate - Afr Amer 45 mL/min (>60); Estimated Creatinine Clearance 35.65 ml/min; Glucose 102 mg/dL (74-106); Potassium 4.2 mmol/L (3.5-5.1); Sodium Level 138 mmol/L (136-145)
[2021-01-03 06:45] VITALS: O2SAT 96
[2021-01-03 06:52] LABS: Differential Comment SCANNED
--- NOTE | 2021-01-03 07:02 | PCM.PN.SRG ---
Subjective Subjective Patient reports some improvement she is still having pain in the area Objective Data Objective Data Vital Signs: Vital Signs Temp Pulse Resp BP Pulse Ox 97.9 F 70 18 149/71 H 97 01/03/21 02:58 01/03/21 02:58 01/03/21 02:58 01/03/21 02:58 01/03/21 02:58 Oxygen Flow Rate (L/min) [6] 2 Oxygen Flow Rate (L/min) [5] 2 Oxygen Flow Rate (L/min) [4] 2 Oxygen Flow Rate (L/min) [3] 2 Oxygen Flow Rate (L/min) [2] 2 Oxygen Flow Rate (L/min) [1 ( 2 Initial Baseline)] Oxygen Flow Rate (L/min) 2 Oxygen Delivery Method [6] Nasal Cannula Oxygen Delivery Method [5] Nasal Cannula Oxygen Delivery Method [4] Nasal Cannula Oxygen Delivery Method [3] Nasal Cannula Oxygen Delivery Method [2] Nasal Cannula Oxygen Delivery Method [1 ( Nasal Cannula Initial Baseline)] Oxygen Delivery Method Room Air Weight: 170 lb Body Mass Index (BMI) 34.3 Intake & Output: Intake and Output for Last 24 Hours 01/01/21 01/02/21 01/03/21 23:59 23:59 23:59 Intake Total 3064.08 / 3164.08 1265 / 1465 250 / 250 Output Total 1100 / 1200 900 / 1250 1100 / 1100 Balance 1964.08 / 1964.08 365 / 215 -850 / -850 Lab / Micro Data Result Diagrams: 01/03/21 06:00 01/03/21 06:00 Labs: Laboratory Results - last 24 hr 01/02/21 01/02/21 01/02/21 08:00 08:00 18:50 WBC 10.1 RBC 3.97 L Hgb 11.1 L Hct 36.0 L MCV 90.7 MCH 28.0 MCHC 30.8 L RDW Std Deviation 52.6 H RDW Coeff of Laxmi 15.9 H Plt Count 181 MPV 9.1 Immature Gran % (Auto) 1.200 H Neut % (Auto) 84.5 H Lymph % (Auto) 6.0 L [place] % (Auto) 7.2 Eos % (Auto) 0.7 Baso % (Auto) 0.4 Absolute Neuts (auto) 8.6 H Absolute Lymphs (auto) 0.61 L Nucleated RBC % 0 Differential Comment Sodium 140 Potassium 4.3 Chloride 109 H Carbon Dioxide 28.0 Anion Gap 3 L BUN 31 H Creatinine 1.59 H Estim Creat Clear Calc 32.06 Est GFR (MDRD) Af Amer 40 L Est GFR (MDRD) Non-Af 33 L BUN/Creatinine Ratio 19.5 Glucose 96 Calcium 8.8 Total Bilirubin 0.40 AST 48 H ALT 137 H Alkaline Phosphatase 276 H Total Protein 5.7 L Albumin 2.3 L Globulin 3.4 Albumin/Globulin Ratio 0.7 L Vancomycin Trough 12.0 01/03/21 01/03/21 06:00 06:00 WBC 8.6 RBC 3.87 L Hgb 10.9 L Hct 34.8 L MCV 89.9 MCH 28.2 MCHC 31.3 L RDW Std Deviation 52.5 H RDW Coeff of Laxmi 16.2 H Plt Count 184 MPV 9.0 Immature Gran % (Auto) 0.900 Neut % (Auto) 81.8 H Lymph % (Auto) 7.0 L [place] % (Auto) 8.3 Eos % (Auto) 1.4 Baso % (Auto) 0.6 Absolute Neuts (auto) 7.0 Absolute Lymphs (auto) 0.60 L Nucleated RBC % 0 Differential Comment SCANNED Sodium 138 Potassium 4.2 Chloride 110 H Carbon Dioxide 24.0 Anion Gap 4 L BUN 28 H Creatinine 1.43 H Estim Creat Clear Calc 35.65 Est GFR (MDRD) Af Amer 45 L Est GFR (MDRD) Non-Af 37 L BUN/Creatinine Ratio 19.6 Glucose 102 Calcium 9.5 Total Bilirubin AST ALT Alkaline Phosphatase Total Protein Albumin Globulin Albumin/Globulin Ratio Vancomycin Trough Micro: Microbiology 01/01/21 13:30 Wound Abcess - Abdominal Gram Stain - Final 01/01/21 13:30 Wound Abcess - Abdominal Wound Culture - Preliminary 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 12/31/20 10:45 Blood Culture (Wb) - Anticubital Left Blood Culture - Preliminary No growth in 48 hours. 12/31/20 11:25 Blood Culture (Wb) - Right Forearm Blood Culture - Preliminary No growth in 48 hours. 12/31/20 11:25 Urine, Catheterized Urine Culture - Final Culture exhibits no growth. 12/31/20 13:25 Interface Orders SARS-CoV-2 Antigen (Rapid) - Final Physical Exam Const oriented x3 and no apparent distress Cardio regular rate and regular rhythm GI GI Narrative: The patient's cellulitis is still present but it is small. The drain was removed as it was having no output. Assessment & Plan Assessment/Plan (1) Abdominal wall abscess: PLAN: The patient still has some cellulitis in the area. There is firmness but no fluctuance. The drain was removed as it was not having any output. The aspiration that Dr. Saucedo performed is growing out gram-negative rods. Patient is currently on Zosyn. Continue to administer IV antibiotics and regular diet. The patient's Eliquis is being held in case she needs surgery this coming week. She is okay to have Lovenox today and tomorrow and I will make her n.p.o. after midnight on Monday in case Dr. Saucedo is going to take her to surgery this week. Unable to obtain CT with IV contrast due to the patient's creatinine to see if the fluid filled area is decreasing. Nnamdi Cooper MD Pager: [facility] [address] [place] [address], [address] [place] [address] Office:
[2021-01-03] MEDS: Gabapentin 100 MG Capsule PO ×2 (07:35→16:43)
[2021-01-03] MEDS: Ferrous Sulfate 325 MG Tablet PO (07:35)
[2021-01-03] MEDS: Hydroxychloroquine 200 MG Tablet PO ×2 (07:35→16:43)
[2021-01-03] MEDS: Tolterodine Tartrate 4 MG CAP.SA PO (07:35)
[2021-01-03] MEDS: Multivitamins,Ther W-Minerals Tablet 1 TABLET PO (07:35)
[2021-01-03] MEDS: Atenolol 25 MG Tablet PO ×2 (07:36→22:36)
[2021-01-03] MEDS: DULoxetine Hcl 60 MG Capsule PO ×2 (07:36→22:36)
[2021-01-03] MEDS: oxyCODONE 5 MG Tablet PO ×3 (07:39→22:41)
[2021-01-03] MEDS: amLODIPine 5 MG Tablet PO (07:39)
[2021-01-03 08:17] VITALS: BP 144/76; PULSE 67; RESP 18; TEMP 36.5; O2SAT 96
--- NOTE | 2021-01-03 11:43 | PCM.PN.HOSP ---
Subjective Subjective Patient reports that she still having some periumbilical pain in her abdomen related to her cellulitis. She has no other complaints. The drain has been pulled. P.o. intake is good. Patient indicates she has not had a bowel movement since admission and would like something to help with that. Objective Data Objective Data Vital Signs: Vital Signs Temp Pulse Resp BP Pulse Ox 97.7 F L 67 18 144/76 H 96 01/03/21 08:17 01/03/21 08:17 01/03/21 08:17 01/03/21 08:17 01/03/21 08:17 Oxygen Flow Rate (L/min) [6] 2 Oxygen Flow Rate (L/min) [5] 2 Oxygen Flow Rate (L/min) [4] 2 Oxygen Flow Rate (L/min) [3] 2 Oxygen Flow Rate (L/min) [2] 2 Oxygen Flow Rate (L/min) [1 ( 2 Initial Baseline)] Oxygen Flow Rate (L/min) 2 Oxygen Delivery Method [6] Nasal Cannula Oxygen Delivery Method [5] Nasal Cannula Oxygen Delivery Method [4] Nasal Cannula Oxygen Delivery Method [3] Nasal Cannula Oxygen Delivery Method [2] Nasal Cannula Oxygen Delivery Method [1 ( Nasal Cannula Initial Baseline)] Oxygen Delivery Method Room Air Weight: 79.379 kg Body Mass Index (BMI) 34.3 Intake & Output: Intake and Output for Last 24 Hours 01/01/21 01/02/21 01/03/21 23:59 23:59 23:59 Intake Total 3064.08 / 3164.08 1265 / 1465 300 / 300 Output Total 1100 / 1200 900 / 1250 1100 / 1100 Balance 1964.08 / 1964.08 365 / 215 -800 / -800 Lab / Micro Data Result Diagrams: 01/03/21 06:00 01/03/21 06:00 Labs: Laboratory Results - last 24 hr 01/02/21 01/03/21 01/03/21 18:50 06:00 06:00 WBC 8.6 RBC 3.87 L Hgb 10.9 L Hct 34.8 L MCV 89.9 MCH 28.2 MCHC 31.3 L RDW Std Deviation 52.5 H RDW Coeff of Laxmi 16.2 H Plt Count 184 MPV 9.0 Immature Gran % (Auto) 0.900 Neut % (Auto) 81.8 H Lymph % (Auto) 7.0 L [place] % (Auto) 8.3 Eos % (Auto) 1.4 Baso % (Auto) 0.6 Absolute Neuts (auto) 7.0 Absolute Lymphs (auto) 0.60 L Nucleated RBC % 0 Differential Comment SCANNED Sodium 138 Potassium 4.2 Chloride 110 H Carbon Dioxide 24.0 Anion Gap 4 L BUN 28 H Creatinine 1.43 H Estim Creat Clear Calc 35.65 Est GFR (MDRD) Af Amer 45 L Est GFR (MDRD) Non-Af 37 L BUN/Creatinine Ratio 19.6 Glucose 102 Calcium 9.5 Vancomycin Trough 12.0 Micro: Microbiology 01/01/21 13:30 Wound Abcess - Abdominal Gram Stain - Final 01/01/21 13:30 Wound Abcess - Abdominal Wound Culture - Preliminary Klebsiella pneumoniae sp pneum 01/01/21 13:30 Wound Abcess - Abdominal Anaerobic Culture - Preliminary Checking for anaerobes, further studies to follow. 12/31/20 10:45 Blood Culture (Wb) - Anticubital Left Blood Culture - Preliminary No growth in 48 hours. 12/31/20 11:25 Blood Culture (Wb) - Right Forearm Blood Culture - Preliminary No growth in 48 hours. 12/31/20 11:25 Urine, Catheterized Urine Culture - Final Culture exhibits no growth. 12/31/20 13:25 Interface Orders SARS-CoV-2 Antigen (Rapid) - Final Physical Exam Narrative Physical exam: General: Alert, Oriented x3, Cooperative, No apparent distress, Well developed HEENT: Atraumatic Oral: Moist Mucosa Neck: Supple Lungs: Clear to auscultation Cardiovascular: HS I+II, regular, no murmurs Abdomen: Periumbilical swelling and redness, tender to palpation, bowel Sounds Present, Soft, other areas of the abdomen non Tender Extremities: No edema Skin: No rashes, No breakdown Neurological: Grossly intact Psych/Mental Status: Appropriate Const alert, oriented x3 and no apparent distress Constitutional Narrative: Obese elderly white female, lying in bed napping but awakens easily name, appears comfortable, nontoxic Exam Limitations: no limitations Neck Neck Narrative: Trachea midline Resp normal respiratory effort, no retractions, no use of accessory muscles and clear to auscultation bilaterally Auscultation: Negative for crackles, rales, rhonchi or wheezes Cardio regular rate, regular rhythm, S1 normal heart sound, S2 normal heart sound, no murmurs, no rub, no gallops, no clicks and no JVD GI soft to palpation, non-tender and non-distended; Negative for hepatosplenomegaly GI Narrative: Very minimal residual erythema of the abdomen in the immediate periumbilical area--> marked retraction from admission and less intense erythema, still with moderate tenderness, drain has been removed Auscultation: Negative for hyperactive bowel sounds or hypoactive bowel sounds Palpation: Negative for tender, guarding or hernia Extremity normal to inspection and no clubbing, cyanosis or edema Skin no wounds, skin turgor normal, no jaundice, no petechiae and no mottling Neuro oriented x3, CN's II-XII intact bilaterally, moves all extremities and no focal motor deficits Sensorium / Orientation: awake, alert, oriented to person, oriented to place and oriented to time Speech: speech normal Assessment & Plan Assessment/Plan (1) Abdominal wall abscess: (2) CKD (chronic kidney disease), stage IV: (3) Anemia: QUALIFIERS: Anemia type: iron deficiency Iron deficiency anemia type: chronic blood loss Qualified Code(s): D50.0 - Iron deficiency anemia secondary to blood loss (chronic) (4) Transaminitis: PLAN: Abdominal wall abscess -Continue vancomycin and Zosyn -Drain placed on 01/01/2021 but no purulent drainage obtained--> drain removed today 01/03/2021 -Awaiting cultures from aspiration -Thus far identification is a gram-negative nghia-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 and anaerobic growth -Blood cultures are negative -Urine culture is negative -Continue pain medication -Appreciate ID and general surgery input Transaminitis -Suspect related to acute infection and possibly antibiotics -Trending down -Repeat again on Monday Severe Roseanna intertrigo -Located in bilateral inguinal and suprapubic regions -Diflucan given in ED -Continue topical nystatin -Purwick in place CKD stage IV -Baseline creatinine appears to be 1.8-1.9 -Serum creatinine is trended down to 1.43 today -Continue to monitor -Avoid nephrotoxins as able Mild chronic anemia -Suspect related to chronic disease/renal disease -Counts are relatively stable -Continue to monitor Recent left posterior tibial vein DVT in 08/2020 -Has been on Eliquis for anticoagulation -Eliquis was held for drain placement and removal -We will restart Eliquis today if okay with general surgery Hypertension -Continue home medications -Discontinue IV fluids Rheumatoid arthritis -Continue home medications -Patient is on chronic steroids -Monitor need for stress dose Chronic anemia secondary to renal disease -Patient is on iron supplementation--> continue -Monitor -Hemoglobin is stable Restless leg syndrome -Continue Mirapex History of migraines -Continue as needed home meds Peripheral neuropathy -Continue home gabapentin Depression Continue home Cymbalta Obesity -recommend wgt loss DVT prophylaxis -Restart Eliquis today if okay with general surgery -SCDs CODE STATUS -Full code -Patient with multiple comorbidities and qualifies for palliative care consult--> will have palliative care follow the patient given her renal disease and other comorbidities for help with outpatient issues and CODE STATUS discussions--> consult is pending Visit Charges Inpatient E&M: 88109 Subs Hosp L2
[2021-01-03] MEDS: Polyethylene Glycol 3350 17 GM PACKET PO (12:04)
[2021-01-03 12:21] VITALS: BP 92/40; PULSE 71; RESP 16; TEMP 36.4; O2SAT 98
[2021-01-03 15:23] VITALS: BP 114/64; PULSE 75; RESP 16; TEMP 36.5; O2SAT 96
[2021-01-03] MEDS: Vancomycin IV 1,000 MG/200 ML BAG 200 MG IV (19:12)
[2021-01-03 22:30] VITALS: BP 132/69; PULSE 83; RESP 18; TEMP 36.6; O2SAT 97
[2021-01-03] MEDS: Gabapentin 300 MG Capsule PO (22:35)
[2021-01-03] MEDS: Pramipexole Di-HCl 0.25 MG Tablet PO (22:35)
[2021-01-03] MEDS: Acetaminophen 325 MG Tablet 650 MG PO (22:42)
[2021-01-03] MEDS: 0.9% Saline Lock 10 ML Syringe IV (23:56)
[2021-01-04 02:59] VITALS: BP 140/72; PULSE 78; RESP 17; TEMP 36.5; O2SAT 96
[2021-01-04] MEDS: Nystatin Powder 15gm Bottle 1 APPLIC TOPICAL ×3 (05:21→22:20)
[2021-01-04 06:52] LABS: ALB/GLOB Ratio 0.6 RATIO (0.9-2.4); AST(SGOT) 171 U/L (15-37); Alanine Aminotransfer ALT/SGPT 201 U/L (13-56); Albumin, Serum 2.3 g/dL (3.2-5.0); Alkaline Phosphatase 466 U/L (45-117); Anion Gap 5 (5-15); BUN 33 mg/dL (7-18); Calcium,Total 9.5 mg/dL (8.5-10.1); Chloride 106 mmol/L (98-107); Creatinine, Serum 1.57 mg/dL (0.55-1.02); EST Glomerular Filtration Rate 33 mL/min (>60); Est Glom Filt Rate - Afr Amer 40 mL/min (>60); Estimated Creatinine Clearance 33.43 ml/min; Globulin 3.6 g/dL (2.2-4.2); Glucose 94 mg/dL (74-106); Potassium 4.5 mmol/L (3.5-5.1); Protein, Total 5.9 g/dL (6.4-8.2); Sodium Level 138 mmol/L (136-145)
[2021-01-04 07:00] VITALS: O2SAT 95
--- NOTE | 2021-01-04 07:28 | PN.SURG_ITS ---
Subjective Subjective Patient reports no changes Objective Data Objective Data Vital Signs: Vital Signs Temp Pulse Resp BP Pulse Ox 97.7 F L 78 17 140/72 H 96 01/04/21 02:59 01/04/21 02:59 01/04/21 02:59 01/04/21 02:59 01/04/21 02:59 Oxygen Flow Rate (L/min) [6] 2 Oxygen Flow Rate (L/min) [5] 2 Oxygen Flow Rate (L/min) [4] 2 Oxygen Flow Rate (L/min) [3] 2 Oxygen Flow Rate (L/min) [2] 2 Oxygen Flow Rate (L/min) [1 ( 2 Initial Baseline)] Oxygen Flow Rate (L/min) 2 Oxygen Delivery Method [6] Nasal Cannula Oxygen Delivery Method [5] Nasal Cannula Oxygen Delivery Method [4] Nasal Cannula Oxygen Delivery Method [3] Nasal Cannula Oxygen Delivery Method [2] Nasal Cannula Oxygen Delivery Method [1 ( Nasal Cannula Initial Baseline)] Oxygen Delivery Method Room Air Weight: 175 lb 0.012 oz Body Mass Index (BMI) 34.3 Intake & Output: Intake and Output for Last 24 Hours 01/02/21 01/03/21 01/04/21 23:59 23:59 23:59 Intake Total 1265 / 1465 1250 / 1400 350 / 350 Output Total 900 / 1250 1550 / 1800 500 / 500 Balance 365 / 215 -300 / -400 -150 / -150 Lab / Micro Data Result Diagrams: 01/03/21 06:00 01/04/21 05:47 Labs: Laboratory Results - last 24 hr 01/04/21 05:47 Sodium 138 Potassium 4.5 Chloride 106 Carbon Dioxide 27.0 Anion Gap 5 BUN 33 H Creatinine 1.57 H Estim Creat Clear Calc 33.43 Est GFR (MDRD) Af Amer 40 L Est GFR (MDRD) Non-Af 33 L BUN/Creatinine Ratio 21.0 H Glucose 94 Calcium 9.5 Total Bilirubin 0.70 AST 171 H ALT 201 H Alkaline Phosphatase 466 H Total Protein 5.9 L Albumin 2.3 L Globulin 3.6 Albumin/Globulin Ratio 0.6 L Micro: Microbiology 01/01/21 13:30 Wound Abcess - Abdominal Gram Stain - Final 01/01/21 13:30 Wound Abcess - Abdominal Wound Culture - Preliminary Klebsiella pneumoniae sp pneum 01/01/21 13:30 Wound Abcess - Abdominal Anaerobic Culture - Preliminary Checking for anaerobes, further studies to follow. 12/31/20 10:45 Blood Culture (Wb) - Anticubital Left Blood Culture - Preliminary No growth in 48 hours. 12/31/20 11:25 Blood Culture (Wb) - Right Forearm Blood Culture - Preliminary No growth in 48 hours. 12/31/20 11:25 Urine, Catheterized Urine Culture - Final Culture exhibits no growth. 12/31/20 13:25 Interface Orders SARS-CoV-2 Antigen (Rapid) - Final Physical Exam Const oriented x3 and no apparent distress Resp normal respiratory effort Cardio regular rate and regular rhythm GI GI Narrative: The cellulitis is receding and there is still an indurated area in the umbilicus but no fluctuance Assessment & Plan Assessment/Plan (1) Abdominal wall abscess: PLAN: The patient seems to be improving. Her cellulitis is receding ni adrian and there is only an area of redness at the umbilicus with induration. No fluctuance. I recommend continuing antibiotics. Dr. Saucedo will be back tomorrow to decide if surgery is warranted. She is on a regular diet and she is on therapeutic doses of Lovenox until it is decided that she will not any surgery and then Eliquis can be resumed. I will make the patient n.p.o. overnight in case she debridement is necessary. Nnamdi Cooper MD Pager: [facility] [address] [place] [address], [address] [place] [address] Office:
[2021-01-04] MEDS: oxyCODONE 5 MG Tablet PO ×2 (08:59→12:54)
[2021-01-04] MEDS: Acetaminophen 325 MG Tablet 650 MG PO (08:59)
[2021-01-04] MEDS: Gabapentin 100 MG Capsule PO ×2 (08:59→17:07)
[2021-01-04] MEDS: DULoxetine Hcl 60 MG Capsule PO ×2 (09:00→22:20)
[2021-01-04] MEDS: Tolterodine Tartrate 4 MG CAP.SA PO (09:00)
[2021-01-04] MEDS: Hydroxychloroquine 200 MG Tablet PO ×2 (09:00→17:07)
[2021-01-04] MEDS: Multivitamins,Ther W-Minerals Tablet 1 TABLET PO (09:00)
[2021-01-04] MEDS: Ferrous Sulfate 325 MG Tablet PO (09:04)
[2021-01-04] MEDS: Atenolol 25 MG Tablet PO ×2 (09:04→22:19)
[2021-01-04] MEDS: amLODIPine 5 MG Tablet PO ×2 (09:06→11:42)
[2021-01-04 09:07] VITALS: BP 175/76; PULSE 69; RESP 18; TEMP 36.6; O2SAT 99
--- NOTE | 2021-01-04 09:50 | PCM.PN.HOSP ---
Subjective Subjective Seen and examined. Complaining of abdominal pain. No fever. Blood pressure elevated Objective Data Objective Data Vital Signs: Vital Signs Temp Pulse Resp BP Pulse Ox 97.9 F 69 18 175/76 H 99 01/04/21 09:07 01/04/21 09:07 01/04/21 09:07 01/04/21 09:07 01/04/21 09:07 Oxygen Flow Rate (L/min) [6] 2 Oxygen Flow Rate (L/min) [5] 2 Oxygen Flow Rate (L/min) [4] 2 Oxygen Flow Rate (L/min) [3] 2 Oxygen Flow Rate (L/min) [2] 2 Oxygen Flow Rate (L/min) [1 ( 2 Initial Baseline)] Oxygen Flow Rate (L/min) 2 Oxygen Delivery Method [6] Nasal Cannula Oxygen Delivery Method [5] Nasal Cannula Oxygen Delivery Method [4] Nasal Cannula Oxygen Delivery Method [3] Nasal Cannula Oxygen Delivery Method [2] Nasal Cannula Oxygen Delivery Method [1 ( Nasal Cannula Initial Baseline)] Oxygen Delivery Method Room Air Weight: 175 lb 0.012 oz Body Mass Index (BMI) 34.3 Intake & Output: Intake and Output for Last 24 Hours 01/02/21 01/03/21 01/04/21 23:59 23:59 23:59 Intake Total 1265 / 1465 1250 / 1400 350 / 350 Output Total 900 / 1250 1550 / 1800 500 / 500 Balance 365 / 215 -300 / -400 -150 / -150 Lab / Micro Data Result Diagrams: 01/03/21 06:00 01/04/21 05:47 Labs: Laboratory Results - last 24 hr 01/04/21 05:47 Sodium 138 Potassium 4.5 Chloride 106 Carbon Dioxide 27.0 Anion Gap 5 BUN 33 H Creatinine 1.57 H Estim Creat Clear Calc 33.43 Est GFR (MDRD) Af Amer 40 L Est GFR (MDRD) Non-Af 33 L BUN/Creatinine Ratio 21.0 H Glucose 94 Calcium 9.5 Total Bilirubin 0.70 AST 171 H ALT 201 H Alkaline Phosphatase 466 H Total Protein 5.9 L Albumin 2.3 L Globulin 3.6 Albumin/Globulin Ratio 0.6 L Micro: Microbiology 01/01/21 13:30 Wound Abcess - Abdominal Gram Stain - Final 01/01/21 13:30 Wound Abcess - Abdominal Wound Culture - Preliminary Klebsiella pneumoniae sp pneum Staphylococcus aureus 01/01/21 13:30 Wound Abcess - Abdominal Anaerobic Culture - Preliminary Checking for anaerobes, further studies to follow. 12/31/20 10:45 Blood Culture (Wb) - Anticubital Left Blood Culture - Preliminary No growth in 48 hours. 12/31/20 11:25 Blood Culture (Wb) - Right Forearm Blood Culture - Preliminary No growth in 48 hours. 12/31/20 11:25 Urine, Catheterized Urine Culture - Final Culture exhibits no growth. 12/31/20 13:25 Interface Orders SARS-CoV-2 Antigen (Rapid) - Final Physical Exam Narrative General: Alert, Oriented x3, Cooperative HEENT: Atraumatic, PERRLA, EOMI, Normocephalic Oral: No Gingival or Mucosal Lesions/ Ulcerations Neck: Supple, No JVD, Negative Carotid Bruits Lungs: Air entry diminished in bilateral lung bases. No crepitation/rhonchi Cardiovascular: Regular rate, Regular Rhythm, Normal S1, Normal S2, No murmurs Abdomen: Soft, tenderness present around umbilical area with induration. No discharge. Bowel sounds present. : No renal angle tenderness. No suprapubic tenderness. Extremities: No edema, Capillary Refill Less than 3 Seconds Skin: No rashes, No breakdown Musculoskeletal: Deformity of the small joints in fingers and wrist, arthritis. ROM restricted. Neurological: Cranial nerves II-XII grossly intact, Deep Tendon Reflexes 2+/4 and Symmetrical, Neuro grossly intact Psych/Mental Status: Normal Affect, Appropriate. Assessment & Plan Assessment/Plan (1) Abdominal wall abscess: (2) Cellulitis, umbilical: PLAN: 1. Abdominal wall abscess with surrounding cellulitis around umbilical region: The patient is admitted MedSurg floor. Seen by surgeon's improving on IV antibiotics, vancomycin and Zosyn. No fluctuance but induration and tenderness around umbilical region. Surgeon made her n.p.o. after midnight today in case if she needs surgery tomorrow. Abscess culture shows Klebsiella pneumoniae, 2+ and rare staph aureus. Klebsiella sensitive to Cipro and gentamicin. ESBL negative. Blood and urine cultures are negative. 2. Bilateral groin Roseanna intertrigo: On nystatin. Purwick in place 3. CKD stage IV: Baseline creatinine runs around 1.8-1.9. Currently creatinine 1.43. 4. Recent left posterior tibial vein DVT in August 2020. On Lovenox in place of Eliquis in case if he needs surgery. 5. 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 6. Hypertension: Blood pressure is elevated. Amlodipine dose increased to 10 mg daily. 7. Other chronic comorbidities include hypertension, restless leg syndrome, mild pain, depression, peripheral neuropathy, anxiety and depression and obesity grade 3. Patient also has constipation started on MiraLAX and senna S. Visit Charges Inpatient E&M: 82939 Subs Hosp L2
[2021-01-04] MEDS: Polyethylene Glycol 3350 17 GM PACKET PO (12:54)
[2021-01-04] MEDS: Senna/Docusate Sodium 1 Tablet 2 TABLET PO ×2 (13:34→22:26)
[2021-01-04 15:33] VITALS: BP 135/68; PULSE 73; RESP 18; TEMP 36.4; O2SAT 98
[2021-01-04] MEDS: Vancomycin IV 1,000 MG/200 ML BAG 200 MG IV (19:12)
[2021-01-04 21:34] VITALS: BP 132/65; PULSE 83; RESP 18; TEMP 36.7; O2SAT 95
[2021-01-04] MEDS: Pramipexole Di-HCl 0.25 MG Tablet PO (22:19)
[2021-01-04] MEDS: Gabapentin 300 MG Capsule PO (22:19)
[2021-01-05] VITALS (14 sets, daily range): BP systolic 106–158; BP diastolic 47–97; PULSE 65–82; RESP 16–20; TEMP 36.1–36.8; O2SAT 94–99; BMI 35.3; BMI 51.2
[2021-01-05] MEDS: Nystatin Powder 15gm Bottle 1 APPLIC TOPICAL ×2 (06:11→22:21)
--- NOTE | 2021-01-05 07:57 | PN.SURG_ITS ---
Subjective Subjective Patient's cultures grew Klebsiella pneumonia and staph aureus. Patient has been off her Eliquis. On Lovenox. Objective Data Objective Data Vital Signs: Vital Signs Temp Pulse Resp BP Pulse Ox 98.1 F 82 18 122/64 H 95 01/05/21 03:34 01/05/21 03:34 01/05/21 03:34 01/05/21 03:34 01/05/21 03:34 Oxygen Flow Rate (L/min) [6] 2 Oxygen Flow Rate (L/min) [5] 2 Oxygen Flow Rate (L/min) [4] 2 Oxygen Flow Rate (L/min) [3] 2 Oxygen Flow Rate (L/min) [2] 2 Oxygen Flow Rate (L/min) [1 ( 2 Initial Baseline)] Oxygen Flow Rate (L/min) 2 Oxygen Delivery Method [6] Nasal Cannula Oxygen Delivery Method [5] Nasal Cannula Oxygen Delivery Method [4] Nasal Cannula Oxygen Delivery Method [3] Nasal Cannula Oxygen Delivery Method [2] Nasal Cannula Oxygen Delivery Method [1 ( Nasal Cannula Initial Baseline)] Oxygen Delivery Method Room Air Weight: 175 lb 0.012 oz Body Mass Index (BMI) 34.3 Intake & Output: Intake and Output for Last 24 Hours 01/03/21 01/04/21 01/05/21 23:59 23:59 23:59 Intake Total 1250 / 1400 1013.50 / 1013.50 50 / 50 Output Total 1550 / 1800 910 / 910 300 / 300 Balance -300 / -400 103.50 / 103.50 -250 / -250 Lab / Micro Data Result Diagrams: 01/03/21 06:00 01/04/21 05:47 Micro: Microbiology 01/01/21 13:30 Wound Abcess - Abdominal Gram Stain - Final 01/01/21 13:30 Wound Abcess - Abdominal Wound Culture - Final Klebsiella pneumoniae sp pneum Staphylococcus aureus 01/01/21 13:30 Wound Abcess - Abdominal Anaerobic Culture - Preliminary Checking for anaerobes, further studies to follow. 12/31/20 10:45 Blood Culture (Wb) - Anticubital Left Blood Culture - Preliminary No growth in 48 hours. 12/31/20 11:25 Blood Culture (Wb) - Right Forearm Blood Culture - Preliminary No growth in 48 hours. 12/31/20 11:25 Urine, Catheterized Urine Culture - Final Culture exhibits no growth. 12/31/20 13:25 Interface Orders SARS-CoV-2 Antigen (Rapid) - Final Physical Exam Const Constitutional Narrative: A&O x2 Resp normal respiratory effort Cardio regular rate GI soft to palpation Inspection: Negative for abdominal distention Palpation: tender periumbilical and other (Indurated at umbilicus) Assessment & Plan Assessment/Plan (1) Abdominal wall abscess: PLAN: Patient's erythema is not that much improved at the umbilicus surrounding erythema did recede. Would plan for incision and debridement possible excision of mesh, possible bowel resection today. Did discuss with patient's daughter who is in agreement. Discussed the possibility of continued infection, bleeding, need for bowel resection, recurrent hernia, risk of DVT due to her history and anesthesia. Discussed that since the mesh was placed laparoscopically and was tacked up hopefully that is on the other side of the fa scia may not need to remove and would just do the incision and debridement today. Unsure the exact source as patient CT abdomen S with p.o. contrast did not show any leakage of contrast. Prema Saucedo M.D. Pager: [phone] [facility] [address] [place] [address], [facility], [address] [place] [address] Office: [phone]
[2021-01-05 08:45] LABS: Absolute Lymphocyte Count 1.13 X10^3/uL (0.83-4.51); Basophil# 0.06 X10^3/uL; Basophil% 0.6 % (0-1); Eosinophil# 0.41 X10^3/uL; Eosinophils% 3.8 % (0-5); Hematocrit 38.3 % (37-47); Hemoglobin 11.9 g/dL (12.0-15.0); Lymphocyte # 1.13 X10^3/ul (0.83-4.51); Lymphocyte % 10.6 % (19-41); Mean Corp Hgb Conc 31.1 g/dL (32-36); Mean Corpuscular Hgb 28.1 pg (27.0-32.0); Mean Corpuscular Volume 90.5 fL (81-99); Monocyte% 8.4 % (0-10); NRBC Flagged by Analyzer 0 % (0-5); Neutrophil # 8.03 X10^3/uL (2.7-7.7); Platelet Count 190 K/mm3 (150-450); RBC Distribution Width CV 16.5 % (11.6-14.6); RBC Distribution Width SD 53.6 fl (35.1-43.9); Red Blood Count 4.23 M/mm3 (4.2-5.4); White Blood Count 10.7 K/mm3 (4.4-11.0)
--- NOTE | 2021-01-05 09:18 | EKG12_ITS ---
Test Reason : PRE-OP Blood Pressure : / mmHG Vent. Rate : 075 BPM Atrial Rate : 075 BPM P-R Int : 180 ms QRS Dur : 092 ms QT Int : 394 ms P-R-T Axes : -01 -33 001 degrees QTc Int : 439 ms Normal sinus rhythm Left axis deviation Inferior infarct , age undetermined Anterolateral infarct , age undetermined, cannot be excluded Abnormal ECG Confirmed by ALIRIO MONTANEZ, DANYELLE ([id number]), metropolitan editor HOLLY FLOR ([id number]) on 01/06/2021 1:16:03 PM Referred By: YOUNG Confirmed By:DANYELLE AMEZQUITA MD
[2021-01-05 09:19] LABS: AST(SGOT) 172 U/L (15-37); Alanine Aminotransfer ALT/SGPT 205 U/L (13-56); Albumin, Serum 2.3 g/dL (3.2-5.0); Alkaline Phosphatase 491 U/L (45-117); Anion Gap 7 (5-15); BUN 33 mg/dL (7-18); BUN/Creat Ratio 20.9 RATIO (10-20); Calcium,Total 9.2 mg/dL (8.5-10.1); Chloride 107 mmol/L (98-107); Creatinine, Serum 1.58 mg/dL (0.55-1.02); EST Glomerular Filtration Rate 33 mL/min (>60); Est Glom Filt Rate - Afr Amer 40 mL/min (>60); Estimated Creatinine Clearance 33.21 ml/min; Globulin 3.5 g/dL (2.2-4.2); Glucose 86 mg/dL (74-106); Protein, Total 5.8 g/dL (6.4-8.2); Sodium Level 140 mmol/L (136-145)
[2021-01-05] MEDS: Multivitamins,Ther W-Minerals Tablet 1 TABLET PO (09:29)
[2021-01-05] MEDS: Ferrous Sulfate 325 MG Tablet PO (09:30)
[2021-01-05] MEDS: Tolterodine Tartrate 4 MG CAP.SA PO (09:30)
[2021-01-05] MEDS: Atenolol 25 MG Tablet PO ×2 (09:30→22:22)
[2021-01-05] MEDS: Gabapentin 100 MG Capsule PO (09:30)
[2021-01-05] MEDS: Hydroxychloroquine 200 MG Tablet PO (09:30)
[2021-01-05] MEDS: DULoxetine Hcl 60 MG Capsule PO ×2 (09:30→22:23)
[2021-01-05] MEDS: amLODIPine 10 MG Tablet PO (09:31)
[2021-01-05] MEDS: Senna/Docusate Sodium 1 Tablet 2 TABLET PO ×2 (09:31→22:21)
[2021-01-05] MEDS: levoFLOXacin IV 500 MG/100 ML BAG 100 MG IV (12:19)
[2021-01-05] MEDS: 0.9% Saline Lock 10 ML Syringe IV ×2 (12:32→18:34)
[2021-01-05] MEDS: 0.9% Normal Saline 1,000 ML 100 ML IV (13:15)
--- NOTE | 2021-01-05 13:30 | TISS_PTH ---
[id number] LOC: MS3 U#:[id number] AGE/SX: 85/F ROOM: NV322 RE12/31/[address]: Dr. Nela Blanco MD : [id number] BED: 1 DIS: 01/09/2021 SPEC #: [id number] RECD: 01/06/21 08:00 STATUS: KETURAH RENegrito #: [id number] OMER: 01/05/21 13:[address]: Prema Saucedo DEPT: SURGICAL PATHOLOGY RECD BY: Mesha Cornell ENTERED: 01/06/21 11:15 SP TYPE: Tissue Bx OT DR: Carey Duron, TOBACCO CHECKOUT CLERK-C MD Dr. Francisco Zamudio DO Dr. Jodi Hannan, MD Dr. Kathleen Fearon, DO Dr. Prakash Chand, MD Dr. Robert Leininger, MD Carolyn Graham, TOBACCO CHECKOUT CLERK-C Latia Gagnon, TOBACCO CHECKOUT CLERK-C Shannon Murphy TOBACCO CHECKOUT CLERK-C Tissues: A - TISSUE SURGICALLY REMOVED B - Small intestine biopsy Procedures: Surgery Specimen Level IV Surgery Specimen Level V HEADER OPERATION: Incision, drainage, debridement, umbilical abdomen, removal mesh PRE-OP DIAGNOSIS: Abdominal wall abscess TISSUE SUBMITTED: A ? Abdominal mesh, B ? Small bowel resection, suture sheets proximal bowel MICROSCOPIC DIAGNOSIS A. Mesh with soft tissue, removal: Fibrous tissue with associated mild chronic inflammation, mesh material and foreign body giant cell reaction. B. Small bowel, segmental resection: Serosal fibrosis, hemorrhage, fibrinoid material and acute inflammation consistent with abscess formation. Mucosal margins of resection with no pathologic change. See comment. AM:arthur 01/08/2021 COMMENT B. No mucosal mass lesions are identified. The findings are consistent with abnormal wall abscess. Clinical correlation is suggested. MICROSCOPIC DESCRIPTION Slides are reviewed. GROSS DESCRIPTION A - Received in fixative is one container labeled with the patient's name and designated abdominal mesh. The specimen consists of a round piece of mesh measuring 6 x 5.5 cm and up to 0.1 cm in thickness. A small piece of soft tissue is attached to it measuring 1 x 0.5 cm. The entire soft tissue is submitted in one cassette. Mesh is for gross identification only. / SJ:arthur 01/06/21 B - Received in fixative is one container labeled with the patient's name and designated small bowel resection, suture sheets proximal bowel. The specimen consists of a segment of bowel with attached mesentery measuring 19 cm in length. The mesenteric tissue measures 1 cm in width. The possible end is identified by a suture. Both resection margins are stapled. The serosal surface close to proximal distal margin shows ragged and hemorrhagic area. No mucosal lesion is identified. Also present in the container is a donut-shaped piece of tissue measuring 4.5 x 0.5 x 0.5 cm. The lumen contains a small amount of fecal material. More dictation will follow after fixation. / SJ:arthur 01/06/21 Sections of the bowel wall do not reveal any obvious mass lesion. [employer] Practitioner sections are submitted in nine cassettes as follows: 1 - donut-shaped piece of tissue, 2 - proximal resection margin, 3 - distal resection margin, 4 & 5 - ragged and hemorrhagic serosal surface close to proximal resection margin, 6?&?7 - ragged and hemorrhagic serosal surface closes to distal resection margin, 8 - uninvolved portion of bowel wall, 9 - mesenteric tissue. / LEIGHTON:arthur 01/07/21 TC:2 CPT: 72971, 13919
--- NOTE | 2021-01-05 13:44 | CASEMGMT ---
Social Work Note SW received note that pt's daughter was interested in TCU. SW in to speak with pt and pt's daughter present in room. SW introduced self and role at [facility]. SW spoke with pt and Candi about SNF. Patient was provided a list of SNF providers including quality and resource use data and consistent with the patient?s preferred geographic region, medical needs, and insurance network. Candi and pt agreeable to [facility] TCU. SW placed a call to [facility] with TCU and provided referral. TCU is able to accept when medically ready. Plan: TCU when medically ready Kymberly Nunez POT PRESS OPERATOR, DIRECTOR OF SUPPLY CHAIN
[2021-01-05] MEDS: metroNIDAZOLE 500 MG/100 ML BAG 100 MG IV (13:45)
--- NOTE | 2021-01-05 14:39 | PCM.PN.ID ---
ID ID: Route of nutrition/ use of supplements: [] Nutritional Intake: [] IV Site: [] Matos Catheter: [] Assessment & Plan Assessment/Plan (1) CKD (chronic kidney disease), stage IV: (2) Rheumatoid arthritis: (3) Abdominal wall abscess: PLAN: Pt was gone to OR this afternoon. New transaminitis and elevated alk phos for past few days, abx changed to vanc/levaquin/flagyl. Will follow surg results. Will follow, d/w Dr. Saucedo.
--- NOTE | 2021-01-05 15:26 | PN.HOSP_ITS ---
Subjective Subjective No fever or chills. Blood pressure and heart rate normal range. Objective Data Objective Data Vital Signs: Vital Signs Temp Pulse Resp BP Pulse Ox 98.1 F 72 18 144/72 H 99 01/05/21 13:03 01/05/21 13:03 01/05/21 13:03 01/05/21 13:03 01/05/21 13:03 Oxygen Flow Rate (L/min) [6] 2 Oxygen Flow Rate (L/min) [5] 2 Oxygen Flow Rate (L/min) [4] 2 Oxygen Flow Rate (L/min) [3] 2 Oxygen Flow Rate (L/min) [2] 2 Oxygen Flow Rate (L/min) [1 ( 2 Initial Baseline)] Oxygen Flow Rate (L/min) 2 Oxygen Delivery Method [6] Nasal Cannula Oxygen Delivery Method [5] Nasal Cannula Oxygen Delivery Method [4] Nasal Cannula Oxygen Delivery Method [3] Nasal Cannula Oxygen Delivery Method [2] Nasal Cannula Oxygen Delivery Method [1 ( Nasal Cannula Initial Baseline)] Oxygen Delivery Method Room Air Weight: 174 lb 15.694 oz Body Mass Index (BMI) 51.2 Intake & Output: Intake and Output for Last 24 Hours 01/03/21 01/04/21 01/05/21 23:59 23:59 23:59 Intake Total 1250 / 1400 1013.50 / 1013.50 222.25 / 222.25 Output Total 1550 / 1800 910 / 910 500 / 500 Balance -300 / -400 103.50 / 103.50 -277.75 / -277.75 Lab / Micro Data Result Diagrams: 01/05/21 08:38 01/05/21 08:38 Labs: Laboratory Results - last 24 hr 01/05/21 01/05/21 08:38 08:38 WBC 10.7 RBC 4.23 Hgb 11.9 L Hct 38.3 MCV 90.5 MCH 28.1 MCHC 31.1 L RDW Std Deviation 53.6 H RDW Coeff of Laxmi 16.5 H Plt Count 190 MPV 9.0 Immature Gran % (Auto) 1.600 H Neut % (Auto) 75.0 H Lymph % (Auto) 10.6 L Granite % (Auto) 8.4 Eos % (Auto) 3.8 Baso % (Auto) 0.6 Absolute Neuts (auto) 8.0 H Absolute Lymphs (auto) 1.13 Nucleated RBC % 0 Sodium 140 Potassium 5.0 Chloride 107 Carbon Dioxide 26.0 Anion Gap 7 BUN 33 H Creatinine 1.58 H Estim Creat Clear Calc 33.21 Est GFR (MDRD) Af Amer 40 L Est GFR (MDRD) Non-Af 33 L BUN/Creatinine Ratio 20.9 H Glucose 86 Calcium 9.2 Total Bilirubin 0.70 Direct Bilirubin 0.30 AST 172 H ALT 205 H Alkaline Phosphatase 491 H Total Protein 5.8 L Albumin 2.3 L Globulin 3.5 Micro: Microbiology 12/31/20 11:25 Blood Culture (Wb) - Right Forearm Blood Culture - Final No growth in 5 days. 12/31/20 10:45 Blood Culture (Wb) - Anticubital Left Blood Culture - Final No growth in 5 days. 01/01/21 13:30 Wound Abcess - Abdominal Gram Stain - Final 01/01/21 13:30 Wound Abcess - Abdominal Wound Culture - Final Klebsiella pneumoniae sp pneum Staphylococcus aureus 01/01/21 13:30 Wound Abcess - Abdominal Anaerobic Culture - Preliminary Checking for anaerobes, further studies to follow. 12/31/20 11:25 Urine, Catheterized Urine Culture - Final Culture exhibits no growth. 12/31/20 13:25 Interface Orders SARS-CoV-2 Antigen (Rapid) - Final Physical Exam Narrative General: Awake, disoriented to time, and place. Confused HEENT: Atraumatic, PERRLA, EOMI, Normocephalic Oral: No Gingival or Mucosal Lesions/ Ulcerations Neck: Supple, No JVD, Negative Carotid Bruits Lungs: Air entry diminished in bilateral lung bases. No crepitation/rhonchi Cardiovascular: Regular rate, Regular Rhythm, Normal S1, Normal S2, No murmurs Abdomen: Soft, mild tenderness present around umbilical area with induration. No discharge. Bowel sounds present. : No renal angle tenderness. No suprapubic tenderness. Extremities: No edema, Capillary Refill Less than 3 Seconds Skin: Induration and roughness around umbilical region Musculoskeletal: Deformity of the small joints in fingers and wrist, arthritis. ROM restricted. Neurological: Cranial nerves II-XII grossly intact, Deep Tendon Reflexes 2+/4 and Symmetrical, Neuro grossly intact Psych/Mental Status: Flat affect Assessment & Plan Assessment/Plan (1) Abdominal wall abscess: (2) Cellulitis, umbilical: PLAN: 1. Abdominal wall abscess with surrounding cellulitis around umbilical region: The patient is admitted MedSur floor. Seen by surgeon's improving on IV antibiotics, vancomycin and Zosyn. No fluctuance but induration and tenderness around umbilical region. Surgeon made her n.p.o. after midnight today in case if she needs surgery tomorrow. Abscess culture shows Klebsiella pneumoniae, 2+ and rare staph aureus. Klebsiella sensitive to Cipro and gentamicin. ESBL negative. Blood and urine cultures are negative. 01/05: Discussed with the surgeon and ID. Antibiotic changed to Levaquin and Flagyl and Zosyn discontinued. Vancomycin continued. Patient is being taken to or for local wound debridement/abscess drainage. 2. Bilateral groin Roseanna intertrigo: On nystatin. Purwick in place 3. CKD stage IV: Baseline creatinine runs around 1.8-1.9. BUN/creatinine is stable currently 1.58 4. Recent left posterior tibial vein DVT in August 2020. On Lovenox in place of Eliquis in case if he needs surgery. 5. 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 6. Hypertension: Blood pressure is elevated. Amlodipine dose increased to 10 mg daily. 7. Elevated transaminases/alkaline phosphatase probably medication/DILI or infection. Monitor liver function. Zosyn discontinued. Other chronic comorbidities include hypertension, restless leg syndrome, mild pain, depression, peripheral neuropathy, anxiety and depression and obesity grade 3. Patient also has constipation started on MiraLAX and senna S. Visit Charges Inpatient E&M: 66871 [facility] Hosp L2
[2021-01-05] MEDS: Bupivacaine Mpf 0.5% 30 ML VIAL (16:00)
--- NOTE | 2021-01-05 16:14 | OP.PCM_ITS ---
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 There is noted to be a perforation in the mid small bowel. As initial entry into the skin did reveal copious amounts of purulent fluid which was cultured. Surgeon: Prema Saucedo Type of Anesthesia: General/Supplemental Anesthesiologist: Tad Howard Special Medications: Levofloxacin IV patient is on for abdominal abscess in the floor, Flagyl 500 IV x1 Specimen's removed: Deep culture of purulent fluid and tissue, small bowel resection mid jejunum Drains: TAYLOR 15 Sinhala, Matos Estimated Blood Loss (mL): 100 cc Fluids Replaced: 1200 cc Description of Procedure: Indications: 85-year-old female with abdominal abscess near umbilicus. Culture showed Klebsiella pneumonia and rare staph aureus. Patient had previously placed mesh sutured to the fascia and then also tacked laparoscopically in 2009 after gallbladder surgery. Per family patient did have a fall at home, prior to noticing the redness at her umbilicus. Discussed procedure of incision and debridement, mesh removal, possible small bowel resection with patient and her daughter. Description of procedure: patient is brought into the operating room. Placed supine on the operating table. Timeout was completed verifying correct patient, procedure, site, positioning, special equipment prior to beginning procedure. General anesthesia was induced. Abdomen was prepped and draped in usual sterile fashion. A midline incision was planned just above and below the umbilicus. 15 blade scalpel was used to make the incision. There is copious amounts of purulent drainage coming from near the umbilicus incision. This was sent for culture. Incision was deepened with electrocautery to the fascia. The mesh was visualized. The mesh was grasped with Allis graspers and carefully removed. There was noted to be 8 protacks that were also removed during this process. Once the mesh was removed from the fascia there did note to be perforation in the small bowel right underneath the mesh. Lysis of adhesions were done to free the small bowel for about an hour with Metzenbaums. Once this area was freed there is only one location of perforation after the small bowel was ran. The section of the mid jejunum was removed using JUAN A-75 staplers and LigaSure impact to divide the mesentery. Small bowel was reanastomosed using a JUAN A 75 stapler and a TL 60. The mesenteric defect was closed with 3-0 Vicryl suture. The anastomosis was checked and easily fit two fingertips. Abdomen was irrigated. TAYLOR drain was placed in the right lower quadrant. 2 retention sutures were placed on the lower abdomen near the umbilicus as the fascia was fairly ratty there due to the previous infection. The subcutaneous tissue was debrided near the umbilicus to help remove any bacteria. The midline incision was closed with interrupted [id number] Prolene sutures. The skin was left open and the wound was packed with Betadine soaked Kerlix. Patient did also have a Matos placed in the end of the case for 700+ cc. Patient was extubated. Patient tolerated procedure well and taken the PACU in stable condition. Grafts/Implants Used: None Complications none
[2021-01-05] MEDS: Morphine 2 MG/ML Syringe IV (18:34)
[2021-01-05] MEDS: Vancomycin IV 1,000 MG/200 ML BAG 200 MG IV (19:19)
[2021-01-05 19:37] LABS: Vancomycin, Trough Level 16.8 ug/mL (5.0-15.0)
--- NOTE | 2021-01-05 21:05 | PCM.RX.CS ---
Consult Pharmacy has been consulted to manage selected antiobiotic: Vancomycin Type of Consult: Follow-up Suspected Infection: Skin/Soft tissue Labs: Sodium 140 mmol/L (136-145) 01/05/21 08:38 Potassium 5.0 mmol/L (3.5-5.1) 01/05/21 08:38 Chloride 107 mmol/L (98-107) 01/05/21 08:38 Carbon Dioxide 26.0 mmol/L (21.0-32.0) 01/05/21 08:38 Anion Gap 7 (5-15) 01/05/21 08:38 BUN 33 mg/dL (7-18) H 01/05/21 08:38 Creatinine 1.58 mg/dL (0.55-1.02) H 01/05/21 08:38 Est GFR (MDRD) Af Amer 40 mL/min (>60) L 01/05/21 08:38 Est GFR (MDRD) Non-Af 33 mL/min (>60) L 01/05/21 08:38 BUN/Creatinine Ratio 20.9 RATIO (10-20) H 01/05/21 08:38 Glucose 86 mg/dL (74-106) 01/05/21 08:38 Vancomycin Trough 16.8 ug/mL (5.0-15.0) H 01/05/21 18:56 Microbiology: Microbiology 12/31/20 11:25 Blood Culture (Wb) - Right Forearm Blood Culture - Final No growth in 5 days. 12/31/20 10:45 Blood Culture (Wb) - Anticubital Left Blood Culture - Final No growth in 5 days. 01/01/21 13:30 Wound Abcess - Abdominal Gram Stain - Final 01/01/21 13:30 Wound Abcess - Abdominal Wound Culture - Final Klebsiella pneumoniae sp pneum Staphylococcus aureus 01/01/21 13:30 Wound Abcess - Abdominal Anaerobic Culture - Preliminary Checking for anaerobes, further studies to follow. 12/31/20 11:25 Urine, Catheterized Urine Culture - Final Culture exhibits no growth. 12/31/20 13:25 Interface Orders SARS-CoV-2 Antigen (Rapid) - Final Goal Trough: 15-20 mcg/mL Pharmacy Plan for Drug Dosing: VANCOMYCIN LEVEL RECEIVED Current Vancomycin Dose: 1000mg q24h Number of Doses Received: x3 doses of 1000mg Vancomycin Level: 16.8 Hours Since Last Dose: 11.5 Renal Function: SrCr 1.58 Renal Function Trend: stable Lab/Micro: Vancomycin Plan/Comments: recommend continuing current dose of 1000mg q24h and checking a trough in 4 days Pending Level: 01/09/21 at 1900 Pharmacy Service will continue to monitor and adjust dosing as required. Follow-Up Labs: Trough Vancomycin - 01/09/21 at 1900
[2021-01-05] MEDS: Pramipexole Di-HCl 0.25 MG Tablet PO (22:22)
[2021-01-05] MEDS: Gabapentin 300 MG Capsule PO (22:22)
[2021-01-05] MEDS: metroNIDAZOLE 500 MG Tablet PO (22:23)
[2021-01-05] MEDS: Lactated Ringers 1,000 ML 100 ML IV (22:24)
[2021-01-06] VITALS (8 sets, daily range): BP systolic 102–131; BP diastolic 54–68; PULSE 76–88; RESP 16–20; TEMP 36.6–37.2; O2SAT 96–98
[2021-01-06] MEDS: oxyCODONE 5 MG Tablet PO ×2 (01:17→05:20)
[2021-01-06] MEDS: Nystatin Powder 15gm Bottle 1 APPLIC TOPICAL ×3 (05:01→22:02)
[2021-01-06] MEDS: metroNIDAZOLE 500 MG Tablet PO ×3 (05:01→22:02)
[2021-01-06 07:52] LABS: Absolute Lymphocyte Count 0.98 X10^3/uL (0.83-4.51); Absolute Neutrophil Count 11.6 X10^3/uL (2.0-7.7); Basophil# 0.05 X10^3/uL; Basophil% 0.4 % (0-1); Eosinophils% 0.7 % (0-5); Hematocrit 32.7 % (37-47); Hemoglobin 10.1 g/dL (12.0-15.0); Lymphocyte # 0.98 X10^3/ul (0.83-4.51); Mean Corp Hgb Conc 30.9 g/dL (32-36); Mean Corpuscular Hgb 28.3 pg (27.0-32.0); Mean Corpuscular Volume 91.6 fL (81-99); Monocyte# 1.22 X10^3/uL; Monocyte% 8.7 % (0-10); NRBC Flagged by Analyzer 0 % (0-5); Neutrophil # 11.57 X10^3/uL (2.7-7.7); Neutrophil % 81.9 % (47-70); Platelet Count 195 K/mm3 (150-450); RBC Distribution Width CV 16.8 % (11.6-14.6); Red Blood Count 3.57 M/mm3 (4.2-5.4); White Blood Count 14.1 K/mm3 (4.4-11.0)
[2021-01-06 08:03] LABS: Anion Gap 4 (5-15); BUN 29 mg/dL (7-18); BUN/Creat Ratio 20.7 RATIO (10-20); Calcium,Total 9.1 mg/dL (8.5-10.1); Chloride 110 mmol/L (98-107); EST Glomerular Filtration Rate 38 mL/min (>60); Est Glom Filt Rate - Afr Amer 46 mL/min (>60); Estimated Creatinine Clearance 37.48 ml/min; Glucose 86 mg/dL (74-106); Potassium 4.9 mmol/L (3.5-5.1); Sodium Level 140 mmol/L (136-145)
[2021-01-06 08:13] LABS: AST(SGOT) 92 U/L (15-37); Alanine Aminotransfer ALT/SGPT 197 U/L (13-56); Albumin, Serum 1.8 g/dL (3.2-5.0); Alkaline Phosphatase 433 U/L (45-117); Bilirubin, Direct 0.32 mg/dL (0.00-0.30); Magnesium 2.3 mg/dL (1.6-2.6); Phosphorus 3.9 mg/dL (2.5-4.9); Prealbumin 19.9 mg/dL (20.0-40.0); Protein, Total 4.8 g/dL (6.4-8.2)
[2021-01-06] MEDS: Lactated Ringers 1,000 ML 100 ML IV ×2 (08:24→17:44)
--- NOTE | 2021-01-06 09:31 | PCM.PN.HOSP ---
Subjective Subjective Confused and disoriented. Mild cough and wheezing occasional. Objective Data Objective Data Vital Signs: Vital Signs Temp Pulse Resp BP Pulse Ox 97.8 F 76 16 102/59 L 97 01/06/21 07:47 01/06/21 07:47 01/06/21 07:47 01/06/21 07:47 01/06/21 07:47 Oxygen Flow Rate (L/min) [6] 2 Oxygen Flow Rate (L/min) [5] 2 Oxygen Flow Rate (L/min) [4] 2 Oxygen Flow Rate (L/min) [3] 2 Oxygen Flow Rate (L/min) [2] 2 Oxygen Flow Rate (L/min) [1 ( 2 Initial Baseline)] Oxygen Flow Rate (L/min) 2 Oxygen Delivery Method [6] Nasal Cannula Oxygen Delivery Method [5] Nasal Cannula Oxygen Delivery Method [4] Nasal Cannula Oxygen Delivery Method [3] Nasal Cannula Oxygen Delivery Method [2] Nasal Cannula Oxygen Delivery Method [1 ( Nasal Cannula Initial Baseline)] Oxygen Delivery Method Nasal Cannula Weight: 174 lb 15.694 oz Body Mass Index (BMI) 51.2 Intake & Output: Intake and Output for Last 24 Hours 01/04/21 01/05/21 01/06/21 23:59 23:59 23:59 Intake Total 1013.50 / 1013.50 2128.92 / 2128.92 1100 / 1100 Output Total 910 / 910 1500 / 1500 555 / 555 Balance 103.50 / 103.50 628.92 / 628.92 545 / 545 Lab / Micro Data Result Diagrams: 01/06/21 07:10 01/06/21 07:10 Labs: Laboratory Results - last 24 hr 01/05/21 01/06/21 01/06/21 18:56 07:10 07:10 WBC 14.1 H RBC 3.57 L Hgb 10.1 L Hct 32.7 L MCV 91.6 MCH 28.3 MCHC 30.9 L RDW Std Deviation 55.0 H RDW Coeff of Laxmi 16.8 H Plt Count 195 MPV 9.0 Immature Gran % (Auto) 1.300 H Neut % (Auto) 81.9 H Lymph % (Auto) 7.[address] [place] % (Auto) 8.7 Eos % (Auto) 0.7 Baso % (Auto) 0.4 Absolute Neuts (auto) 11.6 H Absolute Lymphs (auto) 0.98 Nucleated RBC % 0 Sodium 140 Potassium 4.9 Chloride 110 H Carbon Dioxide 26.0 Anion Gap 4 L BUN 29 H Creatinine 1.40 H Estim Creat Clear Calc 37.48 Est GFR (MDRD) Af Amer 46 L Est GFR (MDRD) Non-Af 38 L BUN/Creatinine Ratio 20.7 H Glucose 86 Calcium 9.1 Phosphorus Magnesium Total Bilirubin Direct Bilirubin AST ALT Alkaline Phosphatase Total Protein Albumin Globulin Prealbumin Vancomycin Trough 16.8 H 01/06/21 01/06/21 07:10 07:10 WBC RBC Hgb Hct MCV MCH MCHC RDW Std Deviation RDW Coeff of Laxmi Plt Count MPV Immature Gran % (Auto) Neut % (Auto) Lymph % (Auto) [facility] % (Auto) Eos % (Auto) Baso % (Auto) Absolute Neuts (auto) Absolute Lymphs (auto) Nucleated RBC % Sodium Potassium Chloride Carbon Dioxide Anion Gap BUN Creatinine Estim Creat Clear Calc Est GFR (MDRD) Af Amer Est GFR (MDRD) Non-Af BUN/Creatinine Ratio Glucose Calcium Phosphorus 3.9 Cancelled Magnesium 2.3 Total Bilirubin 0.60 Direct Bilirubin 0.32 H AST 92 H ALT 197 H Alkaline Phosphatase 433 H Total Protein 4.8 L Albumin 1.8 L Globulin 3.0 Prealbumin 19.9 L Vancomycin Trough Micro: Microbiology 01/01/21 13:30 Wound Abcess - Abdominal Gram Stain - Final 01/01/21 13:30 Wound Abcess - Abdominal Wound Culture - Final Klebsiella pneumoniae sp pneum Staphylococcus aureus 01/01/21 13:30 Wound Abcess - Abdominal Anaerobic Culture - Final Bacteroides ovatus 12/31/20 11:25 Blood Culture (Wb) - Right Forearm Blood Culture - Final No growth in 5 days. 12/31/20 10:45 Blood Culture (Wb) - Anticubital Left Blood Culture - Final No growth in 5 days. 12/31/20 11:25 Urine, Catheterized Urine Culture - Final Culture exhibits no growth. 12/31/20 13:25 Interface Orders SARS-CoV-2 Antigen (Rapid) - Final Physical Exam Narrative General: Awake, disoriented to time, and place. Confused HEENT: Atraumatic, PERRLA, EOMI, Normocephalic Oral: No Gingival or Mucosal Lesions/ Ulcerations Neck: Supple, No JVD, Negative Carotid Bruits Lungs: Air entry diminished in bilateral lung bases, more on the right. Bilateral wheezing. Shallow breathing Cardiovascular: Regular rate, Regular Rhythm, Normal S1, Normal S2, No murmurs Abdomen: Soft, TAYLOR drain with small serosanguineous collection. Dressing is stained with Betadine. No bowel sounds. : No renal angle tenderness. No suprapubic tenderness. Extremities: No edema, Capillary Refill Less than 3 Seconds Skin: Induration and roughness around umbilical region Musculoskeletal: Deformity of the small joints in fingers and wrist, arthritis. ROM restricted. Neurological: Cranial nerves II-XII grossly intact, Deep Tendon Reflexes 2+/4 and Symmetrical, Neuro grossly intact Psych/Mental Status: Flat affect Assessment & Plan Assessment/Plan (1) Abdominal wall abscess: (2) Cellulitis, umbilical: PLAN: 1. Abdominal wall abscess with surrounding cellulitis around umbilical region: The patient is admitted MedSur floor. Seen by surgeon's improving on IV antibiotics, vancomycin and Zosyn. No fluctuance but induration and tenderness around umbilical region. Surgeon made her n.p.o. after midnight today in case if she needs surgery tomorrow. Abscess culture shows Klebsiella pneumoniae, 2+ and rare staph aureus. Klebsiella sensitive to Cipro and gentamicin. ESBL negative. Blood and urine cultures are negative. 01/05: Discussed with the surgeon and ID. Antibiotic changed to Levaquin and Flagyl and Zosyn discontinued. Vancomycin continued. Patient is being taken to or for local wound debridement/fistula resection 01/06: Aspiration culture shows MSSA, Klebsiella and Bacteroides. Mild improvement in liver chemistry. Portable chest x-ray reviewed shows normal mediastinum and georgi but underlying atelectasis. Moderate-sized hiatus hernia. Discussed with the nursing staff for aggressive incentive spirometry, bronchodilator as needed for wheezing and shortness of breath and PEP. ID consult reviewed. Discussed with the surgeon. 2. Bilateral groin Roseanna intertrigo: On nystatin. Purwick in place 3. CKD stage IV: Baseline creatinine runs around 1.8-1.9. BUN/creatinine is stable currently 1.58 4. Recent left posterior tibial vein DVT in August 2020. On Lovenox in place of Eliquis in case if he needs surgery. 5. 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 6. Hypertension: Blood pressure is elevated. Amlodipine dose increased to 10 mg daily. 7. Elevated transaminases/alkaline phosphatase probably medication/DILI or infection. Monitor liver function. Zosyn discontinued. Other chronic comorbidities include hypertension, restless leg syndrome, mild pain, depression, peripheral neuropathy, anxiety and depression and obesity grade 3. Patient also has constipation started on MiraLAX and senna S. Visit Charges Inpatient E&M: 67579 Subs Hosp L2
--- NOTE | 2021-01-06 09:40 | PCM.CONS.P ---
Assessment & Plan Assessment/Plan (1) Debility: (2) Low back pain: QUALIFIERS: Back pain laterality: bilateral Chronicity: chronic Sciatica presence: without sciatica Qualified Code(s): M54.5 - Low back pain; G89.29 - Other chronic pain (3) CKD (chronic kidney disease), stage IV: (4) Anemia: QUALIFIERS: Anemia type: iron deficiency Iron deficiency anemia type: chronic blood loss Qualified Code(s): D50.0 - Iron deficiency anemia secondary to blood loss (chronic) (5) Rheumatoid arthritis: QUALIFIERS: Rheumatoid arthritis location: unspecified site Rheumatoid factor presence: unspecified presence Qualified Code(s): M06.9 - Rheumatoid arthritis, unspecified (6) Migraine: QUALIFIERS: Intractability: not intractable Migraine type: unspecified Status migrainosus presence: without status migrainosus Qualified Code(s): G43.909 - Migraine, unspecified, not intractable, without status migrainosus (7) Asthma: QUALIFIERS: Asthma complication type: uncomplicated Asthma persistence: intermittent Asthma severity: mild Qualified Code(s): J45.20 - Mild intermittent asthma, uncomplicated (8) Hiatal hernia: (9) Lung mass: (10) Osteoarthritis involving multiple joints on both sides of body: (11) Candidal intertrigo: (12) Abdominal wall abscess: (13) Transaminitis: (14) Spondylosis of lumbar region without myelopathy or radiculopathy: PLAN: 85-year-old with multiple comorbidities, seen today for initial palliative care consultation secondary to debility and weakness. Has current abdominal wall abscess, went to surgery 01/05 and had small bowel resection as well as removal of abscess. 1. Debility and weakness: Current infection exacerbating, she is confused at baseline per daughter. Having a chest x-ray done today per attending. She will need ongoing therapy, probable SNF. We will continue to follow her pending daughter approval. 2. Chronic low back pain: Seems to be controlled at this point. Has as needed Tylenol, gabapentin, IV morphine, and oxycodone 5 mg every 4 hours as needed. Follows with pain management for injections and meds. 3. Abdominal wound: Postop left surgically open, packing with wet-to-dry. Wound nurse following. Again, she will need extensive therapy upon discharge. 4. Lung mass/severe OA/RA/hiatal hernia/lumbar spondylosis/anemia/asthma cognitive deficit: Complicates overall care, management, recovery, and prognosis. Management per specialists and PCP. Daughter tells me patient has had work-up for dementia which was negative. However, she has had significant short-term and long-term memory loss. I looked back through her imaging reports, she had a brain CT 07/18/20 secondary to a fall and headache. Report states the skull is intact with diffuse hyperostosis, normal CT of brain. Thank you for the opportunity to participate in this patient's care, please do not hesitate to contact [facility] with any further questions or concerns. Palliative direct line is [phone]. Talked extensively with the daughter and patient about potential palliative services. We will follow up after discharge and will discuss palliative services further at that time. Greater than 50% of F2F visit dedicated to education and counseling of palliative care services, medications, comorbid conditions and potential assistance with management, and plan of care moving forward. Goals of Start time: 0940 End time: 1045 HPI Consult Data Date of Consult: 01/06/21 HPI Narrative HPI Narrative: LOLLY HUSAIN, is a 85 F who presented to [facility] 12/31/2020 with complaints of abdominal pain, she had seen her PCP Dr. Amado, was put on antibiotics and referred to surgery, who sent patient to ED for labs, CT, IV antibiotics, and admission to the hospital for further evaluation and management. Patient has been having abdominal pain and redness around her umbilicus. She has a superinfection of yeast under her breasts and in her abdominal folds. Infectious disease was consulted for antibiotic management. Patient was taken to surgery by Dr. Saucedo 01/05 for I&D of abdominal abscess, removal of mesh, and small bowel resection, also had extensive lysis of adhesions. She had copious amounts of purulent fluid and found to have a hole in the mid small bowel. Discussed patient's status/plan of care with her attending, Dr. North, as well as surgeon, Dr. Saucedo. Patient has increased confusion and disorientation today, as well as developing a mild cough and wheezing. They are checking a chest x-ray. It is noted her abscess culture showing Klebsiella pneumoniae, 2+ and rare staph aureus. Patient is on Eliquis due to a DVT in August 2020. Her renal function seems to be stable. Blood pressures have been elevated. Having some issues with constipation, she was started on MiraLAX and senna S. Patient reports some discomfort to her abdomen. She denies any current back pain. No nausea or vomiting. She is quite confused and states she feels like her mind is mixed up right now. Her mouth is very dry, remains n.p.o. Patient had a significant surgery for her age and comorbidities, she seems to be doing fairly well but again confused and weak. We discussed palliative care, however gave limited information due to her confusion and anxiety over this. Called daughter, Candi to discuss as well. Daughter Candi Torres is her HCPOA, contact info [phone]. Plan for discharge is to go to TCU for further rehab. She lives with her daughter in a one-story home with 3-4 steps and railing to enter. Her daughter does assist her with ADLs. Patient does not drive. DME in the home include shower chair, raised toilet, cane, walker, wheelchair, grab bars, and home oxygen through [employer] as needed. She uses [facility] for pharmacy. Also follows with Dr. Nickerson for podiatry, Dr. Jimenez pain management, and Dr. Booker for rheumatoid. [facility] Medical History Abnormal bruising Anxiety Chronic neck and back pain Difficulty balancing when standing DVT (deep venous thrombosis) Hearing loss, left Hearing loss, right Incontinence Knee pain Migraines Non-smoker On home oxygen therapy Polyosteoarthritis Polyosteoarthritis Severe headache Shoulder pain SOB (shortness of breath) Home Medications diphenoxylate-atropine [Lomotil] 2.5 mg PO TID PRN PRN 02/16/14 [History Last Taken Unknown] atenolol 25 mg PO BID 06/09/15 [History Last Taken 12/31/20] sumatriptan succinate [Imitrex] 100 mg PO .X1 PRN MDD MIGRAINE 06/09/15 [History Last Taken Unknown] multivitamin with folic acid [Thera] 1 tab PO DAILY 01/29/18 [History Last Taken 2 Weeks Ago ~12/17/20] furosemide 20 mg PO BID 07/21/18 [History Last Taken 12/31/20] ferrous sulfate 325 mg PO DAILY 10/19/19 [History Last Taken 12/31/20] solifenacin 10 mg PO DAILY 10/19/19 [History Last Taken 12/31/20] albuterol sulfate 1 - 2 puff INHALATION Q4H PRN PRN #1 inhaler 10/23/19 [Rx Last Taken Unknown] nystatin 1 applic TOPICAL TID #1 bottle 10/23/19 [Rx Last Taken 12/30/20] apixaban 5 mg PO BID 10/20/20 [History Last Taken 12/31/20] cephalexin 500 mg capsule 500 mg PO BID 12/31/20 [History Last Taken 12/31/20] duloxetine 60 mg PO BID 12/31/20 [History Last Taken 12/31/20] gabapentin 100 mg PO BID 12/31/20 [History Last Taken 12/31/20] gabapentin 300 mg capsule 300 mg PO QHS cap 12/31/20 [History Last Taken 12/30/20] hydroxychloroquine 200 mg tablet 200 mg PO BID tab 12/31/20 [History Last Taken 12/31/20] prednisone 10 mg tablet 10 mg PO DAILY PRN 12/31/20 [History Last Taken Unknown] ropinirole 0.5 mg tablet 0.5 mg PO QHS tab 12/31/20 [History Last Taken 12/30/20] Allergy/AdvReac Type Severity Reaction Status Date / Time No Known Allergies Allergy Verified 12/31/20 10:39 Family History Mother No significant active problems Other Headache Surgical History History of appendectomy History of back surgery History of cholecystectomy History of foot surgery History of hernia surgery History of surgery on wrist Social History household members: family housing: house Smoking Status: Never smoker alcohol intake: never ROS ROS Narrative ROS limited secondary to cognitive status. Reports mild abdominal discomfort. No low back pain at this time. No dizziness, chest pain, or shortness of breath. She is wearing O2 at 2 L. No fever or chills. Constipated. Bruising to arms. No focal deficits. Review of systems otherwise negative from a constitutional, HEENT, respiratory, cardiovascular, GI, genitourinary, musculoskeletal, skin, neurologic, psychiatric and hematologic system unless stated above. Physical Exam Const alert General Appearance: anxious Orientation / Consciousness: oriented to person and confused Exam Limitations: altered mental status and physical limitations Nutritional Appearance: morbidly obese HEENT normocephalic and head/scalp atraumatic Mouth: dry mucous membranes Neck supple General: trachea midline Resp normal respiratory effort Auscultation: wheezes expiratory wheezes (faint/mild) and diminished lung sounds Cardio regular rate, regular rhythm, S1 normal heart sound and S2 normal heart sound GI Inspection: incision other (dressing intact, did not observe incision) Extremity no clubbing, cyanosis or edema Skin General Skin Exam: dry skin, ecchymosis and petechiae Neuro moves all extremities and no focal motor deficits Sensorium / Orientation: oriented to person Psych Memory / Cognition: cognition impaired Insight: limited Judgement: limited
--- NOTE | 2021-01-06 09:44 | PCM.PN.SRG ---
Subjective Subjective Patient still confused a little today. Patient's TAYLOR is sanguinous. Midline incision dressed with wet-to-dry's by wound nurse Objective Data Objective Data Vital Signs: Vital Signs Temp Pulse Resp BP Pulse Ox 97.8 F 76 16 102/59 L 97 01/06/21 07:47 01/06/21 07:47 01/06/21 07:47 01/06/21 07:47 01/06/21 07:47 Oxygen Flow Rate (L/min) [6] 2 Oxygen Flow Rate (L/min) [5] 2 Oxygen Flow Rate (L/min) [4] 2 Oxygen Flow Rate (L/min) [3] 2 Oxygen Flow Rate (L/min) [2] 2 Oxygen Flow Rate (L/min) [1 ( 2 Initial Baseline)] Oxygen Flow Rate (L/min) 2 Oxygen Delivery Method [6] Nasal Cannula Oxygen Delivery Method [5] Nasal Cannula Oxygen Delivery Method [4] Nasal Cannula Oxygen Delivery Method [3] Nasal Cannula Oxygen Delivery Method [2] Nasal Cannula Oxygen Delivery Method [1 ( Nasal Cannula Initial Baseline)] Oxygen Delivery Method Nasal Cannula Weight: 174 lb 15.694 oz Body Mass Index (BMI) 51.2 Intake & Output: Intake and Output for Last 24 Hours 01/04/21 01/05/21 01/06/21 23:59 23:59 23:59 Intake Total 1013.50 / 1013.50 2128.92 / 2128.92 1100 / 1100 Output Total 910 / 910 1500 / 1500 555 / 555 Balance 103.50 / 103.50 628.92 / 628.92 545 / 545 Lab / Micro Data Result Diagrams: 01/06/21 07:10 01/06/21 07:10 Labs: Laboratory Results - last 24 hr 01/05/21 01/06/21 01/06/21 18:56 07:10 07:10 WBC 14.1 H RBC 3.57 L Hgb 10.1 L Hct 32.7 L MCV 91.6 MCH 28.3 MCHC 30.9 L RDW Std Deviation 55.0 H RDW Coeff of Laxmi 16.8 H Plt Count 195 MPV 9.0 Immature Gran % (Auto) 1.300 H Neut % (Auto) 81.9 H Lymph % (Auto) 7.0 L Sheridan % (Auto) 8.7 Eos % (Auto) 0.7 Baso % (Auto) 0.4 Absolute Neuts (auto) 11.6 H Absolute Lymphs (auto) 0.98 Nucleated RBC % 0 Sodium 140 Potassium 4.9 Chloride 110 H Carbon Dioxide 26.0 Anion Gap 4 L BUN 29 H Creatinine 1.40 H Estim Creat Clear Calc 37.48 Est GFR (MDRD) Af Amer 46 L Est GFR (MDRD) Non-Af 38 L BUN/Creatinine Ratio 20.7 H Glucose 86 Calcium 9.1 Phosphorus Magnesium Total Bilirubin Direct Bilirubin AST ALT Alkaline Phosphatase Total Protein Albumin Globulin Prealbumin Vancomycin Trough 16.8 H 01/06/21 01/06/21 07:10 07:10 WBC RBC Hgb Hct MCV MCH MCHC RDW Std Deviation RDW Coeff of Laxmi Plt Count MPV Immature Gran % (Auto) Neut % (Auto) Lymph % (Auto) Sheridan % (Auto) Eos % (Auto) Baso % (Auto) Absolute Neuts (auto) Absolute Lymphs (auto) Nucleated RBC % Sodium Potassium Chloride Carbon Dioxide Anion Gap BUN Creatinine Estim Creat Clear Calc Est GFR (MDRD) Af Amer Est GFR (MDRD) Non-Af BUN/Creatinine Ratio Glucose Calcium Phosphorus 3.9 Cancelled Magnesium 2.3 Total Bilirubin 0.60 Direct Bilirubin 0.32 H AST 92 H ALT 197 H Alkaline Phosphatase 433 H Total Protein 4.8 L Albumin 1.8 L Globulin 3.0 Prealbumin 19.9 L Vancomycin Trough Micro: Microbiology 01/01/21 13:30 Wound Abcess - Abdominal Gram Stain - Final 01/01/21 13:30 Wound Abcess - Abdominal Wound Culture - Final Klebsiella pneumoniae sp pneum Staphylococcus aureus 01/01/21 13:30 Wound Abcess - Abdominal Anaerobic Culture - Final Bacteroides ovatus 12/31/20 11:25 Blood Culture (Wb) - Right Forearm Blood Culture - Final No growth in 5 days. 12/31/20 10:45 Blood Culture (Wb) - Anticubital Left Blood Culture - Final No growth in 5 days. 12/31/20 11:25 Urine, Catheterized Urine Culture - Final Culture exhibits no growth. 12/31/20 13:25 Interface Orders SARS-CoV-2 Antigen (Rapid) - Final Physical Exam Resp normal respiratory effort Cardio regular rate GI GI Narrative: Abdomen: Soft, nondistended, tender near incision's dressed clean dry and intact, no peritoneal signs, TAYLOR sanguinous Assessment & Plan Assessment/Plan (1) S/P small bowel resection: (2) Small bowel perforation: PLAN: Patient is slightly more confused this morning we will continue to monitor, continue antibiotics per ID Patient's wound is being packed with wet-to-dry's. Patient remain n.p.o. until starts having bowel function. Appreciate medicine's assistance with medical management Prema Saucedo M.D. Pager: [phone] [facility] [address] [place] [address], [address] [place] [address] Office: [phone]
[2021-01-06] MEDS: Gabapentin 100 MG Capsule PO ×2 (09:56→17:01)
[2021-01-06] MEDS: Tolterodine Tartrate 4 MG CAP.SA PO (09:57)
[2021-01-06] MEDS: Atenolol 25 MG Tablet PO ×2 (09:57→22:04)
[2021-01-06] MEDS: amLODIPine 10 MG Tablet PO (09:58)
[2021-01-06] MEDS: Ferrous Sulfate 325 MG Tablet PO (10:00)
--- NOTE | 2021-01-06 10:06 | NURSING ---
wound photo: mid abdomen
--- NOTE | 2021-01-06 10:08 | CASEMGMT ---
Social Work Note Pt is not medically ready for discharge today. SW placed a call to Danielle with TCU and informed her. Plan: TCU when medically ready Kymberly Nunez [employer]ILRO[employer] TRACK INSPECTOR, TALENT RECRUITER
[2021-01-06] MEDS: Ipratropium/Albuterol Sulfate 3 ML AMPUL.NEB INHALATION ×2 (12:59→19:43)
--- NOTE | 2021-01-06 13:05 | RAD_ITS ---
STUDY: X-RAY CHEST REASON FOR EXAM: Female, 85 years old. SOB, Cough -- laparotomy yesterday TECHNIQUE: Single AP portable view of the chest. COMPARISON: Comparison is made with prior examination dated 05/04/2020. FINDINGS: The lungs are clear and expanded. There is no demonstrated pleural abnormality. There is mild cardiac enlargement. Normal mediastinum and georgi. Normal visualized pulmonary arteries. There is atherosclerotic calcification of the aortic arch with tortuosity. There are diffuse degenerative changes of the visualized thoracic spine. Normal visualized ribs, clavicles, and shoulders. Moderate sized hiatal hernia. RAD/Chest 1 View (Portable) IMPRESSION: Moderate sized hiatal hernia. Electronically Signed: Sandoval Arteaga MD at 13:30 EDT , Service support ,
--- NOTE | 2021-01-06 14:06 | PCM.PN.ID ---
Physical Exam Narrative Feeling ok today, no fever Const alert General Appearance: cooperative Resp clear to auscultation bilaterally Cardio regular rate and regular rhythm GI GI Narrative: minimal sorenss Skin no rashes or lesions noted ID ID: Route of nutrition/ use of supplements: [] Nutritional Intake: [] IV Site: [] Matos Catheter: [] Assessment & Plan Assessment/Plan (1) S/P small bowel resection: (2) Transaminitis: (3) CKD (chronic kidney disease), stage IV: (4) Rheumatoid arthritis: QUALIFIERS: Rheumatoid arthritis location: unspecified site Rheumatoid factor presence: unspecified presence Qualified Code(s): M06.9 - Rheumatoid arthritis, unspecified (5) Abdominal wall abscess: PLAN: Taken to OR 01/05/[address] Saucedo for fistula resection and I&D. On vanc/levaquin/flagyl. Will follow surg results. Aspiration cx with mssa, klebs, bacteroides. LFT better today. Will follow
[2021-01-06] MEDS: Vancomycin IV 1,000 MG/200 ML BAG 200 MG IV (19:15)
--- NOTE | 2021-01-06 21:55 | NURSING ---
This RN entered pt's room for 2200 medication administration. Pt sitting in recliner chair, tearful and stating she wants to go home. Pt also wanting water to drink. Much 1:1 given at this time, pt reoriented to time and place, reminded that she is NPO. Pt agreeable to taking HS medications and tylenol for abd pain. Pt assisted with finding something to watch on tv at this time, and appeared to calm down.
[2021-01-06] MEDS: DULoxetine Hcl 60 MG Capsule PO (22:02)
[2021-01-06] MEDS: Pramipexole Di-HCl 0.25 MG Tablet PO (22:02)
[2021-01-06] MEDS: Gabapentin 300 MG Capsule PO (22:03)
[2021-01-06] MEDS: Acetaminophen 325 MG Tablet 650 MG PO (22:05)
[2021-01-06] MEDS: 0.9% Saline Lock 10 ML Syringe IV (23:26)
[2021-01-07] VITALS (9 sets, daily range): BP systolic 103–134; BP diastolic 39–62; PULSE 70–86; RESP 16–20; TEMP 36.5–36.9; O2SAT 94–100
[2021-01-07] MEDS: Lactated Ringers 1,000 ML 100 ML IV (05:09)
[2021-01-07] MEDS: Nystatin Powder 15gm Bottle 1 APPLIC TOPICAL ×3 (05:09→22:35)
[2021-01-07 05:54] LABS: Absolute Lymphocyte Count 0.62 X10^3/uL (0.83-4.51); Absolute Neutrophil Count 6.3 X10^3/uL (2.0-7.7); Basophil# 0.04 X10^3/uL; Basophil% 0.5 % (0-1); Eosinophil# 0.12 X10^3/uL; Eosinophils% 1.5 % (0-5); Hematocrit 26.4 % (37-47); Hemoglobin 8.3 g/dL (12.0-15.0); Lymphocyte # 0.62 X10^3/ul (0.83-4.51); Lymphocyte % 7.7 % (19-41); Mean Corp Hgb Conc 31.4 g/dL (32-36); Mean Corpuscular Hgb 28.6 pg (27.0-32.0); Mean Platelet Vol. 8.8 fl (6.2-12.0); Monocyte# 0.78 X10^3/uL; Monocyte% 9.7 % (0-10); NRBC Flagged by Analyzer 0 % (0-5); Neutrophil # 6.32 X10^3/uL (2.7-7.7); Neutrophil % 78.6 % (47-70); Platelet Count 144 K/mm3 (150-450); RBC Distribution Width CV 17.2 % (11.6-14.6); RBC Distribution Width SD 55.8 fl (35.1-43.9)
[2021-01-07] MEDS: metroNIDAZOLE 500 MG Tablet PO ×3 (05:58→22:45)
[2021-01-07 06:23] LABS: AST(SGOT) 38 U/L (15-37); Alanine Aminotransfer ALT/SGPT 119 U/L (13-56); Albumin, Serum 1.8 g/dL (3.2-5.0); Alkaline Phosphatase 302 U/L (45-117); Anion Gap 5 (5-15); BUN 36 mg/dL (7-18); BUN/Creat Ratio 21.8 RATIO (10-20); Bilirubin, Direct 0.18 mg/dL (0.00-0.30); Calcium,Total 8.8 mg/dL (8.5-10.1); Chloride 107 mmol/L (98-107); Creatinine, Serum 1.65 mg/dL (0.55-1.02); EST Glomerular Filtration Rate 32 mL/min (>60); Est Glom Filt Rate - Afr Amer 38 mL/min (>60); GGTP 416 U/L (5-55); Globulin 2.8 g/dL (2.2-4.2); Glucose 96 mg/dL (74-106); Potassium 4.4 mmol/L (3.5-5.1); Protein, Total 4.6 g/dL (6.4-8.2); Sodium Level 138 mmol/L (136-145)
[2021-01-07] MEDS: Ipratropium/Albuterol Sulfate 3 ML AMPUL.NEB INHALATION ×3 (07:05→19:36)
--- NOTE | 2021-01-07 07:35 | PN.SURG_ITS ---
Subjective Subjective Patient denies any abdominal pain. Patient denies flatus. hemoglobin dropped to 8.3?patient's TAYLOR is serosanguineous Objective Data Objective Data Vital Signs: Vital Signs Temp Pulse Resp BP Pulse Ox 98.0 F 79 18 118/60 98 01/07/21 03:35 01/07/21 03:35 01/07/21 03:35 01/07/21 03:35 01/07/21 03:35 Oxygen Flow Rate (L/min) [6] 2 Oxygen Flow Rate (L/min) [5] 2 Oxygen Flow Rate (L/min) [4] 2 Oxygen Flow Rate (L/min) [3] 2 Oxygen Flow Rate (L/min) [2] 2 Oxygen Flow Rate (L/min) [1 ( 2 Initial Baseline)] Oxygen Flow Rate (L/min) 2 Oxygen Delivery Method [6] Nasal Cannula Oxygen Delivery Method [5] Nasal Cannula Oxygen Delivery Method [4] Nasal Cannula Oxygen Delivery Method [3] Nasal Cannula Oxygen Delivery Method [2] Nasal Cannula Oxygen Delivery Method [1 ( Nasal Cannula Initial Baseline)] Oxygen Delivery Method Room Air Weight: 174 lb 15.694 oz Body Mass Index (BMI) 51.2 Intake & Output: Intake and Output for Last 24 Hours 01/05/21 01/06/21 01/07/21 23:59 23:59 23:59 Intake Total 2128.92 / 2128.92 2768.33 / 2768.33 565 / 565 Output Total 1500 / 1500 1125 / 1125 355 / 355 Balance 628.92 / 628.92 1643.33 / 1643.33 210 / 210 Lab / Micro Data Result Diagrams: 01/07/21 05:45 01/07/21 05:45 Labs: Laboratory Results - last 24 hr 01/06/21 01/06/21 01/06/21 07:10 07:10 07:10 WBC 14.1 H RBC 3.57 L Hgb 10.1 L Hct 32.7 L MCV 91.6 MCH 28.3 MCHC 30.9 L RDW Std Deviation 55.0 H RDW Coeff of Laxmi 16.8 H Plt Count 195 MPV 9.0 Immature Gran % (Auto) 1.300 H Neut % (Auto) 81.9 H Lymph % (Auto) 7.0 L [place] % (Auto) 8.7 Eos % (Auto) 0.7 Baso % (Auto) 0.4 Absolute Neuts (auto) 11.6 H Absolute Lymphs (auto) 0.98 Nucleated RBC % 0 Sodium 140 Potassium 4.9 Chloride 110 H Carbon Dioxide 26.0 Anion Gap 4 L BUN 29 H Creatinine 1.40 H Estim Creat Clear Calc 37.48 Est GFR (MDRD) Af Amer 46 L Est GFR (MDRD) Non-Af 38 L BUN/Creatinine Ratio 20.7 H Glucose 86 Calcium 9.1 Phosphorus 3.9 Magnesium 2.3 Total Bilirubin 0.60 Direct Bilirubin 0.32 H GGT AST 92 H ALT 197 H Alkaline Phosphatase 433 H Total Protein 4.8 L Albumin 1.8 L Globulin 3.0 Prealbumin 19.9 L 01/06/21 01/07/21 01/07/21 07:10 05:45 05:45 WBC 8.0 RBC 2.90 L Hgb 8.3 L Hct 26.4 L MCV 91.0 MCH 28.6 MCHC 31.4 L RDW Std Deviation 55.8 H RDW Coeff of Laxmi 17.2 H Plt Count 144 L MPV 8.8 Immature Gran % (Auto) 2.000 H Neut % (Auto) 78.6 H Lymph % (Auto) 7.7 L [place] % (Auto) 9.7 Eos % (Auto) 1.5 Baso % (Auto) 0.5 Absolute Neuts (auto) 6.3 Absolute Lymphs (auto) 0.62 L Nucleated RBC % 0 Sodium 138 Potassium 4.4 Chloride 107 Carbon Dioxide 26.0 Anion Gap 5 BUN 36 H Creatinine 1.65 H Estim Creat Clear Calc 31.80 Est GFR (MDRD) Af Amer 38 L Est GFR (MDRD) Non-Af 32 L BUN/Creatinine Ratio 21.8 H Glucose 96 Calcium 8.8 Phosphorus Cancelled Magnesium Total Bilirubin 0.50 Direct Bilirubin 0.18 GGT 416 H AST 38 H ALT 119 H Alkaline Phosphatase 302 H Total Protein 4.6 L Albumin 1.8 L Globulin 2.8 Prealbumin Micro: Microbiology 01/05/21 Unknown Tissue - Abdominal Gram Stain - Final 01/05/21 Unknown Tissue - Abdominal Anaerobic Culture - Preliminary No anaerobic bacteria isolated. 01/05/21 14:07 Wound Drainage - Abdominal Gram Stain - Final 01/01/21 13:30 Wound Abcess - Abdominal Gram Stain - Final 01/01/21 13:30 Wound Abcess - Abdominal Wound Culture - Final Klebsiella pneumoniae sp pneum Staphylococcus aureus 01/01/21 13:30 Wound Abcess - Abdominal Anaerobic Culture - Final Bacteroides ovatus 12/31/20 11:25 Blood Culture (Wb) - Right Forearm Blood Culture - Final No growth in 5 days. 12/31/20 10:45 Blood Culture (Wb) - Anticubital Left Blood Culture - Final No growth in 5 days. 12/31/20 11:25 Urine, Catheterized Urine Culture - Final Culture exhibits no growth. 12/31/20 13:25 Interface Orders SARS-CoV-2 Antigen (Rapid) - Final Radiography Diagnostic Testing: Radiology Impression Chest X-Ray 01/06/21 13:05 IMPRESSION: Moderate sized hiatal hernia. Electronically Signed: Sandoval Arteaga MD at 13:30 EDT , Service support , Physical Exam Resp normal respiratory effort Cardio regular rate GI GI Narrative: Abdomen: Soft, nondistended, tender near incision's dressed clean dry and intact, no peritoneal signs, TAYLOR serosanguineous Assessment & Plan Assessment/Plan (1) S/P small bowel resection: (2) Small bowel perforation: PLAN: Patient's wound is being packed with wet-to-dry's-may replace the wound VAC tomorrow. Patient remain n.p.o. until starts having bowel function. Patient hemoglobin is down to 8.3 from 10.1. Likely hemodilutional as patient states TAYLOR is serosanguineous Prema Saucedo M.D. Pager: [phone] [facility] [address] [place] [address], [facility], [address] [place] [address] Office: [phone]
[2021-01-07 09:02] LABS: Vitamin B12 373 pg/mL (211-911)
--- NOTE | 2021-01-07 09:06 | NURSING ---
wound photo: abdomen
[2021-01-07] MEDS: Tolterodine Tartrate 4 MG CAP.SA PO (09:21)
[2021-01-07] MEDS: Atenolol 25 MG Tablet PO ×2 (09:21→22:50)
[2021-01-07] MEDS: Gabapentin 100 MG Capsule PO ×2 (09:22→16:49)
[2021-01-07] MEDS: Ferrous Sulfate 325 MG Tablet PO (09:22)
[2021-01-07] MEDS: Senna/Docusate Sodium 1 Tablet 2 TABLET PO ×2 (09:23→22:45)
[2021-01-07] MEDS: Polyethylene Glycol 3350 17 GM PACKET PO (09:23)
[2021-01-07] MEDS: amLODIPine 10 MG Tablet PO (09:23)
[2021-01-07] MEDS: Multivitamins,Ther W-Minerals Tablet 1 TABLET PO (09:23)
[2021-01-07] MEDS: DULoxetine Hcl 60 MG Capsule PO ×2 (09:24→22:45)
[2021-01-07] MEDS: levoFLOXacin IV 500 MG/100 ML BAG 100 MG IV (09:30)
[2021-01-07] MEDS: Dext 5%-0.45% NS 1,000 ML 50 ML IV (09:32)
--- NOTE | 2021-01-07 10:31 | CASEMGMT ---
Social Work Note Pt is not medically ready for discharge. SW placed a call to [place] with TCU and updated her. Plan: TCU when medically cleared Kymberly Nunez DATABASE SUPPORT, RN HEMATOLOGY
--- NOTE | 2021-01-07 14:35 | PCM.PN.ID ---
Physical Exam Narrative Feeling better, more energy, mild abd soreness Const alert and no apparent distress General Appearance: cooperative Resp clear to auscultation bilaterally Cardio regular rate and regular rhythm GI GI Narrative: mild abd soreness Skin no rashes or lesions noted ID ID: Route of nutrition/ use of supplements: [] Nutritional Intake: [] IV Site: [] Matos Catheter: [] Assessment & Plan Assessment/Plan (1) S/P small bowel resection: (2) Transaminitis: (3) CKD (chronic kidney disease), stage IV: (4) Rheumatoid arthritis: QUALIFIERS: Rheumatoid arthritis location: unspecified site Rheumatoid factor presence: unspecified presence Qualified Code(s): M06.9 - Rheumatoid arthritis, unspecified (5) Abdominal wall abscess: PLAN: Taken to OR 01/05/[address] Saucedo for fistula resection and I&D. On vanc/levaquin/flagyl. Surg cx with GPC, some yeast. Aspiration cx with mssa, klebs, bacteroides. LFT improving. Will follow
--- NOTE | 2021-01-07 14:38 | PCM.PN.HOSP ---
Subjective Subjective Patient is awake and looks more alert than yesterday. Complained of mild abdominal discomfort. Has not passed flatus yet Creatinine went up. Upper extremities are puffy and edematous. Objective Data Objective Data Vital Signs: Vital Signs Temp Pulse Resp BP Pulse Ox 98.5 F 75 16 103/39 L 100 01/07/21 14:03 01/07/21 14:03 01/07/21 14:03 01/07/21 08:49 01/07/21 14:03 Oxygen Flow Rate (L/min) [6] 2 Oxygen Flow Rate (L/min) [5] 2 Oxygen Flow Rate (L/min) [4] 2 Oxygen Flow Rate (L/min) [3] 2 Oxygen Flow Rate (L/min) [2] 2 Oxygen Flow Rate (L/min) [1 ( 2 Initial Baseline)] Oxygen Flow Rate (L/min) 2 Oxygen Delivery Method [6] Nasal Cannula Oxygen Delivery Method [5] Nasal Cannula Oxygen Delivery Method [4] Nasal Cannula Oxygen Delivery Method [3] Nasal Cannula Oxygen Delivery Method [2] Nasal Cannula Oxygen Delivery Method [1 ( Nasal Cannula Initial Baseline)] Oxygen Delivery Method Nasal Cannula Weight: 174 lb 15.694 oz Body Mass Index (BMI) 51.2 Intake & Output: Intake and Output for Last 24 Hours 01/05/21 01/06/21 01/07/21 23:59 23:59 23:59 Intake Total 2128.92 / 2128.92 2768.33 / 2768.33 1492.49 / 1492.49 Output Total 1500 / 1500 1125 / 1125 635 / 635 Balance 628.92 / 628.92 1643.33 / 1643.33 857.49 / 857.49 Lab / Micro Data Result Diagrams: 01/07/21 05:45 01/07/21 05:45 Labs: Laboratory Results - last 24 hr 01/07/21 01/07/21 01/07/21 05:45 05:45 05:45 WBC 8.0 RBC 2.90 L Hgb 8.3 L Hct 26.4 L MCV 91.0 MCH 28.6 MCHC 31.4 L RDW Std Deviation 55.8 H RDW Coeff of Laxmi 17.2 H Plt Count 144 L MPV 8.8 Immature Gran % (Auto) 2.000 H Neut % (Auto) 78.6 H Lymph % (Auto) 7.7 L [place] % (Auto) 9.7 Eos % (Auto) 1.5 Baso % (Auto) 0.5 Absolute Neuts (auto) 6.3 Absolute Lymphs (auto) 0.62 L Nucleated RBC % 0 Sodium 138 Potassium 4.4 Chloride 107 Carbon Dioxide 26.0 Anion Gap 5 BUN 36 H Creatinine 1.65 H Estim Creat Clear Calc 31.80 Est GFR (MDRD) Af Amer 38 L Est GFR (MDRD) Non-Af 32 L BUN/Creatinine Ratio 21.8 H Glucose 96 Calcium 8.8 Total Bilirubin 0.50 Direct Bilirubin 0.18 GGT 416 H AST 38 H ALT 119 H Alkaline Phosphatase 302 H Total Protein 4.6 L Albumin 1.8 L Globulin 2.8 Vitamin B12 373 Micro: Microbiology 01/05/21 Unknown Tissue - Abdominal Gram Stain - Final 01/05/21 Unknown Tissue - Abdominal Wound Culture - Preliminary Gram Positive Cocci Yeast Like Organism 01/05/21 Unknown Tissue - Abdominal Anaerobic Culture - Preliminary No anaerobic bacteria isolated. 01/05/21 14:07 Wound Drainage - Abdominal Gram Stain - Final 01/05/21 14:07 Wound Drainage - Abdominal Wound Culture - Preliminary Staphylococcus aureus Yeast Like Organism 01/05/21 14:07 Wound Drainage - Abdominal Anaerobic Culture - Preliminary Checking for anaerobes, further studies to follow. 01/01/21 13:30 Wound Abcess - Abdominal Gram Stain - Final 01/01/21 13:30 Wound Abcess - Abdominal Wound Culture - Final Klebsiella pneumoniae sp pneum Staphylococcus aureus 01/01/21 13:30 Wound Abcess - Abdominal Anaerobic Culture - Final Bacteroides ovatus 12/31/20 11:25 Blood Culture (Wb) - Right Forearm Blood Culture - Final No growth in 5 days. 12/31/20 10:45 Blood Culture (Wb) - Anticubital Left Blood Culture - Final No growth in 5 days. 12/31/20 11:25 Urine, Catheterized Urine Culture - Final Culture exhibits no growth. 12/31/20 13:25 Interface Orders SARS-CoV-2 Antigen (Rapid) - Final Physical Exam Narrative General: Awake, disoriented to time, and place. Confused HEENT: Atraumatic, PERRLA, EOMI, Normocephalic Oral: No Gingival or Mucosal Lesions/ Ulcerations Neck: Supple, No JVD, Negative Carotid Bruits Lungs: Air entry diminished in bilateral lung bases, more on the right. No crepitation/rhonchi Cardiovascular: Regular rate, Regular Rhythm, Normal S1, Normal S2, No murmurs Abdomen: Soft, TAYLOR drain with small serosanguineous collection. Dressing is dry. Bowel sounds present over right and left upper quadrant. : No renal angle tenderness. No suprapubic tenderness. Extremities: No edema, Capillary Refill Less than 3 Seconds Skin: Induration and roughness around umbilical region Musculoskeletal: Deformity of the small joints in fingers and wrist, arthritis. ROM restricted. Neurological: Cranial nerves II-XII grossly intact, Deep Tendon Reflexes 2+/4 and Symmetrical, Neuro grossly intact Psych/Mental Status: Flat affect Assessment & Plan Assessment/Plan (1) Abdominal wall abscess: (2) Cellulitis, umbilical: PLAN: 1. Abdominal wall abscess with surrounding cellulitis around umbilical region: The patient is admitted MedSur floor. Seen by surgeon's improving on IV antibiotics, vancomycin and Zosyn. No fluctuance but induration and tenderness around umbilical region. Surgeon made her n.p.o. after midnight today in case if she needs surgery tomorrow. Abscess culture shows Klebsiella pneumoniae, 2+ and rare staph aureus. Klebsiella sensitive to Cipro and gentamicin. ESBL negative. Blood and urine cultures are negative. 01/05: Discussed with the surgeon and ID. Antibiotic changed to Levaquin and Flagyl and Zosyn discontinued. Vancomycin continued. Patient is being taken to or for local wound debridement/fistula resection 01/06: Aspiration culture shows MSSA, Klebsiella and Bacteroides. Mild improvement in liver chemistry. Portable chest x-ray reviewed shows normal mediastinum and georgi but underlying atelectasis. Moderate-sized hiatus hernia. Discussed with the nursing staff for aggressive incentive spirometry, bronchodilator as needed for wheezing and shortness of breath and PEP. ID consult reviewed. Discussed with the surgeon. 01/07: Preliminary tissue culture of 01/05 growing staph and yeast like organism. On antibiotics as mentioned above. No fever. Encourage incentive spirometry and Pep. 2. Bilateral groin Roseanna intertrigo: On nystatin. Purwick in place 3. CKD stage IV: Baseline creatinine runs around 1.8-1.9. BUN/creatinine is stable currently 1.58 Fluid retention with increasing creatinine. Nephrology consulted for increasing creatinine, 1.65 and opinion regarding diuretic 4. Recent left posterior tibial vein DVT in August 2020. On Lovenox in place of Eliquis in case if he needs surgery. 5. 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 6. Hypertension: Blood pressure is elevated. Amlodipine dose increased to 10 mg daily. 7. Elevated transaminases/alkaline phosphatase probably medication/DILI or infection. Monitor liver function. Zosyn discontinued. Other chronic comorbidities include hypertension, restless leg syndrome, mild pain, depression, peripheral neuropathy, anxiety and depression and obesity grade 3. Patient also has constipation started on MiraLAX and senna S. Charges/Coding Visit Charges Inpatient E&M: 25175 Subs Hosp L2
[2021-01-07] MEDS: Vancomycin IV 1,000 MG/200 ML BAG 200 MG IV (19:34)
[2021-01-07] MEDS: Gabapentin 300 MG Capsule PO (22:45)
[2021-01-07] MEDS: Pramipexole Di-HCl 0.25 MG Tablet PO (22:45)
[2021-01-08] VITALS (9 sets, daily range): BP systolic 117–132; BP diastolic 51–83; PULSE 65–80; RESP 16–20; TEMP 36.4–36.9; O2SAT 92–98
[2021-01-08] MEDS: metroNIDAZOLE 500 MG Tablet PO ×3 (05:45→23:00)
[2021-01-08] MEDS: Menthol/Lanolin/Calamine/Znox 113 GM Tube 1 APPLIC TOPICAL ×3 (05:47→23:02)
[2021-01-08] MEDS: Nystatin Powder 15gm Bottle 1 APPLIC TOPICAL ×3 (05:47→23:01)
[2021-01-08] MEDS: Dext 5%-0.45% NS 1,000 ML 50 ML IV (06:14)
[2021-01-08 06:24] LABS: Absolute Lymphocyte Count 0.54 X10^3/uL (0.83-4.51); Absolute Neutrophil Count 4.3 X10^3/uL (2.0-7.7); Basophil# 0.03 X10^3/uL; Basophil% 0.5 % (0-1); Eosinophil# 0.13 X10^3/uL; Eosinophils% 2.3 % (0-5); Hematocrit 26.7 % (37-47); Hemoglobin 8.2 g/dL (12.0-15.0); Lymphocyte # 0.54 X10^3/ul (0.83-4.51); Lymphocyte % 9.6 % (19-41); Mean Corp Hgb Conc 30.7 g/dL (32-36); Mean Corpuscular Volume 91.1 fL (81-99); Mean Platelet Vol. 9.3 fl (6.2-12.0); Monocyte# 0.53 X10^3/uL; Monocyte% 9.5 % (0-10); NRBC Flagged by Analyzer 0 % (0-5); Neutrophil # 4.26 X10^3/uL (2.7-7.7); Neutrophil % 76.1 % (47-70); POSITIVE DIFFERENTIAL YES; Platelet Count 169 K/mm3 (150-450); RBC Distribution Width CV 17.3 % (11.6-14.6); RBC Distribution Width SD 55.9 fl (35.1-43.9); Red Blood Count 2.93 M/mm3 (4.2-5.4); White Blood Count 5.6 K/mm3 (4.4-11.0)
[2021-01-08 06:29] LABS: Differential Indicated SCAN CRITERIA MET
[2021-01-08 06:49] LABS: AST(SGOT) 30 U/L (15-37); Alanine Aminotransfer ALT/SGPT 87 U/L (13-56); Albumin, Serum 1.9 g/dL (3.2-5.0); Alkaline Phosphatase 252 U/L (45-117); Anion Gap 4 (5-15); BUN 33 mg/dL (7-18); BUN/Creat Ratio 19.9 RATIO (10-20); Bilirubin, Direct 0.15 mg/dL (0.00-0.30); Calcium,Total 8.9 mg/dL (8.5-10.1); Chloride 110 mmol/L (98-107); Creatinine, Serum 1.66 mg/dL (0.55-1.02); EST Glomerular Filtration Rate 31 mL/min (>60); Est Glom Filt Rate - Afr Amer 38 mL/min (>60); Estimated Creatinine Clearance 31.61 ml/min; Globulin 2.9 g/dL (2.2-4.2); Glucose 99 mg/dL (74-106); Protein, Total 4.8 g/dL (6.4-8.2); Sodium Level 140 mmol/L (136-145)
[2021-01-08] MEDS: Ipratropium/Albuterol Sulfate 3 ML AMPUL.NEB INHALATION ×3 (06:54→18:52)
[2021-01-08] MEDS: Gabapentin 100 MG Capsule PO ×2 (07:40→17:28)
[2021-01-08] MEDS: Multivitamins,Ther W-Minerals Tablet 1 TABLET PO (07:41)
[2021-01-08] MEDS: Ferrous Sulfate 325 MG Tablet PO (07:41)
--- NOTE | 2021-01-08 07:45 | PCM.PN.SRG ---
Subjective Subjective Patient denies abdominal pain, TAYLOR serosanguineous Objective Data Objective Data Vital Signs: Vital Signs Temp Pulse Resp BP Pulse Ox 97.5 F L 70 18 128/65 H 96 01/08/21 07:43 01/08/21 07:43 01/08/21 07:43 01/08/21 07:43 01/08/21 07:43 Oxygen Flow Rate (L/min) [6] 2 Oxygen Flow Rate (L/min) [5] 2 Oxygen Flow Rate (L/min) [4] 2 Oxygen Flow Rate (L/min) [3] 2 Oxygen Flow Rate (L/min) [2] 2 Oxygen Flow Rate (L/min) [1 ( 2 Initial Baseline)] Oxygen Flow Rate (L/min) 2 Oxygen Delivery Method [6] Nasal Cannula Oxygen Delivery Method [5] Nasal Cannula Oxygen Delivery Method [4] Nasal Cannula Oxygen Delivery Method [3] Nasal Cannula Oxygen Delivery Method [2] Nasal Cannula Oxygen Delivery Method [1 ( Nasal Cannula Initial Baseline)] Oxygen Delivery Method Room Air Weight: 174 lb 15.694 oz Body Mass Index (BMI) 51.2 Intake & Output: Intake and Output for Last 24 Hours 01/06/21 01/07/21 01/08/21 23:59 23:59 23:59 Intake Total 2768.33 / 2768.33 2145.82 / 2145.82 533.33 / 533.33 Output Total 1125 / 1125 2040 / 2040 1120 / 1120 Balance 1643.33 / 1643.33 105.82 / 105.82 -586.67 / -586.67 Lab / Micro Data Result Diagrams: 01/08/21 06:00 01/08/21 06:00 Labs: Laboratory Results - last 24 hr 01/07/21 01/08/21 01/08/21 05:45 06:00 06:00 WBC 5.6 RBC 2.93 L Hgb 8.2 L Hct 26.7 L MCV 91.1 MCH 28.0 MCHC 30.7 L RDW Std Deviation 55.9 H RDW Coeff of Laxmi 17.3 H Plt Count 169 MPV 9.3 Immature Gran % (Auto) 2.000 H Neut % (Auto) 76.1 H Lymph % (Auto) 9.6 L [place] % (Auto) 9.5 Eos % (Auto) 2.3 Baso % (Auto) 0.5 Absolute Neuts (auto) 4.3 Absolute Lymphs (auto) 0.54 L Nucleated RBC % 0 Sodium 140 Potassium 4.0 Chloride 110 H Carbon Dioxide 26.0 Anion Gap 4 L BUN 33 H Creatinine 1.66 H Estim Creat Clear Calc 31.61 Est GFR (MDRD) Af Amer 38 L Est GFR (MDRD) Non-Af 31 L BUN/Creatinine Ratio 19.9 Glucose 99 Calcium 8.9 Total Bilirubin 0.50 Direct Bilirubin 0.15 AST 30 ALT 87 H Alkaline Phosphatase 252 H Total Protein 4.8 L Albumin 1.9 L Globulin 2.9 Vitamin B12 373 Micro: Microbiology 01/05/21 Unknown Tissue - Abdominal Gram Stain - Final 01/05/21 Unknown Tissue - Abdominal Wound Culture - Preliminary Gram Positive Cocci Yeast Like Organism 01/05/21 Unknown Tissue - Abdominal Anaerobic Culture - Preliminary No anaerobic bacteria isolated. 01/05/21 14:07 Wound Drainage - Abdominal Gram Stain - Final 01/05/21 14:07 Wound Drainage - Abdominal Wound Culture - Preliminary Staphylococcus aureus Yeast Like Organism 01/05/21 14:07 Wound Drainage - Abdominal Anaerobic Culture - Preliminary Checking for anaerobes, further studies to follow. 01/01/21 13:30 Wound Abcess - Abdominal Gram Stain - Final 01/01/21 13:30 Wound Abcess - Abdominal Wound Culture - Final Klebsiella pneumoniae sp pneum Staphylococcus aureus 01/01/21 13:30 Wound Abcess - Abdominal Anaerobic Culture - Final Bacteroides ovatus 12/31/20 11:25 Blood Culture (Wb) - Right Forearm Blood Culture - Final No growth in 5 days. 12/31/20 10:45 Blood Culture (Wb) - Anticubital Left Blood Culture - Final No growth in 5 days. 12/31/20 11:25 Urine, Catheterized Urine Culture - Final Culture exhibits no growth. 12/31/20 13:25 Interface Orders SARS-CoV-2 Antigen (Rapid) - Final Physical Exam Narrative Abdomen: Soft, mild tenderness at incision, incision dressed and packed in retention sutures in place. TAYLOR serosanguineous Resp normal respiratory effort Cardio regular rate Assessment & Plan Assessment/Plan (1) S/P small bowel resection: (2) Small bowel perforation: PLAN: Patient's wound is being packed with wet-to-dry's. Patient remain n.p.o. until starts having bowel function. Patient hemoglobin is down to 8.2 continue to monitor. Patient's drain is serosanguineous but mostly serous Prema Saucedo M.D. Pager: [phone] [facility] [address] [place] [address], [address] [place] [address] Office: [phone]
--- NOTE | 2021-01-08 09:55 | PCM.CONS.R ---
Assessment & Plan Assessment/Plan (1) CKD stage G3b/A1, GFR 30-44 and albumin creatinine ratio <30 mg/g: (2) Hypertension: (3) Edema: (4) Abdominal wall abscess: PLAN: Patient has CKD. Baseline Cr ~1.4-1.5 mg/dl. Cr is close to baseline Will check UA Please keep Vancomycin trough 15-2-. Avoid Bactrim Avoid IV contrst Agree with IVF as long she is NPO No need for ADMINISTRATIVE SERVICES OFFICER Check RFP in am BP is well controlled. Only on Norvasc and atenolol No need for diuretic Surgery is following D/W Dr. North Thank you Will continue to follow Call if any question Herman Osorio MD HPI Consult Data Date of Consult: 01/08/21 HPI Narrative HPI Narrative: LOLLY HUSAIN, is a 85 F PMH as below. Patient presented with Right side abdominal pain 1 week after a fall. CT showed abdominal wall abscess.surgery was consulted . Patient was found also sot have umbilical fistula which was removed along with draining the abscess on 01/05. Patient is being treated with IV Abx. Renal team is consulted for CKD. Baseline CR ~ 1.4-1.5 mg/dl Cr is 1.6 mg/dl Patient is off home lasix BP is well controlled with Norvasc and atenolol Patient is NPO. On gentle hydration No diarrhea. No nausea No vomiting. No SOB PFSH Medical History (Updated 01/08/21 @ 10:[address] Herman Osorio MD) Abnormal bruising Anxiety Chronic neck and back pain Difficulty balancing when standing DVT (deep venous thrombosis) Hearing loss, left Hearing loss, right Incontinence Knee pain Migraines Non-smoker On home oxygen therapy Polyosteoarthritis Polyosteoarthritis Severe headache Shoulder pain SOB (shortness of breath) Home Medications diphenoxylate-atropine [Lomotil] 2.5 mg PO TID PRN PRN 02/16/14 [History Last Taken Unknown] atenolol 25 mg PO BID 06/09/15 [History Last Taken 12/31/20] sumatriptan succinate [Imitrex] 100 mg PO .X1 PRN MDD MIGRAINE 06/09/15 [History Last Taken Unknown] multivitamin with folic acid [Thera] 1 tab PO DAILY 01/29/18 [History Last Taken 2 Weeks Ago ~12/17/20] furosemide 20 mg PO BID 07/21/18 [History Last Taken 12/31/20] ferrous sulfate 325 mg PO DAILY 10/19/19 [History Last Taken 12/31/20] solifenacin 10 mg PO DAILY 10/19/19 [History Last Taken 12/31/20] albuterol sulfate 1 - 2 puff INHALATION Q4H PRN PRN #1 inhaler 10/23/19 [Rx Last Taken Unknown] nystatin 1 applic TOPICAL TID #1 bottle 10/23/19 [Rx Last Taken 12/30/20] apixaban 5 mg PO BID 10/20/20 [History Last Taken 12/31/20] cephalexin 500 mg capsule 500 mg PO BID 12/31/20 [History Last Taken 12/31/20] duloxetine 60 mg PO BID 12/31/20 [History Last Taken 12/31/20] gabapentin 100 mg PO BID 12/31/20 [History Last Taken 12/31/20] gabapentin 300 mg capsule 300 mg PO QHS cap 12/31/20 [History Last Taken 12/30/20] hydroxychloroquine 200 mg tablet 200 mg PO BID tab 12/31/20 [History Last Taken 12/31/20] prednisone 10 mg tablet 10 mg PO DAILY PRN 12/31/20 [History Last Taken Unknown] ropinirole 0.5 mg tablet 0.5 mg PO QHS tab 12/31/20 [History Last Taken 12/30/20] Allergy/AdvReac Type Severity Reaction Status Date / Time No Known Allergies Allergy Verified 12/31/20 10:39 Family History Mother No significant active problems Other Headache Surgical History (Updated 01/06/21 @ 12:[address] Prema Saucedo MD) History of appendectomy History of back surgery History of cholecystectomy History of foot surgery History of hernia surgery History of surgery on wrist Small bowel perforation Social History household members: family housing: house Smoking Status: Never smoker alcohol intake: never Physical Exam Const alert and oriented x3 General Appearance: cooperative Orientation / Consciousness: awake HEENT Head and Scalp: normal to inspection and normocephalic Face and Sinus: normal facial exam Eyes PERRL and conjunctivae normal General Eye: normal appearance of both eyes Neck full ROM Resp normal respiratory effort and normal air movement Auscultation: clear to auscultation bilaterally Cardio regular rate, regular rhythm and S1 normal heart sound GI Palpation: soft and tender periumbilical Bladder / Kidney Exam: catheter in place Back/Spine no CVA tenderness Extremity normal to inspection and full ROM Skin no rashes or lesions noted Neuro oriented x3 and CN's II-XII intact bilaterally Psych mental status grossly normal Lab / Micro Data Result Diagrams: 01/08/21 06:00 01/08/21 06:00 Labs: Laboratory Results - last 24 hr 01/08/21 01/08/21 06:00 06:00 WBC 5.6 RBC 2.93 L Hgb 8.2 L Hct 26.7 L MCV 91.1 MCH 28.0 MCHC 30.7 L RDW Std Deviation 55.9 H RDW Coeff of Laxmi 17.3 H Plt Count 169 MPV 9.3 Immature Gran % (Auto) 2.000 H Neut % (Auto) 76.1 H Lymph % (Auto) 9.6 L [place] % (Auto) 9.5 Eos % (Auto) 2.3 Baso % (Auto) 0.5 Absolute Neuts (auto) 4.3 Absolute Lymphs (auto) 0.54 L Nucleated RBC % 0 Sodium 140 Potassium 4.0 Chloride 110 H Carbon Dioxide 26.0 Anion Gap 4 L BUN 33 H Creatinine 1.66 H Estim Creat Clear Calc 31.61 Est GFR (MDRD) Af Amer 38 L Est GFR (MDRD) Non-Af 31 L BUN/Creatinine Ratio 19.9 Glucose 99 Calcium 8.9 Total Bilirubin 0.50 Direct Bilirubin 0.15 AST 30 ALT 87 H Alkaline Phosphatase 252 H Total Protein 4.8 L Albumin 1.9 L Globulin 2.9 Micro: Microbiology 01/05/21 14:07 Gram Stain - Final Wound Drainage - Abdominal Wound Culture - Preliminary Staphylococcus aureus Yeast Like Organism Anaerobic Culture - Preliminary Checking for anaerobes, further studies to follow. 01/05/21 Unknown Gram Stain - Final Tissue - Abdominal Wound Culture - Preliminary Gram Positive Cocci Yeast Like Organism Anaerobic Culture - Preliminary No anaerobic bacteria isolated.
--- NOTE | 2021-01-08 10:29 | CASEMGMT ---
Social Work Pt is not medically ready for discharge at this time. AIDA spoke with Danielle in TCU and informed. Pt can be admitted at any time to TCU. AIDA spoke with pt and dgt Candi and informed of above. Plan: TCU, when medically ready. MABEL Worthy
[2021-01-08] MEDS: DULoxetine Hcl 60 MG Capsule PO ×2 (11:04→23:00)
[2021-01-08] MEDS: amLODIPine 10 MG Tablet PO (11:05)
[2021-01-08] MEDS: Polyethylene Glycol 3350 17 GM PACKET PO (11:05)
[2021-01-08] MEDS: Tolterodine Tartrate 4 MG CAP.SA PO (11:05)
[2021-01-08] MEDS: Atenolol 25 MG Tablet PO ×2 (11:06→23:02)
[2021-01-08] MEDS: Senna/Docusate Sodium 1 Tablet 2 TABLET PO ×2 (11:06→23:01)
[2021-01-08] MEDS: Cyanocobalamin (B12) 1,000 MCG/ML Vial 1000 MCG SC (12:40)
--- NOTE | 2021-01-08 13:39 | PCM.PN.ID ---
Physical Exam Narrative Feeling better, having some sips, no fever Const alert General Appearance: cooperative Resp clear to auscultation bilaterally Cardio regular rate and regular rhythm GI normal to inspection, nondistended, normoactive bowel sounds Skin no rashes or lesions noted ID ID: Route of nutrition/ use of supplements: [] Nutritional Intake: [] IV Site: [] Matos Catheter: [] Assessment & Plan Assessment/Plan (1) S/P small bowel resection: (2) Transaminitis: (3) CKD (chronic kidney disease), stage IV: (4) Rheumatoid arthritis: QUALIFIERS: Rheumatoid arthritis location: unspecified site Rheumatoid factor presence: unspecified presence Qualified Code(s): M06.9 - Rheumatoid arthritis, unspecified (5) Abdominal wall abscess: PLAN: Taken to OR 01/05/[address] Saucedo for fistula resection and I&D. On vanc/levaquin/flagyl. Surg cx with GPC, some yeast. Aspiration cx with mssa, klebs, bacteroides. Will stop vanc today. No growth of MRSA at this point. Neph following. Will follow
--- NOTE | 2021-01-08 13:51 | PN.HOSP_ITS ---
Subjective Subjective Patient is more awake and alert. Patient is n.p.o. Drain mainly serous fluid. No chest pain. Shortness of breath has improved. No wheezing Has not flatus or bowel movement. Hemoglobin 8.2. Creatinine is stable. Objective Data Objective Data Vital Signs: Vital Signs Temp Pulse Resp BP Pulse Ox 98.0 F 70 16 132/51 H 97 01/08/21 12:34 01/08/21 12:54 01/08/21 12:54 01/08/21 12:34 01/08/21 12:34 Oxygen Flow Rate (L/min) [6] 2 Oxygen Flow Rate (L/min) [5] 2 Oxygen Flow Rate (L/min) [4] 2 Oxygen Flow Rate (L/min) [3] 2 Oxygen Flow Rate (L/min) [2] 2 Oxygen Flow Rate (L/min) [1 ( 2 Initial Baseline)] Oxygen Flow Rate (L/min) 2 Oxygen Delivery Method [6] Nasal Cannula Oxygen Delivery Method [5] Nasal Cannula Oxygen Delivery Method [4] Nasal Cannula Oxygen Delivery Method [3] Nasal Cannula Oxygen Delivery Method [2] Nasal Cannula Oxygen Delivery Method [1 ( Nasal Cannula Initial Baseline)] Oxygen Delivery Method Room Air Weight: 174 lb 15.694 oz Body Mass Index (BMI) 51.2 Intake & Output: Intake and Output for Last 24 Hours 01/06/21 01/07/21 01/08/21 23:59 23:59 23:59 Intake Total 2768.33 / 2768.33 2145.82 / 2145.82 905.33 / 905.33 Output Total 1125 / 1125 2040 / 2040 1630 / 1630 Balance 1643.33 / 1643.33 105.82 / 105.82 -724.67 / -724.67 Lab / Micro Data Result Diagrams: 01/08/21 06:00 01/08/21 06:00 Labs: Laboratory Results - last 24 hr 01/08/21 01/08/21 06:00 06:00 WBC 5.6 RBC 2.93 L Hgb 8.2 L Hct 26.7 L MCV 91.1 MCH 28.0 MCHC 30.7 L RDW Std Deviation 55.9 H RDW Coeff of Laxmi 17.3 H Plt Count 169 MPV 9.3 Immature Gran % (Auto) 2.000 H Neut % (Auto) 76.1 H Lymph % (Auto) 9.6 L [place] % (Auto) 9.5 Eos % (Auto) 2.3 Baso % (Auto) 0.5 Absolute Neuts (auto) 4.3 Absolute Lymphs (auto) 0.54 L Nucleated RBC % 0 Sodium 140 Potassium 4.0 Chloride 110 H Carbon Dioxide 26.0 Anion Gap 4 L BUN 33 H Creatinine 1.66 H Estim Creat Clear Calc 31.61 Est GFR (MDRD) Af Amer 38 L Est GFR (MDRD) Non-Af 31 L BUN/Creatinine Ratio 19.9 Glucose 99 Calcium 8.9 Total Bilirubin 0.50 Direct Bilirubin 0.15 AST 30 ALT 87 H Alkaline Phosphatase 252 H Total Protein 4.8 L Albumin 1.9 L Globulin 2.9 Micro: Microbiology 01/05/21 14:07 Wound Drainage - Abdominal Gram Stain - Final 01/05/21 14:07 Wound Drainage - Abdominal Wound Culture - Preliminary Staphylococcus aureus Yeast Like Organism 01/05/21 14:07 Wound Drainage - Abdominal Anaerobic Culture - Final No anaerobic bacteria isolated. 01/05/21 Unknown Tissue - Abdominal Gram Stain - Final 01/05/21 Unknown Tissue - Abdominal Wound Culture - Preliminary Gram Positive Cocci Yeast Like Organism 01/05/21 Unknown Tissue - Abdominal Anaerobic Culture - Preliminary No anaerobic bacteria isolated. 01/01/21 13:30 Wound Abcess - Abdominal Gram Stain - Final 01/01/21 13:30 Wound Abcess - Abdominal Wound Culture - Final Klebsiella pneumoniae sp pneum Staphylococcus aureus 01/01/21 13:30 Wound Abcess - Abdominal Anaerobic Culture - Final Bacteroides ovatus 12/31/20 11:25 Blood Culture (Wb) - Right Forearm Blood Culture - Final No growth in 5 days. 12/31/20 10:45 Blood Culture (Wb) - Anticubital Left Blood Culture - Final No growth in 5 days. 12/31/20 11:25 Urine, Catheterized Urine Culture - Final Culture exhibits no growth. 12/31/20 13:25 Interface Orders SARS-CoV-2 Antigen (Rapid) - Final Physical Exam Narrative General: Awake, oriented to time, and place. HEENT: Atraumatic, PERRLA, EOMI, Normocephalic Oral: No Gingival or Mucosal Lesions/ Ulcerations Neck: Supple, No JVD, Negative Carotid Bruits Lungs: Air entry diminished in bilateral lung bases. No crepitations/rhonchi. Cardiovascular: Regular rate, Regular Rhythm, Normal S1, Normal S2, No murmurs Abdomen: Soft, TAYLOR drain with small serosanguineous collection. Dressing is dry. Bowel sounds present. : No renal angle tenderness. No suprapubic tenderness. Extremities: No edema, Capillary Refill Less than 3 Seconds. Mild upper extremity edema Skin: No rash. Surgical wound in the abdomen. Musculoskeletal: Deformity of the small joints in fingers and wrist, arthritis. ROM restricted. Neurological: Cranial nerves II-XII grossly intact, Deep Tendon Reflexes 2+/4 and Symmetrical, Neuro grossly intact Psych/Mental Status: Flat affect Assessment & Plan Assessment/Plan (1) Abdominal wall abscess: (2) Cellulitis, umbilical: PLAN: 1. Abdominal wall abscess with surrounding cellulitis around umbilical region: The patient is admitted Medr floor. Seen by surgeon's improving on IV antibiotics, vancomycin and Zosyn. No fluctuance but induration and tenderness around umbilical region. Abscess culture shows Klebsiella pneumoniae, 2+ and rare staph aureus. Klebsiella sensitive to Cipro and gentamicin. ESBL negative. Blood and urine cultures are negative. 01/05: Discussed with the surgeon and ID. Antibiotic changed to Levaquin and Flagyl and Zosyn discontinued. Vancomycin continued. Patient had incision and debridement of abdominal abscess,?small bowel resection and extensive lysis of adhesions. 01/06: Aspiration culture shows MSSA, Klebsiella and Bacteroides. Mild improveme nt in liver chemistry. Portable chest x-ray reviewed shows normal mediastinum and georgi but underlying atelectasis. Moderate-sized hiatus hernia. Discussed with the nursing staff for aggressive incentive spirometry, bronchodilator as needed for wheezing and shortness of breath and PEP. ID consult reviewed. Discussed with the surgeon. 01/07: Preliminary tissue culture of 01/05 growing staph and yeast like organism. On antibiotics as mentioned above. No fever. Encourage incentive spirometry and Pep. 01/08: Preliminary wound culture shows gram-positive cocci with. Yeastlike organisms. 01/05 culture shows MSSA rare growth. 2. Bilateral groin Roseanna intertrigo: On nystatin. Purwick in place 3. CKD stage IV: Baseline creatinine runs around 1.8-1.9. BUN/creatinine is stable currently 1.58 Fluid retention with increasing creatinine. Nephrology consulted for increasing creatinine, 1.65 and opinion regarding diuretic 01/08: BUN/creatinine 33/1.66. Not much significant difference last 2 days. Discussed with the electrical prospecting engineer. No need for diuretic. Continue IV fluid for nutritional support. Avoid nephrotoxic or IV contrast. 4. Recent left posterior tibial vein DVT in August 2020. On Lovenox in place of Eliquis in case if he needs surgery. 5. 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 01/14: Hemoglobin 8.2, last 2 days. Monitor hemoglobin if less than 7 g transfused. 6. Hypertension: Blood pressure is elevated. Amlodipine dose increased to 10 mg daily. 7. Elevated transaminases/alkaline phosphatase probably medication/DILI or infe ction. Monitor liver function. Zosyn discontinued. Other chronic comorbidities include hypertension, restless leg syndrome, mild pain, depression, peripheral neuropathy, anxiety and depression and obesity grade 3. Patient also has constipation started on MiraLAX and senna S. Charges/Coding Visit Charges Inpatient E&M: 28895 Subs Hosp L2
[2021-01-08] MEDS: Pramipexole Di-HCl 0.25 MG Tablet PO (23:00)
[2021-01-08] MEDS: Gabapentin 300 MG Capsule PO (23:01)
[2021-01-09] MEDS: Dext 5%-0.45% NS 1,000 ML 50 ML IV (01:50)
[2021-01-09 02:39] VITALS: BP 136/49; PULSE 71; RESP 18; TEMP 36.3; O2SAT 96
[2021-01-09] MEDS: Nystatin Powder 15gm Bottle 1 APPLIC TOPICAL (06:02)
[2021-01-09] MEDS: Menthol/Lanolin/Calamine/Znox 113 GM Tube 1 APPLIC TOPICAL (06:02)
[2021-01-09] MEDS: metroNIDAZOLE 500 MG Tablet PO (06:03)
[2021-01-09] MEDS: 0.9% Saline Lock 10 ML Syringe IV ×2 (06:03→11:01)
[2021-01-09] MEDS: Ipratropium/Albuterol Sulfate 3 ML AMPUL.NEB INHALATION (07:20)
[2021-01-09 07:49] VITALS: O2SAT 95
[2021-01-09 07:50] VITALS: PULSE 77; RESP 20
[2021-01-09 07:53] LABS: Absolute Lymphocyte Count 0.64 X10^3/uL (0.83-4.51); Absolute Neutrophil Count 3.7 X10^3/uL (2.0-7.7); Basophil# 0.05 X10^3/uL; Basophil% 0.9 % (0-1); Eosinophils% 3.8 % (0-5); Hematocrit 28.5 % (37-47); Hemoglobin 8.8 g/dL (12.0-15.0); Lymphocyte # 0.64 X10^3/ul (0.83-4.51); Lymphocyte % 12.1 % (19-41); Mean Corp Hgb Conc 30.9 g/dL (32-36); Mean Corpuscular Hgb 28.3 pg (27.0-32.0); Mean Corpuscular Volume 91.6 fL (81-99); Mean Platelet Vol. 9.5 fl (6.2-12.0); Monocyte# 0.54 X10^3/uL; Monocyte% 10.2 % (0-10); NRBC Flagged by Analyzer 0 % (0-5); Neutrophil # 3.72 X10^3/uL (2.7-7.7); Neutrophil % 70.4 % (47-70); Platelet Count 193 K/mm3 (150-450); RBC Distribution Width CV 17.7 % (11.6-14.6); RBC Distribution Width SD 58.1 fl (35.1-43.9); Red Blood Count 3.11 M/mm3 (4.2-5.4); White Blood Count 5.3 K/mm3 (4.4-11.0)
[2021-01-09 08:18] LABS: AST(SGOT) 38 U/L (15-37); Alanine Aminotransfer ALT/SGPT 73 U/L (13-56); Albumin, Serum 1.9 g/dL (3.2-5.0); Alkaline Phosphatase 225 U/L (45-117); Anion Gap 5 (5-15); BUN 27 mg/dL (7-18); BUN/Creat Ratio 16.5 RATIO (10-20); Bilirubin, Direct 0.09 mg/dL (0.00-0.30); Calcium,Total 8.7 mg/dL (8.5-10.1); Chloride 112 mmol/L (98-107); Creatinine, Serum 1.64 mg/dL (0.55-1.02); EST Glomerular Filtration Rate 32 mL/min (>60); Est Glom Filt Rate - Afr Amer 38 mL/min (>60); Glucose 105 mg/dL (74-106); Magnesium 2.4 mg/dL (1.6-2.6); Potassium 4.5 mmol/L (3.5-5.1); Protein, Total 4.9 g/dL (6.4-8.2); Sodium Level 142 mmol/L (136-145)
[2021-01-09 08:37] LABS: Phosphorus 2.7 mg/dL (2.5-4.9)
--- NOTE | 2021-01-09 09:04 | PN.SURG_ITS ---
Subjective Subjective Patient had flatus and bowel movement, tolerating diet denies abdominal pain. Dressing being changed wet-to-dry's Objective Data Objective Data Vital Signs: Vital Signs Temp Pulse Resp BP Pulse Ox 97.4 F L 77 20 H 136/49 H 95 01/09/21 02:39 01/09/21 07:50 01/09/21 07:50 01/09/21 02:39 01/09/21 07:49 Oxygen Flow Rate (L/min) [6] 2 Oxygen Flow Rate (L/min) [5] 2 Oxygen Flow Rate (L/min) [4] 2 Oxygen Flow Rate (L/min) [3] 2 Oxygen Flow Rate (L/min) [2] 2 Oxygen Flow Rate (L/min) [1 ( 2 Initial Baseline)] Oxygen Flow Rate (L/min) 2 Oxygen Delivery Method [6] Nasal Cannula Oxygen Delivery Method [5] Nasal Cannula Oxygen Delivery Method [4] Nasal Cannula Oxygen Delivery Method [3] Nasal Cannula Oxygen Delivery Method [2] Nasal Cannula Oxygen Delivery Method [1 ( Nasal Cannula Initial Baseline)] Oxygen Delivery Method Room Air Weight: 174 lb 15.694 oz Body Mass Index (BMI) 51.2 Intake & Output: Intake and Output for Last 24 Hours 01/07/21 01/08/21 01/09/21 23:59 23:59 23:59 Intake Total 2145.82 / 2145.82 1367.33 / 1367.33 1180 / 1180 Output Total 2040 / 2040 2190 / 2190 1180 / 1180 Balance 105.82 / 105.82 -822.67 / -822.67 0 / 0 Lab / Micro Data Result Diagrams: 01/09/21 07:21 01/09/21 07:21 Labs: Laboratory Results - last 24 hr 01/09/21 01/09/21 01/09/21 07:21 07:21 07:21 WBC 5.3 RBC 3.11 L Hgb 8.8 L Hct 28.5 L MCV 91.6 MCH 28.3 MCHC 30.9 L RDW Std Deviation 58.1 H RDW Coeff of Laxmi 17.7 H Plt Count 193 MPV 9.5 Immature Gran % (Auto) 2.600 H Neut % (Auto) 70.4 H Lymph % (Auto) 12.1 L [place] % (Auto) 10.2 H Eos % (Auto) 3.8 Baso % (Auto) 0.9 Absolute Neuts (auto) 3.7 Absolute Lymphs (auto) 0.64 L Nucleated RBC % 0 Sodium 142 Potassium 4.5 Chloride 112 H Carbon Dioxide 25.0 Anion Gap 5 BUN 27 H Creatinine 1.64 H Estim Creat Clear Calc 32.00 Est GFR (MDRD) Af Amer 38 L Est GFR (MDRD) Non-Af 32 L BUN/Creatinine Ratio 16.5 Glucose 105 Calcium 8.7 Phosphorus 2.7 Magnesium 2.4 Total Bilirubin 0.30 Direct Bilirubin 0.09 AST 38 H ALT 73 H Alkaline Phosphatase 225 H Total Protein 4.9 L Albumin 1.9 L Globulin 3.0 Micro: Microbiology 01/05/21 Unknown Tissue - Abdominal Gram Stain - Final 01/05/21 Unknown Tissue - Abdominal Wound Culture - Final Gram Positive Cocci Yeast, not Roseanna albicans 01/05/21 Unknown Tissue - Abdominal Anaerobic Culture - Preliminary No anaerobic bacteria isolated. 01/05/21 14:07 Wound Drainage - Abdominal Gram Stain - Final 01/05/21 14:07 Wound Drainage - Abdominal Wound Culture - Final Staphylococcus aureus Yeast, not Roseanna albicans 01/05/21 14:07 Wound Drainage - Abdominal Anaerobic Culture - Final No anaerobic bacteria isolated. 01/01/21 13:30 Wound Abcess - Abdominal Gram Stain - Final 01/01/21 13:30 Wound Abcess - Abdominal Wound Culture - Final Klebsiella pneumoniae sp pneum Staphylococcus aureus 01/01/21 13:30 Wound Abcess - Abdominal Anaerobic Culture - Final Bacteroides ovatus 12/31/20 11:25 Blood Culture (Wb) - Right Forearm Blood Culture - Final No growth in 5 days. 12/31/20 10:45 Blood Culture (Wb) - Anticubital Left Blood Culture - Final No growth in 5 days. 12/31/20 11:25 Urine, Catheterized Urine Culture - Final Culture exhibits no growth. 12/31/20 13:25 Interface Orders SARS-CoV-2 Antigen (Rapid) - Final Physical Exam Narrative Abdomen: Soft, mild tenderness at incision, incision dressed and packed in retention sutures in place. TAYLOR serosanguineous Resp normal respiratory effort Cardio regular rate Assessment & Plan Assessment/Plan (1) S/P small bowel resection: (2) Small bowel perforation: PLAN: Patient's wound is being packed with wet-to-dry's. Patient tolerating diet and having bowel function Hemoglobin up to 8.8. Likely remove the TAYLOR tomorrow and close a little bit of the skin by the umbilicus later today or tomorrow but would leave most of it open for wet-to-dry's. Prema Saucedo M.D. Pager: [phone] [facility] [address] [place] [address], [address] [place] [address] Office: [phone]
--- NOTE | 2021-01-09 09:05 | TREXTCAR_ITS ---
Diet 01/08/21 16:54 Diet: Regular - General Food consistency:: Soft & Bite Sized Dietary Modifications:: Sodium Restricted Type of Dietary Supplement:: Ensure Enlive Is pt able to select menu?: No Diet Comments: 120 ml w/ meals Routine Orders/Code Status Enema Type: Fleetz Enema Frequency: Daily PRN Suppository Type: Dulcolax 10mg Suppository Frequency: Daily PRN Change Alexis Catheter: Per TCU protocol Keep PO Greater than or Equal to (%): 92 Routine Lab Work: - (Repeat CBC, CMP within 3-5 days. Elevated LFTs during admission felt secondary to likely abx therapy.) Code Status: Full Code Wound(s) abd: Wound Type: Open Surgical Wound Dressing Change: Wet to Dry Dressing (Wet to dry per Dr. Saucedo BID) under breast: Wound Type: scattered open areas Dressing Change: Dry Sterile Dressing Suggestions for Active Care Change Position every (hours): 2 Hours to sit in a chair: 4 Times a day to sit in chair: 3 Therapies Weight Bearing: Full weight bearing Physical Therapy: Eval and Treat Occupational Therapy: Eval and Treat Speech Therapy: WOUND RN CONSULTATION ONGOING UPON TCU TRANSITION Problem/Diagnosis (1) Abdominal wall abscess: Status: Acute (2) Cellulitis, umbilical: Status: Acute Allergies/Procedures Done in Hospital Allergies No Known Allergies Allergy (Verified 12/31/20 10:39) Procedures: EKG and - (01/05/21 Incision and debridement of abdominal abscess, removal of mesh, small bowel resection, extensive lysis of adhesions per Dr. Saucedo.) Type of Care/Length of Stay Estimated LOS: Convalescent Care Less Than 30 days Type of Care Needed: Skilled Rehab Potential: Good Prognosis: Good Additional Orders/Day of Discharge Additional Orders: (1) HOB, (2) Monitor for urinary retention and consider purwick if difficulty with urination given abdominal wound with alexis d/c 01/09/21, (3) IS 10x/hr 7a-7p, (4) Turn head and cough while applying abdominal pillow hold. H&P will serve as current which was dated: 12/31/20 Day of Discharge: 01/09/21 Dietary and Speech Recommendations Dietitian Recommendations/Changes: Rec GIANNA to transitional with the goal of regular w/ sodium restriction. Will provide ONS as pt diet advanced for additional aziza/protein. Follow Up Care Please follow up with your Primary Care Physician in: Follow-up PCP within 1-2 days SNF discharge and 3-5 days hospital d/c. Please Follow Up With: Prema Saucedo MD When: Surgery will continue to follow-up in TCU, expect re-evaluation in 1-2 days Please Follow Up With: Olena Washburn, ADMINISTRATIVE SUPPORT ASSOCIATE-C When: Please continue to follow with Palliative upon TCU transition. Please Follow Up With: Herman Osorio MD When: Follow-up with Nephrology in 3-5 days. Evaluated during admit. Discharge Plan Admission Admit Date/Time: 12/31/20 15:50 Primary Reason for Your Visit: Transaminitis, Abdominal abscess possible small bowel fistula Attending Provider: Nela Blanco Primary Care Provider: Candice Amado Consulting Providers: Prema Saucedo ; Hugh Sheth ; Carey Duron ; Francisco Blanton ; Carla Stewart ; Olena Washburn ; Latia Gagnon ; Shannon Murphy NP ; Herman Osorio Instructions Patient Instructions: Abscess Drainage, ED Procedural Sedation, (Adult) Discharge Orders/Prescriptions Prescriptions: New polyethylene glycol 3350 17 gram Powder In Packet 17 g PO DAILY PRN (Reason: constipation) 30 Days Qty: 30 RF: 0 sennosides-docusate sodium [Stool Softener-Stimulant Laxat] 8.6-50 mg Tablet 1 tab-cap PO BID 30 Days Qty: 60 RF: 0 metronidazole 500 mg Tablet 500 mg PO TID 5 Days Qty: 15 RF: 0 Calmoseptine 0.44-20.6 % Ointment 1 applic topical TID Qty: 71 RF: 0 acetaminophen [Tylenol] 325 mg Tablet 650 mg PO Q6H PRN PRN (Reason: Pain Score 1-10/Temp > 100.7 F) 30 Days Qty: 30 RF: 0 ipratropium-albuterol 0.5 mg-3 mg(2.5 mg base)/3 mL Solution For Nebulization 3 ml inhalation Q6HWA.RT 30 Days Qty: 90 RF: 0 amlodipine 10 mg Tablet 10 mg PO DAILY 30 Days Qty: 30 RF: 0 levofloxacin 500 mg Tablet 500 mg PO Q48@0600 Qty: 5 RF: 0 enoxaparin [Lovenox] 80 mg/0.8 mL syringe 80 mg subcut Q12H 30 Days Qty: 48 RF: 0 Continued gabapentin 300 mg capsule 300 mg PO QHS RF: 0 ropinirole 0.5 mg tablet 0.5 mg PO QHS RF: 0 hydroxychloroquine 200 mg tablet 200 mg PO BID RF: 0 sumatriptan succinate [Imitrex] 100 MG tablet 100 mg PO .X1 PRN MDD MIGRAINE RF: 0 atenolol 25 MG tablet 25 mg PO BID RF: 0 multivitamin with folic acid [Thera] 1 TABLET tablet 1 tab PO DAILY RF: 0 ferrous sulfate 325 MG tablet 325 mg PO DAILY RF: 0 solifenacin 10 MG tablet 10 mg PO DAILY RF: 0 albuterol sulfate 1 PUFF inhaler 1 - 2 puff inhalation Q4H PRN PRN (Reason: Sob &/Or Wheezing) Qty: 1 RF: 0 gabapentin 100 mg capsule 100 mg PO BID RF: 0 duloxetine 60 mg capsule,delayed release(DR/EC) 60 mg PO BID RF: 0 Discontinued cephalexin 500 mg capsule 500 mg PO BID RF: 0 prednisone 10 mg tablet 10 mg PO DAILY PRN (Reason: flair) RF: 0 diphenoxylate-atropine [Lomotil] 1 EACH tablet 2.5 mg PO TID PRN PRN (Reason: Diarrhea) RF: 0 furosemide 20 MG tablet 20 mg PO BID RF: 0 apixaban 5 MG tablet 5 mg PO BID RF: 0 No Action nystatin 1 APPLIC bottle 1 applic topical TID Qty: 1 RF: 0 Referrals / Follow Up: Candice Amado DO [Primary Care Provider] - (Follow-up within 1-2 days SNF d/c and within 3-5 days hospital d/c.) Herman Osorio MD [STAFF PHYSICIAN] - (Follow-up within 1 week, evaluated in hospital.) Prema Saucedo MD [STAFF PHYSICIAN] - (Will follow in TCU.) Olena Washburn NP-C [Nurse Practitioner] - (Continue to follow in TCU.) Disposition Disposition (needs filled in before D/C Order can be placed): [facility]
[2021-01-09 09:09] VITALS: BP 131/68; PULSE 75; RESP 20; TEMP 37.1; O2SAT 97
[2021-01-09] MEDS: Atenolol 25 MG Tablet PO (09:22)
[2021-01-09] MEDS: Tolterodine Tartrate 4 MG CAP.SA PO (09:22)
[2021-01-09] MEDS: Ferrous Sulfate 325 MG Tablet PO (09:23)
[2021-01-09] MEDS: Gabapentin 100 MG Capsule PO ×2 (09:23)
[2021-01-09] MEDS: DULoxetine Hcl 60 MG Capsule PO (09:23)
[2021-01-09] MEDS: Multivitamins,Ther W-Minerals Tablet 1 TABLET PO (09:23)
[2021-01-09] MEDS: amLODIPine 10 MG Tablet PO (09:24)
--- NOTE | 2021-01-09 09:40 | PCM.DC.SUM ---
Providers Date of Admission: 12/31/20 Primary Care Physician: Dr. Candice Amado, Consultations 12/31/20 16:52 Consult: General Surgery Routine Consulting Provider: Prema Saucedo Reason for Consult: Abdominal abscess EMERGENT Consult: No MD Notified: Yes Date Notified:: 12/31/20 Time Notified: 15:48 Method of Notification: Verbal 12/31/20 20:09 Consult: Infectious Disease Routine Consulting Provider: Hugh Sheth Reason for Consult: Periumbilical cellulitis, abdominal wall abscess EMERGENT Consult: No MD Notified: Yes Date Notified:: 01/01/21 Time Notified: 03:12 Method of Notification: Answering Service 01/01/21 15:12 Consult: Hospice / Palliative Care Routine Consulting Provider: [facility] Reason for Consult: code status discussion/complicated medically EMERGENT Consult: No MD Notified: Yes Date Notified:: 01/01/21 Time Notified: 15:12 Method of Notification: Verbal 01/05/21 16:58 Consult: Onc/Wound/loop tacker Routine Comment: Currently patient has Betadine soaked Kerlix, Reason for Consult:: wound care 01/07/21 09:16 Consult: Nephrology Routine Consulting Provider: Herman Osorio Reason for Consult: AGUSTIN ON CKD. Had lapratomy with abscess/hernia mess/resection small Int EMERGENT Consult: No MD Notified: Yes Date Notified:: 01/07/21 Time Notified: 10:11 Method of Notification: spoke with office Reason For Visit: ABDOMINAL WALL CELLULITIS Diagnosis Discharge Diagnosis (1) Abdominal wall abscess: Status: Acute Code(s): L02.211 - Cutaneous abscess of abdominal wall (2) Cellulitis, umbilical: Status: Acute Code(s): L03.316 - Cellulitis of umbilicus (3) Small bowel perforation: Status: Inactive Code(s): K63.1 - Perforation of intestine (nontraumatic) (4) S/P small bowel resection: Status: Acute Code(s): Z90.49 - Acquired absence of other specified parts of digestive tract Medications at Discharge Home Medications atenolol 25 mg PO BID 06/09/15 sumatriptan succinate [Imitrex] 100 mg PO .X1 PRN MDD MIGRAINE 06/09/15 multivitamin with folic acid [Thera] 1 tab PO DAILY 01/29/18 ferrous sulfate 325 mg PO DAILY 10/19/19 solifenacin 10 mg PO DAILY 10/19/19 albuterol sulfate 1 - 2 puff INHALATION Q4H PRN PRN #1 inhaler 10/23/19 nystatin 1 applic TOPICAL TID #1 bottle 10/23/19 duloxetine 60 mg PO BID 12/31/20 gabapentin 100 mg PO BID 12/31/20 gabapentin 300 mg capsule 300 mg PO QHS cap 12/31/20 hydroxychloroquine 200 mg tablet 200 mg PO BID tab 12/31/20 ropinirole 0.5 mg tablet 0.5 mg PO QHS tab 12/31/20 acetaminophen [Tylenol] 650 mg PO Q6H PRN PRN 30 Days #30 tab 01/09/21 amlodipine 10 mg PO DAILY 30 Days #30 tab 01/09/21 enoxaparin [Lovenox] 80 mg SUBCUT Q12H 30 Days #48 ml 01/09/21 ipratropium-albuterol 3 ml INHALATION Q6HWA.RT 30 Days #90 ml 01/09/21 levofloxacin 500 mg PO Q48@0600 #5 tab 01/09/21 menthol-zinc oxide [Calmoseptine] 1 applic TOPICAL TID #71 g 01/09/21 metronidazole 500 mg PO TID 5 Days #15 tab 01/09/21 polyethylene glycol 3350 17 g PO DAILY PRN 30 Days #30 ea 01/09/21 sennosides-docusate sodium [Stool Softener-Stimulant Laxat] 1 tab-cap PO BID 30 Days #60 tab 01/09/21 Hospital Course Operations - (01/05/21 Incision and debridement of abdominal abscess, removal of mesh, small bowel resection, extensive lysis of adhesions per Dr. Saucedo.) Procedures 2-D Echocardiogram and EKG Summary of Care Provided Minutes Spent on Discharge: 35 Hospital Course: Discharge Diagnoses: 1. 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 Transaminitis, suspected secondary to antibiotics 3. Severe candidal bilateral inguinal and suprapubic region intertrigo 4. CKD stage G3b/A1, GFR 30-44 and albumin creatinine ratio <30 mg/g 5. Chronic anemia, AOCD 6. Rheumatoid arthritis on chronic steroid regimen 7. Hypertension 8. Restless leg syndrome 9. Morbid obesity 10. Peripheral neuropathy 11. Chronic migraines 12. Anxiety and depression 13. CODE STATUS: Full code although palliative care following. Discharge Summary: The patient is a 85 y/o F w/ PMHx: Morbid Obesity, Chronic anemia, HTN, Anxiety and Depression, RA, RLS, Chronic migraines, Peripheral chronic neuropathy, CKD stage III who presented to the [facility] ED on 12/31/20 w/ history of periumbilical/abdominal discomfort, swelling and redness over the last 3 days. Patient was evaluated outpatient by her surgeon, Dr. Saucedo and referred to the ED for evaluation. CT of the abdomen was performed and notable for a focal area of soft tissue density with a small amount of air within it suspicious for deep abscess in the subcutaneous tissue overlying a prior repair of a ventral hernia with mesh with overlying skin thickening increased markings in the subcutaneous fat worse on the right side of the midline. Percutaneous drainage of the abscess was performed by Dr. Bunn with a catheter placed in the collection deep to the umbilicus with procedure well-tolerated per report. Wound culture from aspiration of abscess with drain placement notable for Bacteroides, staph aureus, Klebsiella pneumonia. Patient eventually taken to the OR on 01/05/2021for intervention of abdominal abscess with confirmed evidence of small bowel fistula. OR cultures with staph aureus as well as yeast, not Roseanna albicans. Patient eventually transition to renally dosed Levaquin and Flagyl with de-escalation off vancomycin. Patient with ongoing wound evaluation and twice daily dressing changes wet-to-dry with attempt to continue slow closure of abdominal and incision per surgery. 01/09/2021 patient with confirmed day prior bowel movements and flatus therefore felt appropriate for discharge to home per general surgery. Patient transition to both oral Flagyl and oral Levaquin with recommended continued 5-day course per infectious disease upon transition to TCU. Matos catheter discontinued prior to TCU transition with recommendation for pure wick usage instead. Recommended upon TCU transition continued LFT monitoring as had been elevated suspected secondary to antibiotic therapy and acute presentation. PT/OT/case management consultations for discharge planning with transition 01/09/2021 to TCU. Patient in stable condition upon discharge with planned continued evaluation and TCU per general surgery, wound RN, nephrology as had been following during admission, palliative as had been following during admission as well as PCP. Discharge Time: > 35 Minutes DAY OF DISCHARGE PROGRESS NOTE: Subjective: Patient without acute event overnight per self and nursing report. Patient did confirm bowel movement and flatus day prior and ongoing flatus. She denies any significant abdominal pain at this time and notes it is controlled. Patient awaiting surgery evaluation this morning for potential additional suture placement and dressing change wet-to-dry. Patient denies fever, chills, nausea, emesis, chest pain or dyspnea. Patient agreeable to discharge to TCU for ongoing therapies and wound care. Patient will be discharged with follow-up with primary care physician within 3-5 days in addition to continued surgery evaluation, wound RN evaluation, nephrology evaluation and palliative care upon her transition to TCU. Objective: T 98.5, heart rate 70, BP 114/47, respiratory rate 18, 99% on room air. Physical Examination: General: awake, alert, oriented x 3 and cooperative, seated upright in the medical surgical bed, mildly fatigued otherwise no acute distress. Skin: normal color, normal turgor, no icterus, no cyanosis except abdominal incision with dressing in place, minimal serosanguineous drainage and groin folds with resolving intertrigo. HEENT: AT/NC, EOMI, PERRLA, MMM. Lungs: CTA bilaterally, moderate effort, mild decrease BL bases, no rales, ronchi or wheezing; Heart: Regular rate and rhythm; no gallop, rub audible. Abdomen: soft, morbidly obese, expected tenderness to palpation especially no recent incisions, dressing in place, no rebound or guarding, distant normal bowel sounds. Extremities: no cyanosis or clubbing, mild BL ankle edema. Neurological: patient awake, alert, oriented as noted; cognitive function appears intact upon questioning,; pupils equally reactive to light and accomodation; cranial nerves II-XII grossly normal, moving all 4 extremities, strength improving, remains moderately to severely globally decreased. Psychiatric: affect appears mildly fatigued otherwise normal, no acute evidence of depressive or anxiety feelings. Assessment and Plan: Please see hospital summary above. ABG / Lab / Microbiology Data Result Diagrams: 01/09/21 07:21 01/09/21 07:21 Laboratory: Laboratory Results - last 24 hr 01/09/21 01/09/21 01/09/21 07:21 07:21 07:21 WBC 5.3 RBC 3.11 L Hgb 8.8 L Hct 28.5 L MCV 91.6 MCH 28.3 MCHC 30.9 L RDW Std Deviation 58.1 H RDW Coeff of Laxmi 17.7 H Plt Count 193 MPV 9.5 Immature Gran % (Auto) 2.600 H Neut % (Auto) 70.4 H Lymph % (Auto) 12.1 L Cassia % (Auto) 10.2 H Eos % (Auto) 3.8 Baso % (Auto) 0.9 Absolute Neuts (auto) 3.7 Absolute Lymphs (auto) 0.64 L Nucleated RBC % 0 Sodium 142 Potassium 4.5 Chloride 112 H Carbon Dioxide 25.0 Anion Gap 5 BUN 27 H Creatinine 1.64 H Estim Creat Clear Calc 32.00 Est GFR (MDRD) Af Amer 38 L Est GFR (MDRD) Non-Af 32 L BUN/Creatinine Ratio 16.5 Glucose 105 Calcium 8.7 Phosphorus 2.7 Magnesium 2.4 Total Bilirubin 0.30 Direct Bilirubin 0.09 AST 38 H ALT 73 H Alkaline Phosphatase 225 H Total Protein 4.9 L Albumin 1.9 L Globulin 3.0 Microbiology: Microbiology 01/05/21 Unknown Gram Stain - Final Tissue - Abdominal Wound Culture - Final Gram Positive Cocci Yeast, not Roseanna albicans Anaerobic Culture - Preliminary No anaerobic bacteria isolated. 01/05/21 14:07 Gram Stain - Final Wound Drainage - Abdominal Wound Culture - Final Staphylococcus aureus Yeast, not Roseanna albicans Anaerobic Culture - Final No anaerobic bacteria isolated. Microbiology 01/05/21 Unknown Tissue - Abdominal Gram Stain - Final 01/05/21 Unknown Tissue - Abdominal Wound Culture - Final Gram Positive Cocci Yeast, not Roseanna albicans 01/05/21 Unknown Tissue - Abdominal Anaerobic Culture - Preliminary No anaerobic bacteria isolated. 01/05/21 14:07 Wound Drainage - Abdominal Gram Stain - Final 01/05/21 14:07 Wound Drainage - Abdominal Wound Culture - Final Staphylococcus aureus Yeast, not Roseanna albicans 01/05/21 14:07 Wound Drainage - Abdominal Anaerobic Culture - Final No anaerobic bacteria isolated. 01/01/21 13:30 Wound Abcess - Abdominal Gram Stain - Final 01/01/21 13:30 Wound Abcess - Abdominal Wound Culture - Final Klebsiella pneumoniae sp pneum Staphylococcus aureus 01/01/21 13:30 Wound Abcess - Abdominal Anaerobic Culture - Final Bacteroides ovatus 12/31/20 11:25 Blood Culture (Wb) - Right Forearm Blood Culture - Final No growth in 5 days. 05/27/21 10:45 Blood Culture (Wb) - Anticubital Left Blood Culture - Final No growth in 5 days. 12/31/20 11:25 Urine, Catheterized Urine Culture - Final Culture exhibits no growth. 12/31/20 13:25 Interface Orders SARS-CoV-2 Antigen (Rapid) - Final D/C Instructions Please Follow Up With: Prema Saucedo MD Meaningful Use Info Meaningful Use Diagnoses (Choose all that apply): None applicable Discharge Plan Admission Admit Date/Time: 12/31/20 15:50 Primary Reason for Your Visit: Transaminitis, Abdominal abscess possible small bowel fistula Attending Provider: Nela Blanco Primary Care Provider: Candice Amado Consulting Providers: Prema Saucedo ; Hugh Sheth ; Carey Duron ; Francisco Reeder ; Carla Stewart ; Olena Washburn ; Latia Gagnon ; Shannon Murphy PROPERTY UNDERWRITER ; Herman Osorio Instructions Patient Instructions: Abscess Drainage, ED Procedural Sedation, (Adult) Discharge Orders/Prescriptions Prescriptions: New polyethylene glycol 3350 17 gram Powder In Packet 17 g PO DAILY PRN (Reason: constipation) 30 Days Qty: 30 RF: 0 sennosides-docusate sodium [Stool Softener-Stimulant Laxat] 8.6-50 mg Tablet 1 tab-cap PO BID 30 Days Qty: 60 RF: 0 metronidazole 500 mg Tablet 500 mg PO TID 5 Days Qty: 15 RF: 0 Calmoseptine 0.44-20.6 % Ointment 1 applic topical TID Qty: 71 RF: 0 acetaminophen [Tylenol] 325 mg Tablet 650 mg PO Q6H PRN PRN (Reason: Pain Score 1-10/Temp > 100.7 F) 30 Days Qty: 30 RF: 0 ipratropium-albuterol 0.5 mg-3 mg(2.5 mg base)/3 mL Solution For Nebulization 3 ml inhalation Q6HWA.RT 30 Days Qty: 90 RF: 0 amlodipine 10 mg Tablet 10 mg PO DAILY 30 Days Qty: 30 RF: 0 levofloxacin 500 mg Tablet 500 mg PO Q48@0600 Qty: 5 RF: 0 enoxaparin [Lovenox] 80 mg/0.8 mL syringe 80 mg subcut Q12H 30 Days Qty: 48 RF: 0 Continued gabapentin 300 mg capsule 300 mg PO QHS RF: 0 ropinirole 0.5 mg tablet 0.5 mg PO QHS RF: 0 hydroxychloroquine 200 mg tablet 200 mg PO BID RF: 0 sumatriptan succinate [Imitrex] 100 MG tablet 100 mg PO .X1 PRN MDD MIGRAINE RF: 0 atenolol 25 MG tablet 25 mg PO BID RF: 0 multivitamin with folic acid [Thera] 1 TABLET tablet 1 tab PO DAILY RF: 0 ferrous sulfate 325 MG tablet 325 mg PO DAILY RF: 0 solifenacin 10 MG tablet 10 mg PO DAILY RF: 0 albuterol sulfate 1 PUFF inhaler 1 - 2 puff inhalation Q4H PRN PRN (Reason: Sob &/Or Wheezing) Qty: 1 RF: 0 gabapentin 100 mg capsule 100 mg PO BID RF: 0 duloxetine 60 mg capsule,delayed release(DR/EC) 60 mg PO BID RF: 0 Discontinued cephalexin 500 mg capsule 500 mg PO BID RF: 0 prednisone 10 mg tablet 10 mg PO DAILY PRN (Reason: flair) RF: 0 diphenoxylate-atropine [Lomotil] 1 EACH tablet 2.5 mg PO TID PRN PRN (Reason: Diarrhea) RF: 0 furosemide 20 MG tablet 20 mg PO BID RF: 0 apixaban 5 MG tablet 5 mg PO BID RF: 0 No Action nystatin 1 APPLIC bottle 1 applic topical TID Qty: 1 RF: 0 Referrals / Follow Up: Herman Osorio MD [STAFF PHYSICIAN] - (Follow-up within 1 week, evaluated in hospital.) Candice Amado DO [Primary Care Provider] - (Follow-up within 1-2 days SNF d/c and within 3-5 days hospital d/c.) Prema Saucedo MD [STAFF PHYSICIAN] - (Will follow in TCU.) Olena Washburn NP-C [Nurse Practitioner] - (Continue to follow in TCU.) Disposition Disposition (needs filled in before D/C Order can be placed): Residential Facility Charges/Coding Visit Charges Inpatient E&M: 08697 Disch Hosp
[2021-01-09] MEDS: levoFLOXacin 500 MG Tablet PO (11:00)
[2021-01-09] MEDS: Morphine 2 MG/ML Syringe IV (11:00)
--- NOTE | 2021-01-09 12:39 | NURSING ---
Report given to MINH Rasmussen in TCU
[2021-01-09 13:11] VITALS: BP 114/47; PULSE 70; RESP 18; TEMP 36.9; O2SAT 99
== END 2021-01-09 13:45 | DRG 579 ==
LOC: ED 11:05 → MS3 15:54
PROVIDERS: Hospitalist; Internal Medicine; Surgery; Admitting Provider Internal Medicine; Emergency Provider Emergency Medicine; PCP Internal Medicine; Visit Provider Family Medicine
PROC: 0JD80ZZ Extraction of Abdomen Subcutaneous Tissue and Fascia, Open Approach (ICD-10-PCS; principal; 2021-01-05 13:15)
DX: L02.211 Cutaneous abscess of abdominal wall (principal); K63.1 Perforation of intestine (nontraumatic); N18.4 Chronic kidney disease, stage 4 (severe); Z68.43 Body mass index [BMI] 50.0-59.9, adult; B37.2 Candidiasis of skin and nail; M06.9 Rheumatoid arthritis, unspecified; Z66 Do not resuscitate; B96.1 Klebsiella pneumoniae [K. pneumoniae] as the cause of diseases classified elsewhere; L03.316 Cellulitis of umbilicus; B95.61 Methicillin susceptible Staphylococcus aureus infection as the cause of diseases classified elsewhere; L03.311 Cellulitis of abdominal wall; L30.4 Erythema intertrigo; K66.0 Peritoneal adhesions (postprocedural) (postinfection); F41.9 Anxiety disorder, unspecified; H91.93 Unspecified hearing loss, bilateral; I12.9 Hypertensive chronic kidney disease with stage 1 through stage 4 chronic kidney disease, or unspecified chronic kidney disease; D63.1 Anemia in chronic kidney disease; R74.01 Elevation of levels of liver transaminase levels; E66.01 Morbid (severe) obesity due to excess calories; G43.909 Migraine, unspecified, not intractable, without status migrainosus; F32.9 Major depressive disorder, single episode, unspecified; G25.81 Restless legs syndrome; G62.9 Polyneuropathy, unspecified; Z90.49 Acquired absence of other specified parts of digestive tract; Z86.718 Personal history of other venous thrombosis and embolism; Z79.52 Long term (current) use of systemic steroids; Z71.3 Dietary counseling and surveillance; K59.00 Constipation, unspecified
CPT/HCPCS: 36415; 71045; 74176; 75989; 80048; 80053; 80076; 80202; 82607; 82977; 83605; 83735; 84100; 84134; 85025; 85610; 85730; 87040; 87070; 87075; 87077; 87086; 87102; 87176; 87186; 87205; 87206; 87426; 88305; 88307; 93005; 94640; 94667; 94668; 97110; 97162; 97166; 97530; 97535; 97803; 99156; 99283; J7030; J7040; J7050; J7120; A4216; J2405; J3420; J7799

== ENCOUNTER 2021-01-09 01:45 | Inpatient (IN) | payer MEDICARE, BC, SELFPAY ==
[2021-01-05 13:03] VITALS: BMI 51.2
[2021-01-09 14:05] VITALS: BP 114/61; PULSE 81; RESP 18; TEMP 36.6; O2SAT 94; BMI 36.6
[2021-01-09] MEDS: metroNIDAZOLE 500 MG Tablet PO (17:18)
[2021-01-09] MEDS: Gabapentin 100 MG Capsule PO (17:18)
[2021-01-09] MEDS: Senna/Docusate Sodium 1 Tablet PO (17:19)
[2021-01-09] MEDS: DULoxetine Hcl 60 MG Capsule PO (17:19)
[2021-01-09] MEDS: Atenolol 25 MG Tablet PO (17:20)
[2021-01-09 18:56] VITALS: PULSE 88; RESP 20; O2SAT 98
[2021-01-09] MEDS: Ipratropium/Albuterol Sulfate 3 ML AMPUL.NEB INHALATION (18:56)
[2021-01-09] MEDS: Enoxaparin 80 MG/0.8 ML Syringe SC (20:18)
[2021-01-09] MEDS: Hydroxychloroquine 200 MG Tablet PO (20:18)
[2021-01-09] MEDS: Pramipexole Di-HCl 0.25 MG Tablet PO (20:18)
[2021-01-09] MEDS: Gabapentin 300 MG Capsule PO (20:18)
[2021-01-09] MEDS: Menthol/Lanolin/Calamine/Znox 113 GM Tube 1 APPLIC TOPICAL (20:20)
[2021-01-09] MEDS: Acetaminophen 325 MG Tablet 650 MG PO (20:21)
[2021-01-09] MEDS: Nystatin Powder 15gm Bottle 1 APPLIC TOPICAL (20:21)
[2021-01-10] VITALS (7 sets, daily range): BP systolic 109–122; BP diastolic 53–60; PULSE 76–82; RESP 16–20; TEMP 35.8–36.9; O2SAT 91–95
[2021-01-10] MEDS: Tolterodine Tartrate 4 MG CAP.SA PO (05:22)
[2021-01-10] MEDS: DULoxetine Hcl 60 MG Capsule PO ×2 (05:22→17:05)
[2021-01-10] MEDS: amLODIPine 10 MG Tablet PO (05:22)
[2021-01-10] MEDS: Senna/Docusate Sodium 1 Tablet PO ×2 (05:22→17:06)
[2021-01-10] MEDS: Hydroxychloroquine 200 MG Tablet PO ×2 (05:22→17:06)
[2021-01-10] MEDS: Atenolol 25 MG Tablet PO ×2 (05:22→17:13)
[2021-01-10] MEDS: Menthol/Lanolin/Calamine/Znox 113 GM Tube 1 APPLIC TOPICAL ×3 (05:24→21:39)
[2021-01-10] MEDS: Nystatin Powder 15gm Bottle 1 APPLIC TOPICAL ×3 (05:25→21:40)
[2021-01-10 06:02] LABS: Absolute Lymphocyte Count 0.99 X10^3/uL (0.83-4.51); Absolute Neutrophil Count 4.1 X10^3/uL (2.0-7.7); Basophil# 0.06 X10^3/uL; Basophil% 0.9 % (0-1); Eosinophil# 0.19 X10^3/uL; Hemoglobin 9.4 g/dL (12.0-15.0); Lymphocyte # 0.99 X10^3/ul (0.83-4.51); Lymphocyte % 15.5 % (19-41); Mean Corp Hgb Conc 31.3 g/dL (32-36); Mean Corpuscular Hgb 28.7 pg (27.0-32.0); Mean Corpuscular Volume 91.5 fL (81-99); Monocyte# 0.82 X10^3/uL; Monocyte% 12.8 % (0-10); NRBC Flagged by Analyzer 0 % (0-5); Neutrophil % 64.2 % (47-70); Platelet Count 201 K/mm3 (150-450); RBC Distribution Width CV 18.6 % (11.6-14.6); RBC Distribution Width SD 59.9 fl (35.1-43.9); Red Blood Count 3.28 M/mm3 (4.2-5.4); White Blood Count 6.4 K/mm3 (4.4-11.0)
[2021-01-10 06:18] LABS: Anion Gap 4 (5-15); BUN 33 mg/dL (7-18); BUN/Creat Ratio 18.3 RATIO (10-20); Calcium,Total 9.2 mg/dL (8.5-10.1); Chloride 108 mmol/L (98-107); EST Glomerular Filtration Rate 28 mL/min (>60); Est Glom Filt Rate - Afr Amer 34 mL/min (>60); Estimated Creatinine Clearance 30.27 ml/min; Glucose 116 mg/dL (74-106); Potassium 4.7 mmol/L (3.5-5.1); Sodium Level 139 mmol/L (136-145)
[2021-01-10] MEDS: Gabapentin 100 MG Capsule PO ×2 (08:25→17:05)
[2021-01-10] MEDS: metroNIDAZOLE 500 MG Tablet PO ×3 (08:25→17:05)
[2021-01-10] MEDS: Multivitamins,Ther W-Minerals Tablet 1 TABLET PO (08:25)
[2021-01-10] MEDS: Acetaminophen 325 MG Tablet 650 MG PO ×2 (08:28→16:10)
--- NOTE | 2021-01-10 08:30 | PCM.PN.SRG ---
Subjective Subjective Patient did have some abdominal soreness this morning. Tolerating diet having bowel function. TAYLOR is serosanguineous Objective Data Objective Data Vital Signs: Vital Signs Temp Pulse Resp BP Pulse Ox 98.4 F 77 16 116/60 95 01/10/21 05:28 01/10/21 06:32 01/10/21 06:32 01/10/21 05:28 01/10/21 06:32 Oxygen Delivery Method Room Air Weight: 181 lb 11.2 oz Body Mass Index (BMI) 36.6 Intake & Output: Intake and Output for Last 24 Hours 01/08/21 01/09/21 01/10/21 23:59 23:59 23:59 Intake Total 120 / 120 Output Total 50 / 50 100 / 100 Balance 70 / 70 -100 / -100 Lab / Micro Data Result Diagrams: 01/10/21 05:40 01/10/21 05:40 Labs: Laboratory Results - last 24 hr 01/09/21 01/10/21 01/10/21 19:10 05:40 05:40 WBC 6.4 RBC 3.28 L Hgb 9.4 L Hct 30.0 L MCV 91.5 MCH 28.7 MCHC 31.3 L RDW Std Deviation 59.9 H RDW Coeff of Laxmi 18.6 H Plt Count 201 MPV 9.0 Immature Gran % (Auto) 3.600 H Neut % (Auto) 64.2 Lymph % (Auto) 15.5 L Kidder % (Auto) 12.8 H Eos % (Auto) 3.0 Baso % (Auto) 0.9 Absolute Neuts (auto) 4.1 Absolute Lymphs (auto) 0.99 Nucleated RBC % 0 Sodium 139 Potassium 4.7 Chloride 108 H Carbon Dioxide 27.0 Anion Gap 4 L BUN 33 H Creatinine 1.80 H Estim Creat Clear Calc 30.27 Est GFR (MDRD) Af Amer 34 L Est GFR (MDRD) Non-Af 28 L BUN/Creatinine Ratio 18.3 Glucose 116 H Calcium 9.2 COVID-19 (DESI) Not Detected Physical Exam Narrative Abdomen: Soft, mild tenderness at incision, incision dressed and packed in retention sutures in place. TAYLOR serosanguineous?removed at bedside Resp normal respiratory effort Cardio regular rate Assessment & Plan Assessment/Plan (1) S/P small bowel resection: (2) Small bowel perforation: PLAN: Patient's wound is being packed with wet-to-dry's. Patient tolerating diet and having bowel function TAYLOR removed at bedside. We will continue to follow Patient on therapeutic Lovenox due to history of DVT Prema Saucedo M.D. Pager: [phone] [facility] [address] [place] [address], [address] [place] [address] Office: [phone]
--- NOTE | 2021-01-10 08:54 | NURSING ---
Dr. Saucedo in today, Larry drain pulled and dressing applied, Continue to change midline incision dressing BID.
[2021-01-10] MEDS: Tuberculin,Purif.prot.deriv. 50 TU/ML Vial 0.1 ML ID (10:50)
[2021-01-10] MEDS: Ferrous Sulfate 325 MG Tablet PO (12:11)
[2021-01-10] MEDS: Ipratropium/Albuterol Sulfate 3 ML AMPUL.NEB INHALATION ×2 (13:40→18:44)
[2021-01-10] MEDS: Juven (unflavored) Packet 1 PACKET PO (17:04)
[2021-01-10] MEDS: Enoxaparin 80 MG/0.8 ML Syringe SC (17:05)
[2021-01-10] MEDS: Gabapentin 300 MG Capsule PO (21:39)
[2021-01-10] MEDS: Pramipexole Di-HCl 0.25 MG Tablet PO (21:39)
[2021-01-11] VITALS (7 sets, daily range): BP systolic 95–107; BP diastolic 53–62; PULSE 74–90; RESP 16–20; TEMP 36.7–37.2; O2SAT 96–98
[2021-01-11] MEDS: Tolterodine Tartrate 4 MG CAP.SA PO (06:42)
[2021-01-11] MEDS: DULoxetine Hcl 60 MG Capsule PO ×2 (06:42→17:40)
[2021-01-11] MEDS: Atenolol 25 MG Tablet PO ×2 (06:42→17:52)
[2021-01-11] MEDS: amLODIPine 10 MG Tablet PO (06:42)
[2021-01-11] MEDS: Senna/Docusate Sodium 1 Tablet PO ×2 (06:42→17:40)
[2021-01-11] MEDS: Hydroxychloroquine 200 MG Tablet PO ×2 (06:42→17:40)
[2021-01-11] MEDS: levoFLOXacin 500 MG Tablet PO (06:44)
[2021-01-11] MEDS: Nystatin Powder 15gm Bottle 1 APPLIC TOPICAL ×3 (06:53→22:26)
[2021-01-11] MEDS: Ipratropium/Albuterol Sulfate 3 ML AMPUL.NEB INHALATION ×3 (06:54→19:15)
[2021-01-11] MEDS: Menthol/Lanolin/Calamine/Znox 113 GM Tube 1 APPLIC TOPICAL ×3 (06:54→22:26)
[2021-01-11] MEDS: Juven (unflavored) Packet 1 PACKET PO ×2 (09:30→17:40)
[2021-01-11] MEDS: Multivitamins,Ther W-Minerals Tablet 1 TABLET PO (09:30)
[2021-01-11] MEDS: metroNIDAZOLE 500 MG Tablet PO ×3 (09:30→17:40)
[2021-01-11] MEDS: Gabapentin 100 MG Capsule PO ×2 (09:30→17:40)
[2021-01-11] MEDS: Acetaminophen 325 MG Tablet 650 MG PO ×2 (09:44→17:52)
--- NOTE | 2021-01-11 10:25 | NURSING ---
wound photo: abdomen
--- NOTE | 2021-01-11 10:52 | PCM.HP.STD ---
HPI - General General Date of Admission: 01/09/21 Chief Complaint: Generalized weakness/debility due to laparotomy and drainage of abdominal wall abcess. HPI Kasia HUSAIN, is a 85 F who was admitted to [facility] on 12/31/2020 for abdominal swelling, pain and redness for the preceding 3 days. On physical examination she had periumbilical swelling and redness and there was tenderness to palpation. White blood cell count was elevated at 11.4 and there was a left shift.. Creatinine was 1.9 with a BUN of 39. She was diagnosed with abdominal wall abscess and cellulitis and was started on Zosyn. She was seen in consultation by Dr. Saucedo. Because she had had Eliquis on the date of admission interventional radiology was consulted for an IR guided drain placement. the pt and her family were made aware that the previously placed mesh might become infected and need to be removed. On 01/05/2021 she went to surgery for incision and debridement of the abdominal wall abscess, removal of mesh, small bowel resection and extensive lysis of adhesions. She was transferred to TCU on for strengthening due to debility due to infection and surgery. She is on Levaquin and Metronidazole for 5 more [address] transfer. Dr. Saucedo will continue to follow the pt while she is in TCU. The EMR from the recent admission and old records were reviewed. FORMERLY [facility] Medical History Abnormal bruising Anxiety Chronic neck and back pain Difficulty balancing when standing DVT (deep venous thrombosis) Hearing loss, left Hearing loss, right Incontinence Knee pain Migraines Non-smoker On home oxygen therapy Polyosteoarthritis Polyosteoarthritis Severe headache Shoulder pain SOB (shortness of breath) Home Medications atenolol 25 mg PO BID 06/09/15 [History Last Taken 12/31/20] sumatriptan succinate [Imitrex] 100 mg PO .X1 PRN MDD MIGRAINE 06/09/15 [History Last Taken Unknown] multivitamin with folic acid [Thera] 1 tab PO DAILY 01/29/18 [History Last Taken 2 Weeks Ago ~12/17/20] ferrous sulfate 325 mg PO DAILY 10/19/19 [History Last Taken 12/31/20] solifenacin 10 mg PO DAILY 10/19/19 [History Last Taken 12/31/20] albuterol sulfate 1 - 2 puff INHALATION Q4H PRN PRN #1 inhaler 10/23/19 [Rx Last Taken Unknown] duloxetine 60 mg PO BID 12/31/20 [History Last Taken 12/31/20] gabapentin 100 mg PO BID 12/31/20 [History Last Taken 12/31/20] gabapentin 300 mg capsule 300 mg PO QHS cap 12/31/20 [History Last Taken 12/30/20] hydroxychloroquine 200 mg tablet 200 mg PO BID tab 12/31/20 [History Last Taken 12/31/20] ropinirole 0.5 mg tablet 0.5 mg PO QHS tab 12/31/20 [History Last Taken 12/30/20] acetaminophen [Tylenol] 650 mg PO Q6H PRN PRN 30 Days #30 tab 01/09/21 [Rx Last Taken Unknown] amlodipine 10 mg PO DAILY 01/09/21 [History Last Taken Unknown] enoxaparin [Lovenox] 80 mg SUBCUT Q12H 01/09/21 [History Last Taken Unknown] ipratropium-albuterol 3 ml INHALATION Q6HWA.RT 01/09/21 [History Last Taken Unknown] levofloxacin 500 mg PO Q48@0600 01/09/21 [History Last Taken Unknown] menthol-zinc oxide [Calmoseptine] 1 applic TOPICAL TID #71 g 01/09/21 [Rx Last Taken Unknown] metronidazole 500 mg PO TID 01/09/21 [History Last Taken Unknown] nystatin 1 applic TOPICAL TID 01/09/21 [History Last Taken Unknown] polyethylene glycol 3350 17 g PO DAILY PRN 30 Days #30 ea 01/09/21 [Rx Last Taken Unknown] sennosides-docusate sodium [Stool Softener-Stimulant Laxat] 1 tab-cap PO BID 01/09/21 [History Last Taken Unknown] Allergy/AdvReac Type Severity Reaction Status Date / Time No Known Allergies Allergy Verified 12/31/20 10:39 Family History Mother No significant active problems Other Headache Surgical History History of appendectomy History of back surgery History of cholecystectomy History of foot surgery History of hernia surgery History of surgery on wrist Small bowel perforation Social History household members: family housing: house Smoking Status: Never smoker alcohol intake: never ROS Constitutional Constitutional: Denies difficulty sleeping or headache(s) Eyes Eyes: Denies change in vision ENT HEENT: Reports dry mouth Cardiovascular Cardiovascular: Reports lightheadedness; Denies chest pain or racing heartbeat Respiratory/Chest Respiratory/Chest: Denies cough Gastrointestinal Gastrointestinal: Reports abdominal pain and diarrhea Genitourinary Genitourinary: Denies burning urination or urinary urgency Musculoskeletal Musculoskeletal: Reports muscle weakness Integumentary Integumentary: Denies jaundice or rash Neurologic Neurologic: Denies abnormal movements, abnormal speech or focal weakness Psychiatric Psychiatric: Denies auditory hallucinations or confusion Vital Signs Vital Signs Vital Signs: 01/10/21 13:40 01/10/21 13:59 01/10/21 15:51 Temperature 96.5 F L Temperature Source Temporal Pulse Rate 78 80 Pulse Rhythm Pulse Strength Respiratory Rate 20 H 16 Respiratory Effort Respiratory Depth Respiratory Pattern Tachypnea Blood Pressure 109/53 L Blood Pressure Mean 71 Blood Pressure Source Monitor Blood Pressure Position Supine Blood Pressure Location Right Arm Pulse Ox 91 93 Oxygen Delivery Method Room Air Room Air Oxygen Flow Rate (L/min) 01/10/21 18:44 01/10/21 18:51 01/11/21 04:23 Temperature 98.9 F Temperature Source Temporal Pulse Rate 82 76 80 Pulse Rhythm Pulse Strength Respiratory Rate 20 H 16 Respiratory Effort Respiratory Depth Respiratory Pattern Normal Blood Pressure 122/56 H 107/53 L Blood Pressure Mean 78 71 Blood Pressure Source Blood Pressure Position Blood Pressure Location Pulse Ox 97 Oxygen Delivery Method Nasal Cannula Oxygen Flow Rate (L/min) 1 01/11/21 04:27 01/11/21 06:54 Temperature Temperature Source Pulse Rate 80 74 Pulse Rhythm Regular Pulse Strength Normal (2+) Respiratory Rate 16 18 Respiratory Effort Normal Non-Labored Respiratory Depth Normal Respiratory Pattern Normal Normal Blood Pressure Blood Pressure Mean Blood Pressure Source Blood Pressure Position Blood Pressure Location Pulse Ox 98 Oxygen Delivery Method Nasal Cannula Nasal Cannula Oxygen Flow Rate (L/min) 1 1 Weight Weight: 181 lb 11.2 oz Body Mass Index (BMI) 36.6 Physical Exam Const alert, oriented x3, no apparent distress and well nourished Constitutional Narrative: obese General Appearance: cooperative and comfortable HEENT HEENT Narrative: Dry mucous membranes Head and Scalp: normal to inspection and normocephalic Eyes EOMs intact bilaterally Neck supple Chest inspection of chest normal Chest: symmetrical chest wall rise Resp normal respiratory effort Resp Narrative: Breath sounds are diminished in the bases-possibly secondary to body habitus and the fact that she is sitting in the bed in her belly is pushing up on her diaphragm. Effort and Inspection: able to speak in complete sentences Cardio regular rate, regular rhythm, S1 normal heart sound, S2 normal heart sound, no murmurs and no gallops GI GI Narrative: She has an abdominal binder on. I did not examine the wound is there is a surgical dressing on it. The abdomen is obese. Normal bowel sounds are present. It is mildly tender to palpation. Extremity no pedal edema Skin no jaundice Skin Narrative: No rashes Neuro CN's II-XII intact bilaterally and moves all extremities Psych mental status grossly normal Appearance: appropriate and well kempt Attitude: calm Results Lab / Micro Data Result Diagrams: 01/10/21 05:40 01/10/21 05:40 Assessment & Plan Assessment/Plan (1) Debility: (2) Abdominal wall abscess: (3) Small bowel fistula: (4) S/P small bowel resection: (5) H/O abdominal surgery: (6) Transaminitis: (7) Anemia: QUALIFIERS: Anemia type: iron deficiency Iron deficiency anemia type: chronic blood loss Qualified Code(s): D50.0 - Iron deficiency anemia secondary to blood loss (chronic) (8) CKD stage G3b/A1, GFR 30-44 and albumin creatinine ratio <30 mg/g: (9) Hypertension: (10) Spondylosis of lumbar region without myelopathy or radiculopathy: (11) Rheumatoid arthritis: QUALIFIERS: Rheumatoid arthritis location: unspecified site Rheumatoid factor presence: unspecified presence Qualified Code(s): M06.9 - Rheumatoid arthritis, unspecified (12) Migraine: QUALIFIERS: Intractability: not intractable Migraine type: unspecified Status migrainosus presence: without status migrainosus Qualified Code(s): G43.909 - Migraine, unspecified, not intractable, without status migrainosus (13) Asthma: QUALIFIERS: Asthma complication type: uncomplicated Asthma persistence: intermittent Asthma severity: mild Qualified Code(s): J45.20 - Mild intermittent asthma, uncomplicated (14) Hiatal hernia: (15) Low back pain: QUALIFIERS: Back pain laterality: bilateral Chronicity: chronic Sciatica presence: without sciatica Qualified Code(s): M54.5 - Low back pain; G89.29 - Other chronic pain (16) History of DVT in adulthood: (17) Osteoarthritis involving multiple joints on both sides of body: (18) Dehydration: PLAN: PLAN PT for gait stability OT for ADL's Analgesics as needed Bowel protocol Fall precautions Assess for Anxiety/Depression GI prophylaxis not necessary at this time.......she is asymptomatic She is on therapeutic Lovenox - usually on Eliquis Follow up with Dr. Saucedo and PCP following DC from [facility] All lab from 01/10 was personally reviewed Encouraged her to increase her fluid intake and also asked PT to have her drink a glass of water any time they are with her Charges/Coding Visit Charges Inpatient E&M: 44722 Init Hosp L2
--- NOTE | 2021-01-11 11:25 | CASEMGMT ---
Social Work Pt qualifies for Palliative services. Referral made to [facility]. Bryanna Harrell, [employer]UL [employer] EXECUTIVE CONSULTANT
[2021-01-11] MEDS: Ferrous Sulfate 325 MG Tablet PO (11:51)
--- NOTE | 2021-01-11 11:55 | CASEMGMT ---
Social Work Met with pt for initial assessment. Discussed Code status and MOLST form with Pt. Pt choosing full code with intubation and trial period of artificial nutrition. Communication to , form placed in chart. Explained Medicare benefit. Pt is hopeful she can return home with her daughter and son at time of discharge. 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 SW will continue to follow. MABEL Worthy
[2021-01-11] MEDS: Rizatriptan Benzoate 10 MG Tablet PO (12:43)
--- NOTE | 2021-01-11 13:38 | NURSING ---
DR. HARRIS STATED SHE WILL BE IN TOMORROW 01/12/21 TO SEE PT.
--- NOTE | 2021-01-11 15:17 | PCM.PN.RX ---
Progress Note - Pharmacy Subjective: TCU Admission Objective: Allergies No Known Allergies Allergy (Verified 12/31/20 10:39) Current Medications Generic Name Dose Route Start Last Admin Trade Name Freq PRN Reason Stop Dose Admin Acetaminophen 650 mg 01/09/21 14:18 01/11/21 09:44 Acetaminophen 325 Mg Tablet PO 650 mg Q6H PRN PRN Administration Pain Score 1-10/Temp > 100.7 F Albuterol Sulfate 1 - 2 puff 01/09/21 14:18 Albuterol Sulfate 8 Gm Inhaler (60 Puffs) INHALATION Q4H PRN PRN Sob &/Or Wheezing Albuterol/Ipratropium 3 ml 01/09/21 14:30 01/11/21 13:10 Ipratropium/Albuterol Sulfate 3 Ml Ampul.Neb INHALATION 3 ml Q6HWA.RT LILLIAN Administration Amlodipine Besylate 10 mg 01/10/21 06:00 01/11/21 06:42 Amlodipine 10 Mg Tablet PO 10 mg DAILY LILLIAN Administration Atenolol 25 mg 01/09/21 18:00 01/11/21 06:42 Atenolol 25 Mg Tablet PO 25 mg BID LILLIAN Administration Calamine/Phenol 1 applic 01/09/21 22:00 01/11/21 12:45 Menthol/Lanolin/Calamine/Znox 113 Gm Tube TOPICAL 1 applic TID LILLIAN Administration Protocol Duloxetine HCl 60 mg 01/09/21 18:00 01/11/21 06:42 Duloxetine Hcl 60 Mg Capsule PO 60 mg BID LILLIAN Administration Enoxaparin Sodium 80 mg 01/09/21 18:00 01/10/21 17:05 Enoxaparin 80 Mg/0.8 Ml Syringe SC 80 mg Q24H LILLIAN Administration Ferrous Sulfate 325 mg 01/10/21 12:00 01/11/21 11:51 Ferrous Sulfate 325 Mg Tablet PO 325 mg LUNCH LILLIAN Administration Gabapentin 100 mg 01/09/21 17:00 01/11/21 09:30 Gabapentin 100 Mg Capsule PO 100 mg BIDCM LILLIAN Administration Gabapentin 300 mg 01/09/21 22:00 01/10/21 21:39 Gabapentin 300 Mg Capsule PO 300 mg QHS LILLIAN Administration Hydroxychloroquine Sulfate 200 mg 01/09/21 18:00 01/11/21 06:42 Hydroxychloroquine 200 Mg Tablet PO 200 mg BID LILLIAN Administration L-Arginine/L-Glutamine/Calcium HMB 1 packet 01/10/21 17:00 01/11/21 09:30 Jonathan (Unflavored) Packet PO 1 packet BIDCM LILLIAN Administration Levofloxacin 500 mg 01/11/21 06:00 01/11/21 06:44 Levofloxacin 500 Mg Tablet PO 500 mg Q48@0600 LILLIAN Administration Metronidazole 500 mg 01/09/21 17:45 01/11/21 11:51 Metronidazole 500 Mg Tablet PO 500 mg TIDCM LILLIAN Administration Multivitamins/Minerals 1 tablet 01/10/21 08:00 01/11/21 09:30 Multivitamins,Ther W-Minerals Tablet PO 1 tablet BREAKFAST LILLIAN Administration Nystatin 1 applic 01/09/21 22:00 01/11/21 12:45 Nystatin Powder 15gm Bottle TOPICAL 1 applic TID LILLIAN Administration Protocol Polyethylene Glycol 17 gm 01/09/21 14:32 Polyethylene Glycol 3350 17 Gm Packet PO DAILY PRN PRN constipation Pramipexole Dihydrochloride 0.25 mg 01/09/21 22:00 01/10/21 21:39 Pramipexole Di-Hcl 0.25 Mg Tablet PO 0.25 mg QHS LILLIAN Administration Rizatriptan Benzoate 10 mg 01/09/21 15:17 01/11/21 12:43 Rizatriptan Benzoate 10 Mg Tablet PO 10 mg X1 PRN Administration MIGRAINE SYMPTOMS Senna/Docusate Sodium 1 tablet 01/09/21 18:00 01/11/21 06:42 Senna/Docusate Sodium 1 Tablet PO 1 tablet BID LILLIAN Administration Tolterodine Tartrate 4 mg 01/10/21 06:00 01/11/21 06:42 Tolterodine Tartrate 4 Mg Cap.Sa PO 4 mg DAILY LILLIAN Administration Tuberculin PPD 0.1 ml 01/17/21 10:00 Tuberculin,Purif.Prot.Deriv. 50 Tu/Ml Vial ID 01/17/21 10:01 X1 ONE Problem List (Last Reviewed 01/11/21 @ 12:[address] Heidi Lynch DO) Dehydration (Acute) Small bowel fistula (Acute) H/O abdominal surgery (Acute) Hypertension (Chronic) CKD stage G3b/A1, GFR 30-44 and albumin creatinine ratio <30 mg/g (Acute) S/P small bowel resection (Acute) Debility (Acute) Transaminitis (Acute) Spondylosis of lumbar region without myelopathy or radiculopathy (Chronic) Anemia (Acute) Rheumatoid arthritis (Chronic) Migraine (Chronic) Asthma (Chronic) Hiatal hernia (Chronic) Low back pain (Acute) History of DVT in adulthood (Acute) Osteoarthritis involving multiple joints on both sides of body (Acute) Abdominal wall abscess (Acute) Vital Signs Temp Pulse Resp BP Pulse Ox 98.0 F 76 16 98/60 96 01/11/21 14:51 01/11/21 14:51 01/11/21 14:51 01/11/21 14:51 01/11/21 14:51 Oxygen Flow Rate (L/min) 1 Oxygen Delivery Method Nasal Cannula Weight: 82.418 kg Body Mass Index (BMI) 36.6 Sodium 139 mmol/L (136-145) 01/10/21 05:40 Potassium 4.7 mmol/L (3.5-5.1) 01/10/21 05:40 Chloride 108 mmol/L (98-107) H 01/10/21 05:40 Carbon Dioxide 27.0 mmol/L (21.0-32.0) 01/10/21 05:40 Anion Gap 4 (5-15) L 01/10/21 05:40 BUN 33 mg/dL (7-18) H 01/10/21 05:40 Creatinine 1.80 mg/dL (0.55-1.02) H 01/10/21 05:40 Est GFR (MDRD) Af Amer 34 mL/min (>60) L 01/10/21 05:40 Est GFR (MDRD) Non-Af 28 mL/min (>60) L 01/10/21 05:40 BUN/Creatinine Ratio 18.3 RATIO (10-20) 01/10/21 05:40 Glucose 116 mg/dL (74-106) H 01/10/21 05:40 Assessment/Plan: 1. Pain: acetaminophen 650mg PO Q6H PRN pain 1-10/10 or temp >100.7. Please continue to monitor for increased pain and PRN usage. *2. Small bowel perforation: levofloxacin 500mg PO Q48H and metronidazole 500mg PO TIDCM. Please continue to monitor for S/S of infection and diarrhea. Please consider adding a stop date to both antibiotics. Thanks. 3. History of DVT: enoxaparin 80mg SC daily. Please continue to monitor hemoglobin (last 9.4g/dL), platelets (last 201,000), renal function and S/S of bleeding. 4. Anemia: ferrous sulfate 325mg PO Lunch. Please continue to monitor hemoglobin and for dark stools. 5. Rheumatoid arthritis: hydroxychloroquine 200mg PO BID. Please continue to monitor CBC. *6. Hypertension: amlodipine 10mg PO daily and atenolol 25mg PO BID. Please continue to monitor BP (last 98/60), HR (last 76) and for swelling. Please consider adding hold parameters considering last BP. Thanks. 7. Asthma: ipratropium/albuterol 3mL inhalation Q6HWA.RT and albuterol inhaler 1-2puffs Q4H PRN SOB &/or wheezing. Please continue to monitor for PRN usage. 8. Overall nutrition: multivitamin with minerals 1T PO breakfast. Please continue to monitor. 9. Migraine: rizatriptan 10mg PO x1 PRN migraine. Please continue to monitor for migraine. Psychotropic Medications: *1. Anxiety: duloxetine 60mg PO BID. Please consider GDR by 07/2021 if clinically appropriate. Thanks. *Unnecessary Medications: I did not see documented indications for gabapentin, pramipexole or tolterodine. Please consider stopping medications if clinically appropriate or adding the indications. Thanks. Bowel Regimen: Miralax 17gm PO daily PRN constipation and senna/docusate 1T PO BID. Please continue to monitor for constipation and PRN usage. Date of Note:: 01/11/21
[2021-01-11] MEDS: Enoxaparin 80 MG/0.8 ML Syringe SC (17:42)
[2021-01-11] MEDS: Gabapentin 300 MG Capsule PO (22:27)
[2021-01-11] MEDS: Pramipexole Di-HCl 0.25 MG Tablet PO (22:28)
[2021-01-12 05:00] VITALS: BP 119/56; PULSE 76; RESP 18; TEMP 36.6; O2SAT 98
[2021-01-12] MEDS: Senna/Docusate Sodium 1 Tablet PO (06:34)
[2021-01-12] MEDS: Nystatin Powder 15gm Bottle 1 APPLIC TOPICAL ×3 (06:34→21:53)
[2021-01-12] MEDS: Menthol/Lanolin/Calamine/Znox 113 GM Tube 1 APPLIC TOPICAL ×3 (06:34→21:53)
[2021-01-12] MEDS: Hydroxychloroquine 200 MG Tablet PO ×2 (06:34→17:58)
[2021-01-12] MEDS: Atenolol 25 MG Tablet PO ×2 (06:34→17:59)
[2021-01-12] MEDS: Tolterodine Tartrate 4 MG CAP.SA PO (06:34)
[2021-01-12] MEDS: DULoxetine Hcl 60 MG Capsule PO ×2 (06:34→17:58)
[2021-01-12] MEDS: amLODIPine 10 MG Tablet PO (06:34)
[2021-01-12 06:59] VITALS: PULSE 78; RESP 19; O2SAT 96
[2021-01-12] MEDS: Ipratropium/Albuterol Sulfate 3 ML AMPUL.NEB INHALATION ×3 (06:59→19:06)
--- NOTE | 2021-01-12 08:20 | PCM.PN.SRG ---
Subjective Subjective Late entry: From yesterday a.m. Patient seen patient tolerating diet having bowel function patient does have occasional soreness in the abdomen. Dressings changed wet-to-dry twice daily. Objective Data Objective Data Vital Signs: Vital Signs Temp Pulse Resp BP Pulse Ox 96.8 F L 75 16 121/59 H 96 01/13/21 04:43 01/13/21 07:19 01/13/21 07:19 01/13/21 04:43 01/13/21 10:00 Oxygen Flow Rate (L/min) 1 Oxygen Delivery Method Nasal Cannula Weight: 187 lb 3.2 oz Body Mass Index (BMI) 36.6 Intake & Output: Intake and Output for Last 24 Hours 01/11/21 01/12/21 01/13/21 23:59 23:59 23:59 Intake Total 600 / 600 360 / 360 1600 / 1600 Output Total 1050 / 1050 1025 / 1025 1050 / 1050 Balance -450 / -450 -665 / -665 550 / 550 Lab / Micro Data Result Diagrams: 01/13/21 05:15 01/13/21 05:15 Labs: Laboratory Results - last 24 hr 01/13/21 01/13/21 05:15 05:15 Hgb 8.8 L Hct 28.4 L Sodium 138 Potassium 4.7 Chloride 109 H Carbon Dioxide 26.0 Anion Gap 3 L BUN 52 H Creatinine 1.64 H Estim Creat Clear Calc 34.23 Est GFR (MDRD) Af Amer 38 L Est GFR (MDRD) Non-Af 32 L BUN/Creatinine Ratio 31.7 H Glucose 100 Calcium 9.1 Physical Exam Narrative Abdomen: Soft, mild tenderness at incision, incision dressed and packed in retention sutures in place. Good granulation tissue lower part incision closing well no signs of infection Resp normal respiratory effort Cardio regular rate Assessment & Plan Assessment/Plan (1) S/P small bowel resection: (2) Small bowel perforation: PLAN: Patient's wound is being packed with wet-to-dry's. Patient tolerating diet and having bowel function Patient on therapeutic Lovenox due to history of DVT while getting dressing changes. Prema Saucedo M.D. Pager: [phone] [facility] [address] [place] [address], [facility], [address] [place] [id number] Office: [phone]
[2021-01-12] MEDS: Juven (unflavored) Packet 1 PACKET PO ×2 (09:21→17:57)
[2021-01-12] MEDS: metroNIDAZOLE 500 MG Tablet PO ×3 (09:21→17:58)
[2021-01-12] MEDS: Gabapentin 100 MG Capsule PO ×2 (09:21→17:57)
[2021-01-12] MEDS: Multivitamins,Ther W-Minerals Tablet 1 TABLET PO (09:21)
[2021-01-12] MEDS: Acetaminophen 325 MG Tablet 650 MG PO ×2 (09:33→18:05)
--- NOTE | 2021-01-12 09:38 | NURSING ---
HOM IN TO SEE PT AND ADDED A COUPLE MORE STITCHES AROUND PT BELLY [place] AREA. RN AWARE.
[2021-01-12] MEDS: Ferrous Sulfate 325 MG Tablet PO (11:39)
[2021-01-12] MEDS: 0.9% Normal Saline 1,000 ML 60 ML IV (11:54)
[2021-01-12 13:30] VITALS: RESP 16
--- NOTE | 2021-01-12 13:47 | NURSING ---
Dr Saucedo had been in this am to change abdominal dressing. Did not change at this time. can be changed again on evening shift.
[2021-01-12 13:59] VITALS: BP 125/56; PULSE 81; RESP 16; TEMP 36.2; O2SAT 100
[2021-01-12] MEDS: Enoxaparin 80 MG/0.8 ML Syringe SC (18:07)
[2021-01-12 19:06] VITALS: PULSE 92; RESP 20; O2SAT 96
[2021-01-12] MEDS: 0.9% Saline Lock 10 ML Syringe IV (19:20)
[2021-01-12] MEDS: Pramipexole Di-HCl 0.25 MG Tablet PO (21:53)
[2021-01-12] MEDS: Gabapentin 300 MG Capsule PO (21:54)
[2021-01-13] MEDS: 0.9% Normal Saline 1,000 ML 60 ML IV ×2 (04:37→20:55)
[2021-01-13] MEDS: Tolterodine Tartrate 4 MG CAP.SA PO (04:38)
[2021-01-13] MEDS: levoFLOXacin 500 MG Tablet PO (04:38)
[2021-01-13] MEDS: Senna/Docusate Sodium 1 Tablet PO (04:38)
[2021-01-13] MEDS: Atenolol 25 MG Tablet PO ×2 (04:38→16:45)
[2021-01-13] MEDS: Hydroxychloroquine 200 MG Tablet PO ×2 (04:38→16:44)
[2021-01-13] MEDS: DULoxetine Hcl 60 MG Capsule PO ×2 (04:38→16:43)
[2021-01-13] MEDS: amLODIPine 10 MG Tablet PO (04:38)
[2021-01-13] MEDS: Menthol/Lanolin/Calamine/Znox 113 GM Tube 1 APPLIC TOPICAL ×3 (04:38→20:19)
[2021-01-13] MEDS: Nystatin Powder 15gm Bottle 1 APPLIC TOPICAL ×3 (04:39→20:21)
[2021-01-13] MEDS: Acetaminophen 325 MG Tablet 650 MG PO ×2 (04:41→13:53)
[2021-01-13 04:43] VITALS: BP 121/59; PULSE 74; RESP 18; TEMP 36; O2SAT 81
[2021-01-13 05:48] LABS: Hematocrit 28.4 % (37-47); Hemoglobin 8.8 g/dL (12.0-15.0)
[2021-01-13 06:14] LABS: Anion Gap 3 (5-15); BUN 52 mg/dL (7-18); BUN/Creat Ratio 31.7 RATIO (10-20); Calcium,Total 9.1 mg/dL (8.5-10.1); Chloride 109 mmol/L (98-107); Creatinine, Serum 1.64 mg/dL (0.55-1.02); EST Glomerular Filtration Rate 32 mL/min (>60); Est Glom Filt Rate - Afr Amer 38 mL/min (>60); Estimated Creatinine Clearance 34.23 ml/min; Glucose 100 mg/dL (74-106); Potassium 4.7 mmol/L (3.5-5.1); Sodium Level 138 mmol/L (136-145)
[2021-01-13 07:19] VITALS: PULSE 75; RESP 16; O2SAT 99
[2021-01-13] MEDS: Ipratropium/Albuterol Sulfate 3 ML AMPUL.NEB INHALATION ×2 (07:19→20:00)
[2021-01-13] MEDS: metroNIDAZOLE 500 MG Tablet PO ×3 (08:47→16:44)
[2021-01-13] MEDS: Multivitamins,Ther W-Minerals Tablet 1 TABLET PO (08:47)
[2021-01-13] MEDS: Gabapentin 100 MG Capsule PO ×2 (08:47→16:43)
[2021-01-13] MEDS: Juven (unflavored) Packet 1 PACKET PO ×2 (08:48→16:43)
[2021-01-13 10:00] VITALS: O2SAT 96
--- NOTE | 2021-01-13 10:44 | CASEMGMT ---
Social Work PHQ-9 and BIMS completed this date. Pt scored a 14 on BIMS, 9 on PHQ-9. Pt is not in counseling, was not certain if she is on medication for depression, but is open to it. Pt states is not certain if her mood is related to her health conditions, but does state once she is home she will feel better. Pt is on Cymbalta as per chart, communication to physician regarding pt being open to medication/change in medication should it be clinically indicated. PETER Jade
[2021-01-13] MEDS: Ferrous Sulfate 325 MG Tablet PO (12:15)
--- NOTE | 2021-01-13 14:19 | CASEMGMT ---
Plan of care meeting held on this date with pt and pt daughter Candi present. Pt is currently receiving PT/OT/ST and participating appropriately. Pt lives at home with her daughter Candi and son. Candi states that pt has had a few falls in the last year and Candi assists with all ADLs and IADLs. Pt does have a wheelchair, rollator, gait belt and shower chair and her son is currently installing a high rise commode. Candi is inquiring about a walker and therapist is recommending Wheeled Walker at discharge. Pt does have a wound and is receiving dressing changes. SW discussed with dgt and pt Medicare coverage and encouraged to call secondary to check on coverage of copay. Dgt expresses understanding. Pt and Candi are hopeful pt can return home at time of discharge. No discharge date set at this time, will continue with care plan. SW to follow for discharge planning and emotional support. MABEL Worthy
[2021-01-13 14:20] VITALS: BP 120/58; PULSE 64; RESP 18; TEMP 36.4; O2SAT 90
--- NOTE | 2021-01-13 16:41 | CHAPLAIN ---
Type of Pastoral Visit _x__ Initial Visit ___ Follow-up Visit ___ On-call Visit ___ General Patient Visit ___ Spiritual Assessment ___ Family Conference ___ Bereavement ___ Rapid Response ___ Code Blue ___ Other (describe below) Pastoral Care Referral From _x__ Patient ___ Family ___ Nurse ___ Physician ___ On Site Soil Evaluator ___ Drafting Engineer ___ Other (describe below) Sacrament/Intervention _x__ Active listening ___ Anointing ___ Taoist ___ Bereavement ___ Communion ___ Krysten exploration ___ _x__ Life review _x__ Prayer ___ Reconciliation ___ Sacrament of Sick _x__ Supportive presence ___ Wedding ___ Other (describe below) Pastoral Comments patient goal is to get home; pt was not able to give full details about her situation; pt states that her life enjoyments were working and time with family;
[2021-01-13] MEDS: Enoxaparin 80 MG/0.8 ML Syringe SC (16:42)
[2021-01-13 20:00] VITALS: PULSE 88; RESP 22
[2021-01-13] MEDS: buPROPion 75 MG Tablet PO (20:18)
[2021-01-13] MEDS: Gabapentin 300 MG Capsule PO (20:18)
[2021-01-13] MEDS: Pramipexole Di-HCl 0.25 MG Tablet PO (20:19)
[2021-01-14 02:04] VITALS: BP 124/61; PULSE 86; RESP 16; TEMP 36.6; O2SAT 96
--- NOTE | 2021-01-14 02:04 | NURSING ---
Patient c/o headache, neck pain and ABD pain. This Nurse went in to assess patient. Vitals within normal limits as charted. Changed ABD dressing again and repositioned ABD binder. Tylenol given for pain. Patient noted to have dark sticky stools. Note left for Dr. Duran.
[2021-01-14] MEDS: Acetaminophen 325 MG Tablet 650 MG PO ×3 (02:23→17:36)
[2021-01-14 05:19] VITALS: BP 122/55; PULSE 88; RESP 18; TEMP 36.7; O2SAT 98
[2021-01-14] MEDS: Menthol/Lanolin/Calamine/Znox 113 GM Tube 1 APPLIC TOPICAL ×3 (05:20→22:06)
[2021-01-14] MEDS: DULoxetine Hcl 60 MG Capsule PO ×2 (05:21→17:22)
[2021-01-14] MEDS: buPROPion 75 MG Tablet PO ×2 (05:21→17:23)
[2021-01-14] MEDS: Senna/Docusate Sodium 1 Tablet PO ×2 (05:21→17:23)
[2021-01-14] MEDS: Hydroxychloroquine 200 MG Tablet PO ×2 (05:21→17:25)
[2021-01-14] MEDS: amLODIPine 10 MG Tablet PO (05:21)
[2021-01-14] MEDS: Tolterodine Tartrate 4 MG CAP.SA PO (05:21)
[2021-01-14] MEDS: Nystatin Powder 15gm Bottle 1 APPLIC TOPICAL ×3 (05:21→22:07)
[2021-01-14] MEDS: Atenolol 25 MG Tablet PO ×2 (05:21→17:23)
[2021-01-14 07:23] VITALS: PULSE 88; RESP 18; O2SAT 98
[2021-01-14] MEDS: Ipratropium/Albuterol Sulfate 3 ML AMPUL.NEB INHALATION ×2 (07:23→18:41)
[2021-01-14] MEDS: metroNIDAZOLE 500 MG Tablet PO ×3 (09:34→17:21)
[2021-01-14] MEDS: Multivitamins,Ther W-Minerals Tablet 1 TABLET PO (09:34)
[2021-01-14] MEDS: Gabapentin 100 MG Capsule PO ×2 (09:34→17:21)
[2021-01-14] MEDS: Juven (unflavored) Packet 1 PACKET PO ×2 (09:34→17:20)
[2021-01-14] MEDS: Ferrous Sulfate 325 MG Tablet PO (11:25)
--- NOTE | 2021-01-14 13:45 | MDS.RN ---
Pain interview for ARELY 01/16/21 completed.
[2021-01-14] MEDS: 0.9% Normal Saline 1,000 ML 60 ML IV (13:54)
[2021-01-14 14:09] VITALS: BP 110/62; PULSE 86; RESP 19; TEMP 36.6; O2SAT 99
[2021-01-14] MEDS: Enoxaparin 80 MG/0.8 ML Syringe SC (17:25)
[2021-01-14 18:41] VITALS: PULSE 85; RESP 20
[2021-01-14] MEDS: Rizatriptan Benzoate 10 MG Tablet PO (22:05)
[2021-01-14] MEDS: Pramipexole Di-HCl 0.25 MG Tablet PO (22:07)
[2021-01-14] MEDS: Gabapentin 300 MG Capsule PO (22:07)
[2021-01-15 05:00] VITALS: BP 117/63; PULSE 92; RESP 18; O2SAT 97
[2021-01-15 05:46] LABS: POSITIVE COUNT YES
[2021-01-15 05:50] LABS: Hemoglobin 5.5 g/dL (12.0-15.0)
[2021-01-15] MEDS: Menthol/Lanolin/Calamine/Znox 113 GM Tube 1 APPLIC TOPICAL (06:32)
[2021-01-15] MEDS: Atenolol 25 MG Tablet PO (06:34)
[2021-01-15] MEDS: amLODIPine 10 MG Tablet PO (06:34)
[2021-01-15] MEDS: Tolterodine Tartrate 4 MG CAP.SA PO (06:35)
[2021-01-15] MEDS: Hydroxychloroquine 200 MG Tablet PO (06:35)
[2021-01-15] MEDS: DULoxetine Hcl 60 MG Capsule PO (06:35)
[2021-01-15] MEDS: Senna/Docusate Sodium 1 Tablet PO (06:35)
[2021-01-15] MEDS: Nystatin Powder 15gm Bottle 1 APPLIC TOPICAL (06:35)
[2021-01-15] MEDS: levoFLOXacin 500 MG Tablet PO (06:36)
[2021-01-15] MEDS: buPROPion 75 MG Tablet PO (06:36)
--- NOTE | 2021-01-15 07:19 | NURSING ---
Hgb 5.5 N/O type and cross, transfuse 2UPRBCs with 20mg IV lasix in between, repeat H&H 01/16/21
[2021-01-15 07:50] VITALS: PULSE 88; RESP 28; O2SAT 97
[2021-01-15] MEDS: Ipratropium/Albuterol Sulfate 3 ML AMPUL.NEB INHALATION (07:50)
[2021-01-15] MEDS: Juven (unflavored) Packet 1 PACKET PO (08:09)
[2021-01-15] MEDS: Gabapentin 100 MG Capsule PO (08:10)
[2021-01-15] MEDS: Multivitamins,Ther W-Minerals Tablet 1 TABLET PO (08:10)
[2021-01-15] MEDS: metroNIDAZOLE 500 MG Tablet PO (08:10)
--- NOTE | 2021-01-15 08:23 | NURSING ---
Addendum entered by Valery Ozuna 01/15/21 09:00: New Saline lock started d/t old site soiled by emesis, taken to ED at this time. Original Note: Sending pt to ER d/t pt vomitting dark brown emesis and having dark black loose stools. pt has not eaten any brkfst yet this AM. report given to MINH Smith & dr ramírez updated as well.
--- NOTE | 2021-01-15 10:18 | NURSING ---
LANEY Christopher updated on pt going to ED
--- NOTE | 2021-01-15 14:38 | DS.PCM_ITS ---
Providers Date of Admission: 01/09/21 Primary Care Physician: Dr. Candice Amado, Consultations 01/09/21 14:41 Consult: Onc/Wound/filling hand Routine Comment: Reason For Visit: ABDOMINAL WALL CELLULITIS Diagnosis Discharge Diagnosis (1) S/P small bowel resection: Status: Acute Code(s): Z90.49 - Acquired absence of other specified parts of digestive tract (2) Small bowel perforation: Status: Inactive Code(s): K63.1 - Perforation of intestine (nontraumatic) Medications at Discharge Home Medications atenolol 25 mg PO BID 06/09/15 sumatriptan succinate [Imitrex] 100 mg PO .X1 PRN MDD MIGRAINE 06/09/15 multivitamin with folic acid [Thera] 1 tab PO DAILY 01/29/18 ferrous sulfate 325 mg PO DAILY 10/19/19 solifenacin 10 mg PO DAILY 10/19/19 albuterol sulfate 1 - 2 puff INHALATION Q4H PRN PRN #1 inhaler 10/23/19 duloxetine 60 mg PO BID 12/31/20 gabapentin 100 mg PO BID 12/31/20 gabapentin 300 mg capsule 300 mg PO QHS cap 12/31/20 hydroxychloroquine 200 mg tablet 200 mg PO BID tab 12/31/20 ropinirole 0.5 mg tablet 0.5 mg PO QHS tab 12/31/20 acetaminophen [Tylenol] 650 mg PO Q6H PRN PRN 30 Days #30 tab 01/09/21 amlodipine 10 mg PO DAILY 01/09/21 enoxaparin [Lovenox] 80 mg SUBCUT Q12H 01/09/21 ipratropium-albuterol 3 ml INHALATION Q6HWA.RT 01/09/21 levofloxacin 500 mg PO Q48@0600 01/09/21 menthol-zinc oxide [Calmoseptine] 1 applic TOPICAL TID #71 g 01/09/21 metronidazole 500 mg PO TID 01/09/21 nystatin 1 applic TOPICAL TID 01/09/21 polyethylene glycol 3350 17 g PO DAILY PRN 30 Days #30 ea 01/09/21 sennosides-docusate sodium [Stool Softener-Stimulant Laxat] 1 tab-cap PO BID 01/09/21 ucemzsge-vglrxfnmt-zfhxyjk HMB [Jonathan] 1 ea PO BID 01/15/21 tolterodine [Detrol LA] 4 mg PO DAILY 01/15/21 Hospital Course Operations None Procedures None Summary of Care Provided Minutes Spent on Discharge: 30 Hospital Course: 85 year old female with below past medical history hospitalized abdominal abscess, status post laparotomy, incision, drainage, admitted to TCU with debility, here for rehabilitation, strengthening, prior to discharge home. 01/15/2021 Resident Hemoglobin 5.5, planned for 2 unit PRBC transfusion. Resident started vomiting large amounts of coffee ground emesis. 01/15/2021 Discharge to [facility] Emergency Department for evaluation, admission to Hospital. Physical Exam Const alert and oriented x3 General Appearance: cooperative HEENT normocephalic Eyes PERRL and EOMs intact bilaterally Neck supple, no JVD and no carotid bruits Resp normal respiratory effort, normal air movement and clear to auscultation bilaterally Cardio regular rate and regular rhythm GI normal to inspection, nondistended, normoactive bowel sounds, non-tender and non-distended Extremity normal capillary refill General Extremity: Negative for edema Skin no rashes or lesions noted General Skin Exam: no breakdown Psych affect normal Appearance: appropriate Weight / BMI Weight Weight: 84.912 kg Body Mass Index (BMI) 36.6 ABG / Lab / Microbiology Data Result Diagrams: 01/15/21 05:15 01/13/21 05:15 Laboratory: Laboratory Results - last 24 hr 01/15/21 01/15/21 05:15 07:00 Hgb 5.5 L* Hct 18.0 L Blood Type Cancelled Antibody Screen Cancelled Crossmatch See Detail D/C Instructions Discharge Activity: Return to Normal Activity Weight Bearing Status: Weight bearing as tolerated Call your doctor if you observe: Fever of 101 or Higher, Inability to urinate, Inability to have a bowel movement, Shortness of breath, Fainting spells, Chest pain, Calf discomfort and Uncontrolled pain Additional Instructions: 01/15/2021 Discharge to [facility] Emergency Department for evaluation, admission to Hospital. Please Follow Up With: Candice Amado DO When: 1 week. Meaningful Use Info Meaningful Use Diagnoses (Choose all that apply): None applicable Discharge Plan Admission Admit Date/Time: 01/09/21 01:45 Primary Reason for Your Visit: Debility Attending Provider: Neel Duran Chi Primary Care Provider: Candice Amado Instructions Additional Instructions / Restrictions: 01/15/2021 Discharge to [facility] Emergency Department for evaluation, admission to Hospital. Discharge Orders/Prescriptions Prescriptions: No Action gabapentin 300 mg capsule 300 mg PO QHS RF: 0 ropinirole 0.5 mg tablet 0.5 mg PO QHS RF: 0 hydroxychloroquine 200 mg tablet 200 mg PO BID RF: 0 sumatriptan succinate [Imitrex] 100 MG tablet 100 mg PO .X1 PRN MDD MIGRAINE RF: 0 atenolol 25 MG tablet 25 mg PO BID RF: 0 multivitamin with folic acid [Thera] 1 TABLET tablet 1 tab PO DAILY RF: 0 ferrous sulfate 325 MG tablet 325 mg PO DAILY RF: 0 solifenacin 10 MG tablet 10 mg PO DAILY RF: 0 albuterol sulfate 1 PUFF inhaler 1 - 2 puff inhalation Q4H PRN PRN (Reason: Sob &/Or Wheezing) Qty: 1 RF: 0 gabapentin 100 mg capsule 100 mg PO BID RF: 0 duloxetine 60 mg capsule,delayed release(DR/EC) 60 mg PO BID RF: 0 polyethylene glycol 3350 17 gram Powder In Packet 17 g PO DAILY PRN (Reason: constipation) 30 Days Qty: 30 RF: 0 Calmoseptine 0.44-20.6 % Ointment 1 applic topical TID Qty: 71 RF: 0 acetaminophen [Tylenol] 325 mg Tablet 650 mg PO Q6H PRN PRN (Reason: Pain Score 1-10/Temp > 100.7 F) 30 Days Qty: 30 RF: 0 ipratropium-albuterol 0.5 mg-3 mg(2.5 mg base)/3 mL solution for nebulization 3 ml inhalation Q6HWA.RT RF: 0 metronidazole 500 mg tablet 500 mg PO TID RF: 0 amlodipine 10 mg tablet 10 mg PO DAILY RF: 0 nystatin 1 APPLIC powder 1 applic TOPICAL TID RF: 0 levofloxacin 500 mg tablet 500 mg PO Q48@0600 RF: 0 enoxaparin [Lovenox] 80 mg/0.8 mL syringe 80 mg subcut Q12H RF: 0 sennosides-docusate sodium [Stool Softener-Stimulant Laxat] 8.6-50 mg tablet 1 tab-cap PO BID RF: 0 tolterodine [Detrol LA] 4 mg Capsule,Extended Release 24hr 4 mg PO DAILY RF: 0 Jonathan 7-7-1.5 gram Powder In Packet 1 ea PO BID RF: 0 Referrals / Follow Up: Candice Amado DO [Primary Care Provider] - Disposition Disposition (needs filled in before D/C Order can be placed): Acute Care [facility]
--- NOTE | 2021-01-21 09:01 | MDS.RN ---
Information for the mds was obtained from review of the clinical record, interview of resident, staff, and direct observation of resident's care.
== END 2021-01-15 12:23 | disposition short-term general hospital (02) | DRG 949 ==
PROVIDERS: Internal Medicine; Admitting Provider Family Medicine Geriatric Medicine; PCP Internal Medicine; Visit Provider Family Medicine Geriatric Medicine
DX: Z48.815 Encounter for surgical aftercare following surgery on the digestive system (principal); L02.211 Cutaneous abscess of abdominal wall; L03.311 Cellulitis of abdominal wall; Z23 Encounter for immunization; H91.93 Unspecified hearing loss, bilateral; M15.9 Polyosteoarthritis, unspecified; G89.29 Other chronic pain; I12.9 Hypertensive chronic kidney disease with stage 1 through stage 4 chronic kidney disease, or unspecified chronic kidney disease; N18.31 Chronic kidney disease, stage 3a; M06.9 Rheumatoid arthritis, unspecified; M47.816 Spondylosis without myelopathy or radiculopathy, lumbar region; J45.20 Mild intermittent asthma, uncomplicated; K44.9 Diaphragmatic hernia without obstruction or gangrene; D50.0 Iron deficiency anemia secondary to blood loss (chronic); R32 Unspecified urinary incontinence; Z86.718 Personal history of other venous thrombosis and embolism; Z79.899 Other long term (current) drug therapy; R11.10 Vomiting, unspecified
CPT/HCPCS: 36415; 80048; 85014; 85018; 85025; 86920; 86922; 87635; 92507; 92523; 92610; 94640; 94668; 97110; 97163; 97166; 97530; 97535; 97802; G0009; J7030; U0005; 90670; A4216; U0003

== ENCOUNTER 2021-01-15 08:55 | Inpatient (IN) | payer MEDICARE, BC, SELFPAY ==
[2021-01-15] VITALS (25 sets, daily range): BP systolic 83–128; BP diastolic 41–93; PULSE 79–89; RESP 18–27; TEMP 36–37.4; O2SAT 92–100; BMI 38.4; BMI 38.1
--- NOTE | 2021-01-15 09:16 | EDS_ITS ---
HPI HPI - GI History of Present Illness Chief Complaint: GI Bleed Detail of Chief Complaint: Patient with coffee ground emesis today x1 Informant: patient Nausea/Vomiting/Emesis GI Symptom: Positive for Nausea and Vomiting Quality: Positive for Coffee ground Diarrhea/Melena/Hematochezia GI Symptom: Positive for Melena Narrative Narrative: Patient with recent abdominal surgery and in the transitional care unit currently. Had one episode of coffee-ground emesis this morning. Patient also was noted to have a low hemoglobin of 5.5. Patient also noted to have black stools. Patient currently on Lovenox subcutaneously. Patient denies abdominal pain. She denies chest pain or shortness of breath. Patient does have a prior history of DVT. Patient is a poor historian to the informant. Prior similar symptoms: No PFSH PFSH Medical History (Updated 01/15/21 @ 10:[address] Veronica Maurer, ) Abnormal bruising Anxiety Chronic neck and back pain Difficulty balancing when standing DVT (deep venous thrombosis) Hearing loss, left Hearing loss, right Incontinence Knee pain Migraines Non-smoker On home oxygen therapy Polyosteoarthritis Polyosteoarthritis Severe headache Shoulder pain SOB (shortness of breath) Home Medications atenolol 25 mg PO BID 06/09/15 [History Last Taken 12/31/20] sumatriptan succinate [Imitrex] 100 mg PO .X1 PRN MDD MIGRAINE 06/09/15 [History Last Taken Unknown] multivitamin with folic acid [Thera] 1 tab PO DAILY 01/29/18 [History Last Taken 2 Weeks Ago ~12/17/20] ferrous sulfate 325 mg PO DAILY 10/19/19 [History Last Taken 12/31/20] solifenacin 10 mg PO DAILY 10/19/19 [History Last Taken 12/31/20] albuterol sulfate 1 - 2 puff INHALATION Q4H PRN PRN #1 inhaler 10/23/19 [Rx Last Taken Unknown] duloxetine 60 mg PO BID 12/31/20 [History Last Taken 12/31/20] gabapentin 100 mg PO BID 12/31/20 [History Last Taken 12/31/20] gabapentin 300 mg capsule 300 mg PO QHS cap 12/31/20 [History Last Taken 12/30/20] hydroxychloroquine 200 mg tablet 200 mg PO BID tab 12/31/20 [History Last Taken 12/31/20] ropinirole 0.5 mg tablet 0.5 mg PO QHS tab 12/31/20 [History Last Taken 12/30/20] acetaminophen [Tylenol] 650 mg PO Q6H PRN PRN 30 Days #30 tab 01/09/21 [Rx Last Taken Unknown] amlodipine 10 mg PO DAILY 01/09/21 [History Last Taken Unknown] enoxaparin [Lovenox] 80 mg SUBCUT Q12H 01/09/21 [History Last Taken Unknown] ipratropium-albuterol 3 ml INHALATION Q6HWA.RT 01/09/21 [History Last Taken Unknown] levofloxacin 500 mg PO Q48@0600 01/09/21 [History Last Taken Unknown] menthol-zinc oxide [Calmoseptine] 1 applic TOPICAL TID #71 g 01/09/21 [Rx Last Taken Unknown] metronidazole 500 mg PO TID 01/09/21 [History Last Taken Unknown] nystatin 1 applic TOPICAL TID 01/09/21 [History Last Taken Unknown] polyethylene glycol 3350 17 g PO DAILY PRN 30 Days #30 ea 01/09/21 [Rx Last Taken Unknown] sennosides-docusate sodium [Stool Softener-Stimulant Laxat] 1 tab-cap PO BID 01/09/21 [History Last Taken Unknown] tolterodine [Detrol LA] 4 mg PO DAILY 01/15/21 [History Last Taken Unknown] Allergy/AdvReac Type Severity Reaction Status Date / Time No Known Allergies Allergy Verified 01/15/21 09:17 Family History Mother No significant active problems Other Headache Surgical History (Updated 01/15/21 @ 09:04 by Kymberly Sandhu) History of appendectomy History of back surgery History of cholecystectomy History of foot surgery History of hernia surgery History of surgery on wrist S/P small bowel resection Small bowel perforation Social History household members: family housing: house Smoking Status: Never smoker alcohol intake: never ROS ROS ED Constitutional Constitutional ED: Reports systems reviewed and no addt'l complaints, except as documented; Denies body ache(s), change in weight or chills Eyes Eyes: Denies acute decrease in peripheral vision, change in vision, double vision or loss of vision ENT ENT ED: Reports none; Denies ear pain, lip swelling, loss taste/smell, neck pain, otalgia or sore throat Cardiovascular Cardiovascular: Reports none; Denies abdominal pain, chest pain with activity, leg edema, lightheadedness, palpitations, rapid heart rate or syncope Respiratory/Chest Respiratory/Chest: Reports none; Denies change in mental status, dry cough, dyspnea, hemoptysis, shortness of breath at rest or shortness of breath with exertion Gastrointestinal Gastrointestinal: Reports none, melena, nausea and vomiting; Denies abdominal pain, change in stool character, diarrhea, hematemesis, hematochezia or rectal bleeding Genitourinary Genitourinary ED: Reports none; Denies abdominal discomfort, anuria, dysuria, genital pain or polyuria Musculoskeletal Musculoskeletal: Reports none; Denies arthralgias, back pain, difficulty walking, extremity pain, muscle weakness or myalgias Integumentary Reports none; Denies abscess or rash Neurologic Neurologic: Reports none; Denies abnormal gait, confusion, focal weakness, frequent falls, headache(s), loss of vision, numbness, paresthesias, radicular pain, vertigo or weakness Psychiatric Psychiatric: Reports systems reviewed and no addt'l complaints, except as documented and none; Denies behavioral changes, confusion, difficulty concen trating, hallucinations, suicidal ideation, tactile hallucinations or visual hallucinations Endocrine Endocrinology: Denies none, cold intolerance, excessive sweating, fatigue or heat intolerance Hematologic/Lymphatic Hematologic/Lymphatic: Reports none; Denies anemia, easy bleeding or easy bruising Allergic/Immunologic Allergic/Immunologic ED: Denies as per HPI, none, lip swelling, mouth swelling, throat swelling, tongue swelling or hives EXAM Physical Exam Const Vital Signs: 01/15/21 08:56 01/15/21 09:02 01/15/21 09:43 Temperature 97.6 F L 97.6 F L 97.5 F L Temperature Source Temporal Temporal Temporal Pulse Rate 85 84 82 Respiratory Rate 27 H 27 H 24 H Blood Pressure 127/64 H 114/93 H 101/70 Blood Pressure Mean 85 100 80 Blood Pressure Source Monitor Blood Pressure Position Semi-Fowlers Blood Pressure Location Left Arm Pulse Ox 100 100 92 Oxygen Delivery Method Room Air Room Air Nasal Cannula Oxygen Flow Rate (L/min) 2 06/11/21 09:50 01/15/21 10:00 01/15/21 10:01 Temperature 97.6 F L 96.9 F L Temperature Source Temporal Temporal Pulse Rate 82 80 81 Respiratory Rate 24 H 24 H 26 H Blood Pressure 107/41 L 116/66 116/66 Blood Pressure Mean 63 82 82 Blood Pressure Source Monitor Blood Pressure Position Semi-Fowlers Blood Pressure Location Right Arm Pulse Ox 100 100 100 Oxygen Delivery Method Nasal Cannula Nasal Cannula Nasal Cannula Oxygen Flow Rate (L/min) 2 2 2 01/15/21 10:02 Temperature 96.9 F L Temperature Source Temporal Pulse Rate 82 Respiratory Rate 25 H Blood Pressure 106/54 L Blood Pressure Mean 71 Blood Pressure Source Monitor Blood Pressure Position Semi-Fowlers Blood Pressure Location Right Arm Pulse Ox 100 Oxygen Delivery Method Nasal Cannula Oxygen Flow Rate (L/min) 2 Positive well nourished and well developed General Appearance ED: well developed and NAD HEENT Reports TM's clear and moist mucous membranes normocephalic and atraumatic; Negative for trauma or tenderness Tympanic Membrane ED: Yes TM's clear Eyes PERRL and EOMs intact bilaterally General Eye ED: Negative for pale conjunctiva or scleral icterus Neck no lymphadenopathy, supple and no JVD General: Negative for tenderness Chest Wall inspection of chest normal and palpation of chest normal Chest: Negative for tenderness Resp normal respiratory effort and clear to auscultation bilaterally Effort and Inspection: Negative for respiratory distress or pain with movement Auscultation: Negative for rhonchi, wheezes or diminished lung sounds Cardio regular rate, regular rhythm, S1 normal heart sound, S2 normal heart sound and no murmurs Peripheral Pulses: pulses 2+ throughout GI normal to inspection, nondistended, normoactive bowel sounds, soft to palpation, non-tender, non-distended and no masses GI Narrative: Patient with mild diffuse tenderness on exam. She has a clean dressing applied over surgical wound. On rectal exam she did have black stool stool that had a greenish tint to it. Hemoccult is pending. Back/Spine no CVA tenderness and no thoracic nor lumbar tenderness Extremity normal to inspection General Extremety ED: Negative for edema General Extremity: Negative for edema Neuro oriented x3, CN's II-XII intact bilaterally, no sensory deficits noted and gait normal Sensorium / Orientation: awake, alert, oriented to person, oriented to place and oriented to time Motor Exam: strength 5/5 throughout and strength abnormal Psych mental status grossly normal Skin no rashes or lesions noted and no wounds MDM MDM MDM Narrative Medical decision making narrative: Patient with an upper GI bleed. She was typed and crossed for 2 units packed red cells. Case discussed with patient's general surgeon Dr. Prema Saucedo who knows the patient well and performed patient's initial surgery. Patient will be admitted to hospitalist and will be evaluated by surgeon for possible EGD today. Patient was started on Protonix drip. She was given Zofran. Lab Data Attestation: I reviewed the patient's lab results. Labs: Laboratory Results - last 24 hr 01/15/21 01/15/21 01/15/21 07:00 09:25 09:25 WBC 9.1 RBC 1.80 L Hgb 5.4 L* Hct 17.7 L MCV 98.3 MCH 30.0 MCHC 30.5 L RDW Std Deviation 73.0 H RDW Coeff of Laxmi 21.8 H Plt Count 253 MPV 9.6 Immature Gran % (Auto) 4.400 H Neut % (Auto) 69.8 Lymph % (Auto) 14.8 L [place] % (Auto) 9.2 Eos % (Auto) 1.4 Baso % (Auto) 0.4 Absolute Neuts (auto) 6.4 Absolute Lymphs (auto) 1.35 Nucleated RBC % 0.7 Differential Comment COMMENT Diff Path Review May foll Anisocytosis 1+ Sodium 143 Potassium 5.0 Chloride 115 H Carbon Dioxide 23.0 Anion Gap 5 BUN 91 H Creatinine 1.57 H Estim Creat Clear Calc 19.16 Est GFR (MDRD) Af Amer 40 L Est GFR (MDRD) Non-Af 33 L BUN/Creatinine Ratio 58.0 H Glucose 132 H Lactic Acid Calcium 8.5 Lipase 111 Blood Type A POSITIVE Antibody Screen NEGATIVE Crossmatch See Detail 01/15/21 09:25 WBC RBC Hgb Hct MCV MCH MCHC RDW Std Deviation RDW Coeff of Laxmi Plt Count MPV Immature Gran % (Auto) Neut % (Auto) Lymph % (Auto) [place] % (Auto) Eos % (Auto) Baso % (Auto) Absolute Neuts (auto) Absolute Lymphs (auto) Nucleated RBC % Differential Comment Diff Path Review Anisocytosis Sodium Potassium Chloride Carbon Dioxide Anion Gap BUN Creatinine Estim Creat Clear Calc Est GFR (MDRD) Af Amer Est GFR (MDRD) Non-Af BUN/Creatinine Ratio Glucose Lactic Acid 1.7 Calcium Lipase Blood Type Antibody Screen Crossmatch Critical Care Time Critical Care Time: Yes Critical care time (excluding procedures): Discussing w/Patient &/or Family/Herpetology Teacher, Discussing w/Consultants, Arranging Admission or Transfer, Performing Direct Patient Care at Bedside and - (35) Discharge Plan Triage Chief Complaint: GI Bleed ED Provider: Veronica Maurer Dx/Rx/DC Orders Clinical Impression: Acute upper gastrointestinal bleeding, Anemia Prescriptions: No Action gabapentin 300 mg capsule 300 mg PO QHS RF: 0 ropinirole 0.5 mg tablet 0.5 mg PO QHS RF: 0 hydroxychloroquine 200 mg tablet 200 mg PO BID RF: 0 sumatriptan succinate [Imitrex] 100 MG tablet 100 mg PO .X1 PRN MDD MIGRAINE RF: 0 atenolol 25 MG tablet 25 mg PO BID RF: 0 multivitamin with folic acid [Thera] 1 TABLET tablet 1 tab PO DAILY RF: 0 ferrous sulfate 325 MG tablet 325 mg PO DAILY RF: 0 solifenacin 10 MG tablet 10 mg PO DAILY RF: 0 albuterol sulfate 1 PUFF inhaler 1 - 2 puff inhalation Q4H PRN PRN (Reason: Sob &/Or Wheezing) Qty: 1 RF: 0 gabapentin 100 mg capsule 100 mg PO BID RF: 0 duloxetine 60 mg capsule,delayed release(DR/EC) 60 mg PO BID RF: 0 polyethylene glycol 3350 17 gram Powder In Packet 17 g PO DAILY PRN (Reason: constipation) 30 Days Qty: 30 RF: 0 Calmoseptine 0.44-20.6 % Ointment 1 applic topical TID Qty: 71 RF: 0 acetaminophen [Tylenol] 325 mg Tablet 650 mg PO Q6H PRN PRN (Reason: Pain Score 1-10/Temp > 100.7 F) 30 Days Qty: 30 RF: 0 ipratropium-albuterol 0.5 mg-3 mg(2.5 mg base)/3 mL solution for nebulization 3 ml inhalation Q6HWA.RT RF: 0 metronidazole 500 mg tablet 500 mg PO TID RF: 0 amlodipine 10 mg tablet 10 mg PO DAILY RF: 0 nystatin 1 APPLIC powder 1 applic TOPICAL TID RF: 0 levofloxacin 500 mg tablet 500 mg PO Q48@0600 RF: 0 enoxaparin [Lovenox] 80 mg/0.8 mL syringe 80 mg subcut Q12H RF: 0 sennosides-docusate sodium [Stool Softener-Stimulant Laxat] 8.6-50 mg tablet 1 tab-cap PO BID RF: 0 tolterodine [Detrol LA] 4 mg Capsule,Extended Release 24hr 4 mg PO DAILY RF: 0 Primary Care Provider: Candice Amado Referrals: Candice Amado DO [Primary Care Provider] - Disposition Disposition: Acute Care [facility]
[2021-01-15] MEDS: 0.9% Normal Saline 1,000 ML 125 ML IV (09:29)
[2021-01-15] MEDS: Ondansetron 4 MG/2 ML Vial IV (09:29)
[2021-01-15 09:32] LABS: Absolute Lymphocyte Count 1.35 X10^3/uL (0.83-4.51); Absolute Neutrophil Count 6.4 X10^3/uL (2.0-7.7); Basophil# 0.04 X10^3/uL; Basophil% 0.4 % (0-1); Eosinophil# 0.13 X10^3/uL; Eosinophils% 1.4 % (0-5); Hematocrit 17.7 % (37-47); Lymphocyte # 1.35 X10^3/ul (0.83-4.51); Lymphocyte % 14.8 % (19-41); Mean Corp Hgb Conc 30.5 g/dL (32-36); Mean Corpuscular Volume 98.3 fL (81-99); Mean Platelet Vol. 9.6 fl (6.2-12.0); Monocyte# 0.84 X10^3/uL; Monocyte% 9.2 % (0-10); NRBC Flagged by Analyzer 0.7 % (0-5); Neutrophil # 6.35 X10^3/uL (2.7-7.7); Neutrophil % 69.8 % (47-70); POSITIVE COUNT YES; POSITIVE MORPHOLOGY YES; Platelet Count 253 K/mm3 (150-450); RBC Distribution Width CV 21.8 % (11.6-14.6); White Blood Count 9.1 K/mm3 (4.4-11.0)
[2021-01-15 09:34] LABS: Hemoglobin 5.4 g/dL (12.0-15.0)
[2021-01-15 09:35] LABS: Differential Indicated SCAN CRITERIA MET
[2021-01-15 09:47] LABS: Anion Gap 5 (5-15); BUN 91 mg/dL (7-18); Calcium,Total 8.5 mg/dL (8.5-10.1); Chloride 115 mmol/L (98-107); Creatinine, Serum 1.57 mg/dL (0.55-1.02); EST Glomerular Filtration Rate 33 mL/min (>60); Est Glom Filt Rate - Afr Amer 40 mL/min (>60); Estimated Creatinine Clearance 19.16 ml/min; Glucose 132 mg/dL (74-106); Lipase 111 U/L (73-393); Sodium Level 143 mmol/L (136-145)
[2021-01-15 09:52] LABS: Anisocytosis 1+
[2021-01-15 09:58] LABS: Lactic Acid 1.7 mmol/L (0.4-1.9)
--- NOTE | 2021-01-15 10:21 | EKG12_ITS ---
Test Reason : GI BLEED Blood Pressure : / mmHG Vent. Rate : 082 BPM Atrial Rate : 082 BPM P-R Int : 178 ms QRS Dur : 080 ms QT Int : 370 ms P-R-T Axes : 028 -39 000 degrees QTc Int : 432 ms Normal sinus rhythm Left axis deviation Inferior infarct , age undetermined Anterior infarct , age undetermined Abnormal ECG Confirmed by HONORIO MONTANEZ, RACHELE ([id number]), film editor supervisor HOLLY FLOR ([id number]) on 01/18/2021 1:58:25 PM Referred By: JUAN CARLOS Confirmed By:RACHELE OLMEDO MD
--- NOTE | 2021-01-15 10:45 | PCM.HP.STD ---
HPI - General General Date of Admission: 01/15/21 HPI Narrative LOLLY HUSAIN, is a 85 F who presents from the TCU with a GI bleed. She was found to have coffee-ground emesis this morning as well as dark stools. She was transferred to the ER and started on 2 units of blood product. She denies any lightheadedness or dizziness. No abdominal pain. She does have some nausea. She is on twice daily Lovenox for history of DVTs. She is a poor historian and does not provide much insight as to how she is feeling or why she is here. She did recently have surgery for a subcutaneous abscess from a previous surgery for ventral hernia with mesh repair. She had the wound aspirated by Dr. Shore and it demonstrated Bacteroides, Staphylococcus, and Klebsiella. She was taken to the OR on 01/05/2021 for debridement. Of note she has completed her 5-day course of Levaquin and Flagyl per recommendation of the infectious disease physician. [facility] Medical History (Updated 01/15/21 @ 11:[address] Lawson Biggs MD) Abnormal bruising Anxiety Chronic neck and back pain Difficulty balancing when standing DVT (deep venous thrombosis) Hearing loss, left Hearing loss, right Incontinence Knee pain Migraines Non-smoker On home oxygen therapy Polyosteoarthritis Polyosteoarthritis Severe headache Shoulder pain SOB (shortness of breath) Home Medications atenolol 25 mg PO BID 06/09/15 [History Last Taken 12/31/20] sumatriptan succinate [Imitrex] 100 mg PO .X1 PRN MDD MIGRAINE 06/09/15 [History Last Taken Unknown] multivitamin with folic acid [Thera] 1 tab PO DAILY 01/29/18 [History Last Taken 01/15/21 08:10] ferrous sulfate 325 mg PO DAILY 10/19/19 [History Last Taken 12/31/20] solifenacin 10 mg PO DAILY 10/19/19 [History Last Taken 12/31/20] albuterol sulfate 1 - 2 puff INHALATION Q4H PRN PRN #1 inhaler 10/23/19 [Rx Last Taken Unknown] duloxetine 60 mg PO BID 12/31/20 [History Last Taken 12/31/20] gabapentin 100 mg PO BID 12/31/20 [History Last Taken 01/15/21 08:10] gabapentin 300 mg capsule 300 mg PO QHS cap 12/31/20 [History Last Taken 12/30/20] hydroxychloroquine 200 mg tablet 200 mg PO BID tab 12/31/20 [History Last Taken 12/31/20] ropinirole 0.5 mg tablet 0.5 mg PO QHS tab 12/31/20 [History Last Taken 12/30/20] acetaminophen [Tylenol] 650 mg PO Q6H PRN PRN 30 Days #30 tab 01/09/21 [Rx Last Taken Unknown] amlodipine 10 mg PO DAILY 01/09/21 [History Last Taken Unknown] enoxaparin [Lovenox] 80 mg SUBCUT Q12H 01/09/21 [History Last Taken Unknown] ipratropium-albuterol 3 ml INHALATION Q6HWA.RT 01/09/21 [History Last Taken Unknown] levofloxacin 500 mg PO Q48@0600 01/09/21 [History Last Taken Unknown] menthol-zinc oxide [Calmoseptine] 1 applic TOPICAL TID #71 g 01/09/21 [Rx Last Taken Unknown] metronidazole 500 mg PO TID 01/09/21 [History Last Taken 01/15/21 08:10] nystatin 1 applic TOPICAL TID 01/09/21 [History Last Taken Unknown] polyethylene glycol 3350 17 g PO DAILY PRN 30 Days #30 ea 01/09/21 [Rx Last Taken Unknown] sennosides-docusate sodium [Stool Softener-Stimulant Laxat] 1 tab-cap PO BID 01/09/21 [History Last Taken Unknown] bxannzew-sxnifwkes-psqbrol HMB [Jonathan] 1 ea PO BID 01/15/21 [History Last Taken 01/15/21 08:09] tolterodine [Detrol LA] 4 mg PO DAILY 01/15/21 [History Last Taken Unknown] Allergy/AdvReac Type Severity Reaction Status Date / Time No Known Allergies Allergy Verified 01/15/21 09:17 Family History Mother No significant active problems Other Headache Surgical History (Updated 01/15/21 @ 09:04 by Kymberly Sandhu) History of appendectomy History of back surgery History of cholecystectomy History of foot surgery History of hernia surgery History of surgery on wrist S/P small bowel resection Small bowel perforation Social History household members: family housing: house Smoking Status: Never smoker alcohol intake: never ROS Constitutional Constitutional: Denies chills, fatigue, fever(s) or malaise Eyes Eyes: Denies blurry vision ENT HEENT: Denies headache(s) or nasal discharge Cardiovascular Cardiovascular: Denies chest pain, dyspnea on exertion or syncope Respiratory/Chest Respiratory/Chest: Denies cough, shortness of breath at rest or shortness of breath with exertion Gastrointestinal Gastrointestinal: Reports abdominal pain; Denies constipation, diarrhea, nausea or vomiting Genitourinary Genitourinary: Denies dysuria Neurologic Neurologic: Denies focal weakness, numbness or tremor(s) Psychiatric Psychiatric: Denies anxiety or depression Vital Signs Vital Signs Vital Signs: 01/15/21 08:56 01/15/21 09:02 01/15/21 09:43 Temperature 97.6 F L 97.6 F L 97.5 F L Temperature Source Temporal Temporal Temporal Pulse Rate 85 84 82 Respiratory Rate 27 H 27 H 24 H Blood Pressure 127/64 H 114/93 H 101/70 Blood Pressure Mean 85 100 80 Blood Pressure Source Monitor Blood Pressure Position Semi-Fowlers Blood Pressure Location Left Arm Pulse Ox 100 100 92 Oxygen Delivery Method Room Air Room Air Nasal Cannula Oxygen Flow Rate (L/min) 2 01/15/21 09:50 01/15/21 10:00 01/15/21 10:01 Temperature 97.6 F L 96.9 F L Temperature Source Temporal Temporal Pulse Rate 82 80 81 Respiratory Rate 24 H 24 H 26 H Blood Pressure 107/41 L 116/66 116/66 Blood Pressure Mean 63 82 82 Blood Pressure Source Monitor Blood Pressure Position Semi-Fowlers Blood Pressure Location Right Arm Pulse Ox 100 100 100 Oxygen Delivery Method Nasal Cannula Nasal Cannula Nasal Cannula Oxygen Flow Rate (L/min) 2 2 2 01/15/21 10:02 Temperature 96.9 F L Temperature Source Temporal Pulse Rate 82 Respiratory Rate 25 H Blood Pressure 106/54 L Blood Pressure Mean 71 Blood Pressure Source Monitor Blood Pressure Position Semi-Fowlers Blood Pressure Location Right Arm Pulse Ox 100 Oxygen Delivery Method Nasal Cannula Oxygen Flow Rate (L/min) 2 Weight Weight: 196 lb 13.965 oz Body Mass Index (BMI) 38.4 Physical Exam Const alert and no apparent distress General Appearance: cooperative HEENT normocephalic Mouth: dry mucous membranes Eyes PERRL, EOMs intact bilaterally and conjunctivae normal Neck supple and no JVD Resp normal respiratory effort, no retractions, no use of accessory muscles and clear to auscultation bilaterally Auscultation: Negative for crackles, rales, rhonchi or wheezes Cardio regular rate, regular rhythm, S1 normal heart sound, S2 normal heart sound and no murmurs GI soft to palpation, non-tender and non-distended; Negative for hepatosplenomegaly Extremity no clubbing, cyanosis or edema Skin no rashes or lesions noted Neuro no focal motor deficits and no sensory deficits noted Psych affect normal Appearance: appropriate Results Lab / Micro Data Result Diagrams: 01/15/21 09:25 01/15/21 09:25 Labs: Laboratory Results - last 24 hr 01/15/21 01/15/21 01/15/21 07:00 09:25 09:25 WBC 9.1 RBC 1.80 L Hgb 5.4 L* Hct 17.7 L MCV 98.3 MCH 30.0 MCHC 30.5 L RDW Std Deviation 73.0 H RDW Coeff of Laxmi 21.8 H Plt Count 253 MPV 9.6 Immature Gran % (Auto) 4.400 H Neut % (Auto) 69.8 Lymph % (Auto) 14.8 L [place] % (Auto) 9.2 Eos % (Auto) 1.4 Baso % (Auto) 0.4 Absolute Neuts (auto) 6.4 Absolute Lymphs (auto) 1.35 Nucleated RBC % 0.7 Differential Comment COMMENT Diff Path Review May foll Anisocytosis 1+ Sodium 143 Potassium 5.0 Chloride 115 H Carbon Dioxide 23.0 Anion Gap 5 BUN 91 H Creatinine 1.57 H Estim Creat Clear Calc 19.16 Est GFR (MDRD) Af Amer 40 L Est GFR (MDRD) Non-Af 33 L BUN/Creatinine Ratio 58.0 H Glucose 132 H Lactic Acid Calcium 8.5 Lipase 111 Blood Type A POSITIVE Antibody Screen NEGATIVE Crossmatch See Detail 01/15/21 09:25 WBC RBC Hgb Hct MCV MCH MCHC RDW Std Deviation RDW Coeff of Laxmi Plt Count MPV Immature Gran % (Auto) Neut % (Auto) Lymph % (Auto) [place] % (Auto) Eos % (Auto) Baso % (Auto) Absolute Neuts (auto) Absolute Lymphs (auto) Nucleated RBC % Differential Comment Diff Path Review Anisocytosis Sodium Potassium Chloride Carbon Dioxide Anion Gap BUN Creatinine Estim Creat Clear Calc Est GFR (MDRD) Af Amer Est GFR (MDRD) Non-Af BUN/Creatinine Ratio Glucose Lactic Acid 1.7 Calcium Lipase Blood Type Antibody Screen Crossmatch Micro: Microbiology 01/15/21 09:15 Stool Occult Blood (WILLIE) - Final Stool Occult Blood Positive Assessment & Plan Assessment/Plan (1) Acute upper gastrointestinal bleeding: (2) Anemia: QUALIFIERS: Anemia type: due to chronic kidney disease Chronic kidney disease stage: stage 3 (moderate) Chronic kidney disease stage 3 subtype: stage 3b (GFR 30-44) Qualified Code(s): N18.32 - Chronic kidney disease, stage 3b; 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 Upper GI bleed with acute on chronic anemia -We will place on Protonix drip and hold her Lovenox -Place her on SCDs -Consult general surgery -N.p.o. -EGD demonstrated an adherent clot to an ulcer, will continue with PPI 2. HTN/HLD -We will hold her blood pressure medications secondary to some mild hypotension -Continue with PRBCs 3. 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 Rheumatoid arthritis -We will verify home medications prior to restarting 5. Depression/anxiety/migraines -We will verify home medications prior to restarting anything DVT: SCDs Charges/Coding Visit Charges Inpatient E&M: 70593 Init Hosp L3
--- NOTE | 2021-01-15 10:47 | ED.RN ---
CALLED PHARMACY TO CLARIFY ADMINISTRATION OF PROTAMINE SULFATE IV PUSH. MED HAS TO BE PUSHED OVER NO LESS THAN 10 MINUTES PHARMACY T SEND UP A DOSE IN AN IV BAG TO BE PLACED ON A PUMP FOR SAFETY.
--- NOTE | 2021-01-15 11:01 | ED.RN ---
THIS NURSE SPOKE WITH PT DAUGHTER PER PT REQUEST.
--- NOTE | 2021-01-15 11:30 | PCM.PN.SRG ---
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 Patient did have a history of DVT prior to hospitalization and was restarted on therapeutic Lovenox upon her transfer to TCU. This morning his hemoglobin was 5.5 previously 8.8 patient also had coffee-ground emesis and black stool per charting. Patient was typed and crossed in the ER and also given protamine per ER physician. Patient also also started on Protonix IV. Patient denies any nausea/upper abdominal pain Objective Data Objective Data Vital Signs: Vital Signs Temp Pulse Resp BP Pulse Ox 96.8 F L 83 19 H 124/59 H 100 01/15/21 11:01 01/15/21 11:01 01/15/21 11:01 01/15/21 11:01 01/15/21 11:01 Oxygen Flow Rate (L/min) 2 Oxygen Delivery Method Nasal Cannula Weight: 196 lb 13.965 oz Body Mass Index (BMI) 38.4 Intake & Output: Intake and Output for Last 24 Hours 01/13/21 01/14/21 01/15/21 23:59 23:59 23:59 Intake Total 73.08 / 73.08 Balance 73.08 / 73.08 Lab / Micro Data Result Diagrams: 01/15/21 09:25 01/15/21 09:25 Labs: Laboratory Results - last 24 hr 01/15/21 01/15/21 01/15/21 07:00 09:25 09:25 WBC 9.1 RBC 1.80 L Hgb 5.4 L* Hct 17.7 L MCV 98.3 MCH 30.0 MCHC 30.5 L RDW Std Deviation 73.0 H RDW Coeff of Laxmi 21.8 H Plt Count 253 MPV 9.6 Immature Gran % (Auto) 4.400 H Neut % (Auto) 69.8 Lymph % (Auto) 14.8 L [place] % (Auto) 9.2 Eos % (Auto) 1.4 Baso % (Auto) 0.4 Absolute Neuts (auto) 6.4 Absolute Lymphs (auto) 1.35 Nucleated RBC % 0.7 Differential Comment COMMENT Diff Path Review May foll Anisocytosis 1+ Sodium 143 Potassium 5.0 Chloride 115 H Carbon Dioxide 23.0 Anion Gap 5 BUN 91 H Creatinine 1.57 H Estim Creat Clear Calc 19.16 Est GFR (MDRD) Af Amer 40 L Est GFR (MDRD) Non-Af 33 L BUN/Creatinine Ratio 58.0 H Glucose 132 H Lactic Acid Calcium 8.5 Lipase 111 Blood Type A POSITIVE Antibody Screen NEGATIVE Crossmatch See Detail 01/15/21 09:25 WBC RBC Hgb Hct MCV MCH MCHC RDW Std Deviation RDW Coeff of Laxmi Plt Count MPV Immature Gran % (Auto) Neut % (Auto) Lymph % (Auto) [place] % (Auto) Eos % (Auto) Baso % (Auto) Absolute Neuts (auto) Absolute Lymphs (auto) Nucleated RBC % Differential Comment Diff Path Review Anisocytosis Sodium Potassium Chloride Carbon Dioxide Anion Gap BUN Creatinine Estim Creat Clear Calc Est GFR (MDRD) Af Amer Est GFR (MDRD) Non-Af BUN/Creatinine Ratio Glucose Lactic Acid 1.7 Calcium Lipase Blood Type Antibody Screen Crossmatch Micro: Microbiology 01/15/21 09:15 Stool Stool Occult Blood (WILLIE) - Final Occult Blood Positive Physical Exam Narrative Abdomen: Soft, mild tenderness at incision, incision dressed and packed in retention sutures in place. Good granulation tissue lower part incision closing well no signs of infection Resp normal respiratory effort Cardio regular rate Assessment & Plan Assessment/Plan (1) Acute upper gastrointestinal bleeding: (2) Anemia: QUALIFIERS: Anemia type: due to chronic kidney disease Chronic kidney disease stage: stage 3 (moderate) Chronic kidney disease stage 3 subtype: stage 3b (GFR 30-44) Qualified Code(s): N18.32 - Chronic kidney disease, stage 3b; D63.1 - Anemia in chronic kidney disease PLAN: We will continue patient on Protonix 40 mg IV twice daily while in the hospital. I have discussed the above with the patient. I have offered the patient EGD for evaluation. I have explained the risks/benefits of the procedure and described the procedure. I have discussed the risks with the patient, including but not limited to: infection, bleeding, perforation of the GI tract requiring emergency surgery, inability to complete the procedure, injury to any internal organs, complications of anesthesia, etc. - the patient understands and agrees to proceed. I have answered all the patient's questions to the patient's satisfaction and the patient has no further questions. Dr. Cooper will be rounding this weekend Prema Saucedo M.D. Pager: [phone] [facility] [address] [place] [address], [facility], [address] [place] [address] Office: [phone]
--- NOTE | 2021-01-15 11:40 | ED.RN ---
BEDSIDE REPORT GIVEN TO MINH CANTU IN AC. RN NOTIFIED THAT THE PANTOPRAZOLE NEEDS TO BE RESTARTED ONCE THE PROTAMINE SULFATE IS COMPLETED.
--- NOTE | 2021-01-15 12:26 | OP.CCLET_ITS ---
01/15/2021 Candice Amado [address] [place] [address] Re : Upper GI endoscopy procedure for Jolene Akhtar Dear Dr. Amado This procedure was performed on Friday, January 15, 2021. My impressions and recommendations are as follows: Impressions : - Z-line variable, 30 cm from the incisors. - Medium-sized hiatal hernia. - Hematin (altered blood/zimkwd-izmjnw-lqfv material) in the entire stomach. - Normal examined duodenum. - Non-bleeding gastric ulcer with adherent clot. - No specimens collected. Recommendations : - [facility] to [facility] for [facility] care. - Ok for sips of clears today today. - Continue present medications. - Use Protonix (pantoprazole) 40 mg IV BID while in hospital & will change to PO Qday vs BID on D/C. My findings are described in the full procedure note, which is enclosed. If I can be of further assistance, please feel free to contact me at Doctor phone number(s): , Work: . Sincerely, MD Prema Srinivasan MD 01/15/2021 12:25:33 PM This report has been signed electronically.
--- NOTE | 2021-01-15 12:26 | OP.EGD_ITS ---
Patient Name: Jolene Akhtar Procedure Date: 01/15/2021 11:49 AM Date of : 1935 Age: 85 Procedure: Upper GI endoscopy Indications: Coffee-ground emesis, Melena Providers: Prema Saucedo MD Medicines: Monitored Anesthesia Care Patient Profile: This is an 85 year old female. Complications: No immediate complications. Procedure: Pre-Anesthesia Assessment: - Prior to the procedure, a History and Physical was performed, and patient medications and allergies were reviewed. The patient's tolerance of previous anesthesia was also reviewed. The risks and benefits of the procedure and the sedation options and risks were discussed with the patient. All questions were answered, and informed consent was obtained. Prior Anticoagulants: The patient has taken Lovenox (enoxaparin), last dose was 1 day prior to procedure. ASA Grade Assessment: Per anesthesia. After reviewing the risks and benefits, the patient was deemed in satisfactory condition to undergo the procedure. After obtaining informed consent, the endoscope was passed under direct vision. Throughout the procedure, the patient's blood pressure, pulse, and oxygen saturations were monitored continuously. The gastroscope was introduced through the mouth, and advanced to the third part of duodenum. The upper GI endoscopy was accomplished without difficulty. The patient tolerated the procedure well. Scope In: 12:08:36 PM Scope Out: 12:13:47 PM Total Procedure Duration Time 0 hours 5 minutes 11 seconds Findings: The Z-line was variable and was found 30 cm from the incisors. A medium-sized hiatal hernia was present. Hematin (altered blood/amxzkc-pnzvkx-wlez material) was found in the entire examined stomach. The examined duodenum was normal. 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 The lesion was 4 mm in largest dimension. Impression: - Z-line variable, 30 cm from the incisors. - Medium-sized hiatal hernia. - Hematin (altered blood/oqwjba-xooelt-fsyc material) in the entire stomach. - Normal examined duodenum. - Non-bleeding gastric ulcer with adherent clot. - No specimens collected. Recommendation: - [facility] to [facility] for [facility] care. - Ok for sips of clears today today. - Continue present medications. - Use Protonix (pantoprazole) 40 mg IV BID while in hospital & will change to PO Qday vs BID on D/C. Procedure Code(s): --- Professional --- 51401, Esophagogastroduodenoscopy, flexible, transoral; diagnostic, including collection of specimen(s) by brushing or washing, when performed (separate procedure) Diagnosis Code(s): --- Professional --- K22.8, Other specified diseases of esophagus K44.9, Diaphragmatic hernia without obstruction or gangrene K92.2, Gastrointestinal hemorrhage, unspecified K25.4, Chronic or unspecified gastric ulcer with hemorrhage K92.0, Hematemesis K92.1, Melena (includes Hematochezia) CPT copyright 2017 [employer]. All rights reserved. The codes documented in this report are preliminary and upon protective services case worker review may be revised to meet current compliance requirements. MD Prema Srinivasan MD 01/15/2021 12:25:33 PM This report has been signed electronically. Number of Addenda: 0 Note Initiated On: 01/15/2021 11:49 AM
--- NOTE | 2021-01-15 14:26 | NURSING ---
wound photo: abdomen
--- NOTE | 2021-01-15 15:50 | CASEMGMT ---
RN CM NOTE: Per Jennie, SW, pt qualified for Palliative referral when on TCU and referral has been made. Jak MORRIS RN CM
[2021-01-15] MEDS: 0.9% Saline Lock 10 ML Syringe IV ×2 (18:33→21:51)
[2021-01-15] MEDS: Ipratropium/Albuterol Sulfate 3 ML AMPUL.NEB INHALATION (18:49)
[2021-01-15 21:08] LABS: Hematocrit 26.3 % (37-47); Hemoglobin 8.4 g/dL (12.0-15.0)
[2021-01-16] VITALS (13 sets, daily range): BP systolic 96–108; BP diastolic 49–50; PULSE 81–104; RESP 16–21; TEMP 36.6–36.9; O2SAT 94–98
[2021-01-16] MEDS: Acetaminophen 325 MG Tablet 650 MG PO (04:08)
[2021-01-16 06:44] LABS: Absolute Lymphocyte Count 0.98 X10^3/uL (0.83-4.51); Absolute Neutrophil Count 6.6 X10^3/uL (2.0-7.7); Basophil# 0.05 X10^3/uL; Basophil% 0.6 % (0-1); Eosinophil# 0.14 X10^3/uL; Eosinophils% 1.6 % (0-5); Hematocrit 23.5 % (37-47); Hemoglobin 7.4 g/dL (12.0-15.0); Lymphocyte # 0.98 X10^3/ul (0.83-4.51); Lymphocyte % 10.9 % (19-41); Mean Corp Hgb Conc 31.5 g/dL (32-36); Mean Corpuscular Hgb 28.2 pg (27.0-32.0); Mean Corpuscular Volume 89.7 fL (81-99); Mean Platelet Vol. 9.5 fl (6.2-12.0); Monocyte# 0.95 X10^3/uL; Monocyte% 10.6 % (0-10); Neutrophil # 6.55 X10^3/uL (2.7-7.7); Neutrophil % 72.6 % (47-70); POSITIVE MORPHOLOGY YES; Platelet Count 193 K/mm3 (150-450); RBC Distribution Width CV 20.7 % (11.6-14.6); Red Blood Count 2.62 M/mm3 (4.2-5.4)
[2021-01-16 06:49] LABS: Differential Indicated SCAN CRITERIA MET
[2021-01-16 07:02] LABS: Anion Gap 5 (5-15); BUN 82 mg/dL (7-18); BUN/Creat Ratio 48.5 RATIO (10-20); Chloride 117 mmol/L (98-107); Creatinine, Serum 1.69 mg/dL (0.55-1.02); EST Glomerular Filtration Rate 31 mL/min (>60); Est Glom Filt Rate - Afr Amer 37 mL/min (>60); Glucose 90 mg/dL (74-106); Potassium 4.7 mmol/L (3.5-5.1); Sodium Level 145 mmol/L (136-145)
[2021-01-16 07:06] LABS: Anisocytosis 1+; Differential Comment SCANNED; Macrocytosis RARE; Microcytosis RARE
[2021-01-16] MEDS: Ipratropium/Albuterol Sulfate 3 ML AMPUL.NEB INHALATION ×3 (07:09→19:20)
--- NOTE | 2021-01-16 07:20 | PN.SURG_ITS ---
Subjective Subjective Patient is complaining of some slight abdominal soreness which is diffuse Objective Data Objective Data Vital Signs: Vital Signs Temp Pulse Resp BP Pulse Ox 98.0 F 84 18 100/49 L 98 01/16/21 03:45 01/16/21 03:45 01/16/21 03:45 01/16/21 03:45 01/16/21 03:45 Oxygen Flow Rate (L/min) 2 Oxygen Delivery Method Nasal Cannula Weight: 195 lb 3.2 oz Body Mass Index (BMI) 38.1 Intake & Output: Intake and Output for Last 24 Hours 01/14/21 01/15/21 01/16/21 23:59 23:59 23:59 Intake Total 239.00 / 359.00 120 / 120 Output Total 1000 / 1260 560 / 560 Balance -761.00 / -901.00 -440 / -440 Lab / Micro Data Result Diagrams: 01/16/21 05:46 01/16/21 05:46 Labs: Laboratory Results - last 24 hr 01/15/21 01/15/21 01/15/21 07:00 09:25 09:25 WBC 9.1 RBC 1.80 L Hgb 5.4 L* Hct 17.7 L MCV 98.3 MCH 30.0 MCHC 30.5 L RDW Std Deviation 73.0 H RDW Coeff of Laxmi 21.8 H Plt Count 253 MPV 9.6 Immature Gran % (Auto) 4.400 H Neut % (Auto) 69.8 Lymph % (Auto) 14.8 L [place] % (Auto) 9.2 Eos % (Auto) 1.4 Baso % (Auto) 0.4 Absolute Neuts (auto) 6.4 Absolute Lymphs (auto) 1.35 Nucleated RBC % 0.7 Differential Comment COMMENT Diff Path Review May foll Anisocytosis 1+ Microcytosis Macrocytosis Sodium 143 Potassium 5.0 Chloride 115 H Carbon Dioxide 23.0 Anion Gap 5 BUN 91 H Creatinine 1.57 H Estim Creat Clear Calc 19.16 Est GFR (MDRD) Af Amer 40 L Est GFR (MDRD) Non-Af 33 L BUN/Creatinine Ratio 58.0 H Glucose 132 H Lactic Acid Calcium 8.5 Lipase 111 Blood Type A POSITIVE Antibody Screen NEGATIVE Crossmatch See Detail 01/15/21 01/15/21 01/15/21 09:25 20:10 20:42 WBC RBC Hgb Cancelled 8.4 L Hct Cancelled 26.3 L MCV MCH MCHC RDW Std Deviation RDW Coeff of Laxmi Plt Count MPV Immature Gran % (Auto) Neut % (Auto) Lymph % (Auto) [place] % (Auto) Eos % (Auto) Baso % (Auto) Absolute Neuts (auto) Absolute Lymphs (auto) Nucleated RBC % Differential Comment Diff Path Review Anisocytosis Microcytosis Macrocytosis Sodium Potassium Chloride Carbon Dioxide Anion Gap BUN Creatinine Estim Creat Clear Calc Est GFR (MDRD) Af Amer Est GFR (MDRD) Non-Af BUN/Creatinine Ratio Glucose Lactic Acid 1.7 Calcium Lipase Blood Type Antibody Screen Crossmatch 01/16/21 01/16/21 05:46 05:46 WBC 9.0 RBC 2.62 L Hgb 7.4 L Hct 23.5 L MCV 89.7 D MCH 28.2 MCHC 31.5 L RDW Std Deviation 59.0 H RDW Coeff of Laxmi 20.7 H Plt Count 193 MPV 9.5 Immature Gran % (Auto) 3.700 H Neut % (Auto) 72.6 H Lymph % (Auto) 10.9 L [place] % (Auto) 10.6 H Eos % (Auto) 1.6 Baso % (Auto) 0.6 Absolute Neuts (auto) 6.6 Absolute Lymphs (auto) 0.98 Nucleated RBC % 1.0 Differential Comment SCANNED Diff Path Review Anisocytosis 1+ Microcytosis RARE Macrocytosis RARE Sodium 145 Potassium 4.7 Chloride 117 H Carbon Dioxide 23.0 Anion Gap 5 BUN 82 H Creatinine 1.69 H Estim Creat Clear Calc 17.80 Est GFR (MDRD) Af Amer 37 L Est GFR (MDRD) Non-Af 31 L BUN/Creatinine Ratio 48.5 H Glucose 90 Lactic Acid Calcium 9.0 Lipase Blood Type Antibody Screen Crossmatch Micro: Microbiology 01/15/21 09:15 Stool Stool Occult Blood (WILLIE) - Final Occult Blood Positive Physical Exam Const oriented x3 and no apparent distress Resp normal respiratory effort Cardio regular rate and regular rhythm GI soft to palpation Assessment & Plan Assessment/Plan (1) Acute upper gastrointestinal bleeding: PLAN: Patient had upper GI from a gastric ulcer. The patient's hemoglobin did decrease by 1 g and we will continue to monitor. I will start her on a clear liquid diet and some Carafate in addition to the PPI. Once her hemoglobin stabilizes her diet can be advanced. I would continue clear liquids until we have at least 2 subsequent hemoglobins which are stable. Nnamdi Cooper MD Pager: [facility] [address] [place] [address], [address] [place] [address] Office:
--- NOTE | 2021-01-16 09:10 | PCM.PN.HOSP ---
Subjective Subjective Feels much better today, no new issues overnight. Tolerating a clear liquid diet this morning. Hemoglobin is 7.4 will recheck this afternoon. Objective Data Objective Data Vital Signs: Vital Signs Temp Pulse Resp BP Pulse Ox 98.0 F 87 21 H 100/49 L 96 01/16/21 03:45 01/16/21 07:45 01/16/21 07:45 01/16/21 03:45 01/16/21 07:45 Oxygen Flow Rate (L/min) 2 Oxygen Delivery Method Room Air Weight: 195 lb 3.2 oz Body Mass Index (BMI) 38.1 Intake & Output: Intake and Output for Last 24 Hours 01/15/21 01/16/21 01/17/21 03:59 03:59 03:59 Intake Total 359.00 / 359.00 Output Total 1260 / 1260 300 / 300 Balance -901.00 / -901.00 -300 / -300 Lab / Micro Data Result Diagrams: 01/16/21 05:46 01/16/21 05:46 Labs: Laboratory Results - last 24 hr 01/15/21 01/15/21 01/15/21 07:00 09:25 09:25 WBC 9.1 RBC 1.80 L Hgb 5.4 L* Hct 17.7 L MCV 98.3 MCH 30.0 MCHC 30.5 L RDW Std Deviation 73.0 H RDW Coeff of Laxmi 21.8 H Plt Count 253 MPV 9.6 Immature Gran % (Auto) 4.400 H Neut % (Auto) 69.8 Lymph % (Auto) 14.8 L [place] % (Auto) 9.2 Eos % (Auto) 1.4 Baso % (Auto) 0.4 Absolute Neuts (auto) 6.4 Absolute Lymphs (auto) 1.35 Nucleated RBC % 0.7 Differential Comment COMMENT Diff Path Review May foll Anisocytosis 1+ Microcytosis Macrocytosis Sodium 143 Potassium 5.0 Chloride 115 H Carbon Dioxide 23.0 Anion Gap 5 BUN 91 H Creatinine 1.57 H Estim Creat Clear Calc 19.16 Est GFR (MDRD) Af Amer 40 L Est GFR (MDRD) Non-Af 33 L BUN/Creatinine Ratio 58.0 H Glucose 132 H Lactic Acid Calcium 8.5 Lipase 111 Blood Type A POSITIVE Antibody Screen NEGATIVE Crossmatch See Detail 0601/15/21 01/15/21 09:25 20:10 20:42 WBC RBC Hgb Cancelled 8.4 L Hct Cancelled 26.3 L MCV MCH MCHC RDW Std Deviation RDW Coeff of Laxmi Plt Count MPV Immature Gran % (Auto) Neut % (Auto) Lymph % (Auto) [place] % (Auto) Eos % (Auto) Baso % (Auto) Absolute Neuts (auto) Absolute Lymphs (auto) Nucleated RBC % Differential Comment Diff Path Review Anisocytosis Microcytosis Macrocytosis Sodium Potassium Chloride Carbon Dioxide Anion Gap BUN Creatinine Estim Creat Clear Calc Est GFR (MDRD) Af Amer Est GFR (MDRD) Non-Af BUN/Creatinine Ratio Glucose Lactic Acid 1.7 Calcium Lipase Blood Type Antibody Screen Crossmatch 01/16/21 01/16/21 05:46 05:46 WBC 9.0 RBC 2.62 L Hgb 7.4 L Hct 23.5 L MCV 89.7 D MCH 28.2 MCHC 31.5 L RDW Std Deviation 59.0 H RDW Coeff of Laxmi 20.7 H Plt Count 193 MPV 9.5 Immature Gran % (Auto) 3.700 H Neut % (Auto) 72.6 H Lymph % (Auto) 10.9 L [place] % (Auto) 10.6 H Eos % (Auto) 1.6 Baso % (Auto) 0.6 Absolute Neuts (auto) 6.6 Absolute Lymphs (auto) 0.98 Nucleated RBC % 1.0 Differential Comment SCANNED Diff Path Review Anisocytosis 1+ Microcytosis RARE Macrocytosis RARE Sodium 145 Potassium 4.7 Chloride 117 H Carbon Dioxide 23.0 Anion Gap 5 BUN 82 H Creatinine 1.69 H Estim Creat Clear Calc 17.80 Est GFR (MDRD) Af Amer 37 L Est GFR (MDRD) Non-Af 31 L BUN/Creatinine Ratio 48.5 H Glucose 90 Lactic Acid Calcium 9.0 Lipase Blood Type Antibody Screen Crossmatch Micro: Microbiology 01/15/21 09:15 Stool Stool Occult Blood (WILLIE) - Final Occult Blood Positive Physical Exam Const alert, oriented x3 and no apparent distress General Appearance: cooperative HEENT normocephalic Eyes PERRL, EOMs intact bilaterally and conjunctivae normal Neck supple and no JVD Resp normal respiratory effort, no retractions, no use of accessory muscles and clear to auscultation bilaterally Auscultation: Negative for crackles, rales, rhonchi or wheezes Cardio regular rate, regular rhythm, S1 normal heart sound, S2 normal heart sound and no murmurs GI soft to palpation and non-distended; Negative for hepatosplenomegaly Inspection: incision intact and healing well Palpation: tender other (Diffusely around the incision and previous operative site) Extremity no clubbing, cyanosis or edema Skin no rashes or lesions noted Neuro no focal motor deficits and no sensory deficits noted Psych affect normal Appearance: appropriate Assessment & Plan Assessment/Plan (1) Acute upper gastrointestinal bleeding: (2) Anemia: QUALIFIERS: Anemia type: due to chronic kidney disease Chronic kidney disease stage: stage 3 (moderate) Chronic kidney disease stage 3 subtype: stage 3b (GFR 30-44) Qualified Code(s): N18.32 - Chronic kidney disease, stage 3b; 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 Upper GI bleed with acute on chronic anemia -We will place on Protonix twice daily and hold her Lovenox -Place her on SCDs -Consult general surgery -Clear liquids. -EGD demonstrated an adherent clot to an ulcer, will continue with PPI -We will repeat hemoglobin at noon and then 1 more this evening and if that stable can plan for discharge tomorrow, as well as advance her diet 2. HTN/HLD -We will hold her blood pressure medications secondary to some mild hypotension -Continue with PRBCs 3. 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 Rheumatoid arthritis -We will verify home medications prior to restarting 5. Depression/anxiety/migraines -We will verify home medications prior to restarting anything DVT: SCDs Charges/Coding Visit Charges Inpatient E&M: 06180 Subs Hosp L2
--- NOTE | 2021-01-16 10:49 | NS ---
Pt on soft/bite sized diet per TCU documentation. Will likely need modified consistency when PO diet advanced- may need DEPUTY ASSESSOR evaluation when appropriate.
[2021-01-16] MEDS: Ferrous Sulfate 325 MG Tablet PO (11:26)
[2021-01-16] MEDS: Sucralfate 1 GM Tablet PO ×3 (11:26→21:14)
[2021-01-16 12:48] LABS: Hematocrit 23.3 % (37-47); Hemoglobin 7.5 g/dL (12.0-15.0)
--- NOTE | 2021-01-16 14:16 | NURSING ---
This nurse spoke to TCU nurse Dionne to verify meds. Med req complete.
[2021-01-16] MEDS: Juven (unflavored) Packet 1 PACKET PO (17:12)
[2021-01-16 18:15] LABS: Hematocrit 25.1 % (37-47); Hemoglobin 7.8 g/dL (12.0-15.0)
--- NOTE | 2021-01-16 19:13 | CM.ED ---
AIDA Note Referral Source: Manager Of Data Reason for Referral: From Transitional Care Unit (TCU) AIDA met with patient and her son in the room. Patient said that she would like to go home but was in agreement with returning to TCU. Email sent to Alison updating her of patient's desire to return. Plan: TCU [facility]
[2021-01-16] MEDS: Gabapentin 100 MG Capsule PO (21:14)
[2021-01-16] MEDS: Pramipexole Di-HCl 0.25 MG Tablet PO (21:14)
[2021-01-16] MEDS: DULoxetine Hcl 60 MG Capsule PO (21:14)
[2021-01-16] MEDS: Hydroxychloroquine 200 MG Tablet PO (21:14)
[2021-01-16] MEDS: buPROPion 75 MG Tablet PO (21:14)
[2021-01-16] MEDS: Menthol/Lanolin/Calamine/Znox 113 GM Tube 1 APPLIC TOPICAL (21:14)
[2021-01-16] MEDS: Gabapentin 300 MG Capsule PO (21:14)
[2021-01-17] VITALS (22 sets, daily range): BP systolic 94–114; BP diastolic 36–68; PULSE 87–103; RESP 18–24; TEMP 36.4–37.4; O2SAT 93–99
[2021-01-17] MEDS: Sucralfate 1 GM Tablet PO ×4 (06:00→21:24)
[2021-01-17 06:51] LABS: Absolute Lymphocyte Count 0.84 X10^3/uL (0.83-4.51); Absolute Neutrophil Count 3.1 X10^3/uL (2.0-7.7); Basophil# 0.03 X10^3/uL; Basophil% 0.6 % (0-1); Eosinophil# 0.16 X10^3/uL; Eosinophils% 3.2 % (0-5); Hematocrit 21.8 % (37-47); Hemoglobin 6.7 g/dL (12.0-15.0); Lymphocyte # 0.84 X10^3/ul (0.83-4.51); Lymphocyte % 16.8 % (19-41); Mean Corp Hgb Conc 30.7 g/dL (32-36); Mean Corpuscular Hgb 28.6 pg (27.0-32.0); Mean Corpuscular Volume 93.2 fL (81-99); Mean Platelet Vol. 9.4 fl (6.2-12.0); Monocyte# 0.67 X10^3/uL; Monocyte% 13.4 % (0-10); NRBC Flagged by Analyzer 0.8 % (0-5); Neutrophil # 3.09 X10^3/uL (2.7-7.7); Neutrophil % 61.6 % (47-70); POSITIVE MORPHOLOGY YES; Platelet Count 166 K/mm3 (150-450); RBC Distribution Width CV 21.6 % (11.6-14.6); RBC Distribution Width SD 64.3 fl (35.1-43.9); Red Blood Count 2.34 M/mm3 (4.2-5.4)
[2021-01-17 07:00] LABS: Differential Indicated SCAN CRITERIA MET
[2021-01-17] MEDS: Ipratropium/Albuterol Sulfate 3 ML AMPUL.NEB INHALATION ×3 (07:11→19:13)
[2021-01-17 07:14] LABS: Anion Gap 7 (5-15); BUN 62 mg/dL (7-18); BUN/Creat Ratio 37.8 RATIO (10-20); Calcium,Total 8.6 mg/dL (8.5-10.1); Chloride 116 mmol/L (98-107); Creatinine, Serum 1.64 mg/dL (0.55-1.02); EST Glomerular Filtration Rate 32 mL/min (>60); Est Glom Filt Rate - Afr Amer 38 mL/min (>60); Estimated Creatinine Clearance 18.34 ml/min; Glucose 93 mg/dL (74-106); Potassium 4.1 mmol/L (3.5-5.1); Sodium Level 145 mmol/L (136-145)
[2021-01-17 07:24] LABS: Anisocytosis 1+
--- NOTE | 2021-01-17 07:46 | PN.SURG_ITS ---
Subjective Subjective She reports that her abdominal pain is improved somewhat. She did not have any black bowel movements overnight. She did not have any nausea or vomiting overnight and she tolerated clear liquids. Objective Data Objective Data Vital Signs: Vital Signs Temp Pulse Resp BP Pulse Ox 99.1 F 92 22 H 99/56 L 93 01/17/21 02:52 01/17/21 07:11 01/17/21 07:11 01/17/21 02:52 01/17/21 07:11 Oxygen Flow Rate (L/min) 2 Oxygen Delivery Method Room Air Weight: 195 lb 3.192 oz Body Mass Index (BMI) 38.1 Intake & Output: Intake and Output for Last 24 Hours 01/15/21 01/16/21 01/17/21 23:59 23:59 23:59 Intake Total 239.00 / 359.00 940 / 940 Output Total 1000 / 1260 1460 / 1810 675 / 675 Balance -761.00 / -901.00 -520 / -870 -675 / -675 Lab / Micro Data Result Diagrams: 01/17/21 06:21 01/17/21 06:21 Labs: Laboratory Results - last 24 hr 01/15/21 01/16/21 01/16/21 07:00 12:00 18:08 WBC RBC Hgb 7.5 L 7.8 L Hct 23.3 L 25.1 L MCV MCH MCHC RDW Std Deviation RDW Coeff of Laxmi Plt Count MPV Immature Gran % (Auto) Neut % (Auto) Lymph % (Auto) [place] % (Auto) Eos % (Auto) Baso % (Auto) Absolute Neuts (auto) Absolute Lymphs (auto) Nucleated RBC % Anisocytosis Sodium Potassium Chloride Carbon Dioxide Anion Gap BUN Creatinine Estim Creat Clear Calc Est GFR (MDRD) Af Amer Est GFR (MDRD) Non-Af BUN/Creatinine Ratio Glucose Calcium Crossmatch See Detail 01/17/21 01/17/21 06:21 06:21 WBC 5.0 RBC 2.34 L Hgb 6.7 L Hct 21.8 L MCV 93.2 MCH 28.6 MCHC 30.7 L RDW Std Deviation 64.3 H RDW Coeff of Laxmi 21.6 H Plt Count 166 MPV 9.4 Immature Gran % (Auto) 4.400 H Neut % (Auto) 61.6 Lymph % (Auto) 16.8 L [place] % (Auto) 13.4 H Eos % (Auto) 3.2 Baso % (Auto) 0.6 Absolute Neuts (auto) 3.1 Absolute Lymphs (auto) 0.84 Nucleated RBC % 0.8 Anisocytosis 1+ Sodium 145 Potassium 4.1 Chloride 116 H Carbon Dioxide 22.0 Anion Gap 7 BUN 62 H Creatinine 1.64 H Estim Creat Clear Calc 18.34 Est GFR (MDRD) Af Amer 38 L Est GFR (MDRD) Non-Af 32 L BUN/Creatinine Ratio 37.8 H Glucose 93 Calcium 8.6 Crossmatch Micro: Microbiology 01/15/21 09:15 Stool Stool Occult Blood (WILLIE) - Final Occult Blood Positive Physical Exam Resp normal respiratory effort Cardio regular rate and regular rhythm GI soft to palpation Inspection: Negative for abdominal distention Assessment & Plan Assessment/Plan (1) Acute upper gastrointestinal bleeding: PLAN: Patient had upper GI from a gastric ulcer. The patient hemoglobin is now 6.7. Patient may need transfusion. I would continue clear liquid diet at this time as she is not actively having signs of bleeding. Once her h emoglobin has stabilized and she is not requiring any more transfusions and there is definitely not a need for EGD I will allow her to advance her diet. Continue PPI and Carafate for now. Continue clear liquids for now. If the patient develops any active signs of bleeding such as coffee-ground emesis or blood per rectum I will make the patient n.p.o. and perform repeat EGD. Nnamdi Cooper MD Pager: [facility] [address] [place] [address], [address] [place] [address] Office:
[2021-01-17] MEDS: Juven (unflavored) Packet 1 PACKET PO ×2 (09:03→16:19)
[2021-01-17] MEDS: Tolterodine Tartrate 4 MG CAP.SA PO (09:03)
[2021-01-17] MEDS: Gabapentin 100 MG Capsule PO ×2 (09:03→21:24)
[2021-01-17] MEDS: DULoxetine Hcl 60 MG Capsule PO ×2 (09:03→21:25)
[2021-01-17] MEDS: Hydroxychloroquine 200 MG Tablet PO ×2 (09:03→21:24)
[2021-01-17] MEDS: Menthol/Lanolin/Calamine/Znox 113 GM Tube 1 APPLIC TOPICAL ×2 (09:04→21:24)
[2021-01-17] MEDS: buPROPion 75 MG Tablet PO ×2 (09:05→21:24)
[2021-01-17] MEDS: 0.9% Saline Lock 10 ML Syringe IV ×2 (09:22→16:18)
--- NOTE | 2021-01-17 09:29 | PN.HOSP_ITS ---
Subjective Subjective No issues overnight, feels okay denies any emesis or bloody diarrhea today. Her hemoglobin function is back down to 6.7 therefore will be transfused 2 more units. Objective Data Objective Data Vital Signs: Vital Signs Temp Pulse Resp BP Pulse Ox 98.8 F 98 18 94/36 L 95 01/17/21 09:00 01/17/21 09:00 01/17/21 09:00 01/17/21 09:00 01/17/21 09:00 Oxygen Flow Rate (L/min) 2 Oxygen Delivery Method Room Air Weight: 195 lb 3.192 oz Body Mass Index (BMI) 38.1 Intake & Output: Intake and Output for Last 24 Hours 01/16/21 01/17/21 01/18/21 03:59 03:59 03:59 Intake Total 359.00 / 359.00 820 / 820 0 / 0 Output Total 1260 / 1260 1550 / 1550 325 / 325 Balance -901.00 / -901.00 -730 / -730 -325 / -325 Lab / Micro Data Result Diagrams: 01/17/21 06:21 01/17/21 06:21 Labs: Laboratory Results - last 24 hr 01/15/21 01/16/21 01/16/21 07:00 12:00 18:08 WBC RBC Hgb 7.5 L 7.8 L Hct 23.3 L 25.1 L MCV MCH MCHC RDW Std Deviation RDW Coeff of Laxmi Plt Count MPV Immature Gran % (Auto) Neut % (Auto) Lymph % (Auto) [place] % (Auto) Eos % (Auto) Baso % (Auto) Absolute Neuts (auto) Absolute Lymphs (auto) Nucleated RBC % Anisocytosis Sodium Potassium Chloride Carbon Dioxide Anion Gap BUN Creatinine Estim Creat Clear Calc Est GFR (MDRD) Af Amer Est GFR (MDRD) Non-Af BUN/Creatinine Ratio Glucose Calcium Crossmatch See Detail 01/17/21 01/17/21 06:21 06:21 WBC 5.0 RBC 2.34 L Hgb 6.7 L Hct 21.8 L MCV 93.2 MCH 28.6 MCHC 30.7 L RDW Std Deviation 64.3 H RDW Coeff of Laxmi 21.6 H Plt Count 166 MPV 9.4 Immature Gran % (Auto) 4.400 H Neut % (Auto) 61.6 Lymph % (Auto) 16.8 L [place] % (Auto) 13.4 H Eos % (Auto) 3.2 Baso % (Auto) 0.6 Absolute Neuts (auto) 3.1 Absolute Lymphs (auto) 0.84 Nucleated RBC % 0.8 Anisocytosis 1+ Sodium 145 Potassium 4.1 Chloride 116 H Carbon Dioxide 22.0 Anion Gap 7 BUN 62 H Creatinine 1.64 H Estim Creat Clear Calc 18.34 Est GFR (MDRD) Af Amer 38 L Est GFR (MDRD) Non-Af 32 L BUN/Creatinine Ratio 37.8 H Glucose 93 Calcium 8.6 Crossmatch Micro: Microbiology 01/15/21 09:15 Stool Stool Occult Blood (WILLIE) - Final Occult Blood Positive Physical Exam Const alert, oriented x3 and no apparent distress General Appearance: cooperative HEENT normocephalic Eyes PERRL, EOMs intact bilaterally and conjunctivae normal Neck supple and no JVD Resp normal respiratory effort, no retractions, no use of accessory muscles and clear to auscultation bilaterally Auscultation: Negative for crackles, rales, rhonchi or wheezes Cardio regular rate, regular rhythm, S1 normal heart sound, S2 normal heart sound and no murmurs GI soft to palpation and non-distended; Negative for hepatosplenomegaly Inspection: incision intact and healing well Palpation: tender other (Diffusely around the incision and previous operative site) Extremity no clubbing, cyanosis or edema Skin no rashes or lesions noted Neuro no focal motor deficits and no sensory deficits noted Psych affect normal Appearance: appropriate Assessment & Plan Assessment/Plan (1) Acute upper gastrointestinal bleeding: (2) Anemia: QUALIFIERS: Anemia type: due to chronic kidney disease Chronic kidney disease stage: stage 3 (moderate) Chronic kidney disease stage 3 subtype: stage 3b (GFR 30-44) Qualified Code(s): N18.32 - Chronic kidney di sease, stage 3b; 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 Upper GI bleed with acute on chronic anemia -We will place on Protonix twice daily and hold her Lovenox -Place her on SCDs -Consult general surgery -Clear liquids. -EGD demonstrated an adherent clot to an ulcer -Repeat hemoglobin this morning is 6.7, will transfuse 2 more units and recheck 1 hour after the last unit. Continue with a clear liquid diet and will evaluate again tomorrow morning and if still stable then could consider transfer back to the transitional care unit otherwise she may need a repeat scope. -Carafate was added by surgery 2. HTN/HLD -We will hold her blood pressure medications secondary to some mild hypotension -Continue with PRBCs 3. 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 Rheumatoid arthritis -Stable -Continue with Plaquenil 5. Depression/anxiety/migraines -Stable -Continue with her home medications DVT: SCDs Charges/Coding Visit Charges Inpatient E&M: 52134 Subs Hosp L2
[2021-01-17] MEDS: Acetaminophen 325 MG Tablet 650 MG PO ×2 (10:56→19:42)
[2021-01-17] MEDS: Ferrous Sulfate 325 MG Tablet PO (11:34)
[2021-01-17 17:14] LABS: Hematocrit 32.1 % (37-47); Hemoglobin 10.2 g/dL (12.0-15.0)
[2021-01-17] MEDS: Rizatriptan Benzoate 10 MG Tablet PO (20:28)
[2021-01-17] MEDS: Pramipexole Di-HCl 0.25 MG Tablet PO (21:24)
[2021-01-17] MEDS: Gabapentin 300 MG Capsule PO (21:24)
[2021-01-18] VITALS (10 sets, daily range): BP systolic 111–138; BP diastolic 58–95; PULSE 84–106; RESP 16–18; TEMP 36.2–37.1; O2SAT 95–100
[2021-01-18] MEDS: Sucralfate 1 GM Tablet PO ×4 (06:16→21:07)
[2021-01-18] MEDS: Ipratropium/Albuterol Sulfate 3 ML AMPUL.NEB INHALATION ×2 (06:55→13:10)
[2021-01-18 06:57] LABS: Absolute Lymphocyte Count 0.74 X10^3/uL (0.83-4.51); Absolute Neutrophil Count 3.1 X10^3/uL (2.0-7.7); Basophil# 0.04 X10^3/uL; Basophil% 0.8 % (0-1); Eosinophil# 0.21 X10^3/uL; Eosinophils% 4.3 % (0-5); Hematocrit 31.1 % (37-47); Hemoglobin 9.9 g/dL (12.0-15.0); Lymphocyte # 0.74 X10^3/ul (0.83-4.51); Lymphocyte % 15.1 % (19-41); Mean Corp Hgb Conc 31.8 g/dL (32-36); Mean Corpuscular Hgb 28.5 pg (27.0-32.0); Mean Corpuscular Volume 89.6 fL (81-99); Mean Platelet Vol. 9.2 fl (6.2-12.0); Monocyte# 0.58 X10^3/uL; Monocyte% 11.9 % (0-10); NRBC Flagged by Analyzer 0 % (0-5); Neutrophil # 3.11 X10^3/uL (2.7-7.7); Neutrophil % 63.6 % (47-70); Platelet Count 176 K/mm3 (150-450); RBC Distribution Width CV 19.9 % (11.6-14.6); RBC Distribution Width SD 54.5 fl (35.1-43.9); Red Blood Count 3.47 M/mm3 (4.2-5.4); White Blood Count 4.9 K/mm3 (4.4-11.0)
--- NOTE | 2021-01-18 07:17 | PN.SURG_ITS ---
Subjective Subjective The patient does not report any abdominal pain today. She did have some dark loose stools overnight. No nausea or vomiting. Objective Data Objective Data Vital Signs: Vital Signs Temp Pulse Resp BP Pulse Ox 97.1 F L 91 16 138/95 H 100 01/18/21 03:20 01/18/21 06:55 01/18/21 06:55 01/18/21 03:20 01/18/21 03:20 Oxygen Flow Rate (L/min) 2 Oxygen Delivery Method Room Air Weight: 195 lb 3.192 oz Body Mass Index (BMI) 38.1 Intake & Output: Intake and Output for Last 24 Hours 01/16/21 01/17/21 01/18/21 23:59 23:59 23:59 Intake Total 940 / 940 1160 / 1160 Output Total 1460 / 1810 1925 / 1925 975 / 975 Balance -520 / -870 -765 / -765 -975 / -975 Lab / Micro Data Result Diagrams: 01/18/21 06:10 01/17/21 06:21 Labs: Laboratory Results - last 24 hr 01/15/21 01/17/21 01/17/21 07:00 06:21 15:10 WBC RBC Hgb 10.2 L Hct 32.1 L MCV MCH MCHC RDW Std Deviation RDW Coeff of Laxmi Plt Count MPV Immature Gran % (Auto) Neut % (Auto) Lymph % (Auto) [place] % (Auto) Eos % (Auto) Baso % (Auto) Absolute Neuts (auto) Absolute Lymphs (auto) Nucleated RBC % Anisocytosis 1+ Crossmatch See Detail 01/18/21 06:10 WBC 4.9 RBC 3.47 L Hgb 9.9 L Hct 31.1 L MCV 89.6 MCH 28.5 MCHC 31.8 L RDW Std Deviation 54.5 H RDW Coeff of Laxmi 19.9 H Plt Count 176 MPV 9.2 Immature Gran % (Auto) 4.300 H Neut % (Auto) 63.6 Lymph % (Auto) 15.1 L [place] % (Auto) 11.9 H Eos % (Auto) 4.3 Baso % (Auto) 0.8 Absolute Neuts (auto) 3.1 Absolute Lymphs (auto) 0.74 L Nucleated RBC % 0 Anisocytosis Crossmatch Micro: Microbiology 01/15/21 09:15 Stool Stool Occult Blood (WILLIE) - Final Occult Blood Positive Physical Exam Const oriented x3 and no apparent distress Resp normal respiratory effort Cardio regular rate and regular rhythm GI normal to inspection, nondistended, normoactive bowel sounds Assessment & Plan Assessment/Plan (1) Anemia: QUALIFIERS: Anemia type: iron deficiency Iron deficiency anemia type: chronic blood loss Qualified Code(s): D50.0 - Iron deficiency anemia secondary to blood loss (chronic) (2) Acute upper gastrointestinal bleeding: PLAN: The patient reports that her abdominal pain is improved and is resolved. Patient did have some loose dark stools overnight. She received a transfusion yesterday and her hemoglobin yesterday evening after transfusion was 10.2. Today it is still stable at 9.9. I will try to advance her diet. As long as hemoglobin stays stable she should be okay for transfer back to TCU. If hemoglobin drops at the next count I will plan for EGD tomorrow. Nnamdi Cooper MD Pager: [facility] [address] [place] [address], [address] [place] [address] Office:
[2021-01-18 07:25] LABS: Anion Gap 4 (5-15); BUN 57 mg/dL (7-18); BUN/Creat Ratio 35.8 RATIO (10-20); Calcium,Total 8.8 mg/dL (8.5-10.1); Chloride 116 mmol/L (98-107); Creatinine, Serum 1.59 mg/dL (0.55-1.02); EST Glomerular Filtration Rate 33 mL/min (>60); Est Glom Filt Rate - Afr Amer 40 mL/min (>60); Estimated Creatinine Clearance 18.92 ml/min; Glucose 84 mg/dL (74-106); Sodium Level 143 mmol/L (136-145)
[2021-01-18] MEDS: DULoxetine Hcl 60 MG Capsule PO ×2 (08:55→21:07)
[2021-01-18] MEDS: Gabapentin 100 MG Capsule PO ×2 (08:55→21:06)
[2021-01-18] MEDS: Hydroxychloroquine 200 MG Tablet PO ×2 (08:55→21:07)
[2021-01-18] MEDS: buPROPion 75 MG Tablet PO ×2 (08:55→21:06)
[2021-01-18] MEDS: Juven (unflavored) Packet 1 PACKET PO ×2 (08:55→16:16)
[2021-01-18] MEDS: Menthol/Lanolin/Calamine/Znox 113 GM Tube 1 APPLIC TOPICAL ×2 (08:56→21:06)
[2021-01-18] MEDS: Tolterodine Tartrate 4 MG CAP.SA PO (08:56)
[2021-01-18] MEDS: Acetaminophen 325 MG Tablet 650 MG PO ×2 (08:58→20:23)
--- NOTE | 2021-01-18 10:21 | CASEMGMT ---
RN CM chart review: Patient was admitted 12/31-01/09 for abdominal wall cellulitis and abdominal abscess. Patient went to surgery on 01/05 for I&D of abdominal abscess, removal of mesh, small bowel resection, and lysis of adhesions. See RN CM assessment from 01/01. Patient was discharged to TCU. Patient returned 01/15 for coffee ground emesis. Hgb 5.4. Patient has received 4 units of blood products. Plan is for patient to return to TCU when medically stable. Disposition Plan: TCU
[2021-01-18] MEDS: Pantoprazole Sodium 40 MG Tablet PO ×2 (11:39→21:07)
[2021-01-18] MEDS: Furosemide 40 MG Tablet PO (11:39)
[2021-01-18] MEDS: Ferrous Sulfate 325 MG Tablet PO (11:39)
--- NOTE | 2021-01-18 12:27 | RAD_ITS ---
STUDY: X-RAY CHEST REASON FOR EXAM: Female, 85 years old. POSS ASPIRATION TECHNIQUE: AP and lateral views of the chest. COMPARISON: Comparison is made with prior study dated 01/06/2021. FINDINGS: EKG electrodes are seen. The lungs are clear and expanded. There is no demonstrated pleural abnormality. Normal size heart. Normal mediastinum and georgi. Normal visualized pulmonary arteries. There is atherosclerotic calcification of the aortic arch with tortuosity. There are diffuse degenerative changes of the visualized thoracic spine. Normal visualized ribs, clavicles, and shoulders. Hiatal hernia. RAD/Chest PA and Lateral IMPRESSION: Hiatal hernia. The lungs are clear. Electronically Signed: Sandoval Arteaga MD at 14:18 EDT , Service support ,
[2021-01-18 13:52] LABS: Pathologist Review Reviewed
--- NOTE | 2021-01-18 14:17 | NURSING ---
wound photo: abdomen
--- NOTE | 2021-01-18 14:59 | PN.HOSP_ITS ---
Subjective Subjective Patient seen and examined. She had no complaints this morning. Review of systems was otherwise negative. Later in the day, she started coughing whilst eating. She was mildly tachycardic, but vitals were otherwise negative. Objective Data Objective Data Vital Signs: Vital Signs Temp Pulse Resp BP Pulse Ox 98.2 F 101 H 16 126/65 H 95 01/18/21 08:52 01/18/21 13:11 01/18/21 13:11 01/18/21 08:52 01/18/21 08:52 Oxygen Flow Rate (L/min) 2 Oxygen Delivery Method Room Air Weight: 195 lb 3.192 oz Body Mass Index (BMI) 38.1 Intake & Output: Intake and Output for Last 24 Hours 01/16/21 01/17/21 01/18/21 23:59 23:59 23:59 Intake Total 940 / 940 1160 / 1160 Output Total 1460 / 1810 1925 / 1925 1425 / 1425 Balance -520 / -870 -765 / -765 -1425 / -1425 Lab / Micro Data Result Diagrams: 01/18/21 06:10 01/18/21 06:10 Labs: Laboratory Results - last 24 hr 01/15/21 01/15/21 01/17/21 07:00 09:25 15:10 WBC RBC Hgb 10.2 L Hct 32.1 L MCV MCH MCHC RDW Std Deviation RDW Coeff of Laxmi Plt Count MPV Immature Gran % (Auto) Neut % (Auto) Lymph % (Auto) [place] % (Auto) Eos % (Auto) Baso % (Auto) Absolute Neuts (auto) Absolute Lymphs (auto) Nucleated RBC % Diff Path Review Reviewed Sodium Potassium Chloride Carbon Dioxide Anion Gap BUN Creatinine Estim Creat Clear Calc Est GFR (MDRD) Af Amer Est GFR (MDRD) Non-Af BUN/Creatinine Ratio Glucose Calcium Crossmatch See Detail 01/18/21 01/18/21 06:10 06:10 WBC 4.9 RBC 3.47 L Hgb 9.9 L Hct 31.1 L MCV 89.6 MCH 28.5 MCHC 31.8 L RDW Std Deviation 54.5 H RDW Coeff of Laxmi 19.9 H Plt Count 176 MPV 9.2 Immature Gran % (Auto) 4.300 H Neut % (Auto) 63.6 Lymph % (Auto) 15.1 L [place] % (Auto) 11.9 H Eos % (Auto) 4.3 Baso % (Auto) 0.8 Absolute Neuts (auto) 3.1 Absolute Lymphs (auto) 0.74 L Nucleated RBC % 0 Diff Path Review Sodium 143 Potassium 4.0 Chloride 116 H Carbon Dioxide 23.0 Anion Gap 4 L BUN 57 H Creatinine 1.59 H Estim Creat Clear Calc 18.92 Est GFR (MDRD) Af Amer 40 L Est GFR (MDRD) Non-Af 33 L BUN/Creatinine Ratio 35.8 H Glucose 84 Calcium 8.8 Crossmatch Micro: Microbiology 01/15/21 09:15 Stool Stool Occult Blood (WILLIE) - Final Occult Blood Positive Radiography Diagnostic Testing: Radiology Impression Chest X-Ray 01/18/21 12:27 IMPRESSION: Hiatal hernia. The lungs are clear. Electronically Signed: Sandoval Arteaga MD at 14:18 EDT , Service support , Physical Exam Const alert, oriented x3 and no apparent distress Exam Limitations: no limitations HEENT head/scalp atraumatic and moist oral mucous membranes Head and Scalp: normocephalic Eyes PERRL, EOMs intact bilaterally and conjunctivae normal Neck no lymphadenopathy and supple Resp normal respiratory effort, no retractions, no use of accessory muscles and clear to auscultation bilaterally Cardio regular rate, regular rhythm, S1 normal heart sound and S2 normal heart sound GI normal to inspection, nondistended, normoactive bowel sounds, soft to palpation, non-tender and non-distended Extremity normal to inspection and full ROM Extremity Narrative: 2+ bipedal edema of lower extremities General Extremity: edema Peripheral Pulses: Yes pulses 2+ throughout Skin no rashes or lesions noted Neuro oriented x3 Sensorium / Orientation: awake and alert Psych affect normal Assessment & Plan Assessment/Plan (1) Severe sepsis: (2) Acute upper gastrointestinal bleeding: PLAN: #UGI bleed * EGD showed an ulcer with an adherent clot * On PO pantoprazole 40mg bid * Hb today is 9.9. * on carafate * general surgery on board. Get repeat H&h to check on Hb. * #Hypertension: * meds were on hold due to hypotension and anemia * will resume meds * #CKD 3B * stable * #Rheumatoid arthritis: on plaquenil #Depression: duloxetine. #Migraine: rizatriptan. DVT prophylaxis: SCds Charges/Coding Visit Charges Inpatient E&M: 88342 Subs Hosp L2
[2021-01-18 15:09] LABS: Hematocrit 33.3 % (37-47); Hemoglobin 10.6 g/dL (12.0-15.0)
[2021-01-18] MEDS: MELATONIN 3 MG TABLET PO (21:06)
[2021-01-18] MEDS: Gabapentin 300 MG Capsule PO (21:06)
[2021-01-18] MEDS: Pramipexole Di-HCl 0.25 MG Tablet PO (21:06)
[2021-01-18] MEDS: Nystatin Powder 15gm Bottle 1 APPLIC TOPICAL (21:07)
[2021-01-19] VITALS (8 sets, daily range): BP systolic 129–139; BP diastolic 55–75; PULSE 74–109; RESP 16–20; TEMP 36.6–37; O2SAT 94–98
[2021-01-19 05:46] LABS: Absolute Lymphocyte Count 0.63 X10^3/uL (0.83-4.51); Absolute Neutrophil Count 3.7 X10^3/uL (2.0-7.7); Basophil# 0.03 X10^3/uL; Basophil% 0.6 % (0-1); Differential Indicated SCAN CRITERIA MET; Eosinophil# 0.22 X10^3/uL; Eosinophils% 4.2 % (0-5); Hematocrit 31.2 % (37-47); Hemoglobin 9.8 g/dL (12.0-15.0); Lymphocyte # 0.63 X10^3/ul (0.83-4.51); Lymphocyte % 11.9 % (19-41); Mean Corp Hgb Conc 31.4 g/dL (32-36); Mean Corpuscular Hgb 28.4 pg (27.0-32.0); Mean Corpuscular Volume 90.4 fL (81-99); Mean Platelet Vol. 8.9 fl (6.2-12.0); Monocyte# 0.62 X10^3/uL; Monocyte% 11.7 % (0-10); NRBC Flagged by Analyzer 0 % (0-5); Neutrophil # 3.68 X10^3/uL (2.7-7.7); Neutrophil % 69.5 % (47-70); POSITIVE MORPHOLOGY YES; Platelet Count 167 K/mm3 (150-450); RBC Distribution Width CV 20.6 % (11.6-14.6); RBC Distribution Width SD 55.5 fl (35.1-43.9); Red Blood Count 3.45 M/mm3 (4.2-5.4); White Blood Count 5.3 K/mm3 (4.4-11.0)
[2021-01-19 06:07] LABS: Anion Gap 7 (5-15); BUN 52 mg/dL (7-18); BUN/Creat Ratio 33.1 RATIO (10-20); Calcium,Total 8.5 mg/dL (8.5-10.1); Chloride 111 mmol/L (98-107); Creatinine, Serum 1.57 mg/dL (0.55-1.02); EST Glomerular Filtration Rate 33 mL/min (>60); Est Glom Filt Rate - Afr Amer 40 mL/min (>60); Estimated Creatinine Clearance 19.16 ml/min; Glucose 96 mg/dL (74-106); Potassium 4.1 mmol/L (3.5-5.1); Sodium Level 140 mmol/L (136-145)
[2021-01-19] MEDS: Sucralfate 1 GM Tablet PO ×2 (06:12→11:27)
[2021-01-19] MEDS: Ipratropium/Albuterol Sulfate 3 ML AMPUL.NEB INHALATION ×2 (07:10→15:26)
[2021-01-19] MEDS: Pantoprazole Sodium 40 MG Tablet PO (08:22)
[2021-01-19] MEDS: Juven (unflavored) Packet 1 PACKET PO (08:22)
[2021-01-19] MEDS: Acetaminophen 325 MG Tablet 650 MG PO (08:22)
[2021-01-19] MEDS: buPROPion 75 MG Tablet PO (08:22)
[2021-01-19] MEDS: Furosemide 40 MG Tablet PO (08:23)
[2021-01-19] MEDS: Hydroxychloroquine 200 MG Tablet PO (08:23)
[2021-01-19] MEDS: Tolterodine Tartrate 4 MG CAP.SA PO (08:23)
[2021-01-19] MEDS: DULoxetine Hcl 60 MG Capsule PO (08:23)
[2021-01-19] MEDS: Menthol/Lanolin/Calamine/Znox 113 GM Tube 1 APPLIC TOPICAL (08:23)
[2021-01-19] MEDS: Gabapentin 100 MG Capsule PO (08:23)
[2021-01-19] MEDS: Nystatin Powder 15gm Bottle 1 APPLIC TOPICAL (08:23)
--- NOTE | 2021-01-19 10:36 | PCM.DC.SUM ---
Providers Date of Admission: 01/15/21 Primary Care Physician: Dr. Candice Amado, Consultations 01/15/21 13:38 Consult: General Surgery Routine Consulting Provider: Prema Saucedo Reason for Consult: UGIB EMERGENT Consult: No MD Notified: Yes Date Notified: 01/15/21 Time Notified: 10:44 Method of Notification: Verbal Reason For Visit: UGIB Diagnosis Discharge Diagnosis (1) Severe sepsis: Status: Resolved Code(s): A41.9 - Sepsis, unspecified organism; R65.20 - Severe sepsis without septic shock (2) Acute upper gastrointestinal bleeding: Status: Acute Code(s): K92.2 - Gastrointestinal hemorrhage, unspecified Medications at Discharge Home Medications atenolol 25 mg PO BID 06/09/15 sumatriptan succinate [Imitrex] 100 mg PO .X1 PRN MDD MIGRAINE 06/09/15 multivitamin with folic acid [Thera] 1 tab PO DAILY 01/29/18 ferrous sulfate 325 mg PO DAILY 10/19/19 albuterol sulfate 1 - 2 puff INHALATION Q4H PRN PRN #1 inhaler 10/23/19 duloxetine 60 mg PO BID 12/31/20 gabapentin 100 mg PO BID 12/31/20 gabapentin 300 mg capsule 300 mg PO QHS cap 12/31/20 hydroxychloroquine 200 mg tablet 200 mg PO BID tab 12/31/20 ropinirole 0.5 mg tablet 0.5 mg PO QHS tab 12/31/20 Calmoseptine 1 applic TOPICAL TID #71 g 01/09/21 acetaminophen [Tylenol] 650 mg PO Q6H PRN PRN 30 Days #30 tab 01/09/21 amlodipine 10 mg PO DAILY 01/09/21 ipratropium-albuterol 3 ml INHALATION Q6HWA.RT 01/09/21 levofloxacin 500 mg PO Q48@0600 01/09/21 nystatin 1 applic TOPICAL TID 01/09/21 polyethylene glycol 3350 17 g PO DAILY PRN 30 Days #30 ea 01/09/21 sennosides-docusate sodium [Stool Softener-Stimulant Laxat] 1 tab-cap PO BID 01/09/21 Jonathan 1 ea PO BID 01/15/21 tolterodine [Detrol LA] 4 mg PO DAILY 01/15/21 bupropion HCl 75 mg PO BID 01/16/21 pramipexole [Mirapex] 0.25 mg PO QHS 01/16/21 enoxaparin [Lovenox] 80 mg SUBCUT Q12H #0 ml 01/19/21 furosemide 40 mg PO DAILY #30 tab 01/19/21 pantoprazole 40 mg PO BID #60 tab 01/19/21 potassium chloride 20 meq PO DAILY #30 tab 01/19/21 sucralfate 1 g PO 1HR_ACHS #90 tab 01/19/21 Hospital Course Operations None Procedures EGD Summary of Care Provided Minutes Spent on Discharge: 40 Hospital Course: Patient is an 85-year-old female with a past medical history as outlined was admitted via the ED on 01/15/2021 for GI bleed. Patient was transferred from [facility] through the ED after she was found to have coffee-ground emesis on the morning of admission as well as dark stools. Hemoglobin was 5.4 when she got to the ED. She had been on Lovenox twice daily on account of history of DVT. She denied any abdominal pain but admitted to nausea. She had recently had surgery for a subcutaneous abscess which was a complication of her previous surgery for ventral hernia with mesh repair. She had had a wound aspirated by radiology and cultured Bacteroides, Staphylococcus and Klebsiella. She had had debridement done on 01/05/2021 and completed a 5-day course of Levaquin and Flagyl. She was admitted and managed for acute on chronic anemia due to upper GI bleed. General surgery was consulted. She was placed on IV Protonix drip. She had EGD which showed an adherent clot to her peptic ulcer. Patient's hemoglobin stabilized. Hospital stay was complicated by to get episodes while she takes to speech therapy was consulted and she was put on a modified diet for dysphagia. Patient remained stable and was discharged back to the transitional care unit on 01/19/2021. She is to follow-up with her primary care doctor and general surgery. Patient seen and examined prior to discharge. She had no complaints and felt well. Review of symptoms otherwise negative. Labs and vitals reviewed. Home medication reviewed and reconciled. Physical Exam Const alert, oriented x3 and no apparent distress General Appearance: cooperative Exam Limitations: no limitations HEENT normocephalic, head/scalp atraumatic and moist oral mucous membranes Eyes PERRL, EOMs intact bilaterally and conjunctivae normal Neck no lymphadenopathy, supple and no JVD Resp normal respiratory effort, no retractions, no use of accessory muscles and clear to auscultation bilaterally Auscultation: Negative for crackles, rales, rhonchi or wheezes Cardio regular rate, regular rhythm, S1 normal heart sound, S2 normal heart sound and no murmurs GI normal to inspection, nondistended, normoactive bowel sounds, soft to palpation, non-tender and non-distended; Negative for hepatosplenomegaly Inspection: incision intact and healing well Palpation: tender other (Diffusely around the incision and previous operative site) Extremity normal to inspection and full ROM Extremity Narrative: 2+ bipedal edema of lower extremities General Extremity: edema Skin no rashes or lesions noted Neuro oriented x3, no focal motor deficits and no sensory deficits noted Sensorium / Orientation: awake and alert Psych affect normal Appearance: appropriate Weight / BMI Weight Weight: 195 lb 3.192 oz Body Mass Index (BMI) 38.1 ABG / Lab / Microbiology Data Result Diagrams: 01/19/21 05:24 01/19/21 05:24 Laboratory: Laboratory Results - last 24 hr 01/15/21 01/18/21 01/19/21 09:25 14:37 05:24 WBC RBC Hgb 10.6 L Hct 33.3 L MCV MCH MCHC RDW Std Deviation RDW Coeff of Laxmi Plt Count MPV Immature Gran % (Auto) Neut % (Auto) Lymph % (Auto) Montgomery % (Auto) Eos % (Auto) Baso % (Auto) Absolute Neuts (auto) Absolute Lymphs (auto) Nucleated RBC % Diff Path Review Reviewed Sodium 140 Potassium 4.1 Chloride 111 H Carbon Dioxide 22.0 Anion Gap 7 BUN 52 H Creatinine 1.57 H Estim Creat Clear Calc 19.16 Est GFR (MDRD) Af Amer 40 L Est GFR (MDRD) Non-Af 33 L BUN/Creatinine Ratio 33.1 H Glucose 96 Calcium 8.5 01/19/21 05:24 WBC 5.3 RBC 3.45 L Hgb 9.8 L Hct 31.2 L MCV 90.4 MCH 28.4 MCHC 31.4 L RDW Std Deviation 55.5 H RDW Coeff of Laxmi 20.6 H Plt Count 167 MPV 8.9 Immature Gran % (Auto) 2.100 H Neut % (Auto) 69.5 Lymph % (Auto) 11.9 L Montgomery % (Auto) 11.7 H Eos % (Auto) 4.2 Baso % (Auto) 0.6 Absolute Neuts (auto) 3.7 Absolute Lymphs (auto) 0.63 L Nucleated RBC % 0 Diff Path Review Sodium Potassium Chloride Carbon Dioxide Anion Gap BUN Creatinine Estim Creat Clear Calc Est GFR (MDRD) Af Amer Est GFR (MDRD) Non-Af BUN/Creatinine Ratio Glucose Calcium Microbiology: Microbiology 01/15/21 09:15 Stool Stool Occult Blood (WILLIE) - Final Occult Blood Positive Radiography Diagnostic Testing: Radiology Impression Chest X-Ray 01/18/21 12:27 IMPRESSION: Hiatal hernia. The lungs are clear. Electronically Signed: Sandoval Arteaga MD at 14:18 EDT , Service support , D/C Instructions Discharge Diet: - (regular mechanical, minced moist with thin liquids) Discharge Activity: Return to Normal Activity Weight Bearing Status: Weight bearing as tolerated Call your doctor if you observe: Shortness of breath, Swelling in the ankles, Increased palpitations (irregular heartbeat) and - (abdominal pain, dark stools or emesis) Meaningful Use Info Meaningful Use Diagnoses (Choose all that apply): None applicable Discharge Plan Admission Admit Date/Time: 01/15/21 10:44 Attending Provider: Danielle Berman Primary Care Provider: Candice Amado Consulting Providers: Prema Saucedo Instructions Patient Instructions: ED Upper GI Bleeding (Stable) Discharge Orders/Prescriptions Prescriptions: New furosemide 40 mg Tablet 40 mg PO DAILY Qty: 30 RF: 1 sucralfate 1 gram Tablet 1 g PO 1HR_ACHS Qty: 90 RF: 1 pantoprazole 40 mg Tablet,Delayed Release (Dr/Ec) 40 mg PO BID Qty: 60 RF: 1 potassium chloride 20 mEq tablet extended release 20 meq PO DAILY Qty: 30 RF: 0 Continued gabapentin 300 mg capsule 300 mg PO QHS RF: 0 ropinirole 0.5 mg tablet 0.5 mg PO QHS RF: 0 hydroxychloroquine 200 mg tablet 200 mg PO BID RF: 0 sumatriptan succinate [Imitrex] 100 MG tablet 100 mg PO .X1 PRN MDD MIGRAINE RF: 0 atenolol 25 MG tablet 25 mg PO BID RF: 0 multivitamin with folic acid [Thera] 1 TABLET tablet 1 tab PO DAILY RF: 0 ferrous sulfate 325 MG tablet 325 mg PO DAILY RF: 0 albuterol sulfate 1 PUFF inhaler 1 - 2 puff inhalation Q4H PRN PRN (Reason: Sob &/Or Wheezing) Qty: 1 RF: 0 gabapentin 100 mg capsule 100 mg PO BID RF: 0 duloxetine 60 mg capsule,delayed release(DR/EC) 60 mg PO BID RF: 0 polyethylene glycol 3350 17 gram Powder In Packet 17 g PO DAILY PRN (Reason: constipation) 30 Days Qty: 30 RF: 0 Calmoseptine 0.44-20.6 % Ointment 1 applic topical TID Qty: 71 RF: 0 acetaminophen [Tylenol] 325 mg Tablet 650 mg PO Q6H PRN PRN (Reason: Pain Score 1-10/Temp > 100.7 F) 30 Days Qty: 30 RF: 0 ipratropium-albuterol 0.5 mg-3 mg(2.5 mg base)/3 mL solution for nebulization 3 ml inhalation Q6HWA.RT RF: 0 amlodipine 10 mg tablet 10 mg PO DAILY RF: 0 nystatin 1 APPLIC powder 1 applic TOPICAL TID RF: 0 levofloxacin 500 mg tablet 500 mg PO Q48@0600 RF: 0 sennosides-docusate sodium [Stool Softener-Stimulant Laxat] 8.6-50 mg tablet 1 tab-cap PO BID RF: 0 tolterodine [Detrol LA] 4 mg Capsule,Extended Release 24hr 4 mg PO DAILY RF: 0 Jonathan 7-7-1.5 gram Powder In Packet 1 ea PO BID RF: 0 bupropion HCl 75 mg Tablet 75 mg PO BID RF: 0 pramipexole [Mirapex] 0.25 mg Tablet 0.25 mg PO QHS RF: 0 enoxaparin [Lovenox] 80 mg/0.8 mL syringe 80 mg subcut Q12H Qty: 0 RF: 0 Discontinued metronidazole 500 mg tablet 500 mg PO TID RF: 0 Referrals / Follow Up: Nnamdi Cooper MD [STAFF PHYSICIAN] - Within 2 Weeks Candice Amado DO [Primary Care Provider] - Within 2 Weeks Disposition Disposition (needs filled in before D/C Order can be placed): Care Home Facility Charges/Coding Visit Charges Inpatient E&M: 55421 Disch Hosp
[2021-01-19] MEDS: Ferrous Sulfate 325 MG Tablet PO (11:27)
--- NOTE | 2021-01-19 13:18 | TREXTCAR_ITS ---
Diet 01/18/21 07:17 Diet: Regular - General Food consistency:: Mechanical (Minced/Moist) Liquid Consistency:: Regular/Thin Is pt able to select menu?: No Diet Comments: Direct supervision, alternate liquids and solids Wound(s) ABDOMEN: Wound Type: Open Surgical Wound Dressing Change: Wet to Dry Dressing Right inner Buttock: Wound Type: Pressure Injury Problem/Diagnosis (1) Severe sepsis: Status: Resolved (2) Acute upper gastrointestinal bleeding: Status: Acute Allergies/Procedures Done in Hospital Allergies No Known Allergies Allergy (Verified 01/15/21 09:17) Type of Care/Length of Stay Estimated LOS: Convalescent Care Less Than 30 days Type of Care Needed: Skilled Rehab Potential: Fair Prognosis: Fair Additional Orders/Day of Discharge Day of Discharge: 01/19/21 Dietary and Speech Recommendations Dietitian Recommendations/Changes: advance diet as tolerated to transitional/regular. Jonathan BID for wound healing. Consider magic cup w/ meals when PO diet resumed. Discharge Plan Admission Admit Date/Time: 01/15/21 10:44 Primary Reason for Your Visit: UGI bleed Attending Provider: Danielle Berman Primary Care Provider: Candice Amado Consulting Providers: Prema Saucedo Instructions Patient Instructions: ED Upper GI Bleeding (Stable) Discharge Orders/Prescriptions Prescriptions: New furosemide 40 mg Tablet 40 mg PO DAILY Qty: 30 RF: 1 sucralfate 1 gram Tablet 1 g PO 1HR_ACHS Qty: 90 RF: 1 pantoprazole 40 mg Tablet,Delayed Release (Dr/Ec) 40 mg PO BID Qty: 60 RF: 1 potassium chloride 20 mEq tablet extended release 20 meq PO DAILY Qty: 30 RF: 0 Continued gabapentin 300 mg capsule 300 mg PO QHS RF: 0 ropinirole 0.5 mg tablet 0.5 mg PO QHS RF: 0 hydroxychloroquine 200 mg tablet 200 mg PO BID RF: 0 sumatriptan succinate [Imitrex] 100 MG tablet 100 mg PO .X1 PRN MDD MIGRAINE RF: 0 atenolol 25 MG tablet 25 mg PO BID RF: 0 multivitamin with folic acid [Thera] 1 TABLET tablet 1 tab PO DAILY RF: 0 ferrous sulfate 325 MG tablet 325 mg PO DAILY RF: 0 albuterol sulfate 1 PUFF inhaler 1 - 2 puff inhalation Q4H PRN PRN (Reason: Sob &/Or Wheezing) Qty: 1 RF: 0 gabapentin 100 mg capsule 100 mg PO BID RF: 0 duloxetine 60 mg capsule,delayed release(DR/EC) 60 mg PO BID RF: 0 polyethylene glycol 3350 17 gram Powder In Packet 17 g PO DAILY PRN (Reason: constipation) 30 Days Qty: 30 RF: 0 Calmoseptine 0.44-20.6 % Ointment 1 applic topical TID Qty: 71 RF: 0 acetaminophen [Tylenol] 325 mg Tablet 650 mg PO Q6H PRN PRN (Reason: Pain Score 1-10/Temp > 100.7 F) 30 Days Qty: 30 RF: 0 ipratropium-albuterol 0.5 mg-3 mg(2.5 mg base)/3 mL solution for nebulization 3 ml inhalation Q6HWA.RT RF: 0 amlodipine 10 mg tablet 10 mg PO DAILY RF: 0 nystatin 1 APPLIC powder 1 applic TOPICAL TID RF: 0 levofloxacin 500 mg tablet 500 mg PO Q48@0600 RF: 0 sennosides-docusate sodium [Stool Softener-Stimulant Laxat] 8.6-50 mg tablet 1 tab-cap PO BID RF: 0 tolterodine [Detrol LA] 4 mg Capsule,Extended Release 24hr 4 mg PO DAILY RF: 0 Jonathan 7-7-1.5 gram Powder In Packet 1 ea PO BID RF: 0 bupropion HCl 75 mg Tablet 75 mg PO BID RF: 0 pramipexole [Mirapex] 0.25 mg Tablet 0.25 mg PO QHS RF: 0 enoxaparin [Lovenox] 80 mg/0.8 mL syringe 80 mg subcut Q12H Qty: 0 RF: 0 Discontinued metronidazole 500 mg tablet 500 mg PO TID RF: 0 Referrals / Follow Up: Nnamdi Cooper MD [STAFF PHYSICIAN] - Within 2 Weeks Candice Amado DO [Primary Care Provider] - Within 2 Weeks Disposition Disposition (needs filled in before D/C Order can be placed): [facility]-Way Facility
--- NOTE | 2021-01-19 13:42 | CASEMGMT ---
Patient is ready to return to TCU today. Orders were copied. SW notified patient she will be returning to TCU today. She would like SW to call her daughter and notify her. SW called patient's daughter and let her know patient will be headed back to TCU today. She asked about visitation. AIDA told her she has to call and schedule visits with patient. She asked how many people at a time. AIDA told her SW thinks it is 2 people at a time, but she should ask to be sure. Plan: d/c back to TCU under skilled level of care. Marbella Miles [employer]
== END 2021-01-19 16:12 | disposition skilled nursing facility (03) | DRG 871 ==
LOC: ED 10:30 → PCU 11:00
PROVIDERS: Surgery; Admitting Provider Family Medicine; Emergency Provider Emergency Medicine; PCP Internal Medicine; Visit Provider Student in an Organized Health Care Education/Training Program
PROC: 0DJ08ZZ Inspection of Upper Intestinal Tract, Via Natural or Artificial Opening Endoscopic (ICD-10-PCS; CPT 43235; principal; 2021-01-15 12:25)
DX: A41.9 Sepsis, unspecified organism (principal); K25.4 Chronic or unspecified gastric ulcer with hemorrhage; R65.20 Severe sepsis without septic shock; D50.0 Iron deficiency anemia secondary to blood loss (chronic); E78.5 Hyperlipidemia, unspecified; I12.9 Hypertensive chronic kidney disease with stage 1 through stage 4 chronic kidney disease, or unspecified chronic kidney disease; N18.32 Chronic kidney disease, stage 3b; D63.1 Anemia in chronic kidney disease; F41.9 Anxiety disorder, unspecified; M15.9 Polyosteoarthritis, unspecified; G89.29 Other chronic pain; R32 Unspecified urinary incontinence; M06.9 Rheumatoid arthritis, unspecified; F32.9 Major depressive disorder, single episode, unspecified; K44.9 Diaphragmatic hernia without obstruction or gangrene; G43.909 Migraine, unspecified, not intractable, without status migrainosus; Z86.718 Personal history of other venous thrombosis and embolism; Z79.899 Other long term (current) drug therapy; Z79.01 Long term (current) use of anticoagulants; Z99.81 Dependence on supplemental oxygen; Z98.890 Other specified postprocedural states; R13.10 Dysphagia, unspecified
CPT/HCPCS: 36415; 71046; 80048; 82274; 83605; 83690; 85014; 85018; 85025; 86644; 86850; 86900; 86901; 86920; 86922; 92610; 93005; 94640; 97110; 97150; 97162; 97166; 97530; 97535; 99285; J7030; J7040; P9016; P9040; A4216; J2405; J3490

== ENCOUNTER 2021-01-19 16:35 | Inpatient (IN) | payer MEDICARE, BC, SELFPAY ==
[2021-01-15 13:26] VITALS: BMI 38.1
[2021-01-19] MEDS: Acetaminophen 325 MG Tablet 650 MG PO (20:17)
--- NOTE | 2021-01-19 21:07 | HP.PCM_ITS ---
HPI - General General Date of Admission: 01/19/21 HPI Narrative 01/15/2021 LOLLY HUSAIN, is a 85 Female TCU resident who presents to [facility] Emergency Department with coffee ground emesis. Hemoglobin 5.5, nausea/vomiting, coffee ground emesis, black stools. 01/15/2021 Admit to Hospital. NPO, Pantoprazole drip, Hold Lovenox, consult General Surgery for Upper GI bleed. Hold Blood pressure medications for hypotension. Transfuse PRBC. 01/15/2021 Dr. Saucedo performed EGD noted coffee grounds in entire stomach. Non-bleeding gastric ulcer with adherent clot. Pantoprazole 40MG IV twice daily. 01/16/2021 Hemoglobin 7.4 after transfusion. On iron for anemia. 01/17/2021 Repeat Hemoglobin 6.7, transfuse 2 more units PRBC. Carafate added to Pantoprazole for Upper GI bleed. 01/18/2021 No abdominal pain, some dark stools overnight. Hemoglobin 9.9, Advance diet. 01/18/2021 Coughing while eating. Speech Therapy recommended modified diet. 01/19/2021 Admit to TCU with debility, here for rehabilitation, strengthening, prior to discharge home with family. [facility] Medical History Abnormal bruising Anxiety Chronic neck and back pain Difficulty balancing when standing DVT (deep venous thrombosis) Hearing loss, left Hearing loss, right Incontinence Knee pain Migraines Non-smoker On home oxygen therapy Polyosteoarthritis Polyosteoarthritis Severe headache Shoulder pain SOB (shortness of breath) Home Medications atenolol 25 mg PO BID 06/09/15 [History Last Taken 12/31/20] sumatriptan succinate [Imitrex] 100 mg PO .X1 PRN PRN 06/09/15 [History Last Taken 01/14/21 22:05] multivitamin with folic acid [Thera] 1 tab PO DAILY 01/29/18 [History Last Taken 01/15/21 08:10] ferrous sulfate 325 mg PO DAILY 10/19/19 [History Last Taken 01/15/21 12:00] albuterol sulfate 1 - 2 puff INHALATION Q4H PRN PRN #1 inhaler 10/23/19 [Rx Last Taken Unknown] duloxetine 60 mg PO BID 12/31/20 [History Last Taken 01/14/21 09:00] gabapentin 100 mg PO BID 12/31/20 [History Last Taken 01/15/21 08:10] gabapentin 300 mg capsule 300 mg PO QHS cap 12/31/20 [History Last Taken 01/14/21 22:00] hydroxychloroquine 200 mg tablet 200 mg PO BID tab 12/31/20 [History Last Taken 01/15/21 06:30] ropinirole 0.5 mg tablet 0.5 mg PO QHS tab 12/31/20 [History Last Taken 01/14/21 22:00] Calmoseptine 1 applic TOPICAL TID #71 g 01/09/21 [Rx Last Taken 01/15/21 06:30] acetaminophen [Tylenol] 650 mg PO Q6H PRN PRN 30 Days #30 tab 01/09/21 [Rx Last Taken 01/14/21 21:00] amlodipine 10 mg PO DAILY 01/09/21 [History Last Taken 01/15/21 09:00] ipratropium-albuterol 3 ml INHALATION Q6HWA.RT 01/09/21 [History Last Taken 01/15/21 06:40] levofloxacin 500 mg PO Q48@0600 01/09/21 [History Last Taken 01/15/21 06:30] nystatin 1 applic TOPICAL TID 01/09/21 [History Last Taken 01/15/21 06:30] polyethylene glycol 3350 17 g PO DAILY PRN 30 Days #30 ea 01/09/21 [Rx Last Taken Unknown] sennosides-docusate sodium [Stool Softener-Stimulant Laxat] 1 tab-cap PO BID 01/09/21 [History Last Taken 01/15/21 09:00] Jonathan 1 ea PO BID 01/15/21 [History Last Taken 01/15/21 08:09] tolterodine [Detrol LA] 4 mg PO DAILY 01/15/21 [History Last Taken 01/15/21 0 9:00] bupropion HCl 75 mg PO BID 01/16/21 [History Last Taken 01/15/21 06:30] pramipexole [Mirapex] 0.25 mg PO QHS 01/16/21 [History Last Taken 01/14/21 21:00] enoxaparin [Lovenox] 80 mg SUBCUT Q12H #0 ml 01/19/21 [Rx Last Taken 01/14/21 17:00] furosemide 40 mg PO DAILY 01/19/21 [History Last Taken Unknown] pantoprazole 40 mg PO BID 01/19/21 [History Last Taken Unknown] potassium chloride 20 meq PO DAILY 01/19/21 [History Last Taken Unknown] sucralfate 1 g PO 1HR_ACHS 01/19/21 [History Last Taken Unknown] Allergy/AdvReac Type Severity Reaction Status Date / Time No Known Allergies Allergy Verified 01/15/21 09:17 Family History Mother No significant active problems Other Headache Surgical History History of appendectomy History of back surgery History of cholecystectomy History of foot surgery History of hernia surgery History of surgery on wrist S/P small bowel resection Small bowel perforation Social History household members: family housing: house Smoking Status: Never smoker alcohol intake: never ROS Constitutional Constitutional: Denies chills, fever(s) or weight gain ENT HEENT: Denies headache(s), nasal congestion or nasal discharge Cardiovascular Cardiovascular: Denies chest pain or palpitations Respiratory/Chest Respiratory/Chest: Denies cough, excessive phlegm production or shortness of breath with exertion Gastrointestinal Gastrointestinal: Denies abdominal pain, nausea or vomiting Genitourinary Genitourinary: Denies dysuria Musculoskeletal Musculoskeletal: Denies joint pain or joint swelling Integumentary Integumentary: Denies rash or wounds Neurologic Neurologic: Denies focal weakness, numbness or tingling Psychiatric Psychiatric: Reports auditory hallucinations; Denies anxiety, depression, homicidal ideation or suicidal ideation Vital Signs Vital Signs Vital Signs: Weight Body Mass Index (BMI) 38.1 Physical Exam Const alert and oriented x3 General Appearance: cooperative HEENT normocephalic Eyes PERRL and EOMs intact bilaterally Neck supple, no JVD and no carotid bruits Resp normal respiratory effort, normal air movement and clear to auscultation b ilaterally Cardio regular rate and regular rhythm GI normal to inspection, nondistended, normoactive bowel sounds, non-tender and non-distended GI Narrative: Adominal wound dressed, Indwelling Matos catheter. Extremity normal capillary refill General Extremity: Negative for edema Skin no rashes or lesions noted General Skin Exam: no breakdown Psych affect normal Appearance: appropriate Assessment & Plan Assessment/Plan (1) Debility: (2) Upper gastrointestinal bleed: (3) Acute anemia: (4) Gastric ulcer: (5) Dysphagia: (6) Abdominal abscess: (7) Cellulitis of abdominal wall: (8) Deep vein thrombosis: (9) Anxiety: (10) Hearing loss: (11) Migraine: (12) Osteoarthritis: PLAN: 85 year old female with below past medical history hospitalized for upper gastrointestinal bleed secondary to gastric ulcer, complicated by dysphagia, admittedd to TCU with debility, here for rehabilitation, strengthening, prior to discharge home with family. * Debility - PT/OT. * Cognition - ST. * Pain - Tylenol 1000MG Q6H PRN pain (1-10). * Bowel - Miralax 17MG daily PRN, Senna/colace 1 tablet BID. * Adult immunization - Administer Prevnar 13, Pneumovax 23, Fluzone, COVID19 vaccine. * DVT prophylaxis - Hold recent life threatening UGIB. * Shortness of breath - Duoneb 3ML Q6HWA, Albuterol 2.5MG Q4H PRN. * Hypertension - Atenolol 25MG BID, Amlodipine 10MG daily.. * Depression - Duloxetine 60MG twice daily, Wellbutrin 75MG twice daily, stable chronic intermediate use, GDR not recommended. * Iron deficiency anemia - Ferrous sulfate 325MG daily. * Edema - Lasix 40mG daily. * Neuropathic pain - Gabapentin 100MG BID, 300MG QHS. * Osteoarthritis - Plaquenil 200MG BID. * Skin irritation - Calmoseptine topical TID. * Nutrition - MVI daily. * Tinea Corporis - Nystatin powder topical TID. * Upper GI Bleed - Pantoprazole 40MG BID, Sucralfate 1GM QACHS. * Hypokalemia - Potassium chloride 20MEQ daily. * Restless Leg syndrome - Mirapex 0.25MG QHs. * Migraine - Maxalt 10MG x 1 PRN. * Urinary retention - Stop Tolterodine, voiding trials. * LLE DVT - I reviewed chart, resident had LLE DVT 08/2020, no other DVT/PE in hiral, she has been adequately treated, stop Lovenox.
[2021-01-19] MEDS: Rizatriptan Benzoate 10 MG Tablet PO (21:18)
[2021-01-19] MEDS: Gabapentin 300 MG Capsule PO (21:22)
[2021-01-19] MEDS: Sucralfate 1 GM Tablet PO (21:22)
[2021-01-19] MEDS: Pramipexole Di-HCl 0.25 MG Tablet PO (21:23)
[2021-01-19] MEDS: Nystatin Powder 15gm Bottle 1 APPLIC TOPICAL (21:23)
[2021-01-19] MEDS: Menthol/Lanolin/Calamine/Znox 113 GM Tube 1 APPLIC TOPICAL (21:24)
[2021-01-19 22:00] VITALS: PULSE 109; RESP 16; O2SAT 93
[2021-01-19 23:00] VITALS: BP 120/68; PULSE 109; RESP 16; TEMP 36.7; O2SAT 93; BMI 42.2
[2021-01-20 05:52] LABS: Absolute Lymphocyte Count 0.87 X10^3/uL (0.83-4.51); Absolute Neutrophil Count 2.5 X10^3/uL (2.0-7.7); Basophil# 0.04 X10^3/uL; Basophil% 0.9 % (0-1); Eosinophil# 0.21 X10^3/uL; Eosinophils% 4.7 % (0-5); Hematocrit 34.2 % (37-47); Hemoglobin 10.7 g/dL (12.0-15.0); Lymphocyte # 0.87 X10^3/ul (0.83-4.51); Lymphocyte % 19.6 % (19-41); Mean Corp Hgb Conc 31.3 g/dL (32-36); Mean Corpuscular Hgb 28.8 pg (27.0-32.0); Mean Corpuscular Volume 92.2 fL (81-99); Mean Platelet Vol. 9.2 fl (6.2-12.0); Monocyte# 0.67 X10^3/uL; Monocyte% 15.1 % (0-10); NRBC Flagged by Analyzer 0 % (0-5); Neutrophil # 2.54 X10^3/uL (2.7-7.7); POSITIVE MORPHOLOGY YES; Platelet Count 171 K/mm3 (150-450); RBC Distribution Width SD 58.1 fl (35.1-43.9); Red Blood Count 3.71 M/mm3 (4.2-5.4); White Blood Count 4.5 K/mm3 (4.4-11.0)
[2021-01-20 05:53] LABS: Differential Indicated SCAN CRITERIA MET
[2021-01-20 06:06] LABS: Anion Gap 3 (5-15); BUN 39 mg/dL (7-18); BUN/Creat Ratio 24.1 RATIO (10-20); Calcium,Total 8.9 mg/dL (8.5-10.1); Chloride 111 mmol/L (98-107); Creatinine, Serum 1.62 mg/dL (0.55-1.02); EST Glomerular Filtration Rate 32 mL/min (>60); Est Glom Filt Rate - Afr Amer 39 mL/min (>60); Estimated Creatinine Clearance 36.12 ml/min; Glucose 83 mg/dL (74-106); Potassium 4.4 mmol/L (3.5-5.1); Sodium Level 143 mmol/L (136-145)
[2021-01-20 06:21] LABS: Anisocytosis 1+; Differential Comment SCANNED; Macrocytosis RARE; Microcytosis RARE
[2021-01-20] MEDS: Atenolol 25 MG Tablet PO ×2 (06:36→17:05)
[2021-01-20] MEDS: Furosemide 40 MG Tablet PO (06:36)
[2021-01-20] MEDS: amLODIPine 10 MG Tablet PO (06:36)
[2021-01-20] MEDS: Sucralfate 1 GM Tablet PO ×4 (06:36→21:50)
[2021-01-20] MEDS: Gabapentin 100 MG Capsule PO ×2 (06:36→17:03)
[2021-01-20] MEDS: Pantoprazole Sodium 40 MG Tablet PO ×2 (06:36→17:03)
[2021-01-20] MEDS: Hydroxychloroquine 200 MG Tablet PO ×2 (06:36→17:03)
[2021-01-20] MEDS: Senna/Docusate Sodium 1 Tablet PO ×2 (06:37→17:04)
[2021-01-20] MEDS: DULoxetine Hcl 60 MG Capsule PO ×2 (06:37→17:02)
[2021-01-20] MEDS: buPROPion 75 MG Tablet PO ×2 (06:37→17:03)
[2021-01-20] MEDS: Nystatin Powder 15gm Bottle 1 APPLIC TOPICAL ×3 (06:37→21:50)
[2021-01-20] MEDS: Menthol/Lanolin/Calamine/Znox 113 GM Tube 1 APPLIC TOPICAL ×3 (06:37→21:50)
[2021-01-20 06:39] VITALS: BP 142/67; PULSE 109; RESP 18; O2SAT 97
[2021-01-20] MEDS: Ipratropium/Albuterol Sulfate 3 ML AMPUL.NEB INHALATION ×2 (07:26→19:09)
[2021-01-20 07:28] VITALS: PULSE 89; RESP 18; O2SAT 96
[2021-01-20] MEDS: Multivitamins,Therapeutic Tablet 1 TABLET PO (08:05)
[2021-01-20] MEDS: Ferrous Sulfate 325 MG Tablet PO (08:05)
[2021-01-20] MEDS: Tuberculin,Purif.prot.deriv. 50 TU/ML Vial 0.1 ML ID (10:12)
[2021-01-20] MEDS: Rizatriptan Benzoate 10 MG Tablet PO (10:17)
[2021-01-20 15:02] VITALS: BP 124/66; PULSE 63; RESP 16; TEMP 36.1; O2SAT 98
--- NOTE | 2021-01-20 15:22 | PCM.PN.RX ---
Progress Note - Pharmacy Subjective: TCU Admission Objective: Allergies No Known Allergies Allergy (Verified 01/15/21 09:17) Current Medications Generic Name Dose Route Start Last Admin Trade Name Pam PRN Reason Stop Dose Admin Acetaminophen 1,000 mg 01/19/21 21:30 Acetaminophen 500 Mg Tablet PO Q6H PRN PRN Pain Score 1-10 Albuterol Sulfate 2.5 mg 01/19/21 20:05 Albuterol 2.5 Mg/3 Ml Vial.Neb. INHALATION Q4H PRN Sob &/Or Wheezing Albuterol/Ipratropium 3 ml 01/19/21 18:45 01/20/21 07:26 Ipratropium/Albuterol Sulfate 3 Ml Ampul.Neb INHALATION 3 ml Q6HWA.RT LILLIAN Administration Amlodipine Besylate 10 mg 01/20/21 06:00 01/20/21 06:36 Amlodipine 10 Mg Tablet PO 10 mg DAILY LILLIAN Administration Atenolol 25 mg 01/20/21 06:00 01/20/21 06:36 Atenolol 25 Mg Tablet PO 25 mg BID LILLIAN Administration Bupropion HCl 75 mg 01/20/21 06:00 01/20/21 06:37 Bupropion 75 Mg Tablet PO 75 mg BID LILLIAN Administration Calamine/Phenol 1 applic 01/19/21 22:00 01/20/21 14:20 Menthol/Lanolin/Calamine/Znox 113 Gm Tube TOPICAL 1 applic TID LILLIAN Administration Protocol Duloxetine HCl 60 mg 01/20/21 06:00 01/20/21 06:37 Duloxetine Hcl 60 Mg Capsule PO 60 mg BID LILLIAN Administration Ferrous Sulfate 325 mg 01/20/21 08:00 01/20/21 08:05 Ferrous Sulfate 325 Mg Tablet PO 325 mg DAILYCM LILLIAN Administration Furosemide 40 mg 01/20/21 06:00 01/20/21 06:36 Furosemide 40 Mg Tablet PO 40 mg DAILY LILLIAN Administration Gabapentin 100 mg 01/20/21 06:00 01/20/21 06:36 Gabapentin 100 Mg Capsule PO 100 mg BID LILLIAN Administration Gabapentin 300 mg 01/19/21 22:00 01/19/21 21:22 Gabapentin 300 Mg Capsule PO 300 mg QHS LILLIAN Administration Hydroxychloroquine Sulfate 200 mg 01/20/21 06:00 01/20/21 06:36 Hydroxychloroquine 200 Mg Tablet PO 200 mg BID LILLIAN Administration L-Arginine/L-Glutamine/Calcium HMB 1 packet 01/20/21 17:00 Jonathan (Unflavored) Packet PO BIDCM [facility] Multivitamins 1 tablet 01/20/21 08:00 01/20/21 08:05 Multivitamins,Therapeutic Tablet PO 1 tablet DAILYCM [facility] Administration Non-Formulary Medication 20 meq 01/20/21 06:00 Potassium Chloride PO DAILY [facility] Nystatin 1 applic 01/19/21 22:00 01/20/21 14:20 Nystatin Powder 15gm Bottle TOPICAL 1 applic TID LILLIAN Administration Protocol Pantoprazole Sodium 40 mg 01/20/21 06:00 01/20/21 06:36 Pantoprazole Sodium 40 Mg Tablet PO 40 mg BID LILLIAN Administration Polyethylene Glycol 17 gm 01/19/21 18:44 Polyethylene Glycol 3350 17 Gm Packet PO DAILY PRN constipation Pramipexole Dihydrochloride 0.25 mg 01/19/21 22:00 01/19/21 21:23 Pramipexole Di-Hcl 0.25 Mg Tablet PO 0.25 mg QHS [facility] Administration Rizatriptan Benzoate 10 mg 01/19/21 20:12 01/20/21 10:17 Rizatriptan Benzoate 10 Mg Tablet PO 10 mg .X1 PRN PRN Administration Migraine Headache Senna/Docusate Sodium 1 tablet 01/20/21 06:00 01/20/21 06:37 Senna/Docusate Sodium 1 Tablet PO 1 tablet BID LILLIAN Administration Sucralfate 1 gm 01/19/21 22:00 01/20/21 10:11 Sucralfate 1 Gm Tablet PO 1 gm 1HR_ACHS LILLIAN Administration Tuberculin PPD 0.1 ml 01/27/21 10:00 Tuberculin,Purif.Prot.Deriv. 50 Tu/Ml Vial ID 01/27/21 10:01 X1 ONE Problem List (Last Reviewed 01/19/21 @ 21:[address] Neel Duran MD) Osteoarthritis (Acute) Migraine (Acute) Hearing loss (Acute) Anxiety (Acute) Deep vein thrombosis (Acute) Cellulitis of abdominal wall (Acute) Abdominal abscess (Acute) Dysphagia (Acute) Gastric ulcer (Acute) Acute anemia (Acute) Upper gastrointestinal bleed (Acute) Debility (Acute) Vital Signs Temp Pulse Resp BP Pulse Ox 97.0 F L 63 16 124/66 H 98 06/16/21 15:02 01/20/21 15:02 01/20/21 15:02 01/20/21 15:02 01/20/21 15:02 Oxygen Delivery Method Room Air Weight: 88.5 kg Body Mass Index (BMI) 42.2 Sodium 143 mmol/L (136-145) 01/20/21 05:10 Potassium 4.4 mmol/L (3.5-5.1) 01/20/21 05:10 Chloride 111 mmol/L (98-107) H 01/20/21 05:10 Carbon Dioxide 29.0 mmol/L (21.0-32.0) 01/20/21 05:10 Anion Gap 3 (5-15) L 01/20/21 05:10 BUN 39 mg/dL (7-18) H 01/20/21 05:10 Creatinine 1.62 mg/dL (0.55-1.02) H 01/20/21 05:10 Est GFR (MDRD) Af Amer 39 mL/min (>60) L 01/20/21 05:10 Est GFR (MDRD) Non-Af 32 mL/min (>60) L 01/20/21 05:10 BUN/Creatinine Ratio 24.1 RATIO (10-20) H 01/20/21 05:10 Glucose 83 mg/dL (74-106) 01/20/21 05:10 Assessment/Plan: 1. Pain: acetaminophen 1000mg PO Q6H PRN pain 1-05/16. Please continue to monitor for increased pain and PRN usage. 2. Hypertension: atenolol 25mg PO BID and amlodipine 10mg PO daily. Please continue to monitor BP (last 124/66), HR (last 63), and swelling. 3. Iron deficiency anemia: ferrous sulfate 325mg PO DAILYCM. Please continue to monitor hemoglobin (last 10.7g/dL) and for dark stools. 4. Edema: furosemide 40mg PO daily. Please continue to monitor potassium (last 4.4mmol/L), renal function, and swelling. 5. Neuropathic pain: gabapentin 100mg PO BID and 300mg PO QHS. Please continue to monitor renal function and confusion. 6. Osteoarthritis: hydroxychloroquine 200mg PO BID. Please continue to monitor CBC. 7. Upper GI bleed: pantoprazole 40mg PO BID and sucralfate 1gm PO 1HR_ACHS. Please continue to monitor for S/S of bleeding and diarrhea. 8. Shortness of breath: Duoneb 3mL inhalation Q6HWA.RT and albuterol 2.5mg inhalation Q4H PRN SOB and/or wheezing. Please continue to monitor for shortness of breath and wheezing. 9. Restless leg syndrome: pramipexole 0.25mg PO QHS. Please continue to monitor for restless legs. 10. Migraine: rizatriptan 10mg PO PRN migraine. Please continue to monitor for migraine. 11. Nutrition: multivitamin 1T PO daily. Please continue to monitor. Psychotropic Medications: 1. Depression: duloxetine 60mg PO BID and bupropion 75mg PO BID. Please see physician note regarding GDR. Unnecessary Medications: None Bowel Regimen: Miralax 17mg PO daily PRN constipation and senna/docusate 1T PO BID. Please continue to monitor for constipation and PRN usage. Date of Note:: 01/20/21
--- NOTE | 2021-01-20 15:32 | NURSING ---
Dressing changed at this time.
[2021-01-20] MEDS: Juven (unflavored) Packet 1 PACKET PO (17:03)
[2021-01-20] MEDS: Acetaminophen 500 MG Tablet 1000 MG PO (17:08)
[2021-01-20 19:09] VITALS: PULSE 91; RESP 16; O2SAT 98
[2021-01-20 21:50] VITALS: RESP 18
[2021-01-20] MEDS: Pramipexole Di-HCl 0.25 MG Tablet PO (21:50)
[2021-01-20] MEDS: Gabapentin 300 MG Capsule PO (21:50)
--- NOTE | 2021-01-21 04:11 | NURSING ---
wet to dry drsg changed at this time to ABD. pt tolerated well
[2021-01-21 04:21] VITALS: BP 127/77; PULSE 83; RESP 18; TEMP 36.4; O2SAT 96
[2021-01-21] MEDS: Menthol/Lanolin/Calamine/Znox 113 GM Tube 1 APPLIC TOPICAL ×3 (04:27→22:43)
[2021-01-21] MEDS: Nystatin Powder 15gm Bottle 1 APPLIC TOPICAL ×3 (04:27→22:43)
[2021-01-21] MEDS: buPROPion 75 MG Tablet PO ×2 (04:28→17:00)
[2021-01-21] MEDS: Hydroxychloroquine 200 MG Tablet PO ×2 (04:28→17:00)
[2021-01-21] MEDS: Senna/Docusate Sodium 1 Tablet PO (04:28)
[2021-01-21] MEDS: Atenolol 25 MG Tablet PO ×2 (04:28→17:01)
[2021-01-21] MEDS: Sucralfate 1 GM Tablet PO ×4 (04:28→22:43)
[2021-01-21] MEDS: Pantoprazole Sodium 40 MG Tablet PO ×2 (04:28→16:59)
[2021-01-21] MEDS: Furosemide 40 MG Tablet PO (04:28)
[2021-01-21] MEDS: Gabapentin 100 MG Capsule PO ×2 (04:28→17:01)
[2021-01-21] MEDS: Rizatriptan Benzoate 10 MG Tablet PO (04:28)
[2021-01-21] MEDS: amLODIPine 10 MG Tablet PO (04:28)
[2021-01-21] MEDS: DULoxetine Hcl 60 MG Capsule PO ×2 (04:28→17:01)
[2021-01-21] MEDS: Ipratropium/Albuterol Sulfate 3 ML AMPUL.NEB INHALATION ×3 (06:38→19:52)
[2021-01-21 08:36] VITALS: PULSE 79; RESP 20; O2SAT 95
[2021-01-21] MEDS: Multivitamins,Therapeutic Tablet 1 TABLET PO (08:57)
[2021-01-21] MEDS: Ferrous Sulfate 325 MG Tablet PO (08:57)
[2021-01-21] MEDS: Juven (unflavored) Packet 1 PACKET PO ×2 (08:57→16:59)
[2021-01-21] MEDS: Acetaminophen 500 MG Tablet 1000 MG PO ×2 (09:07→22:47)
[2021-01-21 13:05] VITALS: PULSE 82; RESP 20
[2021-01-21 14:27] VITALS: BP 102/60; PULSE 88; RESP 20; TEMP 36.2; O2SAT 95
--- NOTE | 2021-01-21 15:31 | NURSING ---
PER SPEECH THERAPY PT IS TO HAVE A MODIFIED BARIUM SWALLOW TEST ON 01/22/21 AT 1300.
[2021-01-21 19:52] VITALS: PULSE 87; RESP 20; O2SAT 95
[2021-01-21] MEDS: Pramipexole Di-HCl 0.25 MG Tablet PO (22:43)
[2021-01-21] MEDS: Gabapentin 300 MG Capsule PO (22:43)
[2021-01-22 05:56] VITALS: BP 126/63; PULSE 77; RESP 18; TEMP 36.9; O2SAT 97
[2021-01-22] MEDS: Nystatin Powder 15gm Bottle 1 APPLIC TOPICAL ×3 (05:58→21:49)
[2021-01-22] MEDS: Menthol/Lanolin/Calamine/Znox 113 GM Tube 1 APPLIC TOPICAL ×3 (05:58→21:43)
[2021-01-22] MEDS: Furosemide 40 MG Tablet PO (05:59)
[2021-01-22] MEDS: DULoxetine Hcl 60 MG Capsule PO ×2 (05:59→16:46)
[2021-01-22] MEDS: Hydroxychloroquine 200 MG Tablet PO ×2 (05:59→16:46)
[2021-01-22] MEDS: Gabapentin 100 MG Capsule PO ×2 (05:59→16:47)
[2021-01-22] MEDS: Senna/Docusate Sodium 1 Tablet PO ×2 (06:00→16:46)
[2021-01-22] MEDS: buPROPion 75 MG Tablet PO ×2 (06:00→16:47)
[2021-01-22] MEDS: Pantoprazole Sodium 40 MG Tablet PO ×2 (06:00→16:46)
[2021-01-22] MEDS: amLODIPine 10 MG Tablet PO (06:00)
[2021-01-22] MEDS: Atenolol 25 MG Tablet PO ×2 (06:01→16:52)
[2021-01-22] MEDS: Sucralfate 1 GM Tablet PO ×4 (06:06→21:44)
[2021-01-22 06:27] VITALS: PULSE 76; RESP 16; O2SAT 96
[2021-01-22] MEDS: Ipratropium/Albuterol Sulfate 3 ML AMPUL.NEB INHALATION ×2 (06:27→19:15)
[2021-01-22] MEDS: Juven (unflavored) Packet 1 PACKET PO ×2 (07:41→16:45)
[2021-01-22] MEDS: Multivitamins,Therapeutic Tablet 1 TABLET PO (07:41)
[2021-01-22] MEDS: Ferrous Sulfate 325 MG Tablet PO (07:41)
--- NOTE | 2021-01-22 13:53 | ST.MBS ---
Modified Barium Swallow - Patient Information Study Date: 01/22/21 Study Time: 13:00 Direct Billable Minutes: 120 Total Minutes procedure & reportin Diagnosis: oropharyngeal dysphagia (R13.12) Referring Physician: eNel Duran Chi Reason for Referral: To objectively assess swallow function and determine presence of aspiration. Medical History: LOLLY HUSAIN, is a 85 Female TCU resident who presents to [facility] with coffee ground emesis. Hemoglobin 5.5, nausea/vomiting, coffee ground emesis, black stools. 01/15/2021 Admit to Hospital. NPO, Pantoprazole drip, Hold Lovenox, consult General Surgery for Upper GI bleed. Hold Blood pressure medications for hypotension. Transfuse PRBC. 01/15/2021 Dr. Saucedo performed EGD noted coffee grounds in entire stomach. Non-bleeding gastric ulcer with adherent clot. Pantoprazole 40MG IV twice daily. 01/16/2021 Hemoglobin 7.4 after transfusion. On iron for anemia. 01/17/2021 Repeat Hemoglobin 6.7, transfuse 2 more units PRBC. Carafate added to Pantoprazole for Upper GI bleed. 01/18/2021 No abdominal pain, some dark stools overnight. Hemoglobin 9.9, Advance diet. 01/18/2021 Coughing while eating. Speech Therapy recommended modified diet. 01/19/2021 Admit to TCU with debility, here for rehabilitation, strengthening, prior to discharge home with family. [facility] Medical History Abnormal bruising Anxiety Chronic neck and back pain Difficulty balancing when standing DVT (deep venous thrombosis) Hearing loss, left Hearing loss, right Incontinence Knee pain Migraines Non-smoker On home oxygen therapy Polyosteoarthritis Polyosteoarthritis Severe headache Shoulder pain SOB (shortness of breath) Current Diet Ordered: soft and bite sized textures/thin liquids - Study Findings Consistencies: Thin Liquid, [place] Thick Liquid, Honey Thick Liquid, Pudding, Cookie - Penetration-Aspiration Scale Penetration-Aspiration Scale: OBJECTIVE ASSESSMENT OF SWALLOW FUNCTION (QUANTITATIVE ? PER TRIAL): PENETRATION / ASPIRATION SCALE (HUGO): 1 = does not enter airway 2 = enters airway/above vocal folds/ejected 3 = enters airway/above vocal folds/not ejected 4 = enters airway/contacts vocal folds/ejected 5 = enters airway/contacts vocal folds/not ejected 6 = enters airway/below vocal folds/ejected 7 = enters airway/below vocal folds/not ejected despite effort 8 = enters airway/below vocal folds/no effort - Penetration-Aspiration Scale Score Thin Liquid via teaspoon Result: 1= does not enter airway Thin Liquid via teaspoon Trial 2 Result: 2= enter airway/above vocal folds/ejected Thin Liquid via small single sip from cup Result: 4= enters airway/contacts vocal folds/ejected Thin Liquid via large single sip from cup Result: 4= enters airway/contacts vocal folds/ejected Thin Liquid via sequential sips from cup Result: 4= enters airway/contacts vocal folds/ejected [place] Thick Liquid via large single sip from cup Result: 2= enter airway/above vocal folds/ejected Honey Thick Liquid via large single sip from cup Result: 1= does not enter airway Cookie Result: 1= does not enter airway Thin Liquid via sequential sips from straw Result: 4= enters airway/contacts vocal folds/ejected - Oral Phase Labial Seal: No Labial Escape Tongue Control During Bolus Hold: Posterior escape of less than half of bolus Bolus Preparation/Mastication: Slow prolonged chewing/mashing with complete recollection Bolus Transport/Lingual Motion: Slowed tongue motion Oral Residue: Residue collection on oral structures - Pharyngeal Phase Initiation of Pharyngeal Swallow: Bolus head in valleculae Soft Palate Elevation: No bolus between soft palate and pharyngeal wall Laryngeal Elevation: Partial superior movement thyroid cart/partial apprx aryt-epig petiole Anterior Hyoid Excursion: Partial anterior movement Epiglottic Movement: Complete inversion Laryngeal Vestibule Closure at Height of Swallow: Incomplete; narrow column of air/contrast in laryngeal vestibule Pharyngeal Stripping Wave: Present - complete Pharyngoesophageal Segment Opening: Complete distension and complete duration; no obstruction of flow Tongue Base Retraction: Wide column of contrast between tongue base & post. pharyngeal wall Pharyngeal Residue: Trace residue within or on pharyngeal structures - Diagnosis/Impression Diagnosis: mild to moderate oropharyngeal dysphagia (R13.12) Impression: Oral phase primarily marked by prolonged, effortful mastication of solid cookie trial resulting in moderate oral residue. Pt with slowed anterior to posterior transfer of bolus effecting swallow onset timing. Pharyngeal phase primarily marked by suboptimal bolus placement upon deglutition with decreased laryngeal elevation and hyoid excursion. Pt presented with penetration of thin liquids to the vocal cords with ejection. Improvement with thin liquid in smaller quantities (for example with teaspoon). No aspiration found at this date and time. See recommendations below. - Recommendations Diet: Thin Liquids Comment: soft and bite sized textures Compensatory Strategies: Small Bites, Small Sips, Slow Rate, Sitting upright, Remain sitting upright for 30 minutes after PO intake Supervision: 1:1 Close Supervision Recommend Repeat Modified Barium Swallow: TBD Need for Skilled Speech Therapy Services: Yes Education Completed: 1. Described result of evaluation. - Status Active ST Patient: Active - Contact Information [facility]:: Krystin Valderrama MA, [facility] [place] [phone] [email or web address]
[2021-01-22 15:07] VITALS: BP 93/42; PULSE 82; RESP 16; TEMP 36.4; O2SAT 94
--- NOTE | 2021-01-22 16:08 | NURSING ---
Abdominal dressing changed per order at this time.
[2021-01-22 16:51] VITALS: BP 121/56; PULSE 79
[2021-01-22] MEDS: Acetaminophen 500 MG Tablet 1000 MG PO (16:53)
[2021-01-22 19:15] VITALS: PULSE 79; RESP 20
[2021-01-22] MEDS: Pramipexole Di-HCl 0.25 MG Tablet PO (21:45)
[2021-01-22] MEDS: Gabapentin 300 MG Capsule PO (21:46)
[2021-01-22] MEDS: Rizatriptan Benzoate 10 MG Tablet PO (22:28)
--- NOTE | 2021-01-23 00:12 | NURSING ---
ABD dressing changed per order, 'R' tolerated well.
[2021-01-23 05:05] VITALS: BP 111/57; PULSE 76; RESP 18; TEMP 36.4; O2SAT 96
[2021-01-23] MEDS: Gabapentin 100 MG Capsule PO ×2 (05:06→17:00)
[2021-01-23] MEDS: DULoxetine Hcl 60 MG Capsule PO ×2 (05:06→17:00)
[2021-01-23] MEDS: Hydroxychloroquine 200 MG Tablet PO ×2 (05:06→17:00)
[2021-01-23] MEDS: Menthol/Lanolin/Calamine/Znox 113 GM Tube 1 APPLIC TOPICAL ×3 (05:06→20:52)
[2021-01-23] MEDS: buPROPion 75 MG Tablet PO ×2 (05:06→17:01)
[2021-01-23] MEDS: Sucralfate 1 GM Tablet PO ×4 (05:06→20:52)
[2021-01-23] MEDS: Pantoprazole Sodium 40 MG Tablet PO ×2 (05:06→17:00)
[2021-01-23] MEDS: Atenolol 25 MG Tablet PO ×2 (05:06→17:00)
[2021-01-23] MEDS: Senna/Docusate Sodium 1 Tablet PO ×2 (05:06→17:00)
[2021-01-23] MEDS: Nystatin Powder 15gm Bottle 1 APPLIC TOPICAL ×3 (05:06→20:52)
[2021-01-23] MEDS: amLODIPine 10 MG Tablet PO (05:06)
[2021-01-23] MEDS: Furosemide 40 MG Tablet PO (05:06)
[2021-01-23 06:50] VITALS: PULSE 73; RESP 17; O2SAT 97
[2021-01-23] MEDS: Ipratropium/Albuterol Sulfate 3 ML AMPUL.NEB INHALATION ×2 (06:50→18:49)
[2021-01-23] MEDS: Multivitamins,Therapeutic Tablet 1 TABLET PO (07:58)
[2021-01-23] MEDS: Juven (unflavored) Packet 1 PACKET PO ×2 (07:58→16:59)
[2021-01-23] MEDS: Ferrous Sulfate 325 MG Tablet PO (07:58)
[2021-01-23 10:00] VITALS: PULSE 87; RESP 18; O2SAT 95
[2021-01-23] MEDS: Acetaminophen 500 MG Tablet 1000 MG PO ×2 (10:12→17:06)
[2021-01-23 13:17] VITALS: BP 111/57; PULSE 77; RESP 16; TEMP 35.9; O2SAT 94
--- NOTE | 2021-01-23 16:05 | NURSING ---
DRESSING CHANGED TO PT ABDOMINAL PER ORDERS. PT TOLERATED WELL. NO S/S OF INFECTION.
[2021-01-23 18:49] VITALS: PULSE 77; RESP 16
[2021-01-23 19:37] VITALS: O2SAT 96
[2021-01-23] MEDS: Gabapentin 300 MG Capsule PO (20:52)
[2021-01-23] MEDS: Pramipexole Di-HCl 0.25 MG Tablet PO (20:52)
--- NOTE | 2021-01-24 00:01 | NURSING ---
DRESSING CHANGED TO ABD PER ORDER. PT TOLERATED WELL, SMALL TAPE BURN ON UPPER RIGHT ABD WHERE DRESSING AND TAPE GOES, NO S/S OF INFECTION.
[2021-01-24] MEDS: buPROPion 75 MG Tablet PO ×2 (06:27→16:50)
[2021-01-24] MEDS: Pantoprazole Sodium 40 MG Tablet PO ×2 (06:27→16:50)
[2021-01-24] MEDS: Sucralfate 1 GM Tablet PO ×4 (06:27→20:21)
[2021-01-24] MEDS: Gabapentin 100 MG Capsule PO ×2 (06:27→16:50)
[2021-01-24] MEDS: Atenolol 25 MG Tablet PO ×2 (06:27→16:50)
[2021-01-24] MEDS: amLODIPine 10 MG Tablet PO (06:27)
[2021-01-24] MEDS: Hydroxychloroquine 200 MG Tablet PO ×2 (06:27→16:49)
[2021-01-24] MEDS: Senna/Docusate Sodium 1 Tablet PO ×2 (06:27→16:50)
[2021-01-24] MEDS: Furosemide 40 MG Tablet PO (06:27)
[2021-01-24] MEDS: DULoxetine Hcl 60 MG Capsule PO ×2 (06:27→16:50)
[2021-01-24] MEDS: Nystatin Powder 15gm Bottle 1 APPLIC TOPICAL ×3 (06:28→20:21)
[2021-01-24] MEDS: Menthol/Lanolin/Calamine/Znox 113 GM Tube 1 APPLIC TOPICAL ×3 (06:28→20:21)
[2021-01-24 06:29] VITALS: BP 128/56; PULSE 75; RESP 18; O2SAT 97
[2021-01-24 07:10] VITALS: O2SAT 95
[2021-01-24] MEDS: Juven (unflavored) Packet 1 PACKET PO ×2 (09:47→16:20)
[2021-01-24] MEDS: Multivitamins,Therapeutic Tablet 1 TABLET PO (09:48)
[2021-01-24] MEDS: Ferrous Sulfate 325 MG Tablet PO (09:48)
[2021-01-24] MEDS: Acetaminophen 500 MG Tablet 1000 MG PO (10:00)
[2021-01-24 16:11] VITALS: BP 112/78; PULSE 72; RESP 18; TEMP 36.2; O2SAT 96
[2021-01-24] MEDS: Rizatriptan Benzoate 10 MG Tablet PO (16:43)
[2021-01-24 18:27] VITALS: PULSE 79; RESP 24; O2SAT 96
[2021-01-24] MEDS: Ipratropium/Albuterol Sulfate 3 ML AMPUL.NEB INHALATION (18:27)
[2021-01-24] MEDS: Gabapentin 300 MG Capsule PO (20:21)
[2021-01-24] MEDS: Pramipexole Di-HCl 0.25 MG Tablet PO (20:21)
--- NOTE | 2021-01-25 00:20 | NURSING ---
dressing to abd changed per order, slight redness around sutures noted and more tape russo forming around where dressing is secured. pt tolerated well.
[2021-01-25 05:01] VITALS: BP 115/60; PULSE 72; RESP 18; TEMP 36.6; O2SAT 95
[2021-01-25] MEDS: Gabapentin 100 MG Capsule PO ×2 (05:02→16:45)
[2021-01-25] MEDS: Menthol/Lanolin/Calamine/Znox 113 GM Tube 1 APPLIC TOPICAL ×3 (05:02→21:44)
[2021-01-25] MEDS: Pantoprazole Sodium 40 MG Tablet PO ×2 (05:02→16:45)
[2021-01-25] MEDS: Atenolol 25 MG Tablet PO ×2 (05:02→16:46)
[2021-01-25] MEDS: DULoxetine Hcl 60 MG Capsule PO ×2 (05:02→16:45)
[2021-01-25] MEDS: buPROPion 75 MG Tablet PO ×2 (05:02→16:45)
[2021-01-25] MEDS: amLODIPine 10 MG Tablet PO (05:02)
[2021-01-25] MEDS: Senna/Docusate Sodium 1 Tablet PO ×2 (05:02→16:45)
[2021-01-25] MEDS: Sucralfate 1 GM Tablet PO ×4 (05:02→20:56)
[2021-01-25] MEDS: Hydroxychloroquine 200 MG Tablet PO ×2 (05:02→16:45)
[2021-01-25] MEDS: Furosemide 40 MG Tablet PO (05:02)
[2021-01-25] MEDS: Nystatin Powder 15gm Bottle 1 APPLIC TOPICAL ×3 (05:03→20:59)
[2021-01-25] MEDS: Juven (unflavored) Packet 1 PACKET PO ×2 (08:00→16:44)
[2021-01-25] MEDS: Ferrous Sulfate 325 MG Tablet PO (08:00)
[2021-01-25] MEDS: Multivitamins,Therapeutic Tablet 1 TABLET PO (08:00)
[2021-01-25 09:28] VITALS: PULSE 77; O2SAT 96
[2021-01-25 15:16] VITALS: BP 116/48; PULSE 76; RESP 18; TEMP 36.1; O2SAT 98
[2021-01-25 16:51] VITALS: BP 121/63; PULSE 71
[2021-01-25 18:43] VITALS: PULSE 79; RESP 20
[2021-01-25] MEDS: Ipratropium/Albuterol Sulfate 3 ML AMPUL.NEB INHALATION (18:43)
[2021-01-25] MEDS: Gabapentin 300 MG Capsule PO (20:56)
[2021-01-25] MEDS: Acetaminophen 500 MG Tablet 1000 MG PO (20:56)
[2021-01-25] MEDS: Pramipexole Di-HCl 0.25 MG Tablet PO (20:56)
--- NOTE | 2021-01-25 23:02 | NURSING ---
Dressing change done per order to ABD. Patient tolerated well.
[2021-01-26 06:57] VITALS: BP 114/50; PULSE 70; RESP 16; TEMP 36.3; O2SAT 99
[2021-01-26] MEDS: Hydroxychloroquine 200 MG Tablet PO ×2 (06:59→16:31)
[2021-01-26] MEDS: DULoxetine Hcl 60 MG Capsule PO ×2 (06:59→16:30)
[2021-01-26] MEDS: Pantoprazole Sodium 40 MG Tablet PO ×2 (06:59→16:31)
[2021-01-26] MEDS: Atenolol 25 MG Tablet PO ×2 (06:59→16:31)
[2021-01-26] MEDS: Furosemide 40 MG Tablet PO (06:59)
[2021-01-26] MEDS: Gabapentin 100 MG Capsule PO ×2 (06:59→16:31)
[2021-01-26] MEDS: buPROPion 75 MG Tablet PO ×2 (06:59→16:31)
[2021-01-26] MEDS: Sucralfate 1 GM Tablet PO ×4 (06:59→21:38)
[2021-01-26] MEDS: amLODIPine 10 MG Tablet PO (06:59)
[2021-01-26] MEDS: Ferrous Sulfate 325 MG Tablet PO (07:00)
[2021-01-26] MEDS: Senna/Docusate Sodium 1 Tablet PO ×2 (07:01→16:31)
[2021-01-26] MEDS: Multivitamins,Therapeutic Tablet 1 TABLET PO (07:03)
[2021-01-26 07:05] VITALS: O2SAT 98
[2021-01-26] MEDS: Menthol/Lanolin/Calamine/Znox 113 GM Tube 1 APPLIC TOPICAL ×3 (07:06→21:39)
[2021-01-26] MEDS: Nystatin Powder 15gm Bottle 1 APPLIC TOPICAL ×3 (07:07→21:38)
[2021-01-26] MEDS: Rizatriptan Benzoate 10 MG Tablet PO (08:48)
[2021-01-26] MEDS: Juven (unflavored) Packet 1 PACKET PO ×2 (08:49→16:31)
--- NOTE | 2021-01-26 09:53 | CASEMGMT ---
Social Work Brief interview for mental status (BIMS) and resident mood assessment (PHQ-9) completed on this day. Pilar MADISON, RAJESHS
[2021-01-26 10:00] VITALS: PULSE 80; RESP 18; O2SAT 94
[2021-01-26] MEDS: Acetaminophen 500 MG Tablet 1000 MG PO ×2 (11:30→21:39)
--- NOTE | 2021-01-26 13:40 | NURSING ---
wound photo: abdomen
[2021-01-26 13:48] VITALS: PULSE 79; RESP 16
[2021-01-26] MEDS: Ipratropium/Albuterol Sulfate 3 ML AMPUL.NEB INHALATION (13:48)
[2021-01-26 15:03] VITALS: BP 126/49; PULSE 72; RESP 18; TEMP 36.3; O2SAT 95
--- NOTE | 2021-01-26 15:09 | NURSING ---
Resident and daughter notified of another resident on the unit testing positive for COVID.
[2021-01-26] MEDS: Gabapentin 300 MG Capsule PO (21:38)
[2021-01-26] MEDS: Pramipexole Di-HCl 0.25 MG Tablet PO (21:38)
[2021-01-27] MEDS: Hydroxychloroquine 200 MG Tablet PO ×2 (04:58→17:20)
[2021-01-27] MEDS: Atenolol 25 MG Tablet PO ×2 (04:58→17:20)
[2021-01-27] MEDS: Pantoprazole Sodium 40 MG Tablet PO ×2 (04:58→17:20)
[2021-01-27] MEDS: amLODIPine 10 MG Tablet PO (04:58)
[2021-01-27] MEDS: DULoxetine Hcl 60 MG Capsule PO ×2 (04:58→17:19)
[2021-01-27] MEDS: Gabapentin 100 MG Capsule PO ×2 (04:58→17:21)
[2021-01-27] MEDS: Furosemide 40 MG Tablet PO (04:58)
[2021-01-27] MEDS: buPROPion 75 MG Tablet PO ×2 (04:58→17:21)
[2021-01-27] MEDS: Senna/Docusate Sodium 1 Tablet PO ×2 (04:59→17:20)
[2021-01-27 05:00] VITALS: BP 101/59; PULSE 68; RESP 20; TEMP 36.3; O2SAT 96
[2021-01-27] MEDS: Nystatin Powder 15gm Bottle 1 APPLIC TOPICAL ×3 (05:00→20:07)
[2021-01-27] MEDS: Menthol/Lanolin/Calamine/Znox 113 GM Tube 1 APPLIC TOPICAL ×3 (05:00→20:07)
[2021-01-27 05:42] LABS: Absolute Lymphocyte Count 1.25 X10^3/uL (0.83-4.51); Absolute Neutrophil Count 3.2 X10^3/uL (2.0-7.7); Basophil# 0.05 X10^3/uL; Basophil% 0.9 % (0-1); Eosinophil# 0.26 X10^3/uL; Eosinophils% 4.7 % (0-5); Hematocrit 38.6 % (37-47); Lymphocyte # 1.25 X10^3/ul (0.83-4.51); Lymphocyte % 22.6 % (19-41); Mean Corp Hgb Conc 31.1 g/dL (32-36); Mean Corpuscular Hgb 28.6 pg (27.0-32.0); Mean Corpuscular Volume 91.9 fL (81-99); Mean Platelet Vol. 9.6 fl (6.2-12.0); Monocyte# 0.76 X10^3/uL; Monocyte% 13.7 % (0-10); NRBC Flagged by Analyzer 0 % (0-5); Neutrophil # 3.16 X10^3/uL (2.7-7.7); Neutrophil % 57.2 % (47-70); Platelet Count 168 K/mm3 (150-450); White Blood Count 5.5 K/mm3 (4.4-11.0)
[2021-01-27 05:56] LABS: Anion Gap 6 (5-15); BUN 62 mg/dL (7-18); BUN/Creat Ratio 37.3 RATIO (10-20); Calcium,Total 9.4 mg/dL (8.5-10.1); Chloride 105 mmol/L (98-107); Creatinine, Serum 1.66 mg/dL (0.55-1.02); EST Glomerular Filtration Rate 31 mL/min (>60); Est Glom Filt Rate - Afr Amer 38 mL/min (>60); Estimated Creatinine Clearance 30.94 ml/min; Glucose 84 mg/dL (74-106); Sodium Level 139 mmol/L (136-145)
[2021-01-27] MEDS: Rizatriptan Benzoate 10 MG Tablet PO (05:58)
[2021-01-27 07:15] VITALS: PULSE 66; RESP 10
[2021-01-27] MEDS: Ipratropium/Albuterol Sulfate 3 ML AMPUL.NEB INHALATION ×3 (07:15→19:00)
[2021-01-27] MEDS: Ferrous Sulfate 325 MG Tablet PO (07:41)
[2021-01-27] MEDS: Sucralfate 1 GM Tablet PO ×4 (07:41→20:07)
[2021-01-27] MEDS: Multivitamins,Therapeutic Tablet 1 TABLET PO (07:41)
[2021-01-27] MEDS: Juven (unflavored) Packet 1 PACKET PO ×2 (07:41→17:20)
[2021-01-27] MEDS: traMADol 50 MG Tablet 100 MG PO (09:55)
[2021-01-27 10:00] VITALS: PULSE 68; RESP 20; O2SAT 91
--- NOTE | 2021-01-27 10:09 | NURSING ---
Dr. Saucedo in to perform procedure and suture patient's abdominal incision closed. Dr. Saucedo ordered Tramadol 100mg x 1 and Tramadol 50 q4hr PRN for the next 24 hours after procedure. Order repeated back.
--- NOTE | 2021-01-27 10:14 | PCM.PN.SRG ---
Subjective Subjective Patient is tolerating diet, abdominal wound is healing well skin is closed at the umbilicus Objective Data Objective Data Vital Signs: Vital Signs Temp Pulse Resp BP Pulse Ox 97.4 F L 66 10 L 101/59 L 96 01/27/21 05:00 01/27/21 07:15 01/27/21 07:15 01/27/21 05:00 01/27/21 05:00 Oxygen Delivery Method Room Air Weight: 171 lb 4 oz Body Mass Index (BMI) 42.2 Intake & Output: Intake and Output for Last 24 Hours 01/25/21 01/26/21 01/27/21 23:59 23:59 23:59 Intake Total 540 / 540 480 / 480 360 / 360 Output Total 1950 / 1950 750 / 750 650 / 650 Balance -1410 / -1410 -270 / -270 -290 / -290 Lab / Micro Data Result Diagrams: 01/27/21 05:10 01/27/21 05:10 Labs: Laboratory Results - last 24 hr 01/27/21 01/27/21 01/27/21 05:10 05:10 05:50 WBC 5.5 RBC 4.20 Hgb 12.0 Hct 38.6 MCV 91.9 MCH 28.6 MCHC 31.1 L RDW Std Deviation 58.0 H RDW Coeff of Laxmi 18.0 H Plt Count 168 MPV 9.6 Immature Gran % (Auto) 0.900 Neut % (Auto) 57.2 Lymph % (Auto) 22.6 [place] % (Auto) 13.7 H Eos % (Auto) 4.7 Baso % (Auto) 0.9 Absolute Neuts (auto) 3.2 Absolute Lymphs (auto) 1.25 Nucleated RBC % 0 Sodium 139 Potassium 4.0 Chloride 105 Carbon Dioxide 28.0 Anion Gap 6 BUN 62 H Creatinine 1.66 H Estim Creat Clear Calc 30.94 Est GFR (MDRD) Af Amer 38 L Est GFR (MDRD) Non-Af 31 L BUN/Creatinine Ratio 37.3 H Glucose 84 Calcium 9.4 Total Bilirubin Cancelled Direct Bilirubin Cancelled AST Cancelled ALT Cancelled Alkaline Phosphatase Cancelled Total Protein Cancelled Albumin Cancelled Globulin Cancelled Physical Exam Narrative Abdomen: Skin at the umbilicus is well closed, upper midline incision has good granulation tissue only a small opening in the inferior portion. Retention sutures in place. Assessment & Plan Assessment/Plan (1) S/P small bowel resection: (2) Small bowel perforation: PLAN: Did bring together the skin of the superior midline incision with Monocryl at bedside after prepping with Betadine. 1% lidocaine was used for anesthesia. Patient tolerated well. Retention sutures also removed at bedside. Did not attempt to close the small inferior opening as it was quite shallow. Steri-Strips also placed on the upper midline incision. Gauze placed over top with tape. Liver function panel pending as last liver function was elevated due to her being on Zosyn prior to surgery. Prema Saucedo M.D. Pager: [phone] [facility] [address] [place] [address], [address] [place] [address] Office: [phone]
[2021-01-27] MEDS: Lidocaine 1% (20 ml mdv) 20 ML Vial INFILT (10:17)
--- NOTE | 2021-01-27 10:24 | CASEMGMT ---
Plan of Care meeting held today with pt present and dgt on conference call. Pt is currently receiving PT/OT/ST. Pt requiring [employer] lift for transfers and is Max A x2 to attempt to stand at parallel bars. SW spoke with pt and dgt regarding possibility that pt will not be able to return home with daughter at time of discharge. Pt dgt requesting SW call her tomorrow to discuss discharge plans as she is not available later today. At this time pt treatment plan will continued. SW to discuss alternate discharge plan with pt dgt tomorrow. MABEL Worthy
[2021-01-27 11:05] LABS: AST(SGOT) 15 U/L (15-37); Alanine Aminotransfer ALT/SGPT 19 U/L (13-56); Albumin, Serum 2.4 g/dL (3.2-5.0); Alkaline Phosphatase 115 U/L (45-117); Bilirubin, Direct 0.12 mg/dL (0.00-0.30); Globulin 3.5 g/dL (2.2-4.2); Protein, Total 5.9 g/dL (6.4-8.2)
[2021-01-27 13:26] VITALS: PULSE 80; RESP 20
[2021-01-27 13:56] VITALS: BP 109/55; PULSE 83; RESP 16; TEMP 36.2; O2SAT 96
[2021-01-27 19:00] VITALS: PULSE 85; RESP 16; O2SAT 98
[2021-01-27] MEDS: Pramipexole Di-HCl 0.25 MG Tablet PO (20:07)
[2021-01-27] MEDS: Gabapentin 300 MG Capsule PO (20:08)
[2021-01-28] MEDS: Menthol/Lanolin/Calamine/Znox 113 GM Tube 1 APPLIC TOPICAL ×3 (05:55→19:50)
[2021-01-28] MEDS: Pantoprazole Sodium 40 MG Tablet PO ×2 (05:56→16:35)
[2021-01-28] MEDS: Sucralfate 1 GM Tablet PO ×4 (05:56→19:50)
[2021-01-28] MEDS: Hydroxychloroquine 200 MG Tablet PO ×2 (05:56→16:34)
[2021-01-28] MEDS: Atenolol 25 MG Tablet PO ×2 (05:56→16:36)
[2021-01-28] MEDS: Gabapentin 100 MG Capsule PO ×2 (05:56→16:35)
[2021-01-28] MEDS: Senna/Docusate Sodium 1 Tablet PO ×2 (05:56→16:36)
[2021-01-28] MEDS: DULoxetine Hcl 60 MG Capsule PO ×2 (05:56→16:35)
[2021-01-28] MEDS: Furosemide 40 MG Tablet PO (05:56)
[2021-01-28] MEDS: Nystatin Powder 15gm Bottle 1 APPLIC TOPICAL ×3 (05:56→19:51)
[2021-01-28] MEDS: amLODIPine 10 MG Tablet PO (05:56)
[2021-01-28] MEDS: buPROPion 75 MG Tablet PO ×2 (05:56→16:35)
[2021-01-28 06:00] VITALS: BP 121/50; PULSE 71; RESP 18; TEMP 36.7; O2SAT 95
[2021-01-28 06:30] VITALS: PULSE 68; RESP 18; O2SAT 99
[2021-01-28] MEDS: Ipratropium/Albuterol Sulfate 3 ML AMPUL.NEB INHALATION (06:30)
[2021-01-28] MEDS: Multivitamins,Therapeutic Tablet 1 TABLET PO (07:53)
[2021-01-28] MEDS: Juven (unflavored) Packet 1 PACKET PO ×2 (07:53→16:34)
[2021-01-28] MEDS: Ferrous Sulfate 325 MG Tablet PO (07:53)
[2021-01-28] MEDS: Acetaminophen 500 MG Tablet 1000 MG PO (07:59)
[2021-01-28] MEDS: traMADol 50 MG Tablet PO (12:52)
[2021-01-28 13:48] VITALS: BP 105/55; PULSE 77; RESP 16; TEMP 36.4; O2SAT 96
[2021-01-28] MEDS: SUMAtriptan 6 MG/0.5 ML Vial SC (16:43)
--- NOTE | 2021-01-28 16:46 | CASEMGMT ---
Social Work AIDA spoke with pt dgt on the phone to discuss discharge. AIDA reviewed information from team meeting yesterday including pt functional ability and likely need for ECF at time of discharge. AIDA explained ECF and payment information. Pt dgt uncertain of discharge plan, admitting that she does not think she can care for pt but also stating she does not want pt to go to ECF and she will find help to provide care. Lengthy discussion of pt current care needs. Candi to speak with her brother about options and will speak with AIDA again tomorrow. MABEL Worthy
[2021-01-28] MEDS: Pramipexole Di-HCl 0.25 MG Tablet PO (19:51)
[2021-01-28] MEDS: Gabapentin 300 MG Capsule PO (19:52)
[2021-01-29 05:00] VITALS: BP 115/32; PULSE 68; RESP 18; O2SAT 95
[2021-01-29] MEDS: Gabapentin 100 MG Capsule PO ×2 (05:27→17:03)
[2021-01-29] MEDS: Hydroxychloroquine 200 MG Tablet PO ×2 (05:27→17:04)
[2021-01-29] MEDS: Menthol/Lanolin/Calamine/Znox 113 GM Tube 1 APPLIC TOPICAL ×3 (05:27→20:56)
[2021-01-29] MEDS: DULoxetine Hcl 60 MG Capsule PO ×2 (05:27→17:03)
[2021-01-29] MEDS: Furosemide 40 MG Tablet PO (05:27)
[2021-01-29] MEDS: Sucralfate 1 GM Tablet PO ×4 (05:27→20:57)
[2021-01-29] MEDS: amLODIPine 10 MG Tablet PO (05:27)
[2021-01-29] MEDS: Senna/Docusate Sodium 1 Tablet PO ×2 (05:27→17:04)
[2021-01-29] MEDS: buPROPion 75 MG Tablet PO ×2 (05:28→17:05)
[2021-01-29] MEDS: Pantoprazole Sodium 40 MG Tablet PO ×2 (05:28→17:04)
[2021-01-29] MEDS: Atenolol 25 MG Tablet PO ×2 (05:28→17:05)
[2021-01-29] MEDS: Nystatin Powder 15gm Bottle 1 APPLIC TOPICAL ×3 (05:29→20:57)
[2021-01-29 06:50] VITALS: PULSE 72; RESP 18; O2SAT 93
[2021-01-29] MEDS: Ipratropium/Albuterol Sulfate 3 ML AMPUL.NEB INHALATION ×3 (06:53→19:27)
[2021-01-29] MEDS: Juven (unflavored) Packet 1 PACKET PO ×2 (07:43→16:08)
[2021-01-29] MEDS: Ferrous Sulfate 325 MG Tablet PO (07:43)
[2021-01-29] MEDS: Multivitamins,Therapeutic Tablet 1 TABLET PO (07:43)
[2021-01-29] MEDS: Acetaminophen 500 MG Tablet 1000 MG PO (08:41)
[2021-01-29 09:25] VITALS: PULSE 71; RESP 18; O2SAT 94
--- NOTE | 2021-01-29 09:37 | CASEMGMT ---
Social Work SW spoke with Phoebe at Palliative medicine who states pt and dgt are agreeable to Palliative program and have signed consent forms. Palliative to follow at time of discharge. MABEL Worthy
--- NOTE | 2021-01-29 09:54 | CASEMGMT ---
Social Work Pt dgt stating she will be in this evening to visit pt and will talk to her brother about d/c plan. Candi aware that AIDA will leave a list of SNF, HHC and private duty aides in room for her to car pick up driver. SNF and HHC lists include quality and resource use data and are consistent with the patient's preferred geographic region, medical needs and insurance network. Medicaid application also provided. AIDA requested Candi call AIDA on Monday to discuss discharge plan further. MABEL Worthy
[2021-01-29] MEDS: SUMAtriptan 6 MG/0.5 ML Vial SC ×2 (12:27→18:38)
--- NOTE | 2021-01-29 12:40 | CASEMGMT ---
Social Work SW received call from Jonathan at [facility] stating pt dgt Candi has inquired about admission. AIDA informed Jonathan of pt level of care and Jonathan states they would likely be able to accommodate pt. Phone call to Candi who confirms SW may fax referral to [facility] [facility]. Referral information faxed. AIDA will await determination. MABEL Worthy
[2021-01-29 13:35] VITALS: PULSE 76; RESP 18
--- NOTE | 2021-01-29 13:41 | CASEMGMT ---
Social Work Call received from [facility] requesting referral be sent. Mi Christopher initiated and agreeable. Referral faxed. Will await determination. MABEL Worthy
[2021-01-29 14:07] VITALS: BP 138/65; PULSE 80; RESP 17; TEMP 35.7; O2SAT 96
--- NOTE | 2021-01-29 18:18 | NURSING ---
dr coffey updated regarding pt c/o 04/16 migraine. new order to give imitrex x1 sc now and change previous order to PRN daily.
[2021-01-29 19:27] VITALS: PULSE 81; RESP 18
[2021-01-29] MEDS: Pramipexole Di-HCl 0.25 MG Tablet PO (20:58)
[2021-01-29] MEDS: Gabapentin 300 MG Capsule PO (20:59)
[2021-01-30 05:00] VITALS: BP 110/49; PULSE 69; RESP 18; TEMP 36.4; O2SAT 96
[2021-01-30] MEDS: Pantoprazole Sodium 40 MG Tablet PO ×2 (06:10→16:36)
[2021-01-30] MEDS: Hydroxychloroquine 200 MG Tablet PO ×2 (06:10→16:37)
[2021-01-30] MEDS: Nystatin Powder 15gm Bottle 1 APPLIC TOPICAL ×3 (06:10→20:37)
[2021-01-30] MEDS: Menthol/Lanolin/Calamine/Znox 113 GM Tube 1 APPLIC TOPICAL ×3 (06:10→20:37)
[2021-01-30] MEDS: Sucralfate 1 GM Tablet PO ×4 (06:10→20:34)
[2021-01-30] MEDS: buPROPion 75 MG Tablet PO ×2 (06:10→16:37)
[2021-01-30] MEDS: Atenolol 25 MG Tablet PO ×2 (06:10→16:37)
[2021-01-30] MEDS: Senna/Docusate Sodium 1 Tablet PO ×2 (06:10→16:37)
[2021-01-30] MEDS: Furosemide 40 MG Tablet PO (06:10)
[2021-01-30] MEDS: DULoxetine Hcl 60 MG Capsule PO ×2 (06:10→16:36)
[2021-01-30] MEDS: amLODIPine 10 MG Tablet PO (06:10)
[2021-01-30] MEDS: Gabapentin 100 MG Capsule PO ×2 (06:10→16:36)
[2021-01-30] MEDS: Ipratropium/Albuterol Sulfate 3 ML AMPUL.NEB INHALATION ×3 (06:54→19:50)
[2021-01-30 07:16] VITALS: PULSE 74; RESP 14; O2SAT 94
[2021-01-30] MEDS: Ferrous Sulfate 325 MG Tablet PO (07:59)
[2021-01-30] MEDS: Multivitamins,Therapeutic Tablet 1 TABLET PO (07:59)
[2021-01-30] MEDS: Juven (unflavored) Packet 1 PACKET PO ×2 (07:59→16:36)
[2021-01-30] MEDS: SUMAtriptan 6 MG/0.5 ML Vial SC (08:00)
[2021-01-30] MEDS: Acetaminophen 500 MG Tablet 1000 MG PO (12:45)
[2021-01-30 13:51] VITALS: PULSE 82; RESP 18
[2021-01-30 14:11] VITALS: BP 96/54; PULSE 84; RESP 16; TEMP 36.7; O2SAT 97
[2021-01-30 19:41] VITALS: PULSE 72; RESP 16; O2SAT 95
[2021-01-30 19:50] VITALS: PULSE 82; RESP 16; O2SAT 97
[2021-01-30] MEDS: Pramipexole Di-HCl 0.25 MG Tablet PO (20:34)
[2021-01-30] MEDS: Gabapentin 300 MG Capsule PO (20:34)
[2021-01-31 05:00] VITALS: BP 109/51; PULSE 69; RESP 16; TEMP 36.4; O2SAT 96
[2021-01-31] MEDS: Pantoprazole Sodium 40 MG Tablet PO ×2 (06:56→16:34)
[2021-01-31] MEDS: DULoxetine Hcl 60 MG Capsule PO ×2 (06:56→16:34)
[2021-01-31] MEDS: Acetaminophen 500 MG Tablet 1000 MG PO (06:56)
[2021-01-31] MEDS: Furosemide 40 MG Tablet PO (06:56)
[2021-01-31] MEDS: Sucralfate 1 GM Tablet PO ×4 (06:56→21:14)
[2021-01-31] MEDS: amLODIPine 10 MG Tablet PO (06:56)
[2021-01-31] MEDS: Gabapentin 100 MG Capsule PO ×2 (06:56→16:34)
[2021-01-31] MEDS: Atenolol 25 MG Tablet PO ×2 (06:57→16:40)
[2021-01-31] MEDS: buPROPion 75 MG Tablet PO ×2 (06:57→16:34)
[2021-01-31] MEDS: Senna/Docusate Sodium 1 Tablet PO ×2 (06:57→16:34)
[2021-01-31] MEDS: Hydroxychloroquine 200 MG Tablet PO ×2 (06:57→16:34)
[2021-01-31] MEDS: Menthol/Lanolin/Calamine/Znox 113 GM Tube 1 APPLIC TOPICAL ×3 (07:02→21:13)
[2021-01-31] MEDS: Nystatin Powder 15gm Bottle 1 APPLIC TOPICAL ×3 (07:03→21:14)
[2021-01-31] MEDS: Ferrous Sulfate 325 MG Tablet PO (07:40)
[2021-01-31] MEDS: Multivitamins,Therapeutic Tablet 1 TABLET PO (07:40)
[2021-01-31] MEDS: Juven (unflavored) Packet 1 PACKET PO ×2 (07:41→16:34)
[2021-01-31 13:43] VITALS: PULSE 75; RESP 18
[2021-01-31] MEDS: Ipratropium/Albuterol Sulfate 3 ML AMPUL.NEB INHALATION ×2 (13:43→19:25)
[2021-01-31 13:44] VITALS: BP 107/49; PULSE 74; RESP 16; TEMP 35.8; O2SAT 94
[2021-01-31 16:43] VITALS: BP 117/54; PULSE 75
[2021-01-31 19:25] VITALS: PULSE 80; RESP 14; O2SAT 98
[2021-01-31] MEDS: Gabapentin 300 MG Capsule PO (21:14)
[2021-01-31] MEDS: Pramipexole Di-HCl 0.25 MG Tablet PO (21:14)
[2021-02-01 05:00] VITALS: BP 112/63; PULSE 71; RESP 16; TEMP 36.9; O2SAT 96
[2021-02-01] MEDS: buPROPion 75 MG Tablet PO ×2 (06:03→17:12)
[2021-02-01] MEDS: Furosemide 40 MG Tablet PO (06:03)
[2021-02-01] MEDS: Hydroxychloroquine 200 MG Tablet PO ×2 (06:03→17:11)
[2021-02-01] MEDS: Atenolol 25 MG Tablet PO ×2 (06:03→17:12)
[2021-02-01] MEDS: Senna/Docusate Sodium 1 Tablet PO ×2 (06:03→17:12)
[2021-02-01] MEDS: Sucralfate 1 GM Tablet PO ×4 (06:03→21:00)
[2021-02-01] MEDS: Pantoprazole Sodium 40 MG Tablet PO ×2 (06:03→17:12)
[2021-02-01] MEDS: DULoxetine Hcl 60 MG Capsule PO ×2 (06:03→17:11)
[2021-02-01] MEDS: Gabapentin 100 MG Capsule PO ×2 (06:03→17:11)
[2021-02-01] MEDS: amLODIPine 10 MG Tablet PO (06:03)
[2021-02-01] MEDS: Menthol/Lanolin/Calamine/Znox 113 GM Tube 1 APPLIC TOPICAL ×3 (06:04→21:01)
[2021-02-01] MEDS: Nystatin Powder 15gm Bottle 1 APPLIC TOPICAL ×3 (06:04→21:01)
[2021-02-01] MEDS: Acetaminophen 500 MG Tablet 1000 MG PO ×2 (06:06→17:10)
[2021-02-01 06:43] VITALS: PULSE 70; RESP 16; O2SAT 96
[2021-02-01] MEDS: Ipratropium/Albuterol Sulfate 3 ML AMPUL.NEB INHALATION ×2 (06:43→13:02)
[2021-02-01] MEDS: Multivitamins,Therapeutic Tablet 1 TABLET PO (08:55)
[2021-02-01] MEDS: Juven (unflavored) Packet 1 PACKET PO ×2 (08:55→17:10)
[2021-02-01] MEDS: Ferrous Sulfate 325 MG Tablet PO (08:55)
--- NOTE | 2021-02-01 11:46 | MDS.RN ---
Information for the mds was obtained from review of the clinical record, interview of resident, staff, and direct observation of resident's care.
[2021-02-01 13:02] VITALS: PULSE 70; RESP 16; O2SAT 96
--- NOTE | 2021-02-01 13:37 | CASEMGMT ---
Social Work Telephone call from patient daughter, Candi. Candi reports that choices of nursing homes are as follows, 1: [facility], 2: [facility], 3: [facility]. No discharge date set at this time. Will continue to follow and make referrals as appropriate. Pilar MADISON, PETER
--- NOTE | 2021-02-01 14:21 | CASEMGMT ---
Social Work Telephone call from patient daughter, Candi. Candi reports to have spoken to multiple facilities. Candi reports to have spoken to [facility] and the [facility]. Candi request for this social studies department chair to fax clinicals to any facility that calls. Telephone call from the [facility]. Clinical information faxed. Will continue to follow. Pilar MADISON, PETER
[2021-02-01 14:34] VITALS: BP 123/56; PULSE 80; RESP 18; TEMP 36.6; O2SAT 97
--- NOTE | 2021-02-01 14:52 | NURSING ---
wound photo: sacrum
[2021-02-01] MEDS: Albuterol Sulfate 8 gm Inhaler (60 puffs) 2 PUFF INHALATION (17:59)
[2021-02-01] MEDS: Pramipexole Di-HCl 0.25 MG Tablet PO (21:00)
[2021-02-01] MEDS: Gabapentin 300 MG Capsule PO (21:01)
[2021-02-02] MEDS: amLODIPine 10 MG Tablet PO (04:52)
[2021-02-02] MEDS: Gabapentin 100 MG Capsule PO ×2 (04:52→16:46)
[2021-02-02] MEDS: Furosemide 40 MG Tablet PO (04:52)
[2021-02-02] MEDS: Atenolol 25 MG Tablet PO ×2 (04:52)
[2021-02-02] MEDS: DULoxetine Hcl 60 MG Capsule PO ×2 (04:52→16:46)
[2021-02-02] MEDS: Pantoprazole Sodium 40 MG Tablet PO ×2 (04:52→16:46)
[2021-02-02] MEDS: Sucralfate 1 GM Tablet PO ×4 (04:53→22:03)
[2021-02-02] MEDS: buPROPion 75 MG Tablet PO ×2 (04:53→16:47)
[2021-02-02] MEDS: Senna/Docusate Sodium 1 Tablet PO ×2 (04:57→16:46)
[2021-02-02] MEDS: Albuterol Sulfate 8 gm Inhaler (60 puffs) 2 PUFF INHALATION ×2 (04:58→16:46)
[2021-02-02] MEDS: Nystatin Powder 15gm Bottle 1 APPLIC TOPICAL ×3 (04:59→22:03)
[2021-02-02 05:00] VITALS: BP 116/62; PULSE 69; RESP 16; TEMP 36.7; O2SAT 97
[2021-02-02] MEDS: Menthol/Lanolin/Calamine/Znox 113 GM Tube 1 APPLIC TOPICAL ×3 (05:00→22:03)
[2021-02-02 06:35] VITALS: O2SAT 94
[2021-02-02] MEDS: Multivitamins,Therapeutic Tablet 1 TABLET PO (07:44)
[2021-02-02] MEDS: Juven (unflavored) Packet 1 PACKET PO ×2 (07:44→16:45)
[2021-02-02] MEDS: Hydroxychloroquine 200 MG Tablet PO ×2 (07:44→16:45)
[2021-02-02] MEDS: Ferrous Sulfate 325 MG Tablet PO (07:44)
[2021-02-02] MEDS: Acetaminophen 500 MG Tablet 1000 MG PO (07:45)
--- NOTE | 2021-02-02 12:34 | CASEMGMT ---
Social Work Telephone call from patient daughter, Maria A. Maria A now request for [facility] living to be first choice for placement for patient and [facility] second choice. Telephone call to Abena Sm[facility]. Voicemail left. Clinicals faxed. Abena to get back to this social science professor after reviewing clinicals. Will continue to follow. Pilar MADISON, RAJESHS
[2021-02-02 13:59] VITALS: BP 116/63; PULSE 77; RESP 18; TEMP 36.4; O2SAT 95
[2021-02-02] MEDS: Pramipexole Di-HCl 0.25 MG Tablet PO (22:04)
[2021-02-02] MEDS: Gabapentin 300 MG Capsule PO (22:04)
[2021-02-03 05:54] LABS: Absolute Lymphocyte Count 1.04 X10^3/uL (0.83-4.51); Absolute Neutrophil Count 4.1 X10^3/uL (2.0-7.7); Basophil# 0.04 X10^3/uL; Basophil% 0.7 % (0-1); Eosinophil# 0.17 X10^3/uL; Eosinophils% 2.8 % (0-5); Hematocrit 33.9 % (37-47); Hemoglobin 10.5 g/dL (12.0-15.0); Lymphocyte # 1.04 X10^3/ul (0.83-4.51); Mean Corpuscular Hgb 28.2 pg (27.0-32.0); Mean Corpuscular Volume 91.1 fL (81-99); Mean Platelet Vol. 9.4 fl (6.2-12.0); Monocyte# 0.63 X10^3/uL; Monocyte% 10.3 % (0-10); NRBC Flagged by Analyzer 0 % (0-5); Neutrophil # 4.14 X10^3/uL (2.7-7.7); Neutrophil % 67.9 % (47-70); Platelet Count 190 K/mm3 (150-450); RBC Distribution Width CV 16.8 % (11.6-14.6); RBC Distribution Width SD 55.2 fl (35.1-43.9); Red Blood Count 3.72 M/mm3 (4.2-5.4); White Blood Count 6.1 K/mm3 (4.4-11.0)
[2021-02-03] MEDS: buPROPion 75 MG Tablet PO ×2 (05:57→16:43)
[2021-02-03] MEDS: Sucralfate 1 GM Tablet PO ×4 (05:57→21:43)
[2021-02-03] MEDS: Senna/Docusate Sodium 1 Tablet PO ×2 (05:57→16:43)
[2021-02-03] MEDS: Nystatin Powder 15gm Bottle 1 APPLIC TOPICAL ×3 (05:58→21:51)
[2021-02-03] MEDS: Gabapentin 100 MG Capsule PO ×2 (05:58→16:43)
[2021-02-03] MEDS: Albuterol Sulfate 8 gm Inhaler (60 puffs) 2 PUFF INHALATION ×2 (05:58→16:45)
[2021-02-03] MEDS: Furosemide 40 MG Tablet PO (05:58)
[2021-02-03] MEDS: Menthol/Lanolin/Calamine/Znox 113 GM Tube 1 APPLIC TOPICAL ×3 (05:58→21:51)
[2021-02-03] MEDS: Atenolol 25 MG Tablet PO ×2 (05:58→16:49)
[2021-02-03] MEDS: DULoxetine Hcl 60 MG Capsule PO ×2 (05:58→16:44)
[2021-02-03] MEDS: amLODIPine 10 MG Tablet PO (05:58)
[2021-02-03] MEDS: Pantoprazole Sodium 40 MG Tablet PO ×2 (05:58→16:42)
[2021-02-03 06:00] VITALS: BP 110/68; PULSE 72; RESP 20; TEMP 36.4; O2SAT 97
[2021-02-03 06:15] LABS: Anion Gap 5 (5-15); BUN 70 mg/dL (7-18); BUN/Creat Ratio 42.4 RATIO (10-20); Calcium,Total 9.8 mg/dL (8.5-10.1); Chloride 102 mmol/L (98-107); Creatinine, Serum 1.65 mg/dL (0.55-1.02); EST Glomerular Filtration Rate 31 mL/min (>60); Est Glom Filt Rate - Afr Amer 38 mL/min (>60); Estimated Creatinine Clearance 30.53 ml/min; Glucose 86 mg/dL (74-106); Potassium 4.2 mmol/L (3.5-5.1); Sodium Level 139 mmol/L (136-145)
[2021-02-03] MEDS: Juven (unflavored) Packet 1 PACKET PO ×2 (07:53→16:42)
[2021-02-03] MEDS: Ferrous Sulfate 325 MG Tablet PO (07:53)
[2021-02-03] MEDS: Hydroxychloroquine 200 MG Tablet PO ×2 (07:53→16:44)
[2021-02-03] MEDS: Multivitamins,Therapeutic Tablet 1 TABLET PO (07:53)
[2021-02-03] MEDS: SUMAtriptan 6 MG/0.5 ML Vial SC (09:11)
[2021-02-03 14:56] VITALS: BP 109/46; PULSE 74; RESP 16; TEMP 36.3; O2SAT 98
[2021-02-03 16:49] VITALS: BP 117/60; PULSE 75
[2021-02-03] MEDS: Gabapentin 300 MG Capsule PO (21:43)
[2021-02-03] MEDS: Pramipexole Di-HCl 0.25 MG Tablet PO (21:43)
[2021-02-03] MEDS: Acetaminophen 500 MG Tablet 1000 MG PO (21:48)
[2021-02-03 22:01] VITALS: PULSE 78; RESP 16
--- NOTE | 2021-02-03 22:01 | NURSING ---
While doing patient assessment, oxygen saturation at 87-88%. Patient denies SOB. Patient was sleeping prior to this nurse starting assessment. Patient only complains of headache. Placed patient on 2 LPM of Oxygen via nasal cannula. Oxygen saturation increased to 95-96%. RN aware. Respiratory called and updated.
--- NOTE | 2021-02-03 22:03 | CPS ---
pt placed on 2 l/m via nc by nurse for low sat
[2021-02-04 05:00] VITALS: BP 126/56; PULSE 96; RESP 16; TEMP 36.4; O2SAT 99
[2021-02-04] MEDS: Sucralfate 1 GM Tablet PO ×4 (05:37→20:10)
[2021-02-04] MEDS: Atenolol 25 MG Tablet PO ×2 (05:37→17:56)
[2021-02-04] MEDS: Gabapentin 100 MG Capsule PO ×2 (05:37→17:55)
[2021-02-04] MEDS: amLODIPine 10 MG Tablet PO (05:37)
[2021-02-04] MEDS: Furosemide 40 MG Tablet PO (05:37)
[2021-02-04] MEDS: DULoxetine Hcl 60 MG Capsule PO ×2 (05:37→17:55)
[2021-02-04] MEDS: buPROPion 75 MG Tablet PO ×2 (05:37→17:56)
[2021-02-04] MEDS: Pantoprazole Sodium 40 MG Tablet PO ×2 (05:37→17:55)
[2021-02-04] MEDS: Senna/Docusate Sodium 1 Tablet PO ×2 (05:41→17:56)
[2021-02-04] MEDS: Albuterol Sulfate 8 gm Inhaler (60 puffs) 2 PUFF INHALATION ×2 (05:43→17:59)
[2021-02-04] MEDS: Nystatin Powder 15gm Bottle 1 APPLIC TOPICAL ×3 (05:44→20:11)
[2021-02-04] MEDS: Menthol/Lanolin/Calamine/Znox 113 GM Tube 1 APPLIC TOPICAL ×3 (05:45→20:10)
[2021-02-04] MEDS: SUMAtriptan 6 MG/0.5 ML Vial SC (05:46)
[2021-02-04] MEDS: Multivitamins,Therapeutic Tablet 1 TABLET PO (08:05)
[2021-02-04] MEDS: Ferrous Sulfate 325 MG Tablet PO (08:05)
[2021-02-04] MEDS: Juven (unflavored) Packet 1 PACKET PO ×2 (08:05→17:54)
[2021-02-04] MEDS: Hydroxychloroquine 200 MG Tablet PO ×2 (08:06→17:55)
[2021-02-04 16:00] VITALS: BP 101/52; PULSE 79; RESP 17; TEMP 36.7; O2SAT 97
[2021-02-04] MEDS: Pramipexole Di-HCl 0.25 MG Tablet PO (20:11)
[2021-02-04] MEDS: Gabapentin 300 MG Capsule PO (20:11)
[2021-02-05 05:00] VITALS: BP 121/60; PULSE 68; RESP 18; O2SAT 96
[2021-02-05] MEDS: Nystatin Powder 15gm Bottle 1 APPLIC TOPICAL ×3 (05:03→20:58)
[2021-02-05] MEDS: Menthol/Lanolin/Calamine/Znox 113 GM Tube 1 APPLIC TOPICAL ×3 (05:03→20:57)
[2021-02-05] MEDS: Sucralfate 1 GM Tablet PO ×4 (05:03→20:57)
[2021-02-05] MEDS: buPROPion 75 MG Tablet PO ×2 (05:04→17:08)
[2021-02-05] MEDS: Gabapentin 100 MG Capsule PO ×2 (05:04→17:08)
[2021-02-05] MEDS: amLODIPine 10 MG Tablet PO (05:04)
[2021-02-05] MEDS: Furosemide 40 MG Tablet PO (05:04)
[2021-02-05] MEDS: Pantoprazole Sodium 40 MG Tablet PO ×2 (05:04→17:08)
[2021-02-05] MEDS: DULoxetine Hcl 60 MG Capsule PO ×2 (05:04→17:10)
[2021-02-05] MEDS: Atenolol 25 MG Tablet PO ×2 (05:04→17:08)
[2021-02-05] MEDS: Senna/Docusate Sodium 1 Tablet PO ×2 (05:05→17:09)
[2021-02-05] MEDS: Albuterol Sulfate 8 gm Inhaler (60 puffs) 2 PUFF INHALATION ×2 (05:06→17:08)
[2021-02-05] MEDS: Multivitamins,Therapeutic Tablet 1 TABLET PO (07:53)
[2021-02-05] MEDS: Juven (unflavored) Packet 1 PACKET PO ×2 (07:53→17:09)
[2021-02-05] MEDS: Ferrous Sulfate 325 MG Tablet PO (07:54)
[2021-02-05] MEDS: Hydroxychloroquine 200 MG Tablet PO ×2 (07:54→17:09)
[2021-02-05 15:45] VITALS: BP 123/56; PULSE 78; RESP 16; TEMP 36.7; O2SAT 96
[2021-02-05] MEDS: Pramipexole Di-HCl 0.25 MG Tablet PO (20:58)
[2021-02-05] MEDS: Gabapentin 300 MG Capsule PO (20:59)
[2021-02-05 22:00] VITALS: PULSE 59; O2SAT 98
[2021-02-06 05:00] VITALS: BP 114/60; PULSE 73; RESP 18; TEMP 36.5; O2SAT 97
[2021-02-06] MEDS: Menthol/Lanolin/Calamine/Znox 113 GM Tube 1 APPLIC TOPICAL ×3 (05:01→20:08)
[2021-02-06] MEDS: Nystatin Powder 15gm Bottle 1 APPLIC TOPICAL ×3 (05:02→20:08)
[2021-02-06] MEDS: DULoxetine Hcl 60 MG Capsule PO ×2 (05:02→16:56)
[2021-02-06] MEDS: Gabapentin 100 MG Capsule PO ×2 (05:02→16:55)
[2021-02-06] MEDS: Pantoprazole Sodium 40 MG Tablet PO ×2 (05:02→16:57)
[2021-02-06] MEDS: Sucralfate 1 GM Tablet PO ×4 (05:02→20:07)
[2021-02-06] MEDS: Furosemide 40 MG Tablet PO (05:02)
[2021-02-06] MEDS: amLODIPine 10 MG Tablet PO (05:02)
[2021-02-06] MEDS: buPROPion 75 MG Tablet PO ×2 (05:02→16:58)
[2021-02-06] MEDS: Senna/Docusate Sodium 1 Tablet PO ×2 (05:02→16:57)
[2021-02-06] MEDS: Atenolol 25 MG Tablet PO ×2 (05:02→16:57)
[2021-02-06] MEDS: Albuterol Sulfate 8 gm Inhaler (60 puffs) 2 PUFF INHALATION ×2 (05:57→16:58)
[2021-02-06 06:01] VITALS: BP 134/62; PULSE 60; RESP 18; TEMP 36.6; O2SAT 97
[2021-02-06] MEDS: Juven (unflavored) Packet 1 PACKET PO ×2 (09:12→16:55)
[2021-02-06] MEDS: Hydroxychloroquine 200 MG Tablet PO ×2 (09:12→16:56)
[2021-02-06] MEDS: Multivitamins,Therapeutic Tablet 1 TABLET PO (09:13)
[2021-02-06] MEDS: Ferrous Sulfate 325 MG Tablet PO (09:13)
[2021-02-06] MEDS: Acetaminophen 500 MG Tablet 1000 MG PO ×2 (09:16→18:16)
[2021-02-06 11:15] VITALS: O2SAT 97
[2021-02-06 15:34] VITALS: BP 103/55; PULSE 77; RESP 17; TEMP 36.8; O2SAT 96
[2021-02-06] MEDS: Pramipexole Di-HCl 0.25 MG Tablet PO (20:07)
[2021-02-06] MEDS: Gabapentin 300 MG Capsule PO (20:08)
[2021-02-07 05:00] VITALS: BP 97/55; PULSE 69; RESP 18; TEMP 35.8; O2SAT 96
[2021-02-07] MEDS: amLODIPine 10 MG Tablet PO (05:30)
[2021-02-07] MEDS: DULoxetine Hcl 60 MG Capsule PO ×2 (05:30→16:49)
[2021-02-07] MEDS: Pantoprazole Sodium 40 MG Tablet PO ×2 (05:30→16:49)
[2021-02-07] MEDS: Atenolol 25 MG Tablet PO ×2 (05:30→16:51)
[2021-02-07] MEDS: Gabapentin 100 MG Capsule PO ×2 (05:30→16:49)
[2021-02-07] MEDS: Furosemide 40 MG Tablet PO (05:30)
[2021-02-07] MEDS: buPROPion 75 MG Tablet PO ×2 (05:30→16:51)
[2021-02-07] MEDS: Sucralfate 1 GM Tablet PO ×4 (05:30→21:18)
[2021-02-07] MEDS: Senna/Docusate Sodium 1 Tablet PO ×2 (05:31→16:51)
[2021-02-07] MEDS: Menthol/Lanolin/Calamine/Znox 113 GM Tube 1 APPLIC TOPICAL ×3 (05:31→21:18)
[2021-02-07] MEDS: Albuterol Sulfate 8 gm Inhaler (60 puffs) 2 PUFF INHALATION ×2 (05:31→16:51)
[2021-02-07] MEDS: Nystatin Powder 15gm Bottle 1 APPLIC TOPICAL ×3 (05:31→21:18)
[2021-02-07 07:47] VITALS: O2SAT 98
[2021-02-07] MEDS: Hydroxychloroquine 200 MG Tablet PO ×2 (08:34→16:49)
[2021-02-07] MEDS: Multivitamins,Therapeutic Tablet 1 TABLET PO (08:34)
[2021-02-07] MEDS: Juven (unflavored) Packet 1 PACKET PO ×2 (08:34→16:49)
[2021-02-07] MEDS: Ferrous Sulfate 325 MG Tablet PO (08:34)
[2021-02-07 15:25] VITALS: BP 99/48; PULSE 78; RESP 18; TEMP 36.4; O2SAT 91
[2021-02-07] MEDS: Gabapentin 300 MG Capsule PO (21:19)
[2021-02-07] MEDS: Pramipexole Di-HCl 0.25 MG Tablet PO (21:20)
[2021-02-08 04:39] VITALS: BP 109/75; PULSE 69; RESP 16; TEMP 36.4; O2SAT 95
[2021-02-08] MEDS: Menthol/Lanolin/Calamine/Znox 113 GM Tube 1 APPLIC TOPICAL ×3 (04:40→21:30)
[2021-02-08] MEDS: Nystatin Powder 15gm Bottle 1 APPLIC TOPICAL ×3 (04:41→21:30)
[2021-02-08] MEDS: Furosemide 40 MG Tablet PO (04:41)
[2021-02-08] MEDS: Pantoprazole Sodium 40 MG Tablet PO ×2 (04:41→17:37)
[2021-02-08] MEDS: Sucralfate 1 GM Tablet PO ×4 (04:41→21:30)
[2021-02-08] MEDS: Senna/Docusate Sodium 1 Tablet PO (04:42)
[2021-02-08] MEDS: amLODIPine 10 MG Tablet PO (04:42)
[2021-02-08] MEDS: Atenolol 25 MG Tablet PO ×2 (04:42→17:39)
[2021-02-08] MEDS: buPROPion 75 MG Tablet PO ×2 (04:42→17:39)
[2021-02-08] MEDS: Gabapentin 100 MG Capsule PO ×2 (04:43→17:37)
[2021-02-08] MEDS: DULoxetine Hcl 60 MG Capsule PO ×2 (04:43→17:36)
[2021-02-08] MEDS: Albuterol Sulfate 8 gm Inhaler (60 puffs) 2 PUFF INHALATION ×2 (04:43→17:39)
[2021-02-08] MEDS: Acetaminophen 500 MG Tablet 1000 MG PO ×2 (04:46→14:56)
[2021-02-08 06:50] VITALS: O2SAT 92
[2021-02-08] MEDS: Juven (unflavored) Packet 1 PACKET PO ×2 (08:46→17:36)
[2021-02-08] MEDS: Hydroxychloroquine 200 MG Tablet PO ×2 (08:47→17:36)
[2021-02-08] MEDS: Ferrous Sulfate 325 MG Tablet PO (08:47)
[2021-02-08] MEDS: Multivitamins,Therapeutic Tablet 1 TABLET PO (08:47)
[2021-02-08 10:00] VITALS: PULSE 90; RESP 18; O2SAT 99
[2021-02-08 14:20] VITALS: BP 108/45; PULSE 77; RESP 18; TEMP 36.4; O2SAT 96
[2021-02-08] MEDS: Pramipexole Di-HCl 0.25 MG Tablet PO (21:30)
[2021-02-08] MEDS: Gabapentin 300 MG Capsule PO (21:30)
--- NOTE | 2021-02-08 21:45 | NURSING ---
Patient c/o of pain in umbilical area 6 out of 10. Patient rubbing site and moaning. Bowel sounds present in all four quadrants. Incision clean and dry without signs of infection. RN aware. New orders from Dr. Duran for UA and KUB.
--- NOTE | 2021-02-08 23:01 | RAD_ITS ---
STUDY: X-RAY - ABDOMEN/PELVIS REASON FOR EXAM: Female, 85 years old. abdominal pain TECHNIQUE: Two AP supine views of the abdomen and pelvis. COMPARISON: None. FINDINGS: Normal visualized lung bases. There is an unremarkable bowel gas pattern. There is no demonstrated free abdominal air. The visualized liver, spleen and kidneys are grossly normal in size and morphology. Normal soft tissue structures. Normal visualized osseous structures. RAD/Abdomen Single View IMPRESSION: Normal x-ray examination of the abdomen and pelvis. Electronically Signed: Stef Mendez DO at 0:53 EDT Tel , Service support ,
[2021-02-08 23:30] LABS: Mucous, Urine 0 SEEN /hpf (<or=2+); Red Blood Cells-Urine 0 SEEN /hpf (0-5)
--- NOTE | 2021-02-08 23:35 | NURSING ---
X-ray to floor to do KUB at this time.
[2021-02-09 00:19] LABS: Color, Urine Yellow (Yellow); Glucose, Dipstick Normal (Normal); Ketone-Dipstick Negative (Negative); Leukocyte Esterase-Dipstick 500 /ul (Negative); Nitrite-Dipstick Negative (Negative); Occult Blood-Urine Negative /ul (Negative); Protein-Dipstick Negative (Negative); Urine Bilirubin Dipstick Negative (Negative); Urine Clarity Clear (Clear); Urine Urobilinogen Normal (Normal)
[2021-02-09 00:26] LABS: Bacteria 4+ /hpf (None Seen); Squamous Epithelial Cells - UA 0-5 SEEN /hpf (5-10); White Blood Cells 10-25 SEEN /hpf (0-5)
[2021-02-09 05:00] VITALS: BP 120/48; PULSE 72; RESP 16; TEMP 36.9; O2SAT 96
[2021-02-09] MEDS: Menthol/Lanolin/Calamine/Znox 113 GM Tube 1 APPLIC TOPICAL ×3 (05:04→19:25)
[2021-02-09] MEDS: amLODIPine 10 MG Tablet PO (05:05)
[2021-02-09] MEDS: Furosemide 40 MG Tablet PO (05:05)
[2021-02-09] MEDS: Gabapentin 100 MG Capsule PO ×2 (05:05→17:20)
[2021-02-09] MEDS: DULoxetine Hcl 60 MG Capsule PO ×2 (05:05→17:20)
[2021-02-09] MEDS: Pantoprazole Sodium 40 MG Tablet PO ×2 (05:05→17:20)
[2021-02-09] MEDS: Sucralfate 1 GM Tablet PO ×4 (05:05→19:24)
[2021-02-09] MEDS: buPROPion 75 MG Tablet PO ×2 (05:05→17:20)
[2021-02-09] MEDS: Atenolol 25 MG Tablet PO ×2 (05:05→17:21)
[2021-02-09] MEDS: Senna/Docusate Sodium 1 Tablet PO ×2 (05:06→17:21)
[2021-02-09] MEDS: Albuterol Sulfate 8 gm Inhaler (60 puffs) 2 PUFF INHALATION ×2 (05:06→17:25)
[2021-02-09] MEDS: Nystatin Powder 15gm Bottle 1 APPLIC TOPICAL ×3 (05:07→19:24)
[2021-02-09] MEDS: Juven (unflavored) Packet 1 PACKET PO ×2 (08:27→16:07)
[2021-02-09] MEDS: Multivitamins,Therapeutic Tablet 1 TABLET PO (08:27)
[2021-02-09] MEDS: Hydroxychloroquine 200 MG Tablet PO ×2 (08:27→16:10)
[2021-02-09] MEDS: Ferrous Sulfate 325 MG Tablet PO (08:28)
[2021-02-09] MEDS: Acetaminophen 500 MG Tablet 1000 MG PO ×2 (09:09→15:22)
[2021-02-09 13:48] VITALS: BP 104/56; PULSE 79; RESP 20; TEMP 36.8; O2SAT 99
--- NOTE | 2021-02-09 14:27 | CASEMGMT ---
Addendum entered by Anne-Marie Molina 02/09/21 16:19: Telephone call received from Abena at [facility]. Abena confirms to be able to accept patient on 02/15/2021. Updated clinicals to be faxed when obtained. Original Note: Social Work Team setting discharge date for 02/15/2021 and recommending discharge to an extended care facility. Met with patient in room. This social attempted to communicate above information to patient. Patient appears to be confused and is oriented to self only. This social media marketing specialist communicated to patient that plan is for patient to transition to [facility] at time of discharge. Patient does not ignore or acknowledge this social media marketing specialist. Patient denies any questions. Telephone call to patient daughter, Candi. This social media marketing specialist communicated above information. Candi voiced understanding and confirms plan for [facility]. Telephone call to Abena Smiley. No answer. Voicemail left. Proposed discharge date: 02/15/2021 Will continue to follow. GRICELDA Sheffield, RY-S
[2021-02-09 16:11] VITALS: BP 137/56; PULSE 78
--- NOTE | 2021-02-09 17:53 | NURSING ---
Dr. Terry appointment was cancelled by family.
[2021-02-09] MEDS: Pramipexole Di-HCl 0.25 MG Tablet PO (19:24)
[2021-02-09] MEDS: Gabapentin 300 MG Capsule PO (19:24)
[2021-02-10] MEDS: Sucralfate 1 GM Tablet PO ×4 (04:58→21:39)
[2021-02-10] MEDS: amLODIPine 10 MG Tablet PO (04:59)
[2021-02-10] MEDS: Nystatin Powder 15gm Bottle 1 APPLIC TOPICAL ×3 (04:59→21:39)
[2021-02-10] MEDS: buPROPion 75 MG Tablet PO ×2 (04:59→17:00)
[2021-02-10] MEDS: Pantoprazole Sodium 40 MG Tablet PO ×2 (04:59→17:02)
[2021-02-10] MEDS: DULoxetine Hcl 60 MG Capsule PO ×2 (04:59→17:00)
[2021-02-10] MEDS: Gabapentin 100 MG Capsule PO ×2 (04:59→17:00)
[2021-02-10] MEDS: Furosemide 40 MG Tablet PO (04:59)
[2021-02-10] MEDS: Albuterol Sulfate 8 gm Inhaler (60 puffs) 2 PUFF INHALATION ×2 (04:59→17:00)
[2021-02-10] MEDS: Atenolol 25 MG Tablet PO ×2 (04:59→17:00)
[2021-02-10 05:00] VITALS: BP 131/82; PULSE 73; RESP 18; TEMP 36.3; O2SAT 97
[2021-02-10] MEDS: Senna/Docusate Sodium 1 Tablet PO ×2 (05:00→17:03)
[2021-02-10] MEDS: Menthol/Lanolin/Calamine/Znox 113 GM Tube 1 APPLIC TOPICAL ×3 (05:01→21:40)
[2021-02-10 06:11] LABS: Absolute Lymphocyte Count 1.32 X10^3/uL (0.83-4.51); Absolute Neutrophil Count 5.1 X10^3/uL (2.0-7.7); Basophil# 0.06 X10^3/uL; Basophil% 0.8 % (0-1); Hematocrit 31.1 % (37-47); Hemoglobin 9.9 g/dL (12.0-15.0); Lymphocyte # 1.32 X10^3/ul (0.83-4.51); Lymphocyte % 17.5 % (19-41); Mean Corp Hgb Conc 31.8 g/dL (32-36); Mean Corpuscular Hgb 28.3 pg (27.0-32.0); Mean Corpuscular Volume 88.9 fL (81-99); Mean Platelet Vol. 9.4 fl (6.2-12.0); Monocyte# 0.91 X10^3/uL; NRBC Flagged by Analyzer 0 % (0-5); Neutrophil # 5.14 X10^3/uL (2.7-7.7); Platelet Count 209 K/mm3 (150-450); RBC Distribution Width CV 16.5 % (11.6-14.6); RBC Distribution Width SD 53.3 fl (35.1-43.9); White Blood Count 7.6 K/mm3 (4.4-11.0)
[2021-02-10 06:37] LABS: Anion Gap 7 (5-15); BUN 82 mg/dL (7-18); BUN/Creat Ratio 48.5 RATIO (10-20); Calcium,Total 9.4 mg/dL (8.5-10.1); Chloride 102 mmol/L (98-107); Creatinine, Serum 1.69 mg/dL (0.55-1.02); EST Glomerular Filtration Rate 31 mL/min (>60); Est Glom Filt Rate - Afr Amer 37 mL/min (>60); Estimated Creatinine Clearance 29.81 ml/min; Glucose 90 mg/dL (74-106); Potassium 4.1 mmol/L (3.5-5.1); Sodium Level 138 mmol/L (136-145)
[2021-02-10] MEDS: Juven (unflavored) Packet 1 PACKET PO ×2 (07:42→17:00)
[2021-02-10] MEDS: Multivitamins,Therapeutic Tablet 1 TABLET PO (07:42)
[2021-02-10] MEDS: Hydroxychloroquine 200 MG Tablet PO ×2 (07:42→17:00)
[2021-02-10] MEDS: Ferrous Sulfate 325 MG Tablet PO (07:42)
--- NOTE | 2021-02-10 07:48 | DS.PCM_ITS ---
Providers Date of Admission: 01/19/21 Primary Care Physician: Dr. Candice Amado, Consultations 01/31/21 10:07 Consult: Onc/Wound/creative developer Routine Comment: Pressure Injury Reason For Visit: UPPER GI BLEED Diagnosis Discharge Diagnosis (1) S/P small bowel resection: Status: Acute Code(s): Z90.49 - Acquired absence of other specified parts of digestive tract (2) Small bowel perforation: Status: Inactive Code(s): K63.1 - Perforation of intestine (nontraumatic) Medications at Discharge Home Medications atenolol 25 mg PO BID 06/09/15 multivitamin with folic acid [Thera] 1 tab PO DAILY 01/29/18 ferrous sulfate 325 mg PO DAILY 10/19/19 duloxetine 60 mg PO BID 12/31/20 gabapentin 100 mg PO BID 12/31/20 gabapentin 300 mg capsule 300 mg PO QHS cap 12/31/20 hydroxychloroquine 200 mg tablet 200 mg PO BID tab 12/31/20 amlodipine 10 mg PO DAILY 01/09/21 sennosides-docusate sodium [Stool Softener-Stimulant Laxat] 1 tab-cap PO BID 01/09/21 bupropion HCl 75 mg PO BID 01/16/21 pramipexole [Mirapex] 0.25 mg PO QHS 01/16/21 furosemide 40 mg PO DAILY 01/19/21 pantoprazole 40 mg PO BID 01/19/21 sucralfate 1 g PO 1HR_ACHS 01/19/21 acetaminophen 1,000 mg PO Q6H PRN PRN #0 tab 02/10/21 albuterol sulfate [Ventolin HFA] 2 puff INHALATION BID #0 g 02/10/21 [id number]-JuLEE-iqteaf-ab-rve [Jonathan (with collagen)] 1 packet PO BIDCM #0 ea 02/10/21 menthol-zinc oxide [Calmoseptine] 1 applic TOPICAL TID #0 g 02/10/21 nystatin [Nyamyc] 1 applic TOPICAL TID #0 g 02/10/21 sumatriptan succinate 6 mg SUBCUT DAILY PRN #0 ml 02/10/21 Hospital Course Operations None Procedures EGD Summary of Care Provided Minutes Spent on Discharge: 35 Hospital Course: 85 year old female with below past medical history hospit alized for upper gastrointestinal bleed secondary to gastric ulcer, complicated by dysphagia, admittedd to TCU with debility, here for rehabilitation, strengthening, prior to discharge home with family. Discharge to [facility] 02/15/2021, intermediate level of care. Physical Exam Const alert and oriented x3 General Appearance: cooperative HEENT normocephalic Eyes PERRL and EOMs intact bilaterally Neck supple, no JVD and no carotid bruits Resp normal respiratory effort, normal air movement and clear to auscultation bilaterally Cardio regular rate and regular rhythm GI normal to inspection, nondistended, normoactive bowel sounds, non-tender and non-distended Extremity normal capillary refill General Extremity: Negative for edema Skin no rashes or lesions noted General Skin Exam: no breakdown Psych affect normal Appearance: appropriate Weight / BMI Weight Weight: 76.204 kg Body Mass Index (BMI) 42.2 ABG / Lab / Microbiology Data Result Diagrams: 02/10/21 05:01 02/10/21 05:01 Laboratory: Laboratory Results - last 24 hr 02/10/21 02/10/21 05:01 05:01 WBC 7.6 RBC 3.50 L Hgb 9.9 L Hct 31.1 L MCV 88.9 MCH 28.3 MCHC 31.8 L RDW Std Deviation 53.3 H RDW Coeff of Laxmi 16.5 H Plt Count 209 MPV 9.4 Immature Gran % (Auto) 1.700 H Neut % (Auto) 68.0 Lymph % (Auto) 17.5 L Clay % (Auto) 12.0 H Eos % (Auto) 0.0 Baso % (Auto) 0.8 Absolute Neuts (auto) 5.1 Absolute Lymphs (auto) 1.32 Nucleated RBC % 0 Sodium 138 Potassium 4.1 Chloride 102 Carbon Dioxide 29.0 Anion Gap 7 BUN 82 H Creatinine 1.69 H Estim Creat Clear Calc 29.81 Est GFR (MDRD) Af Amer 37 L Est GFR (MDRD) Non-Af 31 L BUN/Creatinine Ratio 48.5 H Glucose 90 Calcium 9.4 Microbiology: Microbiology 02/02/21 13:30 Nasal Secretion SARS-CoV-2 Antigen (Rapid) - Final 01/27/21 11:15 Interface Orders SARS-CoV-2 Antigen (Rapid) - Final D/C Instructions Discharge Diet: No restrictions Discharge Activity: Return to Normal Activity, May Shower and Use Walker Weight Bearing Status: Weight bearing as tolerated Call your doctor if you observe: Fever of 101 or Higher, Inability to urinate, Inability to have a bowel movement, Shortness of breath, Dizziness, Fainting spells, Swelling in the ankles, Chest pain and Uncontrolled pain Additional Instructions: Discharge to [facility] 02/15/2021, intermediate level of care. Please Follow Up With: Nnamdi Cooper MD Meaningful Use Info Meaningful Use Diagnoses (Choose all that apply): None applicable Discharge Plan Admission Admit Date/Time: 01/19/21 16:35 Primary Reason for Your Visit: Debility Attending Provider: Neel Duran Chi Primary Care Provider: Candice Amado Instructions Additional Instructions / Restrictions: Discharge to [facility] 02/15/2021, intermediate level of care. Discharge Orders/Prescriptions Prescriptions: New acetaminophen 500 mg Tablet 1,000 mg PO Q6H PRN PRN (Reason: Pain Score 1-10) Qty: 0 RF: 0 sumatriptan succinate 6 mg/0.5 mL Solution 6 mg subcut DAILY PRN (Reason: MIGRAINE SYMPTOMS) Qty: 0 RF: 0 nystatin [Nyamyc] 100,000 unit/gram Powder 1 applic topical TID Qty: 0 RF: 0 albuterol sulfate [Ventolin HFA] 90 mcg/actuation Hfa Aerosol Inhaler 2 puff inhalation BID Qty: 0 RF: 0 Calmoseptine 0.44-20.6 % Ointment 1 applic topical TID Qty: 0 RF: 0 Jonathan (with collagen) 7-7-1.5 gram Powder In Packet 1 packet PO BIDCM Qty: 0 RF: 0 Continued gabapentin 300 mg capsule 300 mg PO QHS RF: 0 hydroxychloroquine 200 mg tablet 200 mg PO BID RF: 0 atenolol 25 MG tablet 25 mg PO BID RF: 0 multivitamin with folic acid [Thera] 1 TABLET tablet 1 tab PO DAILY RF: 0 ferrous sulfate 325 MG tablet 325 mg PO DAILY RF: 0 gabapentin 100 mg capsule 100 mg PO BID RF: 0 duloxetine 60 mg capsule,delayed release(DR/EC) 60 mg PO BID RF: 0 amlodipine 10 mg tablet 10 mg PO DAILY RF: 0 sennosides-docusate sodium [Stool Softener-Stimulant Laxat] 8.6-50 mg tablet 1 tab-cap PO BID RF: 0 bupropion HCl 75 mg Tablet 75 mg PO BID RF: 0 pramipexole [Mirapex] 0.25 mg Tablet 0.25 mg PO QHS RF: 0 furosemide 40 mg tablet 40 mg PO DAILY RF: 0 sucralfate 1 gram tablet 1 g PO 1HR_ACHS RF: 0 pantoprazole 40 mg tablet,delayed release (DR/EC) 40 mg PO BID RF: 0 Discontinued ropinirole 0.5 mg tablet 0.5 mg PO QHS RF: 0 sumatriptan succinate [Imitrex] 100 MG tablet 100 mg PO .X1 PRN PRN (Reason: Migraine Headache) RF: 0 albuterol sulfate 1 PUFF inhaler 1 - 2 puff inhalation Q4H PRN PRN (Reason: Sob &/Or Wheezing) Qty: 1 RF: 0 polyethylene glycol 3350 17 gram Powder In Packet 17 g PO DAILY PRN (Reason: constipation) 30 Days Qty: 30 RF: 0 Calmoseptine 0.44-20.6 % Ointment 1 applic topical TID Qty: 71 RF: 0 acetaminophen [Tylenol] 325 mg Tablet 650 mg PO Q6H PRN PRN (Reason: Pain Score 1-10/Temp > 100.7 F) 30 Days Qty: 30 RF: 0 ipratropium-albuterol 0.5 mg-3 mg(2.5 mg base)/3 mL solution for nebulization 3 ml inhalation Q6HWA.RT RF: 0 nystatin 1 APPLIC powder 1 applic TOPICAL TID RF: 0 levofloxacin 500 mg tablet 500 mg PO Q48@0600 RF: 0 tolterodine [Detrol LA] 4 mg Capsule,Extended Release 24hr 4 mg PO DAILY RF: 0 Jonathan 7-7-1.5 gram Powder In Packet 1 ea PO BID RF: 0 enoxaparin [Lovenox] 80 mg/0.8 mL syringe 80 mg subcut Q12H Qty: 0 RF: 0 potassium chloride 20 mEq tablet extended release 20 meq PO DAILY RF: 0 Referrals / Follow Up: Candice Amado DO [Primary Care Provider] - Disposition Disposition (needs filled in before D/C Order can be placed): NonSkilled NH/Intermed Care
--- NOTE | 2021-02-10 07:56 | TREXTCAR_ITS ---
Diet 01/19/21 17:20 Diet: Regular - General Food consistency:: Soft & Bite Sized Liquid Consistency:: Regular/Thin Type of Dietary Supplement:: Ensure Enlive Diet Comments: meat cut up; 1:1 supervised; 120 ml ensure enlive w/ meals - not chocolate Routine Orders/Code Status Suppository Type: Dulcolax 10mg Suppository Frequency: Daily PRN Code Status: Full Code Wound(s) abdomen: Wound Type: Surgical Incision Dressing Change: Dry Sterile Dressing right fa: Wound Type: Skin Tear Dressing Change: adaptic right wrist: Wound Type: Skin Tear Dressing Change: adaptic Coccyx: Wound Type: shearing Dressing Change: yfn right buttock: Wound Type: shearing Dressing Change: yfn Therapies Weight Bearing: Weight bearing as tolerated Extremity Affected:: Bilateral Lower Physical Therapy: Eval and Treat Occupational Therapy: Eval and Treat Speech Therapy: Eval and Treat Problem/Diagnosis (1) S/P small bowel resection: Status: Acute (2) Small bowel perforation: Status: Inactive Comment: s/p SBR and excision of mesh Allergies/Procedures Done in Hospital Allergies No Known Allergies Allergy (Verified 01/15/21 09:17) Procedures: EGD Type of Care/Length of Stay Estimated LOS: More Than 30 Days Type of Care Needed: Skilled Rehab Potential: Fair Prognosis: Fair Additional Orders/Day of Discharge Additional Orders: Patient to continue to follow with Palliative Care through [facility]. Day of Discharge: 02/15/21 Dietary and Speech Recommendations Dietitian Recommendations/Changes: Will continue diet as ordered Will continue Jonathan bid to help w/ surgical incision healing Will continue 120 ml ensure enlive w/ meals for increased nutrition if consumed. Speech Linguistic Eval Summary: Pt pleasant and agreeable to ST eval. Pt oriented to self, , current month/year (off by one day for date), and location (with time to recall). Pt able to follow verbal directions with occasional further explanation required. Pt able to name objects in room /10. Pt with occasional word finding difficulty in conversational speech. Pt required reminders how to use call light for assistance. Pt demonstrating forg etfulness during conversation however does deny any memory deficits. Pt lives with daughter and requires complete assistance with med/finance tasks. Follow Up Care Please Follow Up With: Nnamdi Cooper MD When: 2 Weeks Please Follow Up With: Candice Amado DO When: 2 weeks Discharge Plan Admission Admit Date/Time: 01/19/21 16:35 Primary Reason for Your Visit: Debility Attending Provider: Neel Duran Chi Primary Care Provider: Candice Amado Instructions Additional Instructions / Restrictions: Discharge to [facility] 02/15/2021, intermediate level of care. Discharge Orders/Prescriptions Prescriptions: New acetaminophen 500 mg Tablet 1,000 mg PO Q6H PRN PRN (Reason: Pain Score 1-10) Qty: 0 RF: 0 sumatriptan succinate 6 mg/0.5 mL Solution 6 mg subcut DAILY PRN (Reason: MIGRAINE SYMPTOMS) Qty: 0 RF: 0 nystatin [Nyamyc] 100,000 unit/gram Powder 1 applic topical TID Qty: 0 RF: 0 albuterol sulfate [Ventolin HFA] 90 mcg/actuation Hfa Aerosol Inhaler 2 puff inhalation BID Qty: 0 RF: 0 Calmoseptine 0.44-20.6 % Ointment 1 applic topical TID Qty: 0 RF: 0 Jonathan (with collagen) 7-7-1.5 gram Powder In Packet 1 packet PO BIDCM Qty: 0 RF: 0 Continued gabapentin 300 mg capsule 300 mg PO QHS RF: 0 hydroxychloroquine 200 mg tablet 200 mg PO BID RF: 0 atenolol 25 MG tablet 25 mg PO BID RF: 0 multivitamin with folic acid [Thera] 1 TABLET tablet 1 tab PO DAILY RF: 0 ferrous sulfate 325 MG tablet 325 mg PO DAILY RF: 0 gabapentin 100 mg capsule 100 mg PO BID RF: 0 duloxetine 60 mg capsule,delayed release(DR/EC) 60 mg PO BID RF: 0 amlodipine 10 mg tablet 10 mg PO DAILY RF: 0 sennosides-docusate sodium [Stool Softener-Stimulant Laxat] 8.6-50 mg tablet 1 tab-cap PO BID RF: 0 bupropion HCl 75 mg Tablet 75 mg PO BID RF: 0 pramipexole [Mirapex] 0.25 mg Tablet 0.25 mg PO QHS RF: 0 furosemide 40 mg tablet 40 mg PO DAILY RF: 0 sucralfate 1 gram tablet 1 g PO 1HR_ACHS RF: 0 pantoprazole 40 mg tablet,delayed release (DR/EC) 40 mg PO BID RF: 0 Discontinued ropinirole 0.5 mg tablet 0.5 mg PO QHS RF: 0 sumatriptan succinate [Imitrex] 100 MG tablet 100 mg PO .X1 PRN PRN (Reason: Migraine Headache) RF: 0 albuterol sulfate 1 PUFF inhaler 1 - 2 puff inhalation Q4H PRN PRN (Reason: Sob &/Or Wheezing) Qty: 1 RF: 0 polyethylene glycol 3350 17 gram Powder In Packet 17 g PO DAILY PRN (Reason: constipation) 30 Days Qty: 30 RF: 0 Calmoseptine 0.44-20.6 % Ointment 1 applic topical TID Qty: 71 RF: 0 acetaminophen [Tylenol] 325 mg Tablet 650 mg PO Q6H PRN PRN (Reason: Pain Score 1-10/Temp > 100.7 F) 30 Days Qty: 30 RF: 0 ipratropium-albuterol 0.5 mg-3 mg(2.5 mg base)/3 mL solution for nebulization 3 ml inhalation Q6HWA.RT RF: 0 nystatin 1 APPLIC powder 1 applic TOPICAL TID RF: 0 levofloxacin 500 mg tablet 500 mg PO Q48@0600 RF: 0 tolterodine [Detrol LA] 4 mg Capsule,Extended Release 24hr 4 mg PO DAILY RF: 0 Jonathan 7-7-1.5 gram Powder In Packet 1 ea PO BID RF: 0 enoxaparin [Lovenox] 80 mg/0.8 mL syringe 80 mg subcut Q12H Qty: 0 RF: 0 potassium chloride 20 mEq tablet extended release 20 meq PO DAILY RF: 0 Referrals / Follow Up: Candice Amado DO [Primary Care Provider] - Disposition Disposition (needs filled in before D/C Order can be placed): NonSkilled NH/Intermed Care
[2021-02-10 08:57] VITALS: PULSE 74; RESP 18
--- NOTE | 2021-02-10 09:45 | PCA ---
Reweighed pt with the [employer], tried to edit/change & add it in the computer but it was not allowing me to do so. Nurse aidmario Mcclelland entered the reweigh of patient.
[2021-02-10 14:00] VITALS: BP 96/59; PULSE 75; RESP 17; TEMP 36.3; O2SAT 97
[2021-02-10] MEDS: Gabapentin 300 MG Capsule PO (21:39)
[2021-02-10] MEDS: Cefdinir 300 MG Capsule PO (21:39)
[2021-02-10] MEDS: Pramipexole Di-HCl 0.25 MG Tablet PO (21:39)
[2021-02-11 05:00] VITALS: BP 105/53; PULSE 70; RESP 18; TEMP 36.4; O2SAT 95
[2021-02-11] MEDS: Albuterol Sulfate 8 gm Inhaler (60 puffs) 2 PUFF INHALATION ×2 (05:44→17:05)
[2021-02-11] MEDS: Cefdinir 300 MG Capsule PO ×2 (05:44→17:03)
[2021-02-11] MEDS: Pantoprazole Sodium 40 MG Tablet PO ×2 (05:44→17:03)
[2021-02-11] MEDS: Furosemide 40 MG Tablet PO (05:44)
[2021-02-11] MEDS: Atenolol 25 MG Tablet PO ×2 (05:44→17:04)
[2021-02-11] MEDS: buPROPion 75 MG Tablet PO ×2 (05:44→17:03)
[2021-02-11] MEDS: DULoxetine Hcl 60 MG Capsule PO ×2 (05:44→17:02)
[2021-02-11] MEDS: amLODIPine 10 MG Tablet PO (05:44)
[2021-02-11] MEDS: Sucralfate 1 GM Tablet PO ×4 (05:44→20:11)
[2021-02-11] MEDS: Gabapentin 100 MG Capsule PO ×2 (05:44→17:03)
[2021-02-11] MEDS: Senna/Docusate Sodium 1 Tablet PO ×2 (05:44→17:04)
[2021-02-11] MEDS: Menthol/Lanolin/Calamine/Znox 113 GM Tube 1 APPLIC TOPICAL ×3 (05:45→20:12)
[2021-02-11] MEDS: Nystatin Powder 15gm Bottle 1 APPLIC TOPICAL ×3 (05:45→20:23)
[2021-02-11] MEDS: Hydroxychloroquine 200 MG Tablet PO ×2 (07:44→17:02)
[2021-02-11] MEDS: Multivitamins,Therapeutic Tablet 1 TABLET PO (07:44)
[2021-02-11] MEDS: Juven (unflavored) Packet 1 PACKET PO ×2 (07:44→17:02)
[2021-02-11] MEDS: Ferrous Sulfate 325 MG Tablet PO (07:44)
[2021-02-11] MEDS: Acetaminophen 500 MG Tablet 1000 MG PO (13:07)
[2021-02-11 13:15] VITALS: BP 105/56; PULSE 62; RESP 18; TEMP 36.8; O2SAT 95
--- NOTE | 2021-02-11 15:32 | CASEMGMT ---
Brief interview for mental status (BIMS) and resident mood assessment (PHQ-9) completed on this day. Pilar MADISON, RAJESHS
[2021-02-11] MEDS: SUMAtriptan 6 MG/0.5 ML Vial SC (16:59)
[2021-02-11] MEDS: Pramipexole Di-HCl 0.25 MG Tablet PO (20:12)
[2021-02-11] MEDS: Gabapentin 300 MG Capsule PO (20:13)
[2021-02-11 21:59] VITALS: PULSE 70; RESP 18; O2SAT 97
[2021-02-12 05:00] VITALS: BP 116/51; PULSE 71; RESP 18; TEMP 36.3; O2SAT 96
[2021-02-12] MEDS: Menthol/Lanolin/Calamine/Znox 113 GM Tube 1 APPLIC TOPICAL ×3 (05:12→20:58)
[2021-02-12] MEDS: Nystatin Powder 15gm Bottle 1 APPLIC TOPICAL ×3 (05:13→20:58)
[2021-02-12] MEDS: Cefdinir 300 MG Capsule PO ×2 (05:13→16:38)
[2021-02-12] MEDS: Sucralfate 1 GM Tablet PO ×4 (05:13→20:58)
[2021-02-12] MEDS: Albuterol Sulfate 8 gm Inhaler (60 puffs) 2 PUFF INHALATION ×2 (05:13→16:42)
[2021-02-12] MEDS: Gabapentin 100 MG Capsule PO ×2 (05:14→16:38)
[2021-02-12] MEDS: amLODIPine 10 MG Tablet PO (05:14)
[2021-02-12] MEDS: Senna/Docusate Sodium 1 Tablet PO ×2 (05:14→16:39)
[2021-02-12] MEDS: Pantoprazole Sodium 40 MG Tablet PO ×2 (05:14→16:37)
[2021-02-12] MEDS: Furosemide 40 MG Tablet PO (05:14)
[2021-02-12] MEDS: DULoxetine Hcl 60 MG Capsule PO ×2 (05:14→16:38)
[2021-02-12] MEDS: buPROPion 75 MG Tablet PO ×2 (05:14→16:38)
[2021-02-12] MEDS: Atenolol 25 MG Tablet PO (05:14)
[2021-02-12] MEDS: Juven (unflavored) Packet 1 PACKET PO ×2 (07:27→16:38)
[2021-02-12] MEDS: Hydroxychloroquine 200 MG Tablet PO ×2 (07:27→16:38)
[2021-02-12] MEDS: Ferrous Sulfate 325 MG Tablet PO (07:27)
[2021-02-12] MEDS: Multivitamins,Therapeutic Tablet 1 TABLET PO (07:27)
[2021-02-12 08:14] VITALS: PULSE 73; O2SAT 97
[2021-02-12 15:37] VITALS: BP 104/44; PULSE 84; RESP 18; TEMP 36.5; O2SAT 96
[2021-02-12 17:49] VITALS: BP 124/48; PULSE 71
--- NOTE | 2021-02-12 18:46 | CASEMGMT ---
Social Work Pt to be discharged to [facility] on Monday02/15/21. PASSRR completed and faxed along with orders to [place]. Transportation arranged with [facility] for 2:00 vegetable picker via cot. Pt dgt Candi updated and agreeable to discharge plan. Discharge orders faxed to palliative medicine. Pt will need a covid test prior to discharge and nursing updated. MABEL Worthy
[2021-02-12] MEDS: Acetaminophen 500 MG Tablet 1000 MG PO (19:39)
[2021-02-12] MEDS: Pramipexole Di-HCl 0.25 MG Tablet PO (20:58)
[2021-02-12] MEDS: Gabapentin 300 MG Capsule PO (20:58)
[2021-02-13 05:00] VITALS: BP 155/53; PULSE 71; RESP 16; TEMP 36.9; O2SAT 98
[2021-02-13] MEDS: Furosemide 40 MG Tablet PO (06:20)
[2021-02-13] MEDS: Albuterol Sulfate 8 gm Inhaler (60 puffs) 2 PUFF INHALATION ×2 (06:20→16:59)
[2021-02-13] MEDS: Pantoprazole Sodium 40 MG Tablet PO ×2 (06:20→16:57)
[2021-02-13] MEDS: amLODIPine 10 MG Tablet PO (06:20)
[2021-02-13] MEDS: Gabapentin 100 MG Capsule PO ×2 (06:20→17:06)
[2021-02-13] MEDS: DULoxetine Hcl 60 MG Capsule PO ×2 (06:20→16:57)
[2021-02-13] MEDS: Atenolol 25 MG Tablet PO ×2 (06:20→16:57)
[2021-02-13] MEDS: buPROPion 75 MG Tablet PO ×2 (06:20→17:00)
[2021-02-13] MEDS: Senna/Docusate Sodium 1 Tablet PO ×2 (06:20→16:58)
[2021-02-13] MEDS: Sucralfate 1 GM Tablet PO ×4 (06:20→19:52)
[2021-02-13] MEDS: Cefdinir 300 MG Capsule PO ×2 (06:20→16:57)
[2021-02-13] MEDS: Nystatin Powder 15gm Bottle 1 APPLIC TOPICAL ×3 (06:21→19:51)
[2021-02-13] MEDS: Menthol/Lanolin/Calamine/Znox 113 GM Tube 1 APPLIC TOPICAL ×3 (06:22→19:51)
[2021-02-13] MEDS: Juven (unflavored) Packet 1 PACKET PO ×2 (08:06→16:49)
[2021-02-13] MEDS: Ferrous Sulfate 325 MG Tablet PO (08:06)
[2021-02-13] MEDS: Hydroxychloroquine 200 MG Tablet PO ×2 (08:07→16:53)
[2021-02-13] MEDS: Multivitamins,Therapeutic Tablet 1 TABLET PO (08:07)
[2021-02-13] MEDS: Acetaminophen 500 MG Tablet 1000 MG PO (08:10)
--- NOTE | 2021-02-13 14:23 | NURSING ---
FAMILY UPDATED AT VISIT
[2021-02-13 15:26] VITALS: BP 106/50; PULSE 75; RESP 20; TEMP 36.3; O2SAT 96
[2021-02-13] MEDS: Gabapentin 300 MG Capsule PO (19:51)
[2021-02-13] MEDS: Pramipexole Di-HCl 0.25 MG Tablet PO (19:51)
[2021-02-13 21:00] VITALS: PULSE 81; O2SAT 98
[2021-02-14] MEDS: Menthol/Lanolin/Calamine/Znox 113 GM Tube 1 APPLIC TOPICAL ×3 (04:57→20:28)
[2021-02-14] MEDS: Albuterol Sulfate 8 gm Inhaler (60 puffs) 2 PUFF INHALATION ×2 (04:57→16:57)
[2021-02-14] MEDS: Cefdinir 300 MG Capsule PO ×2 (04:58→16:55)
[2021-02-14] MEDS: Nystatin Powder 15gm Bottle 1 APPLIC TOPICAL ×3 (04:58→20:28)
[2021-02-14] MEDS: buPROPion 75 MG Tablet PO ×2 (04:58→16:56)
[2021-02-14] MEDS: Pantoprazole Sodium 40 MG Tablet PO ×2 (04:58→16:55)
[2021-02-14] MEDS: Sucralfate 1 GM Tablet PO ×4 (04:58→20:28)
[2021-02-14] MEDS: amLODIPine 10 MG Tablet PO (04:59)
[2021-02-14] MEDS: Gabapentin 100 MG Capsule PO ×2 (04:59→16:54)
[2021-02-14] MEDS: DULoxetine Hcl 60 MG Capsule PO ×2 (04:59→16:54)
[2021-02-14] MEDS: Atenolol 25 MG Tablet PO ×2 (04:59→16:59)
[2021-02-14] MEDS: Senna/Docusate Sodium 1 Tablet PO ×2 (04:59→16:55)
[2021-02-14] MEDS: Furosemide 40 MG Tablet PO (04:59)
[2021-02-14 05:00] VITALS: BP 123/64; PULSE 71; RESP 18; TEMP 36.5; O2SAT 95
[2021-02-14] MEDS: Multivitamins,Therapeutic Tablet 1 TABLET PO (08:58)
[2021-02-14] MEDS: Ferrous Sulfate 325 MG Tablet PO (08:58)
[2021-02-14] MEDS: Juven (unflavored) Packet 1 PACKET PO ×2 (08:58→16:53)
[2021-02-14] MEDS: Hydroxychloroquine 200 MG Tablet PO ×2 (08:59→16:54)
[2021-02-14 09:10] VITALS: PULSE 81; RESP 18; O2SAT 92
[2021-02-14] MEDS: SUMAtriptan 6 MG/0.5 ML Vial SC (11:29)
[2021-02-14 14:42] VITALS: BP 135/60; PULSE 81; RESP 18; TEMP 36.4; O2SAT 96
[2021-02-14] MEDS: Acetaminophen 500 MG Tablet 1000 MG PO (17:02)
[2021-02-14] MEDS: Pramipexole Di-HCl 0.25 MG Tablet PO (20:28)
[2021-02-14] MEDS: Gabapentin 300 MG Capsule PO (20:32)
[2021-02-15 05:00] VITALS: BP 139/64; PULSE 68; RESP 18; O2SAT 98
[2021-02-15] MEDS: DULoxetine Hcl 60 MG Capsule PO (05:25)
[2021-02-15] MEDS: Gabapentin 100 MG Capsule PO (05:25)
[2021-02-15] MEDS: Furosemide 40 MG Tablet PO (05:25)
[2021-02-15] MEDS: amLODIPine 10 MG Tablet PO (05:25)
[2021-02-15] MEDS: Acetaminophen 500 MG Tablet 1000 MG PO ×2 (05:25→13:47)
[2021-02-15] MEDS: Albuterol Sulfate 8 gm Inhaler (60 puffs) 2 PUFF INHALATION (05:26)
[2021-02-15] MEDS: Pantoprazole Sodium 40 MG Tablet PO (05:26)
[2021-02-15] MEDS: Atenolol 25 MG Tablet PO (05:26)
[2021-02-15] MEDS: Nystatin Powder 15gm Bottle 1 APPLIC TOPICAL (05:26)
[2021-02-15] MEDS: buPROPion 75 MG Tablet PO (05:26)
[2021-02-15] MEDS: Menthol/Lanolin/Calamine/Znox 113 GM Tube 1 APPLIC TOPICAL (05:26)
[2021-02-15] MEDS: Sucralfate 1 GM Tablet PO ×2 (05:26→10:58)
[2021-02-15] MEDS: Cefdinir 300 MG Capsule PO (05:26)
[2021-02-15] MEDS: Senna/Docusate Sodium 1 Tablet PO (05:27)
[2021-02-15] MEDS: Ferrous Sulfate 325 MG Tablet PO (08:34)
[2021-02-15] MEDS: Multivitamins,Therapeutic Tablet 1 TABLET PO (08:34)
[2021-02-15] MEDS: Juven (unflavored) Packet 1 PACKET PO (08:34)
[2021-02-15] MEDS: Hydroxychloroquine 200 MG Tablet PO (08:34)
--- NOTE | 2021-02-15 10:01 | CASEMGMT ---
Social Work COVID-[address] [facility]. Pilar Molina MSW, PETER
[2021-02-15] MEDS: SUMAtriptan 6 MG/0.5 ML Vial SC (11:00)
--- NOTE | 2021-02-15 11:10 | NURSING ---
see therapy notes for functional abilities/assessments
--- NOTE | 2021-02-15 11:37 | NURSING ---
voice mail left at [facility] nurses station [facility] requesting return phone call for nurse to nurse report for a pt who will be arriving at their facility around 1400, phone number to [facility] nurses station provided.
[2021-02-15 13:01] VITALS: BP 109/59; PULSE 80; RESP 18; TEMP 36.1; O2SAT 98
== END 2021-02-15 14:15 | disposition intermediate care facility (04) | DRG 811 ==
PROVIDERS: Admitting Provider Family Medicine Geriatric Medicine; PCP Internal Medicine; Visit Provider Family Medicine Geriatric Medicine
DX: D50.9 Iron deficiency anemia, unspecified (principal); K25.4 Chronic or unspecified gastric ulcer with hemorrhage; N39.0 Urinary tract infection, site not specified; R13.10 Dysphagia, unspecified; M19.90 Unspecified osteoarthritis, unspecified site; G43.909 Migraine, unspecified, not intractable, without status migrainosus; G25.81 Restless legs syndrome; E87.6 Hypokalemia; B35.4 Tinea corporis; R33.9 Retention of urine, unspecified; F32.9 Major depressive disorder, single episode, unspecified; I10 Essential (primary) hypertension; F41.9 Anxiety disorder, unspecified; Z79.899 Other long term (current) drug therapy; Z86.718 Personal history of other venous thrombosis and embolism; H91.90 Unspecified hearing loss, unspecified ear; B96.1 Klebsiella pneumoniae [K. pneumoniae] as the cause of diseases classified elsewhere
CPT/HCPCS: 36415; 74018; 74230; 80048; 80076; 81001; 85025; 87077; 87086; 87088; 87186; 87426; 92507; 92523; 92526; 92610; 92611; 94640; 97110; 97116; 97162; 97166; 97530; 97535; 97802; J3030

== ENCOUNTER → 2021-04-08 06:00 | Outpatient (REF) | payer MEDICARE, BC, SELFPAY ==
[2021-04-08 08:32] LABS: Absolute Lymphocyte Count 1.27 X10^3/uL (0.83-4.51); Absolute Neutrophil Count 3.9 X10^3/uL (2.0-7.7); Basophil# 0.06 X10^3/uL; Eosinophil# 0.19 X10^3/uL; Hematocrit 33.9 % (37-47); Hemoglobin 10.5 g/dL (12.0-15.0); Lymphocyte # 1.27 X10^3/ul (0.83-4.51); Lymphocyte % 20.4 % (19-41); Mean Corpuscular Hgb 29.3 pg (27.0-32.0); Mean Corpuscular Volume 94.7 fL (81-99); Mean Platelet Vol. 9.6 fl (6.2-12.0); Monocyte# 0.75 X10^3/uL; NRBC Flagged by Analyzer 0 % (0-5); Neutrophil # 3.92 X10^3/uL (2.7-7.7); Neutrophil % 62.8 % (47-70); Platelet Count 159 K/mm3 (150-450); RBC Distribution Width CV 17.9 % (11.6-14.6); RBC Distribution Width SD 62.4 fl (35.1-43.9); Red Blood Count 3.58 M/mm3 (4.2-5.4); White Blood Count 6.2 K/mm3 (4.4-11.0)
[2021-04-08 08:43] LABS: Anion Gap 4 (5-15); BUN 34 mg/dL (7-18); Calcium,Total 9.2 mg/dL (8.5-10.1); Chloride 111 mmol/L (98-107); Creatinine, Serum 1.89 mg/dL (0.55-1.02); EST Glomerular Filtration Rate 27 mL/min (>60); Est Glom Filt Rate - Afr Amer 33 mL/min (>60); Glucose 83 mg/dL (74-106); Potassium 4.3 mmol/L (3.5-5.1); Sodium Level 143 mmol/L (136-145)
== END ==
LOC: OLS.WHLEAS 06:00
PROVIDERS: PCP Internal Medicine; Visit Provider Family Medicine
DX: Z48.815 Encounter for surgical aftercare following surgery on the digestive system (principal); K63.1 Perforation of intestine (nontraumatic); K92.2 Gastrointestinal hemorrhage, unspecified; L02.211 Cutaneous abscess of abdominal wall
CPT/HCPCS: 36415; 80048; 85025

== ENCOUNTER 2021-05-05 18:26 | Inpatient (IN) | payer MEDICARE, BC, SELFPAY ==
[2021-05-05 18:27] VITALS: BP 112/60; PULSE 80; RESP 16; TEMP 36.9; O2SAT 96; BMI 30.7
--- NOTE | 2021-05-05 19:06 | CT_ITS ---
We are attempting to reach an attending provider to discuss findings. An addendum with communication details will be sent when the communication is complete. EXAM: CT ABDOMEN AND PELVIS WITHOUT INTRAVENOUS CONTRAST CLINICAL INDICATION: abdominal pain TECHNIQUE: Helically acquired images were obtained of the abdomen and pelvis without intravenous contrast. This CT exam was performed using one or more of the following dose reduction techniques: automated exposure control, adjustment of the mA and/or kV according to patient size, and/or use of iterative reconstruction technique. This report was created using [employer] report generation technology. COMPARISON: 12.31.20 FINDINGS: LOWER THORAX: Developing left lower lobe pneumonia. There is a hiatal hernia. There are coronary arterial calcifications. No cardiomegaly. No significant pericardial effusion. ABDOMEN: LIVER: Unremarkable. Homogeneous. GALLBLADDER AND BILE DUCTS: Gallbladder is nonvisualized. No calcified gallstones. No gallbladder distention or wall edema. No intra- or extrahepatic biliary ductal dilation. PANCREAS: Unremarkable. No focal cystic mass. SPLEEN: Unremarkable. Normal size without focal cystic or solid mass. ADRENALS: Unremarkable. No nodules. KIDNEYS AND URETERS: Unremarkable. Normal renal size and position. No hydronephrosis. STOMACH AND BOWEL: There are multiple diverticuli of the colon. There is diverticulosis but no radiographic signs for diverticulitis. Small bowel inflammatory changes at the level of the anastomosis in the mid abdomen. Series 2 image 84. No stomach or bowel distention. PELVIS: APPENDIX: No evidence of acute appendicitis. BLADDER: Urinary bladder wall has wall thickening. This can be related to a partially contractile state. However, a cystitis is not excluded. Urinalysis should be performed in an effort to exclude cystitis. There is a Matos balloon catheter in the urinary bladder. REPRODUCTIVE: The uterus is not visualized and is most likely surgically absent. ABDOMEN and PELVIS: INTRAPERITONEAL SPACE: There is extraluminal air surrounding the small bowel in the midabdomen at the level of the anastomosis. This concerning for focal perforation or anastomotic leak. No ascites or other fluid collection. BONES/JOINTS: Spinal fixation hardware noted. Stabilized grade 1 anterolisthesis of L4 on L5. There is bilateral neural foraminal stenosis at L4-5. No suspicious lytic or blastic abnormality. SOFT TISSUES: Unremarkable. No discrete abdominal or pelvic wall hernia. VASCULATURE: Unremarkable. Abdominal aorta is non-dilated. LYMPH NODES: Unremarkable. No enlarged lymph nodes. CT/Abdomen/Pelvis without Cont IMPRESSION: 1. Developing left lower lobe pneumonia. 2. Urinary bladder wall has wall thickening. This can be related to a partially contractile state. However, a cystitis is not excluded. Urinalysis should be performed in an effort to exclude cystitis. 3. There is extraluminal air surrounding the small bowel in the midabdomen at the level of the anastomosis. This concerning for focal perforation or anastomotic leak. Electronically Signed: Lyle Marks MD at 20:21 EDT , Service support ,
--- NOTE | 2021-05-05 19:07 | EX.ED.DYSGE1 ---
HPI History of Present Illness Chief Complaint: Abd Pain Informant: patient and family Narrative Narrative: 85-year-old female presents to the emergency department with abdominal pain. Daughter states that she is currently at [facility]. She states that she has been complaining of her abdomen hurting for a while. Reportedly nursing called the daughter stating that her mother had a temperature of 100.5. Patient denies any cough or urinary symptoms. He was previously mostly on the right side of her abdomen but reportedly told her daughter that she hurts all over. 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 This was performed by Dr. Shrestha. [facility] Medical History Abnormal bruising Anxiety Chronic neck and back pain Difficulty balancing when standing DVT (deep venous thrombosis) Hearing loss, left Hearing loss, right Incontinence Knee pain Migraines Non-smoker On home oxygen therapy Polyosteoarthritis Polyosteoarthritis Severe headache Shoulder pain SOB (shortness of breath) Home Medications atenolol 25 mg PO BID 06/09/15 [History Last Taken 12/31/20] multivitamin with folic acid [Thera] 1 tab PO DAILY 01/29/18 [History Last Taken 01/15/21 08:10] ferrous sulfate 325 mg PO DAILY 10/19/19 [History Last Taken 01/15/21 12:00] duloxetine 60 mg PO DAILY 12/31/20 [History Last Taken 01/14/21 09:00] gabapentin 100 mg PO DAILY 12/31/20 [History Last Taken 01/15/21 08:10] gabapentin 300 mg capsule 300 mg PO QHS cap 12/31/20 [History Last Taken 01/14/21 22:00] hydroxychloroquine 200 mg tablet 200 mg PO BID tab 12/31/20 [History Last Taken 01/15/21 06:30] amlodipine 10 mg PO DAILY 01/09/21 [History Last Taken 01/15/21 09:00] sennosides-docusate sodium [Stool Softener-Stimulant Laxat] 1 tab-cap PO BID 01/09/21 [History Last Taken 01/15/21 09:00] bupropion HCl 75 mg PO BID 01/16/21 [History Last Taken 01/15/21 06:30] pramipexole [Mirapex] 0.25 mg PO QHS 01/16/21 [History Last Taken 01/14/21 21:00] furosemide 40 mg PO DAILY 01/19/21 [History Last Taken Unknown] pantoprazole 40 mg PO BID 01/19/21 [History Last Taken Unknown] acetaminophen 1,000 mg PO Q6H PRN PRN #0 tab 02/10/21 [Rx Last Taken Unknown] albuterol sulfate [Ventolin HFA] 2 puff INHALATION BID #0 g 02/10/21 [Rx Last Taken Unknown] menthol-zinc oxide [Calmoseptine] 1 applic TOPICAL TID #0 g 02/10/21 [Rx Last Taken Unknown] nystatin [Nyamyc] 1 applic TOPICAL TID #0 g 02/10/21 [Rx Last Taken Unknown] sumatriptan succinate 6 mg SUBCUT DAILY PRN #0 ml 02/10/21 [Rx Last Taken Unknown] donepezil 5 mg PO QHS 05/05/21 [History Last Taken Unknown] Allergy/AdvReac Type Severity Reaction Status Date / Time No Known Allergies Allergy Verified 05/05/21 18:31 Family History Mother No significant active problems Other Headache Surgical History History of appendectomy History of back surgery History of cholecystectomy History of foot surgery History of hernia surgery History of surgery on wrist S/P small bowel resection Small bowel perforation Social History household members: family housing: house Smoking Status: Never smoker alcohol intake: never ROS ROS ED Constitutional Constitutional ED: Reports fever(s); Denies chills or weight loss Eyes Eyes: Denies change in vision or diplopia ENT ENT ED: Denies ear pain, rhinorrhea or sore throat Cardiovascular Cardiovascular: Denies chest pain, orthopnea, palpitations or racing heartbeat Respiratory/Chest Respiratory/Chest: Denies cough, dyspnea or orthopnea Gastrointestinal Gastrointestinal: Reports abdominal pain; Denies diarrhea, nausea or vomiting Genitourinary Genitourinary ED: Denies dysuria, hematuria or urinary frequency Musculoskeletal Musculoskeletal: Denies arthralgias or myalgias Integumentary Denies abscess or rash Neurologic Neurologic: Denies headache(s) or weakness Psychiatric Psychiatric: Denies anxiety, depression, suicidal ideation or suicidal thoughts Endocrine Endocrinology: Denies polydipsia, polyphagia or polyuria Allergic/Immunologic Allergic/Immunologic ED: Denies mouth swelling, tongue swelling or urticaria EXAM Physical Exam Const Vital Signs: 05/05/21 18:27 05/05/21 20:27 Temperature 98.4 F Temperature Source Oral Pulse Rate 80 71 Respiratory Rate 16 14 Blood Pressure 112/60 114/64 Blood Pressure Mean 77 80 Pulse Ox 96 97 Oxygen Delivery Method Room Air Room Air Positive well nourished, well developed and obese General Appearance ED: well developed Nutritional Appearance: obese HEENT Reports normocephalic, head/scalp atraumatic and moist mucous membranes Eyes PERRL and EOMs intact bilaterally Neck no lymphadenopathy, supple and no JVD Resp normal respiratory effort and clear to auscultation bilaterally Cardio regular rate, regular rhythm and no murmurs GI GI Narrative: Patient notes diffuse tenderness to palpation. There is a well-healed laparotomy scar. The abdomen is soft. Normal active bowel sounds Palpation: soft Back/Spine no CVA tenderness and normal ROM Extremity normal to inspection General Extremety ED: Negative for edema General Extremity: Negative for edema Neuro oriented x3 and CN's II-XII intact bilaterally Sensorium / Orientation: alert Motor Exam: strength 5/5 throughout Psych mental status grossly normal Mood & Affect: Negative for depressed or tearful Skin no rashes or lesions noted and no wounds MDM MDM Lab Data Labs: Laboratory Results - last 24 hr 05/05/21 05/05/21 05/05/21 18:35 18:35 19:15 WBC 12.0 H RBC 3.87 L Hgb 11.5 L Hct 35.8 L MCV 92.5 MCH 29.7 MCHC 32.1 RDW Std Deviation 56.1 H RDW Coeff of Laxmi 16.5 H Plt Count 214 MPV 10.1 Immature Gran % (Auto) 0.500 Neut % (Auto) 81.6 H Lymph % (Auto) 10.4 L [place] % (Auto) 7.1 Eos % (Auto) 0.2 Baso % (Auto) 0.2 Absolute Neuts (auto) 9.8 H Absolute Lymphs (auto) 1.25 Nucleated RBC % 0 PT INR APTT Sodium 139 Potassium 4.2 Chloride 104 Carbon Dioxide 29.0 Anion Gap 6 BUN 47 H Creatinine 2.17 H Estim Creat Clear Calc 16.66 Est GFR (MDRD) Af Amer 28 L Est GFR (MDRD) Non-Af 23 L BUN/Creatinine Ratio 21.7 H Glucose 95 Lactic Acid Calcium 9.4 Total Bilirubin 0.60 AST 34 ALT 36 Alkaline Phosphatase 109 Total Protein 6.5 Albumin 2.6 L Globulin 3.9 Albumin/Globulin Ratio 0.7 L Urine Color Yellow Urine Clarity Cloudy Urine pH 6.0 Ur Specific [place] 1.010 Urine Protein 15 H Urine Glucose (UA) Normal Urine Ketones Negative Urine Occult Blood 25 H Urine Nitrite Negative Urine Bilirubin Negative Urine Urobilinogen Normal Ur Leukocyte Esterase 500 H Urine RBC 0 SEEN Urine WBC >100 SEEN Ur Squamous Epith Cells 0 SEEN Urine Bacteria 1+ Urine Mucus 0 SEEN 05/05/21 05/05/21 19:20 19:20 WBC RBC Hgb Hct MCV MCH MCHC RDW Std Deviation RDW Coeff of Laxmi Plt Count MPV Immature Gran % (Auto) Neut % (Auto) Lymph % (Auto) [place] % (Auto) Eos % (Auto) Baso % (Auto) Absolute Neuts (auto) Absolute Lymphs (auto) Nucleated RBC % PT 13.9 INR 1.1 APTT 33.1 Sodium Potassium Chloride Carbon Dioxide Anion Gap BUN Creatinine Estim Creat Clear Calc Est GFR (MDRD) Af Amer Est GFR (MDRD) Non-Af BUN/Creatinine Ratio Glucose Lactic Acid 1.0 Calcium Total Bilirubin AST ALT Alkaline Phosphatase Total Protein Albumin Globulin Albumin/Globulin Ratio Urine Color Urine Clarity Urine pH Ur Specific [place] Urine Protein Urine Glucose (UA) Urine Ketones Urine Occult Blood Urine Nitrite Urine Bilirubin Urine Urobilinogen Ur Leukocyte Esterase Urine RBC Urine WBC Ur Squamous Epith Cells Urine Bacteria Urine Mucus Radiography Diagnostic Testing: Radiology Impression Abdomen/Pelvis CT 05/05/21 19:06 IMPRESSION: 1. Developing left lower lobe pneumonia. 2. Urinary bladder wall has wall thickening. This can be related to a partially contractile state. However, a cystitis is not excluded. Urinalysis should be performed in an effort to exclude cystitis. 3. There is extraluminal air surrounding the small bowel in the midabdomen at the level of the anastomosis. This concerning for focal perforation or anastomotic leak. Electronically Signed: Lyle Marks MD at 20:21 EDT , Service support , ADDENDUM: 05/05/212037 IMPRESSION: 1. Developing left lower lobe pneumonia. 2. Urinary bladder wall has wall thickening. This can be related to a partially contractile state. However, a cystitis is not excluded. Urinalysis should be performed in an effort to exclude cystitis. 3. There is extraluminal air surrounding the small bowel in the midabdomen at the level of the anastomosis. This concerning for focal perforation or anastomotic leak. N.B. : The above Results were Read Back by Lyle Marks MD to Magen Kan MD, and understanding confirmed on 05/05/2021 20:31:44 (ET). Electronically Signed: Lyle Marks MD at 20:21 EDT , Service support , Discharge Plan Dx/Rx/DC Orders Clinical Impression: Abdominal pain, Small bowel anastomotic leak Disposition Disposition: Acute Care Hospital [facility]
[2021-05-05 19:30] LABS: Absolute Lymphocyte Count 1.25 X10^3/uL (0.83-4.51); Absolute Neutrophil Count 9.8 X10^3/uL (2.0-7.7); Basophil# 0.03 X10^3/uL; Basophil% 0.2 % (0-1); Eosinophil# 0.02 X10^3/uL; Eosinophils% 0.2 % (0-5); Hematocrit 35.8 % (37-47); Hemoglobin 11.5 g/dL (12.0-15.0); Lymphocyte # 1.25 X10^3/ul (0.83-4.51); Lymphocyte % 10.4 % (19-41); Mean Corp Hgb Conc 32.1 g/dL (32-36); Mean Corpuscular Hgb 29.7 pg (27.0-32.0); Mean Corpuscular Volume 92.5 fL (81-99); Mean Platelet Vol. 10.1 fl (6.2-12.0); Monocyte# 0.85 X10^3/uL; Monocyte% 7.1 % (0-10); NRBC Flagged by Analyzer 0 % (0-5); Neutrophil # 9.81 X10^3/uL (2.7-7.7); Neutrophil % 81.6 % (47-70); Platelet Count 214 K/mm3 (150-450); RBC Distribution Width CV 16.5 % (11.6-14.6); RBC Distribution Width SD 56.1 fl (35.1-43.9); Red Blood Count 3.87 M/mm3 (4.2-5.4)
[2021-05-05 19:39] LABS: International Normalized Ratio 1.1; Partial Thromboplast Time 33.1 Seconds (24.1-36.2); Prothrombin Time (Protime)PT. 13.9 SECONDS (11.7-14.9)
[2021-05-05 19:45] LABS: ALB/GLOB Ratio 0.7 RATIO (0.9-2.4); AST(SGOT) 34 U/L (15-37); Alanine Aminotransfer ALT/SGPT 36 U/L (13-56); Albumin, Serum 2.6 g/dL (3.2-5.0); Alkaline Phosphatase 109 U/L (45-117); Anion Gap 6 (5-15); BUN 47 mg/dL (7-18); BUN/Creat Ratio 21.7 RATIO (10-20); Calcium,Total 9.4 mg/dL (8.5-10.1); Chloride 104 mmol/L (98-107); Creatinine, Serum 2.17 mg/dL (0.55-1.02); EST Glomerular Filtration Rate 23 mL/min (>60); Est Glom Filt Rate - Afr Amer 28 mL/min (>60); Estimated Creatinine Clearance 16.66 ml/min; Globulin 3.9 g/dL (2.2-4.2); Glucose 95 mg/dL (74-106); Potassium 4.2 mmol/L (3.5-5.1); Protein, Total 6.5 g/dL (6.4-8.2); Sodium Level 139 mmol/L (136-145)
[2021-05-05 20:07] LABS: Mucous, Urine 0 SEEN /hpf (<or=2+); Red Blood Cells-Urine 0 SEEN /hpf (0-5); Squamous Epithelial Cells - UA 0 SEEN /hpf (5-10)
[2021-05-05 20:10] LABS: Color, Urine Yellow (Yellow); Glucose, Dipstick Normal (Normal); Ketone-Dipstick Negative (Negative); Leukocyte Esterase-Dipstick 500 /ul (Negative); Nitrite-Dipstick Negative (Negative); Occult Blood-Urine 25 /ul (Negative); Protein-Dipstick 15 mg/dl (Negative); Urine Bilirubin Dipstick Negative (Negative); Urine Clarity Cloudy (Clear); Urine Urobilinogen Normal (Normal)
[2021-05-05 20:26] LABS: Bacteria 1+ /hpf (None Seen); White Blood Cells >100 SEEN /hpf (0-5)
[2021-05-05 20:27] VITALS: BP 114/64; PULSE 71; RESP 14; O2SAT 97
--- NOTE | 2021-05-05 21:25 | HP.PCM.SX_ITS ---
HPI - General HPI Narrative LOLLY HUSAIN, is a 85 F who presents with 3 days of abdominal pain. The patient reports her abdominal pain is in her mid abdomen. Patient reports fevers this morning although she was afebrile in the emergency room. Patient does not report any nausea or vomiting. Patient does not report that it is gett ing any worse. [facility] Medical History Abnormal bruising Anxiety Chronic neck and back pain Difficulty balancing when standing DVT (deep venous thrombosis) Hearing loss, left Hearing loss, right Incontinence Knee pain Migraines Non-smoker On home oxygen therapy Polyosteoarthritis Polyosteoarthritis Severe headache Shoulder pain SOB (shortness of breath) Home Medications atenolol 25 mg PO BID 06/09/15 [History Last Taken 12/31/20] multivitamin with folic acid [Thera] 1 tab PO DAILY 01/29/18 [History Last Taken 01/15/21 08:10] ferrous sulfate 325 mg PO DAILY 10/19/19 [History Last Taken 01/15/21 12:00] duloxetine 60 mg PO DAILY 12/31/20 [History Last Taken 01/14/21 09:00] gabapentin 100 mg PO DAILY 12/31/20 [History Last Taken 01/15/21 08:10] gabapentin 300 mg capsule 300 mg PO QHS cap 12/31/20 [History Last Taken 01/14/21 22:00] hydroxychloroquine 200 mg tablet 200 mg PO BID tab 12/31/20 [History Last Taken 01/15/21 06:30] amlodipine 10 mg PO DAILY 01/09/21 [History Last Taken 01/15/21 09:00] sennosides-docusate sodium [Stool Softener-Stimulant Laxat] 1 tab-cap PO BID 01/09/21 [History Last Taken 01/15/21 09:00] bupropion HCl 75 mg PO BID 01/16/21 [History Last Taken 01/15/21 06:30] pramipexole [Mirapex] 0.25 mg PO QHS 01/16/21 [History Last Taken 01/14/21 21:00] furosemide 40 mg PO DAILY 01/19/21 [History Last Taken Unknown] pantoprazole 40 mg PO BID 01/19/21 [History Last Taken Unknown] acetaminophen 1,000 mg PO Q6H PRN PRN #0 tab 02/10/21 [Rx Last Taken Unknown] albuterol sulfate [Ventolin HFA] 2 puff INHALATION BID #0 g 02/10/21 [Rx Last Taken Unknown] menthol-zinc oxide [Calmoseptine] 1 applic TOPICAL TID #0 g 02/10/21 [Rx Last Taken Unknown] nystatin [Nyamyc] 1 applic TOPICAL TID #0 g 02/10/21 [Rx Last Taken Unknown] sumatriptan succinate 6 mg SUBCUT DAILY PRN #0 ml 02/10/21 [Rx Last Taken Unknown] donepezil 5 mg PO QHS 05/05/21 [History Last Taken Unknown] Allergy/AdvReac Type Severity Reaction Status Date / Time No Known Allergies Allergy Verified 05/05/21 18:31 Family History Mother No significant active problems Other Headache Surgical History History of appendectomy History of back surgery History of cholecystectomy History of foot surgery History of hernia surgery History of surgery on wrist S/P small bowel resection Small bowel perforation Social History household members: family housing: house Smoking Status: Never smoker alcohol intake: never ROS Constitutional Constitutional: Reports fever(s); Denies chills Eyes Eyes: Denies blurry vision ENT HEENT: Denies abnormal hearing Cardiovascular Cardiovascular: Denies chest pain Respiratory/Chest Respiratory/Chest: Denies cough or dyspnea Gastrointestinal Gastrointestinal: Reports abdominal pain; Denies melena, nausea or vomiting Genitourinary Genitourinary: Denies change in urinary stream Musculoskeletal Musculoskeletal: Reports difficulty walking; Denies abnormal gait Integumentary Integumentary: Denies jaundice Neurologic Neurologic: Denies abnormal gait Psychiatric Psychiatric: Denies anxiety Vital Signs Vital Signs Vital Signs: 05/05/21 18:27 Temperature 98.4 F Temperature Source Oral Pulse Rate 80 Respiratory Rate 16 Blood Pressure 112/60 Blood Pressure Mean 77 Pulse Ox 96 Oxygen Delivery Method Room Air Weight Weight: 179 lb 0.246 oz Body Mass Index (BMI) 30.7 Physical Exam Const no apparent distress Resp normal respiratory effort Cardio regular rate and regular rhythm GI soft to palpation Palpation: tender periumbilical Extremity normal to inspection Results Lab / Micro Data Result Diagrams: 05/05/21 18:35 05/05/21 18:35 Labs: Laboratory Results - last 24 hr 05/05/21 18:35: WBC 12.0 H, RBC 3.87 L, Hgb 11.5 L, Hct 35.8 L, MCV 92.5, MCH 29.7, MCHC 32.1, RDW Std Deviation 56.1 H, RDW Coeff of Laxmi 16.5 H, Plt Count 214, MPV 10.1, Immature Gran % (Auto) 0.500, Neut % (Auto) 81.6 H, Lymph % (Auto) 10.4 L, [place] % (Auto) 7.1, Eos % (Auto) 0.2, Baso % (Auto) 0.2, Absolute Neuts (auto) 9.8 H, Absolute Lymphs (auto) 1.25, Nucleated RBC % 0 05/05/21 18:35: Sodium 139, Potassium 4.2, Chloride 104, Carbon Dioxide 29.0, Anion Gap 6, BUN 47 H, Creatinine 2.17 H, Estim Creat Clear Calc 16.66, Est GFR (MDRD) Af Amer 28 L, Est GFR (MDRD) Non-Af 23 L, BUN/Creatinine Ratio 21.7 H, Glucose 95, Calcium 9.4, Total Bilirubin 0.60, AST 34, ALT 36, Alkaline Phosphatase 109, Total Protein 6.5, Albumin 2.6 L, Globulin 3.9, Albumin/Globulin Ratio 0.7 L 05/05/21 19:15: Urine Color Yellow, Urine Clarity Cloudy, Urine pH 6.0, Ur Specific [place] 1.010, Urine Protein 15 H, Urine Glucose (UA) Normal, Urine Ketones Negative, Urine Occult Blood 25 H, Urine Nitrite Negative, Urine Bilirubin Negative, Urine Urobilinogen Normal, Ur Leukocyte Esterase 500 H, U rine RBC 0 SEEN, Urine WBC >100 SEEN, Ur Squamous Epith Cells 0 SEEN, Urine Bacteria 1+, Urine Mucus 0 SEEN 05/05/21 19:20: PT 13.9, INR 1.1, APTT 33.1 05/05/21 19:20: Lactic Acid 1.0 Micro: Microbiology 05/05/21 19:40 Nasal Secretion SARS-CoV-2 Antigen (Rapid) - Final Radiology Impression Abdomen/Pelvis CT 05/05/21 19:06 IMPRESSION: 1. Developing left lower lobe pneumonia. 2. Urinary bladder wall has wall thickening. This can be related to a partially contractile state. However, a cystitis is not excluded. Urinalysis should be performed in an effort to exclude cystitis. 3. There is extraluminal air surrounding the small bowel in the midabdomen at the level of the anastomosis. This concerning for focal perforation or anastomotic leak. Electronically Signed: Lyle Marks MD at 20:21 EDT , Service support , ADDENDUM: 05/05/212037 IMPRESSION: 1. Developing left lower lobe pneumonia. 2. Urinary bladder wall has wall thickening. This can be related to a partially contractile state. However, a cystitis is not excluded. Urinalysis should be performed in an effort to exclude cystitis. 3. There is extraluminal air surrounding the small bowel in the midabdomen at the level of the anastomosis. This concerning for focal perforation or anastomotic leak. N.B. : The above Results were Read Back by Lyle Marks MD to Magen Kan MD, and understanding confirmed on 05/05/2021 20:31:44 (ET). Electronically Signed: Lyle Marks MD at 20:21 EDT , Service support , Assessment & Plan Assessment/Plan (1) Anastomotic leak of intestine: PLAN: Patient has 3-day history of abdominal pain and CT scan showed some bubbles of extraluminal air around the anastomosis with some inflammation. Patient's white count is mildly elevated and the patient appears nontoxic. She has some tenderness in that area but no guarding or rebound. Her vital signs are all stable with no tachycardia or hypotension. At this time I am unsure if she had a perforation of her bowel a few days ago when the pain started and this is improving or if this is becoming worsening. At this time I would like to admit the patient on IV antibiotics and keep her n.p.o. and observe. I discussed possibility of surgery with the patient and her daughter. They would like to avoid this if at all possible. I explained that the perforation may have been small and may have been sealed off as there is not much fluid around the area. At this time the patient does not appear toxic and I do not believe that emergency surgery is warranted. I will reassess the patient in the morning and possibly take her surgery in the morning. I explained that with her possible developing left lower lobe pneumonia and multiple comorbidities that she would be high risk and surgery during daytime hours with more staff would be optimal if it is possible. If her clinical condition worsens at all I will take her for emergency surgery. Otherwise I will wait till morning and reassess and possibly take her for laparotomy with resection of this area. Nnamdi Cooper MD Pager: [facility] [address] [place] [address], [address] [place] [address] Office:
[2021-05-05] MEDS: 0.9% Normal Saline 1,000 ML 1000 ML IV (21:28)
[2021-05-05 21:32] VITALS: BP 110/59; PULSE 72; RESP 20; TEMP 36.6; O2SAT 98
--- NOTE | 2021-05-05 22:40 | ED.RN ---
MED [facility] NOTIFIED OF DR SMALLWOOD'S REQUEST TO NOTIFY HIM OF ANY CHANGES IN VITAL SIGNS OR URINE OUTPUT.
[2021-05-05] MEDS: 0.9% Normal Saline 1,000 ML 100 ML IV (23:09)
[2021-05-05 23:14] VITALS: BP 116/44; PULSE 68; PULSE 80; RESP 16; TEMP 37.2; O2SAT 95; BMI 34.4
[2021-05-05] MEDS: Pramipexole Di-HCl 0.25 MG Tablet PO (23:25)
[2021-05-05] MEDS: Atenolol 25 MG Tablet PO (23:25)
[2021-05-05] MEDS: buPROPion 75 MG Tablet PO (23:25)
[2021-05-05 23:58] VITALS: BP 101/38; PULSE 67; O2SAT 98
[2021-05-06] VITALS (19 sets, daily range): BP systolic 104–132; BP diastolic 44–95; PULSE 66–83; RESP 16; TEMP 36.1–37.2; O2SAT 91–100; BMI 34.4
[2021-05-06] MEDS: Morphine 2 MG/ML Syringe IV ×5 (03:33→19:46)
[2021-05-06] MEDS: Albuterol 2.5 MG/3 ML VIAL.NEB. INHALATION ×2 (06:56→18:48)
[2021-05-06 07:27] LABS: Absolute Lymphocyte Count 0.98 X10^3/uL (0.83-4.51); Absolute Neutrophil Count 4.5 X10^3/uL (2.0-7.7); Basophil# 0.02 X10^3/uL; Basophil% 0.3 % (0-1); Eosinophil# 0.09 X10^3/uL; Eosinophils% 1.4 % (0-5); Hematocrit 31.6 % (37-47); Hemoglobin 9.8 g/dL (12.0-15.0); Lymphocyte # 0.98 X10^3/ul (0.83-4.51); Lymphocyte % 15.7 % (19-41); Mean Corpuscular Hgb 29.5 pg (27.0-32.0); Mean Corpuscular Volume 95.2 fL (81-99); Mean Platelet Vol. 9.8 fl (6.2-12.0); Monocyte# 0.62 X10^3/uL; Monocyte% 9.9 % (0-10); NRBC Flagged by Analyzer 0 % (0-5); Neutrophil # 4.51 X10^3/uL (2.7-7.7); Neutrophil % 72.2 % (47-70); Platelet Count 158 K/mm3 (150-450); RBC Distribution Width CV 16.4 % (11.6-14.6); RBC Distribution Width SD 57.7 fl (35.1-43.9); Red Blood Count 3.32 M/mm3 (4.2-5.4); White Blood Count 6.3 K/mm3 (4.4-11.0)
--- NOTE | 2021-05-06 07:35 | NURSING ---
Per Dr. Cooper's request, I contacted the pt's daughter, Candi Torres, and advised her that Dr. Cooper would be taking the pt to surgery at 1100 and that he would talk to her beforehand. Daughter will try to be here around 0900 so that some paperwork can be done.
--- NOTE | 2021-05-06 07:41 | PN.SURG_ITS ---
Subjective Subjective Patient reports no changes overnight Objective Data Objective Data Vital Signs: Vital Signs Temp Pulse Resp BP Pulse Ox 98.4 F 72 16 107/44 L 93 05/06/21 03:15 05/06/21 06:56 05/06/21 06:56 05/06/21 03:15 05/06/21 06:56 Oxygen Delivery Method Room Air Weight: 173 lb 11.588 oz Body Mass Index (BMI) 34.4 Intake & Output: Intake and Output for Last 24 Hours 05/04/21 05/05/21 05/06/21 23:59 23:59 23:59 Intake Total 1100 / 1100 Output Total 400 / 400 Balance 1100 / 900 -400 / -400 Lab / Micro Data Result Diagrams: 05/06/21 06:20 05/05/21 18:35 Labs: Laboratory Results - last 24 hr 05/05/21 18:35: WBC 12.0 H, RBC 3.87 L, Hgb 11.5 L, Hct 35.8 L, MCV 92.5, MCH 29.7, MCHC 32.1, RDW Std Deviation 56.1 H, RDW Coeff of Laxmi 16.5 H, Plt Count 214, MPV 10.1, Immature Gran % (Auto) 0.500, Neut % (Auto) 81.6 H, Lymph % (Auto) 10.4 L, [place] % (Auto) 7.1, Eos % (Auto) 0.2, Baso % (Auto) 0.2, Absolute Neuts (auto) 9.8 H, Absolute Lymphs (auto) 1.25, Nucleated RBC % 0 05/05/21 18:35: Sodium 139, Potassium 4.2, Chloride 104, Carbon Dioxide 29.0, Anion Gap 6, BUN 47 H, Creatinine 2.17 H, Estim Creat Clear Calc 16.66, Est GFR (MDRD) Af Amer 28 L, Est GFR (MDRD) Non-Af 23 L, BUN/Creatinine Ratio 21.7 H, Glucose 95, Calcium 9.4, Total Bilirubin 0.60, AST 34, ALT 36, Alkaline Phospha tase 109, Total Protein 6.5, Albumin 2.6 L, Globulin 3.9, Albumin/Globulin Ratio 0.7 L 05/05/21 19:15: Urine Color Yellow, Urine Clarity Cloudy, Urine pH 6.0, Ur Specific [place] 1.010, Urine Protein 15 H, Urine Glucose (UA) Normal, Urine Ketones Negative, Urine Occult Blood 25 H, Urine Nitrite Negative, Urine Bilirubin Negative, Urine Urobilinogen Normal, Ur Leukocyte Esterase 500 H, Urine RBC 0 SEEN, Urine WBC >100 SEEN, Ur Squamous Epith Cells 0 SEEN, Urine Bacteria 1+, Urine Mucus 0 SEEN 05/05/21 19:20: PT 13.9, INR 1.1, APTT 33.1 05/05/21 19:20: Lactic Acid 1.0 05/06/21 06:20: WBC 6.3, RBC 3.32 L, Hgb 9.8 L, Hct 31.6 L, MCV 95.2, MCH 29.5, MCHC 31.0 L, RDW Std Deviation 57.7 H, RDW Coeff of Laxmi 16.4 H, Plt Count 158, MPV 9.8, Immature Gran % (Auto) 0.500, Neut % (Auto) 72.2 H, Lymph % (Auto) 15.7 L, [place] % (Auto) 9.9, Eos % (Auto) 1.4, Baso % (Auto) 0.3, Absolute Neuts (auto) 4.5, Absolute Lymphs (auto) 0.98, Nucleated RBC % 0 Micro: Microbiology 05/05/21 19:40 Nasal Secretion SARS-CoV-2 Antigen (Rapid) - Final Radiography Diagnostic Testing: Radiology Impression Abdomen/Pelvis CT 05/05/21 19:06 IMPRESSION: 1. Developing left lower lobe pneumonia. 2. Urinary bladder wall has wall thickening. This can be related to a partially contractile state. However, a cystitis is not excluded. Urinalysis should be performed in an effort to exclude cystitis. 3. There is extraluminal air surrounding the small bowel in the midabdomen at the level of the anastomosis. This concerning for focal perforation or anastomotic leak. Electronically Signed: Lyle Marks MD at 20:21 EDT , Service support , ADDENDUM: 05/05/212037 IMPRESSION: 1. Developing left lower lobe pneumonia. 2. Urinary bladder wall has wall thickening. This can be related to a partially contractile state. However, a cystitis is not excluded. Urinalysis should be performed in an effort to exclude cystitis. 3. There is extraluminal air surrounding the small bowel in the midabdomen at the level of the anastomosis. This concerning for focal perforation or anastomotic leak. N.B. : The above Results were Read Back by Lyle Marks MD to Magen Kan MD, and understanding confirmed on 05/05/2021 20:31:44 (ET). Electronically Signed: Lyle Marks MD at 20:21 EDT , Service support , Physical Exam Const oriented x3 and no apparent distress Resp normal respiratory effort Cardio regular rate and regular rhythm GI soft to palpation Palpation: tender Assessment & Plan Assessment/Plan (1) Small bowel anastomotic leak: PLAN: Patient reports no changes overnight. Her hemodynamics were stable. The patient is still very tender at the area just above the incision. I will plan for exploration of this area this morning and surgery. I discussed this with the patient and I will discussed with the patient's daughter as well. I discussed the risks of bleeding, infection, injury to bowel or underlying organs, need for bowel resection, nonhealing of incision. Patient understands the risks and is willing to proceed with surgery. Nnamdi Cooper MD Pager: [facility] [address] [place] [address], [address] [place] [address] Office:
[2021-05-06 07:52] LABS: Anion Gap 7 (5-15); BUN 45 mg/dL (7-18); BUN/Creat Ratio 22.5 RATIO (10-20); Calcium,Total 8.6 mg/dL (8.5-10.1); Chloride 108 mmol/L (98-107); EST Glomerular Filtration Rate 25 mL/min (>60); Est Glom Filt Rate - Afr Amer 31 mL/min (>60); Estimated Creatinine Clearance 26.05 ml/min; Glucose 72 mg/dL (74-106); Potassium 4.1 mmol/L (3.5-5.1); Sodium Level 142 mmol/L (136-145)
[2021-05-06] MEDS: 0.9% Normal Saline 1,000 ML 100 ML IV ×2 (08:49→14:39)
[2021-05-06] MEDS: Atenolol 25 MG Tablet PO ×2 (08:55→22:15)
--- NOTE | 2021-05-06 08:56 | CASEMGMT ---
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 Original Note: Social Work Note SW reviewed chart. Pt is from [facility]. SW in to speak with pt and pt's daughter Candi present in room. AIDA introduced self and role at [facility]. Candi confirms pt cam from [facility], plan is to return while she finalizes getting pt home. Candi states she is taking pt home next month, just waiting on a hospital bed to be delivered to her home. Candi states the last time pt had abdominal surgery pt went to [facility] on their skilled side, so she is not sure if [facility] will want pt to return skilled again or not. AIDA informed Candi that this worker will check with [facility] and send them updates and then [facility] will let us know if they want pt to return skilled. Candi states understanding. AIDA placed a call to Abena at [facility] and left message. AIDA faxed updated clinicals to [facility]. Plan: Return to [facility] when medically cleared Kymberly Nunez COURT RECORDING MONITOR, POLISHING PAD [employer]OUNTER
--- NOTE | 2021-05-06 09:16 | EKG12_ITS ---
Test Reason : PRE-OP Blood Pressure : / mmHG Vent. Rate : 068 BPM Atrial Rate : 068 BPM P-R Int : 200 ms QRS Dur : 092 ms QT Int : 430 ms P-R-T Axes : 042 -36 009 degrees QTc Int : 457 ms Normal sinus rhythm Left axis deviation Anterolateral infarct , age undetermined, cannot be excluded Abnormal ECG Confirmed by ALIRIO MONTANEZ, DANYELLE ([id number]), order editor HOLLY FLOR ([id number]) on 05/10/2021 7:27:45 AM Referred By: CL Confirmed By:DANYELLE AMEZQUITA MD
--- NOTE | 2021-05-06 11:00 | COL_PTH ---
PATIENT: LOLLY HUSAIN LOC: MS3 U#:[id number] AGE/SX: 85/F ROOM: [facility] [place]06/[address]: Dr. Nnamdi Cooper MD : [id number] BED: 1 DIS: 05/10/2021 SPEC #: [id number] RECD: 05/06/21 12:59 STATUS: KETURAH RENegrito #: [id number] OMER: 05/06/21 11:[address]: Nnamdi Cooper DEPT: SURGICAL PATHOLOGY RECD BY: Kallie Willard ENTERED: 05/06/21 13:43 SP TYPE: COLON OTHR DR: Dr. Candice Amado, DO Tissues: Small intestine mucous membrane Procedures: Surgery Specimen Level V HEADER OPERATION: Exploratory laparotomy with resection of small bowel anastomosis PRE-OP DIAGNOSIS: Small bowel anastomotic leak TISSUE SUBMITTED: Small bowel anastomosis MICROSCOPIC DIAGNOSIS Small bowel anastomosis, resection of small bowel anastomosis: Small bowel anastomosis with focal area of bloody cystic lesion with hemorrhage in mesenteric tissue consistent with anastomosis leak. Focal anastomotic area with ulceration, mucosal congestion and hemorrhage. Serosal surface with focal congestion, hemorrhage, chronic inflammation and reactive changes. LEIGHTON:arthur 05/10/2021 COMMENT Case has been reviewed in consultation with Dr. Meneses who concurs with the above diagnosis. IDC:ANIA MICROSCOPIC DESCRIPTION Slides are reviewed. GROSS DESCRIPTION Received in fixative is one container labeled with the patient's name and designated small bowel anastomosis. The specimen consists of two segments of bowel with [id number]-mk-soxv anastomosis. The larger segment measures 15 cm in length and the smaller measures 10 cm in length. The hwpq-um-eero anastomotic area is slightly hemorrhagic but appears intact. Both fragments of bowel are surrounded by fibrofatty tissue. No gross perforations are seen. The specimen is left for additional fixation. Also present free in the bowel is an elongated fragment of glistening sandoval mucosa with attached soft tissue measuring 7 x 2 x 1.5 cm. No mucosal lesions of this fragment are identified. / AM:arthur 05/06/21 No mucosal mass lesions are identified in either segment. The attached fibrofatty tissue adjacent to the anastomosis contains a blood-filled cyst measuring 3 cm in greatest dimension. Technical Account Representative sections are submitted as follows: 1 - mucosal margins from smaller segment of bowel, 2 - mucosal margins from larger segment of bowel, 3 & 4 - anastomotic site, 5 & 6 - bloody cystic lesion adjacent to anastomosis, 7??customer engagement representative sections of larger uninvolved bowel, 8 - customer engagement representative sections of smaller uninvolved segment of bowel. / AM:arthur 05/07/21 TC:5 CPT: 02930
[2021-05-06] MEDS: Lactated Ringers 1,000 ML 100 ML IV (12:30)
--- NOTE | 2021-05-06 12:48 | PCM.OPRPT ---
Problems Associated Problem List Diagnoses (1) Small bowel anastomotic leak: Report of Operation Date of Procedure: 05/06/21 Pre-Operative Diagnosis: Small bowel anastomotic leak Post-Operative Diagnosis: Same Surgery/Procedure Performed:: Exploratory laparotomy with resection of prior small bowel anastomosis and repeat small bowel anastomosis Specimen's removed: Anastomosis Description of Procedure: Patient was brought back to the operating room and general anesthesia was induced. The abdomen was prepped and draped in usual sterile fashion. A midline incision was made superior to the prior incision and deepened to the fascia which was elevated and incised. Finger sweep was performed to clear an area inferior to this to the fascia may be opened further. Using combination of sharp and blunt dissection the small bowel was freed from its adhesions to the anterior abdominal wall. There appeared to be a small leak at the corner of the staple line from the prior anastomosis. After and of the small bowel was freed proximal and distal to the prior anastomosis was stapled and divided using JUAN A stapler. LigaSure impact was used to remove the segment. There is good hemostasis. Next using JUAN A stapler a new anastomosis was performed from small bowel to small bowel. The stapler was removed and the staple line appeared hemostatic. TX 60 was used to close the enterostomy. A crotch suture was placed using 3-0 silk. There is no bleeding or signs of leak. The small bowel was returned to the abdomen and the abdomen was irrigated with several liters of fluid. The abdomen was suctioned dry. The omentum was draped over the bowel and the fascia was closed with interrupted [id number] #1 Prolene sutures. The subcutaneous tissue was irrigated and the skin was stapled. Dressing was applied. Patient was taken to PACU in stable condition and tolerated the procedure well. Admit VTE Documentation VTE Mechan Device Prophylaxis: SCD's
[2021-05-06] MEDS: buPROPion 75 MG Tablet PO ×2 (14:40→22:15)
[2021-05-06] MEDS: DULoxetine Hcl 60 MG Capsule PO (14:40)
[2021-05-06] MEDS: Furosemide 40 MG Tablet PO (14:40)
[2021-05-06] MEDS: amLODIPine 10 MG Tablet PO (14:40)
--- NOTE | 2021-05-06 15:01 | CHAPLAIN ---
Type of Pastoral Visit ___ Initial Visit ___ Follow-up Visit ___ On-call Visit ___ General Patient Visit ___ Spiritual Assessment ___ Family Conference ___ Bereavement ___ Rapid Response ___ Code Blue ___ Other (describe below) Pastoral Care Referral From ___ Patient ___ Family ___ Nurse ___ Physician ___ Publication Specialist ___ Picker Tender Helper ___ Other (describe below) Sacrament/Intervention ___ Active listening ___ Anointing ___ Shinto ___ Bereavement ___ Communion ___ Krysten exploration ___ ___ Life review ___ Prayer ___ Reconciliation ___ Sacrament of Sick ___ Supportive presence ___ Wedding ___ Other (describe below) Pastoral Comments patient and bed are not in the room; a calling card was left
[2021-05-06] MEDS: Pramipexole Di-HCl 0.25 MG Tablet PO (22:15)
[2021-05-06] MEDS: Donepezil HCl 5 MG Tablet PO (22:15)
[2021-05-07] VITALS (12 sets, daily range): BP systolic 97–127; BP diastolic 54–66; PULSE 63–87; RESP 12–20; TEMP 36.3–37.2; O2SAT 91–97
[2021-05-07] MEDS: 0.9% Normal Saline 1,000 ML 100 ML IV (01:06)
[2021-05-07] MEDS: Morphine 2 MG/ML Syringe IV ×2 (04:42→13:26)
--- NOTE | 2021-05-07 05:06 | PCM.PN.SRG ---
Subjective Subjective Patient did well overnight with no issues Objective Data Objective Data Vital Signs: Vital Signs Temp Pulse Resp BP Pulse Ox 98.6 F 70 18 120/54 L 93 05/07/21 04:23 05/07/21 04:23 05/07/21 04:23 05/07/21 04:23 05/07/21 04:23 Oxygen Flow Rate (L/min) 2 Oxygen Delivery Method Room Air Weight: 173 lb 11.588 oz Body Mass Index (BMI) 34.4 Intake & Output: Intake and Output for Last 24 Hours 05/05/21 05/06/21 05/07/21 23:59 23:59 23:59 Intake Total 1100 / 1100 2436.67 / 2586.67 1200 / 1200 Output Total 1000 / 1700 1200 / 1200 Balance 1100 / 900 1436.67 / 886.67 0 / 0 Lab / Micro Data Result Diagrams: 05/06/21 06:20 05/06/21 06:20 Labs: Laboratory Results - last 24 hr 05/06/21 06:20: WBC 6.3, RBC 3.32 L, Hgb 9.8 L, Hct 31.6 L, MCV 95.2, MCH 29.5, MCHC 31.0 L, RDW Std Deviation 57.7 H, RDW Coeff of Laxmi 16.4 H, Plt Count 158, MPV 9.8, Immature Gran % (Auto) 0.500, Neut % (Auto) 72.2 H, Lymph % (Auto) 15.7 L, [place] % (Auto) 9.9, Eos % (Auto) 1.4, Baso % (Auto) 0.3, Absolute Neuts (auto) 4.5, Absolute Lymphs (auto) 0.98, Nucleated RBC % 0 05/06/21 06:20: Sodium 142, Potassium 4.1, Chloride 108 H, Carbon Dioxide 27.0, Anion Gap 7, BUN 45 H, Creatinine 2.00 H, Estim Creat Clear Calc 26.05, Est GFR (MDRD) Af Amer 31 L, Est GFR (MDRD) Non-Af 25 L, BUN/Creatinine Ratio 22.5 H, Glucose 72 L, Calcium 8.6 Micro: Microbiology 05/05/21 19:40 Nasal Secretion SARS-CoV-2 Antigen (Rapid) - Final Physical Exam Const oriented x3 and no apparent distress Resp normal respiratory effort Cardio regular rate GI soft to palpation Palpation: tender Assessment & Plan Assessment/Plan (1) Small bowel anastomotic leak: PLAN: Patient seems to be doing well after small bowel resection. She is having a lot of urine output and I will decrease her IV fluids. I will also remove her Matos. I will follow up with her this afternoon and possibly start clear liquids. Continue antibiotics for 24 hours. Nnamdi Cooper MD Pager: [facility] [place] [facility] [address] [place] [address], [address] [place] [address] Office:
[2021-05-07 05:58] LABS: Absolute Lymphocyte Count 0.53 X10^3/uL (0.83-4.51); Absolute Neutrophil Count 10.8 X10^3/uL (2.0-7.7); Basophil# 0.01 X10^3/uL; Basophil% 0.1 % (0-1); Hematocrit 31.3 % (37-47); Hemoglobin 9.9 g/dL (12.0-15.0); Lymphocyte # 0.53 X10^3/ul (0.83-4.51); Lymphocyte % 4.3 % (19-41); Mean Corp Hgb Conc 31.6 g/dL (32-36); Mean Corpuscular Hgb 29.8 pg (27.0-32.0); Mean Corpuscular Volume 94.3 fL (81-99); Mean Platelet Vol. 9.8 fl (6.2-12.0); Monocyte# 0.91 X10^3/uL; Monocyte% 7.4 % (0-10); NRBC Flagged by Analyzer 0 % (0-5); Neutrophil # 10.75 X10^3/uL (2.7-7.7); Neutrophil % 87.7 % (47-70); POSITIVE DIFFERENTIAL YES; Platelet Count 179 K/mm3 (150-450); RBC Distribution Width CV 16.4 % (11.6-14.6); RBC Distribution Width SD 56.5 fl (35.1-43.9); Red Blood Count 3.32 M/mm3 (4.2-5.4); White Blood Count 12.3 K/mm3 (4.4-11.0)
[2021-05-07 06:04] LABS: Differential Indicated SCAN CRITERIA MET
[2021-05-07 06:27] LABS: Anion Gap 7 (5-15); BUN 45 mg/dL (7-18); BUN/Creat Ratio 21.7 RATIO (10-20); Calcium,Total 8.6 mg/dL (8.5-10.1); Chloride 114 mmol/L (98-107); Creatinine, Serum 2.07 mg/dL (0.55-1.02); EST Glomerular Filtration Rate 24 mL/min (>60); Est Glom Filt Rate - Afr Amer 29 mL/min (>60); Estimated Creatinine Clearance 25.17 ml/min; Glucose 102 mg/dL (74-106); Potassium 4.2 mmol/L (3.5-5.1); Sodium Level 145 mmol/L (136-145)
[2021-05-07 06:34] LABS: Differential Comment SCANNED
[2021-05-07] MEDS: Albuterol 2.5 MG/3 ML VIAL.NEB. INHALATION ×2 (07:23→19:09)
--- NOTE | 2021-05-07 09:19 | CASEMGMT ---
Addendum entered by Kymberly Nunez 05/07/21 15:47: AIDA received call from Abena at [facility] stating pt can discharge to [facility] MONDAY OR MONDAY. AIDA updated Green sheet. Plan: Return to [facility] MONDAY OR MONDAY, whenever pt is medically ready. Pt will need COVID test on day of discharge Addendum entered by Kymberly Nunez 05/07/21 15:27: AIDA received call from Abena at [facility] requesting pt discharge back to [facility] MONDAY. SW faxed clinicals to [facility]. AIDA updated Green sheet that pt can only discharge back to [facility] Monday. Plan: Return to [facility] skilled Monday *Pt will need COVID test on day of discharge Addendum entered by Kymberly Nunez 05/07/21 09:46: AIDA placed Green sheet, transport form, COVID tool on pt's chart. Pt will need COVID test on day of discharge. Original Note: Social Work Note AIDA placed a call to Abena at [facility] and provided update. Pt could discharge back to [facility] over the weekend. AIDA to fax clinicals/PT/OT to [facility]. Plan: Return to [facility] skilled when medically cleared Kymberly Nunez FURNITURE SALES CONSULTANT, RENTAL COUNTER CLERK
[2021-05-07] MEDS: buPROPion 75 MG Tablet PO ×2 (09:40→21:01)
[2021-05-07] MEDS: Furosemide 40 MG Tablet PO (09:40)
[2021-05-07] MEDS: amLODIPine 10 MG Tablet PO (09:40)
[2021-05-07] MEDS: Atenolol 25 MG Tablet PO (09:41)
[2021-05-07] MEDS: DULoxetine Hcl 60 MG Capsule PO (09:42)
[2021-05-07] MEDS: Ondansetron 4 MG/2 ML Vial IV (13:26)
[2021-05-07] MEDS: Acetaminophen 325 MG Tablet 650 MG PO (16:58)
--- NOTE | 2021-05-07 16:59 | PCS.PANDOC ---
PANDEMIC DOCUMENTATION INITIATED: Date: 03/22/2021 Time: 190
--- NOTE | 2021-05-07 17:06 | NURSING ---
1400 and 1500 vitals done at 1100 and 1500 respectively
[2021-05-07] MEDS: Pantoprazole Sodium 20 MG Tablet PO (21:01)
[2021-05-07] MEDS: Pramipexole Di-HCl 0.25 MG Tablet PO (21:01)
[2021-05-07] MEDS: Donepezil HCl 5 MG Tablet PO (21:01)
[2021-05-07] MEDS: Menthol/Lanolin/Calamine/Znox 113 GM Tube 1 APPLIC TOPICAL (21:01)
[2021-05-08] VITALS (13 sets, daily range): BP systolic 111–121; BP diastolic 45–92; PULSE 67–77; RESP 16–20; TEMP 36.4–37.1; O2SAT 95–99
[2021-05-08] MEDS: Acetaminophen 325 MG Tablet 650 MG PO ×3 (03:34→18:22)
[2021-05-08 06:35] LABS: Absolute Lymphocyte Count 0.63 X10^3/uL (0.83-4.51); Absolute Neutrophil Count 5.3 X10^3/uL (2.0-7.7); Basophil# 0.02 X10^3/uL; Basophil% 0.3 % (0-1); Eosinophil# 0.04 X10^3/uL; Eosinophils% 0.6 % (0-5); Hemoglobin 9.3 g/dL (12.0-15.0); Lymphocyte # 0.63 X10^3/ul (0.83-4.51); Lymphocyte % 9.3 % (19-41); Mean Corpuscular Hgb 29.4 pg (27.0-32.0); Mean Corpuscular Volume 94.9 fL (81-99); Mean Platelet Vol. 9.9 fl (6.2-12.0); Monocyte# 0.73 X10^3/uL; Monocyte% 10.7 % (0-10); NRBC Flagged by Analyzer 0 % (0-5); Neutrophil # 5.34 X10^3/uL (2.7-7.7); Neutrophil % 78.5 % (47-70); Platelet Count 173 K/mm3 (150-450); RBC Distribution Width CV 16.4 % (11.6-14.6); RBC Distribution Width SD 57.5 fl (35.1-43.9); Red Blood Count 3.16 M/mm3 (4.2-5.4); White Blood Count 6.8 K/mm3 (4.4-11.0)
[2021-05-08 06:50] LABS: Anion Gap 8 (5-15); BUN 49 mg/dL (7-18); Chloride 111 mmol/L (98-107); Creatinine, Serum 2.23 mg/dL (0.55-1.02); EST Glomerular Filtration Rate 22 mL/min (>60); Est Glom Filt Rate - Afr Amer 27 mL/min (>60); Estimated Creatinine Clearance 23.36 ml/min; Glucose 95 mg/dL (74-106); Potassium 3.7 mmol/L (3.5-5.1); Sodium Level 143 mmol/L (136-145)
[2021-05-08] MEDS: Albuterol 2.5 MG/3 ML VIAL.NEB. INHALATION ×3 (06:58→18:35)
[2021-05-08] MEDS: Atenolol 25 MG Tablet PO ×2 (09:31→21:55)
[2021-05-08] MEDS: Pantoprazole Sodium 20 MG Tablet PO ×2 (09:31→21:54)
[2021-05-08] MEDS: Furosemide 40 MG Tablet PO (09:31)
[2021-05-08] MEDS: DULoxetine Hcl 60 MG Capsule PO (09:31)
[2021-05-08] MEDS: buPROPion 75 MG Tablet PO ×2 (09:31→21:55)
[2021-05-08] MEDS: amLODIPine 10 MG Tablet PO (09:31)
[2021-05-08] MEDS: Menthol/Lanolin/Calamine/Znox 113 GM Tube 1 APPLIC TOPICAL ×2 (09:33→21:54)
--- NOTE | 2021-05-08 10:17 | PN.SURG_ITS ---
Subjective Subjective patient feels ok, having small amounts of flatus, not really ambulating well feels bloated, feels overall weak Objective Data Objective Data Vital Signs: Vital Signs Temp Pulse Resp BP Pulse Ox 98.3 F 73 16 111/56 L 95 05/08/21 07:53 05/08/21 07:53 05/08/21 07:53 05/08/21 07:53 05/08/21 07:53 Oxygen Flow Rate (L/min) 2 Oxygen Delivery Method Room Air Weight: 78.8 kg Body Mass Index (BMI) 34.4 Intake & Output: Intake and Output for Last 24 Hours 05/06/21 05/07/21 05/08/21 23:59 23:59 23:59 Intake Total 2436.67 / 2586.67 3940.00 / 3940.00 250 / 250 Output Total 1000 / 1700 1950 / 1950 Balance 1436.67 / 886.67 1989.00 / 1989.00 250 / 250 Lab / Micro Data Result Diagrams: 05/08/21 05:55 05/08/21 05:55 Labs: Laboratory Results - last 24 hr 05/08/21 05:55: WBC 6.8, RBC 3.16 L, Hgb 9.3 L, Hct 30.0 L, MCV 94.9, MCH 29.4, MCHC 31.0 L, RDW Std Deviation 57.5 H, RDW Coeff of Laxmi 16.4 H, Plt Count 173, MPV 9.9, Immature Gran % (Auto) 0.600, Neut % (Auto) 78.5 H, Lymph % (Auto) 9.3 L, [place] % (Auto) 10.7 H, Eos % (Auto) 0.6, Baso % (Auto) 0.3, Absolute Neuts (auto) 5.3, Absolute Lymphs (auto) 0.63 L, Nucleated RBC % 0 05/08/21 05:55: Sodium 143, Potassium 3.7, Chloride 111 H, Carbon Dioxide 24.0, Anion Gap 8, BUN 49 H, Creatinine 2.23 H, Estim Creat Clear Calc 23.36, Est GFR (MDRD) Af Amer 27 L, Est GFR (MDRD) Non-Af 22 L, BUN/Creatinine Ratio 22.0 H, Glucose 95, Calcium 9.0 Micro: Microbiology 05/05/21 19:40 Nasal Secretion SARS-CoV-2 Antigen (Rapid) - Final Physical Exam Const alert and oriented x3 General Appearance: cooperative Resp normal respiratory effort GI GI Narrative: Abdomen - soft and obese, appropriate incisional tenderness Surgical dressing - intact - no seepage noted Assessment & Plan Assessment/Plan (1) S/P small bowel resection: PLAN: Patient has minimal discomfort She is passing flatus - small amounts, however, she still feels bloated - will continue on clear liquids incentive spirometry and ambulation encouraged
[2021-05-08] MEDS: Donepezil HCl 5 MG Tablet PO (21:54)
[2021-05-08] MEDS: Pramipexole Di-HCl 0.25 MG Tablet PO (21:54)
[2021-05-09] VITALS (11 sets, daily range): BP systolic 115–140; BP diastolic 51–56; PULSE 66–74; RESP 15–20; TEMP 36.5–37.1; O2SAT 94–99
[2021-05-09] MEDS: Acetaminophen 325 MG Tablet 650 MG PO ×2 (03:25→09:51)
[2021-05-09] MEDS: Albuterol 2.5 MG/3 ML VIAL.NEB. INHALATION ×3 (06:52→18:35)
[2021-05-09] MEDS: buPROPion 75 MG Tablet PO ×2 (08:05→22:33)
[2021-05-09] MEDS: Pantoprazole Sodium 20 MG Tablet PO ×2 (08:05→22:33)
[2021-05-09] MEDS: Atenolol 25 MG Tablet PO ×2 (08:05→22:33)
[2021-05-09] MEDS: DULoxetine Hcl 60 MG Capsule PO (08:05)
[2021-05-09] MEDS: Furosemide 40 MG Tablet PO (08:06)
[2021-05-09] MEDS: amLODIPine 10 MG Tablet PO (08:06)
[2021-05-09] MEDS: Menthol/Lanolin/Calamine/Znox 113 GM Tube 1 APPLIC TOPICAL ×2 (08:06→22:34)
--- NOTE | 2021-05-09 12:17 | NURSING ---
notified KADY that pt will not be DC back today
--- NOTE | 2021-05-09 12:51 | PCM.PN.SRG ---
Subjective Subjective Patient has passed flatus and has had bowel movements however, she still complains of 8 out 10 abdominal pain has been ambulating somewhat Objective Data Objective Data Vital Signs: Vital Signs Temp Pulse Resp BP Pulse Ox 98.0 F 72 18 140/55 H 97 05/09/21 08:09 05/09/21 08:09 05/09/21 08:09 05/09/21 08:09 05/09/21 08:09 Oxygen Flow Rate (L/min) 2 Oxygen Delivery Method Room Air Weight: 78.8 kg Body Mass Index (BMI) 34.4 Intake & Output: Intake and Output for Last 24 Hours 05/07/21 05/08/21 05/09/21 23:59 23:59 23:59 Intake Total 3940.00 / 3940.00 1250 / 1250 550 / 550 Output Total 1950 / 1950 150 / 150 Balance 1989. / 1989. 1100 / 1100 550 / 550 Lab / Micro Data Result Diagrams: 05/08/21 05:55 05/08/21 05:55 Micro: Microbiology 05/05/21 20:55 Blood Culture (Wb) - Anticubital Left Blood Culture - Preliminary No growth in 48 hours. 05/05/21 21:00 Blood Culture (Wb) - Anticubital Right Blood Culture - Preliminary No growth in 48 hours. 05/05/21 19:40 Nasal Secretion SARS-CoV-2 Antigen (Rapid) - Final Physical Exam Const alert and oriented x3 General Appearance: cooperative Resp normal respiratory effort GI GI Narrative: Abdomen is soft and obese Surgical dressing is intact - no seepage Assessment & Plan Assessment/Plan (1) S/P small bowel resection: PLAN: continue present therapy, given that patient is complaining of 8 out of 10 abdominal pain, will not make any changes in diet this can be addressed by the patient's primary surgeon encouraged ambulation and incentive spirometry
[2021-05-09] MEDS: Lidocaine 5% Patch 1 PATCH TOPICAL (15:15)
[2021-05-09] MEDS: Pramipexole Di-HCl 0.25 MG Tablet PO (22:33)
[2021-05-09] MEDS: Donepezil HCl 5 MG Tablet PO (22:34)
[2021-05-10] VITALS (7 sets, daily range): BP systolic 102–132; BP diastolic 49–61; PULSE 61–71; RESP 15–18; TEMP 36.7–36.8; O2SAT 91–100
[2021-05-10] MEDS: Acetaminophen 325 MG Tablet 650 MG PO ×2 (03:26→10:14)
[2021-05-10] MEDS: Albuterol 2.5 MG/3 ML VIAL.NEB. INHALATION (07:36)
[2021-05-10 08:33] LABS: Absolute Lymphocyte Count 0.93 X10^3/uL (0.83-4.51); Absolute Neutrophil Count 4.6 X10^3/uL (2.0-7.7); Basophil# 0.02 X10^3/uL; Basophil% 0.3 % (0-1); Eosinophil# 0.09 X10^3/uL; Eosinophils% 1.4 % (0-5); Hematocrit 31.8 % (37-47); Hemoglobin 10.2 g/dL (12.0-15.0); Lymphocyte # 0.93 X10^3/ul (0.83-4.51); Lymphocyte % 14.9 % (19-41); Mean Corp Hgb Conc 32.1 g/dL (32-36); Mean Corpuscular Hgb 29.7 pg (27.0-32.0); Mean Corpuscular Volume 92.4 fL (81-99); Mean Platelet Vol. 9.6 fl (6.2-12.0); Monocyte# 0.55 X10^3/uL; Monocyte% 8.8 % (0-10); NRBC Flagged by Analyzer 0 % (0-5); Neutrophil # 4.61 X10^3/uL (2.7-7.7); Neutrophil % 74.1 % (47-70); Platelet Count 205 K/mm3 (150-450); RBC Distribution Width CV 15.7 % (11.6-14.6); RBC Distribution Width SD 53.3 fl (35.1-43.9); Red Blood Count 3.44 M/mm3 (4.2-5.4); White Blood Count 6.2 K/mm3 (4.4-11.0)
[2021-05-10 08:43] LABS: Anion Gap 6 (5-15); BUN 25 mg/dL (7-18); BUN/Creat Ratio 16.9 RATIO (10-20); Calcium,Total 9.3 mg/dL (8.5-10.1); Chloride 110 mmol/L (98-107); Creatinine, Serum 1.48 mg/dL (0.55-1.02); EST Glomerular Filtration Rate 36 mL/min (>60); Est Glom Filt Rate - Afr Amer 43 mL/min (>60); Glucose 121 mg/dL (74-106); Potassium 3.3 mmol/L (3.5-5.1); Sodium Level 141 mmol/L (136-145)
--- NOTE | 2021-05-10 08:48 | PN.SURG_ITS ---
Subjective Subjective Patient is tolerating clears with no nausea or vomiting. She is passing flatus. She is still complaining of pain at the incision site. Objective Data Objective Data Vital Signs: Vital Signs Temp Pulse Resp BP Pulse Ox 98.2 F 67 17 129/60 H 98 05/10/21 02:12 05/10/21 07:50 05/10/21 07:36 05/10/21 02:12 05/10/21 07:36 Oxygen Flow Rate (L/min) 2 Oxygen Delivery Method Room Air Weight: 173 lb 11.588 oz Body Mass Index (BMI) 34.4 Intake & Output: Intake and Output for Last 24 Hours 05/08/21 05/09/21 05/10/21 23:59 23:59 23:59 Intake Total 1250 / 1250 900 / 900 Output Total 150 / 150 Balance 1100 / 1100 900 / 900 Lab / Micro Data Result Diagrams: 05/10/21 08:22 05/10/21 08:22 Labs: Laboratory Results - last 24 hr 05/10/21 08:22: WBC 6.2, RBC 3.44 L, Hgb 10.2 L, Hct 31.8 L, MCV 92.4, MCH 29.7, MCHC 32.1, RDW Std Deviation 53.3 H, RDW Coeff of Laxmi 15.7 H, Plt Count 205, MPV 9.6, Immature Gran % (Auto) 0.500, Neut % (Auto) 74.1 H, Lymph % (Auto) 14.9 L, [place] % (Auto) 8.8, Eos % (Auto) 1.4, Baso % (Auto) 0.3, Absolute Neuts (auto) 4.6, Absolute Lymphs (auto) 0.93, Nucleated RBC % 0 05/10/21 08:22: Sodium 141, Potassium 3.3 L, Chloride 110 H, Carbon Dioxide 25.0, Anion Gap 6, BUN 25 H, Creatinine 1.48 H, Estim Creat Clear Calc 35.20, Est GFR (MDRD) Af Amer 43 L, Est GFR (MDRD) Non-Af 36 L, BUN/Creatinine Ratio 16.9, Glucose 121 H, Calcium 9.3 Micro: Microbiology 05/05/21 20:55 Blood Culture (Wb) - Anticubital Left Blood Culture - Preliminary No growth in 48 hours. 05/05/21 21:00 Blood Culture (Wb) - Anticubital Right Blood Culture - Preliminary No growth in 48 hours. 05/05/21 19:40 Nasal Secretion SARS-CoV-2 Antigen (Rapid) - Final Physical Exam Const oriented x3 and no apparent distress Cardio regular rate and regular rhythm GI soft to palpation GI Narrative: Incision clean dry and intact Assessment & Plan Assessment/Plan (1) Small bowel anastomotic leak: PLAN: Patient is tolerating clear liquids and her labs are normal this morning. Creatinine is improving. She is a little hypokalemic I will replace. White count is normal I will advance her to a regular diet. When she is tolerating regular diet she should be ready for discharge to her [facility]. Nnamdi Cooper MD Pager: [facility] [address] [place] [address], [address] [place] [phone] Office:
--- NOTE | 2021-05-10 09:23 | CASEMGMT ---
Social Work Note Pt to likely discharge back to [facility] today. AIDA placed a call to Abena at [facility] and left message updating her. SW faxed updated clinicals to [facility]. Kymberly Nunez CONCRETE PUMP OPERATOR HELPER, FIREWALL ADMINISTRATOR
[2021-05-10] MEDS: Menthol/Lanolin/Calamine/Znox 113 GM Tube 1 APPLIC TOPICAL (09:59)
[2021-05-10] MEDS: Furosemide 40 MG Tablet PO (10:00)
[2021-05-10] MEDS: DULoxetine Hcl 60 MG Capsule PO (10:00)
[2021-05-10] MEDS: amLODIPine 10 MG Tablet PO (10:00)
[2021-05-10] MEDS: Pantoprazole Sodium 20 MG Tablet PO (10:00)
[2021-05-10] MEDS: buPROPion 75 MG Tablet PO (10:01)
--- NOTE | 2021-05-10 12:29 | PCM.TXEXTCAR ---
Diet 05/10/21 08:47 Diet: Regular - General Type of Dietary Supplement:: Ensure Clear Is pt able to select menu?: No Diet Comments: please send ensure clear Wound(s) RFA: Wound Type: Abrasion ABD: Wound Type: Surgical Incision Dressing Change: Dry Sterile Dressing Therapies Weight Bearing: Weight bearing as tolerated Problem/Diagnosis (1) Small bowel anastomotic leak: Status: Acute Allergies/Procedures Done in Hospital Allergies No Known Allergies Allergy (Verified 05/05/21 18:31) Type of Care/Length of Stay Estimated LOS: Convalescent Care Less Than 30 days Type of Care Needed: Skilled Rehab Potential: Fair Prognosis: Fair Additional Orders/Day of Discharge Day of Discharge: 05/10/21 Dietary and Speech Recommendations Dietitian Recommendations/Changes: Rec GIANNA to Regular diet as pt medically able. Follow Up Care Please Follow Up With: Nnamdi Cooper MD When: Call to make 1 week staple removal appt [phone] Discharge Plan Admission Admit Date/Time: 05/06/21 10:46 Attending Provider: Nnamdi Cooper Primary Care Provider: Candice Amado Discharge Orders/Prescriptions Prescriptions: Continued gabapentin 300 mg capsule 300 mg PO QHS RF: 0 hydroxychloroquine 200 mg tablet 200 mg PO BID RF: 0 atenolol 25 MG tablet 25 mg PO BID RF: 0 multivitamin with folic acid [Thera] 1 TABLET tablet 1 tab PO DAILY RF: 0 ferrous sulfate 325 MG tablet 325 mg PO DAILY RF: 0 gabapentin 100 mg capsule 100 mg PO DAILY RF: 0 duloxetine 60 mg capsule,delayed release(DR/EC) 60 mg PO DAILY RF: 0 amlodipine 10 mg tablet 10 mg PO DAILY RF: 0 sennosides-docusate sodium [Stool Softener-Stimulant Laxat] 8.6-50 mg tablet 1 tab-cap PO BID RF: 0 bupropion HCl 75 mg Tablet 75 mg PO BID RF: 0 pramipexole [Mirapex] 0.25 mg Tablet 0.25 mg PO QHS RF: 0 furosemide 40 mg tablet 40 mg PO DAILY RF: 0 pantoprazole 40 mg tablet,delayed release (DR/EC) 40 mg PO BID RF: 0 acetaminophen 500 mg Tablet 1,000 mg PO Q6H PRN PRN (Reason: Pain Score 1-10) Qty: 0 RF: 0 sumatriptan succinate 6 mg/0.5 mL Solution 6 mg subcut DAILY PRN (Reason: MIGRAINE SYMPTOMS) Qty: 0 RF: 0 nystatin [Nyamyc] 100,000 unit/gram Powder 1 applic topical TID Qty: 0 RF: 0 albuterol sulfate [Ventolin HFA] 90 mcg/actuation Hfa Aerosol Inhaler 2 puff inhalation BID Qty: 0 RF: 0 menthol-zinc oxide [Calmoseptine] 0.44-20.6 % Ointment 1 applic topical TID Qty: 0 RF: 0 donepezil 5 mg Tablet 5 mg PO QHS RF: 0 Referrals / Follow Up: Candice Amado DO [Primary Care Provider] - Disposition Disposition (needs filled in before D/C Order can be placed): Shelter Facility
--- NOTE | 2021-05-10 13:35 | CASEMGMT ---
Social Work Note Pt to discharge back to [facility] skilled today. AIDA faxed completed discharge paperwork to [facility] including transfer to extended care facility, signed medication list, any scripts, and COVID test/tool. Original in SNF folder and copy on pt's chart. SW spoke with RN, pt can transport via wheelchair van. SW accessed trip assist and arranged transportation via wheelchair van for 2:30pm. Transportation form completed and placed on SNF Folder and copy on pt's chart. SW in to speak with pt. SW updated pt on discharge back to [facility] and transportation time. AIDA placed a call to Abena at [facility] and updated her on discharge and transportation time. AIDA placed a call to pt's daughter Candi and updated her on discharge and transportation time. RN updated. Plan: Return to [facility] skilled with physician's transporting pt via wheelchair van at 2:30pm MABEL Hyman
--- NOTE | 2021-05-10 14:15 | CHAPLAIN ---
Type of Pastoral Visit _x__ Initial Visit ___ Follow-up Visit ___ On-call Visit ___ General Patient Visit ___ Spiritual Assessment ___ Family Conference ___ Bereavement ___ Rapid Response ___ Code Blue ___ Other (describe below) Pastoral Care Referral From _x__ Patient ___ Family ___ Nurse ___ Physician ___ Production Broacher ___ Clinical Account Specialist ___ Other (describe below) Sacrament/Intervention _x__ Active listening ___ Anointing ___ Gnosticist ___ Bereavement ___ Communion _x__ Krysten exploration ___ _x__ Life review _x__ Prayer ___ Reconciliation ___ Sacrament of Sick _x__ Supportive presence ___ Wedding ___ Other (describe below) Pastoral Comments patient states that she is always worrying; pt just want to go home; gave time and listening; welcomed a prayer
--- NOTE | 2021-05-10 14:26 | PHA.DC.MR ---
Pharmacy Service has performed discharge medication reconciliation for this patient. The patient's discharge medication list was reviewed for discrepancies and discrepancies were resolved. Home Medications atenolol 25 mg PO BID 06/09/15 multivitamin with folic acid [Thera] 1 tab PO DAILY 01/29/18 ferrous sulfate 325 mg PO DAILY 10/19/19 duloxetine 60 mg PO DAILY 12/31/20 gabapentin 100 mg PO DAILY 12/31/20 gabapentin 300 mg capsule 300 mg PO QHS cap 12/31/20 hydroxychloroquine 200 mg tablet 200 mg PO BID tab 12/31/20 amlodipine 10 mg PO DAILY 01/09/21 sennosides-docusate sodium [Stool Softener-Stimulant Laxat] 1 tab-cap PO BID 01/09/21 bupropion HCl 75 mg PO BID 01/16/21 pramipexole [Mirapex] 0.25 mg PO QHS 01/16/21 furosemide 40 mg PO DAILY 01/19/21 pantoprazole 40 mg PO BID 01/19/21 acetaminophen 1,000 mg PO Q6H PRN PRN #0 tab 02/10/21 albuterol sulfate [Ventolin HFA] 2 puff INHALATION BID #0 g 02/10/21 menthol-zinc oxide [Calmoseptine] 1 applic TOPICAL TID #0 g 02/10/21 nystatin [Nyamyc] 1 applic TOPICAL TID #0 g 02/10/21 sumatriptan succinate 6 mg SUBCUT DAILY PRN #0 ml 02/10/21 donepezil 5 mg PO QHS 05/05/21
[2021-05-10] MEDS: Potassium Chloride Oral Tablet 20 MEQ 40 MEQ PO (14:34)
--- NOTE | 2021-05-10 15:03 | NURSING ---
gave report to panda at residential
--- NOTE | 2021-05-12 12:56 | DS.PCM_ITS ---
Providers Date of Admission: 05/06/21 Primary Care Physician: Dr. Candice Amado DO Reason For Visit: POSSIBLE ANASTOMOTIC LEAK Diagnosis Discharge Diagnosis (1) Small bowel anastomotic leak: Status: Acute Code(s): K91.89 - Other postprocedural complications and disorders of digestive system Medications at Discharge Home Medications atenolol 25 mg PO BID 06/09/15 multivitamin with folic acid [Thera] 1 tab PO DAILY 01/29/18 ferrous sulfate 325 mg PO DAILY 10/19/19 duloxetine 60 mg PO DAILY 12/31/20 gabapentin 100 mg PO DAILY 12/31/20 gabapentin 300 mg capsule 300 mg PO QHS cap 12/31/20 hydroxychloroquine 200 mg tablet 200 mg PO BID tab 12/31/20 amlodipine 10 mg PO DAILY 01/09/21 sennosides-docusate sodium [Stool Softener-Stimulant Laxat] 1 tab-cap PO BID 01/09/21 bupropion HCl 75 mg PO BID 01/16/21 pramipexole [Mirapex] 0.25 mg PO QHS 01/16/21 furosemide 40 mg PO DAILY 01/19/21 pantoprazole 40 mg PO BID 01/19/21 acetaminophen 1,000 mg PO Q6H PRN PRN #0 tab 02/10/21 albuterol sulfate [Ventolin HFA] 2 puff INHALATION BID #0 g 02/10/21 menthol-zinc oxide [Calmoseptine] 1 applic TOPICAL TID #0 g 02/10/21 nystatin [Nyamyc] 1 applic TOPICAL TID #0 g 02/10/21 sumatriptan succinate 6 mg SUBCUT DAILY PRN #0 ml 02/10/21 donepezil 5 mg PO QHS 05/05/21 Hospital Course Summary of Care Provided Hospital Course: Patient was admitted and CT scan in ER showed possible anastomotic leak. She was kept on antibiotics and the following day she was taken to surgery and she had a resection of this anastomosis with 3 anastomosis of the small bowel. She tolerated this well and was slowly started on a diet and come the following 4 days later she was discharged back to her residential. Weight / BMI Weight Weight: 173 lb 11.588 oz Body Mass Index (BMI) 34.4 ABG / Lab / Microbiology Data Result Diagrams: 05/10/21 08:22 05/10/21 08:22 Microbiology: Microbiology 05/05/21 20:55 Blood Culture (Wb) - Anticubital Left Blood Culture - Final No growth in 5 days. 05/05/21 21:00 Blood Culture (Wb) - Anticubital Right Blood Culture - Final No growth in 5 days. 05/10/21 09:37 Nasal Secretion SARS-CoV-2 Antigen (Rapid) - Final 05/05/21 19:40 Nasal Secretion SARS-CoV-2 Antigen (Rapid) - Final D/C Instructions Please Follow Up With: Nnamdi Cooper MD Meaningful Use Info Meaningful Use Diagnoses (Choose all that apply): None applicable Discharge Plan Admission Admit Date/Time: 05/06/21 10:46 Attending Provider: Nnamdi Cooper Primary Care Provider: Candice Amado Discharge Orders/Prescriptions Prescriptions: Continued gabapentin 300 mg capsule 300 mg PO QHS RF: 0 hydroxychloroquine 200 mg tablet 200 mg PO BID RF: 0 atenolol 25 MG tablet 25 mg PO BID RF: 0 multivitamin with folic acid [Thera] 1 TABLET tablet 1 tab PO DAILY RF: 0 ferrous sulfate 325 MG tablet 325 mg PO DAILY RF: 0 gabapentin 100 mg capsule 100 mg PO DAILY RF: 0 duloxetine 60 mg capsule,delayed release(DR/EC) 60 mg PO DAILY RF: 0 amlodipine 10 mg tablet 10 mg PO DAILY RF: 0 sennosides-docusate sodium [Stool Softener-Stimulant Laxat] 8.6-50 mg tablet 1 tab-cap PO BID RF: 0 bupropion HCl 75 mg Tablet 75 mg PO BID RF: 0 pramipexole [Mirapex] 0.25 mg Tablet 0.25 mg PO QHS RF: 0 furosemide 40 mg tablet 40 mg PO DAILY RF: 0 pantoprazole 40 mg tablet,delayed release (DR/EC) 40 mg PO BID RF: 0 acetaminophen 500 mg Tablet 1,000 mg PO Q6H PRN PRN (Reason: Pain Score 1-10) Qty: 0 RF: 0 sumatriptan succinate 6 mg/0.5 mL Solution 6 mg subcut DAILY PRN (Reason: MIGRAINE SYMPTOMS) Qty: 0 RF: 0 nystatin [Nyamyc] 100,000 unit/gram Powder 1 applic topical TID Qty: 0 RF: 0 albuterol sulfate [Ventolin HFA] 90 mcg/actuation Hfa Aerosol Inhaler 2 puff inhalation BID Qty: 0 RF: 0 menthol-zinc oxide [Calmoseptine] 0.44-20.6 % Ointment 1 applic topical TID Qty: 0 RF: 0 donepezil 5 mg Tablet 5 mg PO QHS RF: 0 Referrals / Follow Up: Candice Amado DO [Primary Care Provider] - Disposition Disposition (needs filled in before D/C Order can be placed): [facility] Facility
== END 2021-05-10 14:56 | disposition skilled nursing facility (03) | DRG 331 ==
LOC: ED 21:36 → MS3 21:41
PROVIDERS: Admitting Provider Surgery; Emergency Provider Emergency Medicine; PCP Internal Medicine; Visit Provider Surgery
PROC: 0DB80ZZ Excision of Small Intestine, Open Approach (ICD-10-PCS; CPT 49000; principal; 2021-05-06 10:45)
DX: K91.89 Other postprocedural complications and disorders of digestive system (principal); E87.6 Hypokalemia; F41.9 Anxiety disorder, unspecified; H91.93 Unspecified hearing loss, bilateral; E66.9 Obesity, unspecified; N18.32 Chronic kidney disease, stage 3b; Z90.49 Acquired absence of other specified parts of digestive tract; Z86.718 Personal history of other venous thrombosis and embolism; Z68.34 Body mass index [BMI] 34.0-34.9, adult
CPT/HCPCS: 36415; 74176; 80048; 80053; 81001; 83605; 85025; 85610; 85730; 87040; 87426; 88307; 93005; 94640; 97110; 97116; 97163; 97166; 97530; 97535; 97802; 99251; 99285; J7030; J7050; J7120; A4216; G0463; J2405

== ENCOUNTER 2021-06-05 03:39 | Emergency (ER) | payer MEDICARE, BC, SELFPAY ==
[2021-06-05 03:41] VITALS: PULSE 82; RESP 20; TEMP 37.2; O2SAT 94; BMI 36.4
[2021-06-05 03:45] VITALS: BP 211/186
[2021-06-05 03:48] VITALS: BP 211/186; PULSE 82; RESP 20; TEMP 37.2; O2SAT 94
--- NOTE | 2021-06-05 03:57 | EX.ED.DYSGE1 ---
HPI History of Present Illness Chief Complaint: Abd Pain Detail of Chief Complaint: fever Informant: patient, family, EMS and SNF Onset/Context/Timing Onset: Today Context: Gradual Onset Quality: 102.5 Current Severity: Mild Maximum Severity: Moderate Associated Symptoms Associated Symptoms: don't feet good and periumbilical abd pain Narrative Narrative: Patient had a fever of 102.5 at the [facility] tonight, she was given Tylenol and sent to the emergency department. Patient provides limited information and limited review of systems due to memory problems. Daughter is here to assist with the history and states she has had periumbilical abdominal pain for at least the past 3 months, she was seen here and had a perforated viscus with surgery, she later had an abdominal wall infection near her surgical incision that was treated with antibiotics, she has been off of those for about 3 weeks and still has residual abdominal discomfort. Patient does not think it is any different tonight. She is not nauseated. She think she has been having bowel movements and urinating but she does not remember if the last time she urinated was painful. Daughter states this past week she was complaining of dysuria, the nursing at the [facility] said that they would let the doctor know. The daughter has no idea of anything came to that or if she was placed on antibiotics although we see none on her current medication list. Further inspection of orders from the physician that were sent with her paperwork show cephalexin 500 mg 3 times daily x7 days, last dose given on 05/27 for postsurgical abdominal care. [facility] Medical History Abnormal bruising Alzheimer disease Anxiety Chronic neck and back pain Chronic pain Dementia Difficulty balancing when standing DVT (deep venous thrombosis) Hearing loss, left Hearing loss, right Incontinence Knee pain Migraines Non-smoker On home oxygen therapy Polyosteoarthritis Polyosteoarthritis Severe headache Shoulder pain SOB (shortness of breath) Home Medications atenolol 25 mg PO BID 06/09/15 [History Last Taken 12/31/20] multivitamin with folic acid [Thera] 1 tab PO DAILY 01/29/18 [History Last Taken 01/15/21 08:10] ferrous sulfate 325 mg PO DAILY 10/19/19 [History Last Taken 01/15/21 12:00] duloxetine 60 mg PO DAILY 12/31/20 [History Last Taken 01/14/21 09:00] gabapentin 100 mg PO DAILY 12/31/20 [History Last Taken 01/15/21 08:10] gabapentin 300 mg capsule 300 mg PO QHS cap 12/31/20 [History Last Taken 01/14/21 22:00] hydroxychloroquine 200 mg tablet 200 mg PO BID tab 12/31/20 [History Last Taken 01/15/21 06:30] amlodipine 10 mg PO DAILY 01/09/21 [History Last Taken 01/15/21 09:00] sennosides-docusate sodium [Stool Softener-Stimulant Laxat] 1 tab-cap PO BID 01/09/21 [History Last Taken 01/15/21 09:00] bupropion HCl 75 mg PO BID 01/16/21 [History Last Taken 01/15/21 06:30] pramipexole [Mirapex] 0.25 mg PO QHS 01/16/21 [History Last Taken 01/14/21 21:00] furosemide 40 mg PO DAILY 01/19/21 [History Last Taken Unknown] pantoprazole 40 mg PO BID 01/19/21 [History Last Taken Unknown] acetaminophen 1,000 mg PO Q6H PRN PRN #0 tab 02/10/21 [Rx Last Taken Unknown] albuterol sulfate [Ventolin HFA] 2 puff INHALATION BID #0 g 02/10/21 [Rx Last Taken Unknown] menthol-zinc oxide [Calmoseptine] 1 applic TOPICAL TID #0 g 02/10/21 [Rx Last Taken Unknown] nystatin [Nyamyc] 1 applic TOPICAL TID #0 g 02/10/21 [Rx Last Taken Unknown] Barrier Cream 1 applic TRANSDERMAL BID 06/05/21 [History Last Taken Unknown] Barrier Cream 1 applic TRANSDERMAL TID PRN PRN 06/05/21 [History Last Taken Unknown] alum-mag hydroxide-simeth [Erinn-Lanta] 15 ml PO Q4H PRN 06/05/21 [History Last Taken Unknown] bisacodyl [Dulcolax (bisacodyl)] 10 mg NH DAILY PRN 06/05/21 [History Last Taken Unknown] donepezil 10 mg PO QHS 06/05/21 [History Last Taken Unknown] food supplemt, lactose-reduced [Ensure Clear] 120 ml PO TID 06/05/21 [History Last Taken Unknown] lidocaine 1 patch TOPICAL DAILY 06/05/21 [History Last Taken Unknown] resorcinol-alcohol [Lotion] 1 ea TOPICAL DAILY 06/05/21 [History Last Taken Unknown] sulfamethoxazole-trimethoprim 1 tab PO BID #14 tablet 06/05/21 [Rx Last Taken Unknown] sumatriptan succinate 50 mg PO DAILY PRN PRN 06/05/21 [History Last Taken Unknown] topiramate 25 mg PO BID 06/05/21 [History Last Taken Unknown] Allergy/AdvReac Type Severity Reaction Status Date / Time No Known Allergies Allergy Verified 06/05/21 04:16 Family History Mother No significant active problems Other Headache Surgical History (Updated 05/21/21 @ 07:49 by Reyna Busby) History of appendectomy History of back surgery History of cholecystectomy History of foot surgery History of hernia surgery History of surgery on wrist S/P small bowel resection S/P small bowel resection (~05/2021) Small bowel perforation Social History household members: family housing: house Smoking Status: Never smoker alcohol intake: never ROS ROS ED Review of Systems ROS Unobtainable: other Details: limited due to dementia ENT ENT ED: Denies sore throat Cardiovascular Cardiovascular: Denies chest pain Respiratory/Chest Respiratory/Chest: Denies dyspnea Gastrointestinal Gastrointestinal: Reports as per HPI and abdominal pain; Denies diarrhea, nausea or vomiting Musculoskeletal Musculoskeletal: Denies back pain or neck pain Integumentary Denies abscess or rash Neurologic Neurologic: Denies headache(s), paresthesias or weakness EXAM Physical Exam Const Vital Signs: 06/05/21 03:41 06/05/21 03:45 06/05/21 03:48 Temperature 99 F 99 F Temperature Source Oral Oral Pulse Rate 82 82 Respiratory Rate 20 H 20 H Blood Pressure 211/186 H 211/186 H Blood Pressure Mean 194 194 Pulse Ox 94 94 Oxygen Delivery Method Room Air Room Air Positive well nourished and well developed General Appearance ED: well developed and NAD HEENT Reports moist mucous membranes normocephalic and atraumatic Eyes PERRL and EOMs intact bilaterally Neck full ROM and supple Resp normal respiratory effort and clear to auscultation bilaterally Cardio regular rate, regular rhythm and no murmurs GI non-distended GI Narrative: Diffusely tender in most areas of abdomen except for left lower quadrant. Healing midline surgical incision/scar with a scab at the superior aspect of it and no signs of cellulitis or abscess. Mildly tender throughout it. Auscultation: normoactive bowel sounds Palpation: soft Back/Spine no CVA tenderness General Back: other FROM Extremity normal to inspection General Extremety ED: Negative for edema, pulses abnormal or tenderness General Extremity: Negative for edema or pulses abnormal Neuro CN's II-XII intact bilaterally and no sensory deficits noted Sensorium / Orientation: awake, alert, oriented to person, orientation impaired and other At baseline according to family Motor Exam: strength 5/5 throughout Skin no rashes or lesions noted and no wounds MDM MDM MDM Narrative Medical decision making narrative: Patient has a leukocytosis, low-grade fever, and evidence of urinary tract infection. She does have some mild AGUSTIN. I do not believe this is enough to require admission on its own, and otherwise she is clinically well and stable. She was pancultured, given IV Rocephin, and since she recently was on cephalexin I sent her back to [facility] with a prescription for sulfamethoxazole/trimethoprim for the next [address]. [address] her on ciprofloxacin since she is on hydroxychloroquine, and even if she stopped it its half-life would not allow a course of this to begin now due to risk of prolonged QT interval. Clinically inconsistent with pyelonephritis and clinically not septic. Lab Data Attestation: I reviewed the patient's lab results. Labs: Laboratory Results - last 24 hr 06/05/21 06/05/21 06/05/21 03:47 03:47 04:39 WBC 13.9 H RBC 3.06 L Hgb 9.2 L Hct 28.6 L MCV 93.5 MCH 30.1 MCHC 32.2 RDW Std Deviation 54.2 H RDW Coeff of Laxmi 15.9 H Plt Count 157 MPV 10.1 Immature Gran % (Auto) 0.900 Neut % (Auto) 83.1 H Lymph % (Auto) 5.2 L Haines % (Auto) 10.3 H Eos % (Auto) 0.1 Baso % (Auto) 0.4 Absolute Neuts (auto) 11.6 H Absolute Lymphs (auto) 0.73 L Nucleated RBC % 0 Sodium 139 Potassium 3.8 Chloride 107 Carbon Dioxide 24.0 Anion Gap 8 BUN 36 H Creatinine 2.49 H Estim Creat Clear Calc 21.36 Est GFR (MDRD) Af Amer 24 L Est GFR (MDRD) Non-Af 20 L BUN/Creatinine Ratio 14.5 Glucose 108 H Calcium 9.0 Total Bilirubin 0.40 AST 15 ALT 20 Alkaline Phosphatase 121 H Troponin I High Sens 9 Total Protein 6.2 L Albumin 2.4 L Globulin 3.8 Albumin/Globulin Ratio 0.6 L Lipase 54 L Urine Color Yellow Urine Clarity Turbid Urine pH 5.0 Ur Specific Warren 1.020 Urine Protein 100 H Urine Glucose (UA) Normal Urine Ketones Negative Urine Occult Blood 150 H Urine Nitrite Positive H Urine Bilirubin Negative Urine Urobilinogen Normal Ur Leukocyte Esterase 500 H Radiography Chest X-Ray - ED: 1 View, Read by ED Physician, No Acute Disease and Chronic Changes Diagnostic Testing: Clinical Impression(s) from Imaging Studies Chest X-Ray 06/05/21 04:15 IMPRESSION: Degenerative changes, as described above. No demonstrated acute cardiopulmonary process. Electronically Signed: Paulette Greenwood MD at 4:35 EDT Tel , Service support , Discharge Plan Triage Chief Complaint: Abd Pain ED Provider: Matthew Lundberg Dx/Rx/DC Orders Clinical Impression: Urinary tract infection with fever, Acute postoperative abdominal pain Instructions: ED CYSTITIS Female Adult Prescriptions: New sulfamethoxazole-trimethoprim [sulfamethoxazole-trimethoprim] 1 TABLET tablet 1 tab PO BID Qty: 14 RF: 0 No Action gabapentin 300 mg capsule 300 mg PO QHS RF: 0 hydroxychloroquine 200 mg tablet 200 mg PO BID RF: 0 atenolol 25 MG tablet 25 mg PO BID RF: 0 multivitamin with folic acid [Thera] 1 TABLET tablet 1 tab PO DAILY RF: 0 ferrous sulfate 325 MG tablet 325 mg PO DAILY RF: 0 gabapentin 100 mg capsule 100 mg PO DAILY RF: 0 duloxetine 60 mg capsule,delayed release(DR/EC) 60 mg PO DAILY RF: 0 amlodipine 10 mg tablet 10 mg PO DAILY RF: 0 sennosides-docusate sodium [Stool Softener-Stimulant Laxat] 8.6-50 mg tablet 1 tab-cap PO BID RF: 0 bupropion HCl 75 mg Tablet 75 mg PO BID RF: 0 pramipexole [Mirapex] 0.25 mg Tablet 0.25 mg PO QHS RF: 0 furosemide 40 mg tablet 40 mg PO DAILY RF: 0 pantoprazole 40 mg tablet,delayed release (DR/EC) 40 mg PO BID RF: 0 acetaminophen 500 mg Tablet 1,000 mg PO Q6H PRN PRN (Reason: Pain Score 1-10) Qty: 0 RF: 0 nystatin [Nyamyc] 100,000 unit/gram Powder 1 applic topical TID Qty: 0 RF: 0 albuterol sulfate [Ventolin HFA] 90 mcg/actuation Hfa Aerosol Inhaler 2 puff inhalation BID Qty: 0 RF: 0 menthol-zinc oxide [Calmoseptine] 0.44-20.6 % Ointment 1 applic topical TID Qty: 0 RF: 0 donepezil 10 mg tablet 10 mg PO QHS RF: 0 sumatriptan succinate 50 mg tablet 50 mg PO DAILY PRN PRN (Reason: Headache) RF: 0 topiramate 25 mg capsule, sprinkle 25 mg PO BID RF: 0 bisacodyl [Dulcolax (bisacodyl)] 10 mg Suppository 10 mg NH DAILY PRN (Reason: Constipation) RF: 0 lidocaine 5 % Adhesive Patch,Medicated 1 patch TOPICAL DAILY RF: 0 alum-mag hydroxide-simeth [Erinn-Lanta] 200-200-20 mg/5 mL Suspension 15 ml PO Q4H PRN (Reason: Heartburn) RF: 0 Ensure Clear Liquid 120 ml PO TID RF: 0 Lotion Lotion 1 ea TOPICAL DAILY RF: 0 Barrier Cream 1 applic transdermal BID RF: 0 Barrier Cream 1 applic transdermal TID PRN PRN (Reason: Redness) RF: 0 Primary Care Provider: Jose Fernández Referrals: Jose Fernández MD [Primary Care Provider] - 3-5 Days Disposition Disposition: Home, Self Care
[2021-06-05] MEDS: Morphine 2 MG/ML Syringe IV (04:09)
--- NOTE | 2021-06-05 04:15 | RAD_ITS ---
STUDY: X-RAY CHEST REASON FOR EXAM: Female, 86 years old. fever TECHNIQUE: Single AP portable view of the chest. COMPARISON: None. FINDINGS: The lungs are underexpanded. There is no demonstrated pleural abnormality. Normal size heart. Normal mediastinum and georgi. Normal visualized pulmonary arteries. Normal visualized aortic arch and descending thoracic aorta. Normal visualized thoracic spine. There is degenerative osteoarthritis of the bilateral shoulders. There is no demonstrated abnormality of the visualized soft tissue structures of the upper abdomen. RAD/Chest 1 View (Portable) IMPRESSION: Degenerative changes, as described above. No demonstrated acute cardiopulmonary process. Electronically Signed: Paulette Greenwood MD at 4:35 EDT Tel , Service support ,
[2021-06-05 04:17] LABS: Absolute Lymphocyte Count 0.73 X10^3/uL (0.83-4.51); Absolute Neutrophil Count 11.6 X10^3/uL (2.0-7.7); Basophil# 0.06 X10^3/uL; Basophil% 0.4 % (0-1); Eosinophil# 0.01 X10^3/uL; Eosinophils% 0.1 % (0-5); Hematocrit 28.6 % (37-47); Hemoglobin 9.2 g/dL (12.0-15.0); Lymphocyte # 0.73 X10^3/ul (0.83-4.51); Lymphocyte % 5.2 % (19-41); Mean Corp Hgb Conc 32.2 g/dL (32-36); Mean Corpuscular Hgb 30.1 pg (27.0-32.0); Mean Corpuscular Volume 93.5 fL (81-99); Mean Platelet Vol. 10.1 fl (6.2-12.0); Monocyte# 1.43 X10^3/uL; Monocyte% 10.3 % (0-10); NRBC Flagged by Analyzer 0 % (0-5); Neutrophil # 11.59 X10^3/uL (2.7-7.7); Neutrophil % 83.1 % (47-70); Platelet Count 157 K/mm3 (150-450); RBC Distribution Width CV 15.9 % (11.6-14.6); RBC Distribution Width SD 54.2 fl (35.1-43.9); Red Blood Count 3.06 M/mm3 (4.2-5.4); White Blood Count 13.9 K/mm3 (4.4-11.0)
[2021-06-05 04:32] LABS: ALB/GLOB Ratio 0.6 RATIO (0.9-2.4); AST(SGOT) 15 U/L (15-37); Alanine Aminotransfer ALT/SGPT 20 U/L (13-56); Albumin, Serum 2.4 g/dL (3.2-5.0); Alkaline Phosphatase 121 U/L (45-117); Anion Gap 8 (5-15); BUN 36 mg/dL (7-18); BUN/Creat Ratio 14.5 RATIO (10-20); Chloride 107 mmol/L (98-107); Creatinine, Serum 2.49 mg/dL (0.55-1.02); EST Glomerular Filtration Rate 20 mL/min (>60); Est Glom Filt Rate - Afr Amer 24 mL/min (>60); Estimated Creatinine Clearance 21.36 ml/min; Globulin 3.8 g/dL (2.2-4.2); Glucose 108 mg/dL (74-106); Lipase 54 U/L (73-393); Potassium 3.8 mmol/L (3.5-5.1); Protein, Total 6.2 g/dL (6.4-8.2); Sodium Level 139 mmol/L (136-145); Troponin-I HS 9 pg/mL (3.0-54.0)
[2021-06-05 04:46] LABS: Mucous, Urine 0 SEEN /hpf (<or=2+); Squamous Epithelial Cells - UA 0 SEEN /hpf (5-10)
[2021-06-05 04:47] LABS: Color, Urine Yellow (Yellow); Glucose, Dipstick Normal (Normal); Ketone-Dipstick Negative (Negative); Leukocyte Esterase-Dipstick 500 /ul (Negative); Nitrite-Dipstick Positive (Negative); Occult Blood-Urine 150 /ul (Negative); Protein-Dipstick 100 mg/dl (Negative); Urine Bilirubin Dipstick Negative (Negative); Urine Clarity Turbid (Clear); Urine Urobilinogen Normal (Normal)
[2021-06-05 04:57] LABS: White Blood Cells >100 SEEN /hpf (0-5)
[2021-06-05 04:58] LABS: Bacteria 3+ /hpf (None Seen); Red Blood Cells-Urine 10-25 SEEN /hpf (0-5)
[2021-06-05] MEDS: Ceftriaxone 1 GM/50 ML BAG IV (05:09)
[2021-06-05 05:43] VITALS: BP 188/89; PULSE 90; RESP 20; TEMP 37.1; O2SAT 94
--- NOTE | 2021-06-05 06:15 | ED.RN ---
Juana at [facility] updated with POC and discharge back to facility.
--- NOTE | 2021-06-06 00:36 | ED.RN ---
lab called with critical lab results. positive blood cultures x2 gram negative cocci. Spoke with dr. Fu at this time. Patient should receive IV atx treatment. Patient is currently a resident at [facility]. Spoke to nursing staff there at this time. They are able to administer the required medications if order to be given. Spoke with Dr. Fu at this time and written order given at this time. [place] orders faxed over to [facility] at this time. They will call back if not able to complete the orders.
--- NOTE | 2021-06-08 19:52 | ED.RN ---
THIS RN SPOKE WITH VIRA WILKINSON AT [facility] REGARDING BLOOD CULTURE RESULTS AND RECOMMENDED FOLLOW UP TREATMENT FROM . VIRA STATES THAT PATIENT HAS BEEN STARTED ON 1G MEROPENUM PER DAY VIA [facility]LINE. LAB RESULTS FAXED TO A RECEIVED BY FACILITY.
== END 2021-06-05 06:15 | disposition home or self-care (01) ==
PROVIDERS: Emergency Provider Emergency Medicine; PCP Family Medicine
DX: N39.0 Urinary tract infection, site not specified (principal); R10.32 Left lower quadrant pain; G89.18 Other acute postprocedural pain; B96.89 Other specified bacterial agents as the cause of diseases classified elsewhere; G30.9 Alzheimer's disease, unspecified; F02.80 Dementia in other diseases classified elsewhere, unspecified severity, without behavioral disturbance, psychotic disturbance, mood disturbance, and anxiety; M15.9 Polyosteoarthritis, unspecified; Z90.49 Acquired absence of other specified parts of digestive tract; Z90.89 Acquired absence of other organs; Z99.81 Dependence on supplemental oxygen; Z79.899 Other long term (current) drug therapy
CPT/HCPCS: 36415; 71045; 80053; 81001; 83690; 84484; 85025; 87040; 87077; 87086; 87088; 87186; 87426; 96365; 96375; 99285; P9612

== ENCOUNTER 2021-06-19 12:13 | Inpatient (IN) | payer MEDICARE, BC, SELFPAY ==
[2021-06-19] VITALS (10 sets, daily range): BP systolic 109–189; BP diastolic 48–140; PULSE 66–70; RESP 15–24; TEMP 36.4–36.7; O2SAT 94–100; BMI 28.6; BMI 27.8
--- NOTE | 2021-06-19 12:23 | CT_ITS ---
STUDY: CT ABDOMEN AND PELVIS WITHOUT CONTRAST REASON FOR EXAM: Female, 86 years old. Abdominal pain bowel resection appendectomy RADIATION DOSAGE (If Supplied By Facility): CTDIvol = ( 30.69 ) mGy, DLP = ( 1387.91 ) mGycm TECHNIQUE: Transaxial images were obtained from the dome of the diaphragm to the symphysis pubis without oral contrast, and without intravenous contrast. Sagittal and coronal images were reconstructed. Individualized dose optimization techniques were used for this CT. COMPARISON: 05 May 2021 FINDINGS: There is atelectasis. There are no pleural effusions. There is a moderate hiatal hernia. Normal liver. Gallbladder is removed. There is no biliary dilation.. Normal spleen. Normal pancreas. Normal bilateral adrenal glands. Normal right kidney. Normal left kidney. There is no intestinal obstruction. There is moderately extensive perienteric inflammation in the anterior and left upper abdomen with minimal perforation and bubble of gas in the peritoneum. This is likely related to transverse diverticulitis. There is no abscess. There is a separate region bowel suture line in the central abdomen. Normal abdominal aorta. Normal inferior vena cava. Normal retroperitoneum. Normal urinary bladder. There is hysterectomy. Normal abdominal wall. There are degenerative changes in the lumbar spine with grade 2 L4-L5 anterolisthesis and laminectomy decompression of L4-L5. There is L3-L5 pedicular screw fusion. Canal is patent. CT/Abdomen/Pelvis without Cont IMPRESSION: 1. Extensive acute left upper quadrant transverse diverticulitis with small perforation. No abscess. Electronically Signed: Tim Randle MD at 14:55 EST Tel , Service support ,
--- NOTE | 2021-06-19 12:23 | EKG12_ITS ---
Test Reason : Blood Pressure : / mmHG Vent. Rate : 068 BPM Atrial Rate : 068 BPM P-R Int : 200 ms QRS Dur : 090 ms QT Int : 422 ms P-R-T Axes : 005 -41 004 degrees QTc Int : 448 ms Normal sinus rhythm Left axis deviation Inferior infarct , age undetermined Abnormal ECG Confirmed by HONORIO MONTANEZ, RACHELE ([id number]), city editor HOLLY FLOR ([id number]) on 06/21/2021 10:57:43 AM Referred By: Julianne Parish Confirmed By:RACHELE OLMEDO MD
--- NOTE | 2021-06-19 12:25 | EDS_ITS ---
HPI HPI - GI History of Present Illness Chief Complaint: Nausea/Vomiting/Diarrhea Informant: patient, EMS and SNF Abdominal Pain/Flank Pain Onset: Days Context: Gradual Onset Timing: Continuous Quality: Aching Location: Diffuse Current Severity: Mild Maximum Severity: Mild Nausea/Vomiting/Emesis GI Symptom: Positive for Nausea and Vomiting Onset: Days Severity: Mild Diarrhea/Melena/Hematochezia GI Symptom: Positive for Diarrhea Onset: Days Stool Quality: Positive for Loose Severity: Mild Associated Symptoms Associated Symptoms: Negative for Dysuria, Frequency and Hematuria Narrative Narrative: 86-year-old female with dementia from extended care facility sent in for nausea and vomiting. Patient is a limited informant due to her history of dementia. She reportedly recently abdominal surgery. She is also recently UTI which was treated at the facility that she is at with IV antibiotics which were recently discontinued. She denies any fever. On exam she does have diffuse abdominal pain. She also has a well-healed midline vertical abdominal surgery incision is dry and clean. Prior similar symptoms: No Recent Illness/Hospitalization: Yes [facility] Medical History Abnormal bruising Alzheimer disease Anxiety Chronic neck and back pain Chronic pain Dementia Difficulty balancing when standing DVT (deep venous thrombosis) Hearing loss, left Hearing loss, right Incontinence Knee pain Migraines Non-smoker On home oxygen therapy Polyosteoarthritis Polyosteoarthritis Severe headache Shoulder pain SOB (shortness of breath) Home Medications atenolol 25 mg PO BID 06/09/15 [History Last Taken 12/31/20] multivitamin with folic acid [Thera] 1 tab PO DAILY 01/29/18 [History Last Taken 01/15/21 08:10] ferrous sulfate 325 mg PO DAILY 10/19/19 [History Last Taken 01/15/21 12:00] duloxetine 60 mg PO DAILY 12/31/20 [History Last Taken 01/14/21 09:00] gabapentin 100 mg PO DAILY 12/31/20 [History Last Taken 01/15/21 08:10] gabapentin 300 mg capsule 300 mg PO QHS cap 12/31/20 [History Last Taken 01/14/21 22:00] hydroxychloroquine 200 mg tablet 200 mg PO BID tab 12/31/20 [History Last Taken 01/15/21 06:30] amlodipine 10 mg PO DAILY 01/09/21 [History Last Taken 01/15/21 09:00] sennosides-docusate sodium [Stool Softener-Stimulant Laxat] 1 tab-cap PO BID 01/09/21 [History Last Taken 01/15/21 09:00] bupropion HCl 75 mg PO BID 01/16/21 [History Last Taken 01/15/21 06:30] pramipexole [Mirapex] 0.25 mg PO QHS 01/16/21 [History Last Taken 01/14/21 21:00] furosemide 40 mg PO DAILY 01/19/21 [History Last Taken Unknown] pantoprazole 40 mg PO BID 01/19/21 [History Last Taken Unknown] acetaminophen 1,000 mg PO Q6H PRN PRN #0 tab 02/10/21 [Rx Last Taken Unknown] albuterol sulfate [Ventolin HFA] 2 puff INHALATION BID #0 g 02/10/21 [Rx Last Taken Unknown] menthol-zinc oxide [Calmoseptine] 1 applic TOPICAL TID #0 g 02/10/21 [Rx Last Taken Unknown] nystatin [Nyamyc] 1 applic TOPICAL TID #0 g 02/10/21 [Rx Last Taken Unknown] Barrier Cream 1 applic TRANSDERMAL TID PRN PRN 06/05/21 [History Last Taken Unknown] alum-mag hydroxide-simeth [Erinn-Lanta] 15 ml PO Q4H PRN 06/05/21 [History Last Taken Unknown] bisacodyl [Dulcolax (bisacodyl)] 10 mg HI DAILY PRN 06/05/21 [History Last Taken Unknown] donepezil 10 mg PO QHS 06/05/21 [History Last Taken Unknown] lidocaine 1 patch TOPICAL DAILY 06/05/21 [History Last Taken Unknown] sumatriptan succinate 50 mg PO DAILY PRN PRN 06/05/21 [History Last Taken Unknown] topiramate 25 mg PO BID 06/05/21 [History Last Taken Unknown] Lactobacillus rhamnosus GG [Culturelle] 1 cap PO DAILY 06/19/21 [History Last Taken Unknown] diclofenac sodium 75 mg PO BID 06/19/21 [History Last Taken Unknown] potassium chloride 20 meq PO DAILY 06/19/21 [History Last Taken Unknown] Allergy/AdvReac Type Severity Reaction Status Date / Time No Known Allergies Allergy Verified 06/19/21 12:22 Family History Mother No significant active problems Other Headache Surgical History History of appendectomy History of back surgery History of cholecystectomy History of foot surgery History of hernia surgery History of surgery on wrist S/P small bowel resection S/P small bowel resection (~05/2021) Small bowel perforation Social History household members: family housing: house Smoking Status: Never smoker alcohol intake: never ROS ROS ED ROS Narrative Nausea, vomiting, diarrhea and abdominal pain. Review of Systems ROS Unobtainable: due to mental status Constitutional Constitutional ED: Denies chills or fever(s) ENT ENT ED: Denies ear pain Cardiovascular Cardiovascular: Denies chest pain Respiratory/Chest Respiratory/Chest: Denies cough or dyspnea Gastrointestinal Gastrointestinal: Reports abdominal pain, diarrhea, nausea and vomiting Genitourinary Genitourinary ED: Denies dysuria Musculoskeletal Musculoskeletal: Denies myalgias Integumentary Denies rash Neurologic Neurologic: Denies headache(s) Psychiatric Psychiatric: Denies depression Endocrine Endocrinology: Denies polyuria Hematologic/Lymphatic Hematologic/Lymphatic: Denies easy bruising Allergic/Immunologic Allergic/Immunologic ED: Denies urticaria EXAM Physical Exam Narrative Exam Narrative: 86-year-old female lying in bed vital signs stable afebrile. H EENT exam very dry mucous membranes. Neck nontender. Lungs clear to auscultation. Heart regular rhythm rate about 70. Abdomen diffusely tender. Decreased bowel sounds. Not specifically distended. No obvious hernia or mass. Well-healed midline vertical surgical incision that appears to be recent. There is no signs of any type of wound infection or discharge. She is diffusely tender in all quadrants. Moving all 4 extremities nontender no edema. Neurologically she is awake. She is alert. She is demented and does not know place or time. She does answer questions and follow commands. She has no focal motor deficits. Const Vital Signs: 06/19/21 12:14 06/19/21 12:59 06/19/21 14:26 Temperature 98.1 F 98.1 F 98.0 F Temperature Source Oral Oral Temporal Pulse Rate 67 69 68 Respiratory Rate 24 H 21 H 15 Blood Pressure 116/62 109/48 L 189/111 H Blood Pressure Mean 80 68 137 Pulse Ox 96 96 100 Oxygen Delivery Method Room Air Room Air Room Air Positive well nourished, well developed and obese; Negative for cachectic, co ntractures or unkempt General Appearance ED: well developed and NAD; Negative for unkempt, cachectic, contractures or pallor Nutritional Appearance: obese; Negative for cachectic HEENT Reports dry mucous membranes normocephalic and atraumatic; Negative for trauma or tenderness Mouth ED: Yes dry mucous membranes Mouth: dry mucous membranes Eyes PERRL and EOMs intact bilaterally Neck no lymphadenopathy, supple and no JVD General: Negative for tenderness Resp normal respiratory effort and clear to auscultation bilaterally Auscultation: Negative for rales, rhonchi or wheezes Cardio regular rate, regular rhythm, S1 normal heart sound, S2 normal heart sound and no murmurs GI non-distended and no masses; Negative for non-tender Inspection: Negative for abdominal distention Auscultation: hypoactive bowel sounds; Negative for normoactive bowel sounds or hyperactive bowel sounds Palpation: soft and tender; Negative for guarding, rigid or rebound tenderness present Back/Spine no CVA tenderness General Back: Negative for CVA tenderness Extremity full ROM General Extremety ED: Negative for edema or tenderness General Extremity: Negative for edema Neuro moves all extremities Sensorium / Orientation: alert, oriented to person, orientation impaired and confused; Negative for oriented to place, oriented to time, lethargic or stuporous Motor Exam: strength 5/5 throughout Psych mental status grossly normal and thought process normal Appearance: Negative for unkempt Skin no wounds General Skin Exam: Negative for jaundice or pallor Lesions: no lesions Rashes: no rashes MDM MDM MDM Narrative Medical decision making narrative: 86-year-old demented female presents with nausea, vomiting and diarrhea with abdominal pain. Clinically she looks dehydrated. Patient be treated with IV fluids times a liter and IV Zofran for nausea. Labs are being obtained along with a CAT scan. Her last GFR was below 30 that was done recently if that remains the case today the CAT scan will have to be done without IV contrast. Patient did have vomiting which looked like stool. She may have aspirated when she initially vomited. Repeat exam patient resting in bed. I have ordered IV Zosyn. I just spoke with Dr. Nnamdi ibarra general surgery who is familiar with this patient and will be and evaluate her. Lab Data Attestation: I reviewed the patient's lab results. Lab results narrative: CBC showed a white count of 16.6 hemoglobin is 7.1. Last hemoglobins were around 8.5. Her electrolytes show sodium 140 potassium of 5.5. Her gap is 11 her BUN is 89 previously it was around 35 and her creatinine is 4.54 and her most recent one before this 1 was 1.9. Consistent with dehydration and acute kidney injury. Liver enzymes are slightly elevated with alk phos of 2.59 lipase is normal at 99. CAT scan is read by the radiologist shows diverticulitis with perforation. U rinalysis is negative. Labs: Laboratory Results - last 24 hr 06/19/21 06/19/21 06/19/21 12:30 12:30 13:49 WBC 16.6 H RBC 2.48 L Hgb 7.1 L Hct 23.1 L MCV 93.1 MCH 28.6 MCHC 30.7 L RDW Std Deviation 53.1 H RDW Coeff of Laxmi 15.6 H Plt Count 285 MPV 9.8 Immature Gran % (Auto) 0.700 Neut % (Auto) 87.7 H Lymph % (Auto) 4.8 L [place] % (Auto) 6.6 Eos % (Auto) 0.0 Baso % (Auto) 0.2 Absolute Neuts (auto) 14.5 H Absolute Lymphs (auto) 0.79 L Nucleated RBC % 0 Sodium 140 Potassium 5.5 H Chloride 114 H Carbon Dioxide 15.0 L Anion Gap 11 BUN 89 H Creatinine 4.54 H Estim Creat Clear Calc 8.15 Est GFR (MDRD) Af Amer 12 L Est GFR (MDRD) Non-Af 10 L BUN/Creatinine Ratio 19.6 Glucose 101 Calcium 9.5 Total Bilirubin 0.50 AST 66 H ALT 59 H Alkaline Phosphatase 259 H Total Protein 6.1 L Albumin 1.8 L Globulin 4.3 H Albumin/Globulin Ratio 0.4 L Lipase 99 Urine Color Yellow Urine Clarity Clear Urine pH 5.0 Ur Specific [place] 1.020 Urine Protein Negative Urine Glucose (UA) Normal Urine Ketones Negative Urine Occult Blood Negative Urine Nitrite Negative Urine Bilirubin Negative Urine Urobilinogen Normal Ur Leukocyte Esterase 25 H Urine RBC 0 SEEN Urine WBC 0-5 SEEN Ur Squamous Epith Cells 0-5 SEEN Urine Bacteria 0 SEEN Urine Mucus 0 SEEN Radiography Diagnostic Testing: Clinical Impression(s) from Imaging Studies Abdomen/Pelvis CT 06/19/21 12:23 IMPRESSION: 1. Extensive acute left upper quadrant transverse diverticulitis with small perforation. No abscess. Electronically Signed: Tim Randle MD at 14:55 EST Tel , Service support , Rhythm Strip Rhythm Strip: Sinus Rhythm Rate: 68 Ectopy: None EKG Initial EKG: Attestation: I personally reviewed and interpreted this EKG as follows: Interpretation: Sinus Rhythm and No Acute Injury Pattern Comments: Normal sinus rhythm rate of 68 no acute signs of AR or ischemia. Critical Care Time Critical care time (excluding procedures): 30-74 minutes, Discussing w/Patient &/or Family/[employer]ter, Discussing w/Consultants, Arranging Admission or Transfer, Performing Direct Patient Care at Bedside and - (31 min) Discharge Plan Dx/Rx/DC Orders Clinical Impression: Acute diverticulitis, Acute kidney injury, Bowel perforation, Leukocytosis, Acute dehydration Disposition Disposition: Acute Care [facility]
[2021-06-19] MEDS: 0.9% Normal Saline 1,000 ML 1000 ML IV (12:35)
[2021-06-19 12:38] LABS: Absolute Lymphocyte Count 0.79 X10^3/uL (0.83-4.51); Absolute Neutrophil Count 14.5 X10^3/uL (2.0-7.7); Basophil# 0.03 X10^3/uL; Basophil% 0.2 % (0-1); Hematocrit 23.1 % (37-47); Hemoglobin 7.1 g/dL (12.0-15.0); Lymphocyte # 0.79 X10^3/ul (0.83-4.51); Lymphocyte % 4.8 % (19-41); Mean Corp Hgb Conc 30.7 g/dL (32-36); Mean Corpuscular Hgb 28.6 pg (27.0-32.0); Mean Corpuscular Volume 93.1 fL (81-99); Mean Platelet Vol. 9.8 fl (6.2-12.0); Monocyte% 6.6 % (0-10); NRBC Flagged by Analyzer 0 % (0-5); Neutrophil # 14.53 X10^3/uL (2.7-7.7); Neutrophil % 87.7 % (47-70); Platelet Count 285 K/mm3 (150-450); RBC Distribution Width CV 15.6 % (11.6-14.6); RBC Distribution Width SD 53.1 fl (35.1-43.9); Red Blood Count 2.48 M/mm3 (4.2-5.4); White Blood Count 16.6 K/mm3 (4.4-11.0)
[2021-06-19] MEDS: Ondansetron 4 MG/2 ML Vial IV (12:42)
[2021-06-19 12:54] LABS: ALB/GLOB Ratio 0.4 RATIO (0.9-2.4); AST(SGOT) 66 U/L (15-37); Alanine Aminotransfer ALT/SGPT 59 U/L (13-56); Albumin, Serum 1.8 g/dL (3.2-5.0); Alkaline Phosphatase 259 U/L (45-117); Anion Gap 11 (5-15); BUN 89 mg/dL (7-18); BUN/Creat Ratio 19.6 RATIO (10-20); Calcium,Total 9.5 mg/dL (8.5-10.1); Chloride 114 mmol/L (98-107); Creatinine, Serum 4.54 mg/dL (0.55-1.02); EST Glomerular Filtration Rate 10 mL/min (>60); Est Glom Filt Rate - Afr Amer 12 mL/min (>60); Estimated Creatinine Clearance 8.15 ml/min; Globulin 4.3 g/dL (2.2-4.2); Glucose 101 mg/dL (74-106); Lipase 99 U/L (73-393); Potassium 5.5 mmol/L (3.5-5.1); Protein, Total 6.1 g/dL (6.4-8.2); Sodium Level 140 mmol/L (136-145)
--- NOTE | 2021-06-19 13:16 | ED.RN ---
dr consulted about sepsis alert. no additional orders placed. ras javier rn [id number]
[2021-06-19 13:54] LABS: Bacteria 0 SEEN /hpf (None Seen); Mucous, Urine 0 SEEN /hpf (<or=2+); Red Blood Cells-Urine 0 SEEN /hpf (0-5)
[2021-06-19 13:56] LABS: Color, Urine Yellow (Yellow); Glucose, Dipstick Normal (Normal); Ketone-Dipstick Negative (Negative); Leukocyte Esterase-Dipstick 25 /ul (Negative); Nitrite-Dipstick Negative (Negative); Occult Blood-Urine Negative /ul (Negative); Protein-Dipstick Negative (Negative); Urine Bilirubin Dipstick Negative (Negative); Urine Clarity Clear (Clear); Urine Urobilinogen Normal (Normal)
[2021-06-19 14:09] LABS: Squamous Epithelial Cells - UA 0-5 SEEN /hpf (5-10); White Blood Cells 0-5 SEEN /hpf (0-5)
[2021-06-19] MEDS: 0.9% Normal Saline 1,000 ML 999 ML IV (14:36)
--- NOTE | 2021-06-19 15:34 | CON.PCM.SX_ITS ---
Assessment & Plan Assessment/Plan (1) Acute diverticulitis: PLAN: I reviewed the patient's CT scan and the scan shows diverticulitis of the distal transverse colon. There is questionable perforation as well. There is not a lot of free air at all. If anything I see 1 small bubble. Patient's white count is elevated and her creatinine is markedly elevated. At this time I recommend conservative treatment. I will see if the hospitalist can admit the patient and work on hydration status and sepsis and I would recommend the patient remain n.p.o. on IV antibiotics and IV fluids. Continue to monitor. If there is any worsening in her vital signs or sepsis I would repeat a CT scan see if there is brunilda perforation that would necessitate surgery. I discussed this with the patient's daughter. Nnamdi Cooper MD Pager: [facility] [address] [place] [address], [address] [place] [phone] Office: HPI Consult Data Date of Consult: 06/19/21 HPI Narrative HPI Narrative: LOLLY HUSAIN, is a 86 F [facility]. She reports abdominal pain is on the left side. [facility] Medical History Abnormal bruising Alzheimer disease Anxiety Chronic neck and back pain Chronic pain Dementia Difficulty balancing when standing DVT (deep venous thrombosis) Hearing loss, left Hearing loss, right Incontinence Knee pain Migraines Non-smoker On home oxygen therapy Polyosteoarthritis Polyosteoarthritis Severe headache Shoulder pain SOB (shortness of breath) Home Medications atenolol 25 mg PO BID 06/09/15 [History Last Taken 12/31/20] multivitamin with folic acid [Thera] 1 tab PO DAILY 01/29/18 [History Last Taken 01/15/21 08:10] ferrous sulfate 325 mg PO DAILY 10/19/19 [History Last Taken 01/15/21 12:00] duloxetine 60 mg PO DAILY 12/31/20 [History Last Taken 01/14/21 09:00] gabapentin 100 mg PO DAILY 12/31/20 [History Last Taken 01/15/21 08:10] gabapentin 300 mg capsule 300 mg PO QHS cap 12/31/20 [History Last Taken 01/14/21 22:00] hydroxychloroquine 200 mg tablet 200 mg PO BID tab 12/31/20 [History Last Taken 01/15/21 06:30] amlodipine 10 mg PO DAILY 01/09/21 [History Last Taken 01/15/21 09:00] sennosides-docusate sodium [Stool Softener-Stimulant Laxat] 1 tab-cap PO BID 01/09/21 [History Last Taken 01/15/21 09:00] bupropion HCl 75 mg PO BID 01/16/21 [History Last Taken 01/15/21 06:30] pramipexole [Mirapex] 0.25 mg PO QHS 01/16/21 [History Last Taken 01/14/21 21:00] furosemide 40 mg PO DAILY 01/19/21 [History Last Taken Unknown] pantoprazole 40 mg PO BID 01/19/21 [History Last Taken Unknown] acetaminophen 1,000 mg PO Q6H PRN PRN #0 tab 02/10/21 [Rx Last Taken Unknown] albuterol sulfate [Ventolin HFA] 2 puff INHALATION BID #0 g 02/10/21 [Rx Last Taken Unknown] menthol-zinc oxide [Calmoseptine] 1 applic TOPICAL TID #0 g 02/10/21 [Rx Last Taken Unknown] nystatin [Nyamyc] 1 applic TOPICAL TID #0 g 02/10/21 [Rx Last Taken Unknown] Barrier Cream 1 applic TRANSDERMAL TID PRN PRN 06/05/21 [History Last Taken Unknown] alum-mag hydroxide-simeth [Erinn-Lanta] 15 ml PO Q4H PRN 06/05/21 [History Last Taken Unknown] bisacodyl [Dulcolax (bisacodyl)] 10 mg [place] DAILY PRN 06/05/21 [History Last Taken Unknown] donepezil 10 mg PO QHS 06/05/21 [History Last Taken Unknown] lidocaine 1 patch TOPICAL DAILY 06/05/21 [History Last Taken Unknown] sumatriptan succinate 50 mg PO DAILY PRN PRN 06/05/21 [History Last Taken Unknown] topiramate 25 mg PO BID 06/05/21 [History Last Taken Unknown] Lactobacillus rhamnosus GG [Culturelle] 1 cap PO DAILY 06/19/21 [History Last Taken Unknown] diclofenac sodium 75 mg PO BID 06/19/21 [History Last Taken Unknown] potassium chloride 20 meq PO DAILY 06/19/21 [History Last Taken Unknown] Allergy/AdvReac Type Severity Reaction Status Date / Time No Known Allergies Allergy Verified 06/19/21 12:22 Family History Mother No significant active problems Other Headache Surgical History History of appendectomy History of back surgery History of cholecystectomy History of foot surgery History of hernia surgery History of surgery on wrist S/P small bowel resection S/P small bowel resection (~05/2021) Small bowel perforation Social History household members: family housing: house Smoking Status: Never smoker alcohol intake: never ROS Review of Systems ROS Unobtainable: due to mental status Constitutional Constitutional: Denies anorexia or fatigue Respiratory/Chest Respiratory/Chest: Denies cough Gastrointestinal Gastrointestinal: Reports abdominal pain; Denies constipation or diarrhea Musculoskeletal Musculoskeletal: Denies abnormal gait Psychiatric Psychiatric: Denies anxiety Physical Exam Const alert Orientation / Consciousness: confused HEENT normocephalic Eyes PERRL Neck full ROM Resp normal respiratory effort Cardio Rate: regular rate GI soft to palpation Palpation: tender LLQ and LUQ Extremity normal to inspection Neuro CN's II-XII intact bilaterally Lab / Micro Data Result Diagrams: 06/19/21 12:30 06/19/21 12:30 Labs: Laboratory Results - last 24 hr 06/19/21 12:30: WBC 16.6 H, RBC 2.48 L, Hgb 7.1 L, Hct 23.1 L, MCV 93.1, MCH 28.6, MCHC 30.7 L, RDW Std Deviation 53.1 H, RDW Coeff of Laxmi 15.6 H, Plt Count 285, MPV 9.8, Immature Gran % (Auto) 0.700, Neut % (Auto) 87.7 H, Lymph % (Auto) 4.8 L, [place] % (Auto) 6.6, Eos % (Auto) 0.0, Baso % (Auto) 0.2, Absolute Neuts (auto) 14.5 H, Absolute Lymphs (auto) 0.79 L, Nucleated RBC % 0 06/19/21 12:30: Sodium 140, Potassium 5.5 H, Chloride 114 H, Carbon Dioxide 15.0 L, Anion Gap 11, BUN 89 H, Creatinine 4.54 H, Estim Creat Clear Calc 8.15, Est GFR (MDRD) Af Amer 12 L, Est GFR (MDRD) Non-Af 10 L, BUN/Creatinine Ratio 19.6, Glucose 101, Calcium 9.5, Total Bilirubin 0.50, AST 66 H, ALT 59 H, Alkaline Phosphatase 259 H, Total Protein 6.1 L, Albumin 1.8 L, Globulin 4.3 H, Albumin/Globulin Ratio 0.4 L, Lipase 99 06/19/21 13:49: Urine Color Yellow, Urine Clarity Clear, Urine pH 5.0, Ur Specific [place] 1.020, Urine Protein Negative, Urine Glucose (UA) Normal, Urine Ketones Negative, Urine Occult Blood Negative, Urine Nitrite Negative, Urine Bilirubin Negative, Urine Urobilinogen Normal, Ur Leukocyte Esterase 25 H, Urine RBC 0 SEEN, Urine WBC 0-5 SEEN, Ur Squamous Epith Cells 0-5 SEEN, Urine Bacteria 0 SEEN, Urine Mucus 0 SEEN Rhythm Strip Rhythm Strip: Sinus Rhythm Rate: 68 Ectopy: None Radiology Impression Abdomen/Pelvis CT 06/19/21 12:23 IMPRESSION: 1. Extensive acute left upper quadrant transverse diverticulitis with small perforation. No abscess. Electronically Signed: Tim Randle MD at 14:55 EST Tel , Service support ,
--- NOTE | 2021-06-19 15:53 | PCM.HP.STD ---
Documented by User: Jose MORA 06/19/21 16:55 HPI - General General Date of Admission: 06/19/21 Date of Service: 06/19/21 Chief Complaint: Abdominal pain with nausea and diarrhea. HPI Narrative LOLLY HUSAIN is an 86-year-old female who presents to the ED at [facility] on 06/19/2021 with a chief complaint of abdominal pain with nausea and diarrhea. Patient denies any vomiting with her nausea, patient also denies hematochezia, melena or hematemesis. Of note, patient was discharged to an extended care facility last month by Dr. Morton after receiving treatment in the hospital for an anastomotic leak status post small bowel resection with anastomosis. Per office visit on May 28 no complications from surgery or recent admission had been noted. Today patient reports with significant abdominal pain as well as nausea and vomiting. Patient is alert and oriented however her historical recall is limited. Vital signs in the ED are temperature of 97.8 ?F, BP of 167/140, HR of 67, RR of 23 and patient is currently satting 98% on room air. CBC demonstrates an elevated white count at 16,000, hemoglobin of 7.1 with platelets at 285,000. BMP demonstrates a potassium of 5.5, chloride of 114, creatinine of 4.54, elevated AST of 66 and ALT of 59 and alk phos of 259. CT of the abdomen pelvis demonstrates extensive acute left upper quadrant transverse diverticulitis with small perforation and no abscess. Dr. Cooper was consulted and would like the patient to be placed on IV antibiotics and fluids, and he will continue to monitor. [facility] Medical History Abnormal bruising Alzheimer disease Anxiety Chronic neck and back pain Chronic pain Dementia Difficulty balancing when standing DVT (deep venous thrombosis) Hearing loss, left Hearing loss, right Incontinence Knee pain Migraines Non-smoker On home oxygen therapy Polyosteoarthritis Polyosteoarthritis Severe headache Shoulder pain SOB (shortness of breath) Home Medications atenolol 25 mg PO BID 06/09/15 [History Last Taken 12/31/20] multivitamin with folic acid [Thera] 1 tab PO DAILY 01/29/18 [History Last Taken 01/15/21 08:10] ferrous sulfate 325 mg PO DAILY 10/19/19 [History Last Taken 01/15/21 12:00] duloxetine 60 mg PO DAILY 12/31/20 [History Last Taken 01/14/21 09:00] gabapentin 100 mg PO DAILY 12/31/20 [History Last Taken 01/15/21 08:10] gabapentin 300 mg capsule 300 mg PO QHS cap 12/31/20 [History Last Taken 01/14/21 22:00] hydroxychloroquine 200 mg tablet 200 mg PO BID tab 12/31/20 [History Last Taken 01/15/21 06:30] amlodipine 10 mg PO DAILY 01/09/21 [History Last Taken 01/15/21 09:00] sennosides-docusate sodium [Stool Softener-Stimulant Laxat] 1 tab-cap PO BID 01/09/21 [History Last Taken 01/15/21 09:00] bupropion HCl 75 mg PO BID 01/16/21 [History Last Taken 01/15/21 06:30] pramipexole [Mirapex] 0.25 mg PO QHS 01/16/21 [History Last Taken 01/14/21 21:00] furosemide 40 mg PO DAILY 01/19/21 [History Last Taken Unknown] pantoprazole 40 mg PO BID 01/19/21 [History Last Taken Unknown] acetaminophen 1,000 mg PO Q6H PRN PRN #0 tab 02/10/21 [Rx Last Taken Unknown] albuterol sulfate [Ventolin HFA] 2 puff INHALATION BID #0 g 02/10/21 [Rx Last Taken Unknown] menthol-zinc oxide [Calmoseptine] 1 applic TOPICAL TID #0 g 02/10/21 [Rx Last Taken Unknown] nystatin [Nyamyc] 1 applic TOPICAL TID #0 g 02/10/21 [Rx Last Taken Unknown] Barrier Cream 1 applic TRANSDERMAL TID PRN PRN 06/05/21 [History Last Taken Unknown] alum-mag hydroxide-simeth [Erinn-Lanta] 15 ml PO Q4H PRN 06/05/21 [History Last Taken Unknown] bisacodyl [Dulcolax (bisacodyl)] 10 mg NM DAILY PRN 06/05/21 [History Last Taken Unknown] donepezil 10 mg PO QHS 06/05/21 [History Last Taken Unknown] lidocaine 1 patch TOPICAL DAILY 06/05/21 [History Last Taken Unknown] sumatriptan succinate 50 mg PO DAILY PRN PRN 06/05/21 [History Last Taken Unknown] topiramate 25 mg PO BID 06/05/21 [History Last Taken Unknown] Lactobacillus rhamnosus GG [Culturelle] 1 cap PO DAILY 06/19/21 [History Last Taken Unknown] diclofenac sodium 75 mg PO BID 06/19/21 [History Last Taken Unknown] potassium chloride 20 meq PO DAILY 06/19/21 [History Last Taken Unknown] Allergy/AdvReac Type Severity Reaction Status Date / Time No Known Allergies Allergy Verified 06/19/21 12:22 Family History Mother No significant active problems Other Headache Surgical History History of appendectomy History of back surgery History of cholecystectomy History of foot surgery History of hernia surgery History of surgery on wrist S/P small bowel resection S/P small bowel resection (~05/2021) Small bowel perforation Social History household members: family housing: house Smoking Status: Never smoker alcohol intake: never ROS Constitutional Constitutional: Reports fatigue, malaise and weakness; Denies anorexia, change in weight, chills, fever(s), night sweats or other Eyes Eyes: Denies blurry vision, change in eye color, change in vision, discharge from eye(s), double vision, erythema, eye pain, loss of vision or other ENT HEENT: Denies abnormal hearing, dysphagia, ear pain, epistaxis, headache(s), hearing loss, nasal congestion, nasal discharge, post nasal drip, sinus pressure, sore throat or other Cardiovascular Cardiovascular: Denies chest pain, claudication, dyspnea on exertion, edema, lightheadedness, orthopnea, palpitations, paroxysmal nocturnal dyspnea, rapid heart rate, syncope or other Respiratory/Chest Respiratory/Chest: Denies cough, dyspnea, excessive phlegm production, hemoptysis, productive cough, shortness of breath at rest, shortness of breath with exertion, wheezing or other Gastrointestinal Gastrointestinal: Reports abdominal pain, diarrhea, loose stools and nausea; Denies coffee ground emesis, constipation, dyspepsia, hematemesis, hematochezia, melena, vomiting or other Genitourinary Genitourinary: Denies burning urination, difficulty urinating, dysuria, hematuria, nocturia, urinary frequency, urinary hesitancy, urinary incontinence, urinary urgency or other Musculoskeletal Musculoskeletal: Denies arthralgias, back pain, joint pain, joint stiffness, joint swelling, myalgias, neck pain or other Neurologic Neurologic: Denies abnormal gait, abnormal speech, confusion, disequilibrium, dizziness, focal weakness, headache(s), numbness, paresthesias, seizure-like activity, seizures, syncope, tingling, tremor(s) or other Psychiatric Psychiatric: Denies anxiety, depression, homicidal ideation, suicidal ideation or other Endocrine Endocrinology: Denies change in body appearance, cold intolerance, excessive sweating, heat intolerance, polydipsia, polyuria or other Hematologic/Lymphatic Hematologic/Lymphatic: Denies anemia, easy bleeding, easy bruising, lymphadenopathy or other Allergic/Immunologic Allergic/Immunologic: Denies rhinitis, hives, eczemia, asthma or other Vital Signs Vital Signs Vital Signs: 06/19/21 12:14 06/19/21 12:59 06/19/21 14:26 Temperature 98.1 F 98.1 F 98.0 F Temperature Source Oral Oral Temporal Pulse Rate 67 69 68 Respiratory Rate 24 H 21 H 15 Blood Pressure 116/62 109/48 L 189/111 H Blood Pressure Mean 80 68 137 Pulse Ox 96 96 100 Oxygen Delivery Method Room Air Room Air Room Air Oxygen Flow Rate (L/min) 06/19/21 15:45 Temperature 97.8 F Temperature Source Temporal Pulse Rate 67 Respiratory Rate 23 H Blood Pressure 167/140 H Blood Pressure Mean 149 Pulse Ox 98 Oxygen Delivery Method Nasal Cannula Oxygen Flow Rate (L/min) 2 Weight Weight: 172 lb 2.896 oz Body Mass Index (BMI) 28.6 Physical Exam Const alert and oriented x3 General Appearance: cooperative HEENT normocephalic, head/scalp atraumatic and hearing grossly normal bilaterally Eyes PERRL, EOMs intact bilaterally and conjunctivae normal Neck no lymphadenopathy, supple and no JVD Resp Effort and Inspection: tachypneic, respiratory distress and labored Auscultation: diminished lung sounds Cardio regular rate, regular rhythm, no murmurs and no JVD GI normal to inspection, nondistended, normoactive bowel sounds Palpation: tender epigastric Extremity normal to inspection, full ROM and no clubbing, cyanosis or edema Skin no rashes or lesions noted, no wounds, skin turgor normal and no jaundice Neuro CN's II-XII intact bilaterally Psych affect normal Results Lab / Micro Data Result Diagrams: 06/19/21 12:30 06/19/21 12:30 Labs: Laboratory Results - last 24 hr 06/19/21 12:30: WBC 16.6 H, RBC 2.48 L, Hgb 7.1 L, Hct 23.1 L, MCV 93.1, MCH 28.6, MCHC 30.7 L, RDW Std Deviation 53.1 H, RDW Coeff of Laxmi 15.6 H, Plt Count 285, MPV 9.8, Immature Gran % (Auto) 0.700, Neut % (Auto) 87.7 H, Lymph % (Auto) 4.8 L, [place] % (Auto) 6.6, Eos % (Auto) 0.0, Baso % (Auto) 0.2, Absolute Neuts (auto) 14.5 H, Absolute Lymphs (auto) 0.79 L, Nucleated RBC % 0 06/19/21 12:30: Sodium 140, Potassium 5.5 H, Chloride 114 H, Carbon Dioxide 15.0 L, Anion Gap 11, BUN 89 H, Creatinine 4.54 H, Estim Creat Clear Calc 8.15, Est GFR (MDRD) Af Amer 12 L, Est GFR (MDRD) Non-Af 10 L, BUN/Creatinine Ratio 19.6, Glucose 101, Calcium 9.5, Total Bilirubin 0.50, AST 66 H, ALT 59 H, Alkaline Phosphatase 259 H, Total Protein 6.1 L, Albumin 1.8 L, Globulin 4.3 H, Albumin/Globulin Ratio 0.4 L, Lipase 99 06/19/21 13:49: Urine Color Yellow, Urine Clarity Clear, Urine pH 5.0, Ur Specific [place] 1.020, Urine Protein Negative, Urine Glucose (UA) Normal, Urine Ketones Negative, Urine Occult Blood Negative, Urine Nitrite Negative, Urine Bilirubin Negative, Urine Urobilinogen Normal, Ur Leukocyte Esterase 25 H, Urine RBC 0 SEEN, Urine WBC 0-5 SEEN, Ur Squamous Epith Cells 0-5 SEEN, Urine Bacteria 0 SEEN, Urine Mucus 0 SEEN Rhythm Strip Rhythm Strip: Sinus Rhythm Rate: 68 Ectopy: None Radiology Impression Abdomen/Pelvis CT 06/19/21 12:23 IMPRESSION: 1. Extensive acute left upper quadrant transverse diverticulitis with small perforation. No abscess. Electronically Signed: Tim Randle MD at 14:55 EST Tel , Service support , Assessment & Plan Assessment/Plan (1) Diverticulitis: PLAN: Patient is an 86-year-old female who presents to the ED at [facility] on 06/19/2021 with a chief complaint of abdominal pain with nausea and diarrhea. Patient will be admitted for management of acute diverticulitis. 1) sepsis secondary to acute diverticulitis of the distal transverse colon Patient meets criteria for sepsis with an elevated respiratory rate of 23 breaths/min, CBC with leukocytosis at 16,000 and a elevated creatinine at 4.5. General surgery was consulted in the ED, Dr. Cooper would like to proceed with conservative management of IV antibiotics and fluids, no surgery planned at this time, will follow. Plan; admit to [facility] 3, initiate IV Zosyn and fluids, as needed medications ordered, CBC and CMP in a.m., lactate ordered, general surgery following. 2) normocytic anemia Hemoglobin currently 7.1, baseline is between 8 and 9. Already on iron supplementation. Type and screen with match ordered, will transfuse 1 unit of PRBCs if hemoglobin drops below 7. Continue to monitor CBC in a.m. 3) AGUSTIN Creatinine currently 4.5, baseline appears between 1.5 and 2. Will give fluids and continue to monitor BMP. 4) hyperkalemia Initial potassium obtained in the ED was 5.5, unclear etiology. We will continue fluids and hold home potassium supplementation. 5) depression/anxiety Continue Wellbutrin and Cymbalta. 6) dementia Patient was alert and oriented although unable to recall certain aspects of her medical history. Continue donepezil. 7) HTN Continue amlodipine, atenolol and Lasix. CODE STATUS: Full code Advance care planning: Patient's daughter ,Candi, is healthcare power of attorney at law and can make medical decisions for her mother. DVT prophylaxis -not indicated Patient seen by Jose Dupree PA-C, under the supervision of Dr. Parish. Documented by User: Dr. Julianne Parish MD 06/19/21 22:54 HPI - General General Date of Admission: 06/19/21 [facility] Medical History Abnormal bruising Alzheimer disease Anxiety Chronic neck and back pain Chronic pain Dementia Difficulty balancing when standing DVT (deep venous thrombosis) Hearing loss, left Hearing loss, right Incontinence Knee pain Migraines Non-smoker On home oxygen therapy Polyosteoarthritis Polyosteoarthritis Severe headache Shoulder pain SOB (shortness of breath) Home Medications atenolol 25 mg PO BID 06/09/15 [History Last Taken 12/31/20] multivitamin with folic acid [Thera] 1 tab PO DAILY 01/29/18 [History Last Taken 01/15/21 08:10] ferrous sulfate 325 mg PO DAILY 10/19/19 [History Last Taken 01/15/21 12:00] duloxetine 60 mg PO DAILY 12/31/20 [History Last Taken 01/14/21 09:00] gabapentin 100 mg PO DAILY 12/31/20 [History Last Taken 01/15/21 08:10] gabapentin 300 mg capsule 300 mg PO QHS cap 12/31/20 [History Last Taken 01/14/21 22:00] hydroxychloroquine 200 mg tablet 200 mg PO BID tab 12/31/20 [History Last Taken 01/15/21 06:30] amlodipine 10 mg PO DAILY 01/09/21 [History Last Taken 01/15/21 09:00] sennosides-docusate sodium [Stool Softener-Stimulant Laxat] 1 tab-cap PO BID 01/09/21 [History Last Taken 01/15/21 09:00] bupropion HCl 75 mg PO BID 01/16/21 [History Last Taken 01/15/21 06:30] pramipexole [Mirapex] 0.25 mg PO QHS 01/16/21 [History Last Taken 01/14/21 21:00] furosemide 40 mg PO DAILY 01/19/21 [History Last Taken Unknown] pantoprazole 40 mg PO BID 01/19/21 [History Last Taken Unknown] acetaminophen 1,000 mg PO Q6H PRN PRN #0 tab 02/10/21 [Rx Last Taken Unknown] albuterol sulfate [Ventolin HFA] 2 puff INHALATION BID #0 g 02/10/21 [Rx Last Taken Unknown] menthol-zinc oxide [Calmoseptine] 1 applic TOPICAL TID #0 g 02/10/21 [Rx Last Taken Unknown] nystatin [Nyamyc] 1 applic TOPICAL TID #0 g 02/10/21 [Rx Last Taken Unknown] Barrier Cream 1 applic TRANSDERMAL TID PRN PRN 06/05/21 [History Last Taken Unknown] alum-mag hydroxide-simeth [Erinn-Lanta] 15 ml PO Q4H PRN 06/05/21 [History Last Taken Unknown] bisacodyl [Dulcolax (bisacodyl)] 10 mg NM DAILY PRN 06/05/21 [History Last Taken Unknown] donepezil 10 mg PO QHS 06/05/21 [History Last Taken Unknown] lidocaine 1 patch TOPICAL DAILY 06/05/21 [History Last Taken Unknown] sumatriptan succinate 50 mg PO DAILY PRN PRN 06/05/21 [History Last Taken Unknown] topiramate 25 mg PO BID 06/05/21 [History Last Taken Unknown] Lactobacillus rhamnosus GG [Culturelle] 1 cap PO DAILY 06/19/21 [History Last Taken Unknown] diclofenac sodium 75 mg PO BID 06/19/21 [History Last Taken Unknown] potassium chloride 20 meq PO DAILY 06/19/21 [History Last Taken Unknown] Allergy/AdvReac Type Severity Reaction Status Date / Time No Known Allergies Allergy Verified 06/19/21 12:22 Family History Mother No significant active problems Other Headache Surgical History History of appendectomy History of back surgery History of cholecystectomy History of foot surgery History of hernia surgery History of surgery on wrist S/P small bowel resection S/P small bowel resection (~05/2021) Small bowel perforation Social History household members: family housing: house Smoking Status: Never smoker alcohol intake: never Results Lab / Micro Data Result Diagrams: 06/19/21 12:30 06/19/21 12:30 Charges/Coding Addendum Addendum: This patient was seen in conjunction with ABBY Ng. I have independently interviewed and examined the patient and reviewed pertinent historical, laboratory, and other data. Please refer to ABBY Ng's note for his patient's presentation, findings, and recommendations. I have reviewed and his note and concur with his documentation 86 y/o female with PMHx of Hypertension, Dementia, resident in a NH, s/p recent small bowel surgery x2 for leaked anastomosis comes in with persistent abdominal pain, nausea and vomiting and found to have extensive acute left upper quadrant transverse diverticulitis with small perforation. No abscess. Her vitals are stable. Labs show AGUSTIN, hyperkalemia Physical exam: General: Alert, Oriented x3, Cooperative, No apparent distress, Well developed, obese HEENT: Atraumatic Oral: Dry Mucosa Neck: Supple Lungs: Diminished to auscultation Cardiovascular: HS I+II, irregular, no murmurs Abdomen: Bowel Sounds Present, Soft, Generalised tenderness, guarding+ but no rebound tenderness Extremities:No bilateral pedal edema ASSESSMENT: 1. Acute extensive diverticulitis with stable small microperforation 2. AGUSTIN on CKD 3. Hyperkalemia 4. Non gap metabloic acidosis secondary to #2 5. Acute on chronic anemia 6. Hypertension 7. Dementia 8. RA 9.Depression 10. Migraine Plan: Type and crossmatch and transfuse 2 units of pRBC Gentle IVF IV zosyn NPO Repeat blood work in am Hold hydroxychloroquine
[2021-06-19 18:27] LABS: Lactic Acid 1.5 mmol/L (0.4-1.9)
[2021-06-19] MEDS: Albuterol 2.5 MG/3 ML VIAL.NEB. INHALATION (19:19)
[2021-06-19] MEDS: Piperacil/Tazobactam 3.375 GM/50 ML ML IV (21:04)
[2021-06-19] MEDS: Acetaminophen 500 MG Tablet 1000 MG PO (21:04)
[2021-06-19] MEDS: Pramipexole Di-HCl 0.25 MG Tablet PO (21:05)
[2021-06-19] MEDS: Senna/Docusate Sodium 1 Tablet PO (21:05)
[2021-06-19] MEDS: Pantoprazole Sodium 40 MG Tablet PO (21:05)
[2021-06-19] MEDS: buPROPion 75 MG Tablet PO (21:05)
[2021-06-19] MEDS: Donepezil HCl 10 MG Tablet PO (21:05)
[2021-06-19] MEDS: Atenolol 25 MG Tablet PO (21:05)
--- NOTE | 2021-06-19 23:44 | PCS.PANDOC ---
PANDEMIC DOCUMENTATION INITIATED: Date: 06/19/21 Time: 1899
[2021-06-20] VITALS (18 sets, daily range): BP systolic 80–141; BP diastolic 41–67; PULSE 66–80; RESP 16–20; TEMP 36.3–37.1; O2SAT 97–100
[2021-06-20] MEDS: Albuterol 2.5 MG/3 ML VIAL.NEB. INHALATION ×2 (07:01→19:14)
[2021-06-20 08:03] LABS: Absolute Lymphocyte Count 0.44 X10^3/uL (0.83-4.51); Absolute Neutrophil Count 11.6 X10^3/uL (2.0-7.7); Basophil# 0.04 X10^3/uL; Basophil% 0.3 % (0-1); Lymphocyte # 0.44 X10^3/ul (0.83-4.51); Lymphocyte % 3.4 % (19-41); Mean Corp Hgb Conc 32.1 g/dL (32-36); Mean Corpuscular Hgb 29.3 pg (27.0-32.0); Mean Corpuscular Volume 91.2 fL (81-99); Mean Platelet Vol. 9.5 fl (6.2-12.0); Monocyte# 0.61 X10^3/uL; Monocyte% 4.8 % (0-10); NRBC Flagged by Analyzer 0 % (0-5); Neutrophil # 11.62 X10^3/uL (2.7-7.7); Neutrophil % 90.8 % (47-70); POSITIVE DIFFERENTIAL YES; POSITIVE MORPHOLOGY YES; Platelet Count 187 K/mm3 (150-450); RBC Distribution Width CV 14.8 % (11.6-14.6); RBC Distribution Width SD 49.1 fl (35.1-43.9); Red Blood Count 3.07 M/mm3 (4.2-5.4); White Blood Count 12.8 K/mm3 (4.4-11.0)
[2021-06-20 08:07] LABS: Differential Indicated SCAN CRITERIA MET
[2021-06-20 08:24] LABS: ALB/GLOB Ratio 0.4 RATIO (0.9-2.4); AST(SGOT) 58 U/L (15-37); Alanine Aminotransfer ALT/SGPT 63 U/L (13-56); Albumin, Serum 1.6 g/dL (3.2-5.0); Alkaline Phosphatase 210 U/L (45-117); Anion Gap 12 (5-15); BUN 94 mg/dL (7-18); BUN/Creat Ratio 21.8 RATIO (10-20); Calcium,Total 9.3 mg/dL (8.5-10.1); Chloride 119 mmol/L (98-107); Creatinine, Serum 4.32 mg/dL (0.55-1.02); EST Glomerular Filtration Rate 10 mL/min (>60); Est Glom Filt Rate - Afr Amer 13 mL/min (>60); Estimated Creatinine Clearance 8.22 ml/min; Glucose 71 mg/dL (74-106); Protein, Total 5.6 g/dL (6.4-8.2); Sodium Level 144 mmol/L (136-145)
--- NOTE | 2021-06-20 08:47 | PCM.PN.SRG ---
Subjective Subjective Patient does report some improvement in her abdominal pain from yesterday. No nausea or vomiting. Objective Data Objective Data Vital Signs: Vital Signs Temp Pulse Resp BP Pulse Ox 98.3 F 66 20 H 111/64 100 06/20/21 05:50 06/20/21 07:01 06/20/21 07:01 06/20/21 05:50 06/20/21 05:50 Oxygen Flow Rate (L/min) 1 Oxygen Delivery Method Nasal Cannula Weight: 171 lb 1.259 oz Body Mass Index (BMI) 27.8 Intake & Output: Intake and Output for Last 24 Hours 06/18/21 06/19/21 06/20/21 23:59 23:59 23:59 Intake Total 2130 / 2130 850 / 850 Output Total 400 / 400 Balance 2130 / 2130 450 / 450 Lab / Micro Data Result Diagrams: 06/20/21 07:53 06/20/21 07:53 Labs: Laboratory Results - last 24 hr 06/19/21 12:30: WBC 16.6 H, RBC 2.48 L, Hgb 7.1 L, Hct 23.1 L, MCV 93.1, MCH 28.6, MCHC 30.7 L, RDW Std Deviation 53.1 H, RDW Coeff of Laxmi 15.6 H, Plt Count 285, MPV 9.8, Immature Gran % (Auto) 0.700, Neut % (Auto) 87.7 H, Lymph % (Auto) 4.8 L, [place] % (Auto) 6.6, Eos % (Auto) 0.0, Baso % (Auto) 0.2, Absolute Neuts (auto) 14.5 H, Absolute Lymphs (auto) 0.79 L, Nucleated RBC % 0 06/19/21 12:30: Sodium 140, Potassium 5.5 H, Chloride 114 H, Carbon Dioxide 15.0 L, Anion Gap 11, BUN 89 H, Creatinine 4.54 H, Estim Creat Clear Calc 8.15, Est GFR (MDRD) Af Amer 12 L, Est GFR (MDRD) Non-Af 10 L, BUN/Creatinine Ratio 19.6, Glucose 101, Calcium 9.5, Total Bilirubin 0.50, AST 66 H, ALT 59 H, Alkaline Phosphatase 259 H, Total Protein 6.1 L, Albumin 1.8 L, Globulin 4.3 H, Albumin/Globulin Ratio 0.4 L, Lipase 99 06/19/21 12:30: Blood Type A POSITIVE, Antibody Screen NEGATIVE, Crossmatch See Detail 06/19/21 13:49: Urine Color Yellow, Urine Clarity Clear, Urine pH 5.0, Ur Specific [place] 1.020, Urine Protein Negative, Urine Glucose (UA) Normal, Urine Ketones Negative, Urine Occult Blood Negative, Urine Nitrite Negative, Urine Bilirubin Negative, Urine Urobilinogen Normal, Ur Leukocyte Esterase 25 H, Urine RBC 0 SEEN, Urine WBC 0-5 SEEN, Ur Squamous Epith Cells 0-5 SEEN, Urine Bacteria 0 SEEN, Urine Mucus 0 SEEN 06/19/21 17:50: Lactic Acid 1.5 06/20/21 07:53: WBC 12.8 H, RBC 3.07 L, Hgb 9.0 L, Hct 28.0 L, MCV 91.2, MCH 29.3, MCHC 32.1, RDW Std Deviation 49.1 H, RDW Coeff of Laxmi 14.8 H, Plt Count 187, MPV 9.5, Immature Gran % (Auto) 0.700, Neut % (Auto) 90.8 H, Lymph % (Auto) 3.4 L, [place] % (Auto) 4.8, Eos % (Auto) 0.0, Baso % (Auto) 0.3, Absolute Neuts (auto) 11.6 H, Absolute Lymphs (auto) 0.44 L, Nucleated RBC % 0 06/20/21 07:53: Sodium 144, Potassium 5.0, Chloride 119 H, Carbon Dioxide 13.0 L, Anion Gap 12, BUN 94 H, Creatinine 4.32 H, Estim Creat Clear Calc 8.22, Est GFR (MDRD) Af Amer 13 L, Est GFR (MDRD) Non-Af 10 L, BUN/Creatinine Ratio 21.8 H, Glucose 71 L, Calcium 9.3, Total Bilirubin 1.00, AST 58 H, ALT 63 H, Alkaline Phosphatase 210 H, Total Protein 5.6 L, Albumin 1.6 L, Globulin 4.0, Albumin/Globulin Ratio 0.4 L Radiography Diagnostic Testing: Radiology Impression Abdomen/Pelvis CT 06/19/21 12:23 IMPRESSION: 1. Extensive acute left upper quadrant transverse diverticulitis with small perforation. No abscess. Electronically Signed: Tim Randle MD at 14:55 EST Tel , Service support , Rhythm Strip Rhythm Strip: Sinus Rhythm Rate: 68 Ectopy: None Physical Exam Const no apparent distress Resp normal respiratory effort GI soft to palpation Inspection: Negative for abdominal distention Palpation: tender Assessment & Plan Assessment/Plan (1) Diverticulitis: PLAN: Patient has diverticulitis of the distal transverse colon. Her white count is coming down on antibiotics. She was given 2 units of blood overnight and her hemoglobin responded appropriately. Her creatinine is slightly decreased. Continue IV fluids and IV antibiotics and continue n.p.o. Nnamdi Cooper MD Pager: [facility] [address] [place] [address], [address] [place] [phone] Office:
[2021-06-20 09:20] LABS: Differential Comment SCANNED
[2021-06-20] MEDS: 0.9% Normal Saline 1,000 ML 100 ML IV (10:00)
[2021-06-20] MEDS: buPROPion 75 MG Tablet PO (10:00)
[2021-06-20] MEDS: DULoxetine Hcl 60 MG Capsule PO (10:00)
[2021-06-20] MEDS: Piperacil/Tazobactam 3.375 GM/50 ML ML IV ×2 (10:00→23:13)
[2021-06-20] MEDS: Atenolol 25 MG Tablet PO (10:01)
[2021-06-20] MEDS: Furosemide 40 MG Tablet PO (10:01)
[2021-06-20] MEDS: Senna/Docusate Sodium 1 Tablet PO (10:01)
[2021-06-20] MEDS: Pantoprazole Sodium 40 MG Tablet PO ×2 (10:01→22:55)
[2021-06-20] MEDS: amLODIPine 10 MG Tablet PO (10:01)
[2021-06-20] MEDS: Ferrous Sulfate 325 MG Tablet PO (12:57)
--- NOTE | 2021-06-20 13:04 | PN.HOSP_ITS ---
Documented by User: Jose MORA 06/20/21 13:32 Subjective Subjective Patient is an 86-year-old female resting in bed, alert and oriented x3. patient was in distress over her SCDs and reports that they are uncomfortable for her. Although patient is alert and oriented she is unable to provide much insight into her current condition due to her chronic confusion from dementia. Other than the complaints about the SCDs, patient does not appear in acute distress otherwise. Objective Data Objective Data Vital Signs: Vital Signs Temp Pulse Resp BP Pulse Ox 98.0 F 74 20 H 95/41 L 100 06/20/21 10:12 06/20/21 10:12 06/20/21 10:12 06/20/21 10:12 06/20/21 10:12 Oxygen Flow Rate (L/min) 1 Oxygen Delivery Method Room Air Weight: 171 lb 1.259 oz Body Mass Index (BMI) 27.8 Intake & Output: Intake and Output for Last 24 Hours 06/18/21 06/19/21 06/20/21 23:59 23:59 23:59 Intake Total 2130 / 2130 850 / 850 Output Total 400 / 400 Balance 2130 / 2130 450 / 450 Lab / Micro Data Result Diagrams: 06/20/21 07:53 06/20/21 07:53 Labs: Laboratory Results - last 24 hr 06/19/21 12:30: Blood Type A POSITIVE, Antibody Screen NEGATIVE, Crossmatch See Detail 06/19/21 13:49: Urine Color Yellow, Urine Clarity Clear, Urine pH 5.0, Ur Specific [place] 1.020, Urine Protein Negative, Urine Glucose (UA) Normal, Urine Ketones Negative, Urine Occult Blood Negative, Urine Nitrite Negative, Urine Bilirubin Negative, Urine Urobilinogen Normal, Ur Leukocyte Esterase 25 H, Urine RBC 0 SEEN, Urine WBC 0-5 SEEN, Ur Squamous Epith Cells 0-5 SEEN, Urine Bacteria 0 SEEN, Urine Mucus 0 SEEN 06/19/21 17:50: Lactic Acid 1.5 06/20/21 07:53: WBC 12.8 H, RBC 3.07 L, Hgb 9.0 L, Hct 28.0 L, MCV 91.2, MCH 29.3, MCHC 32.1, RDW Std Deviation 49.1 H, RDW Coeff of Laxmi 14.8 H, Plt Count 187, MPV 9.5, Immature Gran % (Auto) 0.700, Neut % (Auto) 90.8 H, Lymph % (Auto) 3.4 L, [place] % (Auto) 4.8, Eos % (Auto) 0.0, Baso % (Auto) 0.3, Absolute Neuts (auto) 11.6 H, Absolute Lymphs (auto) 0.44 L, Nucleated RBC % 0, Differential Comment SCANNED 06/20/21 07:53: Sodium 144, Potassium 5.0, Chloride 119 H, Carbon Dioxide 13.0 L , Anion Gap 12, BUN 94 H, Creatinine 4.32 H, Estim Creat Clear Calc 8.22, Est GFR (MDRD) Af Amer 13 L, Est GFR (MDRD) Non-Af 10 L, BUN/Creatinine Ratio 21.8 H , Glucose 71 L, Calcium 9.3, Total Bilirubin 1.00, AST 58 H, ALT 63 H, Alkaline Phosphatase 210 H, Total Protein 5.6 L, Albumin 1.6 L, Globulin 4.0, Albumin/Globulin Ratio 0.4 L Radiography Diagnostic Testing: Radiology Impression Abdomen/Pelvis CT 06/19/21 12:23 IMPRESSION: 1. Extensive acute left upper quadrant transverse diverticulitis with small perforation. No abscess. Electronically Signed: Tim Randle MD at 14:55 EST Tel , Service support , Rhythm Strip Rhythm Strip: Sinus Rhythm Rate: 68 Ectopy: None Physical Exam Const alert, oriented x3 and no apparent distress HEENT head/scalp atraumatic and moist oral mucous membranes Head and Scalp: normocephalic Eyes PERRL, EOMs intact bilaterally and conjunctivae normal Neck no lymphadenopathy, supple and no JVD Resp normal respiratory effort, no retractions, no use of accessory muscles and clear to auscultation bilaterally Cardio regular rate, regular rhythm, no murmurs and no JVD GI normal to inspection, nondistended, normoactive bowel sounds, soft to palpation and non-tender Extremity normal to inspection, full ROM and no clubbing, cyanosis or edema Skin no rashes or lesions noted, no wounds, skin turgor normal and no jaundice Neuro CN's II-XII intact bilaterally Psych affect normal Assessment & Plan Assessment/Plan (1) Diverticulitis: PLAN: Day 1 Discharge planning: Current plan is for patient to return home, case management following. 1) sepsis secondary to acute diverticulitis of the distal transverse colon Patient continues to meet sepsis for SIRS criteria with an elevated respiratory rate, a leukocytosis of 12,000 (that is improved from admission) and a creatinine of 4.3. General surgery met with patient this morning and would like to continue with current antibiotic course, fluids and n.p.o. status. 2) normocytic anemia Hemoglobin currently 9.0, was transfused 2 units of PRBCs. We will not order stool guaiac due to recent GI surgery last month.Continue iron supplementation and continue to monitor CBC. 3) AGUSTIN Creatinine currently 4.3, improved from admission but still quite elevated. Nephrology consult ordered. 4) hyperkalemia Resolved, currently 5.0. We will continue to monitor. 5) hypertension Patient's diastolic pressure has been consistently in the low 40s throughout admission. Fluids ordered. Continue medications for other chronic conditions. DVT prophylaxis - SCDs Patient seen by Jose Dupree PA-C, under the supervision of Dr. Parish. Documented by User: Dr. Julianne Parish MD 06/20/21 13:46 Objective Data Lab / Micro Data Result Diagrams: 06/20/21 07:53 06/20/21 07:53 Charges/Coding Addendum Addendum: This patient was seen in conjunction with ABBY Ng. I have independently interviewed and examined the patient and reviewed pertinent historical, laboratory, and other data. Please refer to ABBY Ng's note for his patient's presentation, findings, and recommendations. I have reviewed and his note and concur with his documentation Patient was seen and examined. She received 2 units of packed RBCs overnight. Complains of abdominal discomfort. No nausea or vomiting. Physical exam: General: Alert, Oriented x3, Cooperative, No apparent distress, Well developed, obese HEENT: Atraumatic Oral: Dry Mucosa Neck: Supple Lungs: Diminished to auscultation Cardiovascular: HS I+II, irregular, no murmurs Abdomen: Bowel Sounds Present, Soft, Generalised tenderness, guarding+ but no rebound tenderness Extremities:No bilateral pedal edema ASSESSMENT: 1. Acute extensive diverticulitis with stable small microperforation 2. AGUSTIN on CKD 3. Hyperkalemia 4. Non gap metabloic acidosis secondary to #2 5. Acute on chronic anemia 6. Hypertension 7. Dementia 8. RA 9.Depression 10. Migraine Plan: Continue with n.p.o. status, IV Zosyn Increase IV fluids, monitor I's and O's strictly Repeat blood work in a.m. Consider nephrology consult and work-up if creatinine does not improve Visit Charges Inpatient E&M: 91187 Subs Hosp L2
[2021-06-20] MEDS: Acetaminophen 500 MG Tablet 1000 MG PO (14:45)
[2021-06-20] MEDS: 0.9% Normal Saline 1,000 ML 125 ML IV (18:41)
--- NOTE | 2021-06-20 18:49 | PCM.CONS.R ---
Assessment & Plan Assessment/Plan (1) AGUSTIN (acute kidney injury): PLAN: baseline cr is around 2.0. Admitted with cr 4.3. today 4.5. UA noted. CT abd without hydronephrosis. BP is ok. likely ATN in setting of sepsis. continue fluid resuscitation for now. no acute indications for [employer] Acidosis. non gap. will change fluids to bicarbonate fluidslikely tomorrow. HPI Consult Data Date of Consult: 06/20/21 HPI Narrative HPI Narrative: LOLLY HUSAIN, is a 86 F who presented to the hospital yesterday with complaints of abdomen pain. CT abd showed tranverse colon diverticulitis and possible perforation. seen by surgery. currently being managed conservatively. nephrology consulted for AGUSTIN. she is known to us from previous admits. has known history of CKD 3b. baseline cr around 2.0. admitted with cr 4.3 today worse. patient says she is making urine. ROS negative except above PFSH Medical History Abnormal bruising Alzheimer disease Anxiety Chronic neck and back pain Chronic pain Dementia Difficulty balancing when standing DVT (deep venous thrombosis) Hearing loss, left Hearing loss, right Incontinence Knee pain Migraines Non-smoker On home oxygen therapy Polyosteoarthritis Polyosteoarthritis Severe headache Shoulder pain SOB (shortness of breath) Home Medications atenolol 25 mg PO BID 06/09/15 [History Last Taken 12/31/20] multivitamin with folic acid [Thera] 1 tab PO DAILY 01/29/18 [History Last Taken 01/15/21 08:10] ferrous sulfate 325 mg PO DAILY 10/19/19 [History Last Taken 01/15/21 12:00] duloxetine 60 mg PO DAILY 12/31/20 [History Last Taken 01/14/21 09:00] gabapentin 100 mg PO DAILY 12/31/20 [History Last Taken 01/15/21 08:10] gabapentin 300 mg capsule 300 mg PO QHS cap 12/31/20 [History Last Taken 01/14/21 22:00] hydroxychloroquine 200 mg tablet 200 mg PO BID tab 12/31/20 [History Last Taken 01/15/21 06:30] amlodipine 10 mg PO DAILY 01/09/21 [History Last Taken 01/15/21 09:00] sennosides-docusate sodium [Stool Softener-Stimulant Laxat] 1 tab-cap PO BID 01/09/21 [History Last Taken 01/15/21 09:00] bupropion HCl 75 mg PO BID 01/16/21 [History Last Taken 01/15/21 06:30] pramipexole [Mirapex] 0.25 mg PO QHS 01/16/21 [History Last Taken 01/14/21 21:00] furosemide 40 mg PO DAILY 01/19/21 [History Last Taken Unknown] pantoprazole 40 mg PO BID 01/19/21 [History Last Taken Unknown] acetaminophen 1,000 mg PO Q6H PRN PRN #0 tab 02/10/21 [Rx Last Taken Unknown] albuterol sulfate [Ventolin HFA] 2 puff INHALATION BID #0 g 02/10/21 [Rx Last Taken Unknown] menthol-zinc oxide [Calmoseptine] 1 applic TOPICAL TID #0 g 02/10/21 [Rx Last Taken Unknown] nystatin [Nyamyc] 1 applic TOPICAL TID #0 g 02/10/21 [Rx Last Taken Unknown] Barrier Cream 1 applic TRANSDERMAL TID PRN PRN 06/05/21 [History Last Taken Unknown] alum-mag hydroxide-simeth [Erinn-Lanta] 15 ml PO Q4H PRN 06/05/21 [History Last Taken Unknown] bisacodyl [Dulcolax (bisacodyl)] 10 mg DE DAILY PRN 06/05/21 [History Last Taken Unknown] donepezil 10 mg PO QHS 06/05/21 [History Last Taken Unknown] lidocaine 1 patch TOPICAL DAILY 06/05/21 [History Last Taken Unknown] sumatriptan succinate 50 mg PO DAILY PRN PRN 06/05/21 [History Last Taken Unknown] topiramate 25 mg PO BID 06/05/21 [History Last Taken Unknown] Lactobacillus rhamnosus GG [Culturelle] 1 cap PO DAILY 06/19/21 [History Last Taken Unknown] diclofenac sodium 75 mg PO BID 06/19/21 [History Last Taken Unknown] potassium chloride 20 meq PO DAILY 06/19/21 [History Last Taken Unknown] Allergy/AdvReac Type Severity Reaction Status Date / Time No Known Allergies Allergy Verified 06/19/21 12:22 Family History Mother No significant active problems Other Headache Surgical History History of appendectomy History of back surgery History of cholecystectomy History of foot surgery History of hernia surgery History of surgery on wrist S/P small bowel resection S/P small bowel resection (~05/2021) Small bowel perforation Social History household members: family housing: house Smoking Status: Never smoker alcohol intake: never Physical Exam Narrative Alert awake oriented x 3 no obvious distress no pallor no icterus no JVD s1s2 no murmurs lungs clear abdomen tenderness no edema no cyanosis Lab / Micro Data Result Diagrams: 06/20/21 07:53 06/20/21 07:53 Labs: Laboratory Results - last 24 hr 06/19/21 12:30: Blood Type A POSITIVE, Antibody Screen NEGATIVE, Crossmatch See Detail 06/20/21 07:53: WBC 12.8 H, RBC 3.07 L, Hgb 9.0 L, Hct 28.0 L, MCV 91.2, MCH 29.3, MCHC 32.1, RDW Std Deviation 49.1 H, RDW Coeff of Laxmi 14.8 H, Plt Count 187, MPV 9.5, Immature Gran % (Auto) 0.700, Neut % (Auto) 90.8 H, Lymph % (Auto) 3.4 L, [place] % (Auto) 4.8, Eos % (Auto) 0.0, Baso % (Auto) 0.3, Absolute Neuts (auto) 11.6 H, Absolute Lymphs (auto) 0.44 L, Nucleated RBC % 0, Differential Comment SCANNED 06/20/21 07:53: Sodium 144, Potassium 5.0, Chloride 119 H, Carbon Dioxide 13.0 L, Anion Gap 12, BUN 94 H, Creatinine 4.32 H, Estim Creat Clear Calc 8.22, Est GFR (MDRD) Af Amer 13 L, Est GFR (MDRD) Non-Af 10 L, BUN/Creatinine Ratio 21.8 H, Glucose 71 L, Calcium 9.3, Total Bilirubin 1.00, AST 58 H, ALT 63 H, Alkaline Phosphatase 210 H, Total Protein 5.6 L, Albumin 1.6 L, Globulin 4.0, Albumin/Globulin Ratio 0.4 L Rhythm Strip Rhythm Strip: Sinus Rhythm Rate: 68 Ectopy: None
[2021-06-20] MEDS: 0.9% Normal Saline 1,000 ML 250 ML IV (21:00)
[2021-06-20] MEDS: Donepezil HCl 10 MG Tablet PO (22:55)
[2021-06-21] VITALS (47 sets, daily range): BP systolic 72–118; BP diastolic 37–98; PULSE 66–84; RESP 15–33; TEMP 36.4–37.2; O2SAT 95–100
[2021-06-21] MEDS: 0.9% Normal Saline 1,000 ML 125 ML IV ×2 (00:12→05:12)
--- NOTE | 2021-06-21 03:51 | PCM.PN.BLA ---
Progress Note Nurse reported patient is hypotensive and has black liquid stools. Normal saline bolus ordered. Change Protonix p.o. to IV. CBC and CMP already ordered in a.m. Change CBC and CMP to start.
[2021-06-21] MEDS: 0.9% Normal Saline 1,000 ML 999 ML IV (04:01)
[2021-06-21 04:32] LABS: Absolute Lymphocyte Count 0.37 X10^3/uL (0.83-4.51); Absolute Neutrophil Count 7.7 X10^3/uL (2.0-7.7); Basophil# 0.03 X10^3/uL; Basophil% 0.3 % (0-1); Eosinophil# 0.07 X10^3/uL; Eosinophils% 0.8 % (0-5); Hematocrit 21.9 % (37-47); Hemoglobin 6.9 g/dL (12.0-15.0); Lymphocyte # 0.37 X10^3/ul (0.83-4.51); Lymphocyte % 4.2 % (19-41); Mean Corp Hgb Conc 31.5 g/dL (32-36); Mean Corpuscular Hgb 29.2 pg (27.0-32.0); Mean Corpuscular Volume 92.8 fL (81-99); Mean Platelet Vol. 9.7 fl (6.2-12.0); Monocyte# 0.59 X10^3/uL; Monocyte% 6.7 % (0-10); NRBC Flagged by Analyzer 0 % (0-5); Neutrophil # 7.65 X10^3/uL (2.7-7.7); Neutrophil % 87.1 % (47-70); POSITIVE DIFFERENTIAL YES; POSITIVE MORPHOLOGY YES; Platelet Count 155 K/mm3 (150-450); RBC Distribution Width CV 15.8 % (11.6-14.6); RBC Distribution Width SD 52.6 fl (35.1-43.9); Red Blood Count 2.36 M/mm3 (4.2-5.4); White Blood Count 8.8 K/mm3 (4.4-11.0)
[2021-06-21 04:50] LABS: ALB/GLOB Ratio 0.3 RATIO (0.9-2.4); AST(SGOT) 37 U/L (15-37); Alanine Aminotransfer ALT/SGPT 43 U/L (13-56); Albumin, Serum 1.1 g/dL (3.2-5.0); Alkaline Phosphatase 169 U/L (45-117); Anion Gap 12 (5-15); BUN 101 mg/dL (7-18); BUN/Creat Ratio 22.2 RATIO (10-20); Calcium,Total 8.4 mg/dL (8.5-10.1); Chloride 125 mmol/L (98-107); Creatinine, Serum 4.54 mg/dL (0.55-1.02); EST Glomerular Filtration Rate 10 mL/min (>60); Est Glom Filt Rate - Afr Amer 12 mL/min (>60); Estimated Creatinine Clearance 7.82 ml/min; Globulin 3.5 g/dL (2.2-4.2); Glucose 57 mg/dL (74-106); Potassium 4.6 mmol/L (3.5-5.1); Protein, Total 4.6 g/dL (6.4-8.2); Sodium Level 147 mmol/L (136-145)
[2021-06-21 05:12] LABS: Differential Indicated SCAN CRITERIA MET
[2021-06-21] MEDS: Dextrose 50%-Water 25 GM/50 ML DISP.SYRIN IV ×2 (05:53→11:15)
[2021-06-21 06:41] LABS: Bedside Glucose 128 mg/dL (70-110)
--- NOTE | 2021-06-21 07:48 | PCM.PN.SRG ---
Subjective Subjective Patient moved to the ICU overnight due to black stools and hypotension. She actually reports improvement in her abdominal pain Objective Data Objective Data Vital Signs: Vital Signs Temp Pulse Resp BP Pulse Ox 97.5 F L 72 20 H 89/60 L 100 06/21/21 06:26 06/21/21 07:00 06/21/21 07:00 06/21/21 07:00 06/21/21 07:00 Oxygen Flow Rate (L/min) 1 Oxygen Delivery Method Room Air Weight: 177 lb Body Mass Index (BMI) 27.8 Intake & Output: Intake and Output for Last 24 Hours 06/19/21 06/20/21 06/21/21 23:59 23:59 23:59 Intake Total 2130 / 2130 2716.67 / 2716.67 2815 / 2815 Output Total 400 / 400 300 / 300 Balance 2130 / 2130 2316.67 / 2316.67 2515 / 2515 Lab / Micro Data Result Diagrams: 06/21/21 04:24 06/21/21 04:24 Labs: Laboratory Results - last 24 hr 06/19/21 12:30: Crossmatch See Detail 06/20/21 07:53: WBC 12.8 H, RBC 3.07 L, Hgb 9.0 L, Hct 28.0 L, MCV 91.2, MCH 29.3, MCHC 32.1, RDW Std Deviation 49.1 H, RDW Coeff of Laxmi 14.8 H, Plt Count 187, MPV 9.5, Immature Gran % (Auto) 0.700, Neut % (Auto) 90.8 H, Lymph % (Auto) 3.4 L, [place] % (Auto) 4.8, Eos % (Auto) 0.0, Baso % (Auto) 0.3, Absolute Neuts (auto) 11.6 H, Absolute Lymphs (auto) 0.44 L, Nucleated RBC % 0, Differential Comment SCANNED 06/20/21 07:53: Sodium 144, Potassium 5.0, Chloride 119 H, Carbon Dioxide 13.0 L, Anion Gap 12, BUN 94 H, Creatinine 4.32 H, Estim Creat Clear Calc 8.22, Est GFR (MDRD) Af Amer 13 L, Est GFR (MDRD) Non-Af 10 L, BUN/Creatinine Ratio 21.8 H, Glucose 71 L, Calcium 9.3, Total Bilirubin 1.00, AST 58 H, ALT 63 H, Alkaline Phosphatase 210 H, Total Protein 5.6 L, Albumin 1.6 L, Globulin 4.0, Albumin/Globulin Ratio 0.4 L 06/21/21 04:24: WBC 8.8, RBC 2.36 L, Hgb 6.9 L, Hct 21.9 L, MCV 92.8, MCH 29.2, MCHC 31.5 L, RDW Std Deviation 52.6 H, RDW Coeff of Laxmi 15.8 H, Plt Count 155, MPV 9.7, Immature Gran % (Auto) 0.900, Neut % (Auto) 87.1 H, Lymph % (Auto) 4.2 L, [place] % (Auto) 6.7, Eos % (Auto) 0.8, Baso % (Auto) 0.3, Absolute Neuts (auto) 7.7, Absolute Lymphs (auto) 0.37 L, Nucleated RBC % 0 06/21/21 04:24: Sodium 147 H, Potassium 4.6, Chloride 125 H, Carbon Dioxide 10.0 L, Anion Gap 12, BUN 101 H*, Creatinine 4.54 H, Estim Creat Clear Calc 7.82, Est GFR (MDRD) Af Amer 12 L, Est GFR (MDRD) Non-Af 10 L, BUN/Creatinine Ratio 22.2 H, Glucose 57 L, Calcium 8.4 L, Total Bilirubin 0.60, AST 37, ALT 43, Alkaline Phosphatase 169 H, Total Protein 4.6 L, Albumin 1.1 L, Globulin 3.5, Albumin/Globulin Ratio 0.3 L 06/21/21 06:34: POC Glucose 128 H Rhythm Strip Rhythm Strip: Sinus Rhythm Rate: 68 Ectopy: None Physical Exam Const no apparent distress Resp normal respiratory effort GI soft to palpation Palpation: tender Assessment & Plan Assessment/Plan (1) Diverticulitis: PLAN: Patient's white count has returned to normal and her abdomen is less tender than it was yesterday. (2) Acute upper gastrointestinal bleeding: PLAN: Patient developed melanotic stools overnight and hypotension. Hemoglobin dropped to 6.9 and she is being given two units of blood. I discussed this with the patient's daughter as the patient is confused. I discussed EGD with possible clipping or injection of any bleeding source. The procedure was discussed in detail with the patient's daughter as well as the risks. She is going to call her brother to decide on course of action. If they decide to proceed with EGD I will take her for endoscopy this morning to check for the source of bleeding and try to stop it. Nnamdi Cooper MD Pager: [facility] [address] [place] [address] [address] [place] [address] Office:
[2021-06-21] MEDS: 0.9% Saline Lock 10 ML Syringe IV ×2 (08:28→17:38)
[2021-06-21 08:35] LABS: Bedside Glucose 73 mg/dL (70-110)
--- NOTE | 2021-06-21 08:40 | CON.PCM.CC_ITS ---
Assessment & Plan Assessment/Plan (1) GI bleeding: (2) Diverticulitis: (3) Severe sepsis: (4) Debility: (5) Upper gastrointestinal bleed: (6) Dementia: PLAN: RECOMMENDATIONS: 1. Obtain H&H every 6. Transfuse 2 units packed red blood cells 2. Keep hemoglobin greater than 8 3. Hold on pressors at this time 4. Family meeting to discuss goals of therapy 5. Okay to proceed with the EGD if family agreeable IMPRESSIONS: 1. Hypovolemic shock secondary to sepsis versus GI bleed Patient has received 2 units of packed red blood cell, but has a hemoglobin of 7. This indicates a possible 5 unit bleed thus far. Patient has 2 units of packed red blood cells currently infusing. If family is agreeable, proceeding with an upper GI evaluation would be appropriate. Check H&H's every 6. Blood pressures appear to be responding to volume resuscitation at this time. We will hold on pressors. Patient is on antibiotics secondary to transverse diverticulitis. 2. Acute on chronic kidney disease stage III Patient with significant elevation of BUN and creatinine compared to baseline of approximately 2.5. Nephrology has been consulted. Prerenal etiology is suspected. Patient would likely be a relatively poor candidate for renal replacement therapy. Elevated BUN likely has component secondary to upper GI bleed. Await nephrology recommendations. 3. Advanced age/dementia/hypertension/multiple recent admissions/asthma/RA Complicates care, management, recovery and prognosis. Antihypertensives should be held given hypotension. Patient is currently a full code, but prognosis is very guarded at this time. Will discuss with family about current situation and attempt to address CODE STATUS. Addendum 9:42 AM: Family discussion with her daughter at the bedside. She is very clear that the patient would not want any life support but would like to proceed with endoscopy to see if bleeding could stop. Patient would be considered for hospice measures even if she had a good outcome with this procedure, but the bobby sarmadlizettelluvia does not want to make that decision at this time. We will continue with aggressive therapy. Family doubts that dialysis would be pursued if required. TIME: 48 minutes critical care time spent addressing patient's hypovolemic shock, acute GI bleed, acute kidney injury, review of all data and collaboration with care team (6:30 AM to 9 AM, 9:30 AM to 9:45 AM) HPI Consult Data Date of Consult: 06/21/21 HPI Narrative HPI Narrative: LOLLY HUSAIN is an 86 F, with past medical history listed below, who presented to [facility] on 06/19/2021 secondary to nausea, vomiting and diarrhea. Patient suffers from dementia and came from an extended care facility. Patient was not able to provide much additional information given her dementia, so the majority of information is from the electronic medical record. Patient reportedly has had abdominal surgery secondary to an infected mesh. Patient also has a history of recent IV antibiotic secondary to UTI at the [facility]. No fever been reported, but patient did have diffuse abdominal pain. In the ER, patient was afebrile, but tachypneic at 24. Patient was saturating 96% on room air and was normotensive. Laboratory work-up showed a white blood cell count of 16.6, hemoglobin of 7.1 and platelets of 285. Potassium was e levated at 5.5, BUN of 89 and creatinine of 4.5. Liver enzymes were up and albumin was low at 1.8. UA was unremarkable. CT of the abdomen showed extensive left upper quadrant transverse diverticulitis with a small perforation and an EKG showed sinus rhythm. Patient was evaluated by surgery in the ER and conservative therapy was recommended. Patient was given IV antibiotics and IV fluids and admitted to the floor for further evaluation. This morning, patient was transferred to the intensive care unit secondary to persistent hypotension. Patient had received 2 units of packed red blood cells, but had ongoing bloody bowel movements. Hemoglobin this morning was decreased to 6.9 and an additional 2 units of blood have been ordered. Patient reportedly was requiring supplemental oxygen on the floor, but this was quickly removed once arriving to the intensive care unit. Patient does report vague abdominal pain, but no dyspnea or nausea. Given patient's mental status, family was cont acted and asked to come in for a family meeting to discuss goals of therapy. They have not arrived at this time. The patient has been evaluated by nephrology and they are suspecting ATN secondary to sepsis. Fluid resuscitation was recommended. Unable to obtain review of systems secondary to baseline dementia [facility] Medical History (Updated 06/21/21 @ 08:[address] John Tamez MD) Abnormal bruising Alzheimer disease Anxiety Chronic neck and back pain Chronic pain Dementia Difficulty balancing when standing DVT (deep venous thrombosis) Hearing loss, left Hearing loss, right Incontinence Knee pain Migraines Non-smoker On home oxygen therapy Polyosteoarthritis Polyosteoarthritis Severe headache Shoulder pain SOB (shortness of breath) Medical History unable to obtain Home Medications atenolol 25 mg PO BID 06/09/15 [History Last Taken 12/31/20] multivitamin with folic acid [Thera] 1 tab PO DAILY 01/29/18 [History Last Taken 01/15/21 08:10] ferrous sulfate 325 mg PO DAILY 10/19/19 [History Last Taken 01/15/21 12:00] duloxetine 60 mg PO DAILY 12/31/20 [History Last Taken 01/14/21 09:00] gabapentin 100 mg PO DAILY 12/31/20 [History Last Taken 01/15/21 08:10] gabapentin 300 mg capsule 300 mg PO QHS cap 12/31/20 [History Last Taken 01/14/21 22:00] hydroxychloroquine 200 mg tablet 200 mg PO BID tab 12/31/20 [History Last Taken 01/15/21 06:30] amlodipine 10 mg PO DAILY 01/09/21 [History Last Taken 01/15/21 09:00] sennosides-docusate sodium [Stool Softener-Stimulant Laxat] 1 tab-cap PO BID 01/09/21 [History Last Taken 01/15/21 09:00] bupropion HCl 75 mg PO BID 01/16/21 [History Last Taken 01/15/21 06:30] pramipexole [Mirapex] 0.25 mg PO QHS 01/16/21 [History Last Taken 01/14/21 21:00] furosemide 40 mg PO DAILY 01/19/21 [History Last Taken Unknown] pantoprazole 40 mg PO BID 01/19/21 [History Last Taken Unknown] acetaminophen 1,000 mg PO Q6H PRN PRN #0 tab 02/10/21 [Rx Last Taken Unknown] albuterol sulfate [Ventolin HFA] 2 puff INHALATION BID #0 g 02/10/21 [Rx Last Taken Unknown] menthol-zinc oxide [Calmoseptine] 1 applic TOPICAL TID #0 g 02/10/21 [Rx Last Taken Unknown] nystatin [Nyamyc] 1 applic TOPICAL TID #0 g 02/10/21 [Rx Last Taken Unknown] Barrier Cream 1 applic TRANSDERMAL TID PRN PRN 10/30/21 [History Last Taken Un known] alum-mag hydroxide-simeth [Erinn-Lanta] 15 ml PO Q4H PRN 06/05/21 [History Last Taken Unknown] bisacodyl [Dulcolax (bisacodyl)] 10 mg NM DAILY PRN 06/05/21 [History Last Taken Unknown] donepezil 10 mg PO QHS 06/05/21 [History Last Taken Unknown] lidocaine 1 patch TOPICAL DAILY 06/05/21 [History Last Taken Unknown] sumatriptan succinate 50 mg PO DAILY PRN PRN 06/05/21 [History Last Taken Unkn own] topiramate 25 mg PO BID 06/05/21 [History Last Taken Unknown] Lactobacillus rhamnosus GG [Culturelle] 1 cap PO DAILY 06/19/21 [History Last Taken Unknown] diclofenac sodium 75 mg PO BID 06/19/21 [History Last Taken Unknown] potassium chloride 20 meq PO DAILY 06/19/21 [History Last Taken Unknown] Allergy/AdvReac Type Severity Reaction Status Date / Time No Known Allergies Allergy Verified 06/19/21 12:22 Family History Mother No significant active problems Other Headache Family History unable to obtain Surgical History History of appendectomy History of back surgery History of cholecystectomy History of foot surgery History of hernia surgery History of surgery on wrist S/P small bowel resection S/P small bowel resection (~05/2021) Small bowel perforation Surgical History unable to obtain Social History household members: family housing: house Smoking Status: Never smoker alcohol intake: never ROS ROS Narrative See HPI Physical Exam Const alert and no apparent distress Constitutional Narrative: Significant difficulty with more complex questions such as why are you here? Orientation / Consciousness: oriented to person HEENT head/scalp atraumatic and moist oral mucous membranes Head and Scalp: normocephalic Eyes PERRL, EOMs intact bilaterally and conjunctivae normal Neck no lymphadenopathy, supple and no JVD Chest inspection of chest normal Chest: symmetrical chest wall rise; Negative for crepitus Resp normal respiratory effort, no retractions, no use of accessory muscles and clear to auscultation bilaterally Cardio regular rate, regular rhythm, no murmurs, no rub, no gallops and no JVD GI normal to inspection, nondistended, normoactive bowel sounds and soft to palpation GI Narrative: Mild rebound tenderness Palpation: Negative for firm, guarding, pulsatile mass, tense ascites or abdominal wall crepitus Extremity normal to inspection, full ROM and no clubbing, cyanosis or edema Skin no rashes or lesions noted, no wounds, skin turgor normal and no jaundice Neuro CN's II-XII intact bilaterally Psych affect normal Lab / Micro Data Result Diagrams: 06/21/21 04:24 06/21/21 04:24 Labs: Laboratory Results - last 24 hr 06/19/21 12:30: Crossmatch See Detail 06/20/21 07:53: Differential Comment SCANNED 06/21/21 04:24: WBC 8.8, RBC 2.36 L, Hgb 6.9 L, Hct 21.9 L, MCV 92.8, MCH 29.2, MCHC 31.5 L, RDW Std Deviation 52.6 H, RDW Coeff of Laxmi 15.8 H, Plt Count 155, MPV 9.7, Immature Gran % (Auto) 0.900, Neut % (Auto) 87.1 H, Lymph % (Auto) 4.2 L, [place] % (Auto) 6.7, Eos % (Auto) 0.8, Baso % (Auto) 0.3, Absolute Neuts (auto) 7.7, Absolute Lymphs (auto) 0.37 L, Nucleated RBC % 0 06/21/21 04:24: Sodium 147 H, Potassium 4.6, Chloride 125 H, Carbon Dioxide 10.0 L, Anion Gap 12, BUN 101 H*, Creatinine 4.54 H, Estim Creat Clear Calc 7.82, Est GFR (MDRD) Af Amer 12 L, Est GFR (MDRD) Non-Af 10 L, BUN/Creatinine Ratio 22.2 H , Glucose 57 L, Calcium 8.4 L, Total Bilirubin 0.60, AST 37, ALT 43, Alkaline Phosphatase 169 H, Total Protein 4.6 L, Albumin 1.1 L, Globulin 3.5, Albumin/Globulin Ratio 0.3 L 06/21/21 06:34: POC Glucose 128 H 06/21/21 08:25: POC Glucose 73 Rhythm Strip Rhythm Strip: Sinus Rhythm Rate: 68 Ectopy: None Charges/Coding Procedures Hospitalists Procedures: 66289 Critial Care 1st Hr
--- NOTE | 2021-06-21 10:41 | OP.EGD_ITS ---
Patient Name: Jolene Akhtar Procedure Date: 06/21/2021 9:31 AM Date of : 1935 Age: 86 Procedure: Upper GI endoscopy Indications: Hematochezia Providers: Nnamdi Cooper MD Medicines: Monitored Anesthesia Care Patient Profile: This is an 86 year old female. Refer to note in patient chart for documentation of history and physical. Complications: No immediate complications. Procedure: Pre-Anesthesia Assessment: - Prior to the procedure, a History and Physical was performed, and patient medications and allergies were reviewed. The patient's tolerance of previous anesthesia was also reviewed. The risks and benefits of the procedure and the sedation options and risks were discussed with the patient. All questions were answered, and informed consent was obtained. Prior Anticoagulants: The patient has taken no previous anticoagulant or antiplatelet agents. After reviewing the risks and benefits, the patient was deemed in satisfactory condition to undergo the procedure. After obtaining informed consent, the endoscope was passed under direct vision. Throughout the procedure, the patient's blood pressure, pulse, and oxygen saturations were monitored continuously. The Endoscope was introduced through the and advanced to the. The gastroscope was introduced through the mouth, and advanced to the second part of duodenum. The upper GI endoscopy was accomplished without difficulty. The patient tolerated the procedure well. Scope In: 10:30:25 AM Scope Out: 10:31:46 AM Total Procedure Duration Time 0 hours 1 minute 21 seconds Findings: Localized moderate inflammation with hemorrhage characterized by adherent blood was found in the stomach. The esophagus was normal. The examined duodenum was normal. Impression: - Gastritis with hemorrhage. - Normal esophagus. - Normal examined duodenum. - No specimens collected. Recommendation: - Return patient to ICU for ongoing care. - NPO. - Continue present medications. Procedure Code(s): --- Professional --- 01282, Esophagogastroduodenoscopy, flexible, transoral; diagnostic, including collection of specimen(s) by brushing or washing, when performed (separate procedure) Diagnosis Code(s): --- Professional --- K29.71, Gastritis, unspecified, with bleeding K92.1, Melena (includes Hematochezia) CPT copyright 2017 [employer]. All rights reserved. The codes documented in this report are preliminary and upon grab hooker review may be revised to meet current compliance requirements. Nnamdi Cooper MD 06/21/2021 10:40:44 AM This report has been signed electronically. Number of Addenda: 0 Note Initiated On: 06/21/2021 9:31 AM
--- NOTE | 2021-06-21 10:46 | CASEMGMT ---
RN HUONG called [facility] and confirmed that patient is active with [facility] and last seen by STRUCTURAL ENGINEER with Palliative on 05/31/21. Slitter Helper, SW, and nursing updated.
--- NOTE | 2021-06-21 10:49 | PN.HOSP_ITS ---
Subjective Subjective Patient seen and examined. Daughter was by her bedside. Patient was quite lethargic. She was transferred to the ICU emergently overnight o/a of hypotension and concerns about GI bleed, as she was having dark stools. Hb has dropped to 6.9 today. She is also hyptensive, with BP down at 89/60 this morning. Sodium is up to 147 and bicarb is down to 10. Cr is up to 4.54 and BUN is 10. Objective Data Objective Data Vital Signs: Vital Signs Temp Pulse Resp BP Pulse Ox 97.5 F L 72 20 H 89/60 L 100 06/21/21 06:26 06/21/21 07:00 06/21/21 07:00 06/21/21 07:00 06/21/21 07:00 Oxygen Flow Rate (L/min) 1 Oxygen Delivery Method Room Air Weight: 177 lb Body Mass Index (BMI) 27.8 Intake & Output: Intake and Output for Last 24 Hours 06/19/21 06/20/21 06/21/21 23:59 23:59 23:59 Intake Total 2130 / 2130 2716.67 / 2716.67 3221.25 / 3221.25 Output Total 400 / 400 300 / 300 Balance 2130 / 2130 2316.67 / 2316.67 2921.25 / 2921.25 Lab / Micro Data Result Diagrams: 06/21/21 04:24 06/21/21 04:24 Labs: Laboratory Results - last 24 hr 06/19/21 12:30: Crossmatch See Detail 06/21/21 04:24: WBC 8.8, RBC 2.36 L, Hgb 6.9 L, Hct 21.9 L, MCV 92.8, MCH 29.2, MCHC 31.5 L, RDW Std Deviation 52.6 H, RDW Coeff of Laxmi 15.8 H, Plt Count 155, MPV 9.7, Immature Gran % (Auto) 0.900, Neut % (Auto) 87.1 H, Lymph % (Auto) 4.2 L, [place] % (Auto) 6.7, Eos % (Auto) 0.8, Baso % (Auto) 0.3, Absolute Neuts (auto) 7.7, Absolute Lymphs (auto) 0.37 L, Nucleated RBC % 0 06/21/21 04:24: Sodium 147 H, Potassium 4.6, Chloride 125 H, Carbon Dioxide 10.0 L, Anion Gap 12, BUN 101 H*, Creatinine 4.54 H, Estim Creat Clear Calc 7.82, Est GFR (MDRD) Af Amer 12 L, Est GFR (MDRD) Non-Af 10 L, BUN/Creatinine Ratio 22.2 H , Glucose 57 L, Calcium 8.4 L, Total Bilirubin 0.60, AST 37, ALT 43, Alkaline Phosphatase 169 H, Total Protein 4.6 L, Albumin 1.1 L, Globulin 3.5, Albumin/Globulin Ratio 0.3 L 06/21/21 06:34: POC Glucose 128 H 06/21/21 08:25: POC Glucose 73 Micro: Microbiology 06/21/21 05:00 Stool Stool Occult Blood (WILLIE) - Final Occult Blood Positive Rhythm Strip Rhythm Strip: Sinus Rhythm Rate: 68 Ectopy: None Physical Exam Const Constitutional Narrative: weak and lethargic Orientation / Consciousness: lethargic Exam Limitations: altered mental status HEENT head/scalp atraumatic and moist oral mucous membranes Head and Scalp: normocephalic Eyes PERRL, EOMs intact bilaterally and conjunctivae normal Neck no lymphadenopathy Resp normal respiratory effort, no retractions, no use of accessory muscles and clear to auscultation bilaterally Cardio regular rate, regular rhythm, S1 normal heart sound, S2 normal heart sound and no murmurs GI normal to inspection, nondistended, normoactive bowel sounds, soft to palpation, non-tender and non-distended Extremity normal to inspection, full ROM and no clubbing, cyanosis or edema Peripheral Pulses: Yes pulses 2+ throughout Neuro Neuro Narrative: lethargic, weak Sensorium / Orientation: awake Assessment & Plan Assessment/Plan (1) GI bleeding: (2) Diverticulitis: PLAN: #Acute on chronic anemia due to probable UGI bleed * Hb is down to 6.9 today * she was emergently transferred to ICU overnight due to hypotension * being transfused with PRBC * had emergent EGD today which showed evidence of gastritis. * on IV PPI. Will add on carafate * general surgery on board. * #Sepsis due o acue diverticulitis of the distal transverse colon * on IV zosyn * blood cultures pending * general surgery on board * #Hemorrhagic shock due to GI bleed * hb is 6.9 today. BP was running low, * being transfused with PRBCs. * #Hypertension: BP meds on hold due to hemorrhagic shock. #Non-anion gap metabolic acidosis * Likely due to AGUSTIN on CKD. * Bicarb is 10 today. Nephrology on board. * On bicarb drip. * #AGUSTIN on CKD stage III * Creatinine is up to 4.54 today. * Per nephrology likely due to ATN. Be hydrated with fluids. No need for renal placement therapy now. * Will monitor. * #Hypernatremia: Sodium is up to 147. * likely due to IVF as she was being hydrated with IVF * will trend and start D5W as needed * #Hyperkalemia:resolved #Dementia: On donepezil #Depression: Bupropion DVT prophylaxis: SCDs. No anticoagulation on account of GI bleed. Charges/Coding Visit Charges Inpatient E&M: 36932 Subs Hosp L3
[2021-06-21] MEDS: Albuterol 2.5 MG/3 ML VIAL.NEB. INHALATION ×2 (11:24→18:50)
[2021-06-21] MEDS: Furosemide 100 MG/10 ML Vial 80 MG IV (11:24)
[2021-06-21] MEDS: Piperacil/Tazobactam 3.375 GM/50 ML ML IV ×2 (11:37→22:11)
[2021-06-21 11:45] LABS: Bedside Glucose 41 mg/dL (70-110)
[2021-06-21 11:45] LABS: Bedside Glucose 100 mg/dL (70-110)
--- NOTE | 2021-06-21 12:17 | CASEMGMT ---
SW participated in ICU rounds this morning, pt's daughter present. Pt is here from [facility]. SW called Aide at [facility], pt is there skilled nursing private pay. SW faxed updates. Daughter has left, SW called her, offered support. SW did confirm w/daughter that pt is here from [facility]. SW asked pt's daughter if she is POA, she states that she is, and will bring in the paperwork for the living trust, will and POA to be copied. SW will continue to follow for support and discharge needs. PETER Jade
[2021-06-21 13:30] LABS: Bedside Glucose 88 mg/dL (70-110)
--- NOTE | 2021-06-21 14:14 | PCM.PN.REN ---
Subjective Subjective Resting in bed, no acute distress noted. Transferred to ICU. Objective Data Objective Data Vital Signs: Vital Signs Temp Pulse Resp BP Pulse Ox 97.7 F L 78 20 H 100/54 L 100 06/21/21 11:00 06/21/21 11:45 06/21/21 11:45 06/21/21 11:45 06/21/21 11:45 Oxygen Flow Rate (L/min) 1 Oxygen Delivery Method Room Air Weight: 80.286 kg Body Mass Index (BMI) 27.8 Intake & Output: Intake and Output for Last 24 Hours 06/19/21 06/20/21 06/21/21 23:59 23:59 23:59 Intake Total 2130 / 2130 2716.67 / 2716.67 3221.25 / 3221.25 Output Total 400 / 400 300 / 300 Balance 2130 / 2130 2316.67 / 2316.67 2921.25 / 2921.25 Lab / Micro Data Result Diagrams: 06/21/21 14:00 06/21/21 04:24 Labs: Laboratory Results - last 24 hr 06/19/21 12:30: Crossmatch See Detail 06/21/21 04:24: WBC 8.8, RBC 2.36 L, Hgb 6.9 L, Hct 21.9 L, MCV 92.8, MCH 29.2, MCHC 31.5 L, RDW Std Deviation 52.6 H, RDW Coeff of Laxmi 15.8 H, Plt Count 155, MPV 9.7, Immature Gran % (Auto) 0.900, Neut % (Auto) 87.1 H, Lymph % (Auto) 4.2 L, [place] % (Auto) 6.7, Eos % (Auto) 0.8, Baso % (Auto) 0.3, Absolute Neuts (auto) 7.7, Absolute Lymphs (auto) 0.37 L, Nucleated RBC % 0 06/21/21 04:24: Sodium 147 H, Potassium 4.6, Chloride 125 H, Carbon Dioxide 10.0 L, Anion Gap 12, BUN 101 H*, Creatinine 4.54 H, Estim Creat Clear Calc 7.82, Est GFR (MDRD) Af Amer 12 L, Est GFR (MDRD) Non-Af 10 L, BUN/Creatinine Ratio 22.2 H, Glucose 57 L, Calcium 8.4 L, Total Bilirubin 0.60, AST 37, ALT 43, Alkaline Phosphatase 169 H, Total Protein 4.6 L, Albumin 1.1 L, Globulin 3.5, Albumin/Globulin Ratio 0.3 L 06/21/21 06:34: POC Glucose 128 H 06/21/21 08:25: POC Glucose 73 06/21/21 10:57: POC Glucose 41 L* 06/21/21 11:40: POC Glucose 100 06/21/21 13:20: POC Glucose 88 06/21/21 14:00: Hgb 7.8 L, Hct 23.9 L Micro: Microbiology 06/21/21 05:00 Stool Stool Occult Blood (WILLIE) - Final Occult Blood Positive Rhythm Strip Rhythm Strip: Sinus Rhythm Rate: 68 Ectopy: None Physical Exam Narrative awake s1s2 no murmurs lungs clear anteriorly no pitting edema no cyanosis alexis with clear urine in bag Assessment & Plan Assessment/Plan (1) AGUSTIN (acute kidney injury): (2) GI bleeding: (3) Diverticulitis: (4) Hypotension: (5) Dementia: PLAN: Nonoliguric hypovolemic AGUSTIN on CKD, AGUSTIN secondary to ATN in setting of sepsis, hypotension and hypovolemic shock (hgb 6.9). Baseline Cr is around 2.0mg/dL. Admitted with SCr 4.54--> 4.3mg/dL 06/20 and today SCr 4.54mg/dL, BUN 101. UA noted. CT abd without hydronephrosis. Continue fluid resuscitation for now. At this time there is no acute indication for BULK INTAKE WORKER, K+ acceptable and patient is making urine (UOP 300ml so far today), however if renal function declines patient may be heading towards needing BULK INTAKE WORKER. Spoke with patient's RN who just spoke with patient's family/HCPOA who are coming in for meeting to discuss goals of care. Should family want BULK INTAKE WORKER likely patient would not do well given hypotension, advanced age, dementia, etc. Also, should family decide to start BULK INTAKE WORKER and patient would need BULK INTAKE WORKER in outpatient setting she would likely have difficult time with dialysis given history of Dementia, transferring to/from kidney center, etc. Will continue to follow and monitor for renal recovery. Acidosis. non gap. will change fluids to bicarbonate. Hypotension; transferred to ICU. Now on levophed gtt. hemoglobin 6.9; received PRBC. Patient had Upper GI today with findings of gastritis with hemorrhage
[2021-06-21 14:58] LABS: Hematocrit 30.5 % (37-47); Hemoglobin 10.1 g/dL (12.0-15.0)
--- NOTE | 2021-06-21 15:15 | CHAPLAIN ---
Type of Pastoral Visit _x__ Initial Visit ___ Follow-up Visit ___ On-call Visit ___ General Patient Visit ___ Spiritual Assessment ___ Family Conference ___ Bereavement ___ Rapid Response ___ Code Blue ___ Other (describe below) Pastoral Care Referral From ___ Patient _x__ Family ___ Nurse ___ Physician ___ Instructor Programmable Controllers ___ Crts ___ Other (describe below) Sacrament/Intervention _x__ Active listening ___ Anointing ___ Restoration ___ Bereavement ___ Communion ___ Krysten exploration ___ _x__ Life review _x__ Prayer ___ Reconciliation ___ Sacrament of Sick _x__ Supportive presence ___ Wedding ___ Other (describe below) Pastoral Comments met with daughter in hallway prior to patient visit; was present when RN described situation and possible outcomes to the daughter; a suggestion for hospice was made; daughter welcomes the support; visit made with the patient who is alert but limited in speaking and response to questions; pt has had many surgeries; is expected to speak with daughter again today; daughter welcomes future visits and support
[2021-06-21 15:16] LABS: Anion Gap 12 (5-15); BUN 90 mg/dL (7-18); BUN/Creat Ratio 19.8 RATIO (10-20); Chloride 124 mmol/L (98-107); Creatinine, Serum 4.55 mg/dL (0.55-1.02); EST Glomerular Filtration Rate 10 mL/min (>60); Est Glom Filt Rate - Afr Amer 12 mL/min (>60); Estimated Creatinine Clearance 7.81 ml/min; Glucose 131 mg/dL (74-106); Potassium 4.1 mmol/L (3.5-5.1); Sodium Level 149 mmol/L (136-145)
--- NOTE | 2021-06-21 15:16 | CASEMGMT ---
Addendum entered by July Avila 06/21/21 16:00: SW spoke w/hospice, they can speak w/daughter here tomorrow at 4pm. SW let daughter know. SW will continue to follow. PETER Jade Original Note: SW copied LW/POA forms, placed on chart, daughter Candi is Healthcare POA. SW spoke w/daughter at length about hospice, she is agreeable to speak w/hospice and review options. Daughter would like her brother here, asked if they can meet w/hospice tomorrow about 4pm. SW called [facility], faxed referral, asked about setting up a meeting tomorrow at 4pm, they are to call this SW back. PETER Jade
[2021-06-21] MEDS: Sucralfate 1 GM Tablet PO ×2 (17:37→22:17)
[2021-06-21] MEDS: Menthol/Lanolin/Calamine/Znox 113 GM Tube 1 APPLIC TOPICAL (17:37)
[2021-06-21 21:51] LABS: Hematocrit 33.4 % (37-47); Hemoglobin 10.9 g/dL (12.0-15.0)
[2021-06-22] VITALS (22 sets, daily range): BP systolic 89–126; BP diastolic 44–93; PULSE 74–87; RESP 17–29; TEMP 36.9–37.9; O2SAT 94–98
[2021-06-22 00:51] LABS: Bedside Glucose 86 mg/dL (70-110)
[2021-06-22 04:46] LABS: Absolute Lymphocyte Count 0.38 X10^3/uL (0.83-4.51); Absolute Neutrophil Count 10.1 X10^3/uL (2.0-7.7); Basophil# 0.05 X10^3/uL; Basophil% 0.4 % (0-1); Eosinophil# 0.17 X10^3/uL; Eosinophils% 1.4 % (0-5); Hematocrit 32.2 % (37-47); Hemoglobin 10.9 g/dL (12.0-15.0); Lymphocyte # 0.38 X10^3/ul (0.83-4.51); Lymphocyte % 3.2 % (19-41); Mean Corp Hgb Conc 33.9 g/dL (32-36); Mean Corpuscular Hgb 29.9 pg (27.0-32.0); Mean Corpuscular Volume 88.5 fL (81-99); Mean Platelet Vol. 9.2 fl (6.2-12.0); Monocyte# 0.71 X10^3/uL; NRBC Flagged by Analyzer 0.2 % (0-5); Neutrophil # 10.09 X10^3/uL (2.7-7.7); Neutrophil % 86.1 % (47-70); POSITIVE DIFFERENTIAL YES; POSITIVE MORPHOLOGY YES; Platelet Count 186 K/mm3 (150-450); RBC Distribution Width CV 15.5 % (11.6-14.6); RBC Distribution Width SD 50.2 fl (35.1-43.9); Red Blood Count 3.64 M/mm3 (4.2-5.4); White Blood Count 11.7 K/mm3 (4.4-11.0)
[2021-06-22 04:47] LABS: Differential Indicated SCAN CRITERIA MET
[2021-06-22 05:02] LABS: ALB/GLOB Ratio 0.3 RATIO (0.9-2.4); AST(SGOT) 20 U/L (15-37); Alanine Aminotransfer ALT/SGPT 37 U/L (13-56); Albumin, Serum 1.4 g/dL (3.2-5.0); Alkaline Phosphatase 186 U/L (45-117); Anion Gap 10 (5-15); BUN 86 mg/dL (7-18); Calcium,Total 8.8 mg/dL (8.5-10.1); Chloride 119 mmol/L (98-107); Creatinine, Serum 4.29 mg/dL (0.55-1.02); EST Glomerular Filtration Rate 10 mL/min (>60); Est Glom Filt Rate - Afr Amer 13 mL/min (>60); Estimated Creatinine Clearance 8.28 ml/min; Globulin 4.1 g/dL (2.2-4.2); Glucose 100 mg/dL (74-106); Potassium 3.2 mmol/L (3.5-5.1); Protein, Total 5.5 g/dL (6.4-8.2); Sodium Level 148 mmol/L (136-145)
[2021-06-22] MEDS: Sucralfate 1 GM Tablet PO (06:50)
--- NOTE | 2021-06-22 06:56 | PCM.PN.INT ---
Assessment & Plan Assessment/Plan (1) GI bleeding: (2) Diverticulitis: (3) Severe sepsis: (4) Debility: (5) Upper gastrointestinal bleed: (6) Dementia: PLAN: RECOMMENDATIONS: 1. Okay to transition to daily H&H's 2. Keep hemoglobin greater than 8 3. Await results of hospice meeting 4. Continue aggressive GI prophylaxis 5. Hemodynamically stable on room air. Will sign off from a critical care perspective IMPRESSIONS: 1. Hypovolemic shock secondary to sepsis versus GI bleed Patient has received a total of 4 units of packed red blood cells. H&H has remained stable despite continued black stools. Endoscopy showed only global gastritis. Blood pressures appear to be responding to volume resuscitation at this time. No indication pressors. Patient is on antibiotics secondary to transverse diverticulitis. Patient currently hemodynamically stable on room air. Will sign off from a critical care perspective 2. Acute on chronic kidney disease stage III Patient with significant elevation of BUN and creatinine compared to baseline of approximately 2.5. Nephrology has been consulted. Prerenal etiology is suspected. Patient would likely be a relatively poor candidate for renal replacement therapy. Elevated BUN likely has component secondary to upper GI bleed. Daughter is very clear that she would not want dialysis. Renal function appears to be stabilizing somewhat. 3. Advanced age/dementia/hypertension/multiple recent admissions/asthma/RA Complicates care, management, recovery and prognosis. Antihypertensives should be held given hypotension. Patient is currently a full code, but prognosis is very guarded at this time. Patient made DNR Comfort Care arrest without intubation yesterday. Family meeting with hospice later today. Subjective Subjective Patient did okay overnight. No acute issues were reported. Patient did have an endoscopy yesterday showing only gastritis. Patient is reporting minor dyspnea and vague abdominal pain. Patient continues to be oriented to self only. Nursing has reported continued black stools overnight. Family is reportedly meeting with hospice at 4 PM today. Objective Data Objective Data Vital Signs: Vital Signs Temp Pulse Resp BP Pulse Ox 36.9 C 77 21 H 105/51 L 95 06/22/21 04:00 06/22/21 06:00 06/22/21 06:00 06/22/21 06:00 06/22/21 06:00 Oxygen Flow Rate (L/min) 1 Oxygen Delivery Method Room Air Weight: 83.098 kg Body Mass Index (BMI) 27.8 Intake & Output: Intake and Output for Last 24 Hours 06/20/21 06/21/21 06/22/21 23:59 23:59 23:59 Intake Total 2716.67 / 2716.67 5151.25 / 5151.25 50 / 50 Output Total 400 / 400 1475 / 1475 450 / 450 Balance 2316.67 / 2316.67 3676.25 / 3676.25 -400 / -400 Lab / Micro Data Result Diagrams: 06/22/21 04:40 06/22/21 04:40 Labs: Laboratory Results - last 24 hr 06/19/21 12:30: Crossmatch See Detail 06/21/21 08:25: POC Glucose 73 06/21/21 10:57: POC Glucose 41 L* 06/21/21 11:40: POC Glucose 100 06/21/21 13:20: POC Glucose 88 06/21/21 14:00: Hgb Cancelled, Hct Cancelled 06/21/21 14:00: Sodium Cancelled, Potassium Cancelled, Chloride Cancelled, Carbon Dioxide Cancelled, Anion Gap Cancelled, BUN Cancelled, Creatinine Cancelled, Estim Creat Clear Calc Cancelled, Est GFR (MDRD) Af Amer Cancelled, Est GFR (MDRD) Non-Af Cancelled, BUN/Creatinine Ratio Cancelled, Glucose Cancelled, Calcium Cancelled 06/21/21 14:45: Sodium 149 H, Potassium 4.1, Chloride 124 H, Carbon Dioxide 13.0 L, Anion Gap 12, BUN 90 H, Creatinine 4.55 H, Estim Creat Clear Calc 7.81, Est GFR (MDRD) Af Amer 12 L, Est GFR (MDRD) Non-Af 10 L, BUN/Creatinine Ratio 19.8, Glucose 131 H, Calcium 9.0 06/21/21 14:45: Hgb 10.1 L, Hct 30.5 L 06/21/21 20:35: Hgb 10.9 L, Hct 33.4 L 06/22/21 00:42: POC Glucose 86 06/22/21 04:40: WBC 11.7 H, RBC 3.64 L, Hgb 10.9 L, Hct 32.2 L, MCV 88.5, MCH 29.9, MCHC 33.9 D, RDW Std Deviation 50.2 H, RDW Coeff of Laxmi 15.5 H, Plt Count 186, MPV 9.2, Immature Gran % (Auto) 2.900 H, Neut % (Auto) 86.1 H, Lymph % (Auto) 3.2 L, [place] % (Auto) 6.0, Eos % (Auto) 1.4, Baso % (Auto) 0.4, Absolute Neuts (auto) 10.1 H, Absolute Lymphs (auto) 0.38 L, Nucleated RBC % 0.2 06/22/21 04:40: Sodium 148 H, Potassium 3.2 L, Chloride 119 H, Carbon Dioxide 19.0 L, Anion Gap 10, BUN 86 H, Creatinine 4.29 H, Estim Creat Clear Calc 8.28, Est GFR (MDRD) Af Amer 13 L, Est GFR (MDRD) Non-Af 10 L, BUN/Creatinine Ratio 20.0, Glucose 100, Calcium 8.8, Total Bilirubin 0.60, AST 20, ALT 37, Alkaline Phosphatase 186 H, Total Protein 5.5 L, Albumin 1.4 L, Globulin 4.1, Albumin/Globulin Ratio 0.3 L Micro: Microbiology 06/21/21 05:00 Stool Stool Occult Blood (WILLIE) - Final Occult Blood Positive Rhythm Strip Rhythm Strip: Sinus Rhythm Rate: 68 Ectopy: None Physical Exam Const alert and no apparent distress Constitutional Narrative: More interactive today, but still confused Orientation / Consciousness: oriented to person HEENT head/scalp atraumatic and moist oral mucous membranes Head and Scalp: normocephalic Eyes PERRL, EOMs intact bilaterally and conjunctivae normal Neck no lymphadenopathy, supple and no JVD Chest inspection of chest normal Chest: symmetrical chest wall rise; Negative for crepitus Resp normal respiratory effort, no retractions, no use of accessory muscles and clear to auscultation bilaterally Cardio regular rate, regular rhythm, no murmurs, no rub, no gallops and no JVD GI normal to inspection, nondistended, normoactive bowel sounds and soft to palpation GI Narrative: Mild rebound tenderness Palpation: Negative for firm, guarding, pulsatile mass, tense ascites or abdominal wall crepitus Extremity normal to inspection, full ROM and no clubbing, cyanosis or edema Skin no rashes or lesions noted, no wounds, skin turgor normal and no jaundice Neuro CN's II-XII intact bilaterally Psych affect normal Charges/Coding Visit Charges Inpatient E&M: 35891 Subs Hosp L2
[2021-06-22] MEDS: Albuterol 2.5 MG/3 ML VIAL.NEB. INHALATION (07:07)
[2021-06-22] MEDS: Potassium Chloride 10mEq/100mL 10 MEQ/100 ML IV.SOLN. 100 MEQ IV BOLUS ×2 (08:03→09:06)
--- NOTE | 2021-06-22 09:36 | PCM.PN.REN ---
Subjective Subjective Resting in bed, awake, alert to name. No acute distress noted. Daughter Candi at bedside. Objective Data Objective Data Vital Signs: Vital Signs Temp Pulse Resp BP Pulse Ox 100.3 F H 82 20 H 100/68 95 06/22/21 08:00 06/22/21 08:00 06/22/21 08:00 06/22/21 08:00 06/22/21 08:00 Oxygen Flow Rate (L/min) 1 Oxygen Delivery Method Room Air Weight: 83.098 kg Body Mass Index (BMI) 27.8 Intake & Output: Intake and Output for Last 24 Hours 06/20/21 06/21/21 06/22/21 23:59 23:59 23:59 Intake Total 2716.67 / 2716.67 5151.25 / 5151.25 150 / 150 Output Total 400 / 400 1475 / 1475 450 / 450 Balance 2316.67 / 2316.67 3676.25 / 3676.25 -300 / -300 Lab / Micro Data Result Diagrams: 06/22/21 04:40 06/22/21 04:40 Labs: Laboratory Results - last 24 hr 06/19/21 12:30: Crossmatch See Detail 06/21/21 10:57: POC Glucose 41 L* 06/21/21 11:40: POC Glucose 100 06/21/21 13:20: POC Glucose 88 06/21/21 14:00: Hgb Cancelled, Hct Cancelled 06/21/21 14:00: Sodium Cancelled, Potassium Cancelled, Chloride Cancelled, Carbon Dioxide Cancelled, Anion Gap Cancelled, BUN Cancelled, Creatinine Cancelled, Estim Creat Clear Calc Cancelled, Est GFR (MDRD) Af Amer Cancelled, Est GFR (MDRD) Non-Af Cancelled, BUN/Creatinine Ratio Cancelled, Glucose Cancelled, Calcium Cancelled 06/21/21 14:45: Sodium 149 H, Potassium 4.1, Chloride 124 H, Carbon Dioxide 13.0 L, Anion Gap 12, BUN 90 H, Creatinine 4.55 H, Estim Creat Clear Calc 7.81, Est GFR (MDRD) Af Amer 12 L, Est GFR (MDRD) Non-Af 10 L, BUN/Creatinine Ratio 19.8, Glucose 131 H, Calcium 9.0 06/21/21 14:45: Hgb 10.1 L, Hct 30.5 L 06/21/21 20:35: Hgb 10.9 L, Hct 33.4 L 06/22/21 00:42: POC Glucose 86 06/22/21 04:40: WBC 11.7 H, RBC 3.64 L, Hgb 10.9 L, Hct 32.2 L, MCV 88.5, MCH 29.9, MCHC 33.9 D, RDW Std Deviation 50.2 H, RDW Coeff of Laxmi 15.5 H, Plt Count 186, MPV 9.2, Immature Gran % (Auto) 2.900 H, Neut % (Auto) 86.1 H, Lymph % (Auto) 3.2 L, [place] % (Auto) 6.0, Eos % (Auto) 1.4, Baso % (Auto) 0.4, Absolute Neuts (auto) 10.1 H, Absolute Lymphs (auto) 0.38 L, Nucleated RBC % 0.2 06/22/21 04:40: Sodium 148 H, Potassium 3.2 L, Chloride 119 H, Carbon Dioxide 19.0 L, Anion Gap 10, BUN 86 H, Creatinine 4.29 H, Estim Creat Clear Calc 8.28, Est GFR (MDRD) Af Amer 13 L, Est GFR (MDRD) Non-Af 10 L, BUN/Creatinine Ratio 20.0, Glucose 100, Calcium 8.8, Total Bilirubin 0.60, AST 20, ALT 37, Alkaline Phosphatase 186 H, Total Protein 5.5 L, Albumin 1.4 L, Globulin 4.1, Albumin/Globulin Ratio 0.3 L Micro: Microbiology 06/21/21 05:00 Stool Stool Occult Blood (WILLIE) - Final Occult Blood Positive Rhythm Strip Rhythm Strip: Sinus Rhythm Rate: 68 Ectopy: None Physical Exam Narrative awake s1s2 no murmurs lungs clear anteriorly no pitting edema no cyanosis alexis with clear urine in bag Assessment & Plan Assessment/Plan (1) AGUSTIN (acute kidney injury): (2) GI bleeding: (3) Diverticulitis: (4) Hypotension: (5) Dementia: PLAN: Nonoliguric hypovolemic AGUSTIN on CKD, AGUSTIN secondary to ATN in setting of sepsis, hypotension and hypovolemic shock (hgb 6.9). Baseline Cr is around 2.0mg/dL, baseline eGFR ~20-25ml/min. Admitted with SCr 4.54--> 4.3mg/dL, 06/20 SCr 4.54mg/dL BUN 101--> today Scr 4.29mg/dL and BUN 86. UA noted. CT abd without hydronephrosis. Continue fluid resuscitation, will decrease rate. At this time there is no acute indication for S[employer]IOR [employer]. If renal function declines patient may be heading towards needing SENIOR PROPERTY ACCOUNTANT. Likely patient would not do well with SENIOR PROPERTY ACCOUNTANT given hypotension, advanced age, dementia, etc., transferring to/from kidney center. I spoke to patient's daughter Candi today and explained above. Questions answered and Candi stated she did not want dialysis for her mother if it should come to that. Family meeting with Hospice today. Will continue to follow. Acidosis. non gap. Started bicarb gtt 06/21, will continue but decrease rate Hypernatremia: Sodium peaked 149, today sodium 148. Patient was on NS IVF. IVF changed to bicarb gtt 06/21. Lack of free water, currently NPO. Continue D5 with bicarb for another day. Hypokalemia: replacement ordered. Hypotension; transferred to ICU, now off levophed gtt. Bps improved hemoglobin was 6.9; received 4 units PRBC. Patient had Upper GI today with findings of gastritis. Today Hgb 10.9
[2021-06-22] MEDS: Piperacil/Tazobactam 3.375 GM/50 ML ML IV (11:34)
[2021-06-22] MEDS: Ferrous Sulfate 325 MG Tablet PO (11:41)
--- NOTE | 2021-06-22 13:15 | CASEMGMT ---
Addendum entered by July Avila 06/22/21 13:51: SW spoke w/pt and daughter in room. Daughter continues to say that plan would likely be to return to [facility] if they cannot take pt home. She states that they will not want pt to go to the inpt hospice unit. SW spoke w/Aide at [facility], if pt does return to [facility] on hospice she can return this evening, she would need a COVID test ahead of time however. PETER Jade Original Note: SW participated in ICU rounds this morning, as per physican, daughter most likely will want pt to return to [facility], possibly on hospice. SW received a message from Bhavna at [facility] asking about setting up a physician to physician conversation. This would be to see if pt would qualify for the inpt hospice unit. However, it is this SW's understanding from earlier that daughter would like for pt to return to [facility] at discharge. SW called [facility] back to explain this. SW also called [facility] to ask if family does sign for hospice, if pt can return to [facility] today. Aide at [facility] is to let this SW know. SW available for additional coordination. PETER Jade
--- NOTE | 2021-06-22 15:49 | PN.HOSP_ITS ---
Subjective Subjective Patient seen and examined. She was much more alert today. She had no active complaints and review of systems otherwise negative. Patient and family planning on meeting with hospice today at 4 PM to determine if patient will go with hospice or otherwise. Sodium is up to 148 today and potassium is 3.2. Bicarb is 19 and creatinine is down to 4.29. Objective Data Objective Data Vital Signs: Vital Signs Temp Pulse Resp BP Pulse Ox 100.3 F H 75 22 H 126/93 H 95 06/22/21 12:00 06/22/21 15:19 06/22/21 13:00 06/22/21 13:00 06/22/21 13:00 Oxygen Flow Rate (L/min) 1 Oxygen Delivery Method Room Air Weight: 183 lb 3.2 oz Body Mass Index (BMI) 27.8 Intake & Output: Intake and Output for Last 24 Hours 06/20/21 06/21/21 06/22/21 23:59 23:59 23:59 Intake Total 2716.67 / 2716.67 5151.25 / 5151.25 1543.33 / 1543.33 Output Total 400 / 400 1475 / 1475 450 / 450 Balance 2316.67 / 2316.67 3676.25 / 3676.25 1093.33 / 1093.33 Lab / Micro Data Result Diagrams: 06/22/21 04:40 06/22/21 04:40 Labs: Laboratory Results - last 24 hr 06/21/21 20:35: Hgb 10.9 L, Hct 33.4 L 06/22/21 00:42: POC Glucose 86 06/22/21 04:40: WBC 11.7 H, RBC 3.64 L, Hgb 10.9 L, Hct 32.2 L, MCV 88.5, MCH 29.9, MCHC 33.9 D, RDW Std Deviation 50.2 H, RDW Coeff of Laxmi 15.5 H, Plt Count 186, MPV 9.2, Immature Gran % (Auto) 2.900 H, Neut % (Auto) 86.1 H, Lymph % (Auto) 3.2 L, [place] % (Auto) 6.0, Eos % (Auto) 1.4, Baso % (Auto) 0.4, Absolute Neuts (auto) 10.1 H, Absolute Lymphs (auto) 0.38 L, Nucleated RBC % 0.2 06/22/21 04:40: Sodium 148 H, Potassium 3.2 L, Chloride 119 H, Carbon Dioxide 19.0 L, Anion Gap 10, BUN 86 H, Creatinine 4.29 H, Estim Creat Clear Calc 8.28, Est GFR (MDRD) Af Amer 13 L, Est GFR (MDRD) Non-Af 10 L, BUN/Creatinine Ratio 20.0, Glucose 100, Calcium 8.8, Total Bilirubin 0.60, AST 20, ALT 37, Alkaline Phosphatase 186 H, Total Protein 5.5 L, Albumin 1.4 L, Globulin 4.1, Albumin/Globulin Ratio 0.3 L Micro: Microbiology 06/22/21 14:10 Nasal Secretion SARS-CoV-2 Antigen (Rapid) - Final 06/21/21 05:00 Stool Stool Occult Blood (WILLIE) - Final Occult Blood Positive Rhythm Strip Rhythm Strip: Sinus Rhythm Rate: 68 Ectopy: None Physical Exam Const alert Constitutional Narrative: weak Nutritional Appearance: obese HEENT head/scalp atraumatic and moist oral mucous membranes Head and Scalp: normocephalic Eyes PERRL, EOMs intact bilaterally and conjunctivae normal Neck no lymphadenopathy Resp normal respiratory effort, no retractions, no use of accessory muscles and clear to auscultation bilaterally Cardio regular rate, regular rhythm, S1 normal heart sound, S2 normal heart sound and no murmurs GI normal to inspection, nondistended, normoactive bowel sounds, soft to palpation, non-tender and non-distended Extremity normal to inspection, full ROM and no clubbing, cyanosis or edema Peripheral Pulses: Yes pulses 2+ throughout Neuro CN's II-XII intact bilaterally and moves all extremities Neuro Narrative: has episodes of confusion Sensorium / Orientation: awake and alert Psych affect normal Assessment & Plan Assessment/Plan (1) GI bleeding: (2) Diverticulitis: PLAN: #Acute on chronic anemia due to probable UGI bleed * s/p transfusion with PRBC * Hemoglobin today is 10.9. * had emergent EGD which showed evidence of gastritis. * on IV PPI. Also on Carafate. * general surgery on board. * #Sepsis due to acue diverticulitis of the distal transverse colon * on IV zosyn * blood cultures pending * general surgery on board * #Hemorrhagic shock due to GI bleed * resolved. Hb today is 10.9 as above. * #Hypertension: BP meds on hold due to hemorrhagic shock. #Non-anion gap metabolic acidosis * Likely due to AGUSTIN on CKD. * Bicarb is up to 19 today. Nephrology on board. * On bicarb drip. * #AGUSTIN on CKD stage III * Creatinine is down to 4.29 today. * Per nephrology likely due to ATN. Been hydrated with IV fluids. * Will monitor. * #Hypernatremia: Sodium is up to 148 * likely due to IVF as she was being hydrated with IVF * * #Hyperkalemia:resolved #Dementia: On donepezil #Depression: Bupropion DVT prophylaxis: SCDs. No anticoagulation on account of GI bleed. Disposition: Family meeting with hospice today to determine if patient will leave with hospice or otherwise. Charges/Coding Visit Charges Inpatient E&M: 36148 [facility] Hosp L3
--- NOTE | 2021-06-22 15:52 | DS.PCM_ITS ---
Providers Date of Admission: 06/19/21 Primary Care Physician: Jose Fernández MD Consultations 06/20/21 13:12 Consult: Nephrology Routine Consulting Provider: Angel Garay Reason for Consult: Elevated creatinine. EMERGENT Consult: No Notified: Yes Date Notified: 06/20/21 Time Notified: 13:12 Method of Notification: Answering service notifie Method of Consult:: In-Person 06/21/21 06:56 Consult: Table Cover Folder / Pulmonary Medicine Routine Consulting Provider: John Tamez Reason for Consult: HYPOTENSION EMERGENT Consult: No Notified: Yes Date Notified: 06/21/21 Time Notified: 10:18 Method of Notification: Verbal Method of Consult:: In-Person Reason For Visit: ACUTE ABDOMEN Diagnosis Discharge Diagnosis (1) GI bleeding: Status: Acute Code(s): K92.2 - Gastrointestinal hemorrhage, unspecified (2) Diverticulitis: Status: Acute Code(s): K57.92 - Diverticulitis of intestine, part unspecified, without perforation or abscess without bleeding Medications at Discharge Home Medications atenolol 25 mg PO BID 06/09/15 multivitamin with folic acid [Thera] 1 tab PO DAILY 01/29/18 ferrous sulfate 325 mg PO DAILY 10/19/19 duloxetine 60 mg PO DAILY 12/31/20 gabapentin 100 mg PO DAILY 12/31/20 gabapentin 300 mg capsule 300 mg PO QHS cap 12/31/20 hydroxychloroquine 200 mg tablet 200 mg PO BID tab 12/31/20 amlodipine 10 mg PO DAILY 01/09/21 sennosides-docusate sodium [Stool Softener-Stimulant Laxat] 1 tab-cap PO BID 01/09/21 bupropion HCl 75 mg PO BID 01/16/21 pramipexole [Mirapex] 0.25 mg PO QHS 01/16/21 furosemide 40 mg PO DAILY 01/19/21 pantoprazole 40 mg PO BID 01/19/21 acetaminophen 1,000 mg PO Q6H PRN PRN #0 tab 02/10/21 albuterol sulfate [Ventolin HFA] 2 puff INHALATION BID #0 g 02/10/21 menthol-zinc oxide [Calmoseptine] 1 applic TOPICAL TID #0 g 02/10/21 nystatin [Nyamyc] 1 applic TOPICAL TID #0 g 02/10/21 Barrier Cream 1 applic TRANSDERMAL TID PRN PRN 06/05/21 alum-mag hydroxide-simeth [Erinn-Lanta] 15 ml PO Q4H PRN 06/05/21 bisacodyl [Dulcolax (bisacodyl)] 10 mg PA DAILY PRN 06/05/21 donepezil 10 mg PO QHS 06/05/21 lidocaine 1 patch TOPICAL DAILY 06/05/21 sumatriptan succinate 50 mg PO DAILY PRN PRN 06/05/21 topiramate 25 mg PO BID 06/05/21 Culturelle 1 cap PO DAILY 06/19/21 potassium chloride 20 meq PO DAILY 06/19/21 Hospital Course Operations None Procedures EGD Summary of Care Provided Minutes Spent on Discharge: 45 Hospital Course: Patient is an 86-year-old with a past medical history as outlined was admitted through the ED on 06/19/2021 with a complaint of nausea and vomiting and diarrhea. She was brought in from extended care facility. On admission, she was afebrile but was found to be tachypneic. CT of the abdomen showed extensive left upper quadrant transverse diverticulitis with a small perforation. General surgery was consulted and plan was for medical management with IV antibiotics. Patient was kept n.p.o. Patient was emergently transferred to the ICU, persistent hypotension. Hemoglobin had dropped to 6.9. She had been transfused with 2 units of blood and was transfused with 2 more. Gastroenterology was consulted and patient had emergent EGD which showed evidence of mild gastritis. Patient was also noted to have AGUSTIN on CKD and nephrology was consulted. She was thought to be having ATN due to sepsis and s he was hydrated with IV fluids. Patient stabilized and felt better. Family decided on hospice evaluation and patient and family met with hospice on 06/22/2021. She was accepted to hospice program and [facility] with [facility] care on 06/23/2021. Patient was seen and examined prior to discharge. She had no active complaints. Labs and vitals reviewed. Physical Exam Const alert Constitutional Narrative: weak Orientation / Consciousness: lethargic Exam Limitations: altered mental status Nutritional Appearance: obese HEENT head/scalp atraumatic and moist oral mucous membranes Eyes PERRL, EOMs intact bilaterally and conjunctivae normal Neck no lymphadenopathy Resp normal respiratory effort, no retractions, no use of accessory muscles and clear to auscultation bilaterally Cardio regular rate, regular rhythm, S1 normal heart sound, S2 normal heart sound and no murmurs GI normal to inspection, nondistended, normoactive bowel sounds, soft to palpation, non-tender and non-distended Extremity normal to inspection, full ROM and no clubbing, cyanosis or edema Neuro CN's II-XII intact bilaterally and moves all extremities Neuro Narrative: has episodes of confusion Sensorium / Orientation: awake and alert Psych affect normal Weight / BMI Weight Weight: 183 lb 3.2 oz Body Mass Index (BMI) 27.8 ABG / Lab / Microbiology Data Result Diagrams: 06/22/21 04:40 06/22/21 04:40 Laboratory: Laboratory Results - last 24 hr 06/21/21 20:35: Hgb 10.9 L, Hct 33.4 L 06/22/21 00:42: POC Glucose 86 06/22/21 04:40: WBC 11.7 H, RBC 3.64 L, Hgb 10.9 L, Hct 32.2 L, MCV 88.5, MCH 29.9, MCHC 33.9 D, RDW Std Deviation 50.2 H, RDW Coeff of Laxmi 15.5 H, Plt Count 186, MPV 9.2, Immature Gran % (Auto) 2.900 H, Neut % (Auto) 86.1 H, Lymph % (Auto) 3.2 L, [place] % (Auto) 6.0, Eos % (Auto) 1.4, Baso % (Auto) 0.4, Absolute Neuts (auto) 10.1 H, Absolute Lymphs (auto) 0.38 L, Nucleated RBC % 0.2 06/22/21 04:40: Sodium 148 H, Potassium 3.2 L, Chloride 119 H, Carbon Dioxide 19.0 L, Anion Gap 10, BUN 86 H, Creatinine 4.29 H, Estim Creat Clear Calc 8.28, Est GFR (MDRD) Af Amer 13 L, Est GFR (MDRD) Non-Af 10 L, BUN/Creatinine Ratio 20.0, Glucose 100, Calcium 8.8, Total Bilirubin 0.60, AST 20, ALT 37, Alkaline Phosphatase 186 H, Total Protein 5.5 L, Albumin 1.4 L, Globulin 4.1, Albumin/Globulin Ratio 0.3 L Microbiology: Microbiology 06/22/21 14:10 Nasal Secretion SARS-CoV-2 Antigen (Rapid) - Final 06/21/21 05:00 Stool Stool Occult Blood (WILLIE) - Final Occult Blood Positive D/C Instructions Discharge Diet: Low fat / Low cholesterol Discharge Activity: Return to Normal Activity Call your doctor if you observe: Shortness of breath, Dizziness, Swelling in the ankles, Chest pain and Increased palpitations (irregular heartbeat) Meaningful Use Info Meaningful Use Diagnoses (Choose all that apply): None applicable Discharge Plan Admission Admit Date/Time: 06/19/21 15:30 Primary Reason for Your Visit: acute on chronic anemia, sepsis due to acute diverticulitis Attending Provider: Danielle Berman Primary Care Provider: Jose Fernández Consulting Providers: Angel Garay ; John Tamez Discharge Orders/Prescriptions Prescriptions: Continued gabapentin 300 mg capsule 300 mg PO QHS RF: 0 hydroxychloroquine 200 mg tablet 200 mg PO BID RF: 0 atenolol 25 MG tablet 25 mg PO BID RF: 0 multivitamin with folic acid [Thera] 1 TABLET tablet 1 tab PO DAILY RF: 0 ferrous sulfate 325 MG tablet 325 mg PO DAILY RF: 0 gabapentin 100 mg capsule 100 mg PO DAILY RF: 0 duloxetine 60 mg capsule,delayed release(DR/EC) 60 mg PO DAILY RF: 0 amlodipine 10 mg tablet 10 mg PO DAILY RF: 0 sennosides-docusate sodium [Stool Softener-Stimulant Laxat] 8.6-50 mg tablet 1 tab-cap PO BID RF: 0 bupropion HCl 75 mg Tablet 75 mg PO BID RF: 0 pramipexole [Mirapex] 0.25 mg Tablet 0.25 mg PO QHS RF: 0 furosemide 40 mg tablet 40 mg PO DAILY RF: 0 pantoprazole 40 mg tablet,delayed release (DR/EC) 40 mg PO BID RF: 0 acetaminophen 500 mg Tablet 1,000 mg PO Q6H PRN PRN (Reason: Pain Score 1-10) Qty: 0 RF: 0 nystatin [Nyamyc] 100,000 unit/gram Powder 1 applic topical TID Qty: 0 RF: 0 albuterol sulfate [Ventolin HFA] 90 mcg/actuation Hfa Aerosol Inhaler 2 puff inhalation BID Qty: 0 RF: 0 menthol-zinc oxide [Calmoseptine] 0.44-20.6 % Ointment 1 applic topical TID Qty: 0 RF: 0 donepezil 10 mg tablet 10 mg PO QHS RF: 0 sumatriptan succinate 50 mg tablet 50 mg PO DAILY PRN PRN (Reason: Headache) RF: 0 topiramate 25 mg capsule, sprinkle 25 mg PO BID RF: 0 bisacodyl [Dulcolax (bisacodyl)] 10 mg Suppository 10 mg PA DAILY PRN (Reason: Constipation) RF: 0 lidocaine 5 % Adhesive Patch,Medicated 1 patch TOPICAL DAILY RF: 0 alum-mag hydroxide-simeth [Erinn-Lanta] 200-200-20 mg/5 mL Suspension 15 ml PO Q4H PRN (Reason: Heartburn) RF: 0 Barrier Cream 1 applic transdermal TID PRN PRN (Reason: Redness) RF: 0 Culturelle 15 billion cell Capsule, Sprinkle 1 cap PO DAILY RF: 0 potassium chloride 20 mEq Tablet Extended Release 20 meq PO DAILY RF: 0 Discontinued diclofenac sodium 75 mg Tablet,Delayed Release (Dr/Ec) 75 mg PO BID RF: 0 Referrals / Follow Up: Jose Fernández MD [Primary Care Provider] - Within 2 Weeks Disposition Disposition (needs filled in before D/C Order can be placed): Hospice in Medical Facility Charges/Coding Visit Charges Inpatient E&M: 23078 Disch Hosp
--- NOTE | 2021-06-22 17:18 | CHAPLAIN ---
Type of Pastoral Visit ___ Initial Visit _x__ Follow-up Visit ___ On-call Visit ___ General Patient Visit ___ Spiritual Assessment ___ Family Conference ___ Bereavement ___ Rapid Response ___ Code Blue ___ Other (describe below) Pastoral Care Referral From _x__ Patient _x__ Family ___ Nurse ___ Physician ___ Feeder Catcher Tobacco ___ Pipe Line Gauger ___ Other (describe below) Sacrament/Intervention _x__ Active listening ___ Anointing ___ Tenriism ___ Bereavement ___ Communion ___ Krysten exploration ___ ___ Life review _x__ Prayer ___ Reconciliation ___ Sacrament of Sick _x__ Supportive presence ___ Wedding ___ Other (describe below) Pastoral Comments family has gathered to meet with hospice; pt is alert and welcomes the visit and prayer prior to meeting; ongoing support available to pt and family
--- NOTE | 2021-06-22 18:42 | PCM.TXEXTCAR ---
Diet 06/22/21 13:29 Diet: Regular - General Is pt able to select menu?: No Problem/Diagnosis (1) GI bleeding: Status: Acute (2) Diverticulitis: Status: Acute Allergies/Procedures Done in Hospital Allergies No Known Allergies Allergy (Verified 06/19/21 12:22) Type of Care/Length of Stay Estimated LOS: More Than 30 Days Type of Care Needed: Intermediate Rehab Potential: Fair Prognosis: Fair Additional Orders/Day of Discharge Day of Discharge: 06/22/21 Dietary and Speech Recommendations Dietitian Recommendations/Changes: As medically able, rec advance PO as tolerated to Transitional diet with goal of Sodium-Restricted diet. Consider parenteral nutrition support if unable to advance PO nutrition in next 24-48 hours. Ensure Clear as needed when diet advanced from NPO. Discharge Plan Admission Admit Date/Time: 06/19/21 15:30 Primary Reason for Your Visit: acute on chronic anemia, sepsis due to acute diverticulitis Attending Provider: Danielle Berman Primary Care Provider: Jose Fernández Consulting Providers: Angel Garay ; John Tamez Discharge Orders/Prescriptions Prescriptions: Continued gabapentin 300 mg capsule 300 mg PO QHS RF: 0 hydroxychloroquine 200 mg tablet 200 mg PO BID RF: 0 atenolol 25 MG tablet 25 mg PO BID RF: 0 multivitamin with folic acid [Thera] 1 TABLET tablet 1 tab PO DAILY RF: 0 ferrous sulfate 325 MG tablet 325 mg PO DAILY RF: 0 gabapentin 100 mg capsule 100 mg PO DAILY RF: 0 duloxetine 60 mg capsule,delayed release(DR/EC) 60 mg PO DAILY RF: 0 amlodipine 10 mg tablet 10 mg PO DAILY RF: 0 sennosides-docusate sodium [Stool Softener-Stimulant Laxat] 8.6-50 mg tablet 1 tab-cap PO BID RF: 0 bupropion HCl 75 mg Tablet 75 mg PO BID RF: 0 pramipexole [Mirapex] 0.25 mg Tablet 0.25 mg PO QHS RF: 0 furosemide 40 mg tablet 40 mg PO DAILY RF: 0 pantoprazole 40 mg tablet,delayed release (DR/EC) 40 mg PO BID RF: 0 acetaminophen 500 mg Tablet 1,000 mg PO Q6H PRN PRN (Reason: Pain Score 1-10) Qty: 0 RF: 0 nystatin [Nyamyc] 100,000 unit/gram Powder 1 applic topical TID Qty: 0 RF: 0 albuterol sulfate [Ventolin HFA] 90 mcg/actuation Hfa Aerosol Inhaler 2 puff inhalation BID Qty: 0 RF: 0 menthol-zinc oxide [Calmoseptine] 0.44-20.6 % Ointment 1 applic topical TID Qty: 0 RF: 0 donepezil 10 mg tablet 10 mg PO QHS RF: 0 sumatriptan succinate 50 mg tablet 50 mg PO DAILY PRN PRN (Reason: Headache) RF: 0 topiramate 25 mg capsule, sprinkle 25 mg PO BID RF: 0 bisacodyl [Dulcolax (bisacodyl)] 10 mg Suppository 10 mg OR DAILY PRN (Reason: Constipation) RF: 0 lidocaine 5 % Adhesive Patch,Medicated 1 patch TOPICAL DAILY RF: 0 alum-mag hydroxide-simeth [Erinn-Lanta] 200-200-20 mg/5 mL Suspension 15 ml PO Q4H PRN (Reason: Heartburn) RF: 0 Barrier Cream 1 applic transdermal TID PRN PRN (Reason: Redness) RF: 0 Culturelle 15 billion cell Capsule, Sprinkle 1 cap PO DAILY RF: 0 potassium chloride 20 mEq Tablet Extended Release 20 meq PO DAILY RF: 0 Discontinued diclofenac sodium 75 mg Tablet,Delayed Release (Dr/Ec) 75 mg PO BID RF: 0 Referrals / Follow Up: Jose Fernández MD [Primary Care Provider] - Within 2 Weeks Disposition Disposition (needs filled in before D/C Order can be placed): Hospice in Medical Facility
== END 2021-06-22 21:20 | disposition hospice, inpatient (51) | DRG 871 ==
LOC: ED 15:42 → MS3 15:48 → ICU 06-21 06:24
PROVIDERS: Hospitalist; Internal Medicine Critical Care Medicine; Physician Assistant; Surgery; Admitting Provider Internal Medicine; Emergency Provider Emergency Medicine; PCP Family Medicine; Referring Provider Internal Medicine; Visit Provider Student in an Organized Health Care Education/Training Program
PROC: 0DJ08ZZ Inspection of Upper Intestinal Tract, Via Natural or Artificial Opening Endoscopic (ICD-10-PCS; CPT 43235; principal; 2021-06-21 10:25)
DX: A41.9 Sepsis, unspecified organism (principal); K57.21 Diverticulitis of large intestine with perforation and abscess with bleeding; N17.0 Acute kidney failure with tubular necrosis; K29.71 Gastritis, unspecified, with bleeding; R57.1 Hypovolemic shock; R57.8 Other shock; D62 Acute posthemorrhagic anemia; E87.2 Acidosis; K92.1 Melena; E87.0 Hyperosmolality and hypernatremia; I95.9 Hypotension, unspecified; K63.89 Other specified diseases of intestine; E87.5 Hyperkalemia; I12.9 Hypertensive chronic kidney disease with stage 1 through stage 4 chronic kidney disease, or unspecified chronic kidney disease; N18.32 Chronic kidney disease, stage 3b; M06.9 Rheumatoid arthritis, unspecified; M19.90 Unspecified osteoarthritis, unspecified site; G43.909 Migraine, unspecified, not intractable, without status migrainosus; G30.9 Alzheimer's disease, unspecified; J45.909 Unspecified asthma, uncomplicated; H91.93 Unspecified hearing loss, bilateral; E86.0 Dehydration; F02.80 Dementia in other diseases classified elsewhere, unspecified severity, without behavioral disturbance, psychotic disturbance, mood disturbance, and anxiety; F32.A Depression, unspecified; F41.9 Anxiety disorder, unspecified; R65.20 Severe sepsis without septic shock; Z66 Do not resuscitate; Z90.89 Acquired absence of other organs; Z90.49 Acquired absence of other specified parts of digestive tract; Z99.81 Dependence on supplemental oxygen; Z79.899 Other long term (current) drug therapy; Z87.440 Personal history of urinary (tract) infections
CPT/HCPCS: 36415; 74176; 80048; 80053; 81001; 82274; 82962; 83605; 83690; 85014; 85018; 85025; 86850; 86900; 86901; 86920; 86922; 87426; 93005; 94640; 97802; 99285; J7030; J7040; P9016; P9612; A4216; J1940; J2405